=== PATIENT | female | born 1935 | race Caucasian/White ===

== ENCOUNTER 2016-09-03 | Inpatient (IN) | payer MEDICARE, BC ==
[~2016-09-03] VITALS: Ht 162.6 cm; Wt 70.0 kg
[2016-09-03] VITALS (10 sets, daily range): BP systolic 136–176; BP diastolic 66–88; PULSE 77–108; RESP 14–21; TEMP 97.2–99; O2SAT 97–100
[~2016-09-03] MED LIST: ALPR0.25 PO; AMLO10TA2 PO; ESTR0.5T PO; HYDR12.57 PO; LIOT5TAB3 PO; LOVA20TA PO; METO50TA PO; RAMI10CA PO
[2016-09-03 01:12] LABS: AUTOMATED NEUTROPHIL # 20.8 TH/MM3 (1.8-7.7); BASOPHIL % 0.2 % (0.0-2.0); EOSINOPHIL # 0.1 TH/MM3 (0-0.4); EOSINOPHIL % 0.3 % (0.0-4.0); HEMATOCRIT 44.8 % (35.0-46.0); HEMO FLAGS DIFF FINAL; MEAN CELL VOLUME 94.2 FL (80.0-100.0); MEAN CORPUSCULAR HEMOGLOBIN 32.6 PG (27.0-34.0); MEAN CORPUSCULAR HGB CONC 34.6 % (32.0-36.0); MONO % 6.2 % (0.0-8.0); NEUT % 85.3 % (16.0-70.0); PLATELET COUNT 346 TH/MM3 (150-450); RED BLOOD COUNT 4.76 MIL/MM3 (4.00-5.30); RED CELL DISTRIBUTION WIDTH 13.6 % (11.6-17.2); WHITE BLOOD COUNT 24.4 TH/MM3 (4.0-11.0)
[2016-09-03 01:25] LABS: BICARBONATE 21.6 MEQ/L (21.0-32.0); POTASSIUM 3.3 MEQ/L (3.5-5.1)
[2016-09-03] MEDS ORDERED: ONDANSETRON HCL 4 MG/2 ML VIAL IV PUSH ONE (02:00)
[2016-09-03] MEDS ORDERED: SODIUM CHLOR 0.9% 1000 ML INJ 1,000 ML IV ONE (02:00)
[2016-09-03] MEDS ORDERED: VANCOMYCIN INJ 1,000 MG in SODIUM CHLOR 0.9% 250 ML INJ 250 ML IV ONE (02:15)
[2016-09-03] MEDS ORDERED: AZTREONAM INJ 2,000 MG in SODIUM CHLORIDE 0.9% INJ 100 ML IV ONE (02:15)
[2016-09-03] MEDS ORDERED: metroNIDAZOLE 500 MG INJ 100 ML IV ONE (02:15)
--- NOTE | 2016-09-03 02:26 | PD ---
HPI Chief Complaint: GI Complaint Time Seen by Provider: 01:48 Travel History International Travel<30 days: No Contact w/Intl Traveler<30days: No Traveled to known affect area: No History of Present Illness HPI 81yo F with PMH of afib s/p ablation by Dr. Monge, hypothyroidism presents to the ED with c/o generalized weakness and lightheadedness for 3 days. Started having NBNB vomiting at 8pm last night and now started having diarrhea. Denies any abdominal pain at this time. States only discomfort when she vomits. Denies any chest pain, sob, focal weakness or numbness, trauma or spinning of the room. PFSH Past Medical History Hx Anticoagulant Therapy: No Arthritis: Yes (LUMBAR AREA) Asthma: No Atrial Fibrillation: Yes Autoimmune Disease: No Blood Disorders: No Anxiety: Yes Depression: No Heart Rhythm Problems: Yes Cancer: No Cardiac Catheterization: No Cardiovascular Problems: Yes (AFIB ) High Cholesterol: Yes Chemotherapy: No Chest Pain: No Congestive Heart Failure: No COPD: No Cerebrovascular Accident: No Diabetes: No Diminished Hearing: No Endocrine: No Gastrointestinal Disorders: No GERD: No Glaucoma: No Genitourinary: Yes (URINARY TRACT INFECTION IN 2006) Headaches: No Hepatitis: No Hiatal Hernia: No Heparin Induced Thrombocytopen: No Hypertension: Yes Immune Disorder: No Implanted Vascular Access Dvce: Yes Kidney Stones: No Musculoskeletal: Yes (DIFFICULTY WALKING R/T HIP SURGERIES) Neurologic: No Psychiatric: Yes Reproductive: Yes (CYSTS ON OVARY ) Respiratory: No Immunizations Current: Yes Migraines: No Myocardial Infarction: No Radiation Therapy: No Renal Failure: No Seizures: No Sickle Cell Disease: No Sleep Apnea: No Thyroid Disease: No Ulcer: No Influenza Vaccination: Yes PNEUMOCCOCAL Vaccine (Year): 3 Menopausal: Yes Past Surgical History Abdominal Surgery: No AICD: No Appendectomy: No Arteriovenous Shunt: No Cardiac Surgery: Yes (X 3 ABLATIONS FOR A-FIB) Cholecystectomy: No Coronary Artery Bypass Graft: No Ear Surgery: No Endocrine Surgery: No Eye Surgery: No Genitourinary Surgery: No Gynecologic Surgery: Yes (hysterectomy at 52y.o. ) Hysterectomy: Yes Insulin Pump: No Joint Replacement: Yes (bilat hips) Neurologic Surgery: No Oral Surgery: No Pacemaker: No Thoracic Surgery: No Other Surgery: Yes Family History Family Myocardial Infarction: Yes Social History Alcohol Use: No Tobacco Use: No (quit at 27 years of age) Substance Use: No Allergies-Medications (Allergen,Severity, Reaction): Coded Allergies: Ceclor (Verified Allergy, Severe, RASH, 09/03/16) Sulfa (Verified Allergy, Severe, RASH, 09/03/16) Cipro (Verified Allergy, Unknown, GI UPSET, 09/03/16) Clonidine (Verified Allergy, Unknown, SKIN IRRITATION, 09/03/16) Uncoded Allergies: latex bandages (Allergy, Mild, SKIN REDNESS, RASH, 05/10/13) Reported Meds & Prescriptions Reported Meds & Active Scripts Active Reported Liothyronine (Liothyronine Sodium) 5 Mcg Tab 5 Mcg PO DAILY Hydrochlorothiazide 12.5 Mg Cap 12.5 Mg PO DAILY Amlodipine (Amlodipine Besylate) 10 Mg Tab 10 Mg PO DAILY Lovastatin 20 Mg Tab 20 Mg PO DAILY Metoprolol Tartrate 50 Mg Tab 50 Mg PO BID Ramipril 10 Mg Cap 10 Mg PO BID Alprazolam 0.25 Mg Tab 0.25 Mg PO Q6H PRN Estradiol 0.5 Mg Tab 0.5 Mg PO WEEKLY Review of Systems Except as stated in HPI: all other systems reviewed are Neg Physical Exam Narrative GENERAL: 81yo F not in distress. SKIN: Warm and dry. HEAD: Atraumatic. Normocephalic. EYES: Pupils equal and round. No scleral icterus. No injection or drainage. ENT: No nasal bleeding or discharge. Mucous membranes pink and moist. NECK: Trachea midline. No JVD. CARDIOVASCULAR: Regular rate and rhythm. No murmur appreciated. RESPIRATORY: No accessory muscle use. Clear to auscultation. Breath sounds equal bilaterally. GASTROINTESTINAL: Abdomen soft, non-tender, nondistended. No rebound tenderness or guarding. MUSCULOSKELETAL: No obvious deformities. No clubbing. No cyanosis. No edema. NEUROLOGICAL: Awake and alert. No obvious cranial nerve deficits. Motor grossly within normal limits. Normal speech. PSYCHIATRIC: Appropriate mood and affect; insight and judgment normal. Data Data Last Documented VS Vital Signs Date Time Temp Pulse Resp B/P Pulse Ox O2 Delivery O2 Flow Rate FiO2 09/03/16 03:44 95 20 136/88 98 Room Air 09/03/16 00:03 97.2 Orders Complete Blood Count With Diff (09/03/16 00:16) Basic Metabolic Panel (Bmp) (09/03/16 00:16) Influenzae A/B Antigen (09/03/16 00:16) Ondansetron Inj (Zofran Inj) (09/03/16 02:00) Sodium Chlor 0.9% 1000 Ml Inj (Ns 1000 M (09/03/16 02:00) Blood Culture (09/03/16 02:03) Lactic Acid Sepsis Protocol (09/03/16 02:03) Urinalysis - C+S If Indicated (09/03/16 02:03) Chest, Single Ap (09/03/16 ) Electrocardiogram (09/03/16 ) Vancomycin Inj (Vancomycin Inj) (09/03/16 02:15) Aztreonam Inj (Azactam Inj) (09/03/16 02:15) Metronidazole 500 Mg Inj (Flagyl 500 Mg (09/03/16 02:15) Potassium Chloride (Kcl) (09/03/16 03:15) Admit Order (Ed Use Only) (09/03/16 04:03) Vancomycin Consult Pharmacy (Vancomycin (09/03/16 04:00) Metronidazole 500 Mg Inj (Flagyl 500 Mg (09/03/16 10:00) Aztreonam Inj (Azactam Inj) (09/03/16 13:00) Pantoprazole Inj (Protonix Inj) (09/03/16 04:00) Admit To Inpatient (09/03/16 ) Vital Signs (Adult) Q4H (09/03/16 04:00) Activity Oob With Assistance (09/03/16 04:00) Cable Cutter And Swager / Telemetry .CONTINUOUS (09/03/16 04:00) Intake + Output EVA.QSHIFT (09/03/16 04:00) Diet Regular Basic (09/03/16 Breakfast) Sodium Chlor 0.9% 1000 Ml Inj (Ns 1000 M (09/03/16 04:00) Sodium Chloride 0.9% Flush (Ns Flush) (09/03/16 04:00) Sodium Chloride 0.9% Flush (Ns Flush) (09/03/16 09:00) Ondansetron Inj (Zofran Inj) (09/03/16 04:00) Bisacodyl Supp (Dulcolax Supp) (09/03/16 04:00) Comprehensive Metabolic Panel (09/04/16 06:00) Complete Blood Count With Diff (09/04/16 06:00) Scd Bilateral/Knee High EVA.BID (09/03/16 04:00) Rodriguez Bilateral/Knee High EVA.QSHIFT (09/03/16 04:00) Acetaminophen (Tylenol) (09/03/16 04:00) Acetamin-Hydrocod 325-5 Mg ([place] 5-325 (09/03/16 04:00) Morphine Inj (Morphine Inj) (09/03/16 04:00) Inpatient Certification (09/03/16 ) Labs Laboratory Tests Test 09/03/16 09/03/16 00:51 03:00 White Blood Count 24.4 TH/MM3 Red Blood Count 4.76 MIL/MM3 Hemoglobin 15.5 GM/DL Hematocrit 44.8 % Mean Corpuscular Volume 94.2 FL Mean Corpuscular Hemoglobin 32.6 PG Mean Corpuscular Hemoglobin 34.6 % Concent Red Cell Distribution Width 13.6 % Platelet Count 346 TH/MM3 Mean Platelet Volume 7.4 FL Neutrophils (%) (Auto) 85.3 % Lymphocytes (%) (Auto) 8.0 % Monocytes (%) (Auto) 6.2 % Eosinophils (%) (Auto) 0.3 % Basophils (%) (Auto) 0.2 % Neutrophils # (Auto) 20.8 TH/MM3 Lymphocytes # (Auto) 2.0 TH/MM3 Monocytes # (Auto) 1.5 TH/MM3 Eosinophils # (Auto) 0.1 TH/MM3 Basophils # (Auto) 0.0 TH/MM3 CBC Comment DIFF FINAL Differential Comment Sodium Level 131 MEQ/L Potassium Level 3.3 MEQ/L Chloride Level 99 MEQ/L Carbon Dioxide Level 21.6 MEQ/L Anion Gap 10 MEQ/L Blood Urea Nitrogen 36 MG/DL Creatinine 1.18 MG/DL Estimat Glomerular Filtration 44 ML/MIN Rate Random Glucose 194 MG/DL Calcium Level 8.6 MG/DL Lactic Acid Level 1.7 mmol/L [facility] Medical Decision Making Medical Screen Exam Complete: Yes Emergency Medical Condition: Yes Interpretation(s) EKG: NSR 98bpm. LAD. +PACs. Differential Diagnosis Electrolyte abnormality vs. dehydration vs. UTI Narrative Course 81yo F with generalized weakness for 3 days. Labs reviewed, leukocytosis at 24.4. HR over 90 so empirically covered with antibiotics with no known source. Pt given vancomycin, aztreonam, and metronidazole. Pt given given zofran and IVF NS. Pt had some cough so CXR ordered which showed cardiomegaly with atelectasis. Potassium mildly decreased, replaced orally. Pt admitted for sepsis and dehydration. Diagnosis Primary Impression: Sepsis Qualified Code: A41.9 - Sepsis, due to unspecified organism Admitting Information Admitting Physician Requests: Admit Gardenia Lancaster DO Sep 03, 2016 02:26
--- NOTE | 2016-09-03 03:05 | RADRPT ---
EXAM DATE/TIME: 09/03/2016 02:27 [place] COMPARISON: CHEST SINGLE AP, July 07, 2016, 18:16. INDICATIONS : Chest discomfort, vomiting starting today MEDICAL HISTORY : None. SURGICAL HISTORY : None. ENCOUNTER: Initial ACUITY: 1 day PAIN SCORE: 0/10 LOCATION: Bilateral chest FINDINGS: The cardiac silhouette is enlarged in transverse diameter. There is prominence of the aortic knob is with calcification characteristic of atherosclerotic vascular disease. There is subsegmental atelecta sis in the left base. There is no evidence of pneumonia. CONCLUSION: 1. Cardiomegaly 2. Subsegmental atelectasis left base. Robert Garza MD on September 03, 2016 at 3:03 Board Certified Radiologist. This report was verified electronically.
[2016-09-03] MEDS ORDERED: POTASSIUM CHLORIDE 20 MEQ CONTROLLED RELEASE TAB PO ONE (03:15)
[2016-09-03] MEDS ORDERED: ONDANSETRON HCL 4 MG/2 ML VIAL IVP PRN (04:00)
[2016-09-03] MEDS ORDERED: ACETAMINOPHEN/HYDROcodone 325 MG/5 MG TAB PO PRN (04:00)
[2016-09-03] MEDS ORDERED: BISACODYL 10 MG SUPP PR PRN (04:00)
[2016-09-03] MEDS ORDERED: MORPHINE SULFATE 4 MG/ML INJ IV PRN (04:00)
[2016-09-03] MEDS ORDERED: ACETAMINOPHEN 325 MG TAB PO PRN (04:00)
[2016-09-03] MEDS ORDERED: Vancomycin Consult Pharmacy 1 EA OTHER SCH (04:00)
[2016-09-03] MEDS ORDERED: SODIUM CHLORIDE 0.9% FLUSH 5 ML FLUSH FLUSH PRN (04:00)
[2016-09-03] MEDS: SODIUM CHLOR 0.9% 1000 ML INJ 1,000 ML IV SCH ×3 (04:40→15:56)
[2016-09-03] MEDS: PANTOPRAZOLE SODIUM 40 MG VIAL IV PUSH SCH ×2 (04:51→15:58)
--- NOTE | 2016-09-03 05:29 | HHI.HP ---
[facility] Champ Reyes MD Admission Diagnosis Sepsis Diagnoses: (1) Sepsis Diagnosis: Principal (2) Intractable nausea and vomiting Diagnosis: Principal (3) Renal insufficiency Diagnosis: Principal (4) HTN (hypertension) Diagnosis: Principal Travel History International Travel<30 Days: No Contact w/Intl Traveler <30 Da: No Traveled to Known Affected Are: No History of Present Illness This is a 81-year-old female with a PMH of HTN, h/o A-fib s/p Ablation, Hypothyroidism and Hyperlipidemia who presented to the ER with complaints of generalized weakness x3 days in addition to acute onset of nausea/vomiting starting earlier this evening. Denies abdominal pain, fever, chills or diarrhea. No recent sick contacts. On arrival, BP 151/73, HR 108, O2 sat 100% on RA, Afebrile. WBC 24.4. K+ 3.3 s/p replacement in ER. Creatinine 1.18, previously 1.40 on 07/07/16. Lactic Acid 1.7. U/a pending. CXR with cardiomegaly, subsegmental atelectasis left base. S/p Blood Cultures, IV Vanc/ Azactam/Flagyl in ER. Review of Systems Except as stated in HPI: all other systems reviewed are Neg ROS: 14 point review of systems otherwise negative. Past Family Social History Past Medical History PMH: HTN, h/o A-fib s/p Ablation, Hypothyroidism and Hyperlipidemia Past Surgical History PAST SURGICAL HISTORY: Cardiac Ablation, Hysterectomy, Bilateral Hip Replacement Allergies: Coded Allergies: Ceclor (Verified Allergy, Severe, RASH, 09/03/16) Sulfa (Verified Allergy, Severe, RASH, 09/03/16) Cipro (Verified Allergy, Unknown, GI UPSET, 09/03/16) Clonidine (Verified Allergy, Unknown, SKIN IRRITATION, 09/03/16) Uncoded Allergies: latex bandages (Allergy, Mild, SKIN REDNESS, RASH, 05/10/13) Family History PAST FAMILY HISTORY: Reviewed. No h/o DM or CAD Social History PAST SOCIAL HISTORY: Negative for alcohol, tobacco or drugs. Physical Exam Vital Signs Vital Signs Date Time Temp Pulse Resp B/P Pulse Ox O2 Delivery O2 Flow Rate FiO2 09/03/16 03:44 95 20 136/88 98 Room Air 09/03/16 01:49 108 16 151/73 100 Room Air 09/03/16 00:03 97.2 99 20 137/73 99 Physical Exam PE: GENERAL: Elderly female in no acute distress. HEENT: PERRLA, EOMI. No scleral icterus or conjunctival pallor. No lid lag or facial droop. CARDIOVASCULAR: Regular rate and rhythm. No obvious murmurs to auscultation. No chest tenderness to palpation. RESPIRATORY: No obvious rhonchi or wheezing. Clear to auscultation. Breath sounds equal bilaterally. GASTROINTESTINAL: Abdomen soft, non-tender, nondistended. BS normal. MUSCULOSKELETAL: Extremities without clubbing, cyanosis, or edema. No obvious deformities. NEUROLOGICAL: Awake, alert and oriented x4. No focal neurologic deficits. Moving both upper and lower extremities spontaneously. Laboratory Laboratory Tests Test 09/03/16 09/03/16 00:51 03:00 White Blood Count 24.4 Red Blood Count 4.76 Hemoglobin 15.5 Hematocrit 44.8 Mean Corpuscular Volume 94.2 Mean Corpuscular Hemoglobin 32.6 Mean Corpuscular Hemoglobin 34.6 Concent Red Cell Distribution Width 13.6 Platelet Count 346 Mean Platelet Volume 7.4 Neutrophils (%) (Auto) 85.3 Lymphocytes (%) (Auto) 8.0 Monocytes (%) (Auto) 6.2 Eosinophils (%) (Auto) 0.3 Basophils (%) (Auto) 0.2 Neutrophils # (Auto) 20.8 Lymphocytes # (Auto) 2.0 Monocytes # (Auto) 1.5 Eosinophils # (Auto) 0.1 Basophils # (Auto) 0.0 CBC Comment DIFF FINAL Differential Comment Sodium Level 131 Potassium Level 3.3 Chloride Level 99 Carbon Dioxide Level 21.6 Anion Gap 10 Blood Urea Nitrogen 36 Creatinine 1.18 Estimat Glomerular Filtration 44 Rate Random Glucose 194 Calcium Level 8.6 Lactic Acid Level 1.7 Date/Time Procedure Status Source Growth 09/03/16 03:12 Aerobic Blood Culture Received Blood Peripheral Pending 09/03/16 03:12 Anaerobic Blood Culture Received Blood Peripheral Pending 09/03/16 00:51 Influenza Types A,B Antigen (CANDIE) - Final Complete Nasal Washing NEGATIVE FOR FLU A AND B ANTIGEN.... Result Diagram: 09/03/165009/03/1650 Assessment and Plan Problem List: (1) Sepsis ICD Code: A41.9 Status: Acute (2) Intractable nausea and vomiting ICD Code: R11.2 Status: Acute (3) Renal insufficiency ICD Code: N28.9 Status: Acute (4) HTN (hypertension) ICD Code: I10 Status: Acute Assessment and Plan A/P: 1. Sepsis: HR 108, WBC 24, RR 20, Source-unclear. CXR w/ acute findings, images reviewed by me. U/a pending-possibly source. S/p Blood Cultures, IV Vanc/Azactam/Flagyl in ER, follow up cultures, follow up U/a, continue IV Abx, IVF for hydration. 2. Intractable Nausea/Vomiting: starting this evening, no c/o abdominal pain, n/v now improved. Continue antiemetics as needed. 3. Renal Insufficiency: Chronic. Creatinine 1.18, previously 1.40 on . Check U/a, IVF for hydration, repeat labs in am. Hold Ramipril and HCTZ. 4. HTN: BP 150's systolic on arrival, likely compounded by acute nausea/ vomiting, BP currently 130's systolic. Will monitor. 5. DVT Prophylaxis: SCD/Teds. 6. Social work for d/c planning as needed. 7. Case discussed w/ ER physician at length. Physician Certification 2 Midnight Certification Type: Admission for Inpatient Services Order for Inpatient Services The services are ordered in accordance with Medicare regulations or non- Medicare payer requirements, as applicable. In the case of services not specified as inpatient-only, they are appropriately provided as inpatient services in accordance with the 2-midnight benchmark. Estimated LOS (days): 2 days is the estimated time the patient will need to remain in the hospital, assuming treatment plan goals are met and no additional complications. Post-Hospital Plan: Not yet determined Gena Jesus MD Sep 03, 2016 05:29
--- NOTE | 2016-09-03 08:34 | EKG ---
Date Performed: 09/03/2016 Time Performed: 03:36:34 PTAGE: 81 years EKG: Sinus rhythm WITH OCCASIONAL SUPRAVENTRICULAR PREMATURE COMPLEXES NONSPECIFIC ST & T-WAVE ABNORMALITY BORDERLINE ECG PREVIOUS TRACING : 07/07/2016 18.11 DOCTOR: Phil Franco Interpretating Date/Time 09/03/2016 08:33:06
[2016-09-03] MEDS: SODIUM CHLORIDE 0.9% FLUSH 5 ML FLUSH FLUSH SCH ×2 (08:51→21:00)
[2016-09-03] MEDS: metroNIDAZOLE 500 MG INJ 100 ML IV SCH ×2 (10:09→18:56)
[2016-09-03] MEDS ORDERED: ALPRAZolam 0.25 MG TAB PO PRN (10:15)
[2016-09-03] MEDS ORDERED: CALCIUM CARBONATE 500 MG CHEWABLE TAB CHEW PRN (10:15)
[2016-09-03] MEDS ORDERED: DIPHENOXYLATE/ATROPINE 2.5 MG/0.025 MG TAB PO PRN (10:15)
[2016-09-03] MEDS ORDERED: TEMAZEPAM 15 MG CAP PO PRN (10:15)
[2016-09-03] MEDS ORDERED: LOPERAMIDE HCL 2 MG CAP PO PRN (10:15)
[2016-09-03 10:41] LABS: BLOOD, URINE NEG (NEG); COMMENT (UR) CATH-CULT NOT IND; CULTURE IF INDICATED CATH CULTURE NOT IND; GLUCOSE,URINE NEG (NEG); KETONE, URINE NEG (NEG); MUCUS URINE FEW /lpf (OCC); NITRITE,URINE NEG (NEG); SQUAMOUS EPITHELIAL CELL URINE 4 /hpf (0-5); URINE COLOR YELLOW (YELLW/STRAW)
[2016-09-03] MEDS: METOPROLOL TARTRATE 50 MG TAB PO SCH ×2 (11:00→21:43)
[2016-09-03] MEDS: RAMIPRIL 5 MG CAP PO SCH ×2 (11:00→21:39)
[2016-09-03] MEDS: AZTREONAM INJ 1,000 MG in SODIUM CHLORIDE 0.9% INJ 100 ML IV SCH ×2 (13:13→21:37)
--- NOTE | 2016-09-03 14:06 | HHI.PR ---
Subjective Remarks Follow-up sepsis 09/03/16-patient seen and examined, complaint of abdominal squeakiness, diarrhea but now with improved nausea and vomiting. Currently afebrile Objective Vitals Vital Signs Date Time Temp Pulse Resp B/P Pulse Ox O2 Delivery O2 Flow Rate FiO2 09/03/16 10:44 101 16 169/76 97 Room Air 09/03/16 07:27 98.4 96 14 163/75 97 Room Air 09/03/16 06:02 98 163/79 97 Room Air 09/03/16 03:44 95 20 136/88 98 Room Air 09/03/16 01:49 108 16 151/73 100 Room Air 09/03/16 00:03 97.2 99 20 137/73 99 Result Diagram: 09/03/16 0051 09/03/16 0051 Imaging Last Impressions Chest X-Ray 09/03/16 0000 Signed Impressions: Service Date/Time: August 02:27 - CONCLUSION: 1. Cardiomegaly 2. Subsegmental atelectasis left base. Robert Garza MD Objective Remarks GENERAL: mild distress SKIN: Warm and dry. HEAD: Normocephalic. EYES: No scleral icterus. No injection or drainage. NECK: Supple, trachea midline. No JVD or lymphadenopathy. CARDIOVASCULAR: Regular rate and rhythm without murmurs, gallops, or rubs. RESPIRATORY: Breath sounds equal bilaterally. No accessory muscle use. GASTROINTESTINAL: Abdomen soft, mildly tender, nondistended. MUSCULOSKELETAL: No cyanosis, or edema. BACK: Nontender without obvious deformity. No CVA tenderness. A/P Problem List: (1) Sepsis ICD Code: A41.9 Status: Acute (2) Intractable nausea and vomiting ICD Code: R11.2 Status: Acute (3) Renal insufficiency ICD Code: N28.9 Status: Acute (4) HTN (hypertension) ICD Code: I10 Status: Acute Assessment and Plan 81-year-old female with 1. Sepsis: , Source-unclear. CXR w/ acute findings. U/a pending-possibly source. Monitor Blood Cultures, continue IV Vanc/Azactam/Flagyl add Lactinex as well as IV fluid hydration , follow up cultures, UA negative. 2. Intractable Nausea/Vomiting: Continue antiemetics as needed. 3. Renal Insufficiency: Chronic. Continue with IV fluid hydration, avoid all nephrotoxic drugs and monitor BUN and creatinine. Hold Ramipril and HCTZ. 4. HTN: Resume Lopressor, Norvasc 5. History of atrial fibrillation: Currently rate control, resume Lopressor. Patient not on oral anti-coagulation 6. Hypothyroidism: Resume Synthroid in a.m. 7. DVT Prophylaxis: SCD/Teds. PT consult to treat in a.m. Blake Graham MD Sep 03, 2016 14:05
[2016-09-03] MEDS ORDERED: VANCOMYCIN INJ 1,500 MG in SODIUM CHLORID 0.9% 500 ML INJ 500 ML IV SCH (20:00)
[2016-09-03] MEDS: LACTOBACILLUS ACIDOPHILUS TAB PO SCH (21:43)
[2016-09-04] MEDS: metroNIDAZOLE 500 MG INJ 100 ML IV SCH ×2 (02:51→09:08)
[2016-09-04 04:29] LABS: AUTOMATED NEUTROPHIL # 6.1 TH/MM3 (1.8-7.7); BASOPHIL % 0.4 % (0.0-2.0); EOSINOPHIL # 0.1 TH/MM3 (0-0.4); EOSINOPHIL % 0.7 % (0.0-4.0); HEMATOCRIT 36.5 % (35.0-46.0); HEMO FLAGS DIFF FINAL; LYMPH % 11.8 % (9.0-44.0); LYMPHOCYTE # 0.9 TH/MM3 (1.0-4.8); MEAN CELL VOLUME 95.6 FL (80.0-100.0); MEAN CORPUSCULAR HEMOGLOBIN 33.2 PG (27.0-34.0); MEAN CORPUSCULAR HGB CONC 34.8 % (32.0-36.0); MONO % 10.8 % (0.0-8.0); NEUT % 76.3 % (16.0-70.0); PLATELET COUNT 223 TH/MM3 (150-450); RED BLOOD COUNT 3.82 MIL/MM3 (4.00-5.30); RED CELL DISTRIBUTION WIDTH 13.8 % (11.6-17.2)
[2016-09-04 04:44] LABS: BICARBONATE 22.4 MEQ/L (21.0-32.0); CALCIUM-PROTEIN CORRECTED 8.5 MG/DL (8.5-10.1); POTASSIUM 3.6 MEQ/L (3.5-5.1); TOTAL BILIRUBIN ADULT 0.6 MG/DL (0.2-1.0)
[2016-09-04] MEDS: PANTOPRAZOLE SODIUM 40 MG VIAL IV PUSH SCH (05:18)
[2016-09-04] MEDS: AZTREONAM INJ 1,000 MG in SODIUM CHLORIDE 0.9% INJ 100 ML IV SCH (05:18)
[2016-09-04] MEDS ORDERED: LIOTHYRONINE SODIUM 5 MCG TAB PO SCH (06:00)
[2016-09-04] MEDS: SODIUM CHLOR 0.9% 1000 ML INJ 1,000 ML IV SCH (06:09)
[2016-09-04 07:37] VITALS: BP 138/73; PULSE 96; RESP 18; O2SAT 96
[2016-09-04] MEDS: RAMIPRIL 5 MG CAP PO SCH (08:46)
[2016-09-04] MEDS: METOPROLOL TARTRATE 50 MG TAB PO SCH (08:46)
[2016-09-04] MEDS: LACTOBACILLUS ACIDOPHILUS TAB PO SCH (08:47)
[2016-09-04] MEDS ORDERED: HYDROCHLOROTHIAZIDE 12.5 MG CAP PO SCH (09:00)
[2016-09-04] MEDS ORDERED: PRAVASTATIN SOD 20 MG TAB PO SCH (09:00)
[2016-09-04] MEDS: SODIUM CHLORIDE 0.9% FLUSH 5 ML FLUSH FLUSH SCH (09:00)
--- NOTE | 2016-09-04 09:10 | HHI.PR ---
Subjective Remarks Follow-up sepsis 09/03/16-patient seen and examined, complaint of abdominal squeakiness, diarrhea but now with improved nausea and vomiting. Currently afebrile 09/04/16-patient seen and examined, vitals stable, denies any nausea and vomiting. No more diarrhea episodes. Patient would like to be discharged home. Objective Vitals Vital Signs Date Time Temp Pulse Resp B/P Pulse Ox O2 Delivery O2 Flow Rate FiO2 09/04/16 07:37 96 18 138/73 96 Room Air 09/03/16 21:33 90 21 176/79 97 Room Air 09/03/16 18:56 99.0 85 15 171/73 98 Room Air 09/03/16 15:50 77 15 143/66 98 Room Air 09/03/16 12:19 83 16 150/69 97 Room Air 09/03/16 10:44 101 16 169/76 97 Room Air Result Diagram: 09/04/16 0350 09/04/16 0350 Imaging Last Impressions Chest X-Ray 09/03/16 0000 Signed Impressions: Service Date/Time: August 02:27 - CONCLUSION: 1. Cardiomegaly 2. Subsegmental atelectasis left base. Robert Garza MD Objective Remarks GENERAL: mild distress SKIN: Warm and dry. HEAD: Normocephalic. EYES: No scleral icterus. No injection or drainage. NECK: Supple, trachea midline. No JVD or lymphadenopathy. CARDIOVASCULAR: Regular rate and rhythm without murmurs, gallops, or rubs. RESPIRATORY: Breath sounds equal bilaterally. No accessory muscle use. GASTROINTESTINAL: Abdomen soft, mildly tender, nondistended. MUSCULOSKELETAL: No cyanosis, or edema. BACK: Nontender without obvious deformity. No CVA tenderness. A/P Problem List: (1) Sepsis ICD Code: A41.9 Status: Resolved (2) Intractable nausea and vomiting ICD Code: R11.2 Status: Resolved (3) Renal insufficiency ICD Code: N28.9 Status: Resolved (4) HTN (hypertension) ICD Code: I10 Status: Acute Assessment and Plan 81-year-old female with 1. Sepsis: Now resolved. Source-unclear. CXR w/ acute findings. U/a pending- possibly source. Monitor Blood Cultures, continue IV Vanc/Azactam/Flagyl add Lactinex as well as IV fluid hydration , follow up cultures, UA negative. 2. Intractable Nausea/Vomiting: Resolved Continue antiemetics as needed. 3. Renal Insufficiency: Chronic. Improved with IV fluid hydration, avoid all nephrotoxic drugs and monitor BUN and creatinine. Resume Ramipril and HCTZ. 4. HTN: Continue Lopressor, Norvasc 5. History of atrial fibrillation: Currently rate control on Lopressor. Patient not on oral anti-coagulation 6. Hypothyroidism: on Synthroid in a.m. 7. DVT Prophylaxis: SCD/Teds. PT consult to treat in a.m. Patient condition significantly improved, she more likely would be discharged today. Discharge Planning Discharge patient to home Condition on discharge: Improved Regular Diet as tolerated Ad Allie activity Rx written:None Follow-up with primary care physician in 1 week Problem Qualifiers (1) Sepsis: Qualified Code: A41.9 - Sepsis, due to unspecified organism Blake Graham MD Sep 04, 2016 09:10
--- NOTE | 2016-09-04 09:15 | HHI.FF ---
Face to Face Verification Diagnosis: (1) Sepsis (2) HTN (hypertension) (3) Intractable nausea and vomiting Home Health Nursing Order: Signs/symptoms of disease process I have seen patient Rachna Ferreira on 09/04/16. My clinical findings support the need for the requested home health care services because: Patient has SOB I certify that my clinical findings support that this patient is homebound because: Poor cardiac reserve Blake Graham MD Sep 04, 2016 09:15
[2016-09-05] MEDS ORDERED: AUGM875T PO (08:24)
[2016-09-05] MEDS ORDERED: ASPI81CH7 CHEW (08:29)
[2016-09-06] MEDS ORDERED: PHARMACY ORDERED LAB XX ONE (19:45)
== END 2016-09-04 09:47 | disposition home or self-care (01) | DRG 872 ==
LOC: NEPC → NEDA 04:04 → NEDH 07:31
PROVIDERS: ADMIT Hospitalist; ATTEND Hospitalist
DX: A41.9 Sepsis, unspecified organism (principal); I48.91 Unspecified atrial fibrillation; E86.0 Dehydration; I12.9 Hypertensive chronic kidney disease with stage 1 through stage 4 chronic kidney disease, or unspecified chronic kidney disease; E03.9 Hypothyroidism, unspecified; E78.5 Hyperlipidemia, unspecified; E87.6 Hypokalemia; N18.9 Chronic kidney disease, unspecified; R11.2 Nausea with vomiting, unspecified; M47.9 Spondylosis, unspecified; Z87.891 Personal history of nicotine dependence; Z96.643 Presence of artificial hip joint, bilateral
CPT/HCPCS: 71010; 80048; 80053; 81001; 83605; 85025; 87040; 87804; 93005; 96361; 96365; 96375; C9113; J2405; J3370; J7030; J7040; J7050

== ENCOUNTER 2016-09-05 08:09 | Emergency (ER) | payer MEDICARE, BC ==
[~2016-09-05] VITALS: Ht 162.6 cm; Wt 68.5 kg
[2016-09-05 08:13] VITALS: BP 121/64; PULSE 92; RESP 16; TEMP 97.5; O2SAT 96
[2016-09-05] MEDS ORDERED: AUGM875T PO (08:24)
--- NOTE | 2016-09-05 08:24 | PD ---
HPI Chief Complaint: Bite or Sting Time Seen by Provider: 08:17 Travel History International Travel<30 days: No Contact w/Intl Traveler<30days: No Traveled to known affect area: No History of Present Illness HPI 81-year-old female here with complaint of cat bite. Patient was bit on the dorsum of her right hand yesterday by her own house cat. Immunizations on the cat are up to date as an outpatient. Patient states that she washed it out with soap and water, and alcohol. She denies any loss of functions, redness, swelling. Patient concerned that she saw an area of "white" and thought it might be a tendon prompting her ER visit. PFSH Past Medical History Hx Anticoagulant Therapy: No Arthritis: Yes (LUMBAR AREA) Asthma: No Atrial Fibrillation: Yes Autoimmune Disease: No Blood Disorders: No Anxiety: Yes (takes alprazolam) Depression: No Heart Rhythm Problems: Yes Cancer: No Cardiac Catheterization: No Cardiovascular Problems: Yes (HTN, CHOL) High Cholesterol: Yes Chemotherapy: No Chest Pain: No Congestive Heart Failure: No COPD: No Cerebrovascular Accident: No Diabetes: No Diminished Hearing: No Endocrine: Yes Gastrointestinal Disorders: No GERD: No Glaucoma: No Genitourinary: Yes (URINARY TRACT INFECTION IN 2006) Headaches: No Hepatitis: No Hiatal Hernia: No Heparin Induced Thrombocytopen: No Hypertension: Yes Immune Disorder: No Implanted Vascular Access Dvce: Yes Kidney Stones: No Musculoskeletal: Yes (DIFFICULTY WALKING R/T HIP SURGERIES) Neurologic: No Psychiatric: Yes Reproductive: Yes (CYSTS ON OVARY ) Respiratory: No Immunizations Current: Yes Migraines: No Myocardial Infarction: No Radiation Therapy: No Renal Failure: No Seizures: No Sickle Cell Disease: No Sleep Apnea: No Thyroid Disease: Yes Ulcer: No PNEUMOCCOCAL Vaccine (Year): 3 ?: Not Menopausal: Yes Past Surgical History Abdominal Surgery: No AICD: No Appendectomy: No Arteriovenous Shunt: No Cardiac Surgery: Yes (X 3 ABLATIONS FOR A-FIB) Cholecystectomy: No Coronary Artery Bypass Graft: No Ear Surgery: No Endocrine Surgery: No Eye Surgery: No Genitourinary Surgery: No Gynecologic Surgery: Yes (hysterectomy at 52y.o. ) Hysterectomy: Yes Insulin Pump: No Joint Replacement: Yes (bilat hips) Neurologic Surgery: No Oral Surgery: No Pacemaker: No Thoracic Surgery: No Other Surgery: Yes Social History Alcohol Use: No Tobacco Use: No (quit at 27 years of age) Substance Use: No Allergies-Medications (Allergen,Severity, Reaction): Coded Allergies: Ceclor (Verified Allergy, Severe, RASH, 09/05/16) Sulfa (Verified Allergy, Severe, RASH, 09/05/16) Cipro (Verified Allergy, Unknown, GI UPSET, 09/05/16) Clonidine (Verified Allergy, Unknown, SKIN IRRITATION, 09/05/16) Uncoded Allergies: latex bandages (Allergy, Mild, SKIN REDNESS, RASH, 05/10/13) Reported Meds & Prescriptions Reported Meds & Active Scripts Active Augmentin (Amoxicillin-Clavulanate) 875-125 mg Tab 875 Mg PO BID 5 Days not for use in CrCl <30 ml/min. Reported Liothyronine (Liothyronine Sodium) 5 Mcg Tab 5 Mcg PO DAILY Hydrochlorothiazide 12.5 Mg Cap 12.5 Mg PO DAILY Amlodipine (Amlodipine Besylate) 10 Mg Tab 10 Mg PO DAILY Lovastatin 20 Mg Tab 20 Mg PO DAILY Metoprolol Tartrate 50 Mg Tab 50 Mg PO BID Ramipril 10 Mg Cap 10 Mg PO BID Alprazolam 0.25 Mg Tab 0.25 Mg PO Q6H PRN Estradiol 0.5 Mg Tab 0.5 Mg PO WEEKLY Review of Systems Except as stated in HPI: all other systems reviewed are Neg General / Constitutional: No: Fever Musculoskeletal: No: Pain Skin: Positive Other Physical Exam Narrative GENERAL: Well-appearing elderly female in no acute distress SKIN: Warm and dry. HEAD: Normocephalic. EYES: No scleral icterus. No injection or drainage. ENT: Mucous membranes pink and moist. CARDIOVASCULAR: Regular rate and rhythm. RESPIRATORY: No accessory muscle use. MUSCULOSKELETAL: Dorsum of the right hand with superficial skin tear, small amount of subcutaneous fat exposed. There is no evidence of tendon, ligamentous injury. No erythema. Patient has minimal surrounding bruising. NEUROLOGICAL: Awake and alert. Normal gait. Normal speech. PSYCHIATRIC: Appropriate mood and affect; insight and judgment normal. Data Data Last Documented VS Vital Signs Date Time Temp Pulse Resp B/P Pulse Ox O2 Delivery O2 Flow Rate FiO2 09/05/16 08:13 97.5 92 16 121/64 96 MDM Medical Decision Making Medical Screen Exam Complete: Yes Emergency Medical Condition: Yes Medical Record Reviewed: Yes Differential Diagnosis 81-year-old female here with complaint of cat bite to right hand yesterday. Exam is unremarkable with superficial skin tear. No evidence of cellulitis at this time. No evidence of deep soft tissue, tendon, ligamentous injury. We will treat with Augmentin for prophylaxis for infection and discharged home. Narrative Course See above Diagnosis Primary Impression: Cat bite of hand Qualified Code: S61.451A - Cat bite of hand, right, initial encounter Referrals: Primary Care Physician as needed Patient Instructions: Animal Bite (ED), General Instructions Additional Instructions: Finish antibiotics as prescribed. Return to the emergency department for the warning signs discussed. Med/Other Pt SpecificInfo: Prescription(s) given Scripts Amoxicillin-Clavulanate (Augmentin)875-125 mg [id number] Mg PO BID 5 Days Ref 0 not for use in CrCl <30 ml/min. Prov:Lorena Romero MD 09/05/16 Disposition: 01 DISCHARGE HOME Condition: Stable Lorena Romero MD Sep 05, 2016 08:24
[2016-09-05] MEDS ORDERED: ASPI81CH7 CHEW (08:29)
== END 2016-09-05 08:43 | disposition home or self-care (01) ==
LOC: PHED 08:09
DX: S61.451A Open bite of right hand, initial encounter (principal); W55.01XA Bitten by cat, initial encounter; Y93.89 Activity, other specified; Y99.9 Unspecified external cause status
CPT/HCPCS: 99283

== ENCOUNTER 2016-10-17 21:55 | Emergency (ER) | payer MEDICARE, BC ==
[~2016-10-17 21:55] MED LIST changes: +ASPI81CH7 CHEW; +AUGM875T PO
[2016-10-17 21:59] VITALS: BP 182/79; PULSE 115; RESP 16; TEMP 97.8; O2SAT 99
[2016-10-17 22:15] VITALS: BP 143/89; PULSE 92; RESP 24; O2SAT 99
[2016-10-17] MEDS ORDERED: SODIUM CHLORIDE 0.9% FLUSH 10 ML FLUSH IVF PRN (22:15)
--- NOTE | 2016-10-17 22:21 | PD ---
HPI Chief Complaint: Cardiac Complaint Time Seen by Provider: 22:08 Travel History International Travel<30 days: No Contact w/Intl Traveler<30days: No Traveled to known affect area: No History of Present Illness HPI 81-year-old female with history of A. fib, HTN, HLD here with complaint of shortness of breath and palpitations. Over the last 3 weeks patient states that she's had intermittent palpitations with associated shortness of breath. 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 The symptoms have progressed and today since approximate 5 PM patient has had constant palpitations. Shortness of breath, both at rest and with exertion. She notes a slight discomfort in the chest but denies any genuine pain. She has been compliant with all medications. Previous ablations 3 for atrial fibrillation. She notes swelling in the lower extremities, worse today than typical. She has not noticed of her shortness of breath is worse when laying flat, denies history of heart failure. PFSH Past Medical History Hx Anticoagulant Therapy: No Arthritis: Yes (LUMBAR AREA) Asthma: No Atrial Fibrillation: Yes Autoimmune Disease: No Blood Disorders: No Anxiety: Yes (takes alprazolam) Depression: No Heart Rhythm Problems: Yes Cancer: No Cardiac Catheterization: No Cardiovascular Problems: Yes (ABLATION x3/AFIB) High Cholesterol: Yes Chemotherapy: No Chest Pain: No Congestive Heart Failure: No COPD: No Cerebrovascular Accident: No Diabetes: No Diminished Hearing: No Endocrine: Yes Gastrointestinal Disorders: No GERD: No Glaucoma: No Genitourinary: Yes (URINARY TRACT INFECTION IN 2006) Headaches: No Hepatitis: No Hiatal Hernia: No Heparin Induced Thrombocytopen: No Hypertension: Yes Immune Disorder: No Implanted Vascular Access Dvce: Yes Kidney Stones: No Musculoskeletal: Yes (DIFFICULTY WALKING R/T HIP SURGERIES) Neurologic: No Psychiatric: Yes Reproductive: Yes (CYSTS ON OVARY ) Respiratory: No Immunizations Current: Yes Migraines: No Myocardial Infarction: No Radiation Therapy: No Renal Failure: No Seizures: No Sickle Cell Disease: No Sleep Apnea: No Thyroid Disease: Yes Ulcer: No PNEUMOCCOCAL Vaccine (Year): 3 Menopausal: Yes Past Surgical History Abdominal Surgery: No AICD: No Appendectomy: No Arteriovenous Shunt: No Cardiac Surgery: Yes (X 3 ABLATIONS FOR A-FIB) Cholecystectomy: No Coronary Artery Bypass Graft: No Ear Surgery: No Endocrine Surgery: No Eye Surgery: No Genitourinary Surgery: No Gynecologic Surgery: Yes (hysterectomy at 52y.o. ) Hysterectomy: Yes Insulin Pump: No Joint Replacement: Yes (bilat hips) Neurologic Surgery: No Oral Surgery: No Pacemaker: No Thoracic Surgery: No Other Surgery: Yes Family History Family Myocardial Infarction: Yes Social History Alcohol Use: No Tobacco Use: No (quit at 27 years of age) Substance Use: No Allergies-Medications (Allergen,Severity, Reaction): Coded Allergies: Ceclor (Verified Allergy, Severe, RASH, 10/17/16) Sulfa (Verified Allergy, Severe, RASH, 10/17/16) Cipro (Verified Allergy, Unknown, GI UPSET, 10/17/16) Clonidine (Verified Allergy, Unknown, SKIN IRRITATION, 10/17/16) Uncoded Allergies: latex bandages (Allergy, Mild, SKIN REDNESS, RASH, 05/10/13) Reported Meds & Prescriptions Reported Meds & Active Scripts Active Reported Liothyronine (Liothyronine Sodium) 5 Mcg Tab 5 Mcg PO DAILY Hydrochlorothiazide 12.5 Mg Cap 12.5 Mg PO DAILY Amlodipine (Amlodipine Besylate) 10 Mg Tab 10 Mg PO DAILY Lovastatin 20 Mg Tab 20 Mg PO DAILY Metoprolol Tartrate 50 Mg Tab 50 Mg PO BID Ramipril 10 Mg Cap 10 Mg PO BID Alprazolam 0.25 Mg Tab 0.25 Mg PO Q6H PRN Estradiol 0.5 Mg Tab 0.5 Mg PO WEEKLY Review of Systems Except as stated in HPI: all other systems reviewed are Neg Physical Exam Narrative GENERAL: Anxious elderly female in no acute distress SKIN: Focused skin assessment warm/dry. Various ecchymoses of different ages on the extremities HEAD: Atraumatic. Normocephalic. EYES: No scleral icterus. No injection or drainage. ENT: No nasal bleeding or discharge. Mucous membranes pink and moist. NECK: Supple CARDIOVASCULAR: Tachycardic with heart rate in the 90s to 100s, regular rhythm. No murmur appreciated. RESPIRATORY: No accessory muscle use. Clear to auscultation. Breath sounds equal bilaterally. GASTROINTESTINAL: Abdomen soft, non-tender, nondistended. MUSCULOSKELETAL: 1+ BLE edema NEUROLOGICAL: Awake and alert. Motor grossly within normal limits. Normal speech. PSYCHIATRIC: Appropriate mood and affect; insight and judgment normal. Data Data Last Documented VS Vital Signs Date Time Temp Pulse Resp B/P Pulse Ox O2 Delivery O2 Flow Rate FiO2 10/17/16 22:15 92 24 143/89 99 Room Air 10/17/16 21:59 97.8 Orders Complete Blood Count With Diff (10/17/16 22:12) Basic Metabolic Panel (Bmp) (10/17/16 22:12) B-Type Natriuretic Peptide (10/17/16 22:12) Act Partial Throm Time (Ptt) (10/17/16 22:12) Prothrombin Time / Inr (Pt) (10/17/16 22:12) Magnesium (Mg) (10/17/16 22:12) Troponin I (10/17/16 22:12) Iv Access Insert/Monitor (10/17/16 22:12) Electrocardiogram (10/17/16 22:12) Ecg Monitoring (10/17/16 22:12) Oximetry (10/17/16 22:12) Chest, Single Ap (10/17/16 22:12) Sodium Chloride 0.9% Flush (Ns Flush) (10/17/16 22:15) Urinalysis - C+S If Indicated (10/17/16 23:13) Labs Laboratory Tests Test 10/17/16 10/17/16 22:23 23:40 White Blood Count 18.0 TH/MM3 Red Blood Count 4.38 MIL/MM3 Hemoglobin 14.1 GM/DL Hematocrit 40.9 % Mean Corpuscular Volume 93.4 FL Mean Corpuscular Hemoglobin 32.3 PG Mean Corpuscular Hemoglobin 34.6 % Concent Red Cell Distribution Width 13.0 % Platelet Count 362 TH/MM3 Mean Platelet Volume 7.2 FL Neutrophils (%) (Auto) 71.4 % Lymphocytes (%) (Auto) 17.6 % Monocytes (%) (Auto) 9.8 % Eosinophils (%) (Auto) 0.7 % Basophils (%) (Auto) 0.5 % Neutrophils # (Auto) 12.8 TH/MM3 Lymphocytes # (Auto) 3.2 TH/MM3 Monocytes # (Auto) 1.8 TH/MM3 Eosinophils # (Auto) 0.1 TH/MM3 Basophils # (Auto) 0.1 TH/MM3 CBC Comment AUTO DIFF Differential Total Cells 100 Counted Neutrophils % (Manual) 69 % Lymphocytes % 21 % Monocytes % 7 % Eosinophils % 2 % Neutrophils # (Manual) 12.6 TH/MM3 Metamyelocytes 1 % Differential Comment FINAL DIFF MANUAL Platelet Estimate NORMAL Platelet Morphology Comment NORMAL Red Cell Morphology Comment NORMAL Prothrombin Time 9.5 SEC Prothromb Time International 0.9 RATIO Ratio Activated Partial 24.5 SEC Thromboplast Time Sodium Level 127 MEQ/L Potassium Level 3.5 MEQ/L Chloride Level 91 MEQ/L Carbon Dioxide Level 23.9 MEQ/L Anion Gap 12 MEQ/L Blood Urea Nitrogen 30 MG/DL Creatinine 1.19 MG/DL Estimat Glomerular Filtration 44 ML/MIN Rate Random Glucose 170 MG/DL Calcium Level 9.6 MG/DL Magnesium Level 2.1 MG/DL Troponin I LESS THAN 0.02 NG/ML B-Type Natriuretic Peptide 117 PG/ML Urine Color LIGHT-YELLOW Urine Turbidity CLEAR Urine pH 7.0 Urine Specific Monette 1.005 Urine Protein NEG mg/dL Urine Glucose (UA) NEG mg/dL Urine Ketones NEG mg/dL Urine Occult Blood NEG Urine Nitrite NEG Urine Bilirubin NEG Urine Urobilinogen LESS THAN 2.0 MG/DL Urine Leukocyte Esterase NEG Urine RBC LESS THAN 1 /hpf Urine WBC 1 /hpf Urine Squamous Epithelial 1 /hpf Cells Urine Bacteria RARE /hpf Microscopic Urinalysis Comment CULT NOT INDICATED MDM Medical Decision Making Medical Screen Exam Complete: Yes Emergency Medical Condition: Yes Medical Record Reviewed: Yes Differential Diagnosis 81-year-old female with history of A. fib, HTN, HLD here with complaint of 3 weeks of intermittent shortness of breath and palpitations worse this evening. Differential includes arrhythmia, electrolyte abnormality, ACS, heart failure, symptomatic anemia. No infectious symptoms to suggest pneumonia. Narrative Course Patient placed on monitor, IV established and blood obtained. Twelve-lead EKG shows sinus rhythm without notable ST abnormalities, normal intervals. Portable chest x-ray obtained that by my read shows no acute abnormalities.. CBC, BMP, BNP, troponin, magnesium, coags notable for WBC 18.0. Patient does not have any infectious symptoms but urinalysis was checked given her age and this was negative. Remainder of her laboratory workup is unremarkable other than baseline hyponatremia. Patient is not dyspneic on exam. My suspicion is that her symptoms might be arrhythmogenic in nature but she has not had any arrhythmia on telemetry while here. Patient will be discharged home with outpatient cardiology follow-up. She sees Dr. Rincon. Diagnosis Primary Impression: Palpitations Additional Impression: Shortness of breath Referrals: Kin Rincon MD 2 days Infantryman 2 days Additional Instructions: Call cardiology on Wednesday morning for outpatient follow-up. Consider Holter monitor if symptoms persist. Med/Other Pt SpecificInfo: No Change to Meds Disposition: 01 DISCHARGE HOME Condition: Stable Lorena Romero MD Oct 17, 2016 22:21
[2016-10-17 22:40] LABS: AUTOMATED NEUTROPHIL # 12.8 TH/MM3 (1.8-7.7); BASOPHIL # 0.1 TH/MM3 (0-0.2); BASOPHIL % 0.5 % (0.0-2.0); EOSINOPHIL # 0.1 TH/MM3 (0-0.4); EOSINOPHIL % 0.7 % (0.0-4.0); HEMATOCRIT 40.9 % (35.0-46.0); LYMPH % 17.6 % (9.0-44.0); LYMPHOCYTE # 3.2 TH/MM3 (1.0-4.8); MEAN CELL VOLUME 93.4 FL (80.0-100.0); MEAN CORPUSCULAR HEMOGLOBIN 32.3 PG (27.0-34.0); MEAN CORPUSCULAR HGB CONC 34.6 % (32.0-36.0); MONO % 9.8 % (0.0-8.0); NEUT % 71.4 % (16.0-70.0); PLATELET COUNT 362 TH/MM3 (150-450); RED BLOOD COUNT 4.38 MIL/MM3 (4.00-5.30)
[2016-10-17 22:43] LABS: APTT (PATIENT) 24.5 SEC (24.3-30.1); INTERNATIONAL NORMALIZED RATIO 0.9 RATIO; PROTHROMBIN TIME - PATIENT 9.5 SEC (9.8-11.6)
[2016-10-17 22:46] LABS: HEMO FLAGS AUTO DIFF
[2016-10-17 23:00] LABS: ANION GAP 12 MEQ/L (5-15); BICARBONATE 23.9 MEQ/L (21.0-32.0); BLOOD UREA NITROGEN 30 MG/DL (7-18); CHLORIDE 91 MEQ/L (98-107); GLOMERULAR FILTRATION RATE 44 ML/MIN (>89); MAGNESIUM 2.1 MG/DL (1.5-2.5); POTASSIUM 3.5 MEQ/L (3.5-5.1); SODIUM (NA) 127 MEQ/L (136-145)
--- NOTE | 2016-10-17 23:06 | RADRPT ---
EXAM DATE/TIME: 10/17/2016 22:36 [facility] COMPARISON: CHEST SINGLE AP, September 03, 2016, 2:27. INDICATIONS : Short of breath. MEDICAL HISTORY : None. SURGICAL HISTORY : None. ENCOUNTER: Initial ACUITY: 1 day PAIN SCORE: 7/10 LOCATION: Bilateral chest FINDINGS: A single view of the chest demonstrates the lungs to be symmetrically aerated without evidence of mas s, infiltrate or effusion. The cardiomediastinal contours are unremarkable. Osseous structures are intact. CONCLUSION: The lungs are clear. Davian Ma MD on October 17, 2016 at 23:04 Board Certified Radiologist. This report was verified electronically.
[2016-10-17 23:25] LABS: EOSINOPHILS 2 % (0-4); METAMYELOCYTES 1 % (0-1); NEUTROPHIL # MANUAL DIFF 12.6 TH/MM3 (1.8-7.7); PLATELET ESTIMATE SMEAR NORMAL (NORMAL); PLATELET MORPHOLOGY NORMAL (NORMAL); POLYS (SEG NEUTROPHILS) 69 % (16-70); SCAN/DIFF FINAL DIFF MANUAL; WBC DIFF SAMPLE 100
[2016-10-17 23:53] LABS: BACTERIA, URINE RARE /hpf; BLOOD, URINE NEG (NEG); COMMENT (UR) CULT NOT INDICATED; CULTURE IF INDICATED CULT NOT INDICATED; GLUCOSE,URINE NEG (NEG); KETONE, URINE NEG (NEG); NITRITE,URINE NEG (NEG); SQUAMOUS EPITHELIAL CELL URINE 1 /hpf (0-5); URINE COLOR LIGHT-YELLOW (YELLW/STRAW)
--- NOTE | 2016-10-18 21:04 | EKG ---
Date Performed: 10/17/2016 Time Performed: 22:17:04 PTAGE: 81 years EKG: Sinus rhythm WITH OCCASIONAL SUPRAVENTRICULAR PREMATURE COMPLEXES NONSPECIFIC T-WAVE ABNORMALITY BORDERLINE ECG PREVIOUS TRACING : 09/03/2016 03.36 DOCTOR: Kin Rincon Interpretating Date/Time 10/18/2016 21:02:43
== END 2016-10-18 00:50 | disposition home or self-care (01) ==
LOC: NEPE 21:55
DX: R00.2 Palpitations (principal); R06.02 Shortness of breath; R22.43 Localized swelling, mass and lump, lower limb, bilateral; D72.829 Elevated white blood cell count, unspecified; R94.31 Abnormal electrocardiogram [ECG] [EKG]; I10 Essential (primary) hypertension; I48.91 Unspecified atrial fibrillation; E07.9 Disorder of thyroid, unspecified; E78.5 Hyperlipidemia, unspecified; Z86.79 Personal history of other diseases of the circulatory system; Z87.39 Personal history of other diseases of the musculoskeletal system and connective tissue; Z86.59 Personal history of other mental and behavioral disorders; Z87.42 Personal history of other diseases of the female genital tract; Z87.891 Personal history of nicotine dependence
CPT/HCPCS: 71010; 80048; 81001; 83735; 83880; 84484; 85007; 85027; 85610; 85730; 93005

== ENCOUNTER 2017-01-26 18:23 | Inpatient (IN) | payer MEDICARE, BC ==
[~2017-01-26] VITALS: Ht 154.9 cm; Wt 69.0 kg
[~2017-01-26 18:23] MED LIST changes: -ASPI81CH7 CHEW; -AUGM875T PO
[2017-01-26 18:28] VITALS: BP 166/83; PULSE 150; RESP 18; O2SAT 97
[2017-01-26] MEDS ORDERED: DILTIAZEM HCL 25 MG/5 ML VIAL IV PUSH ONE (18:30)
[2017-01-26] MEDS ORDERED: SODIUM CHLORIDE 0.9% FLUSH 10 ML FLUSH IVF PRN (18:30)
[2017-01-26] MEDS ORDERED: CENTCHW4 CHEW (18:35)
[2017-01-26] MEDS ORDERED: HYDR25TA5 PO (18:35)
[2017-01-26] MEDS ORDERED: SENN1TAB PO (18:35)
[2017-01-26] MEDS ORDERED: VITA100036 PO (18:35)
[2017-01-26 18:36] VITALS: BP 184/83; PULSE 139; RESP 28; TEMP 97.9; O2SAT 98
[2017-01-26 18:44] VITALS: PULSE 123
--- NOTE | 2017-01-26 18:52 | PD ---
HPI . palpitations Chief Complaint: Chest Pain Time Seen by Provider: 18:29 Travel History International Travel<30 days: No Contact w/Intl Traveler<30days: No Traveled to known affect area: No History of Present Illness HPI 81 year old female with a history of A-fib and previous cardiac ablation presents complaining of palpitations. Onset was approximately 2 hours prior to arrival. She was tachycardic (~150 bpm) at arrival and tachypneic. Patient reports she had 3 ablations 3 years ago and has been out of A-fib since then. She has been off of blood thinners for a year and a half. She reports some difficulty breathing and speaking but says it is improving. Reports associated fatigue. No noted modifying factors. PFSH Past Medical History Hx Anticoagulant Therapy: No Arthritis: Yes (LUMBAR AREA) Asthma: No Atrial Fibrillation: Yes Autoimmune Disease: No Blood Disorders: No Anxiety: Yes (takes alprazolam) Depression: No Heart Rhythm Problems: Yes Cancer: No Cardiac Catheterization: No Cardiovascular Problems: Yes High Cholesterol: Yes Chemotherapy: No Chest Pain: No Congestive Heart Failure: No COPD: No Cerebrovascular Accident: No Diabetes: No Diminished Hearing: No Endocrine: Yes Gastrointestinal Disorders: No GERD: No Glaucoma: No Genitourinary: Yes (URINARY TRACT INFECTION IN 2007) Headaches: No Hepatitis: No Hiatal Hernia: No Heparin Induced Thrombocytopen: No Hypertension: Yes Immune Disorder: No Implanted Vascular Access Dvce: Yes Kidney Stones: No Musculoskeletal: Yes (DIFFICULTY WALKING R/T HIP SURGERIES) Neurologic: No Psychiatric: Yes Reproductive: Yes (CYSTS ON OVARY ) Respiratory: No Immunizations Current: Yes Migraines: No Myocardial Infarction: No Radiation Therapy: No Renal Failure: No Seizures: No Sickle Cell Disease: No Sleep Apnea: No Thyroid Disease: Yes Ulcer: No PNEUMOCCOCAL Vaccine (Year): 3 Menopausal: Yes Past Surgical History Abdominal Surgery: No AICD: No Appendectomy: No Arteriovenous Shunt: No Cardiac Surgery: Yes (X 3 ABLATIONS FOR A-FIB) Cholecystectomy: No Coronary Artery Bypass Graft: No Ear Surgery: No Endocrine Surgery: No Eye Surgery: No Genitourinary Surgery: No Gynecologic Surgery: Yes (hysterectomy at 52y.o. ) Hysterectomy: Yes Insulin Pump: No Joint Replacement: Yes (bilat hips) Neurologic Surgery: No Oral Surgery: No Pacemaker: No Thoracic Surgery: No Other Surgery: Yes Family History Family Myocardial Infarction: Yes Social History Alcohol Use: No Tobacco Use: No (quit at 27 years of age) Substance Use: No Allergies-Medications (Allergen,Severity, Reaction): Coded Allergies: Ceclor (Verified Allergy, Severe, RASH, 10/17/16) Sulfa (Verified Allergy, Severe, RASH, 10/17/16) Cipro (Verified Allergy, Unknown, GI UPSET, 10/17/16) Clonidine (Verified Allergy, Unknown, SKIN IRRITATION, 10/17/16) Uncoded Allergies: latex bandages (Allergy, Mild, SKIN REDNESS, RASH, 05/10/13) Reported Meds & Prescriptions Reported Meds & Active Scripts Active Reported Senna Plus 8.6-50 mg (Sennosides-Docusate Sodium) 1 Tab Tab 1 Tab PO DAILY Centrum (Multiple Vitamins W/ Minerals) 1 Chew 1 Tab CHEW DAILY Vitamin D3 (Cholecalciferol) 1,000 Unit Cap 1,000 Units PO DAILY Hydrochlorothiazide 25 Mg Tab 25 Mg PO DAILY Liothyronine (Liothyronine Sodium) 5 Mcg Tab 5 Mcg PO DAILY Amlodipine (Amlodipine Besylate) 10 Mg Tab 10 Mg PO DAILY Lovastatin 20 Mg Tab 20 Mg PO DAILY Metoprolol Tartrate 50 Mg Tab 50 Mg PO BID Ramipril 10 Mg Cap 10 Mg PO BID Alprazolam 0.25 Mg Tab 0.25 Mg PO Q6H PRN Estradiol 0.5 Mg Tab 0.5 Mg PO WEEKLY Review of Systems General / Constitutional: Positive: Other (fatigue) Cardiovascular: Positive: Palpitations, Irregular Rhythm, Tachycardia, No: Chest Pain or Discomfort Respiratory: No: Cough, Shortness of Breath Physical Exam Narrative GENERAL: awake, alert, appears to be in distress. SKIN: Warm and dry. Some scratches on her LEs (from her cat) HEAD: Atraumatic. Normocephalic. EYES: Pupils equal and round. Extraocular eye movements intact. ENT: No nasal bleeding or discharge. Mucous membranes pink and moist. NECK: Trachea midline. Neck supple. CARDIOVASCULAR: Tachycardic, irregular rhythm. No murmurs. RESPIRATORY: Tachypneic. No accessory muscle use. Lungs clear. GASTROINTESTINAL: Abdomen soft, non-tender, nondistended. MUSCULOSKELETAL: No obvious deformities. Bilateral lower extremity edema to mid-cool. NEUROLOGICAL: Awake and alert. No obvious cranial nerve deficits. Motor grossly within normal limits. Normal speech. PSYCHIATRIC: Appropriate mood and affect; insight and judgment normal. Data Data Last Documented VS Vital Signs Date Time Temp Pulse Resp B/P Pulse Ox O2 Delivery O2 Flow Rate FiO2 01/26/17 19:10 132 20 148/74 99 01/26/17 18:36 97.9 Room Air Orders Ecg Monitoring (01/26/17 18:29) Blood Pressure (01/26/17 18:29) Iv Access Insert/Monitor (01/26/17 18:29) Oximetry (01/26/17 18:29) Vital Signs (01/26/17 18:29) Diltiazem Inj (Cardizem Inj) (01/26/17 18:30) Sodium Chloride 0.9% Flush (Ns Flush) (01/26/17 18:30) Basic Metabolic Panel (Bmp) (01/26/17 18:33) Ckmb (Isoenzyme) Profile (01/26/17 18:33) Complete Blood Count With Diff (01/26/17 18:33) Magnesium (Mg) (01/26/17 18:33) Prothrombin Time / Inr (Pt) (01/26/17 18:33) Troponin I (01/26/17 18:33) Chest, Single Ap (01/26/17 18:33) Diltiazem Inj (Cardizem Inj) (01/26/17 19:15) Diltiazem Inj (Cardizem Inj) (01/26/17 19:30) Electrocardiogram (01/26/17 18:30) Potassium Chloride (Kcl) (01/26/17 20:15) Labs Laboratory Tests Test 01/26/17 18:40 White Blood Count 13.3 TH/MM3 Red Blood Count 4.23 MIL/MM3 Hemoglobin 13.7 GM/DL Hematocrit 39.7 % Mean Corpuscular Volume 94.0 FL Mean Corpuscular Hemoglobin 32.4 PG Mean Corpuscular Hemoglobin 34.5 % Concent Red Cell Distribution Width 13.0 % Platelet Count 362 TH/MM3 Mean Platelet Volume 7.8 FL Neutrophils (%) (Auto) 52.6 % Lymphocytes (%) (Auto) 36.2 % Monocytes (%) (Auto) 9.5 % Eosinophils (%) (Auto) 1.3 % Basophils (%) (Auto) 0.4 % Neutrophils # (Auto) 7.0 TH/MM3 Lymphocytes # (Auto) 4.8 TH/MM3 Monocytes # (Auto) 1.3 TH/MM3 Eosinophils # (Auto) 0.2 TH/MM3 Basophils # (Auto) 0.1 TH/MM3 CBC Comment DIFF FINAL Differential Comment Prothrombin Time 9.6 SEC Prothromb Time International 0.9 RATIO Ratio Sodium Level 132 MEQ/L Potassium Level 2.6 MEQ/L Chloride Level 97 MEQ/L Carbon Dioxide Level 20.0 MEQ/L Anion Gap 15 MEQ/L Blood Urea Nitrogen 32 MG/DL Creatinine 1.35 MG/DL Estimat Glomerular Filtration 38 ML/MIN Rate Random Glucose 185 MG/DL Calcium Level 9.3 MG/DL Magnesium Level 2.2 MG/DL Total Creatine Kinase 54 U/L Troponin I LESS THAN 0.02 NG/ML MDM Medical Decision Making Medical Screen Exam Complete: Yes Emergency Medical Condition: Yes Differential Diagnosis Differentials for chest pain/palpitations include MO, unstable angina, atrial fibrillation, SVT. Narrative Course Patient presented with atrial fibrillation with RVR. She has a history of a-fib and 3 cardiac ablations. Has been out of A-fib for 3 years. Does not currently take any blood thinners. IV access, 12 lead EKG, and labs were obtained. Patient was given IV diltiazem. She did not slow following the 1st bolus of diltiazem so a 2nd bolus and a drip were ordered. Last Impressions Chest X-Ray 01/26/17 9913 Signed Impressions: Service Date/Time: Thursday, January 26, 2017 18:44 - CONCLUSION: 1. No acute intrathoracic process. 2. Mild chronic interstitial changes at the bases. Davian Montoya Jr., MD The chest x-ray was independently viewed by me. BMP Diagram 01/26/17 18:40 Patient was given oral potassium replacement. Critical Care Narrative Aggregate critical care time was 45 minutes. Time to perform other separately billable procedures was not included in the critical care time. My time did not include minutes spent treating any other patients simultaneously or on activities that did not directly contribute to the patient's treatment. The services I provided to this patient were to treat and/or prevent clinically significant deterioration due to A. fib with RVR I provided critical care services requiring my management, as noted below: Chart data review, documentation time, medication orders and management, vital sign assessments/reviewing monitor data, ordering and reviewing lab tests, ordering and interpreting/reviewing x-rays and diagnostic studies, care of the patient and discussion of the patient with the admitting physicians Physician Communication Physician Communication [facility] paged at 2024 Diagnosis Primary Impression: Atrial fibrillation with RVR Admitting Information Admitting Physician Requests: Admit Condition: Stable Oliva Haynes MD Jan 26, 2017 18:52
--- NOTE | 2017-01-26 19:05 | RADRPT ---
EXAM DATE/TIME: 01/26/2017 18:44 [place] COMPARISON: CHEST SINGLE AP, October 17, 2016, 22:36. INDICATIONS : Chest palpitations that started today. MEDICAL HISTORY : Hypertension. Hypercholesterolemia. A-fib. SURGICAL HISTORY : None. ENCOUNTER: Initial ACUITY: 1 day PAIN SCORE: 0/10 LOCATION: Bilateral chest FINDINGS: A single view of the chest demonstrates the lungs to be symmetrically aerated without evidence of mas s, infiltrate or effusion. Mild chronic interstitial changes at the bases are unchanged. The cardiome diastinal contours are unremarkable. Osseous structures are intact. CONCLUSION: 1. No acute intrathoracic process. 2. Mild chronic interstitial changes at the bases. Davian Montoya Jr., MD on January 26, 2017 at 19:02 Board Certified Radiologist. This report was verified electronically.
[2017-01-26 19:10] VITALS: BP 148/74; PULSE 132; RESP 20; O2SAT 99
[2017-01-26] MEDS ORDERED: DILTIAZEM INJ 125 MG in SODIUM CHLORIDE 0.9% INJ 100 ML IV SCH (19:15)
[2017-01-26] MEDS ORDERED: DILTIAZEM HCL 50 MG/10 ML VIAL IV PUSH ONE (19:30)
[2017-01-26 19:56] LABS: BASOPHIL # 0.1 TH/MM3 (0-0.2); BASOPHIL % 0.4 % (0.0-2.0); EOSINOPHIL # 0.2 TH/MM3 (0-0.4); EOSINOPHIL % 1.3 % (0.0-4.0); HEMATOCRIT 39.7 % (35.0-46.0); HEMO FLAGS DIFF FINAL; LYMPH % 36.2 % (9.0-44.0); LYMPHOCYTE # 4.8 TH/MM3 (1.0-4.8); MEAN CORPUSCULAR HEMOGLOBIN 32.4 PG (27.0-34.0); MEAN CORPUSCULAR HGB CONC 34.5 % (32.0-36.0); MONO % 9.5 % (0.0-8.0); NEUT % 52.6 % (16.0-70.0); PLATELET COUNT 362 TH/MM3 (150-450); RED BLOOD COUNT 4.23 MIL/MM3 (4.00-5.30); WHITE BLOOD COUNT 13.3 TH/MM3 (4.0-11.0)
[2017-01-26 20:04] LABS: INTERNATIONAL NORMALIZED RATIO 0.9 RATIO; PROTHROMBIN TIME - PATIENT 9.6 SEC (9.8-11.6)
[2017-01-26 20:10] LABS: ANION GAP 15 MEQ/L (5-15); BLOOD UREA NITROGEN 32 MG/DL (7-18); CHLORIDE 97 MEQ/L (98-107); GLOMERULAR FILTRATION RATE 38 ML/MIN (>89); MAGNESIUM 2.2 MG/DL (1.5-2.5); SODIUM (NA) 132 MEQ/L (136-145)
[2017-01-26 20:12] LABS: POTASSIUM 2.6 MEQ/L (3.5-5.1)
[2017-01-26] MEDS ORDERED: POTASSIUM CHLORIDE 20 MEQ CONTROLLED RELEASE TAB PO ONE (20:15)
[2017-01-26 20:18] LABS: CREATINE KINASE 54 U/L (26-192)
[2017-01-26] MEDS ORDERED: SODIUM CHLORIDE 0.9% FLUSH 10 ML FLUSH IV FLUSH PRN (21:30)
[2017-01-26] MEDS ORDERED: ACETAMINOPHEN 325 MG TAB PO PRN (21:30)
[2017-01-26] MEDS ORDERED: NALOXONE HCL 0.4 MG/ML AMP IV PRN (21:30)
[2017-01-26] MEDS ORDERED: SENNOSIDES 8.6 MG TAB PO PRN (21:30)
[2017-01-26] MEDS ORDERED: POTASSIUM CHLOR 20 MEQ PREMIX 100 ML IV ONE (21:30)
[2017-01-26] MEDS ORDERED: ONDANSETRON HCL 4 MG/2 ML VIAL IVP PRN (21:30)
--- NOTE | 2017-01-26 21:36 | EKG ---
Date Performed: 01/26/2017 Time Performed: 18:30:01 PTAGE: 81 years EKG: ATRIAL FIBRILLATION WITH RAPID VENTRICULAR RESPONSE NONSPECIFIC ST & T-WAVE ABNORMALITY ABN ORMAL ECG Compared to the PREVIOUS TRACING Sinus rhythm no longer present DOCTOR: Luciana Pollard Interpretating Date/Time 01/26/2017 21:35:45
[2017-01-26 22:15] VITALS: BP 136/68; PULSE 67; RESP 16; O2SAT 97
[2017-01-26] MEDS ORDERED: HEPARIN SODIUM - IV 10,000 UNITS/10 ML VIAL IV ONE (22:30)
[2017-01-26] MEDS ORDERED: HEPARIN-D5W INJ 250 ML IV SCH (22:30)
[2017-01-26] MEDS ORDERED: POTASSIUM CHLORIDE 25 MEQ EFFERVESCENT TAB PO ONE (22:45)
--- NOTE | 2017-01-26 23:52 | HHI.HP ---
HPI Service [facility] Primary Care Physician Champ Reyes MD Admission Diagnosis A-fib with RVR Diagnoses: (1) Atrial fibrillation with RVR (2) HTN (hypertension) (3) Hypokalemia (4) Acute on chronic renal insufficiency Chief Complaint: Palpitations, heart rate of 140 Travel History International Travel<30 Days: No Contact w/Intl Traveler <30 Da: No Traveled to Known Affected Are: No History of Present Illness Written by Judie Asif, acting as scribe for Dr. Mendoza on 01/26/17 at 23:55. Watching TV after an argument with her . She started to feel palpitations: severe heart pounding and racing. She took her blood pressure and noted heart rate at 140. She called the pasteurizer helper and he said to come to the hospital. She then called PCP Dr. Reyes and he also advised her to come to the hospital. She was dizzy while taking bp all at one time and this has resolved since spacing out her bp medications throughout the day. She's had no atrial fibrillation with RVR over the past 3 1/2 years since her last ablation. She's been off blood thinners for the past 1 1/2 years. Denies fevers, nausea, vomiting, diarrhea, black or red stool, hematuria, dysuria, chest pain, or shortness of breath. Review of Systems Except as stated in HPI: all other systems reviewed are Neg Past Family Social History Past Medical History Hypertension Atrial fibrillation with 3 ablations Chronic Kidney Disease Hypothyroidism Basal cell on legs Denies diabetes mellitus, CAD, emphysema, asthma, liver problems, DVT, CVA, seizures, cancers . Past Surgical History Ablations x 3 Hysterectomy at age 52 y/o Biopsy of leg lesions Reported Medications Reported Meds & Active Scripts Active Reported Senna Plus 8.6-50 mg (Sennosides-Docusate Sodium) 1 Tab Tab 1 Tab PO DAILY Centrum (Multiple Vitamins W/ Minerals) 1 Chew 1 Tab CHEW DAILY Vitamin D3 (Cholecalciferol) 1,000 Unit Cap 1,000 Units PO DAILY Hydrochlorothiazide 25 Mg Tab 25 Mg PO DAILY Liothyronine (Liothyronine Sodium) 5 Mcg Tab 5 Mcg PO DAILY Amlodipine (Amlodipine Besylate) 10 Mg Tab 10 Mg PO DAILY Lovastatin 20 Mg Tab 20 Mg PO DAILY Metoprolol Tartrate 50 Mg Tab 50 Mg PO BID Ramipril 10 Mg Cap 10 Mg PO BID Alprazolam 0.25 Mg Tab 0.25 Mg PO Q6H PRN Estradiol 0.5 Mg Tab 0.5 Mg PO WEEKLY . Allergies: Coded Allergies: Ceclor (Verified Allergy, Severe, RASH, 10/17/16) Sulfa (Verified Allergy, Severe, RASH, 10/17/16) Cipro (Verified Allergy, Unknown, GI UPSET, 10/17/16) Clonidine (Verified Allergy, Unknown, SKIN IRRITATION, 10/17/16) Uncoded Allergies: latex bandages (Allergy, Mild, SKIN REDNESS, RASH, 05/10/13) Active Ordered Medications Current Medications Diltiazem HCl (Cardizem Inj) 18 mg BOLUS ONCE IV PUSH Last administered on 18:37; Start 01/26/17 at 18:30; Stop 01/26/17 at 18:32; Status DC Sodium Chloride 2 ml 2 ml UNSCH PRN IVF FLUSH AFTER USING IV ACCESS; Start 06/04 at 18:30 Diltiazem HCl/ Sodium Chloride (Cardizem Inj/NS Inj) 125 ml @ 0 mls/hr TITRATE IV Last administered on 01/26/17 19:43; Start 01/26/17 at 19:15 Diltiazem HCl (Cardizem Inj) 24 mg BOLUS ONCE IV PUSH Last administered on 19:21; Start 01/26/17 at 19:30; Stop 01/26/17 at 19:31; Status DC Potassium Chloride (KCl) 40 meq ONCE ONCE PO Last administered on 01/26/17 20 :37; Start 01/26/17 at 20:15; Stop 01/26/17 at 20:16; Status DC Sodium Chloride (NS Flush) 2 ml UNSCH PRN IV FLUSH FLUSH AFTER USING IV ACCESS ; Start 01/26/17 at 21:30 Sodium Chloride (NS Flush) 2 ml BID IV FLUSH ; Start 01/27/17 at 09:00 Acetaminophen (Tylenol) 650 mg Q4H PRN PO TEMP > 100.4; Start 01/26/17 at 21:30 Ondansetron HCl (Zofran Inj) 4 mg Q6H PRN IVP NAUSEA OR VOMITING; Start at 21:30 Naloxone HCl (Narcan Inj) 0.4 mg UNSCH PRN IV SEE LABEL COMMENTS; Start at 21:30 Sennosides 17.2 mg 17.2 mg Q12H PRN PO MODERATE - SEVERE CONSTIPATION; Start at 21:30 Potassium Chloride (KCl 20 Meq Premix Inj) 100 ml @ 50 mls/hr ONCE ONCE IV ; Start 01/26/17 at 21:30; Stop 01/26/17 at 22:38; Status DC Heparin Sodium (Porcine) (Heparin Inj) 4,000 units ONCE ONCE IV ; Start at 22:30; Stop 01/26/17 at 22:50; Status DC Heparin Sodium (Porcine) (Heparin Inj) 5,000 units UNSCH PRN IV APTT LESS THAN 25; Start 01/27/17 at 04:30; Stop 01/27/17 at 04:30; Status DC Heparin Sodium (Porcine) 2500 units 2,500 units UNSCH PRN IV APTT 25 TO 39; Start 01/27/17 at 04:30; Stop 01/27/17 at 04:30; Status DC Heparin Sodium/ Dextrose (Heparin-D5W Inj) 250 ml @ 0 mls/hr TITRATE IV ; Start 01/26/17 at 22:30; Stop 01/26/17 at 22:50; Status DC Potassium Bicarb/ Potassium Chloride (K-Lyte Cl Eff) 50 meq ONCE ONCE PO Last administered on 01/26/17t 23:12; Start 01/26/17 at 22:45; Stop 01/26/17 at 22:46; Status DC . Family History Diabetes and heart disease in the family . Social History Tobacco: denies Alcohol: denies . Physical Exam Vital Signs Vital Signs Date Time Temp Pulse Resp B/P Pulse Ox O2 Delivery O2 Flow Rate FiO2 01/26/17 22:15 67 16 136/68 97 Room Air 01/26/17 19:10 132 20 148/74 99 01/26/17 18:44 123 01/26/17 18:36 97.9 139 28 184/83 98 Room Air 01/26/17 18:28 150 18 166/83 97 Physical Exam GENERAL: This is a well-nourished, well-developed patient, in no apparent distress. SKIN: No rashes. Cool and dry. Scattered ecchymosis noted on thin skin of extremities. HEAD: Atraumatic. Normocephalic. EYES: No scleral icterus. No injection or drainage. ENT: Nose without bleeding, purulent drainage. NECK: Trachea midline. No JVD or lymphadenopathy. CARDIOVASCULAR: Regular rate and rhythm without murmurs, gallops, or rubs. RESPIRATORY: Clear to auscultation. Breath sounds equal bilaterally. No wheezes , rales, or rhonchi. GASTROINTESTINAL: Abdomen soft, non-tender, nondistended. No guarding. MUSCULOSKELETAL: Extremities without clubbing, cyanosis, or edema. No calf tenderness. NEUROLOGICAL: Awake and alert. Motor and sensory grossly within normal limits. Normal speech. . Laboratory Laboratory Tests Test 01/26/17 18:40 White Blood Count 13.3 Red Blood Count 4.23 Hemoglobin 13.7 Hematocrit 39.7 Mean Corpuscular Volume 94.0 Mean Corpuscular Hemoglobin 32.4 Mean Corpuscular Hemoglobin 34.5 Concent Red Cell Distribution Width 13.0 Platelet Count 362 Mean Platelet Volume 7.8 Neutrophils (%) (Auto) 52.6 Lymphocytes (%) (Auto) 36.2 Monocytes (%) (Auto) 9.5 Eosinophils (%) (Auto) 1.3 Basophils (%) (Auto) 0.4 Neutrophils # (Auto) 7.0 Lymphocytes # (Auto) 4.8 Monocytes # (Auto) 1.3 Eosinophils # (Auto) 0.2 Basophils # (Auto) 0.1 CBC Comment DIFF FINAL Differential Comment Prothrombin Time 9.6 Prothromb Time International 0.9 Ratio Sodium Level 132 Potassium Level 2.6 Chloride Level 97 Carbon Dioxide Level 20.0 Anion Gap 15 Blood Urea Nitrogen 32 Creatinine 1.35 Estimat Glomerular Filtration 38 Rate Random Glucose 185 Calcium Level 9.3 Magnesium Level 2.2 Total Creatine Kinase 54 Troponin I LESS THAN 0.02 Result Diagram: 01/26/17 1840 01/26/17 1840 Imaging Last Impressions Chest X-Ray 01/26/17 1833 Signed Impressions: Service Date/Time: Thursday, January 26, 2017 18:44 - CONCLUSION: 1. No acute intrathoracic process. 2. Mild chronic interstitial changes at the bases. Davian Montoya Jr., MD . Assessment and Plan Problem List: (1) Atrial fibrillation with RVR ICD Code: I48.91 Status: Acute (2) HTN (hypertension) ICD Code: I10 Status: Acute (3) Hypokalemia ICD Code: E87.6 Status: Acute (4) Acute on chronic renal insufficiency ICD Code: N28.9 Status: Acute Assessment and Plan Mrs. Ferreira is a 81 y/o female with a history of atrial fibrillation s/p ablation x 3 who presented to the hospital for evaluation of palpitations. She was found to be in afib with RVR and has been free from afib with RVR for 3 1/2 years since most recent ablation. Atrial fibrillation with RVR - Cardizem drip - consult cardiology to re-evaluate need for anticoagulation - appreciate assistance - discussed rationale for patient regarding anticoagulation - continuous cardiac telemetry to monitor cardiac rate and rhythm - monitor vital signs q4h - closely monitor I and Os for fluid overload Hypertension - Make sure blood pressure medications are scheduled at different times - resume home medications - monitor trends in blood pressure and adjust treatment as indicated Hypokalemia - Potassium 2.6 on admission - replaced potassium - recheck bmp in a.m. and follow results in potassium level Acute on chronic renal insufficiency - BUN 32, creatinine 1.35, eGFR - 38 - recheck bmp in a.m. and follow trends in renal indices - avoid nephrotoxins DVT prophylaxis - Lovenox 30 mg subq q24h Discussed Condition With ER physician, RN, and patient . Physician Certification 2 Midnight Certification Type: Admission for Inpatient Services Order for Inpatient Services The services are ordered in accordance with Medicare regulations or non- Medicare payer requirements, as applicable. In the case of services not specified as inpatient-only, they are appropriately provided as inpatient services in accordance with the 2-midnight benchmark. Estimated LOS (days): 3 days is the estimated time the patient will need to remain in the hospital, assuming treatment plan goals are met and no additional complications. Post-Hospital Plan: Home Judie Asif Jan 26, 2017 23:52
[2017-01-27] VITALS (22 sets, daily range): BP systolic 117–148; BP diastolic 54–86; PULSE 35–88; RESP 16–20; TEMP 97.6–98.5; O2SAT 96–100
[2017-01-27] MEDS: ENOXAPARIN SODIUM 30 MG/0.3 ML SYRINGE SQ SCH ×2 (01:37→23:54)
[2017-01-27] MEDS ORDERED: HEPARIN SODIUM - IV 10,000 UNITS/10 ML VIAL IV PRN ×2 (04:30)
[2017-01-27] MEDS ORDERED: ALPRAZolam 0.25 MG TAB PO PRN (08:45)
[2017-01-27] MEDS ORDERED: METOPROLOL TARTRATE 50 MG TAB PO SCH (09:00)
[2017-01-27] MEDS ORDERED: RAMIPRIL 5 MG CAP PO SCH (09:00)
[2017-01-27] MEDS ORDERED: HYDROCHLOROTHIAZIDE 25 MG TAB PO SCH (09:00)
[2017-01-27] MEDS: LIOTHYRONINE SODIUM 5 MCG TAB PO SCH (10:01)
--- NOTE | 2017-01-27 10:13 | HHI.PR ---
Subjective Remarks Follow up for Afib with RVR, hypertension. Patient is currently doing well on Cardizem drip. She is in sinus rhythm. No fever, chills. No chest pain. Objective Vitals Vital Signs Date Time Temp Pulse Resp B/P Pulse Ox O2 Delivery O2 Flow Rate FiO2 01/27/17 08:03 97.7 68 20 135/54 100 01/27/17 07:00 67 01/27/17 06:00 64 01/27/17 05:35 97.8 74 16 148/64 98 01/27/17 05:35 74 01/27/17 05:14 62 16 132/76 100 Room Air 01/27/17 00:27 78 16 136/86 100 Room Air 01/26/17 22:15 67 16 136/68 97 Room Air 01/26/17 19:10 132 20 148/74 99 01/26/17 18:44 123 01/26/17 18:36 97.9 139 28 184/83 98 Room Air 01/26/17 18:28 150 18 166/83 97 I/O 01/26/17 01/26/17 01/26/17 01/27/17 01/27/17 01/27/17 07:00 15:00 23:00 07:00 15:00 23:00 Intake Total 292 ml Balance 292 ml Intake Oral 240 ml IV Total 52 ml # Voids 1 # Bowel Movements 1 Result Diagram: 01/26/17 18401/[id number]/171839 Imaging Last Impressions Chest X-Ray 01/26/17 1833 Signed Impressions: Service Date/Time: Thursday, January 26, 2017 18:44 - CONCLUSION: 1. No acute intrathoracic process. 2. Mild chronic interstitial changes at the bases. Davian Montoya Jr., MD Objective Remarks GENERAL: Alert, Oriented x 3, NAD. SKIN: Warm and dry. HEAD: Normocephalic. EYES: No scleral icterus. No injection or drainage. NECK: Supple, trachea midline. No JVD or lymphadenopathy. CARDIOVASCULAR: Regular rate and rhythm without murmurs, gallops, or rubs. RESPIRATORY: Breath sounds equal bilaterally. No accessory muscle use. GASTROINTESTINAL: Abdomen soft, non-tender, nondistended. MUSCULOSKELETAL: No cyanosis, or edema. BACK: Nontender without obvious deformity. No CVA tenderness. Procedures None. A/P Problem List: (1) Atrial fibrillation with RVR ICD Code: I48.91 Status: Acute (2) HTN (hypertension) ICD Code: I10 Status: Acute (3) Hypokalemia ICD Code: E87.6 Status: Acute (4) Acute on chronic renal insufficiency ICD Code: N28.9 Status: Acute Assessment and Plan Mrs. Ferreira is a 81 y/o female with a history of atrial fibrillation s/p ablation x 3 who presented to the hospital for evaluation of palpitations. She was found to be in afib with RVR and has been free from afib with RVR for 3 1/2 years since most recent ablation. - Atrial fibrillation with RVR - Dr. Rincon (EP) has already evaluated patient. - Continue Metoprolol 50mg PO BID, Cardizem drip. Also start Cardizem 30mg QID in an effort to wean off Cardizem Drip. - Patient may benefit from switching Metoprolol to Carvedilol 12.5mg BID. This may help to discontinue all anti-hypertensive medications. - [id number] score 4 (female, age > 75, HTN). - Patient will benefit from Anticoagulation - Apixaban 5mg BID would be one choice. Will wait for recommendations from Dr. Rincon. - Hypertension - Patient was on ramipril, hydrochlorothiazide, amlodipine at home. Her blood pressure has been within normal range. Goal blood pressure < 150/90. - We will switch patient from Metoprolol tartrate to Carvedilol and discontinue all blood pressure medications. - If a BP med is needed, we can consider Amlodipine 5mg. Amlodipine causes ankle edema for this patient. - Hypokalemia - Potassium 2.6 on admission - Patient received IV and PO (tablet and liquid) potassium. However, apparently she did not tolerate PO meds well. - Will check BMP and Magnesium level this morning. If Hypokalemia is not improved, we will likely provide IV KCL. Replace Mg depending on Magnesium level. - Acute on chronic renal insufficiency - BUN 32, creatinine 1.35, eGFR 38 - Re-check BMP this morning. - avoid nephrotoxins Full code. Heparin for now. Fortunato Tipton DO Jan 27, 2017 10:12 am
[2017-01-27] MEDS: SODIUM CHLORIDE 0.9% FLUSH 10 ML FLUSH IV FLUSH SCH ×2 (10:25→20:47)
[2017-01-27] MEDS: MULTIVITAMINS/MINERALS THERAPEUTIC TAB PO SCH (10:26)
[2017-01-27] MEDS: DILTIAZEM HCL 30 MG TAB PO SCH ×4 (10:26→23:54)
[2017-01-27] MEDS: CHOLECALCIFEROL (VIT D3) 1000 UNIT TAB PO SCH (10:27)
[2017-01-27] MEDS ORDERED: amLODIPine BESYLATE 5 MG TAB PO SCH (10:30)
[2017-01-27] MEDS ORDERED: ATROPINE SULFATE 1 MG/ML VIAL IV PUSH ONE (11:15)
[2017-01-27] MEDS ORDERED: GLUCAGON 1 MG/ML VIAL IV PUSH ONE (11:15)
[2017-01-27] MEDS ORDERED: ATROPINE SULFATE 1 MG/10 ML SYRINGE ONE (11:15)
[2017-01-27 11:55] LABS: AUTOMATED NEUTROPHIL # 5.9 TH/MM3 (1.8-7.7); BASOPHIL # 0.1 TH/MM3 (0-0.2); BASOPHIL % 0.9 % (0.0-2.0); EOSINOPHIL # 0.1 TH/MM3 (0-0.4); EOSINOPHIL % 0.7 % (0.0-4.0); HEMATOCRIT 36.6 % (35.0-46.0); HEMO FLAGS DIFF FINAL; LYMPH % 23.7 % (9.0-44.0); MEAN CELL VOLUME 95.3 FL (80.0-100.0); MEAN CORPUSCULAR HGB CONC 34.6 % (32.0-36.0); MONO % 5.1 % (0.0-8.0); NEUT % 69.6 % (16.0-70.0); PLATELET COUNT 343 TH/MM3 (150-450); RED BLOOD COUNT 3.84 MIL/MM3 (4.00-5.30); RED CELL DISTRIBUTION WIDTH 13.3 % (11.6-17.2); WHITE BLOOD COUNT 8.5 TH/MM3 (4.0-11.0)
[2017-01-27 12:22] LABS: BICARBONATE 21.4 MEQ/L (21.0-32.0); MAGNESIUM 2.2 MG/DL (1.5-2.5); POTASSIUM 4.3 MEQ/L (3.5-5.1)
[2017-01-27 12:23] LABS: BICARBONATE 19.7 MEQ/L (21.0-32.0); POTASSIUM 4.2 MEQ/L (3.5-5.1)
[2017-01-27] MEDS ORDERED: methylPREDNISolone SOD SUCC 125 MG/2 ML VIAL IV PUSH SCH (15:00)
[2017-01-27] MEDS ORDERED: BENZOCAINE 6 MG/MENTHOL 10 MG LOZENGE BUCCAL PRN (15:00)
[2017-01-27] MEDS: FAMOTIDINE 20 MG/2 ML VIAL IV PUSH SCH (15:15)
[2017-01-27] MEDS: CARVEDILOL 6.25 MG TAB PO SCH (20:47)
[2017-01-27] MEDS ORDERED: CARVEDILOL 12.5 MG TAB PO SCH (21:00)
[2017-01-27] MEDS ORDERED: PRAVASTATIN SOD 20 MG TAB PO SCH (21:00)
--- NOTE | 2017-01-27 22:26 | EKG ---
Date Performed: 01/27/2017 Time Performed: 18:37:00 PTAGE: 81 years EKG: Sinus bradycardia with PAC(s). Prolonged QT interval Anterior T wave changes are nonspecifi c Borderline ECG PREVIOUS TRACING : 01/26/2017 18.30 Compared to previous tracing, sinus bradycardia has replace d atrial fibrillation with a rapid ventricular response, diffuse ST depression has resolved. DOCTOR: Price Hinson Interpretating Date/Time 01/27/2017 22:25:03
[2017-01-28] VITALS (19 sets, daily range): BP systolic 118–144; BP diastolic 59–69; PULSE 70–106; RESP 16–19; TEMP 97.6–98.4; O2SAT 97–99
[2017-01-28] MEDS: FAMOTIDINE 20 MG/2 ML VIAL IV PUSH SCH (02:58)
[2017-01-28] MEDS: DILTIAZEM HCL 30 MG TAB PO SCH ×2 (05:45→12:00)
[2017-01-28] MEDS: LIOTHYRONINE SODIUM 5 MCG TAB PO SCH (05:59)
[2017-01-28] MEDS: SODIUM CHLORIDE 0.9% FLUSH 10 ML FLUSH IV FLUSH SCH (08:53)
[2017-01-28] MEDS: CARVEDILOL 6.25 MG TAB PO SCH (08:53)
[2017-01-28] MEDS: CHOLECALCIFEROL (VIT D3) 1000 UNIT TAB PO SCH (08:53)
[2017-01-28] MEDS: MULTIVITAMINS/MINERALS THERAPEUTIC TAB PO SCH (08:53)
--- NOTE | 2017-01-28 13:35 | HHI.PR ---
Subjective Remarks Tired. I have some family issues Objective Vital Signs Date Time Temp Pulse Resp B/P Pulse Ox O2 Delivery O2 Flow Rate FiO2 01/28/17 10:00 76 01/28/17 09:00 86 01/28/17 08:00 90 01/28/17 07:30 97.6 86 19 126/67 97 01/28/17 07:00 106 01/28/17 06:00 78 01/28/17 05:00 74 01/28/17 04:00 70 01/28/17 04:00 98.3 84 16 118/59 98 01/28/17 03:00 82 01/28/17 02:00 80 01/28/17 01:00 82 01/28/17 00:00 98.4 79 16 129/69 98 01/28/17 00:00 79 01/27/17 23:00 74 01/27/17 22:00 74 01/27/17 21:00 78 01/27/17 20:00 98.5 71 16 131/62 96 01/27/17 20:00 68 01/27/17 18:00 48 01/27/17 17:00 46 01/27/17 16:00 47 01/27/17 15:27 97.6 42 18 117/54 98 01/27/17 15:00 47 01/27/17 14:00 44 I/O 01/27/17 01/27/17 01/27/17 01/28/17 01/28/17 01/28/17 07:00 15:00 23:00 07:00 15:00 23:00 Intake Total 292 ml 550 ml 480 ml Output Total 301 ml 1200 ml Balance 292 ml 249 ml -720 ml Intake Oral 240 ml 550 ml 480 ml IV Total 52 ml Output Urine Total 300 ml 1200 ml Stool Total 1 ml # Voids 1 # Bowel Movements 1 0 Result Diagram: 01/27/17 1147 01/27/17 1147 Imaging Alert, fully oriented Lungs: ventilated Heart: s1, S2 regular, no gallop Abdomen: soft, no mass Ext: no edema Last Impressions Chest X-Ray 01/26/17 1833 Signed Impressions: Service Date/Time: Thursday, January 26, 2017 18:44 - CONCLUSION: 1. No acute intrathoracic process. 2. Mild chronic interstitial changes at the bases. Davian Montoya Jr., MD Current Medications Medications (Trade) Dose Ordered Sig/Keith Route Start Time Stop Time Status Last Admin (NS Flush) 2 ml UNSCH PRN IVF 01/26/17 18:30 (NS Flush) 2 ml UNSCH PRN IV FLUSH 01/26/17 21:30 (NS Flush) 2 ml BID IV FLUSH 01/27/17 09:00 01/28/17 08:53 (Tylenol) 650 mg Q4H PRN PO 01/26/17 21:30 01/27/17 20:50 (Zofran Inj) 4 mg Q6H PRN IVP 01/26/17 21:30 01/27/17 00:41 (Narcan Inj) 0.4 mg UNSCH PRN IV 01/26/17 21:30 (Senokot) 17.2 mg Q12H PRN PO 01/26/17 21:30 (Lovenox Inj) 30 mg Q24H SQ 01/27/17 01:15 01/27/17 23:54 (Xanax) 0.25 mg Q6H PRN PO 01/27/17 08:45 01/27/17 20:47 (Vitamin D3) 1,000 units DAILY PO 01/27/17 09:00 01/28/17 08:53 (Cytomel) 5 mcg DAILY@0600 PO 01/27/17 09:00 01/28/17 05:59 (Pravachol) 20 mg HS PO 01/27/17 21:00 01/27/17 20:47 (Theragran M Tab) 1 tab DAILY PO 01/27/17 09:00 01/28/17 08:53 (Cardizem) 30 mg Q6HR PO 01/27/17 09:00 01/27/17 10:26 (Pepcid Inj) 20 mg Q12H IV PUSH 01/27/17 15:00 01/29/17 14:59 01/28/17 02:58 (Chloraseptic Viry) 1 lozenge UNSCH PRN BUCCAL 01/27/17 15:00 (Coreg) 6.25 mg Q12H PO 01/27/17 20:00 01/28/17 08:53 Assessment and Plan Problem List: (1) Atrial fibrillation with RVR Status: Acute Plan: back into sinus rhythm Doing well Refuses to take cardizem I am ok with it Anxious about going home. Some family issues Nurse inform to consult hospice social worker for further evaluation. (2) HTN (hypertension) Status: Acute Plan: SBP 126 (3) Palpitations Status: Acute Plan: No new episode reported Kin Rincon MD Jan 28, 2017 13:35
--- NOTE | 2017-01-28 14:09 | HHI.FF ---
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 My clinical findings support the need for the requested home health care services because: Patient has SOB Med compliance is questionable I certify that my clinical findings support that this patient is homebound because: Unsafe to leave home unassisted Poor cardiac reserve Hamzah Treadwell MD Jan 28, 2017 14:09
--- NOTE | 2017-01-28 14:28 | MB ---
cc: TOM VORA M.D. DATE OF CONSULTATION 01/27/17 REASON FOR CONSULTATION Atrial fibrillation with rapid ventricular response. HISTORY OF PRESENT ILLNESS Mrs. Ferreira is a 81-year-old female with history of atrial fibrillation, high blood pressure, renal insufficiency, previous ablation, admitted due to atrial fibrillation with rapid ventricular response. During hospitalization she received Cardizem, heart rate controlled. I was consulted for further evaluation and management. The chart was reviewed. The patient was evaluated. ALLERGIES CECLOR, SULFA, CIPRO AND CLONIDINE. SOCIAL HISTORY Negative for smoking and drinking. FAMILY HISTORY Noncontributory to her current medical condition. MEDICATIONS She was on: 1. Hydrochlorothiazide. 2. Amlodapine. 3. Lovastatin. 4. Metoprolol. 5. Altace. 6. Estradiol. 7. Cardizem was added. REVIEW OF SYSTEMS Currently she refers no chest pain or chest discomfort. No fever. PHYSICAL EXAMINATION GENERAL: Alert, fully oriented. VITAL SIGNS: Her blood pressure on evaluation 141/66, pulse around 68, respiratory rate 18. LUNGS: Ventilated. CARDIOVASCULAR: S1-S2 regular. ABDOMEN: Soft. No mass. EXTREMITIES: No edema. CARDIOLOGY STUDIES Electrocardiogram on hospitalization indicated atrial fibrillation with rapid ventricular response. Subsequent telemetry shows sinus rhythm. LABORATORY DATA Hemoglobin is 12.7, white blood cell 8.5, potassium 4.2, creatinine 1.19. ASSESSMENT AND RECOMMENDATIONS Mrs. Ferreira' heart rate controlled. On hospitalization potassium was 2.6, hypokalemia. Heart rate controlled, Cardizem IV DCd. Cardizem p.o. will be initiated. The patient refused at this point anticoagulation. My recommendation, rate control. Switch her Cardizem IV to Cardizem p.o. if the patient accepts to take the medication. If stable in the morning can be discharged home. I will follow her during hospitalization. Tom Vora MD HS/EO /1:42 PM /2:16 PM
--- NOTE | 2017-01-28 16:11 | HHI.PR ---
Subjective Remarks Follow-up for atrial fibrillation Had episodes of hallucinations last night otherwise fine. No further bradycardia or tachycardia. Heart rate is controlled. Discussed with Dr. Rincon , no change in medications. Do not start Cardizem per cardiology. Objective Vitals Vital Signs Date Time Temp Pulse Resp B/P Pulse Ox O2 Delivery O2 Flow Rate FiO2 01/28/17 15:15 97.8 88 16 144/69 99 01/28/17 15:00 92 01/28/17 14:00 98 01/28/17 13:00 74 01/28/17 12:00 76 01/28/17 11:40 98.2 76 16 130/64 99 01/28/17 11:00 83 01/28/17 10:00 76 01/28/17 09:00 86 01/28/17 08:00 90 01/28/17 07:30 97.6 86 19 126/67 97 01/28/17 07:00 106 01/28/17 06:00 78 01/28/17 05:00 74 01/28/17 04:00 70 01/28/17 04:00 98.3 84 16 118/59 98 01/28/17 03:00 82 01/28/17 02:00 80 01/28/17 01:00 82 01/28/17 00:00 98.4 79 16 129/69 98 01/28/17 00:00 79 01/27/17 23:00 74 01/27/17 22:00 74 01/27/17 21:00 78 01/27/17 20:00 98.5 71 16 131/62 96 01/27/17 20:00 68 01/27/17 18:00 48 01/27/17 17:00 46 01/27/17 16:00 47 I/O 01/27/17 01/27/17 01/27/17 01/28/17 01/28/17 01/28/17 07:00 15:00 23:00 07:00 15:00 23:00 Intake Total 292 ml 550 ml 480 ml Output Total 301 ml 1200 ml Balance 292 ml 249 ml -720 ml Intake Oral 240 ml 550 ml 480 ml IV Total 52 ml Output Urine Total 300 ml 1200 ml Stool Total 1 ml # Voids 1 # Bowel Movements 1 0 Result Diagram: 01/27/17 1147 01/27/17 1147 Objective Remarks Not in distress, well-nourished, looks stated age PERRL, pink conjunctiva without injection, anicteric Nose without bleeding, airway patent, oropharynx clear Supple neck, no masses or thyromegaly, trachea midline Normal rate and regular rhythm, no murmurs gallops or rubs appreciated. Clear to auscultation and symmetric bilaterally, normal respiratory effort. Normal bowel sounds, soft, non-tender, nondistended, no guarding. Extremities without clubbing, cyanosis, or edema. No rash of generalized distribution. Skin is warm and dry. AAO x3, no cranial nerve deficits, moves all 4 extremities, no focal neurologic deficits Normal mood, appropriate affect Procedures None. A/P Problem List: (1) Atrial fibrillation with RVR ICD Code: I48.91 Status: Acute (2) HTN (hypertension) ICD Code: I10 Status: Acute (3) Hypokalemia ICD Code: E87.6 Status: Acute (4) Acute on chronic renal insufficiency ICD Code: N28.9 Status: Acute Assessment and Plan Mrs. Ferreira is a 81 y/o female with a history of atrial fibrillation s/p ablation x 3 who presented to the hospital for evaluation of palpitations. She was found to be in afib with RVR and has been free from afib with RVR for 3 1/2 years since most recent ablation. - Atrial fibrillation with RVR - Dr. Rincon (EP) has already evaluated patient. Discussed with cardiology, no change in patient's medications. Did not start Cardizem. Cleared patient for discharge. Continue metoprolol per home dose. Continue apixaban. - Hypertension - Patient was on ramipril, hydrochlorothiazide, amlodipine at home. No change in medications per cardiology, restart antihypertensives. - Hypokalemia - Replaced, resolved - Acute on chronic renal insufficiency - Better, likely at baseline. Patient had a remarkable rapid recovery faster than expected. Full code Discharge patient to home/sister's home Condition on discharge: Improved Regular Diet as tolerated Ad Allie activity Rx written: None Follow-up with cardiology in 2 weeks Hamzah Treadwell MD Jan 28, 2017 16:11
== END 2017-01-28 16:05 | disposition home health service (06) | DRG 309 ==
LOC: NEPD 18:23 → NEDA 21:06 → NEDH 01-27 01:06 → HCIS 01-27 05:38
PROVIDERS: ADMIT Hospitalist; ATTEND Hospitalist
DX: I48.91 Unspecified atrial fibrillation (principal); R44.3 Hallucinations, unspecified; I12.9 Hypertensive chronic kidney disease with stage 1 through stage 4 chronic kidney disease, or unspecified chronic kidney disease; N18.9 Chronic kidney disease, unspecified; N28.9 Disorder of kidney and ureter, unspecified; E87.6 Hypokalemia; E78.00 Pure hypercholesterolemia, unspecified
CPT/HCPCS: 71010; 80048; 82550; 83735; 84443; 84484; 85025; 85610; 93005; 96374; 96375; 96376; J0461; J1610; J1650; J2405

== ENCOUNTER 2017-02-08 21:39 | Emergency (ER) | payer MEDICARE, BC ==
[2017-02-08] VITALS (8 sets, daily range): BP systolic 106–155; BP diastolic 60–88; PULSE 56–138; RESP 14–20; TEMP 97.8; O2SAT 96–98
[~2017-02-08] VITALS: Ht 167.6 cm; Wt 80.0 kg
[~2017-02-08 21:39] MED LIST changes: +CENTCHW4 CHEW; -HYDR12.57 PO; +HYDR25TA5 PO; +SENN1TAB PO; +VITA100036 PO
[2017-02-08] MEDS ORDERED: DILTIAZEM HCL 25 MG/5 ML VIAL IV ONE (22:15)
[2017-02-08] MEDS ORDERED: SODIUM CHLORIDE 0.9% FLUSH 10 ML FLUSH IVF PRN (22:15)
--- NOTE | 2017-02-08 22:21 | PD ---
HPI . palpitations Chief Complaint: Cardiac Complaint Time Seen by Provider: 21:52 Travel History International Travel<30 days: No Contact w/Intl Traveler<30days: No Traveled to known affect area: No History of Present Illness HPI 81 year old female with a history of atrial fibrillation and hypertension presents to the ED complaining of palpitations. Patient reports onset was approximately 3 hours ago. She was watching TV when she started having palpitations and pounding heart. She took her evening medications but that did not provide any relief. She spoke with her PCP who recommended she take an extra dose of her metoprolol, her heart rate was still around 130 an hour later so she decided to come in. No other complaints. Patient denies any headache, chest pain, or shortness of breath. Patient notes a history of A-fib and 3 cardiac ablations 3 years ago for it. Notes that she was out of A-fib since her ablations until recently. She was admitted on 01/26 for A-fib with RVR and seen by her educational adviser Dr. Monge. She refused anticoagulation at the time and therefore is not on any. 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)) Cardiac Catheterization: No Cardiovascular Problems: Yes (afib) High Cholesterol: Yes (controlled) Chemotherapy: No Chest Pain: No Congestive Heart Failure: No COPD: No Cerebrovascular Accident: No Diabetes: No Diminished Hearing: No Endocrine: No Gastrointestinal Disorders: No GERD: No Glaucoma: No Genitourinary: No Headaches: No Hepatitis: No Hiatal Hernia: No Heparin Induced Thrombocytopen: No Hypertension: Yes Immune Disorder: No Implanted Vascular Access Dvce: Yes Kidney Stones: No Musculoskeletal: Yes (DIFFICULTY WALKING R/T HIP SURGERIES) Neurologic: No Psychiatric: Yes Reproductive: No Respiratory: No Immunizations Current: Yes Migraines: No Myocardial Infarction: No Radiation Therapy: No Renal Failure: No Seizures: No Sickle Cell Disease: No Sleep Apnea: No Thyroid Disease: Yes Ulcer: No PNEUMOCCOCAL Vaccine (Year): 3 ?: Not Menopausal: Yes Past Surgical History Abdominal Surgery: No AICD: No Appendectomy: No Arteriovenous Shunt: No Cardiac Surgery: Yes (ablation x3) Cholecystectomy: No Coronary Artery Bypass Graft: No Ear Surgery: No Endocrine Surgery: No Eye Surgery: No Genitourinary Surgery: No Gynecologic Surgery: Yes (hysterectomy) Hysterectomy: Yes Insulin Pump: No Joint Replacement: Yes (bilat hip) Neurologic Surgery: No Oral Surgery: No Pacemaker: No Thoracic Surgery: No Other Surgery: Yes Social History Alcohol Use: No Tobacco Use: No (quit at 27 years of age) Substance Use: No Allergies-Medications (Allergen,Severity, Reaction): Coded Allergies: Ceclor (Verified Allergy, Severe, RASH, 10/17/16) Paroxetine (Verified Allergy, Severe, 02/08/17) Sulfa (Verified Allergy, Severe, RASH, 10/17/16) Cipro (Verified Allergy, Unknown, GI UPSET, 10/17/16) Clonidine (Verified Allergy, Unknown, SKIN IRRITATION, 10/17/16) Uncoded Allergies: latex bandages (Allergy, Mild, SKIN REDNESS, RASH, 05/10/13) Reported Meds & Prescriptions Reported Meds & Active Scripts Active Reported Senna Plus 8.6-50 mg (Sennosides-Docusate Sodium) 1 Tab Tab 1 Tab PO DAILY Centrum (Multiple Vitamins W/ Minerals) 1 Chew 1 Tab CHEW DAILY Vitamin D3 (Cholecalciferol) 1,000 Unit Cap 1,000 Units PO DAILY Hydrochlorothiazide 25 Mg Tab 25 Mg PO DAILY Liothyronine (Liothyronine Sodium) 5 Mcg Tab 5 Mcg PO DAILY Amlodipine (Amlodipine Besylate) 10 Mg Tab 10 Mg PO DAILY Lovastatin 20 Mg Tab 20 Mg PO DAILY Metoprolol Tartrate 50 Mg Tab 50 Mg PO BID Ramipril 10 Mg Cap 10 Mg PO BID Alprazolam 0.25 Mg Tab 0.25 Mg PO Q6H PRN Estradiol 0.5 Mg Tab 0.5 Mg PO WEEKLY Review of Systems General / Constitutional: No: Fever, Chills HENT: No: Headaches Cardiovascular: Positive: Palpitations, Irregular Rhythm, Tachycardia Respiratory: No: Cough, Shortness of Breath Gastrointestinal: No: Nausea, Vomiting, Abdominal Pain Neurologic: No: Dizziness, Syncope Physical Exam Narrative GENERAL: Awake and alert female appearing stated age in no acute distress. is at the bedside. SKIN: Focused skin assessment warm/dry. Numerous bruises throughout arms and legs. No rashes. HEAD: Atraumatic. Normocephalic. EYES: Pupils equal and round. No scleral icterus. No injection or drainage. ENT: No nasal bleeding or discharge. Mucous membranes pink and moist. NECK: Trachea midline. No JVD. CARDIOVASCULAR: Tachycardic, irregular rhythm. No murmur appreciated. RESPIRATORY: No accessory muscle use. Clear to auscultation. Breath sounds equal bilaterally. GASTROINTESTINAL: Abdomen soft, non-tender, nondistended. MUSCULOSKELETAL: No obvious deformities. No clubbing. No cyanosis. No edema. NEUROLOGICAL: Awake and alert. No obvious cranial nerve deficits. Motor grossly within normal limits. Normal speech. PSYCHIATRIC: Appropriate mood and affect; insight and judgment normal. Data Data Last Documented VS Vital Signs Date Time Temp Pulse Resp B/P Pulse Ox O2 Delivery O2 Flow Rate FiO2 02/08/17 22:20 99 Nasal Cannula 2 02/08/17 22:05 20 02/08/17 21:41 97.8 138 155/70 Orders Ckmb (Isoenzyme) Profile (02/08/17 22:13) Complete Blood Count With Diff (02/08/17 22:13) Comprehensive Metabolic Panel (02/08/17 22:13) Magnesium (Mg) (02/08/17 22:13) Troponin I (02/08/17 22:13) Ecg Monitoring (02/08/17 22:13) Iv Access Insert/Monitor (02/08/17 22:13) Oximetry (02/08/17 22:13) Oxygen Administration (02/08/17 22:13) Sodium Chloride 0.9% Flush (Ns Flush) (02/08/17 22:15) Diltiazem Inj (Cardizem Inj) (02/08/17 22:15) Electrocardiogram (02/08/17 ) Potassium Chloride (Kcl) (02/08/17 23:45) Electrocardiogram (02/08/17 ) Labs Laboratory Tests Test 02/08/17 22:30 White Blood Count 10.3 TH/MM3 Red Blood Count 3.90 MIL/MM3 Hemoglobin 13.1 GM/DL Hematocrit 36.8 % Mean Corpuscular Volume 94.3 FL Mean Corpuscular Hemoglobin 33.6 PG Mean Corpuscular Hemoglobin 35.6 % Concent Red Cell Distribution Width 12.9 % Platelet Count 268 TH/MM3 Mean Platelet Volume 7.7 FL Neutrophils (%) (Auto) 72.6 % Lymphocytes (%) (Auto) 17.0 % Monocytes (%) (Auto) 8.5 % Eosinophils (%) (Auto) 1.2 % Basophils (%) (Auto) 0.7 % Neutrophils # (Auto) 7.5 TH/MM3 Lymphocytes # (Auto) 1.7 TH/MM3 Monocytes # (Auto) 0.9 TH/MM3 Eosinophils # (Auto) 0.1 TH/MM3 Basophils # (Auto) 0.1 TH/MM3 CBC Comment DIFF FINAL Differential Comment Sodium Level 132 MEQ/L Potassium Level 3.3 MEQ/L Chloride Level 99 MEQ/L Carbon Dioxide Level 25.8 MEQ/L Anion Gap 7 MEQ/L Blood Urea Nitrogen 23 MG/DL Creatinine 1.07 MG/DL Estimat Glomerular Filtration 49 ML/MIN Rate Random Glucose 183 MG/DL Calcium Level 8.9 MG/DL Magnesium Level 2.0 MG/DL Total Bilirubin 0.4 MG/DL Aspartate Amino Transf 31 U/L (AST/SGOT) Alanine Aminotransferase 27 U/L (ALT/SGPT) Alkaline Phosphatase 70 U/L Total Creatine Kinase 61 U/L Troponin I LESS THAN 0.02 NG/ML Total Protein 6.4 GM/DL Albumin 3.4 GM/DL MDM Medical Decision Making Medical Screen Exam Complete: Yes Emergency Medical Condition: Yes Medical Record Reviewed: Yes (Patient was seen in the ED on 01/26/2017 for A- fib with RVR ) Interpretation(s) EKG reveals atrial fibrillation with RVR, rate 114. Nonspecific ST changes. Laboratory Tests Test 02/08/17 22:30 White Blood Count 10.3 TH/MM3 Red Blood Count 3.90 MIL/MM3 Hemoglobin 13.1 GM/DL Hematocrit 36.8 % Mean Corpuscular Volume 94.3 FL Mean Corpuscular Hemoglobin 33.6 PG Mean Corpuscular Hemoglobin 35.6 % Concent Red Cell Distribution Width 12.9 % Platelet Count 268 TH/MM3 Mean Platelet Volume 7.7 FL Neutrophils (%) (Auto) 72.6 % Lymphocytes (%) (Auto) 17.0 % Monocytes (%) (Auto) 8.5 % Eosinophils (%) (Auto) 1.2 % Basophils (%) (Auto) 0.7 % Neutrophils # (Auto) 7.5 TH/MM3 Lymphocytes # (Auto) 1.7 TH/MM3 Monocytes # (Auto) 0.9 TH/MM3 Eosinophils # (Auto) 0.1 TH/MM3 Basophils # (Auto) 0.1 TH/MM3 CBC Comment DIFF FINAL Differential Comment Sodium Level 132 MEQ/L Potassium Level 3.3 MEQ/L Chloride Level 99 MEQ/L Carbon Dioxide Level 25.8 MEQ/L Anion Gap 7 MEQ/L Blood Urea Nitrogen 23 MG/DL Creatinine 1.07 MG/DL Estimat Glomerular Filtration 49 ML/MIN Rate Random Glucose 183 MG/DL Calcium Level 8.9 MG/DL Magnesium Level 2.0 MG/DL Total Bilirubin 0.4 MG/DL Aspartate Amino Transf 31 U/L (AST/SGOT) Alanine Aminotransferase 27 U/L (ALT/SGPT) Alkaline Phosphatase 70 U/L Total Creatine Kinase 61 U/L Troponin I LESS THAN 0.02 NG/ML Total Protein 6.4 GM/DL Albumin 3.4 GM/DL EKG #2 reveals sinus bradycardia with a rate of 52. Differential Diagnosis Differentials include atrial fibrillation with RVR, SVT, FL, PE, pneumonia, PVCs , anxiety, hypokalemia, electrolyte abnormality, dehydration. Narrative Course IV was established, labs are drawn and sent, and the patient was placed on cardiac telemetry monitoring and continuous pulse ox imaging monitoring. EKG was ordered and interpreted. The patient's heart rate varied between 115 130, she took an extra dose [facility], for total of 150 mg over the course of the day. The patient continued to be in A. 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 The patient was recently admitted to the hospital for A. fib with RVR was seen by her educational adviser, Dr. Rincon. The patient is currently on metoprolol 50 mg twice a day for rate control, states she does not take any blood thinners at the advice of her educational adviser. She states she does not take aspirin or any other normal anticoagulant secondary to easy bruising and does not currently want to be on anticoagulation. After the Cardizem bolus of 15 mg intravenously the patient's heart rate came down into the 70s and fluctuated between the 70s and mid 90s. Potassium is mildly low at 3.3, was replaced orally. Troponin is negative. The patient's heart rate had improved. The patient is advised to follow-up with her educational adviser in the morning, will be provided a copy of her labs at discharge. As I was reviewing the discharge instructions with the patient it was noted that the patient's heart rate was in the 50s and 60s, he appeared to be normal sinus rhythm. Therefore, repeat EKG was performed. EKG #2 revealed sinus bradycardia with a heart rate of 52. The patient will be provided a copy of her labs and EKGs at discharge and advised to follow-up with her educational adviser in the morning. Diagnosis Primary Impression: Atrial fibrillation with RVR Additional Impression: Hypokalemia Patient Instructions: General Instructions Additional Instructions: Please provide the patient a copy of her labs and EKG at discharge. Call your educational adviser in the morning. Return if symptoms worsen or progress. Med/Other Pt SpecificInfo: No Change to Meds Disposition: 01 DISCHARGE HOME Condition: Stable Samy Cruz MD Feb 08, 2017 22:21
[2017-02-08 22:55] LABS: AUTOMATED NEUTROPHIL # 7.5 TH/MM3 (1.8-7.7); BASOPHIL # 0.1 TH/MM3 (0-0.2); BASOPHIL % 0.7 % (0.0-2.0); EOSINOPHIL # 0.1 TH/MM3 (0-0.4); EOSINOPHIL % 1.2 % (0.0-4.0); HEMATOCRIT 36.8 % (35.0-46.0); HEMO FLAGS DIFF FINAL; LYMPHOCYTE # 1.7 TH/MM3 (1.0-4.8); MEAN CELL VOLUME 94.3 FL (80.0-100.0); MEAN CORPUSCULAR HEMOGLOBIN 33.6 PG (27.0-34.0); MEAN CORPUSCULAR HGB CONC 35.6 % (32.0-36.0); MONO % 8.5 % (0.0-8.0); NEUT % 72.6 % (16.0-70.0); PLATELET COUNT 268 TH/MM3 (150-450); RED CELL DISTRIBUTION WIDTH 12.9 % (11.6-17.2); WHITE BLOOD COUNT 10.3 TH/MM3 (4.0-11.0)
[2017-02-08 23:06] LABS: ALT (GPT) 27 U/L (10-53)
[2017-02-08 23:23] LABS: ALKALINE PHOSPHATASE 70 U/L (45-117); ANION GAP 7 MEQ/L (5-15); BICARBONATE 25.8 MEQ/L (21.0-32.0); BLOOD UREA NITROGEN 23 MG/DL (7-18); CHLORIDE 99 MEQ/L (98-107); GLOMERULAR FILTRATION RATE 49 ML/MIN (>89); POTASSIUM 3.3 MEQ/L (3.5-5.1); SODIUM (NA) 132 MEQ/L (136-145); TOTAL BILIRUBIN ADULT 0.4 MG/DL (0.2-1.0)
[2017-02-08 23:24] LABS: AST (GOT) 31 U/L (15-37); CREATINE KINASE 61 U/L (26-192)
[2017-02-08] MEDS ORDERED: POTASSIUM CHLORIDE 20 MEQ CONTROLLED RELEASE TAB PO ONE (23:45)
[2017-02-09 00:01] VITALS: O2SAT 96
[2017-02-09 00:18] VITALS: BP 123/67; PULSE 55; RESP 20; O2SAT 97
[2017-02-09 00:49] VITALS: BP 122/68
--- NOTE | 2017-02-09 13:59 | EKG ---
Date Performed: 02/08/2017 Time Performed: 21:58:07 PTAGE: 81 years EKG: ATRIAL FIBRILLATION WITH RAPID VENTRICULAR RESPONSE NONSPECIFIC ST & T-WAVE ABNORMALITY The patient is no longer in Sinus rhythm ABNORMAL RHYTHM ECG NO PREVIOUS TRACING :01/27/17 DOCTOR: Korey Lockett Interpretating Date/Time 02/09/2017 13:58:19
--- NOTE | 2017-02-09 13:59 | EKG ---
Date Performed: 02/08/2017 Time Performed: 23:58:52 PTAGE: 81 years EKG: SINUS BRADYCARDIA WITH OCCASIONAL SUPRAVENTRICULAR PREMATURE COMPLEXES BORDERLINE ECG Juan M red to PREVIOUS TRACING the patient is no longer in atrial fibrillation PREVIOUS TRACIN02/08 21.58 DOCTOR: Korey Lockett Interpretating Date/Time 02/09/2017 13:58:44
== END 2017-02-09 00:51 | disposition home or self-care (01) ==
LOC: NEPE 21:39
DX: I48.91 Unspecified atrial fibrillation (principal); E87.6 Hypokalemia; R00.1 Bradycardia, unspecified; R00.2 Palpitations; R94.31 Abnormal electrocardiogram [ECG] [EKG]; I10 Essential (primary) hypertension; E78.00 Pure hypercholesterolemia, unspecified; F41.9 Anxiety disorder, unspecified; Z79.899 Other long term (current) drug therapy
CPT/HCPCS: 80053; 82550; 83735; 84484; 85025; 93005; 96374

== ENCOUNTER 2017-02-18 16:39 | Inpatient (IN) | payer MEDICARE, BC ==
[~2017-02-18] VITALS: Ht 162.6 cm; Wt 70.0 kg
[2017-02-18 16:43] VITALS: BP 162/74; PULSE 138; RESP 24; TEMP 97.8; O2SAT 98
--- NOTE | 2017-02-18 16:49 | PD ---
Physical Exam Time Seen by Provider: 16:47 Narrative 81 y/o female with hx of atrial fibrillation presents for evaluation of elevated heart rate. She called Dr. Haddad office and referred here. Vital signs reviewed. seen at triage desk. Awaiting bed placement. Data Data Last Documented VS Vital Signs Date Time Temp Pulse Resp B/P Pulse Ox O2 Delivery O2 Flow Rate FiO2 02/18/17 16:43 97.8 138 24 162/74 98 Room Air [facility] Medical Record Reviewed: Yes Supervised Visit with [facility]: No Karlo Kulkarni Feb 18, 2017 16:49
[2017-02-18] MEDS ORDERED: ESTR0.02 T-DERMAL (17:14)
[2017-02-18] MEDS ORDERED: SODIUM CHLORIDE 0.9% FLUSH 10 ML FLUSH IVF PRN (17:15)
[2017-02-18] MEDS ORDERED: SODIUM CHLORID 0.9% 500 ML INJ 500 ML IV ONE (17:15)
[2017-02-18 17:17] VITALS: O2SAT 99
[2017-02-18] MEDS ORDERED: DILTIAZEM HCL 25 MG/5 ML VIAL IV PUSH ONE (17:45)
--- NOTE | 2017-02-18 18:03 | RADRPT ---
EXAM DATE/TIME: 02/18/2017 17:21 [place] COMPARISON: CHEST SINGLE AP, January 26, 2017, 18:44. INDICATIONS : Chest discomfort; afib. MEDICAL HISTORY : Hypertension. Hypercholesterolemia. A-fib. SURGICAL HISTORY : None. ENCOUNTER: Initial ACUITY: 1 day PAIN SCORE: 2/10 LOCATION: Bilateral chest FINDINGS: Stable left lower lung zone airspace disease. No new focal pleural or parenchymal opacities. Cardiome diastinal contours are stable. Bony thorax is grossly intact. CONCLUSION: 1. Stable left lower lung zone atelectasis versus scarring. 2. No acute abnormality or significant interval change. Nando Bass MD on February 18, 2017 at 18:01 Board Certified Radiologist. This report was verified electronically.
[2017-02-18 18:07] LABS: AUTOMATED NEUTROPHIL # 6.9 TH/MM3 (1.8-7.7); BASOPHIL # 0.1 TH/MM3 (0-0.2); BASOPHIL % 0.6 % (0.0-2.0); EOSINOPHIL # 0.2 TH/MM3 (0-0.4); EOSINOPHIL % 1.7 % (0.0-4.0); HEMATOCRIT 38.9 % (35.0-46.0); HEMO FLAGS DIFF FINAL; LYMPH % 26.8 % (9.0-44.0); MEAN CELL VOLUME 95.2 FL (80.0-100.0); MEAN CORPUSCULAR HEMOGLOBIN 33.7 PG (27.0-34.0); MEAN CORPUSCULAR HGB CONC 35.4 % (32.0-36.0); MONO % 8.3 % (0.0-8.0); NEUT % 62.6 % (16.0-70.0); PLATELET COUNT 287 TH/MM3 (150-450); RED BLOOD COUNT 4.08 MIL/MM3 (4.00-5.30); RED CELL DISTRIBUTION WIDTH 12.7 % (11.6-17.2); WHITE BLOOD COUNT 11.1 TH/MM3 (4.0-11.0)
--- NOTE | 2017-02-18 18:13 | PD ---
HPI Chief Complaint: Cardiac Complaint Time Seen by Provider: 17:09 Travel History International Travel<30 days: No Contact w/Intl Traveler<30days: No Traveled to known affect area: No History of Present Illness HPI Patient is a 81-year-old female with history of atrial fibrillation, hypertension, hyperlipidemia, hypothyroidism, presents to emergency room with complaints of atrial fibrillation. Patient reports that she was seen at Dr. White's office today around 2:30PM and had a holter monitor placed as she has been having bouts of proximal A. fib. Reports that she went home today and noticed that her heart rate went to the 160s. She reports that she feels as if her heart is beating out of her chest. Reports that she has had 3 ablations in the past by Dr. Rincon - reports that the last ablation lasted 3 years and now "it's back." Reports that she was on anticoagulation in the past, reports that she currently is not on any blood thinners. Patient denies any chest pain or shortness breath at this time. PFSH Past Medical History Hx Anticoagulant Therapy: Yes Arthritis: Yes (lower back) Asthma: No Atrial Fibrillation: Yes Autoimmune Disease: No Blood Disorders: No Anxiety: Yes Depression: Yes Heart Rhythm Problems: Yes (afib) Cancer: Yes (skin, left thigh and nose (removed)) Cardiac Catheterization: No Cardiovascular Problems: Yes High Cholesterol: Yes (controlled) Chemotherapy: No Chest Pain: No Congestive Heart Failure: No COPD: No Cerebrovascular Accident: No Diabetes: No Diminished Hearing: No Endocrine: No Gastrointestinal Disorders: No GERD: No Glaucoma: No Genitourinary: No Headaches: No Hepatitis: No Hiatal Hernia: No Heparin Induced Thrombocytopen: No Hypertension: Yes Immune Disorder: No Implanted Vascular Access Dvce: Yes Kidney Stones: No Musculoskeletal: Yes (DIFFICULTY WALKING R/T HIP SURGERIES) Neurologic: No Psychiatric: Yes Reproductive: No Respiratory: No Immunizations Current: Yes Migraines: No Myocardial Infarction: No Radiation Therapy: No Renal Failure: No Seizures: No Sickle Cell Disease: No Sleep Apnea: No Thyroid Disease: Yes Ulcer: No PNEUMOCCOCAL Vaccine (Year): 3 ?: Not Menopausal: Yes : 2 Para: 1 Past Surgical History Abdominal Surgery: No AICD: No Appendectomy: No Arteriovenous Shunt: No Cardiac Surgery: Yes (ablation x3) Cholecystectomy: No Coronary Artery Bypass Graft: No Ear Surgery: No Endocrine Surgery: No Eye Surgery: No Genitourinary Surgery: No Gynecologic Surgery: Yes (hysterectomy) Hysterectomy: Yes Insulin Pump: No Joint Replacement: Yes (bilat hip) Neurologic Surgery: No Oral Surgery: No Pacemaker: No Thoracic Surgery: No Other Surgery: Yes Family History Family Myocardial Infarction: Yes Social History Alcohol Use: No Tobacco Use: No (quit at 27 years of age) Substance Use: No Allergies-Medications (Allergen,Severity, Reaction): Coded Allergies: Ceclor (Verified Allergy, Severe, RASH, 02/18/17) Paroxetine (Verified Allergy, Severe, 02/18/17) Sulfa (Verified Allergy, Severe, RASH, 02/18/17) Cipro (Verified Allergy, Unknown, GI UPSET, 02/18/17) Clonidine (Verified Allergy, Unknown, SKIN IRRITATION, 02/18/17) Uncoded Allergies: latex bandages (Allergy, Mild, SKIN REDNESS, RASH, 05/10/13) Reported Meds & Prescriptions Reported Meds & Active Scripts Active Reported Estradiol Patch 168 HR (Estradiol) 0.025 Mg/24 Hr Patch 1 Patch T-DERMAL Q7D Remove old patch and discard when new patch being placed. Senna Plus 8.6-50 mg (Sennosides-Docusate Sodium) 1 Tab Tab 1 Tab PO DAILY Centrum (Multiple Vitamins W/ Minerals) 1 Chew 1 Tab CHEW DAILY Vitamin D3 (Cholecalciferol) 1,000 Unit Cap 1,000 Units PO DAILY Hydrochlorothiazide 25 Mg Tab 25 Mg PO DAILY Liothyronine (Liothyronine Sodium) 5 Mcg Tab 5 Mcg PO DAILY Amlodipine (Amlodipine Besylate) 10 Mg Tab 10 Mg PO DAILY Lovastatin 20 Mg Tab 20 Mg PO DAILY Metoprolol Tartrate 50 Mg Tab 50 Mg PO BID Ramipril 10 Mg Cap 10 Mg PO BID Alprazolam 0.25 Mg Tab 0.25 Mg PO Q6H PRN Review of Systems General / Constitutional: No: Fever Eyes: No: Visual changes HENT: No: Headaches Cardiovascular: Positive: Palpitations, Irregular Rhythm, Tachycardia, No: Chest Pain or Discomfort Respiratory: No: Shortness of Breath Gastrointestinal: No: Abdominal Pain Genitourinary: No: Dysuria Musculoskeletal: No: Pain Skin: No Rash Neurologic: No: Weakness Psychiatric: No: Depression Endocrine: No: Polydipsia Hematologic/Lymphatic: No: Easy Bruising Physical Exam Narrative GENERAL: mild distress SKIN: Focused skin assessment warm/dry. HEAD: Atraumatic. Normocephalic. EYES: Pupils equal and round. No scleral icterus. No injection or drainage. ENT: No nasal bleeding or discharge. Mucous membranes pink and moist. NECK: Trachea midline. No JVD. CARDIOVASCULAR: Irregular rate and rhythm. No murmur appreciated. RESPIRATORY: No accessory muscle use. Clear to auscultation. Breath sounds equal bilaterally. GASTROINTESTINAL: Abdomen soft, non-tender, nondistended. Hepatic and splenic margins not palpable. MUSCULOSKELETAL: No obvious deformities. No clubbing. No cyanosis. +1 edema b/ l. NEUROLOGICAL: Awake and alert. No obvious cranial nerve deficits. Motor grossly within normal limits. Normal speech. PSYCHIATRIC: Appropriate mood and affect; insight and judgment normal. Data Data Last Documented VS Vital Signs Date Time Temp Pulse Resp B/P Pulse Ox O2 Delivery O2 Flow Rate FiO2 02/18/17 17:17 99 Room Air 02/18/17 16:55 137 20 02/18/17 16:43 97.8 162/74 Orders B-Type Natriuretic Peptide (02/18/17 17:09) Ckmb (Isoenzyme) Profile (02/18/17 17:09) Complete Blood Count With Diff (02/18/17 17:09) Comprehensive Metabolic Panel (02/18/17 17:09) Magnesium (Mg) (02/18/17 17:09) Prothrombin Time / Inr (Pt) (02/18/17 17:09) Act Partial Throm Time (Ptt) (02/18/17 17:09) Chest, Single Ap (02/18/17 17:09) Ecg Monitoring (02/18/17 17:09) Iv Access Insert/Monitor (02/18/17 17:09) Oximetry (02/18/17 17:09) Sodium Chloride 0.9% Flush (Ns Flush) (02/18/17 17:15) Sodium Chlorid 0.9% 500 Ml Inj (Ns 500 M (02/18/17 17:15) Diltiazem Inj (Cardizem Inj) (02/18/17 17:45) Electrocardiogram (02/18/17 17:01) Vital Signs (Adult) Q15MX4,Q4H (02/18/17 19:06) Cardiac Rhythm EVA.Q8H (02/18/17 19:06) Notify Dr: Other (02/18/17 19:06) Diltiazem Inj (Cardizem Inj) (02/18/17 19:15) Potassium Chloride (Kcl) (02/18/17 19:45) Labs Laboratory Tests Test 02/18/17 17:17 White Blood Count 11.1 TH/MM3 Red Blood Count 4.08 MIL/MM3 Hemoglobin 13.8 GM/DL Hematocrit 38.9 % Mean Corpuscular Volume 95.2 FL Mean Corpuscular Hemoglobin 33.7 PG Mean Corpuscular Hemoglobin 35.4 % Concent Red Cell Distribution Width 12.7 % Platelet Count 287 TH/MM3 Mean Platelet Volume 8.3 FL Neutrophils (%) (Auto) 62.6 % Lymphocytes (%) (Auto) 26.8 % Monocytes (%) (Auto) 8.3 % Eosinophils (%) (Auto) 1.7 % Basophils (%) (Auto) 0.6 % Neutrophils # (Auto) 6.9 TH/MM3 Lymphocytes # (Auto) 3.0 TH/MM3 Monocytes # (Auto) 0.9 TH/MM3 Eosinophils # (Auto) 0.2 TH/MM3 Basophils # (Auto) 0.1 TH/MM3 CBC Comment DIFF FINAL Differential Comment Prothrombin Time 10.0 SEC Prothromb Time International 0.9 RATIO Ratio Activated Partial 25.9 SEC Thromboplast Time Sodium Level 133 MEQ/L Potassium Level 3.0 MEQ/L Chloride Level 98 MEQ/L Carbon Dioxide Level 24.3 MEQ/L Anion Gap 11 MEQ/L Blood Urea Nitrogen 20 MG/DL Creatinine 1.17 MG/DL Estimat Glomerular Filtration 45 ML/MIN Rate Random Glucose 144 MG/DL Calcium Level 9.4 MG/DL Magnesium Level 2.0 MG/DL Total Bilirubin 0.7 MG/DL Aspartate Amino Transf 25 U/L (AST/SGOT) Alanine Aminotransferase 25 U/L (ALT/SGPT) Alkaline Phosphatase 77 U/L Total Creatine Kinase 56 U/L B-Type Natriuretic Peptide 149 PG/ML Total Protein 7.0 GM/DL Albumin 3.7 GM/DL MDM Medical Decision Making Medical Screen Exam Complete: Yes Emergency Medical Condition: Yes Interpretation(s) EKG at 1701: afib with rvr at 118bpm Vital Signs Date Time Temp Pulse Resp B/P Pulse Ox O2 Delivery O2 Flow Rate FiO2 02/18/17 17:17 99 Room Air 02/18/17 16:55 137 20 98 Room Air 02/18/17 16:43 97.8 138 24 162/74 98 Room Air Differential Diagnosis Differential includes A. fib with RVR, arrhythmia, electrolyte abnormality Narrative Course Patient is a 81-year-old female who presents to emergency room with complaints of A. fib with RVR. As had history of 3 ablations in the past by Dr. Rincon, she is currently wearing a holter monitor as she has been having episodes of proximal A. fib. Patient was told by 's office to come to the ER as her heart rate was in the 170's today. Patient reports that she is compliant with her medications which includes metoprolol, I declare thiazide and amlodipine. Upon presentation to the emergency room, patient was placed on a monitor tech. An EKG was obtained which showed A. fib with RVR. Lab work including x-ray of the chest ordered. Cardizem IV ordered for patient. Cardizem 18mg was given to patient with no resolution of symptoms, will place patient on a cardizem drip. Plan to obs patient to medicine service case reviewed with dr. boyle who accepts pt to service Diagnosis Primary Impression: Atrial fibrillation with RVR Additional Impression: Hypokalemia Admitting Information Admitting Physician Requests: Jayne Perez DO Feb 18, 2017 18:13
[2017-02-18 18:17] LABS: APTT (PATIENT) 25.9 SEC (24.3-30.1); INTERNATIONAL NORMALIZED RATIO 0.9 RATIO
[2017-02-18 18:24] LABS: ANION GAP 11 MEQ/L (5-15); AST (GOT) 25 U/L (15-37); BICARBONATE 24.3 MEQ/L (21.0-32.0); BLOOD UREA NITROGEN 20 MG/DL (7-18); CHLORIDE 98 MEQ/L (98-107); GLOMERULAR FILTRATION RATE 45 ML/MIN (>89); SODIUM (NA) 133 MEQ/L (136-145)
[2017-02-18 18:25] LABS: ALT (GPT) 25 U/L (10-53)
[2017-02-18 18:27] LABS: ALKALINE PHOSPHATASE 77 U/L (45-117); TOTAL BILIRUBIN ADULT 0.7 MG/DL (0.2-1.0)
[2017-02-18 18:30] LABS: CREATINE KINASE 56 U/L (26-192)
[2017-02-18] MEDS ORDERED: DILTIAZEM INJ 125 MG in SODIUM CHLORIDE 0.9% INJ 100 ML IV SCH (19:15)
[2017-02-18] MEDS ORDERED: POTASSIUM CHLORIDE 10 MEQ CONTROLLED RELEASE TAB PO ONE (19:45)
--- NOTE | 2017-02-18 19:56 | HHI.HP ---
[facility] Service [facility] Primary Care Physician Champ Reyes MD Admission Diagnosis Afib with rvr Diagnoses: Travel History International Travel<30 Days: No Contact w/Intl Traveler <30 Da: No Traveled to Known Affected Are: No Past Family Social History Allergies: Coded Allergies: Ceclor (Verified Allergy, Severe, RASH, 02/18/17) Paroxetine (Verified Allergy, Severe, 02/18/17) Sulfa (Verified Allergy, Severe, RASH, 02/18/17) Cipro (Verified Allergy, Unknown, GI UPSET, 02/18/17) Clonidine (Verified Allergy, Unknown, SKIN IRRITATION, 02/18/17) Uncoded Allergies: latex bandages (Allergy, Mild, SKIN REDNESS, RASH, 05/10/13) Physical Exam Vital Signs Vital Signs Date Time Temp Pulse Resp B/P Pulse Ox O2 Delivery O2 Flow Rate FiO2 02/18/17 17:17 99 Room Air 02/18/17 16:55 137 20 98 Room Air 02/18/17 16:43 97.8 138 24 162/74 98 Room Air Physical Exam GENERAL: This is a well-nourished, well-developed patient, in no apparent distress. SKIN: No rashes, ecchymoses or lesions. Cool and dry. HEAD: Atraumatic. Normocephalic. No temporal or scalp tenderness. EYES: Pupils equal round and reactive. Extraocular motions intact. No scleral icterus. No injection or drainage. ENT: Nose without bleeding, purulent drainage or septal hematoma. Throat without erythema, tonsillar hypertrophy or exudate. Uvula midline. Airway patent. NECK: Trachea midline. No JVD or lymphadenopathy. Supple, nontender, no meningeal signs. CARDIOVASCULAR: Regular rate and rhythm without murmurs, gallops, or rubs. RESPIRATORY: Clear to auscultation. Breath sounds equal bilaterally. No wheezes , rales, or rhonchi. GASTROINTESTINAL: Abdomen soft, non-tender, nondistended. No hepato-splenomegaly , or palpable masses. No guarding. MUSCULOSKELETAL: Extremities without clubbing, cyanosis, or edema. No joint tenderness, effusion, or edema noted. No calf tenderness. Negative Homans sign bilaterally. NEUROLOGICAL: Awake and alert. Cranial nerves II through XII intact. Motor and sensory grossly within normal limits. Five out of 5 muscle strength in all muscle groups. Normal speech. Laboratory Laboratory Tests Test 02/18/17 17:17 White Blood Count 11.1 Red Blood Count 4.08 Hemoglobin 13.8 Hematocrit 38.9 Mean Corpuscular Volume 95.2 Mean Corpuscular Hemoglobin 33.7 Mean Corpuscular Hemoglobin 35.4 Concent Red Cell Distribution Width 12.7 Platelet Count 287 Mean Platelet Volume 8.3 Neutrophils (%) (Auto) 62.6 Lymphocytes (%) (Auto) 26.8 Monocytes (%) (Auto) 8.3 Eosinophils (%) (Auto) 1.7 Basophils (%) (Auto) 0.6 Neutrophils # (Auto) 6.9 Lymphocytes # (Auto) 3.0 Monocytes # (Auto) 0.9 Eosinophils # (Auto) 0.2 Basophils # (Auto) 0.1 CBC Comment DIFF FINAL Differential Comment Prothrombin Time 10.0 Prothromb Time International 0.9 Ratio Activated Partial 25.9 Thromboplast Time Sodium Level 133 Potassium Level 3.0 Chloride Level 98 Carbon Dioxide Level 24.3 Anion Gap 11 Blood Urea Nitrogen 20 Creatinine 1.17 Estimat Glomerular Filtration 45 Rate Random Glucose 144 Calcium Level 9.4 Magnesium Level 2.0 Total Bilirubin 0.7 Aspartate Amino Transf 25 (AST/SGOT) Alanine Aminotransferase 25 (ALT/SGPT) Alkaline Phosphatase 77 Total Creatine Kinase 56 B-Type Natriuretic Peptide 149 Total Protein 7.0 Albumin 3.7 Result Diagram: 02/18/17171602/18/17 171 Gena Jesus MD Feb 18, 2017 19:56
--- NOTE | 2017-02-18 19:57 | HHI.HP ---
[facility] Admission Diagnosis Afib with rvr Diagnoses: (1) Atrial fibrillation with RVR Diagnosis: Principal (2) Hypokalemia Diagnosis: Principal (3) Renal insufficiency Diagnosis: Principal (4) HTN (hypertension) Diagnosis: Principal Travel History International Travel<30 Days: No Contact w/Intl Traveler <30 Da: No Traveled to Known Affected Are: No History of Present Illness This is a 81-year-old female with a PMH of HTN, A. fib, Hyperlipidemia, Anxiety and Depression who was referred to the ER by Dietician, Dr. Rincon, for evaluation of A-fib. Per pt she had c/o palpitations, was seen in Dr. Rincon's office today, had Holter Monitor placed and was sent home. While at home, pt called by office and referred to ER as HR 160's. H/o A-fib s/p ablation x3, controlled for approx 3yrs now. No c/o chest pain or SOB. On arrival, BP 162/ 74, HR 138, O2 sat 98% on RA, Afebrile. WBC 11.1. K+ 3.0. Creatinine 1.17, previously 1.07 on 02/08/17. BNP 149. INR 0.9. CXR with stable left lower lung zones no acute findings. S/p Cardizem IV in ER w/ minimal improvement, started on Cardizem gtt. Review of Systems Except as stated in HPI: all other systems reviewed are Neg ROS: 14 point review of systems otherwise negative. Past Family Social History Past Medical History PMH: HTN, A. fib, Hyperlipidemia, Anxiety and Depression Past Surgical History PAST SURGICAL HISTORY: Cardiac Ablation, Hysterectomy, Bilateral Hip Replacement Allergies: Coded Allergies: Ceclor (Verified Allergy, Severe, RASH, 02/18/17) Paroxetine (Verified Allergy, Severe, 02/18/17) Sulfa (Verified Allergy, Severe, RASH, 02/18/17) Cipro (Verified Allergy, Unknown, GI UPSET, 02/18/17) Clonidine (Verified Allergy, Unknown, SKIN IRRITATION, 02/18/17) Uncoded Allergies: latex bandages (Allergy, Mild, SKIN REDNESS, RASH, 05/10/13) Family History PAST FAMILY HISTORY: Reviewed, positive for CAD. Social History PAST SOCIAL HISTORY: Negative for alcohol, tobacco or drugs. Physical Exam Vital Signs Vital Signs Date Time Temp Pulse Resp B/P Pulse Ox O2 Delivery O2 Flow Rate FiO2 02/18/17 17:17 99 Room Air 02/18/17 16:55 137 20 98 Room Air 02/18/17 16:43 97.8 138 24 162/74 98 Room Air Physical Exam PE: GENERAL: Pleasant elderly female in no acute distress. HEENT: PERRLA, EOMI. No scleral icterus or conjunctival pallor. No lid lag or facial droop. CARDIOVASCULAR: Irregularly irregular, in A. fib. No obvious murmurs to auscultation. No chest tenderness to palpation. RESPIRATORY: No obvious rhonchi or wheezing. Clear to auscultation. Breath sounds equal bilaterally. GASTROINTESTINAL: Abdomen soft, non-tender, nondistended. BS normal. MUSCULOSKELETAL: Extremities without clubbing, cyanosis. Mild edema bilaterally. No obvious deformities. NEUROLOGICAL: Awake, alert and oriented x4. No focal neurologic deficits. Moving both upper and lower extremities spontaneously. Laboratory Laboratory Tests Test 02/18/17 17:17 White Blood Count 11.1 Red Blood Count 4.08 Hemoglobin 13.8 Hematocrit 38.9 Mean Corpuscular Volume 95.2 Mean Corpuscular Hemoglobin 33.7 Mean Corpuscular Hemoglobin 35.4 Concent Red Cell Distribution Width 12.7 Platelet Count 287 Mean Platelet Volume 8.3 Neutrophils (%) (Auto) 62.6 Lymphocytes (%) (Auto) 26.8 Monocytes (%) (Auto) 8.3 Eosinophils (%) (Auto) 1.7 Basophils (%) (Auto) 0.6 Neutrophils # (Auto) 6.9 Lymphocytes # (Auto) 3.0 Monocytes # (Auto) 0.9 Eosinophils # (Auto) 0.2 Basophils # (Auto) 0.1 CBC Comment DIFF FINAL Differential Comment Prothrombin Time 10.0 Prothromb Time International 0.9 Ratio Activated Partial 25.9 Thromboplast Time Sodium Level 133 Potassium Level 3.0 Chloride Level 98 Carbon Dioxide Level 24.3 Anion Gap 11 Blood Urea Nitrogen 20 Creatinine 1.17 Estimat Glomerular Filtration 45 Rate Random Glucose 144 Calcium Level 9.4 Magnesium Level 2.0 Total Bilirubin 0.7 Aspartate Amino Transf 25 (AST/SGOT) Alanine Aminotransferase 25 (ALT/SGPT) Alkaline Phosphatase 77 Total Creatine Kinase 56 B-Type Natriuretic Peptide 149 Total Protein 7.0 Albumin 3.7 Result Diagram: 02/18/17171602/18/171716 Assessment and Plan Problem List: (1) Atrial fibrillation with RVR ICD Code: I48.91 Status: Acute (2) Hypokalemia ICD Code: E87.6 Status: Acute (3) Renal insufficiency ICD Code: N28.9 Status: Resolved (4) HTN (hypertension) ICD Code: I10 Status: Acute Assessment and Plan A/P: 1. A-fib w/ RVR: h/o A-fib s/p ablation x3, controlled for approx 3yrs, now w / recurrence. HR 140's on arrival, s/p Cardizem IV x1 w/ minimal relief, started on Cardizem gtt, now controlled. Follows w/ Dr. Rincon as outpatient, will consult for further evaluation. 2. Hypokalemia: K+ 3.0, s/p replacement, will recheck and replace as needed. 3. Renal Insufficiency: Acute on Chronic. Creatinine 1.17, previously 1.07 on 02/08/17. U/a negative. IVF for hydration, repeat labs in am. 4. HTN: BP 160's on arrival, currently 130's, will monitor. 5. DVT Prophylaxis: Heparin sq 6. Social work for d/c planning as needed. 7. Case discussed w/ ER physician at length. Physician Certification 2 Midnight Certification Type: Admission for Inpatient Services Order for Inpatient Services The services are ordered in accordance with Medicare regulations or non- Medicare payer requirements, as applicable. In the case of services not specified as inpatient-only, they are appropriately provided as inpatient services in accordance with the 2-midnight benchmark. Estimated LOS (days): 2 days is the estimated time the patient will need to remain in the hospital, assuming treatment plan goals are met and no additional complications. Post-Hospital Plan: Not yet determined Gena Jesus MD Feb 18, 2017 19:57
[2017-02-18] MEDS ORDERED: ONDANSETRON HCL 4 MG/2 ML VIAL IVP PRN (20:00)
[2017-02-18] MEDS ORDERED: ACETAMINOPHEN 325 MG TAB PO PRN (20:00)
[2017-02-18] MEDS ORDERED: MORPHINE SULFATE 4 MG/ML INJ IV PRN (20:00)
[2017-02-18] MEDS ORDERED: BISACODYL 10 MG SUPP RECTAL PRN (20:00)
[2017-02-18] MEDS ORDERED: SENNOSIDES 8.6 MG TAB PO PRN (20:00)
[2017-02-18] MEDS ORDERED: SODIUM CHLORIDE 0.9% FLUSH 10 ML FLUSH IV FLUSH PRN (20:00)
[2017-02-18] MEDS ORDERED: ACETAMINOPHEN/HYDROcodone 325 MG/5 MG TAB PO PRN (20:00)
[2017-02-18] MEDS ORDERED: MAGNESIUM HYDROXIDE SUSP 30 ML CUP PO PRN (20:00)
[2017-02-18] MEDS ORDERED: LACTULOSE SYRUP 20 GM/30 ML CUP PO PRN (20:00)
[2017-02-18 20:30] VITALS: BP 136/83; PULSE 124; RESP 24
[2017-02-18 20:32] VITALS: BP_SYST 136
[2017-02-18 21:00] VITALS: BP 132/79; PULSE 133; RESP 24; O2SAT 97
[2017-02-18] MEDS: METOPROLOL TARTRATE 50 MG TAB PO SCH (21:00)
[2017-02-18] MEDS: SODIUM CHLORIDE 0.9% FLUSH 10 ML FLUSH IV FLUSH SCH (21:00)
[2017-02-18] MEDS ORDERED: DOCUSATE SODIUM 50 MG/SENNA 8.6 MG TAB PO SCH (21:00)
[2017-02-18] MEDS: ALPRAZolam 0.25 MG TAB PO PRN (21:16)
[2017-02-18] MEDS: SODIUM CHLOR 0.9% 1000 ML INJ 1,000 ML IV SCH (21:56)
[2017-02-18 22:22] VITALS: BP 132/77
[2017-02-19] VITALS (18 sets, daily range): BP systolic 109–142; BP diastolic 59–79; PULSE 54–114; RESP 18–20; TEMP 97.3–97.9; O2SAT 96–99
[2017-02-19] MEDS: SODIUM CHLOR 0.9% 1000 ML INJ 1,000 ML IV SCH (05:50)
[2017-02-19 06:08] LABS: AUTOMATED NEUTROPHIL # 4.7 TH/MM3 (1.8-7.7); BASOPHIL # 0.1 TH/MM3 (0-0.2); BASOPHIL % 0.7 % (0.0-2.0); EOSINOPHIL # 0.1 TH/MM3 (0-0.4); EOSINOPHIL % 1.4 % (0.0-4.0); HEMATOCRIT 37.3 % (35.0-46.0); HEMO FLAGS DIFF FINAL; LYMPH % 26.4 % (9.0-44.0); MEAN CELL VOLUME 95.3 FL (80.0-100.0); MEAN CORPUSCULAR HEMOGLOBIN 32.9 PG (27.0-34.0); MEAN CORPUSCULAR HGB CONC 34.5 % (32.0-36.0); MONO % 11.1 % (0.0-8.0); NEUT % 60.4 % (16.0-70.0); PLATELET COUNT 271 TH/MM3 (150-450); RED BLOOD COUNT 3.91 MIL/MM3 (4.00-5.30); RED CELL DISTRIBUTION WIDTH 12.9 % (11.6-17.2); WHITE BLOOD COUNT 7.7 TH/MM3 (4.0-11.0)
[2017-02-19 06:46] LABS: ALKALINE PHOSPHATASE 65 U/L (45-117); ALT (GPT) 20 U/L (10-53); ANION GAP 8 MEQ/L (5-15); AST (GOT) 14 U/L (15-37); BICARBONATE 25.5 MEQ/L (21.0-32.0); BLOOD UREA NITROGEN 18 MG/DL (7-18); CHLORIDE 105 MEQ/L (98-107); GLOMERULAR FILTRATION RATE 64 ML/MIN (>89); POTASSIUM 3.3 MEQ/L (3.5-5.1); SODIUM (NA) 138 MEQ/L (136-145); TOTAL BILIRUBIN ADULT 0.6 MG/DL (0.2-1.0)
[2017-02-19] MEDS ORDERED: MULTIVITAMINS/MINERALS THERAPEUTIC TAB PO SCH (09:00)
[2017-02-19] MEDS: HEPARIN SODIUM - SQ 10,000 UNITS/ML VIAL SQ SCH ×2 (09:00→09:51)
[2017-02-19] MEDS ORDERED: PRAVASTATIN SOD 20 MG TAB PO SCH (09:00)
[2017-02-19] MEDS: METOPROLOL TARTRATE 50 MG TAB PO SCH (09:50)
[2017-02-19] MEDS: SODIUM CHLORIDE 0.9% FLUSH 10 ML FLUSH IV FLUSH SCH (09:51)
[2017-02-19] MEDS: ALPRAZolam 0.25 MG TAB PO PRN (09:57)
[2017-02-19] MEDS ORDERED: POTASSIUM CHLORIDE 25 MEQ EFFERVESCENT TAB PO ONE (11:15)
--- NOTE | 2017-02-19 11:51 | EKG ---
Date Performed: 02/18/2017 Time Performed: 17:01:43 PTAGE: 81 years EKG: ATRIAL FIBRILLATION WITH RAPID VENTRICULAR RESPONSE NONSPECIFIC ST & T-WAVE ABNORMALITY ABN ORMAL RHYTHM ECG PREVIOUS TRACING : 02/08/2017 23.58 Compared to the prior study, atrial fibrillation with nonsp ecific T-wave changes are new. DOCTOR: Robert Lopez Interpretating Date/Time 02/19/2017 11:49:12
[2017-02-19] MEDS ORDERED: LIOTHYRONINE SODIUM 5 MCG TAB PO SCH (12:00)
--- NOTE | 2017-02-19 12:59 | HHI.PR ---
Subjective Remarks Follow up atrial fibrillation RVR. Patient seen and examined, lying in bed comfortably. Denies any chest pain or palpitations. Eating well. Wants to go home, explained to patient the need for cardiology to see patient. Cardiac tele reviewed showing NSR HR in the 60's. Afebrile. Denies any recent fever, chills, cough, shortness of breath, abdominal pain, nausea, vomiting or diarrhea. Objective Vitals Vital Signs Date Time Temp Pulse Resp B/P Pulse Ox O2 Delivery O2 Flow Rate FiO2 02/19/17 12:51 69 02/19/17 11:53 97.6 60 20 109/59 97 02/19/17 11:53 60 02/19/17 10:20 65 02/19/17 09:56 64 02/19/17 08:26 64 02/19/17 07:36 63 02/19/17 07:36 97.3 76 20 113/75 96 02/19/17 06:00 80 02/19/17 05:00 114 02/19/17 05:00 97.9 71 18 126/67 96 02/19/17 04:00 65 02/19/17 03:00 60 02/19/17 02:00 54 02/19/17 02:00 97.3 72 18 142/79 96 02/19/17 01:00 58 02/19/17 00:00 68 02/18/17 22:22 69 16 132/77 100 02/18/17 21:00 133 24 132/79 97 Room Air 02/18/17 20:32 136/ 02/18/17 20:30 124 24 136/83 Room Air 02/18/17 17:17 99 Room Air 02/18/17 16:55 137 20 98 Room Air 02/18/17 16:43 97.8 138 24 162/74 98 Room Air I/O 02/18/17 02/18/17 02/18/17 02/19/17 02/19/17 02/19/17 07:00 15:00 23:00 07:00 15:00 23:00 Intake Total 270 ml Output Total 0 ml Balance 270 ml Intake Oral 240 ml IV Total 30 ml Output Urine Total 0 ml Result Diagram: 02/19/17 0544 02/19/17 0544 Imaging Last Impressions Chest X-Ray 02/18/17 6671 Signed Impressions: Service Date/Time: February 17:21 - CONCLUSION: 1. Stable left lower lung zone atelectasis versus scarring. 2. No acute abnormality or significant interval change. Nando Bass MD Objective Remarks GENERAL: Well-nourished, well-developed female patient lying in bed comfortably in nad. SKIN: Warm and dry. No rash. HEENT: Atraumatic. Normocephalic. Pupils equal and round. No scleral icterus. No injection or drainage. No nasal bleeding or discharge. Mucous membranes pink and moist. NECK: Trachea midline. No JVD. CARDIOVASCULAR: Regular rate and rhythm. Converted to NSR from a fib RVR. RESPIRATORY: No accessory muscle use. Clear to auscultation. Breath sounds equal bilaterally. GASTROINTESTINAL: Abdomen soft, non-tender, nondistended. Hepatic and splenic margins not palpable. MUSCULOSKELETAL: Extremities without clubbing, cyanosis, or edema. No obvious deformities. NEUROLOGICAL: Awake and alert. No obvious cranial nerve deficits. Motor grossly within normal limits. Five out of 5 muscle strength in the arms and legs. Normal speech. PSYCHIATRIC: Appropriate mood and affect; insight and judgment normal. A/P Problem List: (1) Atrial fibrillation with RVR ICD Code: I48.91 Status: Acute (2) Hypokalemia ICD Code: E87.6 Status: Acute (3) Renal insufficiency ICD Code: N28.9 Status: Resolved (4) HTN (hypertension) ICD Code: I10 Status: Acute Assessment and Plan 1. A-fib w/ RVR, resvoled: Now NSR on monitor. h/o A-fib s/p ablation x3, controlled for approx 3yrs, now w/ recurrence. HR 140's on arrival, s/p Cardizem IV x1 in ED, Cardizem gtt currently now controlled. Follows w/ Dr. Rincon as outpatient, consulted, awaiting additional input and appreciated recommendations. Will stop Cardizem gtt and start low dose Cardizem PO. Monitor on tele. Continued Metoprolol. 2. Hypokalemia: K+ 3.3 today. Replaced. Recheck BMP in am. 3. Renal Insufficiency: Acute on Chronic. Resolved. Creatinine 1.17 --> 0.86. U/a negative. Will stop IVF, tolerating PO intake. BP stable. 4. HTN: BP 160's on arrival, more controlled currently. 5. Dyslipidemia: Continue home statin. 6. Hypothyroidism: Continue home Liothyronine sodium 5 mg PO daily. 7. DVT Prophylaxis: Heparin sq Attending Statement Attestation Patient seen and examined with CHRIS Martinez. The exam, history, and the medical decision-making described in the above note were completed with the assistance of the dictating practitioner. I attest that I had a [id number] encounter with the patient on the same day, and personally performed all of the history, exam, or medical decision making. Discussed case with her thoroughly after seeing the patient, reviewed and agreed with the plan. Please see addendum in History, Physical examination. See below for any errata/additional input: Agreed above, patient feels good. Heart rate now controlled. No chest pain, palpitations or shortness of breath Not in distress Either rhythm Occasional crackles at bases Trace edema Discussed with riaz Moscoso for discharge, cleared for discharge by him. He suspects that the patient is not compliant with her medications. He agreed with starting Cardizem, switch to long-acting at 120 mg daily, prescription was given. Follow-up with Dr. Nelson in one week Discharge patient to home Condition on discharge: Improved Regular Diet as tolerated Ad Allie activity Rx written: Cardizem 120 mg daily Cardiology in one week Patti Roach Feb 19, 2017 12:58 Hamzah Treadwell MD Feb 19, 2017 16:05
[2017-02-19] MEDS ORDERED: DILTIAZEM HCL 30 MG TAB PO SCH (13:15)
[2017-02-19] MEDS ORDERED: CARD120C4 PO (16:03)
== END 2017-02-19 17:17 | disposition home or self-care (01) | DRG 310 ==
LOC: NEPD 16:39 → NEDA 19:54 → HCIS 22:32
PROVIDERS: ADMIT Hospitalist; ATTEND Hospitalist
DX: I48.91 Unspecified atrial fibrillation (principal); I12.9 Hypertensive chronic kidney disease with stage 1 through stage 4 chronic kidney disease, or unspecified chronic kidney disease; N18.9 Chronic kidney disease, unspecified; E87.6 Hypokalemia; N28.9 Disorder of kidney and ureter, unspecified; E78.5 Hyperlipidemia, unspecified; E03.9 Hypothyroidism, unspecified; F32.9 Major depressive disorder, single episode, unspecified; F41.9 Anxiety disorder, unspecified; Z96.643 Presence of artificial hip joint, bilateral
CPT/HCPCS: 71010; 80053; 82550; 83735; 83880; 85025; 85610; 85730; 93005; 96361; 96374; J1644; J7030; J7040

== ENCOUNTER 2017-03-09 21:00 | Emergency (ER) | payer MEDICARE, BC ==
[~2017-03-09] VITALS: Ht 162.6 cm; Wt 70.0 kg
[~2017-03-09 21:00] MED LIST changes: +CARD120C4 PO; +ESTR0.02 T-DERMAL; -ESTR0.5T PO
[2017-03-09 21:06] VITALS: BP 138/66; PULSE 118; RESP 18; TEMP 97.6; O2SAT 96
--- NOTE | 2017-03-09 21:24 | PD ---
HPI Chief Complaint: Chest Pain Time Seen by Provider: 21:20 Travel History International Travel<30 days: No Contact w/Intl Traveler<30days: No Traveled to known affect area: No History of Present Illness HPI 72-year-old female with history of A. fib, followed by Dr. Rincon, presents to the emergency department for evaluation palpitations. Patient states she has had this in the past with her A. fib and has come to the ER for evaluation. Patient states around 8:30 this evening she was sitting watching television when she noticed her heart rate increase. She is not having shortness of breath or pain associated with this. She was unable to get hold of her bed operator so she contacted her primary care provider's office if I she come to emergency department. Patient states that she has started no new medications. She has had 3 ablations in the past for her A. fib. She has been taking her medication as prescribed. She took her metoprolol this evening as she always does. She states he only thing new is she has, so removed from her right distal lower extremity today. Currently she has no symptoms to report. PFSH Past Medical History Hx Anticoagulant Therapy: Yes Arthritis: Yes (lower back) Asthma: No Atrial Fibrillation: Yes Autoimmune Disease: No Blood Disorders: No Anxiety: Yes Depression: Yes Heart Rhythm Problems: Yes (afib) Cancer: Yes (skin, left thigh and nose (removed)) Cardiac Catheterization: No Cardiovascular Problems: Yes High Cholesterol: Yes (controlled) Chemotherapy: No Chest Pain: No Congestive Heart Failure: No COPD: No Cerebrovascular Accident: No Diabetes: No Diminished Hearing: No Endocrine: No Gastrointestinal Disorders: No GERD: No Glaucoma: No Genitourinary: No Headaches: No Hepatitis: No Hiatal Hernia: No Heparin Induced Thrombocytopen: No Hypertension: Yes Immune Disorder: No Implanted Vascular Access Dvce: Yes Kidney Stones: No Musculoskeletal: Yes (DIFFICULTY WALKING R/T HIP SURGERIES) Neurologic: No Psychiatric: Yes Reproductive: No Respiratory: No Immunizations Current: Yes Migraines: No Myocardial Infarction: No Radiation Therapy: No Renal Failure: No Seizures: No Sickle Cell Disease: No Sleep Apnea: No Thyroid Disease: Yes Ulcer: No PNEUMOCCOCAL Vaccine (Year): 3 ?: Not Menopausal: Yes : 2 Para: 1 Past Surgical History Abdominal Surgery: No AICD: No Appendectomy: No Arteriovenous Shunt: No Cardiac Surgery: Yes (ablation x3) Cholecystectomy: No Coronary Artery Bypass Graft: No Ear Surgery: No Endocrine Surgery: No Eye Surgery: No Genitourinary Surgery: No Gynecologic Surgery: Yes (hysterectomy) Hysterectomy: Yes Insulin Pump: No Joint Replacement: Yes (bilat hip) Neurologic Surgery: No Oral Surgery: No Pacemaker: No Thoracic Surgery: No Other Surgery: Yes Social History Alcohol Use: No Tobacco Use: No (quit at 27 years of age) Substance Use: No Allergies-Medications (Allergen,Severity, Reaction): Coded Allergies: Sulfa (Sulfonamide Antibiotics) (Unverified Allergy, Severe, RASH, 03/02/17 ) cefaclor (Unverified Allergy, Severe, RASH, 03/02/17) paroxetine (Unverified Allergy, Severe, 03/02/17) ciprofloxacin (Unverified Allergy, Unknown, GI UPSET, 03/02/17) clonidine (Unverified Allergy, Unknown, SKIN IRRITATION, 03/02/17) Uncoded Allergies: latex bandages (Allergy, Mild, SKIN REDNESS, RASH, 05/10/13) Reported Meds & Prescriptions Reported Meds & Active Scripts Active Cardizem CD 24 HR (Diltiazem CD 24 HR) 120 Mg Caper 120 Mg PO DAILY Reported Estradiol Patch 168 HR (Estradiol) 0.025 Mg/24 Hr Patch 1 Patch T-DERMAL Q7D Remove old patch and discard when new patch being placed. Senna Plus 8.6-50 mg (Sennosides-Docusate Sodium) 1 Tab Tab 1 Tab PO DAILY Centrum (Multiple Vitamins W/ Minerals) 1 Chew 1 Tab CHEW DAILY Vitamin D3 (Cholecalciferol) 1,000 Unit Cap 1,000 Units PO DAILY Hydrochlorothiazide 25 Mg Tab 25 Mg PO DAILY Liothyronine (Liothyronine Sodium) 5 Mcg Tab 5 Mcg PO DAILY Amlodipine (Amlodipine Besylate) 10 Mg Tab 10 Mg PO DAILY Lovastatin 20 Mg Tab 20 Mg PO DAILY Metoprolol Tartrate 50 Mg Tab 50 Mg PO BID Ramipril 10 Mg Cap 10 Mg PO BID Alprazolam 0.25 Mg Tab 0.25 Mg PO Q6H PRN Review of Systems Except as stated in HPI: all other systems reviewed are Neg Physical Exam Narrative GENERAL: Well-nourished female patient, in no acute distress SKIN: Focused skin assessment warm/dry. Pressure dressing right distal lower extremity. HEAD: Atraumatic. Normocephalic. EYES: Pupils equal and round. No scleral icterus. No injection or drainage. ENT: No nasal bleeding or discharge. Mucous membranes pink and moist. NECK: Trachea midline. No JVD. CARDIOVASCULAR: Elevated rate and irregular rhythm. RESPIRATORY: No accessory muscle use. Clear to auscultation. Breath sounds equal bilaterally. GASTROINTESTINAL: Abdomen soft, non-tender, nondistended. Hepatic and splenic margins not palpable. MUSCULOSKELETAL: No obvious deformities. No clubbing. No cyanosis. Mild edema bilateral distal lower extremities. NEUROLOGICAL: Awake and alert. No obvious cranial nerve deficits. Motor grossly within normal limits. Normal speech. PSYCHIATRIC: Appropriate mood and affect; insight and judgment normal. Data Data Last Documented VS Vital Signs Date Time Temp Pulse Resp B/P (MAP) Pulse Ox O2 Delivery O2 Flow Rate FiO2 03/09/17 21:34 92 12 133/83 (100) 98 Room Air 03/09/17 21:06 97.6 Orders Orders Electrocardiogram (03/09/17 21:23) Basic Metabolic Panel (Bmp) (03/09/17 21:23) Complete Blood Count With Diff (03/09/17 21:23) Magnesium (Mg) (03/09/17 21:23) Prothrombin Time / Inr (Pt) (03/09/17 21:23) Act Partial Throm Time (Ptt) (03/09/17 21:23) Chest, Single Ap (03/09/17 21:23) Ecg Monitoring (03/09/17 21:23) Bilateral Bp Monitoring (03/09/17 21:23) Iv Access Insert/Monitor (03/09/17 21:23) Oximetry (03/09/17 21:23) Oxygen Administration (03/09/17 21:23) Sodium Chloride 0.9% Flush (Ns Flush) (03/09/17 21:30) Labs Laboratory Tests Test 03/09/17 21:30 03/09/17 21:35 White Blood Count 8.6 TH/MM3 Red Blood Count 4.30 MIL/MM3 Hemoglobin 14.1 GM/DL Hematocrit 40.7 % Mean Corpuscular Volume 94.8 FL Mean Corpuscular Hemoglobin 32.7 PG Mean Corpuscular Hemoglobin Concent 34.5 % Red Cell Distribution Width 12.8 % Platelet Count 286 TH/MM3 Mean Platelet Volume 8.1 FL Neutrophils (%) (Auto) 55.0 % Lymphocytes (%) (Auto) 31.5 % Monocytes (%) (Auto) 10.7 % Eosinophils (%) (Auto) 2.0 % Basophils (%) (Auto) 0.8 % Neutrophils # (Auto) 4.7 TH/MM3 Lymphocytes # (Auto) 2.7 TH/MM3 Monocytes # (Auto) 0.9 TH/MM3 Eosinophils # (Auto) 0.2 TH/MM3 Basophils # (Auto) 0.1 TH/MM3 CBC Comment DIFF FINAL Differential Comment Prothrombin Time 9.8 SEC Prothromb Time International Ratio 0.9 RATIO Activated Partial Thromboplast Time 25.7 SEC Blood Urea Nitrogen 21 MG/DL Creatinine 1.10 MG/DL Random Glucose 122 MG/DL Calcium Level 9.4 MG/DL Magnesium Level 2.0 MG/DL Sodium Level 134 MEQ/L Potassium Level 3.4 MEQ/L Chloride Level 100 MEQ/L Carbon Dioxide Level 23.9 MEQ/L Anion Gap 10 MEQ/L Estimat Glomerular Filtration Rate 48 ML/MIN MDM Medical Decision Making Medical Screen Exam Complete: Yes Emergency Medical Condition: Yes Medical Record Reviewed: Yes Differential Diagnosis Palpitations versus electrolyte abnormality versus A. fib versus A. fib with RVR versus UTI versus normal exam Narrative Course 81 year-old female presents to emergency room for evaluation of palpitations. Patient appears without distress. She is currently not having any symptoms. EKG shows A. fib with rate 102. No additional ectopy. Laboratory Tests Test 03/09/17 21:30 03/09/17 21:35 White Blood Count 8.6 TH/MM3 Red Blood Count 4.30 MIL/MM3 Hemoglobin 14.1 GM/DL Hematocrit 40.7 % Mean Corpuscular Volume 94.8 FL Mean Corpuscular Hemoglobin 32.7 PG Mean Corpuscular Hemoglobin Concent 34.5 % Red Cell Distribution Width 12.8 % Platelet Count 286 TH/MM3 Mean Platelet Volume 8.1 FL Neutrophils (%) (Auto) 55.0 % Lymphocytes (%) (Auto) 31.5 % Monocytes (%) (Auto) 10.7 % Eosinophils (%) (Auto) 2.0 % Basophils (%) (Auto) 0.8 % Neutrophils # (Auto) 4.7 TH/MM3 Lymphocytes # (Auto) 2.7 TH/MM3 Monocytes # (Auto) 0.9 TH/MM3 Eosinophils # (Auto) 0.2 TH/MM3 Basophils # (Auto) 0.1 TH/MM3 CBC Comment DIFF FINAL Differential Comment Prothrombin Time 9.8 SEC Prothromb Time International Ratio 0.9 RATIO Activated Partial Thromboplast Time 25.7 SEC Blood Urea Nitrogen 21 MG/DL Creatinine 1.10 MG/DL Random Glucose 122 MG/DL Calcium Level 9.4 MG/DL Magnesium Level 2.0 MG/DL Sodium Level 134 MEQ/L Potassium Level 3.4 MEQ/L Chloride Level 100 MEQ/L Carbon Dioxide Level 23.9 MEQ/L Anion Gap 10 MEQ/L Estimat Glomerular Filtration Rate 48 ML/MIN Lab work is consistent with most recent lab work drawn here in the emergency department. I discussed the patient's my attending physician Dr. Cruz. Patient will be discharged at this time to follow-up with her bed operator and primary care provider. Patient is concerned that she might feel the palpitations again. I explained with A. fib it typically has an irregular rhythm but as long as the rate is controlled and she is not having any symptoms that she is stable to be discharged. Patient has an appointment with Dr. Rincon next week. She agrees to return immediately with any acute worsening symptoms. Diagnosis Primary Impression: Palpitations Additional Impression: Atrial fibrillation Qualified Codes: I48.91 - Unspecified atrial fibrillation Referrals: Kin Rincon MD Primary Care Physician Patient Instructions: A-fib (Atrial Fibrillation) (ED), General Instructions Additional Instructions: Follow-up with her primary care provider Follow-up with bed operator Return immediately with any acute worsening symptoms Med/Other Pt SpecificInfo: No Change to Meds Disposition: 01 DISCHARGE HOME Condition: Stable China Guardado CHRIS Mar 09, 2017 21:24
[2017-03-09] MEDS ORDERED: SODIUM CHLORIDE 0.9% FLUSH 10 ML FLUSH IVF PRN (21:30)
[2017-03-09 21:34] VITALS: BP 133/83; PULSE 92; RESP 12; O2SAT 98
--- NOTE | 2017-03-09 22:10 | RADRPT ---
EXAM DATE/TIME: 03/09/2017 21:37 [facility] COMPARISON: CHEST SINGLE AP, February 18, 2017, 17:21. INDICATIONS : Palpitations. MEDICAL HISTORY : Hypertension. Hypercholesterolemia. A-fib. SURGICAL HISTORY : None. ENCOUNTER: Initial ACUITY: 1 day PAIN SCORE: 0/10 LOCATION: Bilateral chest FINDINGS: Portable AP view of the chest demonstrates a normal-sized cardiac silhouette. No effusion, consolidat ion, or pneumothorax is visualized. The bones and soft tissues demonstrate no acute abnormality. Lung s are underinflated with atelectasis at the bases. CONCLUSION: Underinflation with atelectasis at the bases. Otherwise, no acute finding is identified. Lyndon Jeong MD on March 09, 2017 at 22:08 Board Certified Radiologist. This report was verified electronically.
[2017-03-09 22:34] LABS: AUTOMATED NEUTROPHIL # 4.7 TH/MM3 (1.8-7.7); BASOPHIL # 0.1 TH/MM3 (0-0.2); BASOPHIL % 0.8 % (0.0-2.0); EOSINOPHIL # 0.2 TH/MM3 (0-0.4); HEMATOCRIT 40.7 % (35.0-46.0); HEMO FLAGS DIFF FINAL; LYMPH % 31.5 % (9.0-44.0); LYMPHOCYTE # 2.7 TH/MM3 (1.0-4.8); MEAN CELL VOLUME 94.8 FL (80.0-100.0); MEAN CORPUSCULAR HEMOGLOBIN 32.7 PG (27.0-34.0); MEAN CORPUSCULAR HGB CONC 34.5 % (32.0-36.0); MONO % 10.7 % (0.0-8.0); PLATELET COUNT 286 TH/MM3 (150-450); RED CELL DISTRIBUTION WIDTH 12.8 % (11.6-17.2); WHITE BLOOD COUNT 8.6 TH/MM3 (4.0-11.0)
[2017-03-09 22:43] LABS: APTT (PATIENT) 25.7 SEC (24.3-30.1); INTERNATIONAL NORMALIZED RATIO 0.9 RATIO; PROTHROMBIN TIME - PATIENT 9.8 SEC (9.8-11.6)
[2017-03-09 22:52] LABS: BICARBONATE 23.9 MEQ/L (21.0-32.0); POTASSIUM 3.4 MEQ/L (3.5-5.1)
--- NOTE | 2017-03-10 19:45 | EKG ---
Date Performed: 03/09/2017 Time Performed: 21:15:47 PTAGE: 81 years EKG: ATRIAL FIBRILLATION WITH RAPID VENTRICULAR RESPONSE NONSPECIFIC ST & T-WAVE ABNORMALITY ABN ORMAL RHYTHM ECG PREVIOUS TRACING : 02/18/2017 17.01 Compared to prior tracing no significant change DOCTOR: Luciana Pollard Interpretating Date/Time 03/10/2017 19:44:06
== END 2017-03-09 23:30 | disposition home or self-care (01) ==
LOC: NEPE 21:00
DX: I48.91 Unspecified atrial fibrillation (principal); I10 Essential (primary) hypertension; E78.00 Pure hypercholesterolemia, unspecified; Z79.01 Long term (current) use of anticoagulants
CPT/HCPCS: 71010; 80048; 83735; 85025; 85610; 85730; 93005; 99285

== ENCOUNTER 2017-04-19 05:13 | Inpatient (IN) | payer MEDICARE, BC ==
[2017-04-19] VITALS (15 sets, daily range): BP systolic 147–216; BP diastolic 74–107; PULSE 60–122; RESP 16–18; TEMP 97.4–97.7; O2SAT 94–98
[~2017-04-19] VITALS: Ht 162.6 cm; Wt 68.0 kg
[2017-04-19] MEDS ORDERED: APIX5TAB PO ×2 (05:35→07:38)
[2017-04-19] MEDS ORDERED: DILTIAZEM HCL 25 MG/5 ML VIAL IV ONE ×2 (05:45→06:45)
[2017-04-19] MEDS ORDERED: SODIUM CHLORIDE 0.9% FLUSH 10 ML FLUSH IVF PRN (05:45)
--- NOTE | 2017-04-19 06:07 | PD ---
HPI Chief Complaint: Chest Pain Time Seen by Provider: 05:32 Travel History International Travel<30 days: No Contact w/Intl Traveler<30days: No Traveled to known affect area: No History of Present Illness HPI 81-year-old female presents to the emergency department for complaint of atrial fibrillation with rapid rate. Patient has associated shortness of breath. Patient reports she frequently has to come to the hospital to have medication administered to slow her rate. Patient is on the care of Dr. Rincon. Patient is not taken her morning dose of medication for rate control as she typically takes it at 8 AM. Patient states she attempted Valsalva maneuvers and vagal maneuvers at home without relief of symptoms. Patient has no associated shortness breath sweats nausea vomiting or referred neck jaw back shoulder arm pain. Patient states she becomes very concerned with her heart rate increases because she gets elevated blood pressure. Patient is on Eliquis. No recent fever or respiratory illness. PFSH Past Medical History Narrative Medical atrial fibrillation dyslipidemia hypertension cardiac ablation hip replacement and hysterectomy no tobacco use nursing notes reviewed Hx Anticoagulant Therapy: Yes Arthritis: Yes (lower back) Asthma: No Atrial Fibrillation: Yes Autoimmune Disease: No Blood Disorders: No Anxiety: Yes Depression: Yes Heart Rhythm Problems: Yes (afib) Cancer: Yes (skin, left thigh and nose (removed)) Cardiac Catheterization: No Cardiovascular Problems: Yes High Cholesterol: Yes (controlled) Chemotherapy: No Chest Pain: No Congestive Heart Failure: No COPD: No Cerebrovascular Accident: No Diabetes: No Diminished Hearing: No Endocrine: No Gastrointestinal Disorders: No GERD: No Glaucoma: No Genitourinary: No Headaches: No Hepatitis: No Hiatal Hernia: No Heparin Induced Thrombocytopen: No Hypertension: Yes Immune Disorder: No Implanted Vascular Access Dvce: Yes Kidney Stones: No Musculoskeletal: Yes (DIFFICULTY WALKING R/T HIP SURGERIES) Neurologic: No Psychiatric: Yes Reproductive: No Respiratory: No Immunizations Current: Yes Migraines: No Myocardial Infarction: No Radiation Therapy: No Renal Failure: No Seizures: No Sickle Cell Disease: No Sleep Apnea: No Thyroid Disease: Yes Ulcer: No Tetanus Vaccination: Unknown Influenza Vaccination: Yes PNEUMOCCOCAL Vaccine (Year): 3 Menopausal: Yes : 2 Para: 1 Past Surgical History Abdominal Surgery: No AICD: No Appendectomy: No Arteriovenous Shunt: No Cardiac Surgery: Yes (ablation x3) Cholecystectomy: No Coronary Artery Bypass Graft: No Ear Surgery: No Endocrine Surgery: No Eye Surgery: No Genitourinary Surgery: No Gynecologic Surgery: Yes (hysterectomy) Hysterectomy: Yes Insulin Pump: No Joint Replacement: Yes (bilat hip) Neurologic Surgery: No Oral Surgery: No Pacemaker: No Thoracic Surgery: No Other Surgery: Yes (Skin CA removed fro forehead and leg) Family History Family Myocardial Infarction: Yes Social History Alcohol Use: No Tobacco Use: No (quit at 27 years of age) Substance Use: No Allergies-Medications (Allergen,Severity, Reaction): Coded Allergies: Sulfa (Sulfonamide Antibiotics) (Unverified Allergy, Severe, RASH, 04/19/17 ) cefaclor (Unverified Allergy, Severe, RASH, 04/19/17) paroxetine (Unverified Allergy, Severe, 04/19/17) ciprofloxacin (Unverified Allergy, Unknown, GI UPSET, 04/19/17) clonidine (Unverified Allergy, Unknown, SKIN IRRITATION, 04/19/17) Uncoded Allergies: latex bandages (Allergy, Mild, SKIN REDNESS, RASH, 05/10/13) Reported Meds & Prescriptions Reported Meds & Active Scripts Active Reported Eliquis (Apixaban) 5 Mg Tab 5 Mg PO BID Estradiol Patch 168 HR (Estradiol) 0.025 Mg/24 Hr Patch 1 Patch T-DERMAL Q7D Remove old patch and discard when new patch being placed. Senna Plus 8.6-50 mg (Sennosides-Docusate Sodium) 1 Tab Tab 1 Tab PO DAILY Centrum (Multiple Vitamins W/ Minerals) 1 Chew 1 Tab CHEW DAILY Vitamin D3 (Cholecalciferol) 1,000 Unit Cap 1,000 Units PO DAILY Hydrochlorothiazide 25 Mg Tab 25 Mg PO DAILY Liothyronine (Liothyronine Sodium) 5 Mcg Tab 5 Mcg PO DAILY Lovastatin 20 Mg Tab 20 Mg PO DAILY Metoprolol Tartrate 50 Mg Tab 50 Mg PO BID Ramipril 10 Mg Cap 10 Mg PO BID Alprazolam 0.25 Mg Tab 0.25 Mg PO Q6H PRN Review of Systems Except as stated in HPI: all other systems reviewed are Neg General / Constitutional: No: Fever, Chills Cardiovascular: Positive: Chest Pain or Discomfort, Palpitations, Tachycardia Respiratory: No: Cough, Shortness of Breath Gastrointestinal: No: Nausea, Vomiting Genitourinary: No: Flank Pain Musculoskeletal: No: Myalgias, Arthralgias Skin: No Rash Neurologic: No: Weakness Psychiatric: Positive: Anxiety Hematologic/Lymphatic: No: Lymph Node Enlargement Physical Exam Narrative GENERAL: Well-developed well-nourished female in no acute distress no respiratory distress SKIN: Warm and dry. HEAD: Normocephalic. EYES: No scleral icterus. No injection or drainage. NECK: Supple, trachea midline. No JVD or lymphadenopathy. CARDIOVASCULAR: Increased irregular irregular rate and rhythm without murmurs, gallops, or rubs. RESPIRATORY: Breath sounds equal bilaterally. No accessory muscle use. GASTROINTESTINAL: Abdomen soft, non-tender, nondistended. MUSCULOSKELETAL: No cyanosis, or edema. BACK: Nontender without obvious deformity. No CVA tenderness. Data Data Last Documented VS Vital Signs Date Time Temp Pulse Resp B/P (MAP) Pulse Ox O2 Delivery O2 Flow Rate FiO2 04/19/17 06:07 100 Room Air 04/19/17 05:15 97.7 120 16 216/107 (143) Orders Orders Electrocardiogram (04/19/17 05:32) Basic Metabolic Panel (Bmp) (04/19/17 05:32) Ckmb (Isoenzyme) Profile (04/19/17 05:32) Complete Blood Count With Diff (04/19/17 05:32) Magnesium (Mg) (04/19/17 05:32) Prothrombin Time / Inr (Pt) (04/19/17 05:32) Act Partial Throm Time (Ptt) (04/19/17 05:32) Troponin I (04/19/17 05:32) Chest, Single Ap (04/19/17 05:32) Ecg Monitoring (04/19/17 05:32) Bilateral Bp Monitoring (04/19/17 05:32) Iv Access Insert/Monitor (04/19/17 05:32) Oximetry (04/19/17 05:32) Oxygen Administration (04/19/17 05:32) Sodium Chloride 0.9% Flush (Ns Flush) (04/19/17 05:45) Diltiazem Inj (Cardizem Inj) (04/19/17 05:45) Diltiazem Inj (Cardizem Inj) (04/19/17 06:45) Labs Laboratory Tests Test 04/19/17 06:00 White Blood Count 7.4 TH/MM3 Red Blood Count 4.43 MIL/MM3 Hemoglobin 14.4 GM/DL Hematocrit 41.3 % Mean Corpuscular Volume 93.2 FL Mean Corpuscular Hemoglobin 32.5 PG Mean Corpuscular Hemoglobin Concent 34.9 % Red Cell Distribution Width 12.9 % Platelet Count 240 TH/MM3 Mean Platelet Volume 7.7 FL Neutrophils (%) (Auto) 57.6 % Lymphocytes (%) (Auto) 28.7 % Monocytes (%) (Auto) 10.6 % Eosinophils (%) (Auto) 2.4 % Basophils (%) (Auto) 0.7 % Neutrophils # (Auto) 4.3 TH/MM3 Lymphocytes # (Auto) 2.1 TH/MM3 Monocytes # (Auto) 0.8 TH/MM3 Eosinophils # (Auto) 0.2 TH/MM3 Basophils # (Auto) 0.0 TH/MM3 CBC Comment DIFF FINAL Differential Comment Prothrombin Time 10.5 SEC Prothromb Time International Ratio 1.0 RATIO Activated Partial Thromboplast Time 27.9 SEC Blood Urea Nitrogen 27 MG/DL Creatinine 1.17 MG/DL Random Glucose 111 MG/DL Calcium Level 9.4 MG/DL Magnesium Level 2.1 MG/DL Sodium Level 135 MEQ/L Potassium Level 3.2 MEQ/L Chloride Level 99 MEQ/L Carbon Dioxide Level 27.0 MEQ/L Anion Gap 9 MEQ/L Estimat Glomerular Filtration Rate 45 ML/MIN Total Creatine Kinase 51 U/L Troponin I LESS THAN 0.02 NG/ML MDM Medical Decision Making Medical Screen Exam Complete: Yes Emergency Medical Condition: Yes Medical Record Reviewed: Yes Interpretation(s) EKG: Atrial fibrillation/flutter with rapid ventricular rate of [address]-T changes no acute ST elevation Vital Signs Date Time Temp Pulse Resp B/P (MAP) Pulse Ox O2 Delivery O2 Flow Rate FiO2 04/19/17 06:07 100 Room Air 04/19/17 05:15 97.7 120 16 216/107 (143) 98 CBC & BMP Diagram 04/19/17 06:00 Calcium Level 9.4, Magnesium Level 2.1 Differential Diagnosis Atrial fibrillation with RVR electrolyte disturbance anemia ACS [place] Narrative Course Patient placed on cupola mechanic found to be in atrial fibrillation with RVR IV access obtained patient placed on pulse oximeter; specimens collected and sent for resulting; EKG ordered; Cardizem 15 mg IV ordered for rate control @ 0700 care signed over to Dr Lancaster Diagnosis Primary Impression: Atrial fibrillation with RVR Alice Mcclain MD Apr 19, 2017 06:07
[2017-04-19 06:24] LABS: AUTOMATED NEUTROPHIL # 4.3 TH/MM3 (1.8-7.7); BASOPHIL % 0.7 % (0.0-2.0); EOSINOPHIL # 0.2 TH/MM3 (0-0.4); EOSINOPHIL % 2.4 % (0.0-4.0); HEMATOCRIT 41.3 % (35.0-46.0); HEMO FLAGS DIFF FINAL; LYMPH % 28.7 % (9.0-44.0); LYMPHOCYTE # 2.1 TH/MM3 (1.0-4.8); MEAN CELL VOLUME 93.2 FL (80.0-100.0); MEAN CORPUSCULAR HEMOGLOBIN 32.5 PG (27.0-34.0); MEAN CORPUSCULAR HGB CONC 34.9 % (32.0-36.0); MONO % 10.6 % (0.0-8.0); NEUT % 57.6 % (16.0-70.0); PLATELET COUNT 240 TH/MM3 (150-450); RED BLOOD COUNT 4.43 MIL/MM3 (4.00-5.30); RED CELL DISTRIBUTION WIDTH 12.9 % (11.6-17.2); WHITE BLOOD COUNT 7.4 TH/MM3 (4.0-11.0)
--- NOTE | 2017-04-19 06:35 | RADRPT ---
EXAM DATE/TIME: 04/19/2017 06:00 [facility] COMPARISON: CHEST SINGLE AP, March 09, 2017, 21:37. INDICATIONS : Pt states elevated BP. MEDICAL HISTORY : Hypertension. A-fib SURGICAL HISTORY : None. ENCOUNTER: Initial ACUITY: 1 day PAIN SCORE: 7/10 LOCATION: Bilateral chest FINDINGS: Trace bibasilar atelectasis noted. No pleural effusion. No pneumothorax. Heart size stable, within normal limits. CONCLUSION: Minimal bibasilar atelectasis. Lyndon Lee MD on April 19, 2017 at 6:32 Board Certified Radiologist. This report was verified electronically.
[2017-04-19 06:45] LABS: ANION GAP 9 MEQ/L (5-15); BLOOD UREA NITROGEN 27 MG/DL (7-18); CHLORIDE 99 MEQ/L (98-107); GLOMERULAR FILTRATION RATE 45 ML/MIN (>89); MAGNESIUM 2.1 MG/DL (1.5-2.5); POTASSIUM 3.2 MEQ/L (3.5-5.1); SODIUM (NA) 135 MEQ/L (136-145)
[2017-04-19 06:47] LABS: APTT (PATIENT) 27.9 SEC (24.3-30.1); PROTHROMBIN TIME - PATIENT 10.5 SEC (9.8-11.6)
[2017-04-19 06:53] LABS: CREATINE KINASE 51 U/L (26-192)
[2017-04-19] MEDS ORDERED: ALPRAZolam 0.25 MG TAB PO ONE (07:15)
--- NOTE | 2017-04-19 07:34 | PD ---
Physical Exam Narrative Received sign out from previous team to follow up labs and reevaluate patient. 81yo F with history of afib on eliquis here with c/o palpitations and generalized fatigue. Heart rate was initially in the 120s and was given cardizem 15mg IV and then cardizem 20mg IV by previous team. Labs reviewed, no leukocytosis. Mild hypokalemia at 3.2, replaced orally. Troponin negative. BUN/creatinine mildly elevated at 27/1.17 but this is her baseline. CXR showed minimal bibasilar atelectasis. Pt reevaluated at bedside and her heart rate is still fluctuating between 110s to 120s. Pt does feel better. She is suppose to take metoprolol 25mg BID and amiodarone 200mg PO daily so ordered her home medications since she did not take them today yet. Pt given her home medication but heart rate is still fluctuating in the 110s. Will start pt on cardizem drip and admit to medicine. HR is now 105-115bpm. BP is 151/79. Discussed with Dr. Rivera and accepted to his service in [facility]. Data Data Last Documented VS Vital Signs Date Time Temp Pulse Resp B/P (MAP) Pulse Ox O2 Delivery O2 Flow Rate FiO2 04/19/17 07:58 117 147/86 (106) 04/19/17 06:07 100 Room Air 04/19/17 05:15 97.7 16 Orders Orders Electrocardiogram (04/19/17 05:32) Basic Metabolic Panel (Bmp) (04/19/17 05:32) Ckmb (Isoenzyme) Profile (04/19/17 05:32) Complete Blood Count With Diff (04/19/17 05:32) Magnesium (Mg) (04/19/17 05:32) Prothrombin Time / Inr (Pt) (04/19/17 05:32) Act Partial Throm Time (Ptt) (04/19/17 05:32) Troponin I (04/19/17 05:32) Chest, Single Ap (04/19/17 05:32) Ecg Monitoring (04/19/17 05:32) Bilateral Bp Monitoring (04/19/17 05:32) Iv Access Insert/Monitor (04/19/17 05:32) Oximetry (04/19/17 05:32) Oxygen Administration (04/19/17 05:32) Sodium Chloride 0.9% Flush (Ns Flush) (04/19/17 05:45) Diltiazem Inj (Cardizem Inj) (04/19/17 05:45) Diltiazem Inj (Cardizem Inj) (04/19/17 06:45) Alprazolam (Xanax) (04/19/17 07:15) Metoprolol Tartrate (Lopressor) (04/19/17 07:45) Potassium Chloride (Kcl) (04/19/17 07:45) Amiodarone (Cordarone) (04/19/17 07:45) Vital Signs (Adult) Q4H (04/19/17 08:25) Activity Bed Rest (04/19/17 08:25) Intake + Output EVA.QSHIFT (04/19/17 08:25) Vital Signs (Adult) Q15MX4,Q4H (04/19/17 08:25) Take Out Waitress / Telemetry EVA.Q8H (04/19/17 08:25) Cardiac Rhythm EVA.Q8H (04/19/17 08:25) Notify Dr: Other (04/19/17 08:25) Diltiazem Inj (Cardizem Inj) (04/19/17 08:30) Admit Order (Ed Use Only) (04/19/17 08:41) Admit To Inpatient (04/19/17 ) Vital Signs (Adult) Q4H (04/19/17 08:41) Activity Oob With Assistance (04/19/17 08:41) Take Out Waitress / Telemetry .CONTINUOUS (04/19/17 08:41) Diet Heart Healthy (04/19/17 Breakfast) Acetaminophen (Tylenol) (04/19/17 08:45) Ondansetron Inj (Zofran Inj) (04/19/17 08:45) Basic Metabolic Panel (Bmp) (04/20/17 06:00) Complete Blood Count With Diff (04/20/17 06:00) Creatine Kinase (Cpk) (04/19/17 12:00) Creatine Kinase (Cpk) (04/19/17 18:00) Troponin I (04/19/17 12:00) Troponin I (04/19/17 18:00) Electrocardiogram (04/19/17 12:00) Electrocardiogram (04/19/17 18:00) Heparin Inj (Heparin Inj) (04/19/17 08:45) Naloxone Inj (Narcan Inj) (04/19/17 08:45) Magnesium Hydroxide Liq (Milk Of Magnesi (04/19/17 08:45) Sennosides (Senokot) (04/19/17 08:45) Bisacodyl Supp (Dulcolax Supp) (04/19/17 08:45) Lactulose Liq (Lactulose Liq) (04/19/17 08:45) Inpatient Certification (04/19/17 ) Consult Cardiology (04/19/17 ) Labs Laboratory Tests Test 04/19/17 06:00 White Blood Count 7.4 TH/MM3 Red Blood Count 4.43 MIL/MM3 Hemoglobin 14.4 GM/DL Hematocrit 41.3 % Mean Corpuscular Volume 93.2 FL Mean Corpuscular Hemoglobin 32.5 PG Mean Corpuscular Hemoglobin Concent 34.9 % Red Cell Distribution Width 12.9 % Platelet Count 240 TH/MM3 Mean Platelet Volume 7.7 FL Neutrophils (%) (Auto) 57.6 % Lymphocytes (%) (Auto) 28.7 % Monocytes (%) (Auto) 10.6 % Eosinophils (%) (Auto) 2.4 % Basophils (%) (Auto) 0.7 % Neutrophils # (Auto) 4.3 TH/MM3 Lymphocytes # (Auto) 2.1 TH/MM3 Monocytes # (Auto) 0.8 TH/MM3 Eosinophils # (Auto) 0.2 TH/MM3 Basophils # (Auto) 0.0 TH/MM3 CBC Comment DIFF FINAL Differential Comment Prothrombin Time 10.5 SEC Prothromb Time International Ratio 1.0 RATIO Activated Partial Thromboplast Time 27.9 SEC Blood Urea Nitrogen 27 MG/DL Creatinine 1.17 MG/DL Random Glucose 111 MG/DL Calcium Level 9.4 MG/DL Magnesium Level 2.1 MG/DL Sodium Level 135 MEQ/L Potassium Level 3.2 MEQ/L Chloride Level 99 MEQ/L Carbon Dioxide Level 27.0 MEQ/L Anion Gap 9 MEQ/L Estimat Glomerular Filtration Rate 45 ML/MIN Total Creatine Kinase 51 U/L Troponin I LESS THAN 0.02 NG/ML MDM Supervised Visit with [facility]: No Critical Care Narrative Aggregate critical care time was 40 minutes. Time to perform other separately billable procedures was not included in the critical care time. My time did not include minutes spent treating any other patients simultaneously or on activities that did not directly contribute to the patient's treatment. The services I provided to this patient were to treat and/or prevent clinically significant deterioration that could result in: cardiovascular collapse or . I provided critical care services requiring my management, as noted below: Chart data review, documentation time, medication orders and management, vital sign assessments/reviewing monitor data, ordering and reviewing lab tests, ordering and interpreting/reviewing x-rays and diagnostic studies, care of the patient and discussion of the patient with the admitting physicians. Diagnosis Primary Impression: Atrial fibrillation with RVR Admitting Information Admitting Physician Requests: it Gardenia Lancaster DO Apr 19, 2017 07:34
[2017-04-19] MEDS ORDERED: AMIO200T PO (07:38)
[2017-04-19] MEDS ORDERED: METO25TA3 PO (07:38)
[2017-04-19] MEDS ORDERED: AMIODARONE 200 MG TAB PO ONE (07:45)
[2017-04-19] MEDS ORDERED: POTASSIUM CHLORIDE 20 MEQ CONTROLLED RELEASE TAB PO ONE (07:45)
[2017-04-19] MEDS ORDERED: METOPROLOL TARTRATE 25 MG TAB PO ONE (07:45)
[2017-04-19] MEDS ORDERED: DILTIAZEM INJ 125 MG in SODIUM CHLORIDE 0.9% INJ 100 ML IV PRN (08:30)
[2017-04-19] MEDS ORDERED: ONDANSETRON HCL 4 MG/2 ML VIAL IVP PRN (08:45)
[2017-04-19] MEDS ORDERED: LACTULOSE SYRUP 20 GM/30 ML CUP PO PRN (08:45)
[2017-04-19] MEDS ORDERED: MAGNESIUM HYDROXIDE SUSP 30 ML CUP PO PRN (08:45)
[2017-04-19] MEDS ORDERED: ACETAMINOPHEN 325 MG TAB PO PRN (08:45)
[2017-04-19] MEDS ORDERED: SENNOSIDES 8.6 MG TAB PO PRN (08:45)
[2017-04-19] MEDS ORDERED: BISACODYL 10 MG SUPP RECTAL PRN (08:45)
[2017-04-19] MEDS ORDERED: NALOXONE HCL 0.4 MG/ML AMP IV PUSH PRN (08:45)
[2017-04-19] MEDS ORDERED: HEPARIN SODIUM - SQ 10,000 UNITS/ML VIAL SQ SCH (10:00)
--- NOTE | 2017-04-19 11:07 | HHI.HP ---
[facility] Service [facility] Primary Care Physician Champ Reyes MD Admission Diagnosis Afib RVR Diagnoses: (1) Atrial fibrillation with RVR (2) Palpitations (3) HTN (hypertension) (4) Acute on chronic renal insufficiency Chief Complaint: Atrial fibrillation Travel History International Travel<30 Days: No Contact w/Intl Traveler <30 Da: No Traveled to Known Affected Are: No History of Present Illness The patient is a 81-year-old female with known history of atrial fibrillation who presented to emergency department with complaint of palpitations and rapid heart rate. She states that she has had many such episodes in the past, always related to atrial fibrillation. She denies chest pain or dyspnea. She states that her weather strip installer changed her medications a couple months ago. Since that time she has had intermittent symptoms. Symptoms woke her from sleep this morning. She feels much better now after receiving IV diltiazem in the ER. Review of Systems Constitutional: DENIES: Fever, Chills, Night Sweats Eyes: DENIES: Blurred vision, Vision loss Ears, nose, mouth, throat: DENIES: Hearing loss Respiratory: DENIES: Cough, Wheezing, Sputum production, Shortness of breath Cardiovascular: COMPLAINS OF: Palpitations, DENIES: Chest pain, Dyspnea on Exertion, Lower Extremity Edema Gastrointestinal: DENIES: Abdominal pain, Constipation, Diarrhea, Nausea, Vomiting Genitourinary: DENIES: Urinary frequency, Urinary incontinence, Urgency, Hematuria, Dysuria, Nocturia Musculoskeletal: DENIES: Joint pain, Muscle aches Integumentary: DENIES: Pruritus, Rash Hematologic/lymphatic: DENIES: Bruising Neurologic: DENIES: Headache Past Family Social History Past Medical History Atrial fibrillation Hypertension Hyperlipidemia Anxiety/depression Past Surgical History Cardiac ablation 3 Hysterectomy Bilateral hip replacement Reported Medications Eliquis (Apixaban) 5 Mg Tab 5 Mg PO BID Estradiol Patch 168 HR (Estradiol) 0.025 Mg/24 Hr Patch 1 Patch T-DERMAL Q7D Remove old patch and discard when new patch being placed. Senna Plus 8.6-50 mg (Sennosides-Docusate Sodium) 1 Tab Tab 1 Tab PO DAILY Centrum (Multiple Vitamins W/ Minerals) 1 Chew 1 Tab CHEW DAILY Vitamin D3 (Cholecalciferol) 1,000 Unit Cap 1,000 Units PO DAILY Hydrochlorothiazide 25 Mg Tab 25 Mg PO DAILY Liothyronine (Liothyronine Sodium) 5 Mcg Tab 5 Mcg PO DAILY Lovastatin 20 Mg Tab 20 Mg PO DAILY Metoprolol Tartrate 50 Mg Tab 50 Mg PO BID Ramipril 10 Mg Cap 10 Mg PO BID Alprazolam 0.25 Mg Tab 0.25 Mg PO Q6H PRN Allergies: Coded Allergies: Sulfa (Sulfonamide Antibiotics) (Unverified Allergy, Severe, RASH, 04/19/17 ) cefaclor (Unverified Allergy, Severe, RASH, 04/19/17) paroxetine (Unverified Allergy, Severe, 04/19/17) ciprofloxacin (Unverified Allergy, Unknown, GI UPSET, 04/19/17) clonidine (Unverified Allergy, Unknown, SKIN IRRITATION, 04/19/17) Uncoded Allergies: latex bandages (Allergy, Mild, SKIN REDNESS, RASH, 05/10/13) Family History Heart disease, diabetes Social History Denies alcohol, tobacco, or illicit drug use. Physical Exam Vital Signs Vital Signs Date Time Temp Pulse Resp B/P (MAP) Pulse Ox O2 Delivery O2 Flow Rate FiO2 04/19/17 09:30 109 126/75 04/19/17 07:58 117 147/86 (106) 04/19/17 07:29 117 170/85 (113) 04/19/17 07:29 122 170/77 (108) 04/19/17 06:07 100 Room Air 04/19/17 05:15 97.7 120 16 216/107 (143) 98 Physical Exam GENERAL: Elderly female in no acute distress. HEENT: Normocephalic, atraumatic. Pupils equal, round and reactive. Extraocular movements intact. No scleral icterus. No injection or drainage. Oropharynx is clear. Mucous membranes are moist. CARDIOVASCULAR: Irregular rhythm. RESPIRATORY: Clear to auscultation. No wheezes, rales, or rhonchi. Breathing is non-labored. GASTROINTESTINAL: Abdomen soft, non-tender, nondistended. EXTREMITIES: No lower extremity edema. No calf tenderness. PSYCH: Alert and oriented x 3. Laboratory Laboratory Tests Test 04/19/17 06:00 White Blood Count 7.4 Red Blood Count 4.43 Hemoglobin 14.4 Hematocrit 41.3 Mean Corpuscular Volume 93.2 Mean Corpuscular Hemoglobin 32.5 Mean Corpuscular Hemoglobin Concent 34.9 Red Cell Distribution Width 12.9 Platelet Count 240 Mean Platelet Volume 7.7 Neutrophils (%) (Auto) 57.6 Lymphocytes (%) (Auto) 28.7 Monocytes (%) (Auto) 10.6 Eosinophils (%) (Auto) 2.4 Basophils (%) (Auto) 0.7 Neutrophils # (Auto) 4.3 Lymphocytes # (Auto) 2.1 Monocytes # (Auto) 0.8 Eosinophils # (Auto) 0.2 Basophils # (Auto) 0.0 CBC Comment DIFF FINAL Differential Comment Prothrombin Time 10.5 Prothromb Time International Ratio 1.0 Activated Partial Thromboplast Time 27.9 Blood Urea Nitrogen 27 Creatinine 1.17 Random Glucose 111 Calcium Level 9.4 Magnesium Level 2.1 Sodium Level 135 Potassium Level 3.2 Chloride Level 99 Carbon Dioxide Level 27.0 Anion Gap 9 Estimat Glomerular Filtration Rate 45 Total Creatine Kinase 51 Troponin I LESS THAN 0.02 Result Diagram: 04/19/17 0600 04/19/17 06 Caprini VTE Risk Assessment Caprini VTE Risk Assessment: Mod/High Risk (score >= 2) Caprini Risk Assessment Model Point Value = 1 Point Value = 2 Point Value = 3 Point Value = 5 Age 41-60 Minor surgery BMI > 25 kg/m2 Swollen legs Varicose veins or History of unexplained or recurrent spontaneous Oral contraceptives or hormone replacement Sepsis (< 1 month) Serious lung disease, including pneumonia (< 1 month) Abnormal pulmonary function Acute myocardial infarction Congestive heart failure (< 1 month) History of inflammatory bowel disease Medical patient at bed rest Age 61-74 Arthroscopic surgery Major open surgery (> 45 min) Laparoscopic surgery (> 45 min) Malignancy Confined to bed (> 72 hours) Immobilizing plaster cast Central venous access Age >= 75 History of VTE Family history of VTE Factor V Leiden Prothrombin [id number] Lupus anticoagulant Anticardiolipin antibodies Elevated serum homocysteine Heparin-induced thrombocytopenia Other congenital or acquired thrombophilia Stroke (< 1 month) Elective arthroplasty Hip, pelvis, or leg fracture Acute spinal cord injury (< 1 month) Prophylaxis Regimen Total Risk Factor Score Risk Level Prophylaxis Regimen 0-1 Low Early ambulation 2 Moderate Order ONE of the following: *Sequential Compression Device (SCD) *Heparin 5000 units SQ BID 3-4 Higher Order ONE of the following medications: *Heparin 5000 units SQ TID *Enoxaparin/Lovenox 40 mg SQ daily (WT < 150 kg, CrCl > 30 mL/min) *Enoxaparin/Lovenox 30 mg SQ daily (WT < 150 kg, CrCl > 10-29 mL/min) *Enoxaparin/Lovenox 30 mg SQ BID (WT < 150 kg, CrCl > 30 mL/min) AND/OR *Sequential Compression Device (SCD) 5 or more Highest Order ONE of the following medications: *Heparin 5000 units SQ TID (Preferred with Epidurals) *Enoxaparin/Lovenox 40 mg SQ daily (WT < 150 kg, CrCl > 30 mL/min) *Enoxaparin/Lovenox 30 mg SQ daily (WT < 150 kg, CrCl > 10-29 mL/min) *Enoxaparin/Lovenox 30 mg SQ BID (WT < 150 kg, CrCl > 30 mL/min) AND *Sequential Compression Device (SCD) Assessment and Plan Assessment and Plan 1. Atrial fibrillation with RVR: Given IV bolus of Cardizem 2 in the ER. Started on Cardizem drip. Heart rate improved significantly. Currently off Cardizem drip. Consult patient's weather strip installer. 2. Hypertension: Continue home medications. 3. Anxiety: Xanax as needed. 4. Acute kidney injury: IV fluids. 5. DVT prophylaxis: Apixaban. Omar Butt MD Apr 19, 2017 11:07
[2017-04-19] MEDS ORDERED: ESTRADIOL 0.025 MG/24 HR PATCH T-DERMAL SCH (12:00)
[2017-04-19] MEDS: NS + KCL 20 MEQ INJ 1,000 ML IV SCH (12:33)
[2017-04-19 16:56] LABS: CREATINE KINASE 42 U/L (26-192)
--- NOTE | 2017-04-19 19:23 | EKG ---
Date Performed: 04/19/2017 Time Performed: 05:47:56 PTAGE: 81 years EKG: ATRIAL FIBRILLATION WITH RAPID VENTRICULAR RESPONSE NONSPECIFIC ST & T-WAVE ABNORMALITY ABN ORMAL ECG PREVIOUS TRACING : 03/09/2017 21.15 Compared to prior tracing no significant change DOCTOR: Luke Degroot Interpretating Date/Time 04/19/2017 19:21:19
[2017-04-19 19:35] LABS: CREATINE KINASE 44 U/L (26-192)
[2017-04-19] MEDS ORDERED: APIXABAN 5 MG TABLET PO SCH (21:00)
[2017-04-19] MEDS: METOPROLOL TARTRATE 25 MG TAB PO SCH (21:09)
[2017-04-19] MEDS: RAMIPRIL 5 MG CAP PO SCH (21:09)
--- NOTE | 2017-04-19 23:59 | MB ---
cc: TOM VORA M.D. DATE OF CONSULTATION: 04/19/2017 REASON FOR CONSULTATION: Atrial fibrillation HISTORY OF PRESENT ILLNESS: Ms. Ferreira is a 81-year-old female with history of atrial fibrillation. She has a previous ablation around 4-5 years ago. She had multiple hospitalization in the past 6 months due to atrial fibrillation with biventricular response, despite multiple medication. She was readmitted this morning due to atrial fibrillation, heart rate was 115 beats per minute. The patient received IV Cardizem. She converted into sinus rhythm. I will was consult was sought for further evaluation and management. The chart was reviewed. The patient was evaluated. ALLERGIES SULFA CECLOR CIPRO CLONIDINE LATEX PAROXETINE SOCIAL HISTORY: Negative for smoking and drinking. FAMILY HISTORY: Noncontributory to her current medical condition. MEDICATIONS: Currently Mr. Ferreira is on Cardizem IV, acetaminophen, amiodarone 200 mg a day. She is on Eliquis, she is on estradiol, metoprolol, Cytomel, Altace. REVIEW OF SYSTEMS Currently she refers no chest pain, no chest discomfort. No palpitation. No fever. PHYSICAL EXAMINATION Alert, fully oriented. VITAL SIGNS: Her blood pressure is 168/78, pulse 66, respiratory rate 18. LUNGS: Ventilated. CARDIOVASCULAR: S1-S2. No gallop, no murmur. ABDOMEN: Soft. No masses, no bruits. EXTREMITIES: No edema. Electrocardiogram on hospitalization indicates atrial fibrillation with fast ventricular response. LABORATORY DATA: Hemoglobin is 14.4, white blood cell 7.4, potassium 3.2, creatinine 1.17, troponin less than 0.02. INR 1.0. ASSESSMENT AND RECOMMENDATIONS Ms. Ferreira has recurrent hospitalizations. She had a previous atrial fibrillation ablation around four years ago. She has been here basically on a monthly basis despite being on flecainide that was DC'd. She was put on amiodarone, Cardizem and metoprolol. Despite that, she is still having episodes. She is on Eliquis. Electrophysiology study and ablation discussed with her. The risks, the nature and the benefits of the procedure were clearly stated to her. The risks include pneumothorax, cardiac perforation, stroke and even . The patient understood and agreed to proceed. I will keep her n.p.o. after midnight for procedure tomorrow around noon. MD ANNMARIE Castle /6:37 PM /11:45 PM
[2017-04-20] VITALS (24 sets, daily range): BP systolic 143–173; BP diastolic 51–84; PULSE 56–86; RESP 16–18; TEMP 97.6–98.1; O2SAT 93–98
[2017-04-20] MEDS: NS + KCL 20 MEQ INJ 1,000 ML IV SCH (06:10)
[2017-04-20 07:05] LABS: AUTOMATED NEUTROPHIL # 4.5 TH/MM3 (1.8-7.7); BASOPHIL # 0.1 TH/MM3 (0-0.2); BASOPHIL % 0.6 % (0.0-2.0); EOSINOPHIL # 0.2 TH/MM3 (0-0.4); EOSINOPHIL % 2.7 % (0.0-4.0); HEMATOCRIT 35.1 % (35.0-46.0); HEMO FLAGS DIFF FINAL; LYMPH % 28.4 % (9.0-44.0); LYMPHOCYTE # 2.2 TH/MM3 (1.0-4.8); MEAN CELL VOLUME 94.1 FL (80.0-100.0); MEAN CORPUSCULAR HEMOGLOBIN 32.6 PG (27.0-34.0); MEAN CORPUSCULAR HGB CONC 34.7 % (32.0-36.0); MONO % 10.5 % (0.0-8.0); NEUT % 57.8 % (16.0-70.0); PLATELET COUNT 232 TH/MM3 (150-450); RED BLOOD COUNT 3.73 MIL/MM3 (4.00-5.30); RED CELL DISTRIBUTION WIDTH 12.8 % (11.6-17.2); WHITE BLOOD COUNT 7.9 TH/MM3 (4.0-11.0)
[2017-04-20 07:17] LABS: BICARBONATE 23.6 MEQ/L (21.0-32.0); POTASSIUM 3.8 MEQ/L (3.5-5.1)
[2017-04-20] MEDS: PRAVASTATIN SOD 20 MG TAB PO SCH (08:10)
[2017-04-20] MEDS: MULTIVITAMINS/MINERALS THERAPEUTIC TAB PO SCH (08:10)
[2017-04-20] MEDS: CHOLECALCIFEROL (VIT D3) 1000 UNIT TAB PO SCH (08:11)
[2017-04-20] MEDS: AMIODARONE 200 MG TAB PO SCH (08:11)
[2017-04-20] MEDS: HYDROCHLOROTHIAZIDE 25 MG TAB PO SCH (08:11)
[2017-04-20] MEDS: METOPROLOL TARTRATE 25 MG TAB PO SCH (08:11)
[2017-04-20] MEDS: LIOTHYRONINE SODIUM 5 MCG TAB PO SCH (08:11)
[2017-04-20] MEDS: DOCUSATE SODIUM 50 MG/SENNA 8.6 MG TAB PO SCH (08:11)
[2017-04-20] MEDS: RAMIPRIL 5 MG CAP PO SCH ×2 (08:11→21:12)
--- NOTE | 2017-04-20 11:10 | HHI.PR ---
Subjective Remarks Follow up a-fib. Scheduled for ablation today. Denies chest pain, dyspnea. Objective Vitals Vital Signs Date Time Temp Pulse Resp B/P (MAP) Pulse Ox O2 Delivery O2 Flow Rate FiO2 04/20/17 07:01 62 04/20/17 06:02 66 04/20/17 05:00 66 04/20/17 04:00 64 04/20/17 03:00 64 04/20/17 03:00 97.6 68 16 173/84 (113) 94 04/20/17 02:00 64 04/20/17 01:00 62 04/20/17 00:00 64 04/19/17 23:00 66 04/19/17 23:00 97.6 72 16 156/84 (108) 94 04/19/17 22:00 76 04/19/17 21:00 78 04/19/17 20:00 78 04/19/17 19:00 76 04/19/17 19:00 97.7 78 18 159/89 (112) 98 04/19/17 18:07 64 04/19/17 17:31 97.6 66 18 168/78 (108) 98 04/19/17 17:03 85 04/19/17 16:08 60 04/19/17 15:34 97.4 66 18 171/74 (106) 98 04/19/17 15:34 66 04/19/17 14:20 66 04/19/17 14:05 04/19/17 13:42 97.6 67 18 182/83 (116) 97 04/19/17 13:42 97.6 67 18 182/83 (116) 97 04/19/17 13:42 67 I/O 04/19/17 04/19/17 04/19/17 04/20/17 04/20/17 04/20/17 07:00 15:00 23:00 07:00 15:00 23:00 Intake Total 722 ml 607 ml Balance 722 ml 607 ml Intake Oral 480 ml 240 ml IV Total 242 ml 367 ml # Voids 2 3 # Bowel Movements 1 1 Result Diagram: 04/20/17 0510 04/20/17 0510 Imaging Last Impressions Chest X-Ray 04/19/17 0532 Signed Impressions: Service Date/Time: Wednesday, April 19, 2017 06:00 - CONCLUSION: Minimal bibasilar atelectasis. Lyndon Lee MD Objective Remarks General: No acute distress. Heart: Irregular rhythm. No murmur. Lungs: Clear to auscultation bilaterally. No wheezes, rales, or rhonchi. Breathing is nonlabored. Abdomen: Soft, nontender, nondistended. Extremities: No lower extremity edema. Psych: Alert and oriented. Procedures None Urinary Catheter: No Vascular Central Line Catheter: No A/P Problem List: (1) Atrial fibrillation with RVR ICD Code: I48.91 - Unspecified atrial fibrillation Status: Acute (2) Palpitations ICD Code: R00.2 - Palpitations Status: Acute (3) HTN (hypertension) ICD Code: I10 - Essential (primary) hypertension Status: Acute (4) Acute on chronic renal insufficiency ICD Code: N28.9 - Disorder of kidney and ureter, unspecified; N18.9 - Chronic kidney disease, unspecified Status: Acute Assessment and Plan 1. Atrial fibrillation with RVR: Given IV bolus of Cardizem 2 in the ER. Heart rate has improved. Currently off Cardizem drip. Appreciate cardiology recommendations. Scheduled for EP study, ablation today. 2. Hypertension: Continue home medications. 3. Anxiety: Xanax as needed. 4. Acute kidney injury: IV fluids. 5. DVT prophylaxis: Apixaban. Discharge Planning When cleared by cardiology. Omar Butt MD Apr 20, 2017 11:10
[2017-04-20] MEDS ORDERED: ceFAZolin INJ 1,000 MG VIAL IV ONE (12:00)
[2017-04-20] MEDS ORDERED: ONDANSETRON HCL 4 MG/2 ML VIAL IV PUSH ONE (12:00)
[2017-04-20] MEDS ORDERED: SODIUM CHLORID 0.9% 500 ML INJ 500 ML IV ONE (12:00)
[2017-04-20] MEDS ORDERED: GLYCOPYRROLATE 1 MG/5 ML SYRINGE IV PUSH ONE (12:00)
[2017-04-20] MEDS ORDERED: MIDAZOLAM HCL 2 MG/2 ML VIAL IV ONE (12:00)
[2017-04-20] MEDS ORDERED: PROPOFOL 200 MG/20 ML AMP IV ONE (12:00)
[2017-04-20] MEDS ORDERED: NEOSTIGMINE 3 MG/3 ML SYR IV ONE (12:00)
[2017-04-20] MEDS ORDERED: ROCURONIUM INJ 50 MG/5 ML SYRINGE IV PUSH ONE (12:00)
[2017-04-20] MEDS ORDERED: LIDOCAINE HCL 1% PF 5 ML AMPULE OTHER ONE (12:00)
[2017-04-20] MEDS ORDERED: SODIUM CHLOR 0.9% 250 ML INJ 250 ML IV ONE (12:00)
[2017-04-20] MEDS ORDERED: METOPROLOL TARTRATE 5 MG/5 ML VIAL IV PUSH ONE (12:00)
[2017-04-20] MEDS ORDERED: ESMOLOL HCL 100 MG/10 ML VIAL IV ONE (12:00)
[2017-04-20] MEDS ORDERED: HEPARIN-D5W 25,000 U/250 ML 250 ML ONE (12:58)
[2017-04-20] MEDS ORDERED: ISOPROTERENOL HCL 1 MG/5 ML AMP ONE (12:59)
[2017-04-20] MEDS ORDERED: HEPARIN SODIUM - IV 10,000 UNITS/10 ML VIAL ONE (12:59)
[2017-04-20] MEDS ORDERED: FUROSEMIDE 40 MG/4 ML VIAL ONE (12:59)
[2017-04-20] MEDS ORDERED: PROTAMINE SULFATE 50 MG/5 ML VIAL ONE (13:13)
[2017-04-20] MEDS ORDERED: HEPARIN-NS/PF INJ 2,000 ML ONE (13:56)
[2017-04-20] MEDS ORDERED: LEVOFLOXACIN 500 MG PREMIX INJ 100 ML IV ONE (13:57)
--- NOTE | 2017-04-20 16:48 | EKG ---
Date Performed: 04/20/2017 Time Performed: 05:32:24 PTAGE: 81 years EKG: Sinus rhythm with borderline 1st degree A-V block Prolonged QT interval Anterior T wave changes are nonspecific C ompared to previous tracing, the patient is now in sinus rhythm Borderline ECG PREVIOUS TRACING : 04/19/2017 05.47 DOCTOR: Alissa Quintero Interpretating Date/Time 04/20/2017 16:48:00
--- NOTE | 2017-04-20 17:22 | CATHPROC ---
[facility] HIS Report Study Information Study Number Scheduled Start Study Start [id number] 04/20/2017 Apr 20 2017 12:21PM Referring Institution Admit Source Facility Department 1 Other [facility] - Drone Operator Physician and Clinical Staff Initial Kin Montes Commercial Instructor Supervisor Nick Humphreys,RT(R) Other Anesthesia, COMMISSIONER OF RELOCATION SERVICES Recorder Tran Medina,RN Scrub Jessica Lewis RCIS Procedures Performed Procedure Location (Site) Vessel Name Ablation Procedure ICE CATHETER INSERT RA Atruim RF Ablation LT. ATRIUM LT. ATRIUM Equipment Time Trolley Collector Description Size Mfg Part Number Used/Scraped NEEDLE, TRANSSEPTAL NRG 98 14:09 [facility] [id number] Used C1 [employer]/ EP 14:09 KIT, TRANSDUCER / AFIB [id number] Used PACER [id number] CATHETER, TACTICATH ABLAT BUNDLE 14:09 BUNDLE-ST. VAL Used 65 BUNDLE *[id number] BUNDLE [id number] CATHETER, FR7 OPTIMA SPIRAL 14:09 BUNDLE-ST. VAL FR7 *[id number]- Used BUNDLE BUNDLE [id number] 14:09 BUNDLE-ST. VAL CATHETER, JSN, QUAD BUNDLE FR 5 *[id number]- Used BUNDLE [id number] 14:09 BUNDLE-ST. VAL CATHETER, JSN, QUAD BUNDLE FR 5 *[id number]- Used BUNDLE [id number] SET, COOL POINT TUBING 14:09 BUNDLE-ST. VAL *[id number]- Used BUNDLE BUNDLE SHEATH, FR8.5 STEERABLE SM 14:09 BUNDLE-ST. VAL 71CM [id number] Used 71CM BUNDLE COVER, TRANSDUCER CABLE 14:09 [employer]E [employer] [id number] Used ACUNAV 14:09 CORDIS/PACER SHEATH, FR10 JOSE 11CM FR 10 [id number] Used 14:09 CORDIS/PACER SHEATH, FR9 JOSE 11CM FR 9 [id number] Used [id number] 14:09 [employer] PACK, CCL CUSTOM * Used *[id number] 14:09 [employer] PACER [place], LIMB * 2530 *[id number] Used [id number] 14:09 [employer] MEDICAL SHEATH, FR4.5 PRELUDE 11CM FR 4.5 Used [id number] 14:09 NAMIC TUBING, HIGH PRESSURE 48" 48" Used *[id number] 14:09 NAMIC TUBING, HIGH PRESSURE 48" 48" Used *[id number] 14:09 [place] MEDICAL BLANKET,WARM AIR CCL * Used *[id number] 14:09 ST. [facility] MEDICAL ELECTRODE KIT, MARIKA X SURFACE * [id number] Used [id number] 14:09 [facility]. VAL MEDICAL SHEATH, EPS, FR6 FAST CATH FR 6 Used *[id number] 14:09 [facility]. VAL MEDICAL SHEATH, EPS, FR7 FAST CATH FR 7 [id number] Used [id number] 14:09 [facility]. VAL MEDICAL SHEATH, EPS, FR8 FAST CATH FR 8 Used *[id number] CATHETER, ACUNAV FR10 ICE [id number] 14:33 TRAVIS FR 10 Used (TRAVIS) *[id number] [facility] PAD, ELECTROSURGICAL 14:09 * [id number] *[id number] Used SURGICAL GROUNDING (BLUE) History: Allergies Allergy Reaction Ceclor RASH Cipro GI UPSET clonidine SKIN IRRITATION Sulfa RASH latex bandages SKIN REDNESS, RASH paroxetine Sulfa (Sulfonamide Antibiotics) RASH cefaclor RASH ciprofloxacin GI UPSET History: Risk Factors Hypertension Dyslipidemia Yes Yes Labs Hgb (g/dl) Hct (%) RBC (MIL/MM3) WBC (l/cumm) Platelets (thousands) 11.60-17.00 35.00-51.00 4.00-5.90 4.00-11.00 150.00-450.00 12.0 35 3.7 7.9 232 Glucose (mg/dl) BUN (mg/dl) Creatinine (mg/dl) BUN:Creatinine (1:x) 74.00-106.00 7.00-18.00 0.50-1.30 10.00-20.00 101 26 0.8 32.5 Na (meq/l) K (meq/l) 136.00-145.00 3.50-5.10 138 3.8 INR (PTT:PT) 0.90-1.10 1 Medication Medication Total Dose (Bolus/Oral) Medication Total Dosage/Unit 1% XYLOCAINE 40 mL HEPARIN 84431 units LASIX 40 mg PROTAMINE 40 mg Medications (Bolus/Oral) Medication Time Given Dosage/Unit Administered By Reason 1% XYLOCAINE 04/20/2017 2:24:40 PM 20 mL Kin Rincon 20 mL 1% XYLOCAINE given in lab by Kin Rincon via Subcutaneous. Ordered by Kin Rincon. 1% XYLOCAINE 04/20/2017 2:31:00 PM 20 mL Kin Rincon 20 mL 1% XYLOCAINE given in lab by Kin Rincon in Right Groin via Subcutaneous. Ordered by Derek Rincon. HEPARIN 04/20/2017 2:39:09 PM 66956 units Anesthesia, COMMISSIONER OF RELOCATION SERVICES As per physicians v erbal order 36729 units HEPARIN given in lab by Anesthesia, COMMISSIONER OF RELOCATION SERVICES via Peripheral IV. Ordered by Kin Rincon. [place] son: As per physicians verbal order. for transeptal PROTAMINE 04/20/2017 4:19:11 PM 40 mg Anesthesia, COMMISSIONER OF RELOCATION SERVICES As per physicians joshua bal order 40 mg PROTAMINE given in lab by Anesthesia, COMMISSIONER OF RELOCATION SERVICES via Peripheral IV. Ordered by Kin Rincon. Reason: As per physicians verbal order. LASIX 04/20/2017 4:19:29 PM 40 mg Anesthesia, COMMISSIONER OF RELOCATION SERVICES As per physicians verba l order 40 mg LASIX given in lab by Anesthesia, COMMISSIONER OF RELOCATION SERVICES via Peripheral IV. Ordered by Kin Rincon. Reason: As per physicians verbal order. Medication (Drip) Medication Time Given Dosage/Unit Concentration/Unit Diluent (ml) Solution HEPARIN DRIP 04/20/2017 2:52:44 PM 1000 units/hr 76754 units 250 D5W 1000 units/hr HEPARIN DRIP given in lab by Anesthesia, COMMISSIONER OF RELOCATION SERVICES via Peripheral IV. Pump/Drip Flow = 10 ml /hr [place] [address] units in 250 ml. Ordered by Kin Rincon. Reason: As per physicians verbal order. ISUPREL 04/20/2017 3:53:11 PM 20 mcg/min 1 mg 250 NaCl .9 20 mcg/min ISUPREL given in lab by Anesthesia, COMMISSIONER OF RELOCATION SERVICES via Peripheral IV. Pump/Drip Flow = 300 ml/hr usi ng NaCl .9 with a concentration of 1 mg in 250 ml. Ordered by Kin Rincon. LEVAQUIN 04/20/2017 2:02:47 PM 100 mL/hr 500 100 NaCl .9 100 mL/hr LEVAQUIN given in lab by Anesthesia, COMMISSIONER OF RELOCATION SERVICES in Right Forearm via Peripheral IV. Pump/Drip Ismael w = 0 ml/hr using NaCl .9 with a concentration of 500 in 100 ml. Ordered by Kin Rincon. Reason: As per physicians verbal order. fol ey insertion Initial Case Assessment Cardiovascular HR Rhythm NIBP Chest Pain 90 af 157/70 0 Edema Present Skin color Skin None Normal Warm Dry Circulatory - Right Pulses Dorsalis Pedis 1 Scale (0,1,2,3,4,d) Circulatory - Left Pulses Dorsalis Pedis 1 Scale (0,1,2,3,4,d) Circulatory - Lower Extremities Color Lower Right Color Lower Left Normal Normal Neurological State Oriented to time-place- Alert Moves all extremities person Respiration - General Respiration Rate SpO2 (%) (B/min) 20 99 Chronological Log Time Study Chronological Log 13:36:20 Patient arrived via Bed. 13:36:21 Patient Name, D.O.B, / Armband Verified By R.N. 13:36:22 Consent signed by the physician and the patient and verified by the Drone Operator staff. 13:36:22 Pre-op and post- op instructions given; patient acknowledges understanding of instructions. 13:36:23 Verbal Stimulation=2 Physical Stimulation=2 Airway=2 Respiration=2 TOTAL=8. (0=absent, 1=li mited, 2=present) 13:36:31 Anesthesia at bedside. Assumes care of patient. Maria Eugenia 13:36:38 Patient has been NPO for More than 6Hrs. 13:36:38 Skin Breakdown- generalized ecchymosis/5cm bruising on superior sternum of pt chest 13:36:52 Patient Warmer Placed on the Table. 13:36:53 Disposable Defibrillator Pads Placed On Patient. 13:36:54 Nissa Prominences Protected 13:36:54 A # 20 IV was noted in the Antecubital (right). Grade = 0 0.9ns kvo 13:36:55 A # 20 IV was noted in the Forearm (left). Grade = 0 0.9ns kvo 13:36:56 History and physical on the chart or being dictated. 13:44:37 Anesthesia present for intubation 13:56:39 Table restraints applied according to hospital policy 13:57:54 Bilateral groins prepped with 2% chlorhexidine, and draped after a 3 minute waiting time. 100 mL/hr LEVAQUIN given in lab by Anesthesia, COMMISSIONER OF RELOCATION SERVICES in Right Forearm via Peripheral IV. Pump/Dr ip Flow = 0 ml/hr 14:02:47 using NaCl .9 with a concentration of 500 in 100 ml. Ordered by Kin Rincon. Reason: As p er physicians verbal order. lyman insertion Assessment: Initial Case, HR=90 BPM, Rhythm=af, SWVJ=633/70 mmhg, Chest Pain=0, Edema=None, Col or=Normal, Skin = Warm, Dry Right Pulses: Yo Ped=1 Left Pulses: Yo Ped=1 14:02:54 Lower Right Extremities: Color=Normal Lower Left Extremities: Color=Normal Neurological: State=Alert, Ox3, RUSS Respiration: Resp=20 B/min, SpO2=99 % 14:03:16 Reference ECG taken 14:05:07 MD arrived. Time Out. Correct patient, procedure, procedure equipment, site and side verified with physicia n present. Time 14:19:28 concurred by MD, individual staff and COMMISSIONER OF RELOCATION SERVICES. Time Out #2 - Consents verified, patient in correct position, all results are labled and displa yed, safety precautions 14:19:42 taken, antibiotics administered. Time out concurred by MD, individual staff and COMMISSIONER OF RELOCATION SERVICES in procedu re 14:19:58 Case Start 14:20:11 RACH in progress. 14:23:20 RACH complete 14:24:40 20 mL 1% XYLOCAINE given in lab by Kin Rincon via Subcutaneous. Ordered by Kin Rincon . 14:25:54 Vascular access was obtained in the Fem Vein (left). 14:26:01 Vascular access was obtained in the Fem Vein (left). 14:26:24 Vascular access was obtained in the Fem Vein (left). 14:26:41 Vascular access was obtained in the Fem Art (left). A SHEATH, FR4.5 PRELUDE 11CM FR 4.5 was advanced into the Fem Art (left) using the Modified Naz gloria technique. 14:26:52 0.9ns pressure bag connected 14:27:23 A SHEATH, EPS, FR6 FAST CATH FR 6 was advanced into the Fem Vein (left) using the Modified Seldinger technique. 14:28:09 A SHEATH, EPS, FR7 FAST CATH FR 7 was advanced into the Fem Vein (left) using the Modified Seldinger technique. 14:29:48 A SHEATH, FR10 JOSE 11CM FR 10 was advanced into the Fem Vein (left) using the Modified S eldinger technique. 14:31:00 20 mL 1% XYLOCAINE given in lab by Kin Rincon in Right Groin via Subcutaneous. Ordered b y Kin Rincon. 14:31:55 A SHEATH, FR9 JOSE 11CM FR 9 was advanced into the Fem Vein (right) using the Modified Se macdonald technique. A CATHETER, JSN, QUAD BUNDLE FR 5 was advanced vis Fem Vein (left) and placed in the CS. Placem ent was visually 14:33:31 confirmed under fluoroscopy. A CATHETER, JSN, QUAD BUNDLE FR 5 was advanced vis Fem Vein (left) and placed in the HIS. Place ment was 14:34:14 visually confirmed under fluoroscopy. 14:35:10 CATHETER, ACUNAV FR10 ICE ([facility]) FR 10 Was Postioned. A SHEATH, FR8.5 STEERABLE SM 71CM BUNDLE 71CM was exchanged in the Fem Vein (right). This was n ecessary in 14:36:42 order for catheter support. 14:38:00 [place] [address] units HEPARIN given in lab by Anesthesia, COMMISSIONER OF RELOCATION SERVICES via Peripheral IV. Ordered by Primitivo Rincon. Reason: As per 14:39:09 physicians verbal order. for transeptal 14:40:00 A eps was advanced to the right atrium and passed through the septal wall to the left atriu m. 14:40:07 [place] out A CATHETER, FR7 OPTIMA SPIRAL BUNDLE FR7 was advanced vis Fem Vein (right) and placed in the LA . Placement 14:41:21 was visually confirmed under fluoroscopy. Mapping in progress. 14:44:01 Activated Clotting Time Drawn 14:52:33 ACT (Normal Range 90-180) = 351 1000 units/hr HEPARIN DRIP given in lab by Anesthesia, COMMISSIONER OF RELOCATION SERVICES via Peripheral IV. Pump/Drip Flow = 10 ml/hr using 14:52:44 D5[place] [address] units in 250 ml. Ordered by Kin Rincon. Reason: As per phariane goncalvesians verbal order. 14:53:24 Mapping complete. Mapping Catheter was removed. A CATHETER, TACTICATH ABLAT 65 BUNDLE was advanced vis Fem Vein (right) and placed in the LA. P lacement was 14:54:49 visually confirmed under fluoroscopy. 14:55:35 RF Ablation of the LT. ATRIUM with a CATHETER, TACTICATH ABLAT 65 BUNDLE. 15:21:53 EPS in progress 15:22:37 Activated Clotting Time Drawn 15:23:50 Ablation continues 15:30:37 ACT (Normal Range 90-180) = 349 20 mcg/min ISUPREL given in lab by Anesthesia, COMMISSIONER OF RELOCATION SERVICES via Peripheral IV. Pump/Drip Flow = 300 ml/ hr using NaCl .9 15:53:11 with a concentration of 1 mg in 250 ml. Ordered by Kin Rincon. 15:55:10 Activated Clotting Time Drawn 16:00:20 ACT (Normal Range 90-180) = 336 16:06:41 Isuprel off 16:10:00 Case End 16:16:58 Catheters removed without difficulty. 40 mg PROTAMINE given in lab by Anesthesia, COMMISSIONER OF RELOCATION SERVICES via Peripheral IV. Ordered by Kin Rincon. R tracey: As per 16:19:11 physicians verbal order. 40 mg LASIX given in lab by Anesthesia, COMMISSIONER OF RELOCATION SERVICES via Peripheral IV. Ordered by Kin Rincon. Reaso n: As per physicians 16:19:29 verbal order. 16:28:35 Activated Clotting Time Drawn 16:30:04 ACT (Normal Range 90-180) = 129 16:30:40 Ablation procedure performed: AFIB. 16:30:46 EP Procedure was performed. 16:31:27 Sheaths removed; pressure applied to access sites. Pt has mid sternal skin tear [id number] noted on echymotic area. aware he ordered it open to akira lee. Will pass on to 16:32:47 mold sprayer 16:34:19 Left Fem Sheath Art removed; pressure applied to access site x15 min. Site WNL. 16:48:57 Left Fem venous Sheaths removed; pressure applied to access sites x 22 min. 17:15:34 PACU called. Spoke to Rick. 17:15:41 Bedside Report will be given. 17:19:45 Sterile dressing applied to left fem access sites. Sites WNL. no hematoma, no oozing to any access site noted. 17:21:21 Defibrillator and ground pads removed. Skin intact. 17:21:24 Patient moved to stretcher. Bilateral groins wnl End Study - Contrast Media Used In Study Contrast Total Opened (mL) Total Used (mL) Total Wasted (mL) Unspecified 0 0 0 End Study - Maximum Contrast Load Max Contrast Load (mL) 434.9 End Study - Radiation Exposure Fluoro Time (minutes) 1.4 End Study - Sheaths Sheaths Pulled By Sheath Hold Time (min) Nick Humphreys 25 End Study - Patient Disposition Complications Transferred To Interventional Outcome No Telemetry Bed successful
[2017-04-20] MEDS ORDERED: SODIUM CHLOR 0.9% 250 ML INJ 250 ML IV PRN (18:00)
[2017-04-20] MEDS ORDERED: METOCLOPRAMIDE HCL 10 MG/2 ML VIAL IV PUSH PRN (18:00)
[2017-04-20] MEDS ORDERED: ONDANSETRON HCL 4 MG/2 ML VIAL IV PUSH PRN (18:00)
[2017-04-20] MEDS ORDERED: LIDOCAINE HCL 1% 50 ML VIAL INFIL PRN (18:00)
[2017-04-20] MEDS ORDERED: BACITRACIN OINT 0.9 GM PKT TOP ONE (18:00)
[2017-04-20] MEDS ORDERED: LORazepam 2 MG/ML VIAL IV PUSH PRN (18:00)
[2017-04-20] MEDS ORDERED: oxyCODONE/ACETAMINOPHEN 5 MG/325 MG TAB PO PRN ×2 (18:00)
[2017-04-20] MEDS ORDERED: ATROPINE SULFATE 1 MG/ML VIAL IV PUSH PRN (18:00)
--- NOTE | 2017-04-20 18:18 | PD.CARD ---
Atrial Fibrillation Ablation PROCEDURE DATE: Apr 20, 2017 PROCEDURES PERFORMED: 1. Electrophysiology study on Isuprel infusion 2. CS cannulation 3. 3-D mapping 4. Transseptal approach 5. Right and left heart catheterization 6. Intracardiac echo 7. Radiofrequency ablation of atrial fibrillation 8. Pulmonary vein isolation 9. Posterior wall ablation 10. Mitral valve isolation 11. Mitral line creation 12. Left atrial tachycardia ablation 13. Roof line creation 14. Floor line creation 15. Anterior wall ablation 16. Cardioversion INDICATIONS FOR THE PROCEDURE Ms. Ferreira is a 81-year-old female with atrial fibrillation, previous ablation over four years ago, multiple ER visits, on anticoagulation who undergo electrophysiology study and ablation. The patient is symptomatic and on anticoagulation. The risks, the nature and the benefits of the procedure were clearly stated to her. The risks include pneumothorax, cardiac perforation, stroke, need for open heart surgery and even . The patient understood and agreed to proceed. DESCRIPTION OF THE PROCEDURE IN DETAIL After written informed consent was obtained prior to esophageal echocardiogram, the patient was kept on the table where she was prepped and draped in the usual sterile fashion. Conscious sedation was initiated and maintained throughout the procedure by the anesthesiologist. Once sedation was verified, the right and left inguinal areas were anesthetized with 2% Xylocaine. Using modified Seldinger technique, the left femoral vein was cannulated on three occasions, three guidewires were advanced. Over the wire a 6, 7 and a 10-Andorran Hemaquet were advanced. Then the left femoral artery was cannulated on one occasion, one guidewire was advanced. Over the wire a 4-Andorran Hemaquet was advanced. Then the right femoral vein was cannulated on one occasion, one guidewire was advanced. Over the wire a 8-Andorran Hemaquet was advanced. Then under fluoroscopic guidance through the 6 and 7-Andorran Hemaquet, two 5-Andorran Chasidy curved quadripolar electrophysiology catheters were advanced and placed around the His as well as coronary sinus. Basic interval was measured. The patient was in sinus rhythm. Through the 10-Andorran Hemaquet, a Cordis Diaz AcuNav intracardiac echo catheter was advanced and placed at the right atrium. Multiple view was obtained. There was no pericardial effusion, pulmonary vein was seen, atrial septal was visualized. Then the 8-Andorran Hemaquet in the right femoral vein was exchanged for Agilis transseptal sheath that was placed all the way to the superior vena cava. Through the sheath a Lois needle was advanced, then the sheath, the dilator and the needle were progressed until foci engaged. Once engaged, the needle was advanced. RF was delivered for 2 seconds. I was able to cross into the left atrium. Once the needle crossed, the dilator was advanced. Once the dilator crossed, the sheath was advanced. Once the sheath crossed, the dilator and the needle were removed. At this point I did flood the system and fluid movement was seen in the left atrium the indicates the sheath is in good position. The patient already received 10,000 units of heparin. The goal is to keep an ACT around 350 during ablation. Then through the sheath a St. Obed 20 pulse circumferential catheter was advanced. Using Featurespace endocardial solution mapping system, a two-dimensional configuration of the left atrium was obtained. Points were taken at the left superior and inferior veins, right superior and inferior veins, mitral valve, and appendages. Then through the sheath a St. Obed TactiCath 65cm 3.5mm irrigated tipped mapping and radiofrequency ablation catheter was advanced. Esophageal probe was placed temperature monitoring during ablation. When it increased to 0.5 degrees Celsius above baseline, I moved to a different area of the atrium. First I did make a [place] around the veins. Posterior was ablated. Then a roof line was created, a floor line was created, a mitral line was isolated, then the mitral valve was isolated. I did create a line from the floor to the roof area, passing by the left atrial appendage. Then the right superior and inferior veins were isolated. I did remap the atrium. There is no significant signal in the atrium. I decided to proceed with atrial pacing protocol by pacing from the distal pole of the coronary sinus catheter. Left atrial tachycardia was induced. I did remapped the atrium.Early activation was at the low anterior wall. Ablation was performed , tachycardia was terminated. Then atrial pacing protocol was repeated. Tachycardia was induced. Early activation at the septal area. Ablation was performed. Tachy was terminated. Atrial pacing protocol was repeated again, no tachy was induced.. At this point I decided to proceed with cardioversion. At that point I did advance the circumferential catheter again into the vein. There was no signal into the vein, pacing from the vein showed no conduction to the atrium. Isuprel infusion was initiated at 20 mcg for over 10 minutes. No tachyarrhythmia was induced, post Isuprel no tachyarrhythmia was induced. At that point the procedure was complete. All catheters were removed, atrial septal sheath was exchanged for 9-Andorran Hemaquet, intracardiac echo showed no pericardial effusion. There is still good flow in the pulmonary vein. The patient is going to be transferred to the recovery room. No incident report. The patient tolerated the procedure. Blood loss was minimal. FINDINGS 1. Electrocardiogram: At baseline the patient was in sinus rhythm, post procedure electrocardiogram was unchanged. 2. Basic interval: Base cycle length was around 1150. AH at 120 and HV at 50 milliseconds. 3. Tachyarrhythmia: Atrial fibrillation was mapped and ablated. Atrial tachycardia was ablated. The ablation was successful. CONCLUSION Successful electrophysiology study, mapping, radiofrequency ablation of atrial fibrillation, left atrial tachycardia, pulmonary vein isolation, posterior ablation, mitral valve isolation, mitral line creation, roof line creation, floor line creation, left atrial tachycardia, and cardioversion. COMMENTS AND RECOMMENDATIONS The patient is going to be transferred to the telemetry unit. Will be observed and when stable can be discharged home. Kin Rincon MD Apr 20, 2017 18:18
[2017-04-20] MEDS: APIXABAN 5 MG TABLET PO SCH (21:13)
[2017-04-20] MEDS: ALPRAZolam 0.25 MG TAB PO PRN (21:13)
[2017-04-21] VITALS (11 sets, daily range): BP systolic 147–161; BP diastolic 70–88; PULSE 66–100; RESP 18; TEMP 98.3–98.5; O2SAT 97–98
[2017-04-21] MEDS: ALPRAZolam 0.25 MG TAB PO PRN (03:09)
--- NOTE | 2017-04-21 08:25 | PD.CARD.PN ---
Subjective Subjective Remarks Feels okay Objective Medications Current Medications Medications (Trade) Dose Ordered Sig/Keith Route Start Time Stop Time Status Last Admin (NS Flush) 2 ml UNSCH PRN IVF 04/19/17 05:45 (Tylenol) 650 mg Q4H PRN PO 04/19/17 08:45 (Zofran Inj) 4 mg Q6H PRN IVP 04/19/17 08:45 (Narcan Inj) 0.4 mg UNSCH PRN IV PUSH 04/19/17 08:45 (Milk Of Magnesia Liq) 30 ml Q12H PRN PO 04/19/17 08:45 (Senokot) 17.2 mg Q12H PRN PO 04/19/17 08:45 (Dulcolax Supp) 10 mg DAILY PRN RECTAL 04/19/17 08:45 (Lactulose Liq) 30 ml DAILY PRN PO 04/19/17 08:45 Potassium Chloride/Sodium Chloride 1,000 ml @ 50 mls/hr Q20H IV 04/19/17 10:00 04/20/17 06:10 (Xanax) 0.25 mg Q6H PRN PO 04/19/17 11:15 04/21/17 03:09 (Cordarone) 200 mg DAILY PO 04/20/17 09:00 04/20/17 08:11 (Vitamin D3) 1,000 units DAILY PO 04/20/17 09:00 04/20/17 08:11 (Climara 0.025 Mg Patch.7d) 1 patch Q7D T-DERMAL 04/19/17 12:00 (Hydrodiuril) 25 mg DAILY PO 04/20/17 09:00 04/20/17 08:11 (Cytomel) 5 mcg DAILY PO 04/20/17 09:00 04/20/17 08:11 (Pravachol) 20 mg DAILY PO 04/20/17 09:00 04/20/17 08:10 (Theragran M Tab) 1 tab DAILY PO 04/20/17 09:00 04/20/17 08:10 (Magdalena-Colace) 1 tab DAILY PO 04/20/17 09:00 04/20/17 08:11 (Altace) 10 mg BID PO 04/19/17 21:00 04/20/17 21:12 (Percocet 5-325 Mg) 1 tab Q4H PRN PO 04/20/17 18:00 (Percocet 5-325 Mg) 2 tab Q4H PRN PO 04/20/17 18:00 (Ativan Inj) 0.5 mg UNSCH PRN IV PUSH 04/20/17 18:00 04/21/17 17:59 (Atropine Inj) 0.5 mg UNSCH PRN IV PUSH 04/20/17 18:00 Sodium Chloride 250 ml @ 500 mls/hr ONCE PRN IV 04/20/17 18:00 04/21/17 17:59 (Reglan Inj) 10 mg Q4H PRN IV PUSH 04/20/17 18:00 (Zofran Inj) 4 mg Q4H PRN IV PUSH 04/20/17 18:00 (Xylocaine 1% Inj (50 ml)) 10 ml UNSCH PRN INFIL 04/20/17 18:00 04/21/17 17:59 (Eliquis) 5 mg BID PO 04/20/17 21:00 04/20/17 21:13 Vital Signs / I&O Vital Signs Date Time Temp Pulse Resp B/P (MAP) Pulse Ox O2 Delivery O2 Flow Rate FiO2 04/21/17 07:00 98.3 83 18 161/88 (112) 97 04/21/17 06:05 82 04/21/17 05:06 100 04/21/17 04:23 68 04/21/17 03:50 98.5 74 18 147/70 (95) 98 04/21/17 03:00 87 04/21/17 02:00 70 04/21/17 01:00 66 04/21/17 00:00 68 04/20/17 23:40 98.0 79 16 168/56 (93) 97 04/20/17 23:00 70 04/20/17 22:00 74 04/20/17 21:00 86 04/20/17 20:00 58 04/20/17 19:40 97.6 61 18 158/76 (103) 98 04/20/17 19:30 65 04/20/17 18:15 97.6 62 17 149/70 (96) 97 Room Air 04/20/17 18:01 98.1 59 16 143/51 (81) 93 04/20/17 18:00 57 17 149/70 (96) 97 Room Air 04/20/17 17:45 58 17 135/68 (90) 99 Nasal Cannula 2 04/20/17 17:33 97.6 62 15 135/70 (91) 99 Nasal Cannula 2 04/20/17 13:00 60 04/20/17 12:00 60 04/20/17 11:30 97.9 59 18 155/78 (103) 97 04/20/17 11:00 56 04/20/17 10:00 56 04/20/17 09:00 74 I/O 04/20/17 04/20/17 04/20/17 04/21/17 04/21/17 04/21/17 07:00 15:00 23:00 07:00 15:00 23:00 Intake Total 607 ml 825 ml 1018 ml Output Total 2450 ml 1700 ml Balance 607 ml -1625 ml -682 ml Intake Oral 240 ml 0 ml 720 ml IV Total 367 ml 25 ml 298 ml Other 800 ml Output Urine Total 2450 ml 1700 ml # Voids 3 2 # Bowel Movements 1 1 Physical Exam GENERAL: Well-nourished, well-developed patient. SKIN: Warm and dry. Groin site soft without bruising or bleeding. Midsternal skin tear with surrounding erythema. Multiple areas of ecchymosis on all extremities HEAD: Normocephalic. EYES: No scleral icterus. No injection or drainage. NECK: Supple, trachea midline. No JVD or lymphadenopathy. CARDIOVASCULAR: Regular rate and rhythm without murmurs, gallops, or rubs. RESPIRATORY: Breath sounds equal bilaterally. No accessory muscle use. GASTROINTESTINAL: Abdomen soft, non-tender, nondistended. EXTREMITIES: No cyanosis, or edema. NEUROLOGICAL: Awake, alert, and oriented x 3. Non-focal. Assessment and Plan Problem List: (1) Atrial fibrillation with RVR ICD Codes: I48.91 - Unspecified atrial fibrillation Status: Acute Plan: Groin sites soft, NSR on telemetry. Can be discharged home at the discretion of the managing team.. F/U with Dr. Rincon in 3 weeks per my d/w him. Katrina Morataya Apr 21, 2017 08:25
[2017-04-21] MEDS: LIOTHYRONINE SODIUM 5 MCG TAB PO SCH (09:00)
[2017-04-21] MEDS: RAMIPRIL 5 MG CAP PO SCH (09:00)
[2017-04-21] MEDS: PRAVASTATIN SOD 20 MG TAB PO SCH (09:00)
[2017-04-21] MEDS: DOCUSATE SODIUM 50 MG/SENNA 8.6 MG TAB PO SCH (09:00)
--- NOTE | 2017-04-21 09:05 | HHI.DCPOC ---
Discharge Care Plan Diagnosis: (1) Acute on chronic renal insufficiency (2) Atrial fibrillation with RVR (3) HTN (hypertension) Goals to Promote Your Health * To prevent worsening of your condition and complications * To maintain your health at the optimal level Directions to Meet Your Goals Take your medications as prescribed Follow your dietary instruction Follow activity as directed Keep your appointments as scheduled Take your immunizations and boosters as scheduled If your symptoms worsen call your PCP, if no PCP go to Urgent Care Center or Emergency Room Smoking is Dangerous to Your Health. Avoid second hand smoke Call the 24-hour hour crisis hotline for domestic abuse at Omar Butt MD Apr 21, 2017 09:05
--- NOTE | 2017-04-21 09:08 | HHI.PR ---
Subjective Remarks Follow-up A. fib. Status post ablation. Patient denies chest pain or dyspnea. No palpitations. She states that her heart rate was elevated overnight, but she was told by nursing staff that it was not atrial fibrillation. It was likely related to anxiety. She states that she was quite anxious overnight. She states that she wants to go home today. Objective Vitals Vital Signs Date Time Temp Pulse Resp B/P (MAP) Pulse Ox O2 Delivery O2 Flow Rate FiO2 04/21/17 08:00 75 04/21/17 07:00 98.3 83 18 161/88 (112) 97 04/21/17 07:00 73 04/21/17 06:05 82 04/21/17 05:06 100 04/21/17 04:23 68 04/21/17 03:50 98.5 74 18 147/70 (95) 98 04/21/17 03:00 87 04/21/17 02:00 70 04/21/17 01:00 66 04/21/17 00:00 68 04/20/17 23:40 98.0 79 16 168/56 (93) 97 04/20/17 23:00 70 04/20/17 22:00 74 04/20/17 21:00 86 04/20/17 20:00 58 04/20/17 19:40 97.6 61 18 158/76 (103) 98 04/20/17 19:30 65 04/20/17 18:15 97.6 62 17 149/70 (96) 97 Room Air 04/20/17 18:01 98.1 59 16 143/51 (81) 93 04/20/17 18:00 57 17 149/70 (96) 97 Room Air 04/20/17 17:45 58 17 135/68 (90) 99 Nasal Cannula 2 04/20/17 17:33 97.6 62 15 135/70 (91) 99 Nasal Cannula 2 04/20/17 13:00 60 04/20/17 12:00 60 04/20/17 11:30 97.9 59 18 155/78 (103) 97 04/20/17 11:00 56 04/20/17 10:00 56 I/O 10/3/17 10/3/17 10/3/17 10/4/17 10/4/17 10/4/17 07:00 15:00 23:00 07:00 15:00 23:00 Intake Total 607 ml 825 ml 1018 ml Output Total 2450 ml 1700 ml Balance 607 ml -1625 ml -682 ml Intake Oral 240 ml 0 ml 720 ml IV Total 367 ml 25 ml 298 ml Other 800 ml Output Urine Total 2450 ml 1700 ml # Voids 3 2 # Bowel Movements 1 1 Result Diagram: 04/20/17 0510 04/20/17509 Imaging Last Impressions Chest X-Ray 04/19/1732 Signed Impressions: Service Date/Time: Wednesday, April 19, 2017 06:00 - CONCLUSION: Minimal bibasilar atelectasis. Lyndon Lee MD Objective Remarks General: No acute distress. Heart: Regular rhythm. No murmur. Lungs: Clear to auscultation bilaterally. No wheezes, rales, or rhonchi. Breathing is nonlabored. Abdomen: Soft, nontender, nondistended. Extremities: No lower extremity edema. Psych: Alert and oriented. Skin: Multiple areas of ecchymosis on extremities and chest Procedures 04/20/17 EP study, ablation Urinary Catheter: No Vascular Central Line Catheter: No A/P Problem List: (1) Atrial fibrillation with RVR ICD Code: I48.91 - Unspecified atrial fibrillation Status: Acute (2) Palpitations ICD Code: R00.2 - Palpitations Status: Acute (3) HTN (hypertension) ICD Code: I10 - Essential (primary) hypertension Status: Acute (4) Acute on chronic renal insufficiency ICD Code: N28.9 - Disorder of kidney and ureter, unspecified; N18.9 - Chronic kidney disease, unspecified Status: Acute Assessment and Plan 1. Atrial fibrillation with RVR: Given IV bolus of Cardizem 2 in the ER. Heart rate has improved. Currently off Cardizem drip. Appreciate cardiology recommendations. Status post EP study, ablation. Cleared for discharge by cardiology. 2. Hypertension: Continue home medications. 3. Anxiety: Xanax as needed. 4. Acute kidney injury: IV fluids. 5. DVT prophylaxis: Apixaban. Discharge Planning Cleared for discharge by cardiology. Discharge home in stable condition. Follow- up with PCP and cardiology. Heart healthy diet. Activity as tolerated. Patient advised to gradually work up to normal activities. She states that her will be able to help her get around the house. Omar Butt MD Apr 21, 2017 09:08
--- NOTE | 2017-04-21 09:54 | EKG ---
Date Performed: 04/21/2017 Time Performed: 05:54:52 PTAGE: 81 years EKG: Sinus rhythm with borderline 1st degree A-V block. Extensive T wave changes are nonspecific Borderline ECG NO PREVIOUS TRACING DOCTOR: Phil Franco Interpretating Date/Time 04/21/2017 09:53:22
[2017-04-21] MEDS: MULTIVITAMINS/MINERALS THERAPEUTIC TAB PO SCH (09:55)
[2017-04-21] MEDS: CHOLECALCIFEROL (VIT D3) 1000 UNIT TAB PO SCH (09:56)
[2017-04-21] MEDS: AMIODARONE 200 MG TAB PO SCH (09:56)
[2017-04-21] MEDS: APIXABAN 5 MG TABLET PO SCH (09:57)
[2017-04-21] MEDS: HYDROCHLOROTHIAZIDE 25 MG TAB PO SCH (09:57)
--- NOTE | 2017-04-21 10:24 | EKG ---
Date Performed: 04/20/2017 Time Performed: 17:48:52 PTAGE: 81 years EKG: SINUS BRADYCARDIA NONSPECIFIC T-WAVE ABNORMALITY BORDERLINE ECG PREVIOUS TRACING : 04/20/2017 05.32 DOCTOR: Phil Franco Interpretating Date/Time 04/21/2017 10:23:42
== END 2017-04-21 10:45 | disposition home or self-care (01) | DRG 274 ==
LOC: NEPC 05:13 → NEDA 08:43 → HCIS 13:26
PROVIDERS: ADMIT Family Medicine; ATTEND Family Medicine
PROC: 4A023FZ Measurement of Cardiac Rhythm, Percutaneous Approach (ICD-10-PCS; 2017-04-20)
PROC: 4A0234Z Measurement of Cardiac Electrical Activity, Percutaneous Approach (ICD-10-PCS; 2017-04-20)
PROC: B246ZZZ Ultrasonography of Right and Left Heart (ICD-10-PCS; 2017-04-20)
PROC: 5A2204Z Restoration of Cardiac Rhythm, Single (ICD-10-PCS; 2017-04-20)
PROC: 02K83ZZ Map Conduction Mechanism, Percutaneous Approach (ICD-10-PCS; 2017-04-20)
PROC: 02583ZZ Destruction of Conduction Mechanism, Percutaneous Approach (ICD-10-PCS; principal; 2017-04-20 16:00)
DX: I48.91 Unspecified atrial fibrillation (principal); N17.9 Acute kidney failure, unspecified; I12.9 Hypertensive chronic kidney disease with stage 1 through stage 4 chronic kidney disease, or unspecified chronic kidney disease; N18.9 Chronic kidney disease, unspecified; E78.00 Pure hypercholesterolemia, unspecified; Z79.01 Long term (current) use of anticoagulants; M19.90 Unspecified osteoarthritis, unspecified site; F41.9 Anxiety disorder, unspecified; F32.9 Major depressive disorder, single episode, unspecified; Z85.828 Personal history of other malignant neoplasm of skin; Z82.49 Family history of ischemic heart disease and other diseases of the circulatory system; Z96.643 Presence of artificial hip joint, bilateral; E87.6 Hypokalemia
CPT/HCPCS: 71010; 80048; 82550; 83735; 84484; 85002; 85025; 85610; 85730; 93005; 93312; 93320; 93325; 93613; 93623; 93656; 93662; 96374; 96376; C1730; C1731; C1732; C1759; C1766; C2630; J0690; J1644; J1940; J1956; J2250; J2405; J2710; J2720; J3010; J3480; J7040; J7050

== ENCOUNTER 2017-05-03 00:02 | Emergency (ER) | payer MEDICARE, BC ==
[2017-05-03] VITALS (11 sets, daily range): BP systolic 139–191; BP diastolic 85–101; PULSE 82–128; RESP 18–20; TEMP 98; O2SAT 96–99
[~2017-05-03 00:02] MED LIST changes: +AMIO200T PO; -AMLO10TA2 PO; +APIX5TAB PO; -CARD120C4 PO; +METO25TA3 PO; -METO50TA PO
--- NOTE | 2017-05-03 00:38 | PD ---
HPI Chief Complaint: Cardiac Complaint Time Seen by Provider: 00:24 Travel History International Travel<30 days: No Contact w/Intl Traveler<30days: No Traveled to known affect area: No History of Present Illness HPI PATIENT STATES THAT HAD ABLATIONI ABOUT 2 WEEKS AGO, HAS HAD EPISODES OF IRREGULAR HEART RATE BUT WERE NEVER ABOVE 90, PT IS ON ELIQUIS WELL, PATIENT TODAY DEVELOPED PALPITATIONS THAT STAYED ABOVE 120 AND WERE NOT LOWERING DESPITE MEDICATIONS. PATIENT DENIES CP/AYERS/ABD PAIN/N/V/D/SOB. SO EMS WAS CALLED TO COME IN AND BE EVALUATED NURSES NOTES AND CHART REVIEWED PCP: DR FIELDS CARDIO: DR WEBSTER PMHX: AFIB S/P 4 ABLATIONS, HIGH CHOL, HTN, PFSH Past Medical History Hx Anticoagulant Therapy: Yes Arthritis: Yes (lower back) Asthma: No Atrial Fibrillation: Yes Autoimmune Disease: No Blood Disorders: No Anxiety: Yes Depression: Yes Heart Rhythm Problems: Yes (afib) Cancer: Yes (skin, left thigh and nose (removed)) Cardiac Catheterization: No Cardiovascular Problems: Yes High Cholesterol: Yes (controlled) Chemotherapy: No Chest Pain: No Congestive Heart Failure: No COPD: No Cerebrovascular Accident: No Diabetes: No Diminished Hearing: No Endocrine: No Gastrointestinal Disorders: No GERD: No Glaucoma: No Genitourinary: No Headaches: No Hepatitis: No Hiatal Hernia: No Heparin Induced Thrombocytopen: No Hypertension: Yes Immune Disorder: No Implanted Vascular Access Dvce: Yes Kidney Stones: No Musculoskeletal: Yes (DIFFICULTY WALKING R/T HIP SURGERIES) Neurologic: No Psychiatric: Yes Reproductive: No Respiratory: No Immunizations Current: Yes Migraines: No Myocardial Infarction: No Radiation Therapy: No Renal Failure: No Seizures: No Sickle Cell Disease: No Sleep Apnea: No Thyroid Disease: Yes Ulcer: No PNEUMOCCOCAL Vaccine (Year): 3 Menopausal: Yes : 2 Para: 1 Past Surgical History Abdominal Surgery: No AICD: No Appendectomy: No Arteriovenous Shunt: No Cardiac Surgery: Yes (ablation x3) Cholecystectomy: No Coronary Artery Bypass Graft: No Ear Surgery: No Endocrine Surgery: No Eye Surgery: No Genitourinary Surgery: No Gynecologic Surgery: Yes (hysterectomy) Hysterectomy: Yes Insulin Pump: No Joint Replacement: Yes (bilat hip) Neurologic Surgery: No Oral Surgery: No Pacemaker: No Thoracic Surgery: No Other Surgery: Yes (Skin CA removed fro forehead and leg) Family History Family Myocardial Infarction: Yes Social History Alcohol Use: No Tobacco Use: No (quit at 27 years of age) Substance Use: No Allergies-Medications (Allergen,Severity, Reaction): Coded Allergies: Sulfa (Sulfonamide Antibiotics) (Unverified Allergy, Severe, RASH, 04/19/17 ) cefaclor (Unverified Allergy, Severe, RASH, 04/19/17) paroxetine (Unverified Allergy, Severe, 04/19/17) ciprofloxacin (Unverified Allergy, Unknown, GI UPSET, 04/19/17) clonidine (Unverified Allergy, Unknown, SKIN IRRITATION, 04/19/17) Uncoded Allergies: latex bandages (Allergy, Mild, SKIN REDNESS, RASH, 05/10/13) Reported Meds & Prescriptions Reported Meds & Active Scripts Active Reported Amiodarone (Amiodarone HCl) 200 Mg Tab 200 Mg PO DAILY Metoprolol Tartrate 25 Mg Tab 25 Mg PO BID Eliquis (Apixaban) 5 Mg Tab 5 Mg PO BID Estradiol Patch 168 HR (Estradiol) 0.025 Mg/24 Hr Patch 1 Patch T-DERMAL Q7D Remove old patch and discard when new patch being placed. Senna Plus 8.6-50 mg (Sennosides-Docusate Sodium) 1 Tab Tab 2 Tab PO DAILY Centrum (Multiple Vitamins W/ Minerals) 1 Chew 1 Tab CHEW DAILY Vitamin D3 (Cholecalciferol) 1,000 Unit Cap 1,000 Units PO DAILY Hydrochlorothiazide 25 Mg Tab 25 Mg PO DAILY Liothyronine (Liothyronine Sodium) 5 Mcg Tab 5 Mcg PO DAILY Lovastatin 20 Mg Tab 20 Mg PO DAILY Ramipril 10 Mg Cap 10 Mg PO BID Alprazolam 0.25 Mg Tab 0.25 Mg PO Q6H PRN Physical Exam Narrative GENERAL: SKIN: Warm and dry. HEAD: Atraumatic. Normocephalic. EYES: Pupils equal and round. No scleral icterus. No injection or drainage. ENT: No nasal bleeding or discharge. Mucous membranes pink and moist. NECK: Trachea midline. No JVD. CARDIOVASCULAR: TACHYCARDIC rate and IRREGULAR IRREGULAR rhythm. RESPIRATORY: No accessory muscle use. Clear to auscultation. Breath sounds equal bilaterally. GASTROINTESTINAL: Abdomen soft, non-tender, nondistended. Hepatic and splenic margins not palpable. MUSCULOSKELETAL: Extremities without clubbing, cyanosis, or edema. No obvious deformities. NEUROLOGICAL: Awake and alert. No obvious cranial nerve deficits. Motor grossly within normal limits. Five out of 5 muscle strength in the arms and legs. Normal speech. PSYCHIATRIC: Appropriate mood and affect; insight and judgment normal. Data Data Last Documented VS Vital Signs Date Time Temp Pulse Resp B/P (MAP) Pulse Ox O2 Delivery O2 Flow Rate FiO2 05/03/17 02:36 98 18 156/87 (110) 96 Room Air 05/03/17 00:06 98.0 Orders Orders Electrocardiogram (05/03/17 00:31) Basic Metabolic Panel (Bmp) (05/03/17 00:31) B-Type Natriuretic Peptide (05/03/17 00:31) Ckmb (Isoenzyme) Profile (05/03/17:31) Complete Blood Count With Diff (05/03/17 00:31) Comprehensive Metabolic Panel (05/03/17 00:31) Prothrombin Time / Inr (Pt) (05/03/17:31) Act Partial Throm Time (Ptt) (05/03/17 00:31) Troponin I (05/03/17 00:31) Chest, Single Ap (05/03/17 00:31) Ecg Monitoring (05/03/17 00:31) Bilateral Bp Monitoring (05/03/17:31) Iv Access Insert/Monitor (05/03/17 00:31) Oximetry (05/03/17 00:31) Oxygen Administration (05/03/17 00:31) Sodium Chloride 0.9% Flush (Ns Flush) (05/03/17 00:45) Diltiazem Inj (Cardizem Inj) (05/03/17 00:45) Labs Laboratory Tests Test 05/03/17 00:40 White Blood Count 8.4 TH/MM3 Red Blood Count 4.08 MIL/MM3 Hemoglobin 13.3 GM/DL Hematocrit 37.8 % Mean Corpuscular Volume 92.6 FL Mean Corpuscular Hemoglobin 32.5 PG Mean Corpuscular Hemoglobin Concent 35.1 % Red Cell Distribution Width 12.8 % Platelet Count 296 TH/MM3 Mean Platelet Volume 8.4 FL Neutrophils (%) (Auto) 61.5 % Lymphocytes (%) (Auto) 25.5 % Monocytes (%) (Auto) 10.6 % Eosinophils (%) (Auto) 1.4 % Basophils (%) (Auto) 1.0 % Neutrophils # (Auto) 5.2 TH/MM3 Lymphocytes # (Auto) 2.1 TH/MM3 Monocytes # (Auto) 0.9 TH/MM3 Eosinophils # (Auto) 0.1 TH/MM3 Basophils # (Auto) 0.1 TH/MM3 CBC Comment DIFF FINAL Differential Comment Prothrombin Time 10.6 SEC Prothromb Time International Ratio 1.0 RATIO Activated Partial Thromboplast Time 21.5 SEC Blood Urea Nitrogen 18 MG/DL Creatinine 1.05 MG/DL Random Glucose 129 MG/DL Total Protein 6.9 GM/DL Albumin 3.5 GM/DL Calcium Level 9.1 MG/DL Alkaline Phosphatase 74 U/L Aspartate Amino Transf (AST/SGOT) 24 U/L Alanine Aminotransferase (ALT/SGPT) 22 U/L Total Bilirubin 0.6 MG/DL Sodium Level 132 MEQ/L Potassium Level 3.5 MEQ/L Chloride Level 97 MEQ/L Carbon Dioxide Level 27.4 MEQ/L Anion Gap 8 MEQ/L Estimat Glomerular Filtration Rate 51 ML/MIN Total Creatine Kinase 63 U/L Troponin I 0.04 NG/ML B-Type Natriuretic Peptide 182 PG/ML MDM Medical Decision Making Medical Screen Exam Complete: Yes Emergency Medical Condition: Yes Medical Record Reviewed: Yes Interpretation(s) AFIB WITH RVR 120'S NO STEMI PATTERN Differential Diagnosis STEMI V NONSTEMI V ANEMIA V DEHYDRATION V RATE CONTROL Narrative Course SINGLE DOSE OF CARDIZEM 10MG CONTROLLED RATE FROM 120'S DOWN TO 70-80'S, STABLE BP, NL TROPONIN, NEGATIVE ANEMIA/DEHYDRATION NOTED. NO E/O STEMI ON EKG. PATIENT TOLERATED AMBULATION AND PO WITHOUT ANY RESUMING OF RVR Diagnosis Primary Impression: Atrial fibrillation with RVR Patient Instructions: A-fib (Atrial Fibrillation) (ED), General Instructions Additional Instructions: PLEASE CALL DR TAFOYA AND MAKE A FOLLOW UP APPOINTMENT FOR FURTHER Disposition: 01 DISCHARGE HOME Condition: Stable Isaiah Muller MD May 03, 2017 00:38
[2017-05-03] MEDS ORDERED: SODIUM CHLORIDE 0.9% FLUSH 10 ML FLUSH IVF PRN (00:45)
[2017-05-03] MEDS ORDERED: DILTIAZEM HCL 25 MG/5 ML VIAL IV ONE ×2 (00:45→03:15)
[2017-05-03 01:23] LABS: AUTOMATED NEUTROPHIL # 5.2 TH/MM3 (1.8-7.7); BASOPHIL # 0.1 TH/MM3 (0-0.2); EOSINOPHIL # 0.1 TH/MM3 (0-0.4); EOSINOPHIL % 1.4 % (0.0-4.0); HEMATOCRIT 37.8 % (35.0-46.0); HEMO FLAGS DIFF FINAL; LYMPH % 25.5 % (9.0-44.0); LYMPHOCYTE # 2.1 TH/MM3 (1.0-4.8); MEAN CELL VOLUME 92.6 FL (80.0-100.0); MEAN CORPUSCULAR HEMOGLOBIN 32.5 PG (27.0-34.0); MEAN CORPUSCULAR HGB CONC 35.1 % (32.0-36.0); MONO % 10.6 % (0.0-8.0); NEUT % 61.5 % (16.0-70.0); PLATELET COUNT 296 TH/MM3 (150-450); RED BLOOD COUNT 4.08 MIL/MM3 (4.00-5.30); RED CELL DISTRIBUTION WIDTH 12.8 % (11.6-17.2); WHITE BLOOD COUNT 8.4 TH/MM3 (4.0-11.0)
--- NOTE | 2017-05-03 01:33 | RADRPT ---
EXAM DATE/TIME: 05/03/2017 01:07 [facility] COMPARISON: CHEST SINGLE AP, April 19, 2017, 6:00. INDICATIONS : Palpitations. MEDICAL HISTORY : Hypertension. A-Fib SURGICAL HISTORY : None. ENCOUNTER: Initial ACUITY: 1 day PAIN SCORE: 0/10 LOCATION: Bilateral chest FINDINGS: The cardiac silhouette is enlarged in transverse diameter. The lungs are free of acute parenchymal op acity. No effusions are identified. There is prominence of the aortic knob is with calcification karri acteristic of atherosclerotic vascular disease. There is subsegmental atelectasis in the left base. CONCLUSION: 1. Cardiomegaly. Subsegmental atelectasis left base. Robert Garza MD on May 03, 2017 at 1:31 Board Certified Radiologist. This report was verified electronically.
[2017-05-03 01:38] LABS: APTT (PATIENT) 21.5 SEC (24.3-30.1); PROTHROMBIN TIME - PATIENT 10.6 SEC (9.8-11.6)
[2017-05-03 01:46] LABS: ALKALINE PHOSPHATASE 74 U/L (45-117); ALT (GPT) 22 U/L (10-53); ANION GAP 8 MEQ/L (5-15); AST (GOT) 24 U/L (15-37); BICARBONATE 27.4 MEQ/L (21.0-32.0); BLOOD UREA NITROGEN 18 MG/DL (7-18); CHLORIDE 97 MEQ/L (98-107); GLOMERULAR FILTRATION RATE 51 ML/MIN (>89); POTASSIUM 3.5 MEQ/L (3.5-5.1); SODIUM (NA) 132 MEQ/L (136-145); TOTAL BILIRUBIN ADULT 0.6 MG/DL (0.2-1.0)
[2017-05-03 01:47] LABS: CREATINE KINASE 63 U/L (26-192)
--- NOTE | 2017-05-03 22:06 | EKG ---
Date Performed: 05/03/2017 Time Performed: 00:33:06 PTAGE: 81 years EKG: ATRIAL FIBRILLATION WITH RAPID VENTRICULAR RESPONSE NONSPECIFIC ST & T-WAVE ABNORMALITY ABN ORMAL RHYTHM ECG Compared to the PREVIOUS TRACING Sinus rhythm no longer present DOCTOR: Luciana Pollard Interpretating Date/Time 05/03/2017 22:06:01
== END 2017-05-03 04:43 | disposition home or self-care (01) ==
LOC: NEPC 00:02
DX: I48.91 Unspecified atrial fibrillation (principal); E78.00 Pure hypercholesterolemia, unspecified; I10 Essential (primary) hypertension; Z79.01 Long term (current) use of anticoagulants; R94.31 Abnormal electrocardiogram [ECG] [EKG]
CPT/HCPCS: 71010; 80053; 82550; 83880; 84484; 85025; 85610; 85730; 93005; 96374; 96376

== ENCOUNTER 2017-05-11 16:03 | Emergency (ER) | payer MEDICARE, BC ==
[~2017-05-11] VITALS: Ht 162.6 cm; Wt 68.0 kg
[2017-05-11 16:06] VITALS: BP 185/138; PULSE 115; RESP 14; TEMP 98.4; O2SAT 96
--- NOTE | 2017-05-11 16:13 | PD ---
Physical Exam Date Seen by Provider: May 11, 2017 Time Seen by Provider: 16:09 Narrative 81-year-old female patient of Dr. Nelson, presents with ongoing tachycardia with history of A. fib and weakness. Patient states she's had for at ablations in the past the last 12 weeks ago. Patient denies significant chest pain or shortness of breath just feels weak. Patient denies fever, chills , or other symptoms. Patient is allergic to sulfa, cephalosporins, Cipro, clonidine, fluoxetine, and latex. Data Data Last Documented VS Vital Signs Date Time Temp Pulse Resp B/P (MAP) Pulse Ox O2 Delivery O2 Flow Rate FiO2 05/11/17 16:06 98.4 115 14 185/138 (154) 96 MDM Medical Record Reviewed: Yes Supervised Visit with ADAMS: Yes Narrative Course Vital signs are reviewed. Cardiac protocols were ordered. Patient is awaiting a bed placement. Condition: Stable Madhu Singh May 11, 2017 16:13
[2017-05-11 17:02] LABS: AUTOMATED NEUTROPHIL # 4.6 TH/MM3 (1.8-7.7); BASOPHIL % 0.5 % (0.0-2.0); EOSINOPHIL # 0.1 TH/MM3 (0-0.4); EOSINOPHIL % 1.6 % (0.0-4.0); HEMATOCRIT 40.5 % (35.0-46.0); HEMO FLAGS DIFF FINAL; LYMPH % 25.6 % (9.0-44.0); LYMPHOCYTE # 1.9 TH/MM3 (1.0-4.8); MEAN CELL VOLUME 91.8 FL (80.0-100.0); MEAN CORPUSCULAR HEMOGLOBIN 32.6 PG (27.0-34.0); MEAN CORPUSCULAR HGB CONC 35.5 % (32.0-36.0); MONO % 10.9 % (0.0-8.0); NEUT % 61.4 % (16.0-70.0); PLATELET COUNT 293 TH/MM3 (150-450); RED BLOOD COUNT 4.41 MIL/MM3 (4.00-5.30); RED CELL DISTRIBUTION WIDTH 13.3 % (11.6-17.2); WHITE BLOOD COUNT 7.5 TH/MM3 (4.0-11.0)
[2017-05-11 17:04] LABS: APTT (PATIENT) 30.5 SEC (24.3-30.1); PROTHROMBIN TIME - PATIENT 11.1 SEC (9.8-11.6)
[2017-05-11 17:17] VITALS: BP 190/86; PULSE 74; RESP 18; O2SAT 99
--- NOTE | 2017-05-11 17:32 | RADRPT ---
EXAM DATE/TIME: 05/11/2017 17:03 [facility] COMPARISON: CHEST SINGLE AP, May 03, 2017, 1:07. INDICATIONS : Chest pain, short of breath, dizziness. MEDICAL HISTORY : Hypertension. afib SURGICAL HISTORY : 4 heart ablations ENCOUNTER: Initial ACUITY: 1 day PAIN SCORE: 3/10 LOCATION: Bilateral chest FINDINGS: The lungs are symmetrically aerated. There is a persistent area of opacity in the lower lateral left lung, atelectasis versus infiltrate. The right lung is clear. The heart is normal in size. Both h emidiaphragms are well delineated. CONCLUSION: Persistent atelectasis or infiltrate in the left lower lateral lung, unchanged from 05/03/17. Davian Ma MD on May 11, 2017 at 17:30 Board Certified Radiologist. This report was verified electronically.
[2017-05-11] MEDS ORDERED: RAMIPRIL 5 MG CAP PO ONE (17:45)
[2017-05-11 17:48] LABS: ALKALINE PHOSPHATASE 92 U/L (45-117); ALT (GPT) 24 U/L (10-53); ANION GAP 8 MEQ/L (5-15); AST (GOT) 21 U/L (15-37); BICARBONATE 27.2 MEQ/L (21.0-32.0); BLOOD UREA NITROGEN 11 MG/DL (7-18); CHLORIDE 94 MEQ/L (98-107); GLOMERULAR FILTRATION RATE 52 ML/MIN (>89); MAGNESIUM 2.1 MG/DL (1.5-2.5); SODIUM (NA) 129 MEQ/L (136-145); TOTAL BILIRUBIN ADULT 0.9 MG/DL (0.2-1.0)
[2017-05-11 17:57] LABS: CREATINE KINASE 63 U/L (26-192)
[2017-05-11 17:58] LABS: POTASSIUM 2.9 MEQ/L (3.5-5.1)
[2017-05-11] MEDS ORDERED: POTASSIUM CHLORIDE 10 MEQ CONTROLLED RELEASE TAB PO ONE (18:45)
[2017-05-11] MEDS ORDERED: POTA-163 PO (18:52)
--- NOTE | 2017-05-11 18:52 | PD ---
HPI Chief Complaint: General Weakness Time Seen by Provider: 17:21 Travel History International Travel<30 days: No Contact w/Intl Traveler<30days: No Traveled to known affect area: No History of Present Illness HPI C/O PALPITATIONS, irregular, sustained longer than usual, was sitting at the time of onset about 3hrs ago. she currently no longer feels the sensation. patient is well known to have afib hx s/p multiple ablations and currently anticoagulated on eliquis. denies any aggravating/alleviating factors. patient states she just saw her shed hand about 1 day ago and everything was fine, no changes were made to her medications. chart reviewed and rn notes reviewed cardio::dr boudreaux pcp:kassy tabor pmhx: afib s/p ablation, htn, high chol, hypothyroid on synthroid PFSH Past Medical History Hx Anticoagulant Therapy: Yes Arthritis: Yes (lower back) Asthma: No Atrial Fibrillation: Yes Autoimmune Disease: No Blood Disorders: No Anxiety: Yes Depression: Yes Heart Rhythm Problems: Yes (afib) Cancer: Yes (skin, left thigh and nose (removed)) Cardiac Catheterization: No Cardiovascular Problems: Yes High Cholesterol: Yes (controlled) Chemotherapy: No Chest Pain: No Congestive Heart Failure: No COPD: No Cerebrovascular Accident: No Diabetes: No Diminished Hearing: No Endocrine: No Gastrointestinal Disorders: No GERD: No Glaucoma: No Genitourinary: No Headaches: No Hepatitis: No Hiatal Hernia: No Heparin Induced Thrombocytopen: No Hypertension: Yes Immune Disorder: No Implanted Vascular Access Dvce: Yes Kidney Stones: No Musculoskeletal: Yes (DIFFICULTY WALKING R/T HIP SURGERIES) Neurologic: No Psychiatric: Yes Reproductive: No Respiratory: No Immunizations Current: Yes Migraines: No Myocardial Infarction: No Radiation Therapy: No Renal Failure: No Seizures: No Sickle Cell Disease: No Sleep Apnea: No Thyroid Disease: Yes Ulcer: No Tetanus Vaccination: > 5 Years Influenza Vaccination: Yes PNEUMOCCOCAL Vaccine (Year): 3 Menopausal: Yes : 2 Para: 1 Past Surgical History Abdominal Surgery: No AICD: No Appendectomy: No Arteriovenous Shunt: No Cardiac Surgery: Yes (ablation x4) Cholecystectomy: No Coronary Artery Bypass Graft: No Ear Surgery: No Endocrine Surgery: No Eye Surgery: No Genitourinary Surgery: No Gynecologic Surgery: Yes (hysterectomy) Hysterectomy: Yes Insulin Pump: No Joint Replacement: Yes (bilat hip) Neurologic Surgery: No Oral Surgery: No Pacemaker: No Thoracic Surgery: No Other Surgery: Yes (Skin CA removed fro forehead and leg) Family History Family Myocardial Infarction: Yes Social History Alcohol Use: No Tobacco Use: No (quit at 27 years of age) Substance Use: No Allergies-Medications (Allergen,Severity, Reaction): Coded Allergies: Sulfa (Sulfonamide Antibiotics) (Unverified Allergy, Severe, RASH, ) cefaclor (Unverified Allergy, Severe, RASH, 05/11/17) paroxetine (Unverified Allergy, Severe, 05/11/17) ciprofloxacin (Unverified Allergy, Unknown, GI UPSET, 05/11/17) clonidine (Unverified Allergy, Unknown, SKIN IRRITATION, 05/11/17) Uncoded Allergies: latex bandages (Adverse Reaction, Mild, SKIN REDNESS, RASH, 05/11/17) Reported Meds & Prescriptions Reported Meds & Active Scripts Active Potassium Chloride ER (Potassium Chloride) 20 Meq Tab 20 Meq PO BID 7 Days Reported Amiodarone (Amiodarone HCl) 200 Mg Tab 200 Mg PO DAILY Metoprolol Tartrate 25 Mg Tab 25 Mg PO BID Eliquis (Apixaban) 5 Mg Tab 5 Mg PO BID Estradiol Patch 168 HR (Estradiol) 0.025 Mg/24 Hr Patch 1 Patch T-DERMAL Q7D Remove old patch and discard when new patch being placed. Senna Plus 8.6-50 mg (Sennosides-Docusate Sodium) 1 Tab Tab 2 Tab PO DAILY Centrum (Multiple Vitamins W/ Minerals) 1 Chew 1 Tab CHEW DAILY Vitamin D3 (Cholecalciferol) 1,000 Unit Cap 1,000 Units PO DAILY Hydrochlorothiazide 25 Mg Tab 25 Mg PO DAILY Liothyronine (Liothyronine Sodium) 5 Mcg Tab 5 Mcg PO DAILY Lovastatin 20 Mg Tab 20 Mg PO DAILY Ramipril 10 Mg Cap 10 Mg PO BID Alprazolam 0.25 Mg Tab 0.25 Mg PO Q6H PRN Review of Systems Except as stated in HPI: all other systems reviewed are Neg General / Constitutional: No: Fever Eyes: No: Visual changes HENT: No: Headaches Cardiovascular: Positive: Palpitations Respiratory: No: Shortness of Breath Gastrointestinal: No: Abdominal Pain Genitourinary: No: Dysuria Musculoskeletal: No: Pain Skin: No Rash Neurologic: No: Weakness Psychiatric: No: Depression Endocrine: No: Polydipsia Hematologic/Lymphatic: No: Easy Bruising Physical Exam Narrative GENERAL: SKIN: Warm and dry. HEAD: Atraumatic. Normocephalic. EYES: Pupils equal and round. No scleral icterus. No injection or drainage. ENT: No nasal bleeding or discharge. Mucous membranes pink and moist. NECK: Trachea midline. No JVD. CARDIOVASCULAR: Regular rate and rhythm. RESPIRATORY: No accessory muscle use. Clear to auscultation. Breath sounds equal bilaterally. GASTROINTESTINAL: Abdomen soft, non-tender, nondistended. MUSCULOSKELETAL: Extremities without clubbing, cyanosis, or edema. No obvious deformities. NEUROLOGICAL: Awake and alert. No obvious cranial nerve deficits. Motor grossly within normal limits. Five out of 5 muscle strength in the arms and legs. Normal speech. PSYCHIATRIC: Appropriate mood and affect; insight and judgment normal. Data Data Last Documented VS Vital Signs Date Time Temp Pulse Resp B/P (MAP) Pulse Ox O2 Delivery O2 Flow Rate FiO2 05/11/17 19:07 64 20 153/76 (101) 96 05/11/17 17:17 Room Air 05/11/17 16:06 98.4 Orders Orders Electrocardiogram (05/11/17 16:13) B-Type Natriuretic Peptide (05/11/17 16:13) Ckmb (Isoenzyme) Profile (05/11/17 16:13) Complete Blood Count With Diff (05/11/17 16:13) Comprehensive Metabolic Panel (05/11/17 16:13) Magnesium (Mg) (05/11/17 16:13) Prothrombin Time / Inr (Pt) (05/11/17 16:13) Act Partial Throm Time (Ptt) (05/11/17 16:13) Troponin I (05/11/17 16:13) Chest, Single Ap (05/11/17 16:13) Ramipril (Altace) (05/11/17 17:45) Potassium Chloride (Kcl) (05/11/17 18:45) Ed Discharge Order (05/11/17 18:54) Labs Laboratory Tests Test 05/11/17 16:30 White Blood Count 7.5 TH/MM3 Red Blood Count 4.41 MIL/MM3 Hemoglobin 14.4 GM/DL Hematocrit 40.5 % Mean Corpuscular Volume 91.8 FL Mean Corpuscular Hemoglobin 32.6 PG Mean Corpuscular Hemoglobin Concent 35.5 % Red Cell Distribution Width 13.3 % Platelet Count 293 TH/MM3 Mean Platelet Volume 7.4 FL Neutrophils (%) (Auto) 61.4 % Lymphocytes (%) (Auto) 25.6 % Monocytes (%) (Auto) 10.9 % Eosinophils (%) (Auto) 1.6 % Basophils (%) (Auto) 0.5 % Neutrophils # (Auto) 4.6 TH/MM3 Lymphocytes # (Auto) 1.9 TH/MM3 Monocytes # (Auto) 0.8 TH/MM3 Eosinophils # (Auto) 0.1 TH/MM3 Basophils # (Auto) 0.0 TH/MM3 CBC Comment DIFF FINAL Differential Comment Prothrombin Time 11.1 SEC Prothromb Time International Ratio 1.0 RATIO Activated Partial Thromboplast Time 30.5 SEC Blood Urea Nitrogen 11 MG/DL Creatinine 1.02 MG/DL Random Glucose 133 MG/DL Total Protein 7.7 GM/DL Albumin 4.0 GM/DL Calcium Level 9.1 MG/DL Magnesium Level 2.1 MG/DL Alkaline Phosphatase 92 U/L Aspartate Amino Transf (AST/SGOT) 21 U/L Alanine Aminotransferase (ALT/SGPT) 24 U/L Total Bilirubin 0.9 MG/DL Sodium Level 129 MEQ/L Potassium Level 2.9 MEQ/L Chloride Level 94 MEQ/L Carbon Dioxide Level 27.2 MEQ/L Anion Gap 8 MEQ/L Estimat Glomerular Filtration Rate 52 ML/MIN Total Creatine Kinase 63 U/L Troponin I LESS THAN 0.02 NG/ML B-Type Natriuretic Peptide 244 PG/ML [facility] Medical Decision Making Medical Screen Exam Complete: Yes Emergency Medical Condition: Yes Medical Record Reviewed: Yes Interpretation(s) AFIB WITH MILD RVR IN 120'S, NO STEMI PATTERN Differential Diagnosis AFIB V ANEMIA V DEHYDRATION V ELECTROLYTE ABNL Narrative Course patient had spont converted to nsr, without any new runs of tachycardia...initiated po hypokalemia replacement. patient already appropriately anticoagulated,, advised to f/u with cardio to reconsider antiarrythmic readjustment...patient agrees and understands Diagnosis Primary Impression: RESOLVED A FIB WITH RVR Additional Impression: HYPOKALEMIA Patient Instructions: General Instructions, Heart Palpitations (ED), Hypokalemia (ED) Scripts Potassium Chloride ER (Potassium Chloride ER) 20 Meq Tab 20 MEQ PO BID for Electrolyte Replacement for 7 Days, #14 TAB 0 Refills Prov: Isaiah Muller MD 05/11/17 Disposition: 01 DISCHARGE HOME Condition: Stable Isaiah Muller MD May 11, 2017 18:52
[2017-05-11 19:07] VITALS: BP 153/76
--- NOTE | 2017-05-11 21:50 | EKG ---
Date Performed: 05/11/2017 Time Performed: 16:16:54 PTAGE: 81 years EKG: ECTOPIC ATRIAL TACHYCARDIA NONSPECIFIC ST & T-WAVE ABNORMALITY ABNORMAL ECG PREVIOUS TRACING : 05/03/2017 00.33 Compared to prior tracing no significant change DOCTOR: Luciana Pollard Interpretating Date/Time 05/11/2017 21:49:27
== END 2017-05-11 19:21 | disposition home or self-care (01) ==
LOC: NEPE 16:03
DX: I48.91 Unspecified atrial fibrillation (principal); E87.6 Hypokalemia; I47.1 Supraventricular tachycardia; R00.2 Palpitations; R94.31 Abnormal electrocardiogram [ECG] [EKG]; I10 Essential (primary) hypertension; E78.00 Pure hypercholesterolemia, unspecified; E03.9 Hypothyroidism, unspecified; F41.9 Anxiety disorder, unspecified
CPT/HCPCS: 71010; 80053; 82550; 83735; 83880; 84484; 85025; 85610; 85730; 93005; 99285

== ENCOUNTER 2017-06-01 11:09 | Inpatient (IN) | payer MEDICARE, BC ==
[~2017-06-01] VITALS: Ht 162.6 cm; Wt 66.4 kg
[2017-06-01] VITALS (12 sets, daily range): BP systolic 142–171; BP diastolic 92–101; PULSE 78–131; RESP 14–18; TEMP 97.8–98.1; O2SAT 95–99
[~2017-06-01 11:09] MED LIST changes: +CHOL10008 PO; +POTA-163 PO; -VITA100036 PO
[2017-06-01] MEDS ORDERED: SODIUM CHLORIDE 0.9% FLUSH 10 ML FLUSH IVF PRN (12:30)
--- NOTE | 2017-06-01 12:30 | PD ---
HPI Chief Complaint: Cardiac Complaint Time Seen by Provider: 12:11 Travel History International Travel<30 days: No Contact w/Intl Traveler<30days: No Traveled to known affect area: No History of Present Illness HPI 81-year-old female with PMH of A. fib status post ablation [address] Rincon on focused presents to the ED for evaluation of one week history of tachycardia. Patient states that this is different from her previous symptoms of A. fib. She states that that she could feel irregular heartbeats and had pain in her neck with A. fib in the past. On presentation she denies palpitations, shortness of breath, chest pain, nausea, vomiting, diaphoresis. She states she' s been in normal state of health and denies abdominal pain, changes in bowel habits, dysuria, lower extremity edema or weakness. She states that she contacted Dr. Rincon's office who instructed her to come to the emergency room today. PCP Dr. Reyes. [facility] Past Medical History Hx Anticoagulant Therapy: Yes Arthritis: Yes (lower back) Asthma: No Atrial Fibrillation: Yes Autoimmune Disease: No Blood Disorders: No Anxiety: Yes Depression: Yes Heart Rhythm Problems: Yes (afib) Cancer: Yes (skin, left thigh and nose (removed)) Cardiac Catheterization: No Cardiovascular Problems: Yes High Cholesterol: Yes (controlled) Chemotherapy: No Chest Pain: No Congestive Heart Failure: No COPD: No Cerebrovascular Accident: No Diabetes: No Diminished Hearing: No Endocrine: No Gastrointestinal Disorders: No GERD: No Glaucoma: No Genitourinary: No Headaches: No Hepatitis: No Hiatal Hernia: No Heparin Induced Thrombocytopen: No Hypertension: Yes Immune Disorder: No Implanted Vascular Access Dvce: Yes Kidney Stones: No Musculoskeletal: Yes Neurologic: No Psychiatric: Yes Reproductive: No Respiratory: No Immunizations Current: Yes Migraines: No Myocardial Infarction: No Radiation Therapy: No Renal Failure: No Seizures: No Sickle Cell Disease: No Sleep Apnea: No Thyroid Disease: Yes Ulcer: No Tetanus Vaccination: Unknown PNEUMOCCOCAL Vaccine (Year): 3 Menopausal: Yes : 2 Para: 1 Past Surgical History Abdominal Surgery: No AICD: No Appendectomy: No Arteriovenous Shunt: No Cardiac Surgery: Yes (ablation x4) Cholecystectomy: No Coronary Artery Bypass Graft: No Ear Surgery: No Endocrine Surgery: No Eye Surgery: No Genitourinary Surgery: No Gynecologic Surgery: Yes (hysterectomy) Hysterectomy: Yes Insulin Pump: No Joint Replacement: Yes (bilat hip) Neurologic Surgery: No Oral Surgery: No Pacemaker: No Thoracic Surgery: No Other Surgery: Yes (Skin CA removed fro forehead and leg) Family History Family Myocardial Infarction: Yes Social History Alcohol Use: No Tobacco Use: No (quit at 27 years of age) Substance Use: No Allergies-Medications (Allergen,Severity, Reaction): Coded Allergies: Sulfa (Sulfonamide Antibiotics) (Unverified Allergy, Severe, RASH, ) cefaclor (Unverified Allergy, Severe, RASH, 06/01/17) paroxetine (Unverified Allergy, Severe, 06/01/17) ciprofloxacin (Unverified Allergy, Unknown, GI UPSET, 06/01/17) clonidine (Unverified Allergy, Unknown, SKIN IRRITATION, 06/01/17) Uncoded Allergies: latex bandages (Adverse Reaction, Mild, SKIN REDNESS, RASH, 05/11/17) Reported Meds & Prescriptions Reported Meds & Active Scripts Active Reported Centrum Silver Adult 50+ (Multiple Vitamins W/ Minerals) 0.4 Mg-300 Mcg-250 Mcg Tab 1 Tab PO DAILY Amiodarone (Amiodarone HCl) 200 Mg Tab 200 Mg PO DAILY Metoprolol Tartrate 25 Mg Tab 25 Mg PO BID Eliquis (Apixaban) 5 Mg Tab 5 Mg PO BID Estradiol Patch 168 HR (Estradiol) 0.025 Mg/24 Hr Patch 1 Patch T-DERMAL Q7D Remove old patch and discard when new patch being placed. Senna Plus 8.6-50 mg (Sennosides-Docusate Sodium) 1 Tab Tab 2 Tab PO DAILY Vitamin D3 (Cholecalciferol) 1,000 Unit Cap 1,000 Units PO DAILY Hydrochlorothiazide 25 Mg Tab 25 Mg PO DAILY Liothyronine (Liothyronine Sodium) 5 Mcg Tab 5 Mcg PO DAILY Lovastatin 20 Mg Tab 20 Mg PO DAILY Ramipril 10 Mg Cap 10 Mg PO BID Alprazolam 0.25 Mg Tab 0.25 Mg PO Q6H PRN Review of Systems Except as stated in HPI: all other systems reviewed are Neg Physical Exam Narrative GENERAL: Well-nourished, well-developed pleasant white female in no acute distress. SKIN: Focused skin assessment warm/dry. Multiple ecchymosis over the skin surface in various stages of healing. HEAD: Normocephalic. EYES: No scleral icterus. No injection or drainage. NECK: Supple, trachea midline. + JVD. No lymphadenopathy. CARDIOVASCULAR: Tachycardic rate and regular rhythm without murmurs, gallops, or rubs. RESPIRATORY: Breath sounds clear and equal bilaterally. No accessory muscle use. GASTROINTESTINAL: Abdomen soft, non-tender, nondistended. MUSCULOSKELETAL: No cyanosis, or edema. BACK: Nontender without obvious deformity. No CVA tenderness. Data Data Last Documented VS Vital Signs Date Time Temp Pulse Resp B/P (MAP) Pulse Ox O2 Delivery O2 Flow Rate FiO2 06/01/17 13:51 88 06/01/17 13:49 16 97 06/01/17 12:31 Room Air 06/01/17 11:12 97.8 Orders Orders Electrocardiogram (06/01/17 11:53) Ckmb (Isoenzyme) Profile (06/01/17 12:24) Complete Blood Count With Diff (06/01/17 12:24) Comprehensive Metabolic Panel (06/01/17 12:24) Magnesium (Mg) (06/01/17 12:24) Prothrombin Time / Inr (Pt) (06/01/17 12:24) Act Partial Throm Time (Ptt) (06/01/17 12:24) Troponin I (06/01/17 12:24) Chest, Single Ap (06/01/17 12:24) Ecg Monitoring (06/01/17 12:24) Bilateral Bp Monitoring (06/01/17 12:24) Iv Access Insert/Monitor (06/01/17 12:24) Oximetry (06/01/17 12:24) Sodium Chloride 0.9% Flush (Ns Flush) (06/01/17 12:30) Diltiazem Inj (Cardizem Inj) (06/01/17 13:30) Sodium Chlorid 0.9% 500 Ml Inj (Ns 500 M (06/01/17 14:00) Thyroid Stimulating Hormone (06/01/17 13:57) Consult Cardiology (06/01/17 ) (Hub Use Only)Inp Phy Cons/Ref (06/01/17 ) Admit Order (Ed Use Only) (06/01/17 14:24) Labs Laboratory Tests Test 06/01/17 12:20 White Blood Count 7.0 TH/MM3 Red Blood Count 4.24 MIL/MM3 Hemoglobin 13.7 GM/DL Hematocrit 38.9 % Mean Corpuscular Volume 91.8 FL Mean Corpuscular Hemoglobin 32.3 PG Mean Corpuscular Hemoglobin Concent 35.2 % Red Cell Distribution Width 13.1 % Platelet Count 277 TH/MM3 Mean Platelet Volume 7.3 FL Neutrophils (%) (Auto) 66.9 % Lymphocytes (%) (Auto) 21.1 % Monocytes (%) (Auto) 10.2 % Eosinophils (%) (Auto) 1.3 % Basophils (%) (Auto) 0.5 % Neutrophils # (Auto) 4.7 TH/MM3 Lymphocytes # (Auto) 1.5 TH/MM3 Monocytes # (Auto) 0.7 TH/MM3 Eosinophils # (Auto) 0.1 TH/MM3 Basophils # (Auto) 0.0 TH/MM3 CBC Comment DIFF FINAL Differential Comment Prothrombin Time 10.9 SEC Prothromb Time International Ratio 1.0 RATIO Activated Partial Thromboplast Time 29.6 SEC Blood Urea Nitrogen 19 MG/DL Creatinine 0.99 MG/DL Random Glucose 126 MG/DL Total Protein 6.7 GM/DL Albumin 3.5 GM/DL Calcium Level 8.8 MG/DL Magnesium Level 2.0 MG/DL Alkaline Phosphatase 71 U/L Aspartate Amino Transf (AST/SGOT) 22 U/L Alanine Aminotransferase (ALT/SGPT) 26 U/L Total Bilirubin 0.6 MG/DL Sodium Level 125 MEQ/L Potassium Level 3.2 MEQ/L Chloride Level 93 MEQ/L Carbon Dioxide Level 23.0 MEQ/L Anion Gap 9 MEQ/L Estimat Glomerular Filtration Rate 54 ML/MIN Total Creatine Kinase 59 U/L Troponin I LESS THAN 0.02 NG/ML Thyroid Stimulating Hormone 3rd Gen 4.300 uIU/ML MDM Medical Decision Making Medical Screen Exam Complete: Yes Emergency Medical Condition: Yes Differential Diagnosis Arrhythmia versus ACS versus metabolic derangement versus other Narrative Course 81-year-old female with PMH of A. fib status post ablation [address] Rincon on focused presents to the ED for evaluation of one week history of tachycardia. Denies palpitations, shortness of breath, chest pain, nausea, vomiting, diaphoresis. States she is otherwise been feeling well. Contacted Dr. Rincon's office and was instructed to come to the emergency room. PCP Dr. Reyes. Heart rate 131 on presentation. Physical exam is unremarkable. Patient was administered 15 mg diltiazem IV. EKG rate 123, sinus tachycardia with first-degree AV block. ID interval 220 ms. QRS 92, QTC 266. Normal axis. No acute ST changes. Reviewed by . Troponin negative 1. CXR: No acute disease per radiology read. CBC: Unremarkable. CMP: Dehydration with mild hyponatremia and mild hypokalemia. TSH: 4.[address] Rincon by phone who recommends observation in the medicine service and will see the patient overnight. Cardiology consult placed. I spoke with Dr. Mendoza who agrees to accept the patient to the medicine service. Please see medicine and cardiology notes for disposition Svitlana Mccurdy Jun 01, 2017 12:30
[2017-06-01] MEDS ORDERED: MULT1TAB PO (12:40)
[2017-06-01 12:46] LABS: AUTOMATED NEUTROPHIL # 4.7 TH/MM3 (1.8-7.7); BASOPHIL % 0.5 % (0.0-2.0); EOSINOPHIL # 0.1 TH/MM3 (0-0.4); EOSINOPHIL % 1.3 % (0.0-4.0); HEMATOCRIT 38.9 % (35.0-46.0); HEMO FLAGS DIFF FINAL; LYMPH % 21.1 % (9.0-44.0); LYMPHOCYTE # 1.5 TH/MM3 (1.0-4.8); MEAN CELL VOLUME 91.8 FL (80.0-100.0); MEAN CORPUSCULAR HEMOGLOBIN 32.3 PG (27.0-34.0); MEAN CORPUSCULAR HGB CONC 35.2 % (32.0-36.0); MONO % 10.2 % (0.0-8.0); NEUT % 66.9 % (16.0-70.0); PLATELET COUNT 277 TH/MM3 (150-450); RED BLOOD COUNT 4.24 MIL/MM3 (4.00-5.30); RED CELL DISTRIBUTION WIDTH 13.1 % (11.6-17.2)
[2017-06-01 12:57] LABS: APTT (PATIENT) 29.6 SEC (24.3-30.1); PROTHROMBIN TIME - PATIENT 10.9 SEC (9.8-11.6)
[2017-06-01 12:59] LABS: ANION GAP 9 MEQ/L (5-15); AST (GOT) 22 U/L (15-37); BLOOD UREA NITROGEN 19 MG/DL (7-18); CHLORIDE 93 MEQ/L (98-107); GLOMERULAR FILTRATION RATE 54 ML/MIN (>89); POTASSIUM 3.2 MEQ/L (3.5-5.1); SODIUM (NA) 125 MEQ/L (136-145)
[2017-06-01 13:06] LABS: ALKALINE PHOSPHATASE 71 U/L (45-117); ALT (GPT) 26 U/L (10-53); TOTAL BILIRUBIN ADULT 0.6 MG/DL (0.2-1.0)
[2017-06-01 13:08] LABS: CREATINE KINASE 59 U/L (26-192)
--- NOTE | 2017-06-01 13:17 | RADRPT ---
EXAM DATE/TIME: 06/01/2017 12:51 [facility] COMPARISON: CHEST SINGLE AP, May 11, 2017, 17:03. INDICATIONS : Rapid heart beat today MEDICAL HISTORY : Hypertension. A-fib SURGICAL HISTORY : ablation x 4 ENCOUNTER: Initial ACUITY: 1 day PAIN SCORE: 0/10 LOCATION: Bilateral chest FINDINGS: A single view of the chest demonstrates the lungs to be symmetrically aerated without evidence of mas s, infiltrate or effusion. The cardiomediastinal contours are unremarkable. Osseous structures are intact. CONCLUSION: No acute disease. Davian Montoya Jr., MD on June 01, 2017 at 13:15 Board Certified Radiologist. This report was verified electronically.
[2017-06-01] MEDS ORDERED: DILTIAZEM HCL 25 MG/5 ML VIAL IV ONE ×2 (13:30→15:30)
[2017-06-01] MEDS ORDERED: SODIUM CHLORID 0.9% 500 ML INJ 500 ML IV ONE (14:00)
[2017-06-01] MEDS ORDERED: NALOXONE HCL 0.4 MG/ML AMP IV PUSH PRN (14:30)
[2017-06-01] MEDS ORDERED: SODIUM CHLORIDE 0.9% FLUSH 10 ML FLUSH IV FLUSH PRN (14:30)
[2017-06-01] MEDS ORDERED: POTASSIUM CHLORIDE 20 MEQ CONTROLLED RELEASE TAB PO ONE (14:30)
--- NOTE | 2017-06-01 14:54 | HHI.HP ---
[facility] Champ Reyes MD Admission Diagnosis tachycardia, hx a fib Diagnoses: Travel History International Travel<30 Days: No Contact w/Intl Traveler <30 Da: No Traveled to Known Affected Are: No History of Present Illness hx from patient, ER PRESCHOOL DIRECTOR communication and review of med records palpitations for about a week now, about 130-127 at home she thought she was told to wait till 140 or over , so she waited for her doctors' appointment for a whole week while symptomatic called her doc today am, who told to come to hospital and clarified her to come to hospital if HR>120 no chest pain no dyspnea felt like there was cotton in my chest no dizziness, no sweating, little nausea towards the end , no syncope drove her here ablation early apr 2017- ablation no fever no nasuea/. no vomiting no bleeding in stool or urine- on eliquis at home no recent major apart from ablation, no long distance travels Review of Systems Except as stated in HPI: all other systems reviewed are Neg Past Family Social History Past Medical History Hypertension Atrial fibrillation with 3 ablations Chronic Kidney Disease Hypothyroidism Basal cell on legs Denies diabetes mellitus, CAD, emphysema, asthma, liver problems, DVT, CVA, seizures, cancers . Past Surgical History Ablations x 4 Hysterectomy at age 52 y/o Biopsy of leg lesions Allergies: Coded Allergies: Sulfa (Sulfonamide Antibiotics) (Unverified Allergy, Severe, RASH, ) cefaclor (Unverified Allergy, Severe, RASH, 06/01/17) paroxetine (Unverified Allergy, Severe, 06/01/17) ciprofloxacin (Unverified Allergy, Unknown, GI UPSET, 06/01/17) clonidine (Unverified Allergy, Unknown, SKIN IRRITATION, 06/01/17) Uncoded Allergies: latex bandages (Adverse Reaction, Mild, SKIN REDNESS, RASH, 05/11/17) Family History reports diabetes and heart disease in family Social History denies smoking/ denies etoh abuse or drug abuse Physical Exam Vital Signs Vital Signs Date Time Temp Pulse Resp B/P (MAP) Pulse Ox O2 Delivery O2 Flow Rate FiO2 06/01/17 13:51 88 06/01/17 13:49 100 16 146/93 (110) 97 06/01/17 13:40 130 06/01/17 12:31 06/01/17 12:31 99 Room Air 06/01/17 11:12 97.8 131 18 171/94 (119) 95 Physical Exam GENERAL: This is a well-nourished, well-developed patient, in no apparent distress. SKIN: No rashes, ecchymoses or lesions. Cool and dry. HEAD: Atraumatic. Normocephalic. No temporal or scalp tenderness. EYES: No scleral icterus. No injection or drainage. ENT: Nose without bleeding, purulent drainage or septal hematoma.Airway patent. NECK: Trachea midline. No JVD CARDIOVASCULAR: Regular rate and rhythm without murmurs, gallops, or rubs. RESPIRATORY: Clear to auscultation. Breath sounds equal bilaterally. No wheezes , rales, or rhonchi. GASTROINTESTINAL: Abdomen soft, non-tender, nondistended. . No guarding. MUSCULOSKELETAL: Extremities without clubbing, cyanosis, or edema. No calf tenderness. NEUROLOGICAL: Awake and alert. Motor and sensory grossly within normal limits. Normal speech. Laboratory Laboratory Tests Test 06/01/17 12:20 06/01/17 13:57 White Blood Count 7.0 Red Blood Count 4.24 Hemoglobin 13.7 Hematocrit 38.9 Mean Corpuscular Volume 91.8 Mean Corpuscular Hemoglobin 32.3 Mean Corpuscular Hemoglobin Concent 35.2 Red Cell Distribution Width 13.1 Platelet Count 277 Mean Platelet Volume 7.3 Neutrophils (%) (Auto) 66.9 Lymphocytes (%) (Auto) 21.1 Monocytes (%) (Auto) 10.2 Eosinophils (%) (Auto) 1.3 Basophils (%) (Auto) 0.5 Neutrophils # (Auto) 4.7 Lymphocytes # (Auto) 1.5 Monocytes # (Auto) 0.7 Eosinophils # (Auto) 0.1 Basophils # (Auto) 0.0 CBC Comment DIFF FINAL Differential Comment Prothrombin Time 10.9 Prothromb Time International Ratio 1.0 Activated Partial Thromboplast Time 29.6 Blood Urea Nitrogen 19 Creatinine 0.99 Random Glucose 126 Total Protein 6.7 Albumin 3.5 Calcium Level 8.8 Magnesium Level 2.0 Alkaline Phosphatase 71 Aspartate Amino Transf (AST/SGOT) 22 Alanine Aminotransferase (ALT/SGPT) 26 Total Bilirubin 0.6 Sodium Level 125 Potassium Level 3.2 Chloride Level 93 Carbon Dioxide Level 23.0 Anion Gap 9 Estimat Glomerular Filtration Rate 54 Total Creatine Kinase 59 Troponin I LESS THAN 0.02 Result Diagram: 06/01/17 1220 06/01/17 1220 Imaging Last 48 hours Impressions Chest X-Ray 06/01/17 1224 Signed Impressions: Service Date/Time: Thursday, June 01, 2017 12:51 - CONCLUSION: No acute disease. MD Marla Machado Jr. VTE Risk Assessment Caprinmadonna VTE Risk Assessment: Mod/High Risk (score >= 2) Caprini Risk Assessment Model Point Value = 1 Point Value = 2 Point Value = 3 Point Value = 5 Age 41-60 Minor surgery BMI > 25 kg/m2 Swollen legs Varicose veins or History of unexplained or recurrent spontaneous Oral contraceptives or hormone replacement Sepsis (< 1 month) Serious lung disease, including pneumonia (< 1 month) Abnormal pulmonary function Acute myocardial infarction Congestive heart failure (< 1 month) History of inflammatory bowel disease Medical patient at bed rest Age 61-74 Arthroscopic surgery Major open surgery (> 45 min) Laparoscopic surgery (> 45 min) Malignancy Confined to bed (> 72 hours) Immobilizing plaster cast Central venous access Age >= 75 History of VTE Family history of VTE Factor V Leiden Prothrombin [id number] Lupus anticoagulant Anticardiolipin antibodies Elevated serum homocysteine Heparin-induced thrombocytopenia Other congenital or acquired thrombophilia Stroke (< 1 month) Elective arthroplasty Hip, pelvis, or leg fracture Acute spinal cord injury (< 1 month) Prophylaxis Regimen Total Risk Factor Score Risk Level Prophylaxis Regimen 0-1 Low Early ambulation 2 Moderate Order ONE of the following: *Sequential Compression Device (SCD) *Heparin 5000 units SQ BID 3-4 Higher Order ONE of the following medications: *Heparin 5000 units SQ TID *Enoxaparin/Lovenox 40 mg SQ daily (WT < 150 kg, CrCl > 30 mL/min) *Enoxaparin/Lovenox 30 mg SQ daily (WT < 150 kg, CrCl > 10-29 mL/min) *Enoxaparin/Lovenox 30 mg SQ BID (WT < 150 kg, CrCl > 30 mL/min) AND/OR *Sequential Compression Device (SCD) 5 or more Highest Order ONE of the following medications: *Heparin 5000 units SQ TID (Preferred with Epidurals) *Enoxaparin/Lovenox 40 mg SQ daily (WT < 150 kg, CrCl > 30 mL/min) *Enoxaparin/Lovenox 30 mg SQ daily (WT < 150 kg, CrCl > 10-29 mL/min) *Enoxaparin/Lovenox 30 mg SQ BID (WT < 150 kg, CrCl > 30 mL/min) AND *Sequential Compression Device (SCD) Assessment and Plan Assessment and Plan Impression: afib with rvr hypokalemia possible mild dehydration due to hctz use Hypertension Atrial fibrillation with 3 ablations Chronic Kidney Disease Hypothyroidism Basal cell on legs Plan: pt was given cardizem 15mg iv bolus in ER after which she initially converted. this was around 340p.m. HR now back to 130 again try second dose of cardizem 15mg iv iv fluid bolus 500cc replace kcl 40meq if no improvement, will start on drip cardio consult with her tower control operator resume home meds heart rate came down to 80 after second bolus but became elevated again and sustained at 128-130 thus started on cardizem drip Discussed Condition With patient, ER PRESCHOOL DIRECTOR, nursing staff Estefany Mendoza MD Jun 01, 2017 14:54
[2017-06-01] MEDS: ALPRAZolam 0.25 MG TAB PO PRN ×2 (16:15→21:48)
[2017-06-01] MEDS ORDERED: DILTIAZEM HCL 25 MG/5 ML VIAL IV PUSH ONE (19:30)
[2017-06-01] MEDS ORDERED: DILTIAZEM INJ 125 MG in SODIUM CHLORIDE 0.9% INJ 100 ML IV PRN (20:00)
--- NOTE | 2017-06-01 21:19 | EKG ---
Date Performed: 06/01/2017 Time Performed: 11:57:39 PTAGE: 81 years EKG: SINUS TACHYCARDIA NONSPECIFIC ST & T-WAVE ABNORMALITY ABNORMAL ECG PREVIOUS TRACING : 05/11/2017 16.16 Compared to prior tracing no significant change DOCTOR: Luciana Pollard Interpretating Date/Time 06/01/2017 21:18:27
[2017-06-01] MEDS: METOPROLOL TARTRATE 25 MG TAB PO SCH (21:35)
[2017-06-01] MEDS: RAMIPRIL 5 MG CAP PO SCH (21:35)
[2017-06-01] MEDS: APIXABAN 5 MG TABLET PO SCH (21:35)
[2017-06-01] MEDS: SODIUM CHLORIDE 0.9% FLUSH 10 ML FLUSH IV FLUSH SCH (21:36)
[2017-06-02] VITALS (17 sets, daily range): BP systolic 118–146; BP diastolic 72–109; PULSE 81–124; RESP 18–20; TEMP 96.8–97.8; O2SAT 97–98
[2017-06-02] MEDS: LIOTHYRONINE SODIUM 5 MCG TAB PO SCH (04:43)
[2017-06-02 06:22] LABS: AUTOMATED NEUTROPHIL # 4.4 TH/MM3 (1.8-7.7); BASOPHIL % 0.6 % (0.0-2.0); EOSINOPHIL # 0.1 TH/MM3 (0-0.4); EOSINOPHIL % 1.5 % (0.0-4.0); HEMATOCRIT 38.3 % (35.0-46.0); HEMO FLAGS DIFF FINAL; LYMPH % 27.2 % (9.0-44.0); MEAN CELL VOLUME 92.9 FL (80.0-100.0); MEAN CORPUSCULAR HEMOGLOBIN 31.7 PG (27.0-34.0); MEAN CORPUSCULAR HGB CONC 34.1 % (32.0-36.0); MONO % 11.2 % (0.0-8.0); NEUT % 59.5 % (16.0-70.0); PLATELET COUNT 264 TH/MM3 (150-450); RED BLOOD COUNT 4.12 MIL/MM3 (4.00-5.30); RED CELL DISTRIBUTION WIDTH 13.4 % (11.6-17.2); WHITE BLOOD COUNT 7.5 TH/MM3 (4.0-11.0)
[2017-06-02 07:08] LABS: BICARBONATE 25.2 MEQ/L (21.0-32.0); POTASSIUM 3.4 MEQ/L (3.5-5.1)
[2017-06-02] MEDS: AMIODARONE 200 MG TAB PO SCH (08:33)
[2017-06-02] MEDS: PRAVASTATIN SOD 20 MG TAB PO SCH (08:34)
[2017-06-02] MEDS: METOPROLOL TARTRATE 25 MG TAB PO SCH ×2 (08:34→21:57)
[2017-06-02] MEDS: APIXABAN 5 MG TABLET PO SCH ×2 (08:34→21:57)
[2017-06-02] MEDS: SODIUM CHLORIDE 0.9% FLUSH 10 ML FLUSH IV FLUSH SCH ×2 (08:35→21:55)
[2017-06-02] MEDS ORDERED: POTASSIUM CHLORIDE 20 MEQ PWD PACKET PO ONE (09:00)
[2017-06-02] MEDS: RAMIPRIL 5 MG CAP PO SCH ×2 (09:00→21:57)
[2017-06-02] MEDS ORDERED: DILTIAZEM-CD 180 MG CAP ER PO ONE (10:00)
--- NOTE | 2017-06-02 10:08 | HHI.PR ---
Subjective Remarks Rate control improved. Most readings are falling below 100 and this point. Patient does have some transient tachycardia when she ambulates but this is not sustained. No complaints of chest pain. No palpitations. She feels back to baseline. Objective Vital Signs Date Time Temp Pulse Resp B/P (MAP) Pulse Ox O2 Delivery O2 Flow Rate FiO2 06/02/17 06:01 90 06/02/17 05:01 96 06/02/17 04:01 91 06/02/17 03:01 97.8 89 18 119/81 (94) 98 06/02/17 03:01 89 06/02/17 02:01 86 06/02/17 01:01 86 06/02/17 00:01 83 06/02/17 00:01 97.6 81 18 118/78 (91) 98 06/01/17 23:01 92 06/01/17 23:01 92 06/01/17 23:01 92 06/01/17 22:40 98.1 103 18 154/98 (116) 98 06/01/17 22:01 83 06/01/17 21:01 78 06/01/17 19:45 06/01/17 19:18 129 14 153/101 (118) 97 Room Air 06/01/17 18:25 128 16 154/96 (115) 97 Room Air 06/01/17 16:45 102 18 142/92 (109) 99 06/01/17 13:51 88 06/01/17 13:49 100 16 146/93 (110) 97 06/01/17 13:40 130 06/01/17 12:31 06/01/17 12:31 99 Room Air 06/01/17 11:12 97.8 131 18 171/94 (119) 95 I/O 06/01/17 06/01/17 06/01/17 06/02/17 06/02/17 06/02/17 07:00 15:00 23:00 07:00 15:00 23:00 Intake Total 500 ml 282 ml Balance 500 ml 282 ml Intake Oral 240 ml IV Total 500 ml 42 ml # Voids 2 # Bowel Movements 0 Result Diagram: 06/02/17 0500 06/02/17 0500 Objective Remarks GENERAL: NAD, A&Ox3 HEAD: Normocephalic. NECK: Supple, trachea midline. No lymphadenopathy. EYES: No scleral icterus. No injection or drainage. CARDIOVASCULAR: Irregularly irregular rate and rhythm without murmurs, gallops, or rubs. RESPIRATORY: Breath sounds equal bilaterally. No accessory muscle use. GASTROINTESTINAL: Abdomen soft, non-tender, nondistended. MUSCULOSKELETAL: No cyanosis, or edema. SKIN: Warm and dry. NEURO: No focal neurological deficitis. A/P Problem List: (1) Atrial fibrillation with RVR ICD Code: I48.91 - Unspecified atrial fibrillation Status: Acute (2) Palpitations ICD Code: R00.2 - Palpitations Status: Acute Assessment and Plan Assessment and Plan 81-year-old female with history of A. fib with RVR and a history of previous ablations, admitted secondary to A. fib RVR. A. fib RVR Improved on Cardizem drip Transitioned to by mouth Cardizem Monitor for stability Cardiology following Continue Eliquis Continue Amiodarone Continue Metoprolol Hypokalemia May have been contributory Improved with replacement Continue to replace as needed Hypertension Continue baseline treatments Cardizem has been started Follow blood pressures Chronic Kidney Disease Improved with hydration Now at baseline Dehydration component was likely present Discontinue IV hydration Hypothyroidism Continue supplementation Follows in outpatient DVT prophylaxis Froy Meehan MD Jun 02, 2017 10:08
[2017-06-02] MEDS ORDERED: DOCUSATE SODIUM 50 MG/SENNA 8.6 MG TAB PO ONE (13:15)
[2017-06-02] MEDS: ALPRAZolam 0.25 MG TAB PO PRN ×2 (13:27→21:57)
[2017-06-02] MEDS: DOCUSATE SODIUM 50 MG/SENNA 8.6 MG TAB PO PRN (22:06)
[2017-06-03] VITALS (25 sets, daily range): BP systolic 107–139; BP diastolic 66–98; PULSE 66–132; RESP 18–20; TEMP 97–97.9; O2SAT 95–98
[2017-06-03] MEDS: LIOTHYRONINE SODIUM 5 MCG TAB PO SCH (05:58)
[2017-06-03 07:04] LABS: AUTOMATED NEUTROPHIL # 4.6 TH/MM3 (1.8-7.7); BASOPHIL % 0.6 % (0.0-2.0); EOSINOPHIL # 0.2 TH/MM3 (0-0.4); EOSINOPHIL % 2.6 % (0.0-4.0); HEMATOCRIT 36.3 % (35.0-46.0); HEMO FLAGS DIFF FINAL; LYMPH % 20.6 % (9.0-44.0); LYMPHOCYTE # 1.4 TH/MM3 (1.0-4.8); MEAN CELL VOLUME 92.4 FL (80.0-100.0); MEAN CORPUSCULAR HEMOGLOBIN 32.9 PG (27.0-34.0); MEAN CORPUSCULAR HGB CONC 35.6 % (32.0-36.0); MONO % 10.5 % (0.0-8.0); NEUT % 65.7 % (16.0-70.0); PLATELET COUNT 252 TH/MM3 (150-450); RED BLOOD COUNT 3.93 MIL/MM3 (4.00-5.30); RED CELL DISTRIBUTION WIDTH 13.2 % (11.6-17.2)
[2017-06-03 07:38] LABS: ALT (GPT) 23 U/L (10-53); ANION GAP 9 MEQ/L (5-15); AST (GOT) 22 U/L (15-37); BICARBONATE 24.8 MEQ/L (21.0-32.0); BLOOD UREA NITROGEN 15 MG/DL (7-18); CHLORIDE 101 MEQ/L (98-107); GLOMERULAR FILTRATION RATE 63 ML/MIN (>89); POTASSIUM 3.6 MEQ/L (3.5-5.1); SODIUM (NA) 135 MEQ/L (136-145)
[2017-06-03 07:47] LABS: ALKALINE PHOSPHATASE 66 U/L (45-117); FREE T3 2.15 PG/ML (2.18-3.98); THYROXINE (T4) 12.7 MCG/DL (4.8-13.9); TOTAL BILIRUBIN ADULT 0.7 MG/DL (0.2-1.0)
[2017-06-03] MEDS ORDERED: DILTIAZEM-CD 180 MG CAP ER PO SCH (09:00)
[2017-06-03] MEDS: PRAVASTATIN SOD 20 MG TAB PO SCH (09:11)
[2017-06-03] MEDS: METOPROLOL TARTRATE 25 MG TAB PO SCH ×3 (09:11→19:28)
[2017-06-03] MEDS: APIXABAN 5 MG TABLET PO SCH ×2 (09:12→20:36)
[2017-06-03] MEDS: RAMIPRIL 5 MG CAP PO SCH ×2 (09:12→20:36)
[2017-06-03] MEDS: AMIODARONE 200 MG TAB PO SCH (09:12)
[2017-06-03] MEDS: SODIUM CHLORIDE 0.9% FLUSH 10 ML FLUSH IV FLUSH SCH ×2 (09:13→20:37)
[2017-06-03] MEDS ORDERED: DIGOXIN 0.5 MG/2 ML VIAL IV PUSH ONE (11:30)
--- NOTE | 2017-06-03 11:40 | HHI.PR ---
Subjective Remarks I had a good night Objective Vital Signs Date Time Temp Pulse Resp B/P (MAP) Pulse Ox O2 Delivery O2 Flow Rate FiO2 06/03/17 10:00 114 06/03/17 09:00 116 06/03/17 08:00 132 06/03/17 07:15 107 06/03/17 07:15 97.8 118 20 115/83 (94) 96 06/03/17 07:15 107 06/03/17 07:00 97.8 118 20 115/83 (94) 96 06/03/17 06:30 92 06/03/17 04:00 97.1 107 20 136/98 (111) 97 06/03/17 04:00 100 06/03/17 03:00 102 06/03/17 02:00 100 06/03/17 01:00 100 06/03/17 00:00 99 06/03/17 00:00 97.0 105 18 139/94 (109) 95 06/02/17 23:00 110 06/02/17 22:00 124 06/02/17 21:00 114 06/02/17 20:00 121 06/02/17 20:00 96.8 121 20 146/109 (121) 97 06/02/17 19:00 115 06/02/17 19:00 116 06/02/17 15:00 97.8 90 18 131/79 (96) 98 06/02/17 15:00 102 06/02/17 15:00 92 06/02/17 14:00 82 06/02/17 13:00 82 06/02/17 12:00 82 I/O 06/02/17 06/02/17 06/02/17 06/03/17 06/03/17 06/03/17 07:00 15:00 23:00 07:00 15:00 23:00 Intake Total 282 ml 510 ml 240 ml Output Total 800 ml Balance 282 ml -290 ml 240 ml Intake Oral 240 ml 480 ml 240 ml IV Total 42 ml 30 ml Output Urine Total 800 ml # Voids 2 5 # Bowel Movements 0 0 Result Diagram: 06/03/17 0543 06/03/17 0543 Imaging Alert, fully oriented, in bed Lungs: ventilated Heart: S1, S2 irregular, tachycardia Abdomen: soft, no mass Ext: no edema Last Impressions Chest X-Ray 06/01/17 1224 Signed Impressions: Service Date/Time: Thursday, June 01, 2017 12:51 - CONCLUSION: No acute disease. Davian Montoya Jr., MD Current Medications Medications (Trade) Dose Ordered Sig/Keith Route Start Time Stop Time Status Last Admin (NS Flush) 2 ml UNSCH PRN IV FLUSH 06/01/17 14:30 (NS Flush) 2 ml BID IV FLUSH 06/01/17 21:00 06/03/17 09:13 (Narcan Inj) 0.4 mg UNSCH PRN IV PUSH 06/01/17 14:30 (Xanax) 0.25 mg Q6H PRN PO 06/01/17 15:00 06/02/17 21:57 (Cordarone) 200 mg DAILY PO 06/02/17 09:00 06/03/17 09:12 (Eliquis) 5 mg BID PO 06/01/17 21:00 06/03/17 09:12 (Cytomel) 5 mcg DAILY@0600 PO 06/02/17 06:00 06/03/17 05:58 (Pravachol) 20 mg DAILY PO 06/02/17 09:00 06/03/17 09:11 (Altace) 10 mg BID PO 06/01/17 21:00 06/03/17 09:12 (Cardizem Cd) 180 mg DAILY PO 06/03/17 09:00 06/03/17 09:12 (Magdalena-Colace) 2 tab DAILY PRN PO 06/02/17 18:00 06/02/17 22:06 (Lopressor) 25 mg Q6HR PO 06/03/17 12:00 UNV (Lanoxin Inj) 0.5 mg ONCE ONCE IV PUSH 06/03/17 11:30 06/03/17 11:31 UNV (Lanoxin) 0.125 mg DAILY PO 06/04/17 09:00 UNV Assessment and Plan Problem List: (1) Atrial fibrillation with RVR ICD Codes: I48.91 - Unspecified atrial fibrillation Status: Acute Plan: In atrial fibrillation / atrial tach. meds modified Metoprolol increased,, digoxin added. If HR not controlled, I will consider cardioversion Case again discussed with patient (2) Palpitations ICD Codes: R00.2 - Palpitations Status: Acute Plan: Feeling better (3) Shortness of breath ICD Codes: R06.02 - Shortness of breath Status: Acute Plan: Improving (4) HTN (hypertension) ICD Codes: I10 - Essential (primary) hypertension Status: Acute Plan: SBP 115 Kin Rincon MD Jun 03, 2017 11:40
--- NOTE | 2017-06-03 12:31 | MB ---
cc: TOM VORA M.D. DATE OF CONSULTATION: 06/02/2017 REASON FOR CONSULTATION Atrial fibrillation, atrial tachycardia with biventricular response. HISTORY OF PRESENT ILLNESS Mrs. Ferreira is a 81-year-old female with history of atrial fibrillation. She had previous ablation four years ago. She had a recent ablation a couple of months ago. She was admitted to the emergency room due to atrial tachycardia, atrial fibrillation with biventricular response. During hospitalization Cardizem was initiated. Heart rate continued to be high. I was consulted for further evaluation and management. The chart was reviewed. The patient was evaluated. ALLERGIES Multiple. She is allergic to SULFA, CEFACLOR, CIPROFLOXACIN, CLONIDINE, LATEX, PAROXETINE. SOCIAL HISTORY Negative for smoking and drinking. FAMILY HISTORY Noncontributory to her current medical condition. MEDICATIONS She is on: 1. Cardizem. 2. Eliquis. 3. Metoprolol. REVIEW OF SYSTEMS She refers feeling better but still has tachycardia but no chest pain or chest discomfort. PHYSICAL EXAMINATION GENERAL: Alert, fully oriented. VITAL SIGNS: Blood pressure on evaluation was 131/79, pulse 115 irregular, respiratory rate 18. LUNGS: Ventilated. CARDIOVASCULAR: S1-S2, irregular, tachycardic. ABDOMEN: Soft. No mass. No bruit. EXTREMITIES: No edema. ELECTROCARDIOGRAM Electrocardiogram shows atrial fibrillation with biventricular response. LABORATORY DATA Hemoglobin 13, white blood cells 7.5, potassium 3.4, creatinine 0.86. ASSESSMENT AND RECOMMENDATION I had a long conversation with Mrs. Ferreira and her . She had ablation a couple of months ago, apparently this is atrial tachycardia. I am going to use Cardizem p.o. and add digoxin and metoprolol if necessary in the morning. She may need a cardioversion or the other option if that does not resolve is ablation or AV node modification and pacemaker. We had a long and lengthy conversation. At this point I am going to leave her on the current medication. I will reevaluate her in the morning for further management. Will closely monitor her during hospitalization. Tom Vora MD HS/TLL /11:40 AM /12:23 PM
--- NOTE | 2017-06-03 12:44 | HHI.PR ---
Subjective Remarks Patient seen and evaluated today in follow-up for atrial fibrillation with rapid ventricular response and symptoms seen with sister. Patient has no complaints today. Medication adjustments noted Objective Vitals Vital Signs Date Time Temp Pulse Resp B/P (MAP) Pulse Ox O2 Delivery O2 Flow Rate FiO2 06/03/17 11:37 116 06/03/17 11:29 117 06/03/17 11:29 97.5 107 20 107/66 (80) 98 06/03/17 10:00 114 06/03/17 09:00 116 06/03/17 08:00 132 06/03/17 07:15 107 06/03/17 07:15 97.8 118 20 115/83 (94) 96 06/03/17 07:15 107 06/03/17 07:00 97.8 118 20 115/83 (94) 96 06/03/17 06:30 92 06/03/17 04:00 97.1 107 20 136/98 (111) 97 06/03/17 04:00 100 06/03/17 03:00 102 06/03/17 02:00 100 06/03/17 01:00 100 06/03/17 00:00 99 06/03/17 00:00 97.0 105 18 139/94 (109) 95 06/02/17 23:00 110 06/02/17 22:00 124 06/02/17 21:00 114 06/02/17 20:00 121 06/02/17 20:00 96.8 121 20 146/109 (121) 97 06/02/17 19:00 115 06/02/17 19:00 116 06/02/17 15:00 97.8 90 18 131/79 (96) 98 06/02/17 15:00 102 06/02/17 15:00 92 06/02/17 14:00 82 06/02/17 13:00 82 I/O 06/02/17 06/02/17 06/02/17 06/03/17 06/03/17 06/03/17 07:00 15:00 23:00 07:00 15:00 23:00 Intake Total 282 ml 510 ml 240 ml Output Total 800 ml Balance 282 ml -290 ml 240 ml Intake Oral 240 ml 480 ml 240 ml IV Total 42 ml 30 ml Output Urine Total 800 ml # Voids 2 5 # Bowel Movements 0 0 Result Diagram: 11/16/17 0543 06/03/17 0543 Imaging Last Impressions Chest X-Ray 06/01/17 1224 Signed Impressions: Service Date/Time: Thursday, June 01, 2017 12:51 - CONCLUSION: No acute disease. Davian Montoya Jr., MD Objective Remarks GENERAL: This is a well-nourished, well-developed patient, in no apparent distress. CARDIOVASCULAR: Atrial fibrillation without murmurs, gallops, or rubs. RESPIRATORY: Clear to auscultation. Breath sounds equal bilaterally. No wheezes , rales, or rhonchi. GASTROINTESTINAL: Abdomen soft, non-tender, nondistended. Normal active bowel sounds MUSCULOSKELETAL: Extremities without clubbing, cyanosis, or edema. NEURO: Alert & Oriented x4 to person, place, time, situation. Moves all ext x4 A/P Problem List: (1) HTN (hypertension) ICD Code: I10 - Essential (primary) hypertension Status: Acute Plan: controlled on current metoprolol (2) Atrial fibrillation with RVR ICD Code: I48.91 - Unspecified atrial fibrillation Status: Acute Plan: Continue metoprolol and digoxin per cardiology Continue telemetry Follow electrolytes (3) Hypokalemia ICD Code: E87.6 - Hypokalemia Status: Acute Plan: Replace, would like to keep greater than 4 (4) Hypothyroid ICD Code: E03.9 - Hypothyroidism, unspecified Plan: Patient on Cytomel 5 mcg daily for the last 5 months per her assessment coordinator Dr. Hanks We'll replace with levothyroxine for increased half-life and probable better control given her recurrent atrial fibrillation Discussed at length with who is agreeable to this plan Debbie Booker MD Jun 03, 2017 12:44
[2017-06-03] MEDS: POTASSIUM CHLORIDE 10 MEQ CAP PO SCH (14:27)
[2017-06-03] MEDS: DOCUSATE SODIUM 50 MG/SENNA 8.6 MG TAB PO PRN (20:42)
[2017-06-03] MEDS: ALPRAZolam 0.25 MG TAB PO PRN (20:42)
[2017-06-04] VITALS (15 sets, daily range): BP systolic 111–160; BP diastolic 56–95; PULSE 67–83; RESP 18–20; TEMP 97.8–98; O2SAT 97–98
[2017-06-04] MEDS: METOPROLOL TARTRATE 25 MG TAB PO SCH ×2 (00:58→05:46)
[2017-06-04] MEDS ORDERED: LEVOTHYROXINE SODIUM 25 MCG TAB PO SCH (06:00)
--- NOTE | 2017-06-04 08:15 | HHI.PR ---
Subjective Remarks Feeling better Objective Vital Signs Date Time Temp Pulse Resp B/P (MAP) Pulse Ox O2 Delivery O2 Flow Rate FiO2 06/04/17 06:00 69 06/04/17 05:49 71 18 153/91 (111) 97 06/04/17 05:00 69 06/04/17 04:00 97.8 68 18 111/56 (74) 97 06/04/17 04:00 68 06/04/17 03:00 68 06/04/17 02:00 67 06/04/17 01:00 68 06/04/17 00:00 98.0 69 18 135/80 (98) 97 06/04/17 00:00 68 06/03/17 23:00 68 06/03/17 22:00 68 06/03/17 21:00 74 06/03/17 20:00 75 06/03/17 20:00 97.9 67 18 134/76 (95) 97 06/03/17 19:00 67 06/03/17 18:00 90 06/03/17 17:00 84 06/03/17 16:00 88 06/03/17 16:00 97.9 92 20 136/88 (104) 97 06/03/17 15:00 66 06/03/17 14:00 94 06/03/17 13:00 96 06/03/17 12:00 98 06/03/17 11:37 116 06/03/17 11:29 117 06/03/17 11:29 97.5 107 20 107/66 (80) 98 06/03/17 10:00 114 06/03/17 09:00 116 I/O 06/03/17 06/03/17 06/03/17 06/04/17 06/04/17 06/04/17 07:00 15:00 23:00 07:00 15:00 23:00 Intake Total 240 ml 240 ml Balance 240 ml 240 ml Intake Oral 240 ml 240 ml # Voids 5 5 2 # Bowel Movements 0 Result Diagram: 06/03/17 0543 06/03/17 0543 Imaging Alert, fully oriented Lungs: ventilated Heart: s1, S2 regular, irregular Abdomen: soft, no mass Ext: no edema Last Impressions Chest X-Ray 06/01/17 1224 Signed Impressions: Service Date/Time: Thursday, June 01, 2017 12:51 - CONCLUSION: No acute disease. Davian Montoya Jr., MD Current Medications Medications (Trade) Dose Ordered Sig/Keith Route Start Time Stop Time Status Last Admin (NS Flush) 2 ml UNSCH PRN IV FLUSH 06/01/17 14:30 (NS Flush) 2 ml BID IV FLUSH 06/01/17 21:00 06/03/17 09:13 (Narcan Inj) 0.4 mg UNSCH PRN IV PUSH 06/01/17 14:30 (Xanax) 0.25 mg Q6H PRN PO 06/01/17 15:00 06/03/17 20:42 (Cordarone) 200 mg DAILY PO 06/02/17 09:00 06/03/17 09:12 (Eliquis) 5 mg BID PO 06/01/17 21:00 06/03/17 20:36 (Pravachol) 20 mg DAILY PO 06/02/17 09:00 06/03/17 09:11 (Altace) 10 mg BID PO 06/01/17 21:00 06/03/17 20:36 (Cardizem Cd) 180 mg DAILY PO 06/03/17 09:00 06/03/17 09:12 (Magdalena-Colace) 2 tab DAILY PRN PO 06/02/17 18:00 06/03/17 20:42 (Lopressor) 25 mg Q6HR PO 06/03/17 12:00 06/04/17 05:46 (Lanoxin) 0.125 mg DAILY PO 06/04/17 09:00 (KCl) 10 meq DAILY PO 06/03/17 12:30 06/03/17 14:27 (Synthroid) 25 mcg DAILY@0600 PO 06/04/17 06:00 06/04/17 05:34 Assessment and Plan Problem List: (1) Atrial fibrillation with RVR ICD Codes: I48.91 - Unspecified atrial fibrillation Status: Acute Plan: HR control. Doing better can be DH Follow up with me in 3 weeks (2) Palpitations ICD Codes: R00.2 - Palpitations Status: Acute Plan: Feeling better (3) Shortness of breath ICD Codes: R06.02 - Shortness of breath Status: Acute Plan: Significantly improve. (4) HTN (hypertension) ICD Codes: I10 - Essential (primary) hypertension Status: Acute Plan: SBP 153. Meds modified Kin Rincon MD Jun 04, 2017 08:15
[2017-06-04] MEDS: POTASSIUM CHLORIDE 10 MEQ CAP PO SCH (08:18)
[2017-06-04] MEDS: PRAVASTATIN SOD 20 MG TAB PO SCH (08:18)
[2017-06-04] MEDS: AMIODARONE 200 MG TAB PO SCH (08:18)
[2017-06-04] MEDS: APIXABAN 5 MG TABLET PO SCH (08:19)
[2017-06-04] MEDS: SODIUM CHLORIDE 0.9% FLUSH 10 ML FLUSH IV FLUSH SCH (08:19)
[2017-06-04] MEDS: RAMIPRIL 5 MG CAP PO SCH (08:19)
[2017-06-04] MEDS ORDERED: DILTIAZEM-CD 240 MG CAP ER PO SCH (09:00)
[2017-06-04] MEDS ORDERED: METOPROLOL TARTRATE 50 MG TAB PO SCH (09:00)
[2017-06-04] MEDS ORDERED: DIGOXIN 0.125 MG TAB PO SCH (09:00)
[2017-06-04] MEDS ORDERED: LEVO25TA4 PO (11:56)
[2017-06-04] MEDS ORDERED: METO-309 PO (11:56)
[2017-06-04] MEDS ORDERED: DILT240C44 PO (11:56)
[2017-06-04] MEDS ORDERED: DIGO0.12 PO (11:56)
--- NOTE | 2017-06-04 11:57 | HHI.DCPOC ---
Discharge Care Plan Diagnosis: (1) Hypothyroid (2) Hypokalemia (3) HTN (hypertension) (4) Atrial fibrillation with RVR Goals to Promote Your Health * To prevent worsening of your condition and complications * To maintain your health at the optimal level Directions to Meet Your Goals Take your medications as prescribed Follow your dietary instruction Follow activity as directed Keep your appointments as scheduled Take your immunizations and boosters as scheduled If your symptoms worsen call your PCP, if no PCP go to Urgent Care Center or Emergency Room Smoking is Dangerous to Your Health. Avoid second hand smoke Call the 24-hour hour crisis hotline for domestic abuse at Debbie Booker MD Jun 04, 2017 11:57
--- NOTE | 2017-06-04 11:58 | HHI.DS ---
[facility] Discharge Summary Admission Date Jun 01, 2017 at 18:44 Discharge Date: Jun 04, 2017 Admitting Diagnosis tachycardia, hx a fib (1) HTN (hypertension) ICD Code: I10 - Essential (primary) hypertension Status: Acute (2) Atrial fibrillation with RVR ICD Code: I48.91 - Unspecified atrial fibrillation Status: Acute (3) Hypokalemia ICD Code: E87.6 - Hypokalemia Status: Acute (4) Hypothyroid ICD Code: E03.9 - Hypothyroidism, unspecified Procedures none Brief History - From Admission hx from patient, ER [employer] communication and review of med records palpitations for about a week now, about 130-127 at home she thought she was told to wait till 140 or over , so she waited for her doctors' appointment for a whole week while symptomatic called her doc today am, who told to come to hospital and clarified her to come to hospital if HR>120 no chest pain no dyspnea felt like there was cotton in my chest no dizziness, no sweating, little nausea towards the end , no syncope drove her here ablation early apr 2017- ablation no fever no nasuea/. no vomiting no bleeding in stool or urine- on eliquis at home no recent major apart from ablation, no long distance travels CBC/BMP: 06/03/17 0543 06/03/17 0543 Significant Findings Laboratory Tests Test 06/01/17 12:20 06/02/17 05:00 06/03/17 05:43 Monocytes (%) (Auto) 10.2 % (0.0-8.0) 11.2 % (0.0-8.0) 10.5 % (0.0-8.0) Blood Urea Nitrogen 19 MG/DL (7-18) Random Glucose 126 MG/DL (74-106) Sodium Level 125 MEQ/L (136-145) 135 MEQ/L (136-145) 135 MEQ/L (136-145) Potassium Level 3.2 MEQ/L (3.5-5.1) 3.4 MEQ/L (3.5-5.1) Chloride Level 93 MEQ/L (98-107) Estimat Glomerular Filtration Rate 54 ML/MIN (>89) 64 ML/MIN (>89) 63 ML/MIN (>89) Troponin I LESS THAN 0.02 NG/ML Thyroid Stimulating Hormone 3rd Gen 4.300 uIU/ML (0.358-3.740) 5.780 uIU/ML (0.358-3.740) Red Blood Count 3.93 MIL/MM3 (4.00-5.30) Total Protein 5.9 GM/DL (6.4-8.2) Albumin 3.1 GM/DL (3.4-5.0) Free Triiodothyronine (T3) pg/dL 2.15 PG/ML (2.18-3.98) Imaging Last Impressions Chest X-Ray 06/01/17 1224 Signed Impressions: Service Date/Time: Thursday, June 01, 2017 12:51 - CONCLUSION: No acute disease. Davian Montoya Jr., MD PE at Discharge GENERAL: This is a well-nourished, well-developed patient, in no apparent distress. CARDIOVASCULAR: Atrial fibrillation without murmurs, gallops, or rubs. RESPIRATORY: Clear to auscultation. Breath sounds equal bilaterally. No wheezes , rales, or rhonchi. GASTROINTESTINAL: Abdomen soft, non-tender, nondistended. Normal active bowel sounds MUSCULOSKELETAL: Extremities without clubbing, cyanosis, or edema. NEURO: Alert & Oriented x4 to person, place, time, situation. Moves all ext x4 Pt update on day of discharge Patient seen today. No further events Discharge plans discussed with patient and nursing team Hospital Course This patient was seen and treated for atrial fibrillation which was symptomatic and uncontrolled. She had increase in her cardiac medications as well as her Cytomel was changed to levothyroxine. Patient did well. She also was hypokalemic and this was corrected Pt Condition on Discharge: Good Discharge Disposition: Discharge Home Discharge Time: <= 30 minutes Discharge Instructions DIET: Follow Instructions for: As Tolerated, No Restrictions Activities you can perform: Regular-No Restrictions Follow up Referrals: Cardiology - 3 Weeks with Kin Rincon MD Endocrinology - 2 Weeks with [facility] New Medications: Digoxin (Digoxin) 0.125 Mg Tab 0.125 MG PO DAILY for afib, #31 TAB Diltiazem CD 24 HR (Diltiazem CD 24 HR) 240 Mg Caper 240 MG PO DAILY for afib for 30 Days, #30 CAP Levothyroxine (Levothyroxine) 25 Mcg Tab 25 MCG PO DAILY@0600 for Thyroid, #31 TAB Metoprolol Tartrate (Lopressor) 50 Mg Tab 50 MG PO BID for afib, #30 TAB Continued Medications: Alprazolam (Alprazolam) 0.25 Mg Tab 0.25 MG PO Q6H PRN for ANXIETY, TAB 0 Refills Amiodarone (Amiodarone) 200 Mg Tab 200 MG PO DAILY for Regulate Heart Beat, #30 TAB 0 Refills Apixaban (Eliquis) 5 Mg Tab 5 MG PO BID for Blood Clot Prevention, #60 TAB 0 Refills Cholecalciferol (Vitamin D3) 1,000 Unit Cap 1000 UNITS PO DAILY for Nutritional Supplement, #1 BOTTLE 0 Refills Estradiol Patch 168 HR (Estradiol Patch 168 HR) 0.025 Mg/24 Hr Patch 1 PATCH T-DERMAL Q7D for Estrogen Supplements, #4 PATCH 0 Refills Remove old patch and discard when new patch being placed. Hydrochlorothiazide (Hydrochlorothiazide) 25 Mg Tab 25 MG PO DAILY, #30 TAB 0 Refills Lovastatin (Lovastatin) 20 Mg Tab 20 MG PO DAILY for Cholesterol Management, #30 TAB 0 Refills Multiple Vitamins W/ Minerals (Centrum Silver Adult 50+) 0.4 Mg-300 Mcg-250 Mcg Tab 1 TAB PO DAILY for Nutritional Supplement Ramipril (Ramipril) 10 Mg Cap 10 MG PO BID, #60 CAP 0 Refills Sennosides-Docusate Sodium (Senna Plus 8.6-50 mg) 1 Tab Tab 2 TAB PO DAILY Discontinued Medications: Liothyronine (Liothyronine) 5 Mcg Tab 5 MCG PO DAILY for Thyroid Supplement, #30 TAB 0 Refills Metoprolol Tartrate (Metoprolol Tartrate) 25 Mg Tab 25 MG PO BID, #60 TAB 0 Refills Debbie Booker MD Jun 04, 2017 11:58
== END 2017-06-04 13:28 | disposition home or self-care (01) | DRG 309 ==
LOC: NEPC 11:09 → NEDA 14:25 → OBSVTOIN 18:44 → NEDH 18:46 → HCIS 19:55
PROVIDERS: ADMIT Hospitalist; ATTEND Hospitalist
DX: I48.91 Unspecified atrial fibrillation (principal); E87.1 Hypo-osmolality and hyponatremia; E86.0 Dehydration; I12.9 Hypertensive chronic kidney disease with stage 1 through stage 4 chronic kidney disease, or unspecified chronic kidney disease; E03.9 Hypothyroidism, unspecified; C44.91 Basal cell carcinoma of skin, unspecified; F32.9 Major depressive disorder, single episode, unspecified; E87.6 Hypokalemia; N18.9 Chronic kidney disease, unspecified; E78.00 Pure hypercholesterolemia, unspecified; I47.1 Supraventricular tachycardia; I44.0 Atrioventricular block, first degree; F41.9 Anxiety disorder, unspecified; M19.90 Unspecified osteoarthritis, unspecified site
CPT/HCPCS: 71010; 80048; 80053; 82550; 83735; 84436; 84443; 84481; 84484; 85025; 85610; 85730; 93005; 96374; J1160; J7040

== ENCOUNTER 2017-06-06 10:17 | Inpatient (IN) | payer MEDICARE, BC ==
[2017-06-05 20:27] VITALS: O2SAT 98
[2017-06-06] VITALS (19 sets, daily range): BP systolic 85–145; BP diastolic 42–77; PULSE 31–53; RESP 16–20; TEMP 93.4–98.6; O2SAT 92–98
[~2017-06-06] VITALS: Ht 165.1 cm; Wt 67.3 kg
[~2017-06-06 10:17] MED LIST changes: -CENTCHW4 CHEW; +DIGO0.12 PO; +DILT240C44 PO; +LEVO25TA4 PO; -LIOT5TAB3 PO; +METO-309 PO; -METO25TA3 PO; +MULT1TAB PO; -POTA-163 PO
[2017-06-06] MEDS ORDERED: GLUCAGON 1 MG/ML VIAL IV PUSH ONE (10:30)
[2017-06-06] MEDS ORDERED: SODIUM CHLOR 0.9% 1000 ML INJ 1,000 ML IV SCH ×2 (10:30→12:00)
--- NOTE | 2017-06-06 10:35 | PD ---
HPI Chief Complaint: Cardiac Complaint Time Seen by Provider: 10:23 Travel History International Travel<30 days: No Contact w/Intl Traveler<30days: No Traveled to known affect area: No History of Present Illness HPI 81-year-old female complains of generalized malaise and weakness and bradycardia. Patient has history of atrial fibrillation and was admitted to [facility] June 01 and discharged June 04 for A. fib with RVR. Patient was seen by Dr. Rincon, promotion producer. Patient was discharged home with prescription for digoxin 0.125 mg daily, diltiazem CD 240 mg daily, metoprolol 50 mg twice a day, and continue with amiodarone 200 mg daily. Patient also on Eliquis 5 mg twice a day. Patient has history of hypothyroidism and on levothyroxine. Patient started feeling generalized malaise and weakness and bradycardia this morning. Patient took her medications this morning. Patient denies any headache. Patient denies any chest pain. Patient states that she has shortness of breath. Patient denies abdominal pain. Patient denies any nausea vomiting diarrhea. Patient denies any fever chills. Patient denies any focal weakness or numbness of extremity. EMS was called. Patient's pulse was in the 30s and 40s. External pacer was applied. Patient was transferred to ED for evaluation. Patient was given atropine 1 mg IV with by EMS without improvement of the bradycardia. PFSH Past Medical History Hx Anticoagulant Therapy: Yes Arthritis: Yes (lower back) Asthma: No Atrial Fibrillation: Yes Autoimmune Disease: No Blood Disorders: No Anxiety: Yes Depression: Yes Heart Rhythm Problems: Yes (afib) Cancer: Yes (skin, left thigh and nose (removed)) Cardiac Catheterization: No Cardiovascular Problems: Yes High Cholesterol: Yes (controlled) Chemotherapy: No Chest Pain: No Congestive Heart Failure: No COPD: No Cerebrovascular Accident: No Diabetes: No Diminished Hearing: No Endocrine: No Gastrointestinal Disorders: No GERD: No Glaucoma: No Genitourinary: No Headaches: No Hepatitis: No Hiatal Hernia: No Heparin Induced Thrombocytopen: No Hypertension: Yes Immune Disorder: No Implanted Vascular Access Dvce: Yes Kidney Stones: No Musculoskeletal: Yes Neurologic: No Psychiatric: Yes Reproductive: No Respiratory: No Immunizations Current: Yes Migraines: No Myocardial Infarction: No Radiation Therapy: No Renal Failure: No Seizures: No Sickle Cell Disease: No Sleep Apnea: No Thyroid Disease: Yes Ulcer: No PNEUMOCCOCAL Vaccine (Year): 3 ?: Not Menopausal: Yes : 2 Para: 1 Past Surgical History Abdominal Surgery: No AICD: No Appendectomy: No Arteriovenous Shunt: No Cardiac Surgery: Yes (ablation x4) Cholecystectomy: No Coronary Artery Bypass Graft: No Ear Surgery: No Endocrine Surgery: No Eye Surgery: No Genitourinary Surgery: No Gynecologic Surgery: Yes (hysterectomy) Hysterectomy: Yes Insulin Pump: No Joint Replacement: Yes (bilat hip) Neurologic Surgery: No Oral Surgery: No Pacemaker: No Thoracic Surgery: No Other Surgery: Yes (Skin CA removed fro forehead and leg) Family History Family Myocardial Infarction: Yes Social History Alcohol Use: No Tobacco Use: No (quit at 27 years of age) Substance Use: No Allergies-Medications (Allergen,Severity, Reaction): Coded Allergies: Sulfa (Sulfonamide Antibiotics) (Unverified Allergy, Severe, RASH, ) cefaclor (Unverified Allergy, Severe, RASH, 06/01/17) paroxetine (Unverified Allergy, Severe, 06/01/17) ciprofloxacin (Unverified Allergy, Unknown, GI UPSET, 06/01/17) clonidine (Unverified Allergy, Unknown, SKIN IRRITATION, 06/01/17) Uncoded Allergies: latex bandages (Adverse Reaction, Mild, SKIN REDNESS, RASH, 05/11/17) Reported Meds & Prescriptions Reported Meds & Active Scripts Active Levothyroxine (Levothyroxine Sodium) 25 Mcg Tab 25 Mcg PO DAILY@0600 Diltiazem CD 24 HR 240 Mg Caper 240 Mg PO DAILY 30 Days Lopressor (Metoprolol Tartrate) 50 Mg Tab 50 Mg PO BID Digoxin 0.125 Mg Tab 0.125 Mg PO DAILY Reported Centrum Silver Adult 50+ (Multiple Vitamins W/ Minerals) 0.4 Mg-300 Mcg-250 Mcg Tab 1 Tab PO DAILY Amiodarone (Amiodarone HCl) 200 Mg Tab 200 Mg PO DAILY Eliquis (Apixaban) 5 Mg Tab 5 Mg PO BID Estradiol Patch 168 HR (Estradiol) 0.025 Mg/24 Hr Patch 1 Patch T-DERMAL Q7D Remove old patch and discard when new patch being placed. Senna Plus 8.6-50 mg (Sennosides-Docusate Sodium) 1 Tab Tab 2 Tab PO DAILY Vitamin D3 (Cholecalciferol) 1,000 Unit Cap 1,000 Units PO DAILY Hydrochlorothiazide 25 Mg Tab 25 Mg PO DAILY Lovastatin 20 Mg Tab 20 Mg PO DAILY Ramipril 10 Mg Cap 10 Mg PO BID Alprazolam 0.25 Mg Tab 0.25 Mg PO Q6H PRN Review of Systems General / Constitutional: No: Fever Eyes: No: Visual changes HENT: No: Headaches Cardiovascular: No: Chest Pain or Discomfort Respiratory: Positive: Shortness of Breath Gastrointestinal: No: Abdominal Pain Genitourinary: No: Dysuria Musculoskeletal: No: Pain Skin: No Rash Neurologic: No: Weakness Psychiatric: No: Depression Endocrine: No: Polydipsia Hematologic/Lymphatic: No: Easy Bruising Physical Exam Narrative GENERAL: Well-nourished, well-developed patient. SKIN: Focused skin assessment warm/dry. HEAD: Normocephalic. EYES: No scleral icterus. No injection or drainage. NECK: Supple, trachea midline. No JVD or lymphadenopathy. CARDIOVASCULAR: Bradycardia rate and rhythm without murmurs, gallops, or rubs. RESPIRATORY: Breath sounds equal bilaterally. No accessory muscle use. GASTROINTESTINAL: Abdomen soft, non-tender, nondistended. MUSCULOSKELETAL: No cyanosis, or edema. BACK: Nontender without obvious deformity. No CVA tenderness. Neurologic exam normal. Data Data Last Documented VS Vital Signs Date Time Temp Pulse Resp B/P (MAP) Pulse Ox O2 Delivery O2 Flow Rate FiO2 06/06/17 11:47 31 18 112/49 (70) 97 Nasal Cannula 2.00 06/06/17 10:21 98.6 Orders Orders Sodium Chlor 0.9% 1000 Ml Inj (Ns 1000 M (06/06/17 10:30) Glucagon Inj (Glucagon Inj) (06/06/17 10:30) Electrocardiogram (06/06/17 10:26) Complete Blood Count With Diff (06/06/17 10:26) Comprehensive Metabolic Panel (06/06/17 10:26) Creatine Kinase (Cpk) (06/06/17 10:26) Troponin I (06/06/17 10:26) Prothrombin Time / Inr (Pt) (06/06/17 10:26) Act Partial Throm Time (Ptt) (06/06/17 10:26) Digoxin (06/06/17 10:26) Thyroid Stimulating Hormone (06/06/17 10:26) Chest, Single Ap (06/06/17 10:26) Iv Access Insert/Monitor (06/06/17 10:26) Ecg Monitoring (06/06/17 10:26) Oxygen Administration (06/06/17 10:26) Oximetry (06/06/17 10:26) Dopamine Inj Premix (Dopamine Inj Premix (06/06/17 12:00) Terbutaline Inj (Brethine Inj) (06/06/17 12:00) Sodium Chlor 0.9% 1000 Ml Inj (Ns 1000 M (06/06/17 12:00) Sodium Chlor 0.9% 1000 Ml Inj (Ns 1000 M (06/06/17 12:00) Labs Laboratory Tests Test 06/06/17 10:30 White Blood Count 6.0 TH/MM3 Red Blood Count 3.92 MIL/MM3 Hemoglobin 12.4 GM/DL Hematocrit 37.0 % Mean Corpuscular Volume 94.4 FL Mean Corpuscular Hemoglobin 31.7 PG Mean Corpuscular Hemoglobin Concent 33.6 % Red Cell Distribution Width 13.6 % Platelet Count 282 TH/MM3 Mean Platelet Volume 7.2 FL Neutrophils (%) (Auto) 61.1 % Lymphocytes (%) (Auto) 24.8 % Monocytes (%) (Auto) 9.7 % Eosinophils (%) (Auto) 3.3 % Basophils (%) (Auto) 1.1 % Neutrophils # (Auto) 3.7 TH/MM3 Lymphocytes # (Auto) 1.5 TH/MM3 Monocytes # (Auto) 0.6 TH/MM3 Eosinophils # (Auto) 0.2 TH/MM3 Basophils # (Auto) 0.1 TH/MM3 CBC Comment DIFF FINAL Differential Comment Prothrombin Time 11.4 SEC Prothromb Time International Ratio 1.0 RATIO Activated Partial Thromboplast Time 28.2 SEC Blood Urea Nitrogen 25 MG/DL Creatinine 1.20 MG/DL Random Glucose 134 MG/DL Total Protein 5.9 GM/DL Albumin 3.1 GM/DL Calcium Level 7.9 MG/DL Alkaline Phosphatase 76 U/L Aspartate Amino Transf (AST/SGOT) 77 U/L Alanine Aminotransferase (ALT/SGPT) 74 U/L Total Bilirubin 0.6 MG/DL Sodium Level 133 MEQ/L Potassium Level 4.1 MEQ/L Chloride Level 104 MEQ/L Carbon Dioxide Level 19.8 MEQ/L Anion Gap 9 MEQ/L Estimat Glomerular Filtration Rate 43 ML/MIN Total Creatine Kinase 45 U/L Troponin I LESS THAN 0.02 NG/ML Thyroid Stimulating Hormone 3rd Gen 5.640 uIU/ML Digoxin Level 1.3 NG/ML [facility] Medical Decision Making Medical Screen Exam Complete: Yes Emergency Medical Condition: Yes Medical Record Reviewed: Yes Interpretation(s) EKG shows sinus bradycardia rate 35. Nonspecific ST-T wave change. 11:42 AM. Last Impressions Chest X-Ray 06/06/17 1026 Signed Impressions: Service Date/Time: Tuesday, June 06, 2017 10:34 - CONCLUSION: No evidence of acute cardiopulmonary disease. Lyndon Lee MD CBC within normal limit. Sodium 133. Bicarbonate 19.8. BUN 25. Creatinine 1.20. GFR 43. Calcium 7.9. AST 77. ALT 74. Cardiac enzymes are normal. TSH 5.64. Digoxin 1.3. Differential Diagnosis Differential diagnosis including side effect to medications, sinus disease. Narrative Course 81-year-old female with generalized malaise and weakness and shortness of breath and bradycardia. History of atrial fibrillation and on digoxin, diltiazem, metoprolol and amiodarone. Glucagon 2 mg IV given. Normal saline solution 100 cc an hour. External pacer in place. Normal saline solution 2 L IV bolus. Normal saline solution 125 cc an hour. Dopamine drip started to keep MAP above 65. Diagnosis Primary Impression: Bradycardia Additional Impression: Renal insufficiency Admitting Information Admitting Physician Requests: Admit Mumtaz Trent MD Jun 06, 2017 10:35
[2017-06-06 10:41] LABS: AUTOMATED NEUTROPHIL # 3.7 TH/MM3 (1.8-7.7); BASOPHIL # 0.1 TH/MM3 (0-0.2); BASOPHIL % 1.1 % (0.0-2.0); EOSINOPHIL # 0.2 TH/MM3 (0-0.4); EOSINOPHIL % 3.3 % (0.0-4.0); HEMO FLAGS DIFF FINAL; LYMPH % 24.8 % (9.0-44.0); LYMPHOCYTE # 1.5 TH/MM3 (1.0-4.8); MEAN CELL VOLUME 94.4 FL (80.0-100.0); MEAN CORPUSCULAR HEMOGLOBIN 31.7 PG (27.0-34.0); MEAN CORPUSCULAR HGB CONC 33.6 % (32.0-36.0); MONO % 9.7 % (0.0-8.0); NEUT % 61.1 % (16.0-70.0); PLATELET COUNT 282 TH/MM3 (150-450); RED BLOOD COUNT 3.92 MIL/MM3 (4.00-5.30); RED CELL DISTRIBUTION WIDTH 13.6 % (11.6-17.2)
--- NOTE | 2017-06-06 10:47 | RADRPT ---
EXAM DATE/TIME: 06/06/2017 10:34 [facility] COMPARISON: CHEST SINGLE AP, June 01, 2017, 12:51. INDICATIONS : Shortness of breath and lightheaded. MEDICAL HISTORY : Hypertension. Atrial fibrillation. SURGICAL HISTORY : Cardiac ablation x4. ENCOUNTER: Initial ACUITY: 1 day PAIN SCORE: Non-responsive. LOCATION: Bilateral chest FINDINGS: A single view of the chest demonstrates the lungs to be symmetrically aerated without evidence of mas s, infiltrate or effusion. The cardiomediastinal contours are unremarkable. Osseous structures are intact. CONCLUSION: No evidence of acute cardiopulmonary disease. Lyndon Lee MD on June 06, 2017 at 10:45 Board Certified Radiologist. This report was verified electronically.
[2017-06-06 10:50] LABS: APTT (PATIENT) 28.2 SEC (24.3-30.1); PROTHROMBIN TIME - PATIENT 11.4 SEC (9.8-11.6)
[2017-06-06 11:17] LABS: ALKALINE PHOSPHATASE 76 U/L (45-117); ALT (GPT) 74 U/L (10-53); ANION GAP 9 MEQ/L (5-15); AST (GOT) 77 U/L (15-37); BICARBONATE 19.8 MEQ/L (21.0-32.0); BLOOD UREA NITROGEN 25 MG/DL (7-18); CHLORIDE 104 MEQ/L (98-107); DIGOXIN 1.3 NG/ML (0.8-2.0); GLOMERULAR FILTRATION RATE 43 ML/MIN (>89); POTASSIUM 4.1 MEQ/L (3.5-5.1); SODIUM (NA) 133 MEQ/L (136-145); TOTAL BILIRUBIN ADULT 0.6 MG/DL (0.2-1.0)
[2017-06-06 11:37] LABS: CREATINE KINASE 45 U/L (26-192)
[2017-06-06] MEDS ORDERED: SODIUM CHLOR 0.9% 1000 ML INJ 1,000 ML IV ONE (12:00)
[2017-06-06] MEDS ORDERED: DOPamine INJ PREMIX 500 ML IV PRN (12:00)
[2017-06-06] MEDS ORDERED: TERBUTALINE INJ 1 MG/ML AMP SQ PRN (12:00)
--- NOTE | 2017-06-06 12:01 | EKG ---
Date Performed: 06/06/2017 Time Performed: 10:23:04 PTAGE: 81 years EKG: Atrial fibrillation with slow ventricular response ABNORMAL ECG PREVIOUS TRACING : 06/01/2017 11.57 Compared to the prior study, the rate is significantly slow er. DOCTOR: Robert Lopez Interpretating Date/Time 06/06/2017 11:59:42
[2017-06-06] MEDS ORDERED: ONDANSETRON HCL 4 MG/2 ML VIAL ONE (12:59)
[2017-06-06] MEDS ORDERED: MAGNESIUM SULFATE INJ 2 GM in SODIUM CHLORIDE 0.9% INJ 96 ML IV PRN (13:00)
[2017-06-06] MEDS ORDERED: MAGNESIUM HYDROXIDE SUSP 30 ML CUP PO PRN (13:00)
[2017-06-06] MEDS ORDERED: POTASSIUM PHOSPHATE INJ 30 MMOL in SODIUM CHLOR 0.9% 250 ML INJ 250 ML IV PRN (13:00)
[2017-06-06] MEDS ORDERED: POTASSIUM PHOSPHATE MONOBASIC 500 MG TAB PO PRN (13:00)
[2017-06-06] MEDS ORDERED: RESP: ALBUTEROL 2.5 MG/IPRATROPIUM 0.5 MG NEB (PRN) INH (13:00)
[2017-06-06] MEDS ORDERED: POTASSIUM CHLOR 20 MEQ PREMIX 100 ML IV PRN ×2 (13:00)
[2017-06-06] MEDS ORDERED: GLUCAGON 1 MG/ML VIAL OTHER PRN (13:00)
[2017-06-06] MEDS ORDERED: BISACODYL 10 MG SUPP RECTAL PRN (13:00)
[2017-06-06] MEDS ORDERED: ONDANSETRON HCL 4 MG/2 ML VIAL IV PUSH ONE (13:00)
[2017-06-06] MEDS ORDERED: MAGNESIUM OXIDE 400 MG TAB PO PRN (13:00)
[2017-06-06] MEDS ORDERED: MAGNESIUM SULFATE INJ 4 GM in SODIUM CHLORIDE 0.9% INJ 92 ML IV PRN (13:00)
[2017-06-06] MEDS ORDERED: SODIUM CHLORIDE 0.9% FLUSH 10 ML FLUSH IV FLUSH PRN (13:00)
[2017-06-06] MEDS ORDERED: CHLORHEXIDINE GLUCONATE 2 % 1 PACK (2 CLOTHS) TOP PRN (13:00)
[2017-06-06] MEDS ORDERED: HEPARIN SODIUM - SQ 10,000 UNITS/ML VIAL SQ SCH (13:00)
[2017-06-06] MEDS ORDERED: SENNOSIDES 8.6 MG TAB PO PRN (13:00)
[2017-06-06] MEDS ORDERED: SODIUM PHOSPHATE INJ 30 MMOL in SODIUM CHLOR 0.9% 250 ML INJ 240 ML IV PRN (13:00)
[2017-06-06] MEDS ORDERED: POTASSIUM CHLOR 40 MEQ PREMIX 100 ML IV PRN ×2 (13:00)
[2017-06-06] MEDS ORDERED: POTASSIUM PHOSPHATE MONOBASIC 500 MG TAB PO/TUBE PRN (13:00)
[2017-06-06] MEDS ORDERED: DEXTROSE 50% IN WATER 50 ML VIAL(D50) IV PUSH PRN (13:00)
[2017-06-06] MEDS ORDERED: MISCELLANEOUS NURSING INFORMATION XX SCH (13:00)
[2017-06-06] MEDS ORDERED: LACTULOSE SYRUP 20 GM/30 ML CUP PO PRN (13:00)
[2017-06-06] MEDS ORDERED: POTASSIUM CHLORIDE 25 MEQ EFFERVESCENT TAB PO PRN (13:00)
[2017-06-06] MEDS: SODIUM CHLOR 0.9% 1000 ML INJ 1,000 ML IV SCH ×3 (13:07→23:07)
[2017-06-06] MEDS ORDERED: ONDANSETRON HCL 4 MG/2 ML VIAL IV PUSH PRN (15:00)
--- NOTE | 2017-06-06 15:50 | HHI.CCPN ---
Subjective Remarks/Hospital Course HISTORY AND PHYSICAL HPI This is a 81-year-old female that presented to [facility] ED, with complaints of generalized malaise and weakness and bradycardia. The patient's past medical history is significant for cardiac disease recently repeated bouts of A. fib RVR uncontrolled, with a history of cardiac ablations, last procedure performed 04/20/[address] Rincon.The patient was recently admitted for atrial fibrillation RVR , 06/01 and discharged 06/04/17 for A. fib with RVR with medication management. Patient was seen by Dr. Rincon, yard person. Patient was discharged home with prescription for digoxin 0.125 mg daily, diltiazem CD 240 mg daily, metoprolol 50 mg twice a day, and continue with amiodarone 200 mg daily. Patient also on Eliquis 5 mg twice a day. Metoprolol was increased to 50 mg 3 times a day, yesterday per report from patient's ..Patient has history of hypothyroidism and on levothyroxine. Patient started feeling generalized malaise and weakness and bradycardia this morning, after taking her medications. Upon arrival of EMS, the patient's pulse was in the 30s and 40s. External pacer was applied. The patient received Narcan 0.8 mg, and Ativan 2 mg IV Patient was transferred to ED for evaluation. Patient was given atropine 1 mg IV with by EMS without improvement of the bradycardia. In transporting patient and in the ED the patient was noted to be normotensive. The patient received glucagon 2 mg and was bolused with 2 L IV fluid. Patient was placed on low-dose dopamine 3 mcgs, with heart rate in the 50's. Per discussion with Dr. Twan John yard person mill tender second operator was notified, official consult placed. Critical care medicine was consulted for management. Upon my arrival to the ED the patient was noted to be somnolent, but easily arousable, answering questions appropriately most likely secondary to 2 mg of Ativan IV heart rate 45-53, normotensive with MAP's in the mid 70s. History PFSH Past Medical History Hx Anticoagulant Therapy: Yes Arthritis: Yes (lower back) Asthma: No Atrial Fibrillation: Yes Autoimmune Disease: No Blood Disorders: No Anxiety: Yes Depression: Yes Heart Rhythm Problems: Yes (afib) Cancer: Yes (skin, left thigh and nose (removed)) Cardiac Catheterization: No Cardiovascular Problems: Yes High Cholesterol: Yes (controlled) Chemotherapy: No Chest Pain: No Congestive Heart Failure: No COPD: No Cerebrovascular Accident: No Diabetes: No Diminished Hearing: No Endocrine: No Gastrointestinal Disorders: No GERD: No Glaucoma: No Genitourinary: No Headaches: No Hepatitis: No Hiatal Hernia: No Heparin Induced Thrombocytopen: No Hypertension: Yes Immune Disorder: No Implanted Vascular Access Dvce: Yes Kidney Stones: No Musculoskeletal: Yes Neurologic: No Psychiatric: Yes Reproductive: No Respiratory: No Immunizations Current: Yes Migraines: No Myocardial Infarction: No Radiation Therapy: No Renal Failure: No Seizures: No Sickle Cell Disease: No Sleep Apnea: No Thyroid Disease: Yes Ulcer: No PNEUMOCCOCAL Vaccine (Year): 3 ?: Not Menopausal: Yes : 2 Para: 1 Past Surgical History Abdominal Surgery: No AICD: No Appendectomy: No Arteriovenous Shunt: No Cardiac Surgery: Yes (ablation x4) Cholecystectomy: No Coronary Artery Bypass Graft: No Ear Surgery: No Endocrine Surgery: No Eye Surgery: No Genitourinary Surgery: No Gynecologic Surgery: Yes (hysterectomy) Hysterectomy: Yes Insulin Pump: No Joint Replacement: Yes (bilat hip) Neurologic Surgery: No Oral Surgery: No Pacemaker: No Thoracic Surgery: No Other Surgery: Yes (Skin CA removed fro forehead and leg) Family History Family Myocardial Infarction: Yes Social History Alcohol Use: No Tobacco Use: No (quit at 27 years of age) Substance Use: No Allergies-Medications Allergies-Medications (Allergen,Severity, Reaction): Coded Allergies: Sulfa (Sulfonamide Antibiotics) (Unverified Allergy, Severe, RASH, ) cefaclor (Unverified Allergy, Severe, RASH, 06/01/17) paroxetine (Unverified Allergy, Severe, 06/01/17) ciprofloxacin (Unverified Allergy, Unknown, GI UPSET, 06/01/17) clonidine (Unverified Allergy, Unknown, SKIN IRRITATION, 06/01/17) Uncoded Allergies: latex bandages (Adverse Reaction, Mild, SKIN REDNESS, RASH, 05/11/17) Reported Meds & Prescriptions Reported Meds & Active Scripts Active Levothyroxine (Levothyroxine Sodium) 25 Mcg Tab 25 Mcg PO DAILY@0600 Diltiazem CD 24 HR 240 Mg Caper 240 Mg PO DAILY 30 Days Lopressor (Metoprolol Tartrate) 50 Mg Tab 50 Mg PO BID Digoxin 0.125 Mg Tab 0.125 Mg PO DAILY Reported Centrum Silver Adult 50+ (Multiple Vitamins W/ Minerals) 0.4 Mg-300 Mcg-250 Mcg Tab 1 Tab PO DAILY Amiodarone (Amiodarone HCl) 200 Mg Tab 200 Mg PO DAILY Eliquis (Apixaban) 5 Mg Tab 5 Mg PO BID Estradiol Patch 168 HR (Estradiol) 0.025 Mg/24 Hr Patch 1 Patch T-DERMAL Q7D Remove old patch and discard when new patch being placed. Senna Plus 8.6-50 mg (Sennosides-Docusate Sodium) 1 Tab Tab 2 Tab PO DAILY Vitamin D3 (Cholecalciferol) 1,000 Unit Cap 1,000 Units PO DAILY Hydrochlorothiazide 25 Mg Tab 25 Mg PO DAILY Lovastatin 20 Mg Tab 20 Mg PO DAILY Ramipril 10 Mg Cap 10 Mg PO BID Alprazolam 0.25 Mg Tab 0.25 Mg PO Q6H PRN ROS Review of Systems General / Constitutional: No: Fever Eyes: No: Visual changes HENT: No: Headaches Cardiovascular: No: Chest Pain or Discomfort Respiratory: Positive: Shortness of Breath Gastrointestinal: No: Abdominal Pain Genitourinary: No: Dysuria Musculoskeletal: No: Pain Skin: No Rash Neurologic: No: Weakness Psychiatric: No: Depression Endocrine: No: Polydipsia Hematologic/Lymphatic: No: Easy Bruising Objective Vital Signs Date Time Temp Pulse Resp B/P (MAP) Pulse Ox O2 Delivery O2 Flow Rate FiO2 06/06/17 14:06 93 Nasal Cannula 4.00 06/06/17 14:00 49 06/06/17 14:00 94.5 18 127/62 (83) Result Diagram: 06/06/17 1030 06/06/17 1030 Imaging Last Impressions Chest X-Ray 06/06/17 1026 Signed Impressions: Service Date/Time: Tuesday, June 06, 2017 10:34 - CONCLUSION: No evidence of acute cardiopulmonary disease. Lyndon Lee MD Objective Remarks GENERAL: Well-developed well-nourished elderly female, somnolent SKIN: Warm and dry. HEAD: Atraumatic. Normocephalic. EYES: Pupils equal, round reactive to light and accommodation. No scleral icterus. No injection or drainage. ENT: No nasal bleeding or discharge. Mucous membranes pink and moist. NECK: Trachea midline. No JVD. CARDIOVASCULAR: Irregular rate and rhythm. RESPIRATORY: No accessory muscle use. Clear to auscultation. Breath sounds equal bilaterally. GASTROINTESTINAL: Abdomen soft, non-tender, nondistended. No guarding. MUSCULOSKELETAL: Extremities without clubbing, cyanosis, or edema. No obvious deformities. NEUROLOGICAL: Lethargic. RASS -1. No gross focal/sensory deficits. Follows commands in all 4 extremities. Urinary Catheter: No A/P Assessment and Plan Assessment This is a 81-year-old female with history of chronic atrial fib with recent diagnosis of RVR, status post multiple cardiac ablations in the past, now presenting with A. fib with a slow ventricular response. This is most likely secondary to multiple rate control medications. Admit to ICU. Assessment A. fib with slow ventricular response Essential hypertension Status post cardiac ablation-last procedure 04/20/17 Plan Plan by systems: Neurologic: Hold all sedative type medications. Patient extremely lethargic status post 2 mg of Ativan IV push Neurochecks per ICU protocol Tylenol 650 mg by mouth every 6 hours when necessary for temp greater than 101 or pain 1-6 Respiratory: Maintain O2 sat greater than 92% Provide O2 via nasal cannula 1-4 L/m Bronchodilators every 4 hours when necessary for wheezing Cardiovascular: Cardiology consulted- follow-up recommendations Maintain application of external pacemaker pads Continue low-dose dopamine Maintain MAP>65mmHg Hold cardiac medications -Cardizem CD 240, metoprolol 50 mg 3 times a day, amiodarone 200 mg, digoxin 0.125 mg Patient received glucagon 2 mg IV in ED-no response Digoxin level I.3 Continue Eliquis 5 mg twice a day Renal: No Shukla -- Strict I/Os FEN/GI: 0.9 normal saline at 84 cc/hour Maintain NPO status while patient is lethargic, advance heart healthy diet as tolerated Zofran for nausea Bowel regimen Heme/ID: Monitor CBC Obtain cultures if clinically indicated Endocrine: Glucose monitoring per ICU protocol, low dose regimen Continue levothyroxine 25 mcgs/daily TSH level 5.64 -- SSI Prophylaxis: GI Prophylaxis Pepcid DVT Prophylaxis -- SCDs Patient currently on Eliquis twice a day Lines: Peripheral IVs 2 Dispo: my billing statement This patient remains critically ill with one or more organ systems which are or may become a threat to life. I have spent in excess of 45 minutes discontinuously in the care and management of this patient. This time is exclusive of procedures, and includes, but is not limited to, evaluation of the patient, review of the medical record, discussions with family, consultants, nursing staff, or respiratory therapy, and documentation in the medical record. Physician Loulou Wick MD Jun 06, 2017 15:50
--- NOTE | 2017-06-06 16:20 | MB ---
cc: FABY GONZÁLES MD DATE OF CONSULTATION: 06/06/2017. REASON FOR CONSULTATION: Bradycardia. HISTORY OF PRESENT ILLNESS: The patient is a very pleasant 81-year-old woman who sees my partner, Dr. Rincon, for a history of multiple atrial fibrillation ablations with recent admission due to rapid ventricular response. She awoke feeling very bad and her found her heart rates to be in the 30s. EMS was called, which confirmed this. They gave her some Ativan at the time and the patient has been somewhat somnolent / disoriented since. Her initial heart rates in the emergency department were in the 30s. She was started on a dopamine drip, which has brought her heart rates up to the 50s. Of note, per the emergency room report, atropine and glucagon did not have any appreciable effect. Currently she feels somnolent but denies chest pain, shortness of breath, lightheadedness or dizziness while she is lying in bed. PAST MEDICAL HISTORY: 1. Atrial fibrillation status post multiple ablations. CURRENT MEDICATIONS: 1. Dopamine. 2. Pepcid. 3. Eliquis 5 milligrams twice a day. ALLERGIES: MULTIPLE, PLEASE SEE THE ELECTRONIC MEDICAL RECORD. PHYSICAL EXAMINATION: VITAL SIGNS: Afebrile, pulse 55, respiratory rate 18, blood pressure 127/60, satting 93 on 4 liters. GENERAL: A pleasant, though somnolent woman, mildly confused ( says this is since the Ativan). No distress. NECK: No jugular venous distention. LUNGS: Clear to auscultation bilaterally. CARDIOVASCULAR: Bradycardic. Irregular. No murmurs appreciated. ABDOMEN: Benign. EXTREMITIES: No edema. LABORATORY DATA: Digoxin is 1.3. INR is 1.0. Sodium 133, potassium 4.1, chloride 104, bicarbonate 19.8, BUN 25, creatinine 1.2. White count 6.0, hematocrit 37.0, platelets 282,000. EKGS: EKG showed what appears to be a junctional rhythm at about 35. No appreciable atrial activity is present. Current telemetry shows sinus bradycardia in the 50s. IMPRESSION: Sick sinus syndrome: The patient seems to have sick sinus syndrome with previous atrial fibrillation with rapid ventricular response and then presenting with junctional rhythm. Her Digoxin was on the higher end of the therapeutic range but given the resolution of her severe bradycardia with dopamine, I do not feel it is required to give her Digibind at this time. Rather, I think the most prudent course of action is to give fluids when her medications wear off naturally and Dr. Rincon can see her in the morning and determine where we go from here. She may require a pacemaker given the difficulty with both tachycardic and bradycardic rates. Further recommendations will be based on her clinical course. Thank you again for the opportunity to participate in this patient's care. MD SILVIO Maloney/SHIRA /4:11 PM /4:16 PM
[2017-06-06] MEDS: INSULIN ASPART SUPPLEMENTAL SCALE SQ SCH ×2 (17:00→20:29)
[2017-06-06 19:08] LABS: BLOOD, URINE NEG (NEG); GLUCOSE,URINE NEG (NEG); KETONE, URINE NEG (NEG); NITRITE,URINE NEG (NEG); URINE COLOR YELLOW (YELLW/STRAW)
[2017-06-06 19:34] LABS: RBC, URINE 0-3 /hpf (0-3); WBC, URINE 0-2 /hpf (0-5)
[2017-06-06 19:35] LABS: COMMENT (UR) CATH-CULT NOT IND; CULTURE IF INDICATED CATH CULTURE NOT IND; HYALINE CAST, URINE 0-2 /lpf (RARE)
[2017-06-06] MEDS: ALPRAZolam 0.25 MG TAB PO PRN (20:21)
[2017-06-06] MEDS: APIXABAN 5 MG TABLET PO SCH (20:21)
[2017-06-06] MEDS: DOCUSATE SODIUM 50 MG/SENNA 8.6 MG TAB PO SCH (20:21)
[2017-06-06] MEDS: FAMOTIDINE 20 MG/2 ML VIAL IV PUSH SCH (20:22)
[2017-06-06] MEDS: SODIUM CHLORIDE 0.9% FLUSH 10 ML FLUSH IV FLUSH SCH (20:22)
[2017-06-07] VITALS (19 sets, daily range): BP systolic 147–177; BP diastolic 68–81; PULSE 56–79; RESP 17–37; TEMP 97.8–98.2; O2SAT 90–98
[2017-06-07] MEDS: CHLORHEXIDINE GLUCONATE 2 % 1 PACK (2 CLOTHS) TOP SCH (04:00)
--- NOTE | 2017-06-07 07:00 | HHI.CCPN ---
Subjective Remarks/Hospital Course HPI This is a 81-year-old female that presented to [facility] ED, with complaints of generalized malaise and weakness and bradycardia. The patient's past medical history is significant for cardiac disease recently repeated bouts of A. fib RVR uncontrolled, with a history of cardiac ablations, last procedure performed 04/20/[address] Rincon.The patient was recently admitted for atrial fibrillation RVR , 06/01 and discharged 06/04/17 for A. fib with RVR with medication management. Patient was seen by Dr. Rincon, crab meat processor. Patient was discharged home with prescription for digoxin 0.125 mg daily, diltiazem CD 240 mg daily, metoprolol 50 mg twice a day, and continue with amiodarone 200 mg daily. Patient also on Eliquis 5 mg twice a day. Metoprolol was increased to 50 mg 3 times a day, yesterday per report from patient's ..Patient has history of hypothyroidism and on levothyroxine. Patient started feeling generalized malaise and weakness and bradycardia this morning, after taking her medications. Upon arrival of EMS, the patient's pulse was in the 30s and 40s. External pacer was applied. The patient received Narcan 0.8 mg, and Ativan 2 mg IV Patient was transferred to ED for evaluation. Patient was given atropine 1 mg IV with by EMS without improvement of the bradycardia. In transporting patient and in the ED the patient was noted to be normotensive. The patient received glucagon 2 mg and was bolused with 2 L IV fluid. Patient was placed on low-dose dopamine 3 mcgs, with heart rate in the 50's. Per discussion with Dr. Twan John crab meat processor manager application was notified, official consult placed. Critical care medicine was consulted for management. Upon my arrival to the ED the patient was noted to be somnolent, but easily arousable, answering questions appropriately most likely secondary to 2 mg of Ativan IV heart rate 45-53, normotensive with MAP's in the mid 70s. Subjective: 06/07: Afebrile. Dopamine infusion discontinued @03:30AM. Patient's heart rate remains in the 70s, normotensive with systolic blood pressure in the 160' S. Patient is now alert and oriented. No chest pain. Objective Vital Signs Date Time Temp Pulse Resp B/P (MAP) Pulse Ox O2 Delivery O2 Flow Rate FiO2 06/07/17 06:00 68 06/07/17 04:00 98.1 18 151/73 (99) 97 06/06/17 19:05 Nasal Cannula 4.00 Intake and Output 06/07/17 06/07/17 06/08/17 08:00 16:00 00:00 Intake Total 336 ml Output Total 3450 ml Balance -3114 ml Result Diagram: 06/06/17 1030 06/06/17 1030 Imaging Last Impressions Chest X-Ray 06/06/17 1026 Signed Impressions: Service Date/Time: Tuesday, June 06, 2017 10:34 - CONCLUSION: No evidence of acute cardiopulmonary disease. Lyndon Lee MD Objective Remarks GENERAL: Well-developed well-nourished elderly female, alert and oriented pleasantly conversant SKIN: Warm and dry. HEAD: Atraumatic. Normocephalic. EYES: Pupils equal, round reactive to light and accommodation. No scleral icterus. No injection or drainage. ENT: No nasal bleeding or discharge. Mucous membranes pink and moist. NECK: Trachea midline. No JVD. CARDIOVASCULAR: Normal rate and intermittent irregular rhythm. Telemetry showing intermittent bouts sinus rhythm and atrial fibrillation HR 70's RESPIRATORY: No accessory muscle use. Clear to auscultation. Breath sounds equal bilaterally. GASTROINTESTINAL: Abdomen soft, non-tender, nondistended. No guarding. MUSCULOSKELETAL: Extremities without clubbing, cyanosis, or edema. No obvious deformities. NEUROLOGICAL: GCS 15. RASS 0. No gross focal/sensory deficits. Follows commands in all 4 extremities. Urinary Catheter: Yes Assessment to: Remove Date of Insertion: Jun 06, 2017 Date of Removal: Jun 07, 2017 A/P Assessment and Plan Assessment A. fib with slow ventricular response Essential hypertension Status post cardiac ablation-last procedure 04/20/17 Anxiety disorder Plan Neurologic: Hold all sedative type medications. Neurochecks per ICU protocol Tylenol 650 mg by mouth every 6 hours when necessary for temp greater than 101 or pain 1-6 Xanax 0.25mg every 6 hours when necessary for agitation/anxiety Respiratory: Maintain O2 sat greater than 92%, currently on room air to saturation greater than 95% Provide O2 via nasal cannula 1-4 L/m, if required Bronchodilators every 4 hours when necessary for wheezing Cardiovascular: Cardiology consulted- seen by Dr. Langford yesterday. Plan for resumption of certain cardiac meds and possible pacemaker placement secondary to tachycardic/ bradycardic rhythms. Patient to see Dr. Rincon, will await recommendations. Maintain application of external pacemaker pads Dopamine discontinued 06/07 Maintain MAP>65mmHg Cardiac medications on hold -Cardizem CD 240, metoprolol 50 mg 3 times a day, amiodarone 200 mg, digoxin 0.125 mg 06/06 Patient received glucagon 2 mg IV in ED-no response 06/06 Digoxin level I.3 Continue Eliquis 5 mg twice a day Renal: No Shukla -- Strict I/Os FEN/GI: Decrease 0.9 normal saline at 42 cc/hour, discontinued patient tolerates diet Begin clear liquid diet, advance heart healthy diet as tolerated Zofran for nausea Bowel regimen Heme/ID: Monitor CBC Obtain cultures if clinically indicated Endocrine: Glucose monitoring per ICU protocol, low dose regimen Continue levothyroxine 25 mcgs/daily TSH level 5.64 -- SSI Musculoskeletal: PT evaluate and treat, out of bed Prophylaxis: GI Prophylaxis Pepcid DVT Prophylaxis -- SCDs Patient currently on Eliquis twice a day Lines: Peripheral IVs 2 Dispo: Level 2. Discussed with CREOSOTING ENGINEER at bedside, discussed with Mr. Yogesh Ferreira and updated him on patient's medical status. Plan transfer to [facility], plan transfer to medical floor, preferably [facility]. Physician Loulou Wick MD Jun 07, 2017 07:00
[2017-06-07] MEDS: INSULIN ASPART SUPPLEMENTAL SCALE SQ SCH ×4 (07:35→20:04)
[2017-06-07] MEDS: FAMOTIDINE 20 MG/2 ML VIAL IV PUSH SCH ×2 (08:21→20:27)
[2017-06-07] MEDS: SODIUM CHLORIDE 0.9% FLUSH 10 ML FLUSH IV FLUSH SCH ×2 (08:21→20:27)
[2017-06-07] MEDS: DOCUSATE SODIUM 50 MG/SENNA 8.6 MG TAB PO SCH ×2 (08:21→20:27)
[2017-06-07] MEDS: APIXABAN 5 MG TABLET PO SCH ×2 (08:21→20:28)
[2017-06-07] MEDS: LEVOTHYROXINE SODIUM 25 MCG TAB PO SCH (08:26)
[2017-06-07] MEDS ORDERED: AMIODARONE 200 MG TAB PO ONE (11:45)
--- NOTE | 2017-06-07 12:05 | HHI.PR ---
Subjective Remarks Feeling better Objective Vital Signs Date Time Temp Pulse Resp B/P (MAP) Pulse Ox O2 Delivery O2 Flow Rate FiO2 06/07/17 10:00 72 06/07/17 09:00 71 17 173/77 (109) 96 06/07/17 08:32 96 Nasal Cannula 4.00 06/07/17 08:00 98.1 73 31 177/79 (111) 06/07/17 08:00 73 06/07/17 06:00 68 06/07/17 04:00 98.1 67 18 151/73 (99) 97 06/07/17 04:00 67 06/07/17 02:00 65 06/07/17 00:00 97.9 66 17 171/75 (107) 94 06/07/17 00:00 66 06/06/17 22:00 52 06/06/17 20:00 48 06/06/17 20:00 97.7 48 18 145/67 (93) 94 06/06/17 19:05 98 Nasal Cannula 4.00 06/06/17 18:00 47 06/06/17 16:00 94.6 53 18 127/62 (83) 93 06/06/17 16:00 49 06/06/17 14:06 93 Nasal Cannula 4.00 06/06/17 14:00 49 06/06/17 14:00 94.5 49 18 127/62 (83) 93 06/06/17 13:26 06/06/17 13:25 51 06/06/17 13:25 93.4 51 16 123/64 (83) 92 06/06/17 13:10 94 Nasal Cannula 2.00 06/06/17 13:04 51 18 121/57 (78) 93 Nasal Cannula 2.00 06/06/17 12:45 49 18 110/53 (72) 94 Nasal Cannula 2.00 06/06/17 12:40 47 18 107/77 (87) 93 Nasal Cannula 2.00 06/06/17 12:32 46 18 105/51 (69) 97 Nasal Cannula 2.00 06/06/17 12:15 41 18 105/51 (69) 93 Nasal Cannula 2.00 06/06/17 12:11 35 87/49 06/06/17 12:05 34 18 85/42 (56) 97 Nasal Cannula 2.00 I/O 06/06/17 06/06/17 06/06/17 06/07/17 06/07/17 06/07/17 07:00 15:00 23:00 07:00 15:00 23:00 Intake Total 480 ml 1336 ml 679 ml Output Total 650 ml 3450 ml Balance -170 ml -2114 ml 679 ml Intake Oral 480 ml 240 ml IV Total 1096 ml 679 ml Output Urine Total 650 ml 3450 ml Bladder Scan Volume Amount 550 ml Result Diagram: 06/06/17 1030 06/06/17 1030 Imaging Alert, full;y oriented lungs: ventilated Heart: S1, S2 regular, no gallop Abdomen: soft, no mass Ext: no edema Last Impressions Chest X-Ray 06/06/17 1026 Signed Impressions: Service Date/Time: Tuesday, June 06, 2017 10:34 - CONCLUSION: No evidence of acute cardiopulmonary disease. Lyndon Lee MD Current Medications Medications (Trade) Dose Ordered Sig/Keith Route Start Time Stop Time Status Last Admin (Brethine Inj) 1 mg UNSCH PRN SQ 06/06/17 12:00 Sodium Chloride 1,000 ml @ 42 mls/hr [id number] IV 06/06/17 13:00 06/06/17 23:07 (NS Flush) 2 ml UNSCH PRN IV FLUSH 06/06/17 13:00 (NS Flush) 2 ml BID IV FLUSH 06/06/17 21:00 06/07/17 08:21 (Tylenol) 650 mg Q6H PRN PO 06/06/17 13:00 (Pepcid Inj) 10 mg Q12HR IV PUSH 06/06/17 21:00 06/07/17 08:21 (Duoneb Neb) 1 ampule Q4HR NEB PRN INH 06/06/17 13:00 Miscellaneous Information 1 [id number] XX 06/06/17 13:00 (Chlorhexidine 2% Cloth) 3 pack Taper DAILY@04 TOP 06/07/17 04:00 06/03/18 03:59 06/07/17 04:00 (Chlorhexidine 2% Cloth) 3 pack UNSCH PRN TOP 06/06/17 13:00 (Magdalena-Colace) 1 tab BID PO 06/06/17 21:00 06/07/17 08:21 (Milk Of Magnesia Liq) 30 ml Q12H PRN PO 06/06/17 13:00 (Senokot) 17.2 mg Q12H PRN PO 06/06/17 13:00 (Dulcolax Supp) 10 mg DAILY PRN RECTAL 06/06/17 13:00 (Lactulose Liq) 30 ml DAILY PRN PO 06/06/17 13:00 Potassium Chloride 100 ml @ 50 mls/hr Q2H PRN IV 06/06/17 13:00 Potassium Chloride 100 ml @ 50 mls/hr Q2H PRN IV 06/06/17 13:00 (K-Lyte Cl Eff) 50 meq UNSCH PRN PO 06/06/17 13:00 Potassium Chloride 100 ml @ 25 mls/hr UNSCH PRN IV 06/06/17 13:00 Potassium Chloride 100 ml @ 50 mls/hr Q2H PRN IV 06/06/17 13:00 Magnesium Sulfate 4 gm/Sodium Chloride 100 ml @ 50 mls/hr UNSCH PRN IV 06/06/17 13:00 (Mag-Ox) 800 mg UNSCH PRN PO 06/06/17 13:00 Magnesium Sulfate 2 gm/Sodium Chloride 100 ml @ 50 mls/hr UNSCH PRN IV 06/06/17 13:00 (K-Phos) 2,000 mg Q4H PRN PO 06/06/17 13:00 Sodium Phosphate 30 mmol/Sodium Chloride 250 ml @ 42 mls/hr UNSCH PRN IV 06/06/17 13:00 (K-Phos) 2,000 mg UNSCH PRN PO/TUBE 06/06/17 13:00 Potassium Phosphate 30 mmol/ Sodium Chloride 260 ml @ 42 mls/hr UNSCH PRN IV 06/06/17 13:00 (D50w (Vial) Inj) 50 ml UNSCH PRN IV PUSH 06/06/17 13:00 (Glucagon Inj) 1 mg UNSCH PRN OTHER 06/06/17 13:00 (NovoLOG SUPPLEMENTAL SCALE) 1 ACHS SLIDING SCALE SQ 06/06/17 17:00 (Zofran Inj) 4 mg Q6HR PRN IV PUSH 06/06/17 15:00 (Eliquis) 5 mg BID PO 06/06/17 21:00 06/07/17 08:21 (Xanax) 0.25 mg Q6H PRN PO 06/06/17 20:15 06/06/17 20:21 (Synthroid) 25 mcg DAILY@0600 PO 06/07/17 08:15 06/07/17 08:26 (Cordarone) 200 mg DAILY PO 06/08/17 09:00 (Cardizem Cd) 240 mg DAILY PO 06/08/17 09:00 (Pravachol) 20 mg DAILY PO 06/08/17 09:00 (Altace) 10 mg BID PO 06/07/17 21:00 (Cardizem Cd) 240 mg ONCE ONCE PO 06/07/17 17:00 06/07/17 17:01 Assessment and Plan Problem List: (1) Bradycardia ICD Codes: R00.1 - Bradycardia, unspecified Status: Acute Plan: In sinus rhythm. Dopamine DC Doing better Amio and cardizem will be reinitiated (2) Atrial fibrillation with RVR ICD Codes: I48.91 - Unspecified atrial fibrillation Status: Acute Plan: In sinus rhythm. Apparently went emerson when converted into sinus rhythm. Meds reevaluated Digoxin and metoprolol DC Cardizem and amio reinitiated for now Will be observed case discussed with patient If stable can be DH tomorrow afternoon. Kin Rincon MD Jun 07, 2017 12:05
[2017-06-07] MEDS: ACETAMINOPHEN 325 MG TAB PO PRN (15:33)
[2017-06-07] MEDS ORDERED: DILTIAZEM-CD 240 MG CAP ER PO ONE (17:00)
[2017-06-07] MEDS: ALPRAZolam 0.25 MG TAB PO PRN (17:29)
[2017-06-07] MEDS: SODIUM CHLOR 0.9% 1000 ML INJ 1,000 ML IV SCH (18:55)
[2017-06-07] MEDS: RAMIPRIL 5 MG CAP PO SCH (20:28)
[2017-06-08] VITALS (15 sets, daily range): BP systolic 139–175; BP diastolic 69–77; PULSE 55–83; RESP 16–22; TEMP 97.7–98.6; O2SAT 92–97
[2017-06-08] MEDS: CHLORHEXIDINE GLUCONATE 2 % 1 PACK (2 CLOTHS) TOP SCH (04:00)
[2017-06-08] MEDS: LEVOTHYROXINE SODIUM 25 MCG TAB PO SCH (05:09)
[2017-06-08] MEDS: INSULIN ASPART SUPPLEMENTAL SCALE SQ SCH (06:55)
[2017-06-08] MEDS: FAMOTIDINE 20 MG/2 ML VIAL IV PUSH SCH ×2 (07:49→20:34)
[2017-06-08] MEDS: AMIODARONE 200 MG TAB PO SCH (07:49)
[2017-06-08] MEDS: RAMIPRIL 5 MG CAP PO SCH ×2 (07:50→20:33)
[2017-06-08] MEDS: PRAVASTATIN SOD 20 MG TAB PO SCH (07:50)
[2017-06-08] MEDS: DILTIAZEM-CD 240 MG CAP ER PO SCH (07:50)
[2017-06-08] MEDS: DOCUSATE SODIUM 50 MG/SENNA 8.6 MG TAB PO SCH ×2 (07:50→20:33)
[2017-06-08] MEDS: APIXABAN 5 MG TABLET PO SCH ×2 (07:50→20:33)
[2017-06-08] MEDS: SODIUM CHLORIDE 0.9% FLUSH 10 ML FLUSH IV FLUSH SCH ×2 (07:51→20:37)
[2017-06-08] MEDS: ALPRAZolam 0.25 MG TAB PO PRN ×2 (08:54→17:13)
--- NOTE | 2017-06-08 13:04 | HHI.CCPN ---
Subjective Remarks/Hospital Course HPI This is a 81-year-old female that presented to [facility] ED, with complaints of generalized malaise and weakness and bradycardia. The patient's past medical history is significant for cardiac disease recently repeated bouts of A. fib RVR uncontrolled, with a history of cardiac ablations, last procedure performed 04/20/[address] Rincon.The patient was recently admitted for atrial fibrillation RVR , 06/01 and discharged 06/04/17 for A. fib with RVR with medication management. Patient was seen by Dr. Rincon, physical ther. Patient was discharged home with prescription for digoxin 0.125 mg daily, diltiazem CD 240 mg daily, metoprolol 50 mg twice a day, and continue with amiodarone 200 mg daily. Patient also on Eliquis 5 mg twice a day. Metoprolol was increased to 50 mg 3 times a day, yesterday per report from patient's ..Patient has history of hypothyroidism and on levothyroxine. Patient started feeling generalized malaise and weakness and bradycardia this morning, after taking her medications. Upon arrival of EMS, the patient's pulse was in the 30s and 40s. External pacer was applied. The patient received Narcan 0.8 mg, and Ativan 2 mg IV Patient was transferred to ED for evaluation. Patient was given atropine 1 mg IV with by EMS without improvement of the bradycardia. In transporting patient and in the ED the patient was noted to be normotensive. The patient received glucagon 2 mg and was bolused with 2 L IV fluid. Patient was placed on low-dose dopamine 3 mcgs, with heart rate in the 50's. Per discussion with Dr. Twan John physical ther verification lead was notified, official consult placed. Critical care medicine was consulted for management. Upon my arrival to the ED the patient was noted to be somnolent, but easily arousable, answering questions appropriately most likely secondary to 2 mg of Ativan IV heart rate 45-53, normotensive with MAP's in the mid 70s. Subjective: 06/07: Afebrile. Dopamine infusion discontinued @03:30AM. Patient's heart rate remains in the 70s, normotensive with systolic blood pressure in the 160' S. Patient is now alert and oriented. No chest pain. 06/08: No acute events overnight. Patient was restarted on amiodarone 200 mg Cardizem CD 240 yesterday morning. The patient's heart rate has remained 70s to 80s, the patient's activity level has been advanced out of bed to bedside commode and to chair without any difficulty. The patient denies any chest pain , now tolerating a diet. Patient remains normotensive with systolic blood pressure in the 150s. Objective Vital Signs Date Time Temp Pulse Resp B/P (MAP) Pulse Ox O2 Delivery O2 Flow Rate FiO2 06/08/17 12:17 98.1 75 17 175/75 (108) 94 06/08/17 09:56 Nasal Cannula 3.00 Intake and Output 06/08/17 06/08/17 06/09/17 08:00 16:00 00:00 Intake Total 240 ml Balance 240 ml Result Diagram: 06/06/17 1030 06/06/17 1030 Imaging Last Impressions Chest X-Ray 06/06/17 1026 Signed Impressions: Service Date/Time: Tuesday, June 06, 2017 10:34 - CONCLUSION: No evidence of acute cardiopulmonary disease. Lyndon Lee MD Objective Remarks GENERAL: Well-developed well-nourished elderly female, alert and oriented pleasantly conversant SKIN: Warm and dry. HEAD: Atraumatic. Normocephalic. EYES: Pupils equal, round reactive to light and accommodation. No scleral icterus. No injection or drainage. ENT: No nasal bleeding or discharge. Mucous membranes pink and moist. NECK: Trachea midline. No JVD. CARDIOVASCULAR: Normal rate and intermittent irregular rhythm. Telemetry showing intermittent bouts sinus rhythm and atrial fibrillation HR 70's RESPIRATORY: No accessory muscle use. Clear to auscultation. Breath sounds equal bilaterally. GASTROINTESTINAL: Abdomen soft, non-tender, nondistended. No guarding. MUSCULOSKELETAL: Extremities without clubbing, cyanosis, or edema. No obvious deformities. NEUROLOGICAL: GCS 15. RASS 0. No gross focal/sensory deficits. Follows commands in all 4 extremities. Date of Insertion: Jun 06, 2017 Date of Removal: Jun 07, 2017 A/P Assessment and Plan Assessment A. fib with slow ventricular response Essential hypertension Status post cardiac ablation-last procedure 04/20/17 Anxiety disorder Plan Neurologic: Hold all sedative type medications. Neurochecks per ICU protocol Tylenol 650 mg by mouth every 6 hours when necessary for temp greater than 101 or pain 1-6 Xanax 0.25mg every 6 hours when necessary for agitation/anxiety Respiratory: Maintain O2 sat greater than 92%, currently on room air to saturation greater than 95% Provide O2 via nasal cannula 1-4 L/m, if required Bronchodilators every 4 hours when necessary for wheezing Cardiovascular: Cardiology consulted- seen by Dr. Langford yesterday. Plan for resumption of certain cardiac meds and possible pacemaker placement secondary to tachycardic/ bradycardic rhythms. Patient to see Dr. Rincon, will await recommendations. Maintain application of external pacemaker pads Dopamine discontinued 06/07 Maintain MAP>65mmHg Cardiac medications on hold -Cardizem CD 240, metoprolol 50 mg 3 times a day, amiodarone 200 mg, digoxin 0.125 mg 06/06 Patient received glucagon 2 mg IV in ED-no response 06/06 Digoxin level I.3 Continue Eliquis 5 mg twice a day 06/07 -Per cardiology, Dr. Rincon restarted on Cardizem CD 240, and amiodarone 200 mg/day Renal: No Shukla -- Strict I/Os FEN/GI: Saline lock IV Heart healthy diet Zofran for nausea Bowel regimen Heme/ID: Monitor CBC Obtain cultures if clinically indicated Endocrine: Glucose monitoring per ICU protocol, low dose regimen Continue levothyroxine 25 mcgs/daily TSH level 5.64 -- SSI Musculoskeletal: PT evaluate and treat, out of bed, utilizing bedside commode Prophylaxis: GI Prophylaxis Pepcid discontinued DVT Prophylaxis -- SCDs Patient currently on Eliquis twice a day Lines: Peripheral IVs 2 Dispo: Level 2. Patient will be transferred to the floor under the care of [place] hospitalists. Physician Loulou Wick MD Jun 08, 2017 13:04
[2017-06-08] MEDS: ACETAMINOPHEN 325 MG TAB PO PRN (14:54)
--- NOTE | 2017-06-08 19:21 | HHI.PR ---
Subjective Remarks Feeling better Objective Vital Signs Date Time Temp Pulse Resp B/P (MAP) Pulse Ox O2 Delivery O2 Flow Rate FiO2 06/08/17 16:05 98.6 73 18 153/72 (99) 96 06/08/17 12:51 62 06/08/17 12:17 98.1 75 17 175/75 (108) 94 06/08/17 11:00 83 22 95 06/08/17 10:00 82 20 154/74 (100) 95 06/08/17 10:00 82 06/08/17 09:56 92 Nasal Cannula 3.00 06/08/17 09:19 97 Nasal Cannula 2.00 06/08/17 09:00 70 16 160/76 (104) 94 06/08/17 08:08 92 21 06/08/17 08:00 81 06/08/17 08:00 97.7 81 17 165/72 (103) 92 06/08/17 06:00 61 06/08/17 04:00 65 06/08/17 04:00 98.0 65 16 154/71 (98) 93 06/08/17 02:00 64 06/08/17 00:00 98.1 55 16 143/69 (93) 95 06/08/17 00:00 55 06/07/17 22:00 56 06/07/17 20:00 60 06/07/17 20:00 97.8 60 17 147/68 (94) 94 06/07/17 19:53 94 Nasal Cannula 2.00 I/O 06/07/17 06/07/17 06/07/17 06/08/17 06/08/17 06/08/17 07:00 15:00 23:00 07:00 15:00 23:00 Intake Total 1336 ml 679 ml 620 ml 240 ml Output Total 3450 ml Balance -2114 ml 679 ml 620 ml 240 ml Intake Oral 240 ml 620 ml 240 ml IV Total 1096 ml 679 ml Output Urine Total 3450 ml # Voids 3 3 # Bowel Movements 5 0 Result Diagram: 06/06/17 1030 06/06/17 1030 Imaging Alert, fully oriented Lungs: ventilated Heart: S1, S2 regular, no gallop abdomen: soft, no mass Ext: no edema Last Impressions Chest X-Ray 06/06/17 1026 Signed Impressions: Service Date/Time: Tuesday, June 06, 2017 10:34 - CONCLUSION: No evidence of acute cardiopulmonary disease. Lyndon Lee MD Current Medications Medications (Trade) Dose Ordered Sig/Keith Route Start Time Stop Time Status Last Admin (Brethine Inj) 1 mg UNSCH PRN SQ 06/06/17 12:00 (NS Flush) 2 ml UNSCH PRN IV FLUSH 06/06/17 13:00 (NS Flush) 2 ml BID IV FLUSH 06/06/17 21:00 06/08/17 07:51 (Tylenol) 650 mg Q6H PRN PO 06/06/17 13:00 06/08/17 14:54 (Pepcid Inj) 10 mg Q12HR IV PUSH 06/06/17 21:00 06/08/17 07:49 (Duoneb Neb) 1 ampule Q4HR NEB PRN INH 06/06/17 13:00 Miscellaneous Information 1 Q361D XX 06/06/17 13:00 (Chlorhexidine 2% Cloth) 3 pack Taper DAILY@04 TOP 06/07/17 04:00 06/03/18 03:59 06/08/17 04:00 (Chlorhexidine 2% Cloth) 3 pack UNSCH PRN TOP 06/06/17 13:00 (Magdalena-Colace) 1 tab BID PO 06/06/17 21:00 06/08/17 07:50 (Milk Of Magnesia Liq) 30 ml Q12H PRN PO 06/06/17 13:00 06/08/17 07:51 (Senokot) 17.2 mg Q12H PRN PO 06/06/17 13:00 06/08/17 07:51 (Dulcolax Supp) 10 mg DAILY PRN RECTAL 06/06/17 13:00 (Lactulose Liq) 30 ml DAILY PRN PO 06/06/17 13:00 (Zofran Inj) 4 mg Q6HR PRN IV PUSH 06/06/17 15:00 (Eliquis) 5 mg BID PO 06/06/17 21:00 06/08/17 07:50 (Xanax) 0.25 mg Q6H PRN PO 06/06/17 20:15 06/08/17 17:13 (Synthroid) 25 mcg DAILY@0600 PO 06/07/17 08:15 06/08/17 05:09 (Cordarone) 200 mg DAILY PO 06/08/17 09:00 06/08/17 07:49 (Cardizem Cd) 240 mg DAILY PO 06/08/17 09:00 06/08/17 07:50 (Pravachol) 20 mg DAILY PO 06/08/17 09:00 06/08/17 07:50 (Altace) 10 mg BID PO 06/07/17 21:00 06/08/17 07:50 Assessment and Plan Problem List: (1) Bradycardia ICD Codes: R00.1 - Bradycardia, unspecified Status: Acute Plan: In sinus rhythm HR control Meds modified On amio can be DH if stable in AM Case discussed with her and her . (2) Atrial fibrillation with RVR ICD Codes: I48.91 - Unspecified atrial fibrillation Status: Acute Plan: Doing better In sinus ambulating can be DH in AM Kin Rincon MD Jun 08, 2017 19:21
[2017-06-09] VITALS: BP 153/84; PULSE 80; RESP 18; TEMP 98.3; O2SAT 92
[2017-06-09 04:00] VITALS: BP 161/75; PULSE 87; RESP 18; TEMP 98.1; O2SAT 94
[2017-06-09] MEDS: LEVOTHYROXINE SODIUM 25 MCG TAB PO SCH (05:00)
[2017-06-09] MEDS: CHLORHEXIDINE GLUCONATE 2 % 1 PACK (2 CLOTHS) TOP SCH (05:01)
--- NOTE | 2017-06-09 07:54 | PD.CARD.PN ---
Subjective Subjective Remarks Feeling better. In NSR on tele. Objective Medications Current Medications Medications (Trade) Dose Ordered Sig/Keith Route Start Time Stop Time Status Last Admin (Brethine Inj) 1 mg UNSCH PRN SQ 06/06/17 12:00 (NS Flush) 2 ml UNSCH PRN IV FLUSH 06/06/17 13:00 (NS Flush) 2 ml BID IV FLUSH 06/06/17 21:00 06/08/17 20:37 (Tylenol) 650 mg Q6H PRN PO 06/06/17 13:00 06/08/17 14:54 (Pepcid Inj) 10 mg Q12HR IV PUSH 06/06/17 21:00 06/08/17 20:34 (Duoneb Neb) 1 ampule Q4HR NEB PRN INH 06/06/17 13:00 Miscellaneous Information 1 Q361D XX 06/06/17 13:00 (Chlorhexidine 2% Cloth) 3 pack Taper DAILY@04 TOP 06/07/17 04:00 06/03/18 03:59 06/09/17 05:01 (Chlorhexidine 2% Cloth) 3 pack UNSCH PRN TOP 06/06/17 13:00 (Magdalena-Colace) 1 tab BID PO 06/06/17 21:00 06/08/17 20:33 (Milk Of Magnesia Liq) 30 ml Q12H PRN PO 06/06/17 13:00 06/08/17 07:51 (Senokot) 17.2 mg Q12H PRN PO 06/06/17 13:00 06/08/17 07:51 (Dulcolax Supp) 10 mg DAILY PRN RECTAL 06/06/17 13:00 (Lactulose Liq) 30 ml DAILY PRN PO 06/06/17 13:00 (Zofran Inj) 4 mg Q6HR PRN IV PUSH 06/06/17 15:00 (Eliquis) 5 mg BID PO 06/06/17 21:00 06/08/17 20:33 (Xanax) 0.25 mg Q6H PRN PO 06/06/17 20:15 06/08/17 17:13 (Synthroid) 25 mcg DAILY@0600 PO 06/07/17 08:15 06/09/17 05:00 (Cordarone) 200 mg DAILY PO 06/08/17 09:00 06/08/17 07:49 (Cardizem Cd) 240 mg DAILY PO 06/08/17 09:00 06/08/17 07:50 (Pravachol) 20 mg DAILY PO 06/08/17 09:00 06/08/17 07:50 (Altace) 10 mg BID PO 06/07/17 21:00 06/08/17 20:33 Vital Signs / I&O Vital Signs Date Time Temp Pulse Resp B/P (MAP) Pulse Ox O2 Delivery O2 Flow Rate FiO2 06/09/17 04:00 98.1 87 18 161/75 (103) 94 06/09/17 00:00 98.3 80 18 153/84 (107) 92 06/08/17 21:37 97 Nasal Cannula 3.00 06/08/17 20:00 63 06/08/17 20:00 Room Air 06/08/17 19:45 98.2 67 18 139/77 (97) 06/08/17 16:05 98.6 73 18 153/72 (99) 96 06/08/17 12:51 62 06/08/17 12:17 98.1 75 17 175/75 (108) 94 06/08/17 11:00 83 22 95 06/08/17 10:00 82 20 154/74 (100) 95 06/08/17 10:00 82 06/08/17 09:56 92 Nasal Cannula 3.00 06/08/17 09:19 97 Nasal Cannula 2.00 06/08/17 09:00 70 16 160/76 (104) 94 06/08/17 08:08 92 21 06/08/17 08:00 81 06/08/17 08:00 97.7 81 17 165/72 (103) 92 I/O 06/08/17 06/08/17 06/08/17 06/09/17 06/09/17 06/09/17 06:59 14:59 22:59 06:59 14:59 22:59 Intake Total 240 ml 480 ml Output Total 1000 ml Balance 240 ml -520 ml Intake Oral 240 ml 480 ml Output Urine Total 1000 ml # Voids 3 # Bowel Movements 0 0 Physical Exam GENERAL: Well-nourished, well-developed patient. SKIN: Warm and dry. HEAD: Normocephalic. EYES: No scleral icterus. No injection or drainage. NECK: Supple, trachea midline. No JVD or lymphadenopathy. CARDIOVASCULAR: Regular rate and rhythm without murmurs, gallops, or rubs. RESPIRATORY: Breath sounds equal bilaterally. No accessory muscle use. GASTROINTESTINAL: Abdomen soft, non-tender, nondistended. EXTREMITIES: No cyanosis, or edema. NEUROLOGICAL: Awake, alert, and oriented x 3. Non-focal. Imaging Last Impressions Chest X-Ray 06/06/17 1026 Signed Impressions: Service Date/Time: Tuesday, June 06, 2017 10:34 - CONCLUSION: No evidence of acute cardiopulmonary disease. Lyndon Lee MD Assessment and Plan Problem List: (1) Bradycardia ICD Codes: R00.1 - Bradycardia, unspecified Status: Acute Plan: Sinus rhythm on telemetry, stable off digoxin and metoprolol. Feeling better. (2) Atrial fibrillation with RVR ICD Codes: I48.91 - Unspecified atrial fibrillation Status: Acute Plan: Amiodarone and Cardizem initiated with no recurrent bradycardia. Per my discussion with Dr. Rincon she can be discharged home at the discretion of the primary assistant produce manager with outpatient follow-up in 1-2 weeks Katrina Morataya Jun 09, 2017 07:54
[2017-06-09 08:00] VITALS: BP 150/72; PULSE 87; RESP 18; TEMP 98.8; O2SAT 92
[2017-06-09] MEDS: DILTIAZEM-CD 240 MG CAP ER PO SCH (08:30)
[2017-06-09] MEDS: PRAVASTATIN SOD 20 MG TAB PO SCH (08:30)
[2017-06-09] MEDS: APIXABAN 5 MG TABLET PO SCH (08:30)
[2017-06-09] MEDS: RAMIPRIL 5 MG CAP PO SCH (08:30)
[2017-06-09] MEDS: AMIODARONE 200 MG TAB PO SCH (08:31)
[2017-06-09] MEDS: FAMOTIDINE 20 MG/2 ML VIAL IV PUSH SCH (08:31)
[2017-06-09] MEDS: DOCUSATE SODIUM 50 MG/SENNA 8.6 MG TAB PO SCH (08:33)
[2017-06-09] MEDS: SODIUM CHLORIDE 0.9% FLUSH 10 ML FLUSH IV FLUSH SCH (08:34)
--- NOTE | 2017-06-09 11:46 | HHI.DCPOC ---
Discharge Care Plan Diagnosis: (1) Bradycardia Your Health Problems Are: Difficulty with ADL Exercise Tolerance Goals to Promote Your Health * To prevent worsening of your condition and complications * To maintain your health at the optimal level Directions to Meet Your Goals Take your medications as prescribed Follow your dietary instruction Follow activity as directed Keep your appointments as scheduled Take your immunizations and boosters as scheduled If your symptoms worsen call your PCP, if no PCP go to Urgent Care Center or Emergency Room Smoking is Dangerous to Your Health. Avoid second hand smoke Call the 24-hour hour crisis hotline for domestic abuse at Steve Guillaume MD Jun 09, 2017 11:46
--- NOTE | 2017-06-09 11:47 | HHI.FF ---
Face to Face Verification Diagnosis: (1) Bradycardia Physical Therapy Order: Evaluate and Treat, Improve ambulation, Strength and gait training Home Health Nursing Order: Medical education Medication education-adverse effect Nursing assessment with vital signs I have seen patient Rachna Ferreira on 06/09/17. My clinical findings support the need for the requested home health care services because: Ltd mobility - disease progression I certify that my clinical findings support that this patient is homebound because: Unsafe to leave home unassisted Steve Guillaume MD Jun 09, 2017 11:47
--- NOTE | 2017-06-09 11:49 | HHI.DS ---
Discharge Summary Admission Date Jun 06, 2017 at 12:15 Discharge Date: Jun 09, 2017 Admitting Diagnosis bradycardia. Renal insufficiency. (1) Atrial fibrillation with RVR ICD Code: I48.91 - Unspecified atrial fibrillation Diagnosis: Principal Status: Acute (2) Bradycardia ICD Code: R00.1 - Bradycardia, unspecified Diagnosis: Principal Status: Acute Procedures none Brief History - From Admission 81-year-old female complains of generalized malaise and weakness and bradycardia. Patient has history of atrial fibrillation and was admitted to [place] June 01 and discharged June 04 for A. fib with RVR. Patient was seen by Dr. Rincon, zinc plating machine operator. Patient was discharged home with prescription for digoxin 0.125 mg daily, diltiazem CD 240 mg daily, metoprolol 50 mg twice a day, and continue with amiodarone 200 mg daily. Patient also on Eliquis 5 mg twice a day. CBC/BMP: 06/06/17 1030 06/06/17 1030 Significant Findings Laboratory Tests Test 06/06/17 14:00 06/06/17 17:00 Urine Squamous Epithelial Cells 6-8 /hpf (0-5) Imaging Last Impressions Chest X-Ray 06/06/17 1026 Signed Impressions: Service Date/Time: Tuesday, June 06, 2017 10:34 - CONCLUSION: No evidence of acute cardiopulmonary disease. Lyndon Lee MD Hospital Course A. fib with slow ventricular response. Now NSR on Cardizem, amiodarone and Eliquis. Status post cardiac ablation-last procedure 04/20/17 Acute kidney injury likely secondary to hypoperfusion. Mild. Nonoliguric. Hold hydrochlorothiazide and repeat BMP June 14. Avoid nephrotoxins Acute transaminitis likely secondary to hypoperfusion. Mild. Asymptomatic. Hold statin for now. Repeat LFTs June 14 Hyperglycemia. Obtain fasting glucose outpatient Essential hypertension. Stable Anxiety disorder. Stable Pt Condition on Discharge: Stable Discharge Disposition: Disch w/ Home Health Serv Discharge Time: > 30 minutes Discharge Instructions DIET: Follow Instructions for: Heart Healthy Diet Activities you can perform: Regular-No Restrictions Activities to Avoid: Driving Follow up Referrals: Cardiology - 1 Week PCP Follow-up - 1 Week New Orders: COMP MET PROF (CMP) - 06/14/17 Continued Medications: Alprazolam (Alprazolam) 0.25 Mg Tab 0.25 MG PO Q6H PRN for ANXIETY, TAB 0 Refills Amiodarone (Amiodarone) 200 Mg Tab 200 MG PO DAILY for Regulate Heart Beat, #30 TAB 0 Refills Apixaban (Eliquis) 5 Mg Tab 5 MG PO BID for Blood Clot Prevention, #60 TAB 0 Refills Cholecalciferol (Vitamin D3) 1,000 Unit Cap 1000 UNITS PO DAILY for Nutritional Supplement, #1 BOTTLE 0 Refills Diltiazem CD 24 HR (Diltiazem CD 24 HR) 240 Mg Caper 240 MG PO DAILY for afib for 30 Days, #30 CAP Estradiol Patch 168 HR (Estradiol Patch 168 HR) 0.025 Mg/24 Hr Patch 1 PATCH T-DERMAL Q7D for Estrogen Supplements, #4 PATCH 0 Refills Remove old patch and discard when new patch being placed. Levothyroxine (Levothyroxine) 25 Mcg Tab 25 MCG PO DAILY@0600 for Thyroid, #31 TAB Multiple Vitamins W/ Minerals (Centrum Silver Adult 50+) 0.4 Mg-300 Mcg-250 Mcg Tab 1 TAB PO DAILY for Nutritional Supplement Ramipril (Ramipril) 10 Mg Cap 10 MG PO BID, #60 CAP 0 Refills Sennosides-Docusate Sodium (Senna Plus 8.6-50 mg) 1 Tab Tab 2 TAB PO DAILY Discontinued Medications: Hydrochlorothiazide (Hydrochlorothiazide) 25 Mg Tab 25 MG PO DAILY, #30 TAB 0 Refills Lovastatin (Lovastatin) 20 Mg Tab 20 MG PO DAILY for Cholesterol Management, #30 TAB 0 Refills Steve Guillaume MD Jun 09, 2017 11:49
== END 2017-06-09 13:41 | disposition home health service (06) | DRG 309 ==
LOC: NEPC 10:17 → NEDA 12:15 → HIMN 13:17 → N04A 06-08 12:13
PROVIDERS: ADMIT Internal Medicine; ATTEND Internal Medicine
DX: I49.5 Sick sinus syndrome (principal); N17.9 Acute kidney failure, unspecified; I48.2 Chronic atrial fibrillation; I10 Essential (primary) hypertension; F41.9 Anxiety disorder, unspecified; E03.9 Hypothyroidism, unspecified; R73.9 Hyperglycemia, unspecified; F32.9 Major depressive disorder, single episode, unspecified; Z79.01 Long term (current) use of anticoagulants; Z85.828 Personal history of other malignant neoplasm of skin; Z82.49 Family history of ischemic heart disease and other diseases of the circulatory system; Z87.891 Personal history of nicotine dependence; Z88.2 Allergy status to sulfonamides; Z88.1 Allergy status to other antibiotic agents; Z91.040 Latex allergy status; Z96.643 Presence of artificial hip joint, bilateral
CPT/HCPCS: 71010; 80053; 80162; 81001; 82550; 82948; 84100; 84443; 84484; 85025; 85610; 85730; 87641; 93005; 96361; 96374; 96375; J1265; J1610; J2405; J7030

== ENCOUNTER 2017-07-03 07:34 | Observation (INO) | payer MEDICARE, BC ==
[~2017-07-03] VITALS: Ht 162.6 cm; Wt 67.0 kg
[2017-07-03] VITALS (15 sets, daily range): BP systolic 151–236; BP diastolic 72–112; PULSE 60–86; RESP 11–22; TEMP 97.1–97.5; O2SAT 88–97
[~2017-07-03 07:34] MED LIST changes: -DIGO0.12 PO; -HYDR25TA5 PO; -LOVA20TA PO; -METO-309 PO
[2017-07-03] MEDS ORDERED: hydrALAZINE HCL 20 MG/ML VIAL IV PUSH ONE (08:00)
[2017-07-03 08:20] LABS: AUTOMATED NEUTROPHIL # 2.5 TH/MM3 (1.8-7.7); BASOPHIL % 0.8 % (0.0-2.0); EOSINOPHIL # 0.3 TH/MM3 (0-0.4); EOSINOPHIL % 4.8 % (0.0-4.0); HEMO FLAGS DIFF FINAL; LYMPH % 34.8 % (9.0-44.0); LYMPHOCYTE # 1.8 TH/MM3 (1.0-4.8); MEAN CORPUSCULAR HEMOGLOBIN 32.2 PG (27.0-34.0); MEAN CORPUSCULAR HGB CONC 34.6 % (32.0-36.0); MONO % 11.1 % (0.0-8.0); NEUT % 48.5 % (16.0-70.0); PLATELET COUNT 238 TH/MM3 (150-450); RED BLOOD COUNT 3.98 MIL/MM3 (4.00-5.30); RED CELL DISTRIBUTION WIDTH 14.2 % (11.6-17.2); WHITE BLOOD COUNT 5.2 TH/MM3 (4.0-11.0)
--- NOTE | 2017-07-03 08:20 | PD ---
HPI Chief Complaint: Dizziness Time Seen by Provider: 07:46 Travel History International Travel<30 days: No Contact w/Intl Traveler<30days: No Traveled to known affect area: No History of Present Illness HPI 82yo F with PMH of afib on eliquis and cardizem presents to the ED with c/o generalized weakness and dizziness today. Said she sat up and felt lightheaded so called her and did not fall. She drank some water and then had an episode of vomiting. Denies any nausea now after a dose of zofran by EVAC. Denies any fever, fall, chest pain, sob, abdominal pain, focal weakness or numbness. Pt was admitted 06/06/17-06/09/17 for generalized weakness and bradycardia and was taken off her digoxin and metoprolol and continued her cardizem and amiodarone. Pt's blood pressure was 236/105 when she arrived. Said she last took her HTN medication yesterday. PFSH Past Medical History Hx Anticoagulant Therapy: Yes Arthritis: Yes (lower back) Asthma: No Atrial Fibrillation: Yes Autoimmune Disease: No Blood Disorders: No Anxiety: Yes Depression: Yes Heart Rhythm Problems: Yes (afib) Cancer: Yes (skin, left thigh and nose (removed)) Cardiac Catheterization: No Cardiovascular Problems: Yes High Cholesterol: Yes (controlled) Chemotherapy: No Chest Pain: No Congestive Heart Failure: No COPD: No Cerebrovascular Accident: No Diabetes: No Diminished Hearing: No Endocrine: No Gastrointestinal Disorders: No GERD: No Glaucoma: No Genitourinary: No Headaches: No Hepatitis: No Hiatal Hernia: No Heparin Induced Thrombocytopen: No Hypertension: Yes Immune Disorder: No Implanted Vascular Access Dvce: Yes Kidney Stones: No Musculoskeletal: Yes Neurologic: No Psychiatric: Yes Reproductive: No Respiratory: No Immunizations Current: Yes Migraines: No Myocardial Infarction: No Radiation Therapy: No Renal Failure: No Seizures: No Sickle Cell Disease: No Sleep Apnea: No Thyroid Disease: Yes Ulcer: No PNEUMOCCOCAL Vaccine (Year): 3 ?: Not Menopausal: Yes : 2 Para: 2 Past Surgical History Abdominal Surgery: No AICD: No Appendectomy: No Arteriovenous Shunt: No Cardiac Surgery: Yes (ablation x4) Cholecystectomy: No Coronary Artery Bypass Graft: No Ear Surgery: No Endocrine Surgery: No Eye Surgery: No Genitourinary Surgery: No Gynecologic Surgery: Yes (hysterectomy) Hysterectomy: Yes Insulin Pump: No Joint Replacement: Yes (bilat hip) Neurologic Surgery: No Oral Surgery: No Pacemaker: No Thoracic Surgery: No Other Surgery: Yes (Skin CA removed fro forehead and leg) Family History Family Myocardial Infarction: Yes Social History Alcohol Use: No Tobacco Use: No (quit at 27 years of age) Substance Use: No Allergies-Medications (Allergen,Severity, Reaction): Coded Allergies: Sulfa (Sulfonamide Antibiotics) (Unverified Allergy, Severe, RASH, ) cefaclor (Unverified Allergy, Severe, RASH, 07/03/17) paroxetine (Unverified Allergy, Severe, 07/03/17) ciprofloxacin (Unverified Allergy, Unknown, GI UPSET, 07/03/17) clonidine (Unverified Allergy, Unknown, SKIN IRRITATION, 07/03/17) Uncoded Allergies: latex bandages (Adverse Reaction, Mild, SKIN REDNESS, RASH, 05/11/17) Reported Meds & Prescriptions Reported Meds & Active Scripts Active Levothyroxine (Levothyroxine Sodium) 25 Mcg Tab 25 Mcg PO DAILY@0600 Reported Centrum Silver Adult 50+ (Multiple Vitamins W/ Minerals) 0.4 Mg-300 Mcg-250 Mcg Tab 1 Tab PO DAILY Amiodarone (Amiodarone HCl) 200 Mg Tab 200 Mg PO DAILY Eliquis (Apixaban) 5 Mg Tab 5 Mg PO BID Estradiol Patch 168 HR (Estradiol) 0.025 Mg/24 Hr Patch 1 Patch T-DERMAL Q7D Remove old patch and discard when new patch being placed. Senna Plus 8.6-50 mg (Sennosides-Docusate Sodium) 1 Tab Tab 2 Tab PO DAILY Vitamin D3 (Cholecalciferol) 1,000 Unit Cap 1,000 Units PO DAILY Ramipril 10 Mg Cap 10 Mg PO BID Alprazolam 0.25 Mg Tab 0.25 Mg PO Q6H PRN Review of Systems Except as stated in HPI: all other systems reviewed are Neg Physical Exam Narrative GENERAL: 82yo F in mild distress. SKIN: Focused skin assessment warm/dry. HEAD: Atraumatic. Normocephalic. EYES: Pupils equal and round at 3mm bilaterally. EOMI. ENT: No nasal bleeding or discharge. Mucous membranes pink and moist. NECK: Trachea midline. No JVD. CARDIOVASCULAR: Regular rate and rhythm. No murmur appreciated. RESPIRATORY: No accessory muscle use. Clear to auscultation. Breath sounds equal bilaterally. GASTROINTESTINAL: Abdomen soft, non-tender, nondistended. MUSCULOSKELETAL: No obvious deformities. No clubbing. No cyanosis. No edema. NEUROLOGICAL: Awake and alert. No obvious cranial nerve deficits. Motor grossly within normal limits. Normal speech. PSYCHIATRIC: Appropriate mood and affect; insight and judgment normal. Data Data Last Documented VS Vital Signs Date Time Temp Pulse Resp B/P (MAP) Pulse Ox O2 Delivery O2 Flow Rate FiO2 07/03/17 09:30 60 12 151/72 (98) 94 Room Air 07/03/17 07:44 97.5 Orders Orders Electrocardiogram (07/03/17 07:46) Basic Metabolic Panel (Bmp) (07/03/17 07:46) Complete Blood Count With Diff (07/03/17 07:46) Magnesium (Mg) (07/03/17 07:46) Troponin I (07/03/17 07:46) Act Partial Throm Time (Ptt) (07/03/17 07:46) Prothrombin Time / Inr (Pt) (07/03/17 07:46) Urinalysis - C+S If Indicated (07/03/17 07:46) Ct Brain W/O Iv Contrast(Rout) (07/03/17 07:46) Blood Glucose (07/03/17 07:46) Orthostatic Vital Signs (07/03/17 07:46) Hydralazine Inj (Apresoline Inj) (07/03/17 08:00) Ondansetron Inj (Zofran Inj) (07/03/17 09:00) Potassium Chloride (Kcl) (07/03/17 09:00) Metoclopramide Inj (Reglan Inj) (07/03/17 09:45) Potassium Chlor 20 Meq Premix (Kcl 20 Me (07/03/17 10:00) Labs Laboratory Tests Test 07/03/17 08:00 White Blood Count 5.2 TH/MM3 Red Blood Count 3.98 MIL/MM3 Hemoglobin 12.8 GM/DL Hematocrit 37.0 % Mean Corpuscular Volume 93.0 FL Mean Corpuscular Hemoglobin 32.2 PG Mean Corpuscular Hemoglobin Concent 34.6 % Red Cell Distribution Width 14.2 % Platelet Count 238 TH/MM3 Mean Platelet Volume 7.8 FL Neutrophils (%) (Auto) 48.5 % Lymphocytes (%) (Auto) 34.8 % Monocytes (%) (Auto) 11.1 % Eosinophils (%) (Auto) 4.8 % Basophils (%) (Auto) 0.8 % Neutrophils # (Auto) 2.5 TH/MM3 Lymphocytes # (Auto) 1.8 TH/MM3 Monocytes # (Auto) 0.6 TH/MM3 Eosinophils # (Auto) 0.3 TH/MM3 Basophils # (Auto) 0.0 TH/MM3 CBC Comment DIFF FINAL Differential Comment Prothrombin Time 10.7 SEC Prothromb Time International Ratio 1.1 RATIO Activated Partial Thromboplast Time 29.2 SEC Blood Urea Nitrogen 12 MG/DL Creatinine 1.07 MG/DL Random Glucose 122 MG/DL Calcium Level 8.9 MG/DL Magnesium Level 2.2 MG/DL Sodium Level 137 MEQ/L Potassium Level 3.2 MEQ/L Chloride Level 104 MEQ/L Carbon Dioxide Level 24.4 MEQ/L Anion Gap 9 MEQ/L Estimat Glomerular Filtration Rate 49 ML/MIN Troponin I LESS THAN 0.02 NG/ML MDM Medical Decision Making Medical Screen Exam Complete: Yes Emergency Medical Condition: Yes Interpretation(s) EKG: NSR 74bpm. Normal axis. TW flattening diffusely. QTc 450ms. Differential Diagnosis Hypertensive emergency vs. electrolyte abnormality vs. dehydration Narrative Course 82yo F with c/o generalized weakness today. Pt was nauseous and had an episode of vomiting. She was given zofran by [facility]. Pt had markedly elevated blood pressure on arrival at 236/105. Pt given hydralazine 10mg IV and BP is now 177/ 86. Pt is now nauseous so zofran ordered. Labs reviewed, no leukocytosis. H/ H normal. Mild hypokalemia at 3.2, ordered PO KCl. Troponin negative. CT brain showed bifrontal cerebral atrophy. Mild periventricular and subcortical white matter small vessel ischemic changes bilaterally. Scattered old lacunar infarcts. No acute infarct, acute hemorrhage, mass effect or extra-axial fluid collections. Pt reevaluated at bedside and vomited after zofran. This is her second dose of zofran. Pt reevaluated at bedside and still nauseous, reglan ordered. Pt still feels very weak and nauseous and not able to tolerate PO. Pt unable to take PO potassium so will change to IV KCl. Will admit for intractable nausea. Diagnosis Primary Impression: Intractable nausea and vomiting Qualified Codes: R11.2 - Nausea with vomiting, unspecified Admitting Information Admitting Physician Requests: Gardenia March DO Jul 03, 2017 08:20
[2017-07-03 08:27] LABS: APTT (PATIENT) 29.2 SEC (24.3-30.1); INTERNATIONAL NORMALIZED RATIO 1.1 RATIO; PROTHROMBIN TIME - PATIENT 10.7 SEC (9.8-11.6)
--- NOTE | 2017-07-03 08:33 | RADRPT ---
EXAM DATE/TIME: 07/03/2017 08:11 [facility] COMPARISON: No previous studies available for comparison. INDICATIONS : Dizziness. RADIATION DOSE: 30.86 CTDIvol (mGy) MEDICAL HISTORY : Cardiovascular disease. Hypertension. SURGICAL HISTORY : Hysterectomy. ENCOUNTER: Initial ACUITY: 1 day PAIN SCALE: 0/10 LOCATION: cranial TECHNIQUE: Multiple contiguous axial images were obtained of the head. Using automated exposure control and adj ustment of the mA and/or kV according to patient size, radiation dose was kept as low as reasonably a chievable to obtain optimal diagnostic quality images. DICOM format image data is available electro nically for review and comparison. FINDINGS: CEREBRUM: Bifrontal cerebral atrophy is noted. Mild periventricular and subcortical white matter small vessel i schemic changes are noted bilaterally. Scattered old tiny lacunar infarcts are noted within the bilat eral basal ganglia. No evidence of midline shift, mass lesion, hemorrhage or acute infarction. No ex tra-axial fluid collections are seen. POSTERIOR FOSSA: The cerebellum and brainstem are intact. The 4th ventricle is midline. The cerebellopontine angle i s unremarkable. EXTRACRANIAL: The visualized portion of the orbits is intact. SKULL: The calvaria is intact. No evidence of skull fracture. CONCLUSION: 1. Bifrontal cerebral atrophy. 2. Mild periventricular and subcortical white matter small vessel ischemic changes bilaterally. 3. Scattered old tiny lacunar infarcts within the bilateral basal ganglia. 4. No acute infarct, acute hemorrhage, mass effect or extra-axial fluid collections. Oracio Addison MD on July 03, 2017 at 8:29 Board Certified Radiologist. This report was verified electronically.
[2017-07-03 08:35] LABS: ANION GAP 9 MEQ/L (5-15); BICARBONATE 24.4 MEQ/L (21.0-32.0); BLOOD UREA NITROGEN 12 MG/DL (7-18); CHLORIDE 104 MEQ/L (98-107); GLOMERULAR FILTRATION RATE 49 ML/MIN (>89); MAGNESIUM 2.2 MG/DL (1.5-2.5); POTASSIUM 3.2 MEQ/L (3.5-5.1); SODIUM (NA) 137 MEQ/L (136-145)
[2017-07-03] MEDS ORDERED: ONDANSETRON HCL 4 MG/2 ML VIAL IV PUSH ONE (09:00)
[2017-07-03] MEDS ORDERED: POTASSIUM CHLORIDE 20 MEQ CONTROLLED RELEASE TAB PO ONE (09:00)
[2017-07-03] MEDS ORDERED: METOCLOPRAMIDE INJ 10 MG in SODIUM CHLORIDE 0.9% INJ 50 ML IV ONE (09:45)
[2017-07-03] MEDS ORDERED: POTASSIUM CHLOR 20 MEQ PREMIX 100 ML IV ONE (10:00)
[2017-07-03] MEDS ORDERED: SODIUM CHLORIDE 0.9% FLUSH 10 ML FLUSH IV FLUSH PRN (10:15)
[2017-07-03] MEDS ORDERED: MAGNESIUM HYDROXIDE SUSP 30 ML CUP PO PRN (10:15)
[2017-07-03] MEDS ORDERED: NALOXONE HCL 0.4 MG/ML AMP IV PUSH PRN (10:15)
[2017-07-03] MEDS ORDERED: ONDANSETRON HCL 4 MG/2 ML VIAL IVP PRN (10:15)
[2017-07-03] MEDS ORDERED: ALPRAZolam 0.25 MG TAB PO ONE (11:00)
[2017-07-03] MEDS: SODIUM CHLOR 0.9% 1000 ML INJ 1,000 ML IV SCH ×2 (11:56→21:48)
[2017-07-03] MEDS ORDERED: METO25TA3 PO (11:56)
--- NOTE | 2017-07-03 12:27 | HHI.HP ---
[facility] Champ Reyes MD Admission Diagnosis Intractable vomiting, hypokalemia Diagnoses: (1) Intractable nausea and vomiting (2) Hypokalemia Chief Complaint: Nausea and emesis Travel History International Travel<30 Days: No Contact w/Intl Traveler <30 Da: No Traveled to Known Affected Are: No History of Present Illness 82-year-old female with a history of atrial fibrillation on chronic oral anticoagulation, hypertension, presented to the ED for evaluation of an acute onset of emesis described by nonbilious started early this morning after patient took Synthroid more associated with nausea times several weeks duration along with headaches. Patient states, she has been feeling nauseated over the past several weeks since her last cardiac ablation however has had no emesis until this morning. She also complained of non-throbbing headaches without any photophobia 2 days duration, which improved some bowel yesterday with tramadol. She denies any sick contact. She also denies any diarrhea. She has no chest pain. She is currently afebrile. When patient presented to the ED she had elevated BP, and reported that over the past few weeks her blood pressure has been consistently elevated. Review of Systems Except as stated in HPI: all other systems reviewed are Neg Past Family Social History Past Medical History Hypertension Atrial fibrillation Chronic Kidney Disease Hypothyroidism Basal cell on legs Past Surgical History Ablations x 4 Hysterectomy at age 52 y/o Biopsy of leg lesions Hip surgeries Allergies: Coded Allergies: Sulfa (Sulfonamide Antibiotics) (Unverified Allergy, Severe, RASH, ) cefaclor (Unverified Allergy, Severe, RASH, 07/03/17) paroxetine (Unverified Allergy, Severe, 07/03/17) ciprofloxacin (Unverified Allergy, Unknown, GI UPSET, 07/03/17) clonidine (Unverified Allergy, Unknown, SKIN IRRITATION, 07/03/17) Uncoded Allergies: latex bandages (Adverse Reaction, Mild, SKIN REDNESS, RASH, 05/11/17) Family History Reports diabetes and heart disease in family Social History Smokes until in her twenties however no longer smoking.She denies any alcohol or illicit drug use Physical Exam Vital Signs Vital Signs Date Time Temp Pulse Resp B/P (MAP) Pulse Ox O2 Delivery O2 Flow Rate FiO2 07/03/17 11:33 60 187/86 (119) 95 07/03/17 11:30 07/03/17 11:27 97.1 70 20 190/84 (119) 97 07/03/17 10:00 65 12 170/79 (109) 97 Room Air 07/03/17 09:30 60 12 151/72 (98) 94 Room Air 07/03/17 09:01 76 22 166/81 (109) 92 Room Air 07/03/17 08:40 64 17 177/86 (116) 94 Room Air 07/03/17 08:23 73 11 184/96 (125) 95 Room Air 07/03/17 08:06 75 14 196/96 (129) 93 07/03/17 07:54 73 13 197/106 (136) 73 12 196/102 (133) 75 12 195/112 (139) 07/03/17 07:44 97.5 74 14 236/105 (148) 93 Physical Exam GENERAL: This is a well-nourished, well-developed patient, in no apparent distress. SKIN: No rashes, ecchymoses or lesions. Cool and dry. HEAD: Atraumatic. Normocephalic. No temporal or scalp tenderness. EYES: Pupils equal round and reactive. Extraocular motions intact. No scleral icterus. No injection or drainage. ENT: Nose without bleeding, purulent drainage or septal hematoma. Throat without erythema, tonsillar hypertrophy or exudate. Uvula midline. Airway patent. NECK: Trachea midline. No JVD or lymphadenopathy. Supple, nontender, no meningeal signs. CARDIOVASCULAR: Irregular Regular rate and rhythm without murmurs, gallops, or rubs. RESPIRATORY: Clear to auscultation. Breath sounds equal bilaterally. No wheezes , rales, or rhonchi. GASTROINTESTINAL: Abdomen soft, non-tender, nondistended. No hepato-splenomegaly , or palpable masses. No guarding. MUSCULOSKELETAL: Extremities without clubbing, cyanosis, or edema. No joint tenderness, effusion, or edema noted. No calf tenderness. Negative Homans sign bilaterally. NEUROLOGICAL: Awake and alert. Cranial nerves II through XII intact. Motor and sensory grossly within normal limits. Five out of 5 muscle strength in all muscle groups. Normal speech. Laboratory Laboratory Tests Test 07/03/17 08:00 White Blood Count 5.2 Red Blood Count 3.98 Hemoglobin 12.8 Hematocrit 37.0 Mean Corpuscular Volume 93.0 Mean Corpuscular Hemoglobin 32.2 Mean Corpuscular Hemoglobin Concent 34.6 Red Cell Distribution Width 14.2 Platelet Count 238 Mean Platelet Volume 7.8 Neutrophils (%) (Auto) 48.5 Lymphocytes (%) (Auto) 34.8 Monocytes (%) (Auto) 11.1 Eosinophils (%) (Auto) 4.8 Basophils (%) (Auto) 0.8 Neutrophils # (Auto) 2.5 Lymphocytes # (Auto) 1.8 Monocytes # (Auto) 0.6 Eosinophils # (Auto) 0.3 Basophils # (Auto) 0.0 CBC Comment DIFF FINAL Differential Comment Prothrombin Time 10.7 Prothromb Time International Ratio 1.1 Activated Partial Thromboplast Time 29.2 Blood Urea Nitrogen 12 Creatinine 1.07 Random Glucose 122 Calcium Level 8.9 Magnesium Level 2.2 Sodium Level 137 Potassium Level 3.2 Chloride Level 104 Carbon Dioxide Level 24.4 Anion Gap 9 Estimat Glomerular Filtration Rate 49 Troponin I LESS THAN 0.02 Result Diagram: 07/03/17 0800 07/03/17 0800 Imaging Last Impressions Head CT 07/03/17 0746 Signed Impressions: Service Date/Time: Monday, July 03, 2017 08:11 - CONCLUSION: 1. Bifrontal cerebral atrophy. 2. Mild periventricular and subcortical white matter small vessel ischemic changes bilaterally. 3. Scattered old tiny lacunar infarcts within the bilateral basal ganglia. 4. No acute infarct, acute hemorrhage, mass effect or extra-axial fluid collections. Oracio Addison MD Caprini VTE Risk Assessment Caprini VTE Risk Assessment: Mod/High Risk (score >= 2) Caprini Risk Assessment Model Point Value = 1 Point Value = 2 Point Value = 3 Point Value = 5 Age 41-60 Minor surgery BMI > 25 kg/m2 Swollen legs Varicose veins or History of unexplained or recurrent spontaneous Oral contraceptives or hormone replacement Sepsis (< 1 month) Serious lung disease, including pneumonia (< 1 month) Abnormal pulmonary function Acute myocardial infarction Congestive heart failure (< 1 month) History of inflammatory bowel disease Medical patient at bed rest Age 61-74 Arthroscopic surgery Major open surgery (> 45 min) Laparoscopic surgery (> 45 min) Malignancy Confined to bed (> 72 hours) Immobilizing plaster cast Central venous access Age >= 75 History of VTE Family history of VTE Factor V Leiden Prothrombin [id number] Lupus anticoagulant Anticardiolipin antibodies Elevated serum homocysteine Heparin-induced thrombocytopenia Other congenital or acquired thrombophilia Stroke (< 1 month) Elective arthroplasty Hip, pelvis, or leg fracture Acute spinal cord injury (< 1 month) Prophylaxis Regimen Total Risk Factor Score Risk Level Prophylaxis Regimen 0-1 Low Early ambulation 2 Moderate Order ONE of the following: *Sequential Compression Device (SCD) *Heparin 5000 units SQ BID 3-4 Higher Order ONE of the following medications: *Heparin 5000 units SQ TID *Enoxaparin/Lovenox 40 mg SQ daily (WT < 150 kg, CrCl > 30 mL/min) *Enoxaparin/Lovenox 30 mg SQ daily (WT < 150 kg, CrCl > 10-29 mL/min) *Enoxaparin/Lovenox 30 mg SQ BID (WT < 150 kg, CrCl > 30 mL/min) AND/OR *Sequential Compression Device (SCD) 5 or more Highest Order ONE of the following medications: *Heparin 5000 units SQ TID (Preferred with Epidurals) *Enoxaparin/Lovenox 40 mg SQ daily (WT < 150 kg, CrCl > 30 mL/min) *Enoxaparin/Lovenox 30 mg SQ daily (WT < 150 kg, CrCl > 10-29 mL/min) *Enoxaparin/Lovenox 30 mg SQ BID (WT < 150 kg, CrCl > 30 mL/min) AND *Sequential Compression Device (SCD) Assessment and Plan Problem List: (1) Intractable nausea and vomiting ICD Code: R11.2 - Nausea with vomiting, unspecified Status: Resolved (2) Hypokalemia ICD Code: E87.6 - Hypokalemia Status: Acute (3) HTN (hypertension) ICD Code: I10 - Essential (primary) hypertension Status: Acute (4) Hypothyroid ICD Code: E03.9 - Hypothyroidism, unspecified Assessment and Plan 82-year-old female with Intractable nausea and vomiting Head CT noted and review without any intracranial abnormalities Patient denies any diarrhea Conservative treatment with IV fluid resuscitation, antiemetic Start Clear liquid and advance diet as tolerated Headache Secondary to labile BP versus intractable nausea and vomiting Head CT noted in review by me without any intracranial abnormalities Continue with aggressive IV fluid resuscitation Tylenol when necessary Achieve blood pressure control Labile benign hypertension Resume outpatient medications including lisinopril and Lopressor Hydralazine when necessary Hypokalemia From GI loss, replace accordingly and monitor electrolyte History of atrial fibrillation Resume Eliquis, amiodarone, and beta ramesh Telemetry monitoring Other chronic medical conditions Resume outpatient medications DVT prophylaxis: Eliquis Code Status Full code Discussed Condition With Patient, ED physician Problem Qualifiers (1) Intractable nausea and vomiting: Qualified Codes: R11.2 - Nausea with vomiting, unspecified Blake Graham MD Jul 03, 2017 12:26
[2017-07-03 14:03] LABS: BLOOD, URINE NEG (NEG); GLUCOSE,URINE NEG (NEG); KETONE, URINE TRACE mg/dL (NEG); NITRITE,URINE NEG (NEG); SQUAMOUS EPITHELIAL CELL URINE 1 /hpf (0-5); URINE COLOR LIGHT-YELLOW (YELLW/STRAW)
[2017-07-03 14:05] LABS: COMMENT (UR) CULT NOT INDICATED; CULTURE IF INDICATED CULT NOT INDICATED
[2017-07-03] MEDS: RAMIPRIL 5 MG CAP PO SCH ×2 (14:07→21:53)
[2017-07-03] MEDS: AMIODARONE 200 MG TAB PO SCH (14:08)
[2017-07-03] MEDS: METOPROLOL TARTRATE 25 MG TAB PO SCH ×2 (14:08→21:51)
--- NOTE | 2017-07-03 15:49 | EKG ---
Date Performed: 07/03/2017 Time Performed: 07:51:11 PTAGE: 82 years EKG: Sinus rhythm , NONSPECIFIC ST & T-WAVE ABNORMALITY, BORDERLINE ECG PREVIOUS TRACING : 06/06/2017 10.23 Compared to previous tracing, sinus rhythm has replaced pos sible junctional rhythm, heart rate has increased. DOCTOR: Price Hinson Interpretating Date/Time 07/03/2017 15:48:24
[2017-07-03] MEDS: hydrALAZINE HCL 25 MG TAB PO PRN (20:08)
[2017-07-03] MEDS: SODIUM CHLORIDE 0.9% FLUSH 10 ML FLUSH IV FLUSH SCH (21:00)
[2017-07-03] MEDS: APIXABAN 5 MG TABLET PO SCH (21:51)
[2017-07-03] MEDS: ALPRAZolam 0.25 MG TAB PO PRN (21:54)
[2017-07-03] MEDS: ACETAMINOPHEN 325 MG TAB PO PRN (21:54)
[2017-07-04] VITALS (13 sets, daily range): BP systolic 140–198; BP diastolic 80–86; PULSE 60–74; RESP 17–20; TEMP 96.7–98.1; O2SAT 93–97
[2017-07-04] MEDS: hydrALAZINE HCL 25 MG TAB PO PRN ×2 (04:26→14:24)
[2017-07-04] MEDS: LEVOTHYROXINE SODIUM 25 MCG TAB PO SCH (05:18)
[2017-07-04] MEDS: SODIUM CHLOR 0.9% 1000 ML INJ 1,000 ML IV SCH ×2 (06:32→16:32)
[2017-07-04] MEDS: RAMIPRIL 5 MG CAP PO SCH ×2 (08:52→20:48)
[2017-07-04] MEDS: SODIUM CHLORIDE 0.9% FLUSH 10 ML FLUSH IV FLUSH SCH ×2 (08:52→20:49)
[2017-07-04] MEDS: APIXABAN 5 MG TABLET PO SCH ×2 (08:52→20:47)
[2017-07-04] MEDS: METOPROLOL TARTRATE 25 MG TAB PO SCH ×2 (08:52→20:48)
[2017-07-04] MEDS: AMIODARONE 200 MG TAB PO SCH (08:52)
[2017-07-04] MEDS: ACETAMINOPHEN 325 MG TAB PO PRN (08:55)
[2017-07-04] MEDS: ALPRAZolam 0.25 MG TAB PO PRN ×3 (08:55→21:37)
[2017-07-04] MEDS ORDERED: RAMI10CA PO (11:25)
[2017-07-04] MEDS: ACETAMIN 325 MG/BUTALBITAL 50 MG/CAFFEINE 40 MG TAB PO PRN ×2 (11:37→20:48)
--- NOTE | 2017-07-04 11:37 | HHI.PR ---
Subjective Remarks Follow-up for headache and intractable emesis Patient denied any nausea or vomiting, her is at the bedside and stated that she did have nausea this morning and that she is a very poor historian so he usually gives history. She stated the headache is new and has been intermittent. She noticed symptoms association with her blood pressure. Her blood pressure medication has been changed multiple times by Dr. Rincon and that has been controlled per blood pressure has not been controlled. She denies any abdominal pain or diarrhea or constipation. Objective Vitals Vital Signs Date Time Temp Pulse Resp B/P (MAP) Pulse Ox O2 Delivery O2 Flow Rate FiO2 07/04/17 08:14 74 07/04/17 08:12 96.7 74 20 182/86 (118) 95 07/04/17 04:18 97.9 66 17 173/82 (112) 96 07/04/17 04:11 63 07/04/17 00:27 98.1 63 17 165/80 (108) 93 07/04/17 00:00 60 07/03/17 22:00 86 07/03/17 20:00 73 07/03/17 19:13 68 20 186/86 (119) 88 186/86 (119) 07/03/17 14:58 186/73 (110) 07/03/17 12:44 174/82 (112) I/O 07/03/17 07/03/17 07/03/17 07/04/17 07/04/17 07/04/17 07:00 15:00 23:00 07:00 15:00 23:00 Output Total 300 ml Balance -300 ml Output Urine Total 300 ml Result Diagram: 07/03/17 0800 07/03/17 0800 Objective Remarks GENERAL: in NAD CARDIOVASCULAR: Regular rate and rhythm without murmurs, gallops, or rubs. RESPIRATORY: Breath sounds equal bilaterally. No accessory muscle use. GASTROINTESTINAL: Abdomen soft, non-tender, nondistended. MUSCULOSKELETAL: No cyanosis, or edema. BACK: Nontender without obvious deformity. No CVA tenderness. NEURO: AAO X 4. Cranial nerves II-12 intact. Coordination is intact. Sensation and motor grossly intact. Medications and IVs Current Medications Hydralazine HCl (Apresoline Inj) 10 mg ONCE ONCE IV PUSH Last administered on 07/03/17t 08:01; Start 07/03/17 at 08:00; Stop 07/03/17 at 08:01; Status DC Ondansetron HCl (Zofran Inj) 4 mg ONCE ONCE IV PUSH Last administered on 07/03 08:56; Start 07/03/17 at 09:00; Stop 07/03/17 at 09:01; Status DC Potassium Chloride (KCl) 40 meq ONCE ONCE PO ; Start 07/03/17 at 09:00; Stop 07/03/17 at 09:47; Status DC Metoclopramide HCl 10 mg/Sodium Chloride 52 ml @ 104 mls/hr ONCE ONCE IV Last administered on 07/03/17 10:08; Start 07/03/17 at 09:45; Stop 07/03/17 at 10:14; Status DC Potassium Chloride 100 ml @ 50 mls/hr ONCE ONCE IV Last administered on 07/03 10:55; Start 07/03/17 at 10:00; Stop 07/03/17 at 11:59; Status DC Sodium Chloride 1,000 ml @ 100 mls/hr Q10H IV Last administered on 07/04/17 06:32; Start 07/03/17 at 11:00 Sodium Chloride (NS Flush) 2 ml UNSCH PRN IV FLUSH FLUSH AFTER USING IV ACCESS ; Start 07/03/17 at 10:15 Sodium Chloride (NS Flush) 2 ml BID IV FLUSH ; Start 07/03/17 at 21:00 Ondansetron HCl (Zofran Inj) 4 mg Q6H PRN IVP NAUSEA OR VOMITING; Start at 10:15 Acetaminophen (Tylenol) 650 mg Q6H PRN PO PAIN SCALE 1 TO 2 Last administered on 07/04/17 08:55; Start 07/03/17 at 10:15 Naloxone HCl (Narcan Inj) 0.4 mg UNSCH PRN IV PUSH SEE LABEL COMMENTS; Start 07/03/17 at 10:15 Magnesium Hydroxide (Milk Of Magnesia Liq) 30 ml Q12H PRN PO Mild constipation ; Start 07/03/17 at 10:15 Alprazolam (Xanax) 0.25 mg ONCE ONCE PO Last administered on 07/03/17 11:55 ; Start 07/03/17 at 11:00; Stop 07/03/17 at 11:01; Status DC Alprazolam (Xanax) 0.25 mg Q6H PRN PO ANXIETY Last administered on 07/04/17 08:55; Start 07/03/17 at 12:30 Amiodarone HCl (Cordarone) 200 mg DAILY PO Last administered on 07/04/17 08: 52; Start 07/03/17 at 12:30 Apixaban (Eliquis) 5 mg BID PO Last administered on 07/04/17 08:52; Start at 21:00 Levothyroxine Sodium (Synthroid) 25 mcg DAILY@0600 PO Last administered on 05:18; Start 07/04/17 at 06:00 Metoprolol Tartrate (Lopressor) 25 mg BID PO Last administered on 07/04/17 08 :52; Start 07/03/17 at 12:30 Ramipril (Altace) 10 mg BID PO Last administered on 07/04/17 08:52; Start at 12:30 Hydralazine HCl (Apresoline) 25 mg Q8HR PRN PO SBP>160, DBP>90 Last administered on 07/04/17 04:26; Start 07/03/17 at 12:45 Acetaminophen/ Butalbital/ Caffeine (Fioricet 325-50-40) 1 tab Q8H PRN PO headache; Start 07/04/17 at 11:15 A/P Problem List: (1) Intractable nausea and vomiting ICD Code: R11.2 - Nausea with vomiting, unspecified Status: Resolved (2) Hypokalemia ICD Code: E87.6 - Hypokalemia Status: Acute (3) HTN (hypertension) ICD Code: I10 - Essential (primary) hypertension Status: Acute (4) Hypothyroid ICD Code: E03.9 - Hypothyroidism, unspecified Assessment and Plan 82-year-old female with Intractable nausea and vomiting Seemed to occur after the ablation. Unsure if this is related to her labile blood pressure versus effect of medication. She is a historian so hard to determine. Head CT noted and review without any intracranial abnormalities. Labs reviewed which are relatively stable. with supportive care with antiemetics and IV fluids. Headache, intermittent Secondary to labile BP versus intractable nausea and vomiting Head CT noted in review by me without any intracranial abnormalities This is a new type of headache will get an MRI of the brain, no urgent signs noted since this has been intermittent and pain resolves on its own. Continue with aggressive IV fluid resuscitation Pain not controlled with Tylenol. Will try Fioricet. Labile benign hypertension Home medication resumed but patient continues to have labile blood pressure and uncontrolled blood pressure. Will add amlodipine. Will consult her senior radiation protection technician to assist. Hydralazine when necessary Hypokalemia From GI loss, replace accordingly and monitor electrolyte History of atrial fibrillation on Eliquis, amiodarone, and beta ramesh Telemetry monitoring Other chronic medical conditions Resume outpatient medications DVT prophylaxis: Eliquis Problem Qualifiers (1) Intractable nausea and vomiting: Qualified Codes: R11.2 - Nausea with vomiting, unspecified Catherine Fagan MD Jul 04, 2017 11:37
[2017-07-04] MEDS ORDERED: amLODIPine BESYLATE 5 MG TAB PO SCH (12:00)
--- NOTE | 2017-07-04 13:00 | MB ---
cc: CHELLY LOGAN,TOM Titus MD DATE OF CONSULTATION: 07/04/2017 REASON FOR CONSULTATION: History of multiple atrial fibrillation ablations, headache, nausea, vomiting. HISTORY OF PRESENT ILLNESS: The patient is an 82-year-old white female, followed in our office by Dr. Tom Rincon with a history of paroxysmal atrial fibrillation, status post four ablations, the last one April 2017, history of hypertension, who presented to the hospital with complaints of nausea and vomiting. She states she has had a headache ever since her last ablation. The headache originates posterior to her right ear and radiates to the top of her head. The patient reports that headaches are unusual for her. Over the patient two weeks she had felt mild to moderately nauseated. She had not had any vomiting until the day of admission. On the day of admission she also felt lightheaded although without syncope or near-syncope. The patient denies chest pain, shortness of breath, paroxysmal nocturnal dyspnea, pedal edema, fevers. Since her last ablation, she has had three very brief episodes of fluttering palpitations. None of her medications are new according to the patient. She has been on amiodarone chronically. PAST MEDICAL HISTORY: 1. Paroxysmal atrial fibrillation status post four ablations, the last one 04/20/2017. 2. Hypertension. 3. Hypothyroidism. PAST SURGICAL HISTORY 1. Hysterectomy. 2. Hip surgeries. CARDIAC MEDICATIONS AT HOME: 1. Ramipril 10 mg b.i.d. 2. Eliquis 5 mg b.i.d. 3. Amiodarone 200 mg daily. ALLERGIES SULFA, CEFACHLOR, PEROXITIME, CIPRO, CLONIDINE FAMILY HISTORY: Noncontributory. SOCIAL HISTORY: The patient quit smoking at age 27. She denies alcohol abuse. REVIEW OF SYSTEMS: As in the history of present illness, otherwise negative or noncontributory. She also denies visual changes, unilateral weakness or numbness, diarrhea, bright red blood per rectum, melena, dyspepsia. PHYSICAL EXAMINATION: On physical examination her blood pressure 182/86 with a pulse of 74, respirations 20. GENERAL: Well-developed, well-nourished white female in no acute distress. HEENT: Jugular venous pressure is normal. Carotid pulses are 2+ bilaterally and without bruits. Chest: Examination of the chest reveals clear lung burton. Cardiac: She has a regular rhythm and rate with a grade 1/6 systolic murmur heard at the lower left sternal border. No gallop is audible. ABDOMEN: She has a soft, nontender abdomen. Bowel sounds are present. There is no definite hepatosplenomegaly. EXTREMITIES: Examination of the extremities reveals no clubbing, cyanosis or edema. LABORATORY DATA Includes normal CBC, potassium 3.2, BUN 12, creatinine 1.07, magnesium 2.2, troponin less than 0.02, INR 1.1. EKG shows sinus rhythm, nonspecific ST and T-wave abnormality. IMPRESSION Probably overall stable cardiac status in this 82-year-old white female with a history of paroxysmal atrial fibrillation status post a number of ablations, the last one April 2017, history of hypertension, now admitted with nausea, vomiting, headache. Overall I doubt her symptoms are cardiac in origin. She states she has been on amiodarone chronically. There is no definite evidence for acute coronary syndrome. She remains in sinus rhythm. Reportedly no acute hemorrhage is seen on head CT. RECOMMENDATIONS 1. No specific recommendations at this point from a cardiac standpoint except continuing her usual home cardiac medications. Agree with adding amlodipine for better blood pressure control. 2. Dr. Rincon will follow up as needed. MD NICK Mcleod/DENIZ /12:05 PM /12:45 PM MI
[2017-07-04 13:47] LABS: AUTOMATED NEUTROPHIL # 5.7 TH/MM3 (1.8-7.7); BASOPHIL # 0.1 TH/MM3 (0-0.2); BASOPHIL % 0.7 % (0.0-2.0); EOSINOPHIL # 0.2 TH/MM3 (0-0.4); EOSINOPHIL % 1.9 % (0.0-4.0); HEMATOCRIT 34.9 % (35.0-46.0); HEMO FLAGS DIFF FINAL; LYMPH % 15.4 % (9.0-44.0); LYMPHOCYTE # 1.2 TH/MM3 (1.0-4.8); MEAN CELL VOLUME 92.9 FL (80.0-100.0); MEAN CORPUSCULAR HEMOGLOBIN 32.5 PG (27.0-34.0); MEAN CORPUSCULAR HGB CONC 35.1 % (32.0-36.0); PLATELET COUNT 217 TH/MM3 (150-450); RED BLOOD COUNT 3.76 MIL/MM3 (4.00-5.30); WHITE BLOOD COUNT 7.9 TH/MM3 (4.0-11.0)
--- NOTE | 2017-07-04 19:00 | RADRPT ---
EXAM DATE/TIME: 07/04/2017 18:14 [facility] COMPARISON: No previous studies available for comparison. INDICATIONS : Dizziness. MEDICAL HISTORY : Hypertension. SURGICAL HISTORY : Hysterectomy. Bilateral femur ENCOUNTER: Initial ACUITY: 1 day PAIN SCORE: 0/10 LOCATION: cranial TECHNIQUE: Multiplanar, multisequence MRI of the brain was performed without contrast. FINDINGS: CEREBRUM: The ventricles and cortical sulci are widened. There is expansion of the extra-axial spaces. There a re focal and confluent areas of increased signal seen throughout the cerebral white matter. There are dilated perivascular seen in the basal ganglia. No evidence of midline shift, mass lesion, hemorrhag e or acute infarction. No focal extraaxial fluid collections are seen. The pituitary gland and supr asellar cistern are normal in configuration. WHITE MATTER: No significant signal abnormalities are seen in the white matter. POSTERIOR FOSSA: The cerebellum and brainstem are intact. The 4th ventricle is midline. The cerebellopontine angle is unremarkable. The cerebellar tonsils are normal in position. DIFFUSION IMAGING: No focal areas of restricted diffusion are seen. No evidence of acute infarction. EXTRACRANIAL: The visualized portions of the orbits and paranasal sinuses are unremarkable. CONCLUSION: 1. No acute abnormality is seen. 2. Atrophy. 3. Suspected small vessel ischemic change in the white matter. Lyndon Monroy MD on July 04, 2017 at 18:56 Board Certified Radiologist. This report was verified electronically.
[2017-07-04 19:16] LABS: ALT (GPT) 27 U/L (10-53); ANION GAP 10 MEQ/L (5-15); AST (GOT) 20 U/L (15-37); BICARBONATE 20.6 MEQ/L (21.0-32.0); BLOOD UREA NITROGEN 5 MG/DL (7-18); CHLORIDE 108 MEQ/L (98-107); GLOMERULAR FILTRATION RATE 68 ML/MIN (>89); MAGNESIUM 1.9 MG/DL (1.5-2.5); SODIUM (NA) 139 MEQ/L (136-145)
[2017-07-04 19:26] LABS: ALKALINE PHOSPHATASE 86 U/L (45-117); TOTAL BILIRUBIN ADULT 0.9 MG/DL (0.2-1.0)
[2017-07-04] MEDS ORDERED: amLODIPine BESYLATE 5 MG TAB PO ONE (20:30)
[2017-07-05 00:15] VITALS: PULSE 64
[2017-07-05 03:05] VITALS: BP_SYST 135; BP_SYST 169; BP_DIAS 75; BP_DIAS 77; PULSE 71; RESP 18; TEMP 97.9; O2SAT 98
[2017-07-05] MEDS: hydrALAZINE HCL 25 MG TAB PO PRN (03:24)
[2017-07-05] MEDS: SODIUM CHLOR 0.9% 1000 ML INJ 1,000 ML IV SCH (03:26)
[2017-07-05 03:30] VITALS: BP 169/77; PULSE 71; RESP 18; TEMP 97.9; O2SAT 98
[2017-07-05 03:45] VITALS: PULSE 68
[2017-07-05 05:31] LABS: MEAN CELL VOLUME 92.8 FL (80.0-100.0); MEAN CORPUSCULAR HEMOGLOBIN 32.4 PG (27.0-34.0); MEAN CORPUSCULAR HGB CONC 34.9 % (32.0-36.0); PLATELET COUNT 229 TH/MM3 (150-450); RED BLOOD COUNT 3.77 MIL/MM3 (4.00-5.30); RED CELL DISTRIBUTION WIDTH 13.9 % (11.6-17.2); REVIEW FLAG FINAL; WHITE BLOOD COUNT 6.1 TH/MM3 (4.0-11.0)
[2017-07-05] MEDS: LEVOTHYROXINE SODIUM 25 MCG TAB PO SCH (05:32)
[2017-07-05 05:52] LABS: BICARBONATE 21.3 MEQ/L (21.0-32.0)
[2017-07-05 08:05] VITALS: BP 155/74; PULSE 74; RESP 16; TEMP 97.8; O2SAT 95
[2017-07-05] MEDS: SODIUM CHLORIDE 0.9% FLUSH 10 ML FLUSH IV FLUSH SCH (09:00)
[2017-07-05] MEDS ORDERED: POTASSIUM CHLORIDE 25 MEQ EFFERVESCENT TAB PO ONE (09:00)
[2017-07-05] MEDS ORDERED: Acet-Butal-Caff 325-50-40 Mg PO (09:08)
[2017-07-05] MEDS ORDERED: AMLO10 PO (09:08)
[2017-07-05] MEDS ORDERED: POTA-163 PO (09:09)
--- NOTE | 2017-07-05 09:11 | HHI.DS ---
Discharge Summary Admission Date Jul 03, 2017 at 10:15 Discharge Date: Jul 05, 2017 Admitting Diagnosis Intractable vomiting, hypokalemia (1) Hypertensive urgency ICD Code: I16.0 - Hypertensive urgency Diagnosis: Principal (2) Intractable nausea and vomiting ICD Code: R11.2 - Nausea with vomiting, unspecified Diagnosis: Principal Status: Resolved (3) Hypokalemia ICD Code: E87.6 - Hypokalemia Diagnosis: Principal Status: Acute (4) Hypothyroid ICD Code: E03.9 - Hypothyroidism, unspecified Diagnosis: Secondary (5) Headache ICD Code: R51 - Headache Diagnosis: Principal Procedures see hospital course Brief History - From Admission 82-year-old female with a history of atrial fibrillation on chronic oral anticoagulation, hypertension, presented to the ED for evaluation of an acute onset of emesis described by nonbilious started early this morning after patient took Synthroid more associated with nausea times several weeks duration along with headaches. Patient states, she has been feeling nauseated over the past several weeks since her last cardiac ablation however has had no emesis until this morning. She also complained of non-throbbing headaches without any photophobia 2 days duration, which improved some bowel yesterday with tramadol. She denies any sick contact. She also denies any diarrhea. She has no chest pain. She is currently afebrile. When patient presented to the ED she had elevated BP, and reported that over the past few weeks her blood pressure has been consistently elevated. CBC/BMP: 07/05/17 0453 07/05/17 0453 Significant Findings Laboratory Tests Test 07/03/17 08:00 07/03/17 13:00 07/04/17 13:20 07/04/17 17:58 Red Blood Count 3.98 MIL/MM3 (4.00-5.30) 3.76 MIL/MM3 (4.00-5.30) Monocytes (%) (Auto) 11.1 % (0.0-8.0) 10.0 % (0.0-8.0) Eosinophils (%) (Auto) 4.8 % (0.0-4.0) Creatinine 1.07 MG/DL (0.50-1.00) Random Glucose 122 MG/DL (74-106) Potassium Level 3.2 MEQ/L (3.5-5.1) 3.0 MEQ/L (3.5-5.1) Estimat Glomerular Filtration Rate 49 ML/MIN (>89) 68 ML/MIN (>89) Troponin I LESS THAN 0.02 NG/ML Urine Ketones TRACE mg/dL (NEG) Hematocrit 34.9 % (35.0-46.0) Neutrophils (%) (Auto) 72.0 % (16.0-70.0) Blood Urea Nitrogen 5 MG/DL (7-18) Albumin 3.2 GM/DL (3.4-5.0) Calcium Level 8.4 MG/DL (8.5-10.1) Chloride Level 108 MEQ/L (98-107) Carbon Dioxide Level 20.6 MEQ/L (21.0-32.0) Thyroid Stimulating Hormone 3rd Gen 7.750 uIU/ML (0.358-3.740) Test 07/05/17 04:53 Red Blood Count 3.77 MIL/MM3 (4.00-5.30) Blood Urea Nitrogen 5 MG/DL (7-18) Potassium Level 3.0 MEQ/L (3.5-5.1) Chloride Level 109 MEQ/L (98-107) Estimat Glomerular Filtration Rate 71 ML/MIN (>89) Imaging Last Impressions Brain MRI 07/04/17 0000 Signed Impressions: Service Date/Time: Tuesday, July 04, 2017 18:14 - CONCLUSION: 1. No acute abnormality is seen. 2. Atrophy. 3. Suspected small vessel ischemic change in the white matter. Lyndon Monroy MD Head CT 07/03/17 0746 Signed Impressions: Service Date/Time: Monday, July 03, 2017 08:11 - CONCLUSION: 1. Bifrontal cerebral atrophy. 2. Mild periventricular and subcortical white matter small vessel ischemic changes bilaterally. 3. Scattered old tiny lacunar infarcts within the bilateral basal ganglia. 4. No acute infarct, acute hemorrhage, mass effect or extra-axial fluid collections. Oracio Addison MD PE at Discharge GENERAL: in NAD CARDIOVASCULAR: Regular rate and rhythm without murmurs, gallops, or rubs. RESPIRATORY: Breath sounds equal bilaterally. No accessory muscle use. GASTROINTESTINAL: Abdomen soft, non-tender, nondistended. MUSCULOSKELETAL: No cyanosis, or edema. BACK: Nontender without obvious deformity. No CVA tenderness. NEURO: AAO X 4. Cranial nerves II-12 intact. Coordination is intact. Sensation and motor grossly intact. Pt update on day of discharge f/u HTN, AYERS, and N/V patient stated she feels a lot of better. Denied any N/V or abdominal pain. She stated that AYERS resolved after given Fioricet patient stated she feels a lot better and ready to go home. Tolerating oral intake. also let her know about potassium and she stated that her potassium is always low. Hospital Course 82-year-old female with Intractable nausea and vomiting Seemed to occur after the ablation. Unsure if this is related to her labile blood pressure versus effect of medication. She is a poor historian so hard to determine. Head CT noted and review without any intracranial abnormalities. Labs reviewed which are relatively stable. resolved after AYERS resolved and better controlled of HTN. Headache, intermittent Secondary to labile BP versus intractable nausea and vomiting Head CT noted in review by me without any intracranial abnormalities MRI of brain showed no acute abnormality. AYERS resolved with Fioricet. Labile benign hypertension Home medication resumed but patient continues to have labile blood pressure and uncontrolled blood pressure. added amlodipine and ultra sound technician consulted and agree with plan. BP better controlled with added medication. Hypokalemia seemed to be chronic. replenished and scheduled home K. History of atrial fibrillation on Eliquis, amiodarone, and beta ramesh Telemetry monitoring Pt Condition on Discharge: Stable Discharge Disposition: Discharge Home Discharge Time: > 30 minutes Discharge Instructions DIET: Follow Instructions for: Heart Healthy Diet Activities you can perform: Regular-No Restrictions Follow up Referrals: Cardiology PCP Follow-up - 1 Week New Medications: Ondansetron Odt (Zofran Odt) 4 Mg Tab 4 MG SL Q6HR PRN for Nausea/Vomiting, #15 TAB 0 Refills Potassium Chloride ER (Potassium Chloride ER) 20 Meq Tab 20 MEQ PO DAILY for Electrolyte Replacement, #30 TAB 0 Refills Amlodipine (Norvasc) 10 Mg Tab 10 MG PO DAILY for hypertension, #30 TAB 0 Refills [Mgyc-Ftqtg-Thue 325-50-40 Mg] () 1 TAB TAB 1 TAB PO Q8H PRN for headache, #20 TAB 0 Refills Continued Medications: Alprazolam (Alprazolam) 0.25 Mg Tab 0.25 MG PO Q6H PRN for ANXIETY, TAB 0 Refills Amiodarone (Amiodarone) 200 Mg Tab 200 MG PO DAILY for Regulate Heart Beat, #30 TAB 0 Refills Apixaban (Eliquis) 5 Mg Tab 5 MG PO BID for Blood Clot Prevention, #60 TAB 0 Refills Cholecalciferol (Vitamin D3) 1,000 Unit Cap 1000 UNITS PO DAILY for Nutritional Supplement, #1 BOTTLE 0 Refills Estradiol Patch 168 HR (Estradiol Patch 168 HR) 0.025 Mg/24 Hr Patch 1 PATCH T-DERMAL Q7D for Estrogen Supplements, #4 PATCH 0 Refills Remove old patch and discard when new patch being placed. Levothyroxine (Levothyroxine) 25 Mcg Tab 25 MCG PO DAILY@0600 for Thyroid, #31 TAB Metoprolol Tartrate (Metoprolol Tartrate) 25 Mg Tab 25 MG PO BID, #60 TAB 0 Refills Multiple Vitamins W/ Minerals (Centrum Silver Adult 50+) 0.4 Mg-300 Mcg-250 Mcg Tab 1 TAB PO DAILY for Nutritional Supplement Ramipril (Ramipril) 10 Mg Cap 20 MG PO BID, CAP 0 Refills Sennosides-Docusate Sodium (Senna Plus 8.6-50 mg) 1 Tab Tab 2 TAB PO DAILY Catherine Fagan MD Jul 05, 2017 09:11
--- NOTE | 2017-07-05 09:11 | HHI.FF ---
Face to Face Verification Diagnosis: (1) Intractable nausea and vomiting (2) Hypertensive urgency (3) Renal insufficiency (4) Headache (5) Atrial fibrillation with RVR Physical Therapy Order: Evaluate and Treat, Improve ambulation, Strength and gait training Home Health Nursing Order: Medical education Signs/symptoms of disease process Medication education-adverse effect I have seen patient Rachna Ferreira on 07/05/17. My clinical findings support the need for the requested home health care services because: Ltd mobility - disease progression Deconditioned w/ increased weakness I certify that my clinical findings support that this patient is homebound because: Poor cardiac reserve Catherine Fagan MD Jul 05, 2017 09:11
[2017-07-05] MEDS ORDERED: ZOFR4TAB3 SL (09:13)
[2017-07-05] MEDS: ACETAMIN 325 MG/BUTALBITAL 50 MG/CAFFEINE 40 MG TAB PO PRN (09:18)
[2017-07-05] MEDS: APIXABAN 5 MG TABLET PO SCH (09:19)
[2017-07-05] MEDS: METOPROLOL TARTRATE 25 MG TAB PO SCH (09:19)
[2017-07-05] MEDS: AMIODARONE 200 MG TAB PO SCH (09:19)
[2017-07-05] MEDS: RAMIPRIL 5 MG CAP PO SCH (09:19)
== END 2017-07-05 10:45 | disposition home or self-care (01) ==
LOC: NEPE 07:34 → NEDA 10:15 → NEPHCDU 11:17
PROVIDERS: ADMIT Family Medicine; ATTEND Family Medicine
DX: R11.2 Nausea with vomiting, unspecified (principal); I16.0 Hypertensive urgency; I12.9 Hypertensive chronic kidney disease with stage 1 through stage 4 chronic kidney disease, or unspecified chronic kidney disease; N18.9 Chronic kidney disease, unspecified; E87.6 Hypokalemia; I48.0 Paroxysmal atrial fibrillation; E03.9 Hypothyroidism, unspecified; Z79.01 Long term (current) use of anticoagulants; Z87.891 Personal history of nicotine dependence; Z90.710 Acquired absence of both cervix and uterus
CPT/HCPCS: 70450; 70551; 80048; 80053; 81001; 83735; 84443; 84484; 85025; 85027; 85610; 85730; 93005; 96361; 96374; 96375; 97162; 99285; G0378; G8987; G8988; J0360; J2405; J2765; J3480; J7030

== ENCOUNTER 2018-05-18 11:03 | Observation (INO) ==
--- NOTE | 2018-05-18 11:42 | ED ---
HPI General Chief complaint: Neuro Symptoms/Deficit Stated complaint: Poss Stroke Time Seen by Provider: 05/18/18 11:28 Source: patient and family Mode of arrival: ambulatory Limitations: no limitations History of Present Illness HPI narrative: Is an 82-year-old woman who presents to the emergency department complaining of speech difficulties. Her reports that this morning she began asking for any questions. She reports that she felt funny, kind of foggy. notes a little bit of slurred speech. There is no facial asymmetry. There is no weakness. There is no numbness tingling or gait disturbances. She has a history of A. fib. Is on Eliquis. No history of CVA or TIA in the past. States she still feels little bit unwell. She takes Xanax denies any recent illness or injury. No other complaints. Related Data Home Medications Medication Instructions Recorded Confirmed alprazolam 0.25 mg PO BID PRN 05/18/18 05/18/18 amiodarone 200 mg PO DAILY 05/18/18 05/18/18 apixaban [Eliquis] 5 mg PO BID 05/18/18 05/18/18 estradiol 0.5 mg PO WEEKLY 05/18/18 05/18/18 hydrochlorothiazide 12.5 mg PO DAILY 05/18/18 05/18/18 levothyroxine 50 mcg PO DAILY 05/18/18 05/18/18 metoprolol tartrate 25 mg PO BID 05/18/18 05/18/18 potassium chloride 20 meq PO DAILY 05/18/18 05/18/18 ramipril 10 mg PO QID 05/18/18 05/18/18 Allergies Allergy/AdvReac Type Severity Reaction Status Date / Time cefaclor Allergy Severe RASH Verified 05/18/18 11:55 paroxetine Allergy Severe Rash Verified 05/18/18 11:55 Sulfa (Sulfonamide Allergy Severe RASH Verified 05/18/18 11:55 Antibiotics) ciprofloxacin Allergy Unknown GI UPSET Verified 05/18/18 11:55 clonidine Allergy Unknown SKIN Verified 05/18/18 11:55 IRRITATION latex bandages AdvReac Mild SKIN Uncoded 05/11/17 17:20 REDNESS, RASH Review of Systems ROS: all other systems reviewed are negative [facility] Medical History Medical History Afib (Acute) HTN (hypertension) (Acute) History of hysterectomy (Acute) Hypothyroid (Acute) Surgical History Surgical History History of hip replacement (Acute) History of radiofrequency ablation procedure for cardiac arrhythmia (Acute) Social History Social History Substance History: No History of Abuse Smoking Status: Former smoker How Often Do You Have a Drink Containing Alcohol: Never Recent Travel in [facility] within the Last 8 Weeks: No Recent Out of Country Travel within the Last 8 Weeks: No Immunization History Tetanus Immunization: >5 Years Exam Narrative Exam Narrative: GENERAL: Well-appearing 82-year-old woman, no acute distress. SKIN: Focused skin assessment warm/dry. HEAD: Atraumatic. Normocephalic. EYES: Pupils equal and round. No scleral icterus. No injection or drainage. ENT: No nasal bleeding or discharge. Mucous membranes pink and moist. NECK: Trachea midline. No JVD. CARDIOVASCULAR: Regular rate and rhythm. No appreciable irregularity on exam. No murmur appreciated. RESPIRATORY: No accessory muscle use. Clear to auscultation. Breath sounds equal bilaterally. GASTROINTESTINAL: Abdomen soft, non-tender, nondistended. Hepatic and splenic margins not palpable. MUSCULOSKELETAL: No obvious deformities. No clubbing. No cyanosis. No edema. NEUROLOGICAL: Awake and alert. Cranial nerves II through XII are intact. I will see any facial asymmetry. Strength is full and equal in the upper and lower 70s. No pronator drift. No lower extremity drift. She has a little bit of tremor in both upper extremities but do not see any karthik dysmetria. Sensation grossly intact throughout. PSYCHIATRIC: Anxious. Course Initial Documented Vital Signs Temperature 97.5 F L 05/18/18 11:26 Pulse Rate 69 05/18/18 11:26 Respiratory Rate 19 05/18/18 11:26 Blood Pressure 171/86 H 05/18/18 11:26 Pulse Oximetry 98 05/18/18 11:26 Last Documented Vital Signs Temperature 97.5 F L 05/18/18 11:26 Pulse Rate 69 05/18/18 11:26 Respiratory Rate 19 05/18/18 11:26 Blood Pressure 171/86 H 05/18/18 11:26 Pulse Oximetry 98 05/18/18 12:03 Medical Decision Making MDM Narrative Medical decision making narrative: 82-year-old woman presents emerged from complaining of speech difficulty slurred speech and a little bit of foggy confusion. Possibly consistent with TIA. She is a fairly normal exam now. She is anxious. She does have a history of A. fib. Will check labs, CT, medicine for anxiety, likely admission for TIA workup. Medical Screen Exam Complete: Yes Emergency Medical Condition: Yes Lab Data Lab results reviewed: Yes I reviewed the patient's lab results. Result diagrams: 05/18/18 11:40 05/18/18 11:40 Lab Results 05/18/18 05/18/18 Range/Units 11:40 11:40 WBC 9.1 (4.0-11.0) th/mm3 RBC 4.31 (4.00-5.30) mil/mm3 Hgb 14.0 (11.6-15.3) gm/dL Hct 40.4 (35.0-46.0) % MCV 93.8 (80.0-100.0) fL MCH 32.6 (27.0-34.0) pg MCHC 34.7 (32.0-36.0) % RDW 13.8 (11.6-17.2) % Plt Count 246 (150-450) th/mm3 MPV 8.1 (7.0-11.0) fL Neut % (Auto) 57.5 (16.0-70.0) % Lymph % (Auto) 26.8 (9.0-44.0) % Mineral % (Auto) 11.1 H (0.0-8.0) % Eos % (Auto) 3.7 (0.0-4.0) % Baso % (Auto) 0.9 (0.0-2.0) % Neut # (Auto) 5.2 (1.8-7.7) th/mm3 Lymph # (Auto) 2.4 (1.0-4.8) th/mm3 Mineral # (Auto) 1.0 H (0.0-0.9) th/mm3 Eos # (Auto) 0.3 (0.0-0.4) th/mm3 Baso # (Auto) 0.1 (0.0-0.2) th/mm3 WBC Differential . Differential Comment Auto diff final Sodium 134 L (136-145) meq/L Potassium 3.2 L (3.5-5.1) meq/L Chloride 100 (98-107) meq/L Carbon Dioxide 25.6 (21.0-32.0) meq/L Anion Gap 8 (5-15) meq/L BUN 25 H (7-18) mg/dL Creatinine 1.06 H (0.50-1.00) mg/dL Estimated GFR 50 L (>89) mL/min Random Glucose 131 H (74-106) mg/dL Calcium 9.1 (8.5-10.1) mg/dL Magnesium 1.9 (1.5-2.5) mg/dL Total Bilirubin 0.6 (0.2-1.0) mg/dL AST 29 (15-37) U/L ALT 35 (10-53) U/L Alkaline Phosphatase 82 (45-117) U/L Troponin I Less than 0.02 L (0.02-0.05) ng/mL Total Protein 7.3 (6.4-8.2) g/dL Albumin 3.7 (3.4-5.0) g/dL Imaging Data Radiologist's impression: Head CT 05/18/18 11:30 CONCLUSION: 1. No acute hemorrhage, mass or acute infarction. 2. 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 . ECG Data Attestation: I personally reviewed and interpreted this ECG as follows: Interpretation: Sinus rhythm at a rate of 67, normal intervals, some nonspecific lateral T wave flattening, no definite evidence of acute ischemia. Discharge Plan Discharge Disposition Patient Disposition: 30 Still Patient Physicians Team ED Provider: Phil Ferrari Primary Care Provider: Junior Quinonez Attending Provider: Blake Graham Discharge Interventions Interventions: Vital Signs Last Done: 05/18/18 11:26 Status ED Status: Admitted Observation Patient
[2018-05-18 11:59] LABS: Baso # (Auto) 0.1 th/mm3 (0.0-0.2); Baso % (Auto) 0.9 % (0.0-2.0); Eos # (Auto) 0.3 th/mm3 (0.0-0.4); Eos % (Auto) 3.7 % (0.0-4.0); Hematocrit 40.4 % (35.0-46.0); Lymph # (Auto) 2.4 th/mm3 (1.0-4.8); Lymph % (Auto) 26.8 % (9.0-44.0); Mean Corpuscular HGB Conc 34.7 % (32.0-36.0); Mean Corpuscular Hemoglobin 32.6 pg (27.0-34.0); Mean Corpuscular Volume 93.8 fL (80.0-100.0); Mean Platelet Volume 8.1 fL (7.0-11.0); Mono % (Auto) 11.1 % (0.0-8.0); Neut # (Auto) 5.2 th/mm3 (1.8-7.7); Neut % (Auto) 57.5 % (16.0-70.0); Platelet Count 246 th/mm3 (150-450); Red Blood Count 4.31 mil/mm3 (4.00-5.30); Red Cell Distribution Width 13.8 % (11.6-17.2); White Blood Count 9.1 th/mm3 (4.0-11.0)
[2018-05-18 12:21] LABS: Alkaline Phosphatase 82 U/L (45-117); Total Protein 7.3 g/dL (6.4-8.2)
[2018-05-18 12:25] LABS: Alanine Aminotransferase 35 U/L (10-53); Albumin 3.7 g/dL (3.4-5.0); Anion Gap 8 meq/L (5-15); Aspartate Aminotransferase 29 U/L (15-37); Blood Urea Nitrogen 25 mg/dL (7-18); Calcium 9.1 mg/dL (8.5-10.1); Carbon Dioxide 25.6 meq/L (21.0-32.0); Chloride 100 meq/L (98-107); Glomerular Filtration Rate 50 mL/min (>89); Glucose,Random 131 mg/dL (74-106); Magnesium 1.9 mg/dL (1.5-2.5); Potassium 3.2 meq/L (3.5-5.1); Sodium 134 meq/L (136-145)
--- NOTE | 2018-05-18 13:21 | CT ---
EXAM DATE: 05/18/2018 1:18 PM EDT AGE/SEX: 82 years / Female INDICATIONS: Forgetful and fatigued CLINICAL DATA: This is the patient's initial encounter. Patient reports that signs and symptoms have been present for 1 day and indicates a pain score of 0/10. MEDICAL/SURGICAL HISTORY: Hypertension. A-fib Hysterectomy. RADIATION DOSE: 35.45 CTDI (mGy) COMPARISON: [facility] – [place], [place] BRAIN W/O CONTRAST, 07/03/2017. . TECHNIQUE: CT of the head without contrast. Using automated exposure control and adjustment of the mA and/or kV according to patient size, radiation dose was kept as low as reasonably achievable to ob tain optimal diagnostic quality images. DICOM format image data is available electronically for revi ew and comparison. FINDINGS: Cerebrum: The ventricles are normal for age. No evidence of midline shift, mass lesion, hemorrhage or acute infarction. There is a small old lacunar infarct again noted in the right basal ganglia. Mil d chronic small vessel ischemic changes are again noted. No extraaxial fluid collections are seen. Posterior Fossa: The cerebellum and brainstem are intact. The 4th ventricle is midline. The cerebe llopontine angle is unremarkable. Extracranial: The visualized portion of the orbits is intact. Skull: The calvaria is intact. No evidence of skull fracture. CONCLUSION: 1. No acute hemorrhage, mass or acute infarction. 2. 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 . Electronically signed by: Juan José Gardner MD 05/18/2018 1:20 PM EDT
[2018-05-18] MEDS ORDERED: Labetalol HCl Inj 100 MG/20 ML Vial IV.PUSH PRN (15:00)
--- NOTE | 2018-05-18 15:10 | P.HP ---
History of Present Illness Primary Care Physician: Junior Quinonez MD Chief Complaint: Neuro deficits History of Present Illness: 82-year-old female with a history of hypertension, A. fib on chronic oral anticoagulation was brought to the ED for evaluation of acute onset of speech difficulties and slurred speech. Patient states she became "spacy" and felt funny this AM around 10AM. She couldn't articulate herself. She denies any weakness, numbness or gait disturbances. Head CT ordered in the ED was negative. During exam, patient reported improvement of symptoms of speech disturbances. Review of Systems All other systems reviewed negative except as stated [facility] - History History Provided By: Patient, Family Member - Medical History Medical History: Medical History (Last Reviewed 05/18/18 @ 11:40 by Phil Ferrari MD) Afib HTN (hypertension) History of hysterectomy Hypothyroid - Surgical History Surgical History: Surgical History (Last Reviewed 05/18/18 @ 11:40 by Phil Ferrari MD) History of hip replacement History of radiofrequency ablation procedure for cardiac arrhythmia - Family History Family History: Family History (Last Updated 05/18/18 @ 15:07 by Blake Graham MD) Other CAD (coronary artery disease) Diabetes - Tobacco History Smoking Status: Former smoker - Alcohol History How Often Do You Have a Drink Containing Alcohol: Never - Substance Use History Substance History: No History of Abuse - Travel History Recent Travel in the [place] Within the Last 8 Weeks: No Recent Travel Out of the Country Within the Last 8 Weeks: No - Immunization History Tetanus Immunization: >5 Years Medications and Allergies Active Medications: Active Medications Acetaminophen (Tylenol) 650 mg PO Q4H PRN PRN Reason: PAIN SCALE 1 TO 10 Amiodarone HCl (Cordarone) 200 mg PO DAILY ERIK Clonidine HCl (Catapres) 0.1 mg PO Q6H PRN PRN Reason: to keep SBP between 140-160 Hydrochlorothiazide (Microzide) 12.5 mg PO DAILY [facility] Sodium Chloride (Ns Inj) 1,000 mls @ 70 mls/hr IV.CONT .[id number] ERIK Labetalol HCl (Trandate Inj) 20 mg IV.PUSH Q4H PRN PRN Reason: SBP > 160 mmHg Levothyroxine Sodium (Synthroid) 50 mcg PO DAILY@0600 ERIK Metoprolol Tartrate (Lopressor) 25 mg PO BID ERIK Potassium Chloride (K-Dur) 20 meq PO DAILY ERIK Ramipril (Altace) 10 mg PO QID ERIK Sodium Chloride (Ns Flush) 2 ml IV.FLUSH PRN PRN PRN Reason: FLUSH AFTER USING IV ACCESS Last Admin: 05/18/18 11:42 Dose: 2 ml Sodium Chloride (Ns Flush) 2 ml IV.FLUSH BID ERIK Allergies Allergy/AdvReac Type Severity Reaction Status Date / Time cefaclor Allergy Severe RASH Verified 05/18/18 11:55 paroxetine Allergy Severe Rash Verified 05/18/18 11:55 Sulfa (Sulfonamide Allergy Severe RASH Verified 05/18/18 11:55 Antibiotics) ciprofloxacin Allergy Unknown GI UPSET Verified 05/18/18 11:55 clonidine Allergy Unknown SKIN Verified 05/18/18 11:55 IRRITATION latex bandages AdvReac Mild SKIN Uncoded 05/11/17 17:20 REDNESS, RASH Home Medications Medication Instructions Recorded Confirmed Type alprazolam 0.25 mg PO BID PRN 05/18/18 05/18/18 History amiodarone 200 mg PO DAILY 05/18/18 05/18/18 History apixaban [Eliquis] 5 mg PO BID 05/18/18 05/18/18 History estradiol 0.5 mg PO WEEKLY 05/18/18 05/18/18 History hydrochlorothiazide 12.5 mg PO DAILY 05/18/18 05/18/18 History levothyroxine 50 mcg PO DAILY 05/18/18 05/18/18 History metoprolol tartrate 25 mg PO BID 05/18/18 05/18/18 History potassium chloride 20 meq PO DAILY 05/18/18 05/18/18 History ramipril 10 mg PO QID 05/18/18 05/18/18 History Exam Vital signs: Vital Signs 05/18/18 11:26 05/18/18 12:03 Temperature 97.5 F L Pulse Rate 69 Respiratory Rate 19 Blood Pressure 171/86 H Pulse Oximetry 98 98 Intake & Output 05/17/18 05/18/18 05/18/18 18:59 06:59 18:59 Weight 68.039 kg Narrative: GENERAL: NAD SKIN: Warm and dry. HEAD: Atraumatic. Normocephalic. EYES: Pupils equal and round. No scleral icterus. No injection or drainage. ENT: No nasal bleeding or discharge. Mucous membranes pink and moist. NECK: Trachea midline. No JVD. CARDIOVASCULAR: Regular rate and rhythm. RESPIRATORY: No accessory muscle use. Clear to auscultation. Breath sounds equal bilaterally. GASTROINTESTINAL: Abdomen soft, non-tender, nondistended. Hepatic and splenic margins not palpable. MUSCULOSKELETAL: Extremities without clubbing, cyanosis, or edema. No obvious deformities. NEUROLOGICAL: Awake and alert. No obvious cranial nerve deficits. Motor grossly within normal limits. Five out of 5 muscle strength in the arms and legs. Normal speech. PSYCHIATRIC: Appropriate mood and affect; insight and judgment normal. Results - Labs CBC & Chem 7: 05/18/18 11:40 05/18/18 11:40 Labs: Laboratory Results - last 24 hr 05/18/18 05/18/18 11:40 11:40 WBC 9.1 RBC 4.31 Hgb 14.0 Hct 40.4 MCV 93.8 MCH 32.6 MCHC 34.7 RDW 13.8 Plt Count 246 MPV 8.1 Neut % (Auto) 57.5 Lymph % (Auto) 26.8 [place] % (Auto) 11.1 H Eos % (Auto) 3.7 Baso % (Auto) 0.9 Neut # (Auto) 5.2 Lymph # (Auto) 2.4 [place] # (Auto) 1.0 H Eos # (Auto) 0.3 Baso # (Auto) 0.1 WBC Differential . Differential Comment Auto diff final Sodium 134 L Potassium 3.2 L Chloride 100 Carbon Dioxide 25.6 Anion Gap 8 BUN 25 H Creatinine 1.06 H Estimated GFR 50 L Random Glucose 131 H Calcium 9.1 Magnesium 1.9 Total Bilirubin 0.6 AST 29 ALT 35 Alkaline Phosphatase 82 Troponin I Less than 0.02 L Total Protein 7.3 Albumin 3.7 - Imaging Impressions Head CT 05/18/18 11:30 CONCLUSION: 1. No acute hemorrhage, mass or acute infarction. 2. 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 . Caprini VTE Risk Assessment Caprini VTE Risk Assessment: Moderate/High Risk (score >= 2) Caprini Risk Assessment Model: Point Value = 1 Point Value = 2 Point Value = 3 Point Value = 5 Age 41-60 Minor surgery BMI > 25 kg/m2 Swollen legs Varicose veins or History of unexplained or recurrent spontaneous Oral contraceptives or hormone replacement Sepsis (< 1 month) Serious lung disease, including pneumonia (< 1 month) Abnormal pulmonary function Acute myocardial infarction Congestive heart failure (< 1 month) History of inflammatory bowel disease Medical patient at bed rest Age 61-74 Arthroscopic surgery Major open surgery (> 45 min) Laparoscopic surgery (> 45 min) Malignancy Confined to bed (> 72 hours) Immobilizing plaster cast Central venous access Age >= 75 History of VTE Family history of VTE Factor V Leiden Prothrombin [id number] Lupus anticoagulant Anticardiolipin antibodies Elevated serum homocysteine Heparin-induced thrombocytopenia Other congenital or acquired thrombophilia Stroke (< 1 month) Elective arthroplasty Hip, pelvis, or leg fracture Acute spinal cord injury (< 1 month) Prophylaxis Regimen: Total Risk Factor Score Risk Level Prophylaxis Regimen 0-1 Low Early ambulation 2 Moderate Order ONE of the following: *Sequential Compression Device (SCD) *Heparin 5000 units SQ BID 3-4 Higher Order ONE of the following medications: *Heparin 5000 units SQ TID *Enoxaparin/Lovenox 40 mg SQ daily (WT < 150 kg, CrCl > 30 mL/min) *Enoxaparin/Lovenox 30 mg SQ daily (WT < 150 kg, CrCl > 10-29 mL/min) *Enoxaparin/Lovenox 30 mg SQ BID (WT < 150 kg, CrCl > 30 mL/min) AND/OR *Sequential Compression Device (SCD) 5 or more Highest Order ONE of the following medications: *Heparin 5000 units SQ TID (Preferred with Epidurals) *Enoxaparin/Lovenox 40 mg SQ daily (WT < 150 kg, CrCl > 30 mL/min) *Enoxaparin/Lovenox 30 mg SQ daily (WT < 150 kg, CrCl > 10-29 mL/min) *Enoxaparin/Lovenox 30 mg SQ BID (WT < 150 kg, CrCl > 30 mL/min) AND *Sequential Compression Device (SCD) Assessment and Plan - Plan 82-year-old female with TIA rule out Head CT noted and reviewed by me without any acute hemorrhage, mass or acute infarction. Check brain MRI/MRA and consult neurology if abnormal Check carotid ultrasound, Place Holter Consider EEG History atrial fibrillation, hypertension and other chronic medical conditions Continue with outpatient medications DVT prophylaxis: Resume Eliquis pending brain MRI
[2018-05-18] MEDS ORDERED: Gadobutrol PF 7.5 MMOL/7.5 ML Vial (for RAD) IV.SIG ONE (15:30)
[2018-05-18 15:39] LABS: Bilirubin,Urine Negative (Negative); Clarity,Urine Clear (Clear); Color,Urine Straw (Yellw/Straw); Glucose,Urine (UA) Negative (Negative); Leukocyte Esterase,Urine Negative (Negative); Mucus,Urine Few /lpf (Occasional); Nitrite,Urine Negative (Negative); Specific Gravity,Urine 1.005 (1.002-1.035); Squamous Epithelial Cell,Urine 2 /hpf (0-5)
--- NOTE | 2018-05-18 15:54 | MR ---
EXAM DATE: 05/18/2018 3:46 PM EDT AGE/SEX: 82 years / Female INDICATIONS: CVA. Slurred speech for one day. CLINICAL DATA: This is the patient's initial encounter. Patient reports that signs and symptoms have been present for 1 day and indicates a pain score of 4/10. MEDICAL/SURGICAL HISTORY: Hypertension. Skin cancer. Hysterectomy. Cardiac ablation, Hip repla cement. COMPARISON: [facility] – [place], MRI BRAIN W/O CONTRAST, 07/04/2017. . TECHNIQUE: Multiplanar, multisequence examination of the brain was performed without and with 7 ml Ga davist (gadobutrol) contrast as a single exam dose. FINDINGS: Cerebrum: The ventricles are normal for age. No evidence of midline shift, mass lesion, hemorrhage or acute infarction. Is a small Virchow robins space along the right inferior basal ganglia change. No extraaxial fluid collections are seen. The pituitary gland and suprasellar cistern are normal in configuration. White Matter: On the FLAIR weighted images there is increased signal in centrum semiovale and perive ntricular white matter characteristic of chronic small vessel ischemic change. Posterior Fossa: The cerebellum and brainstem are intact. The 4th ventricle is midline. The cerebel lopontine angle is unremarkable. The cerebellar tonsils are normal in position. Diffusion Imaging: No focal areas of restricted diffusion are seen. No evidence of acute infarction . Extracranial: The visualized portions of the orbits and paranasal sinuses are unremarkable. Post Contrast: No abnormal areas of parenchymal or dural enhancement. No evidence of blood-brain ba rrier breakdown. CONCLUSION: 1. No acute hemorrhage, mass or infarction. 2. Extensive chronic small vessel ischemic changes. 3. Small Virchow robins space along the right inferior basal ganglia change. Electronically signed by: Juan José Gardner MD 05/18/2018 3:53 PM EDT
[2018-05-18] MEDS ORDERED: Acetaminophen 325 MG Tablet PO PRN (16:00)
--- NOTE | 2018-05-18 16:10 | MR ---
EXAM DATE: 05/18/2018 4:02 PM EDT AGE/SEX: 82 years / Female INDICATIONS: CVA. Slurred speech for one day. CLINICAL DATA: This is the patient's initial encounter. Patient reports that signs and symptoms have been present for 1 day and indicates a pain score of 3/10. MEDICAL/SURGICAL HISTORY: Hypertension. Skin cancer. Hysterectomy. Cardiac ablation, Hip repla cement. COMPARISON: No prior exams available for comparison. TECHNIQUE: 3D [id number] MRA was performed. Source images, multiplanar STS MIP, and 3D volum e MIP reconstructions were reviewed. FINDINGS: There is excellent visualization of the major intracranial arteries out to the second-order branch ve ssels. There is a patent left posterior communicating artery. There is no evidence for aneurysm, vess el truncation or stenosis, and no evidence for vascular malformation. CONCLUSION: No intracranial vascular abnormality is identified. Electronically signed by: Lyndon Jeong MD 05/18/2018 4:08 PM EDT
--- NOTE | 2018-05-18 16:49 | US ---
EXAM DATE: 05/18/2018 4:41 PM EDT AGE/SEX: 82 years / Female INDICATIONS: Trans ischemic attack. CLINICAL DATA: This is the patient's initial encounter. Patient reports that signs and symptoms have been present for 4 - 6 days and indicates a pain score of 0/10. MEDICAL/SURGICAL HISTORY: Hypertension. Hypothyroidism. Afib. Hysterectomy. Hip replacement. Radiofrequency ablation procedure for cardiac arrhythmia. COMPARISON: No prior exams available for comparison. VELOCITY PARAMETERS: ICA/CCA Ratio: Right 1.1 , Left 0.9 ICA: Right 77 cm/sec, Left 68 cm/sec CCA: Right 68 cm/sec, Left 74 cm/sec ECA: Right 60 cm/sec, Left 71 cm/sec Vertebral: Right 48 cm/sec antegrade, Left 31 cm/sec antegrade FINDINGS: Right Carotid: There is mild calcified and noncalcified plaque in the carotid bulb and proximal inte rnal carotid artery.The waveforms are within normal limits. Left Carotid: No significant plaque is visualized. The waveforms are within normal limits. Other: None. CONCLUSION: 1. Right Internal Carotid Artery: Findings indicate <50% stenosis. 2. Left Internal Carotid Artery: No significant stenosis or atherosclerotic plaque is visualized. Electronically signed by: Lyndon Jeong MD 05/18/2018 4:48 PM EDT
[2018-05-18] MEDS ORDERED: Ramipril 5 MG Capsule PO SCH (18:00)
[2018-05-18] MEDS: Sod Chloride 0.9% Inj 1,000 ML IV.CONT SCH (18:18)
[2018-05-18] MEDS: Metoprolol Tartrate 25 MG Tablet PO SCH (20:43)
[2018-05-18] MEDS: Sodium Chloride 0.9% 2 ML Flush BID IV.FLUSH SCH (21:58)
[2018-05-19 04:22] LABS: Baso # (Auto) 0.1 th/mm3 (0.0-0.2); Baso % (Auto) 0.6 % (0.0-2.0); Eos # (Auto) 0.3 th/mm3 (0.0-0.4); Eos % (Auto) 3.6 % (0.0-4.0); Hematocrit 37.1 % (35.0-46.0); Hemoglobin 13.3 gm/dL (11.6-15.3); Lymph % (Auto) 23.6 % (9.0-44.0); Mean Corpuscular HGB Conc 35.9 % (32.0-36.0); Mean Corpuscular Hemoglobin 32.5 pg (27.0-34.0); Mean Corpuscular Volume 90.6 fL (80.0-100.0); Mean Platelet Volume 7.6 fL (7.0-11.0); Mono # (Auto) 0.9 th/mm3 (0.0-0.9); Mono % (Auto) 11.2 % (0.0-8.0); Neut # (Auto) 5.1 th/mm3 (1.8-7.7); Platelet Count 220 th/mm3 (150-450); Red Blood Count 4.09 mil/mm3 (4.00-5.30); Red Cell Distribution Width 13.6 % (11.6-17.2); White Blood Count 8.3 th/mm3 (4.0-11.0)
[2018-05-19] MEDS: Sod Chloride 0.9% Inj 1,000 ML IV.CONT SCH (04:33)
[2018-05-19 04:52] LABS: Albumin 3.3 g/dL (3.4-5.0); Anion Gap 11 meq/L (5-15); Aspartate Aminotransferase 25 U/L (15-37); Blood Urea Nitrogen 17 mg/dL (7-18); Calcium 8.4 mg/dL (8.5-10.1); Carbon Dioxide 24.6 meq/L (21.0-32.0); Chloride 102 meq/L (98-107); Glomerular Filtration Rate 58 mL/min (>89); Glucose,Random 94 mg/dL (74-106); Potassium 3.1 meq/L (3.5-5.1); Sodium 138 meq/L (136-145)
[2018-05-19 04:53] LABS: Alanine Aminotransferase 29 U/L (10-53); Cholesterol 167 mg/dL (120-200); Triglycerides 110 mg/dL (42-150)
[2018-05-19 04:55] LABS: Alkaline Phosphatase 76 U/L (45-117); Chol/HDL Ratio 2.81 Ratio; HDL Cholesterol 59.4 mg/dL (40.0-60.0); LDL Cholesterol,Calculated 86 mg/dL (0-99); Total Protein 6.3 g/dL (6.4-8.2)
[2018-05-19] MEDS ORDERED: Levothyroxine 50 MCG Tablet PO SCH (06:00)
[2018-05-19] MEDS: Sodium Chloride 0.9% 2 ML Flush BID IV.FLUSH SCH (08:49)
[2018-05-19] MEDS: Metoprolol Tartrate 25 MG Tablet PO SCH (08:49)
[2018-05-19] MEDS ORDERED: Amiodarone 200 MG Tablet PO SCH (09:00)
[2018-05-19] MEDS ORDERED: amLODIPine 10 MG Tablet PO ONE (10:52)
[2018-05-19] MEDS ORDERED: Ramipril 5 MG Capsule PO ONE (10:53)
--- NOTE | 2018-05-19 11:18 | P.PNIM ---
Subjective Interval history: Admit for dysphoria last night. Symptoms have resolved. Negative stroke workup. Etiology of dysphoria may have been related to CBD oil which is new for her. Physical Exam Vital signs: Vital Signs 05/18/18 11:26 05/18/18 12:03 05/18/18 16:00 Temperature 97.5 F L 97.9 F Pulse Rate 69 69 Respiratory Rate 19 16 Blood Pressure 171/86 H 159/72 H Pulse Oximetry 98 98 97 05/18/18 18:15 05/18/18 18:28 05/18/18 19:00 Temperature 98.2 F Pulse Rate 59 L 53 L Respiratory Rate 16 18 Blood Pressure 151/69 H 139/65 Pulse Oximetry 98 96 95 05/18/18 20:00 05/18/18 21:00 05/18/18 22:00 Temperature 98.1 F 97.6 F Pulse Rate 56 L 56 L 56 L Respiratory Rate 18 18 18 Blood Pressure 137/63 141/67 H 148/67 H Pulse Oximetry 98 98 96 05/18/18 23:10 05/19/18 04:00 05/19/18 08:38 Temperature 98.1 F 97.7 F 97.8 F Pulse Rate 59 L 58 L 61 Respiratory Rate 18 18 16 Blood Pressure 153/72 H 132/63 148/68 H Pulse Oximetry 95 94 L 94 L Intake & Output 05/18/18 05/19/18 05/19/18 18:59 06:59 18:59 Intake Total 220 / 220 1000 / 1000 Balance 220 / 220 1000 / 1000 Weight 68.039 kg 68.039 kg Intake: IV 1000 / 1000 NS Inj 1,000 ML @ 70 mls/hr IV. 1000 / 1000 CONT .[id number] [facility] Rx#:[id number] Oral 220 / 220 Other: # Voids 2 Date of Last Bowel Movement 05/18/18 05/18/18 Weight On Admission 68.039 kg Narrative: GENERAL: NAD, A&Ox3 HEAD: Normocephalic. NECK: Supple, trachea midline. No lymphadenopathy. EYES: No scleral icterus. No injection or drainage. CARDIOVASCULAR: Regular rate and rhythm without murmurs, gallops, or rubs. RESPIRATORY: Breath sounds equal bilaterally. No accessory muscle use. GASTROINTESTINAL: Abdomen soft, non-tender, nondistended. MUSCULOSKELETAL: No cyanosis, or edema. SKIN: Warm and dry. NEURO: No focal neurological deficits. Results - Labs CBC & Chem 7: 05/19/18 03:56 05/19/18 03:56 Laboratory Results - last 24 hr 05/18/18 05/18/18 05/18/18 11:40 11:40 14:58 WBC 9.1 RBC 4.31 Hgb 14.0 Hct 40.4 MCV 93.8 MCH 32.6 MCHC 34.7 RDW 13.8 Plt Count 246 MPV 8.1 Neut % (Auto) 57.5 Lymph % (Auto) 26.8 [place] % (Auto) 11.1 H Eos % (Auto) 3.7 Baso % (Auto) 0.9 Neut # (Auto) 5.2 Lymph # (Auto) 2.4 [place] # (Auto) 1.0 H Eos # (Auto) 0.3 Baso # (Auto) 0.1 WBC Differential . Differential Comment Auto diff final Sodium 134 L Potassium 3.2 L Chloride 100 Carbon Dioxide 25.6 Anion Gap 8 BUN 25 H Creatinine 1.06 H Estimated GFR 50 L POC Glucose Random Glucose 131 H Calcium 9.1 Magnesium 1.9 Total Bilirubin 0.6 AST 29 ALT 35 Alkaline Phosphatase 82 Troponin I Less than 0.02 L Total Protein 7.3 Albumin 3.7 Triglycerides Cholesterol LDL Cholesterol, Calc HDL Cholesterol Cholesterol/HDL Ratio Urine Color Straw Urine Clarity Clear Urine pH 6.0 Ur Specific [place] 1.005 Urine Protein Negative Urine Glucose (UA) Negative Urine Ketones Negative Urine Occult Blood Negative Urine Nitrate Negative Urine Bilirubin Negative Urine Urobilinogen Less than 2 Ur Leukocyte Esterase Negative Urine RBC 3 Urine WBC Less than 1 Ur Squamous Epith Cells 2 Urine Mucus Few H Micro UA Comment Culture not ind Ur Microscopic Review Not Reportable Urine Culture Comments Culture not ind 05/18/18 05/19/18 05/19/18 17:34 03:56 03:56 WBC 8.3 RBC 4.09 Hgb 13.3 Hct 37.1 MCV 90.6 MCH 32.5 MCHC 35.9 RDW 13.6 Plt Count 220 MPV 7.6 Neut % (Auto) 61.0 Lymph % (Auto) 23.6 [place] % (Auto) 11.2 H Eos % (Auto) 3.6 Baso % (Auto) 0.6 Neut # (Auto) 5.1 Lymph # (Auto) 2.0 [place] # (Auto) 0.9 Eos # (Auto) 0.3 Baso # (Auto) 0.1 WBC Differential . Differential Comment Auto diff final Sodium 138 Potassium 3.1 L Chloride 102 Carbon Dioxide 24.6 Anion Gap 11 BUN 17 Creatinine 0.93 Estimated GFR 58 L POC Glucose 103 Random Glucose 94 Calcium 8.4 L Magnesium Total Bilirubin 0.7 AST 25 ALT 29 Alkaline Phosphatase 76 Troponin I Total Protein 6.3 L D Albumin 3.3 L Triglycerides 110 Cholesterol 167 LDL Cholesterol, Calc 86 HDL Cholesterol 59.4 Cholesterol/HDL Ratio 2.81 Urine Color Urine Clarity Urine pH Ur Specific [place] Urine Protein Urine Glucose (UA) Urine Ketones Urine Occult Blood Urine Nitrate Urine Bilirubin Urine Urobilinogen Ur Leukocyte Esterase Urine RBC Urine WBC Ur Squamous Epith Cells Urine Mucus Micro UA Comment Ur Microscopic Review Urine Culture Comments - Imaging Impressions Carotid Doppler Study 05/18/18 00:00 CONCLUSION: 1. Right Internal Carotid Artery: Findings indicate <50% stenosis. 2. Left Internal Carotid Artery: No significant stenosis or atherosclerotic plaque is visualized. Head MRI 05/18/18 00:00 CONCLUSION: 1. No acute hemorrhage, mass or infarction. 2. Extensive chronic small vessel ischemic changes. 3. Small Virchow robins space along the right inferior basal ganglia change. Head MRA 05/18/18 00:00 CONCLUSION: No intracranial vascular abnormality is identified. Head CT 05/18/18 11:30 CONCLUSION: 1. No acute hemorrhage, mass or acute infarction. 2. 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 . Assessment and Plan - Plan 82-year-old female admitted overnight with dysphoria Dysphoria TIA rule out Negative brain MRI Negative brain MRA Carotid ultrasound is negative except for moderate disease at the right carotid Etiology for dysphoria is likely new treatment of CBD oil at home Patient counseled to discontinue CBD oil Medically clear for discharge home today Hypertension Continue baseline treatment Follow blood pressures Adjust treatments as needed Atrial fibrillation Continue Eliquis
--- NOTE | 2018-05-19 16:24 | ECG ---
Date Performed: 05/18/2018 Time Performed: 11:25:04 PTAGE: 82 years EKG: Sinus rhythm INCOMPLETE RIGHT BUNDLE BRANCH BLOCK NONSPECIFIC ST & T-WAVE ABNORMALITY BORDERLINE ECG PREVIOUS TRACING : 07/03/2017 07.51 Since the previous tracing, no significant change noted DOCTOR: Delmer Langford Interpretating Date/Time 05/19/2018 16:23:28
== END 2018-05-19 12:14 | disposition home or self-care (01) ==
LOC: NEPE 11:03 → NEDA 11:03 → NEPFCDU 16:19
PROVIDERS: ADMIT Hospitalist; ATTEND Hospitalist

== ENCOUNTER 2018-07-02 10:42 | Observation (INO) ==
[2018-07-02 10:47] VITALS: RESP 18; TEMP 97.8; O2SAT 98
[2018-07-02 11:00] VITALS: BP 158/72; PULSE 47
--- NOTE | 2018-07-02 11:20 | ED ---
HPI General Chief complaint: Arrhythmia / Palpitations Stated complaint: cardiac Time Seen by Provider: 07/02/18 11:04 Source: patient and RN notes reviewed Mode of arrival: ambulatory Limitations: no limitations History of Present Illness HPI narrative: 83 year old female presents to the emergency department for evaluation of intermittent weakness, dizziness that started 2 weeks ago. Patient states That when she feels dizzy and weak, she will look at her fit bit watch and her heart rate will be in the 40s. She states her normal heart rate is in the 60s. Patient reports history of A. fib, currently on metoprolol and amiodarone. Patient states her audit tech is Dr. Rincon. Patient denies any syncope. She denies any chest pain or shortness of breath. No headache. No abdominal pain. No nausea, vomiting, diarrhea. Movement, exertion does not affect dizziness. No other symptoms or complaints. Moderate severity. Onset (ago): week(s) (2) Severity: moderate Relieving factors: none Exacerbating factors: other (bradycardia) Associated symptoms: Reports weakness; Denies confusion, chest pain, cough, diaphoresis, fever/chills, headaches, loss of appetite, malaise, nausea/vomiting , rash, seizure, shortness of breath and syncope Related Data Home Medications Medication Instructions Recorded Confirmed alprazolam 0.25 mg PO BID PRN 05/18/18 07/02/18 amiodarone 200 mg PO DAILY 05/18/18 07/02/18 amlodipine 10 mg PO DAILY 05/18/18 07/02/18 apixaban [Eliquis] 5 mg PO BID 05/18/18 07/02/18 estradiol 0.5 mg PO WEEKLY 05/18/18 07/02/18 hydrochlorothiazide 12.5 mg PO DAILY 05/18/18 07/02/18 levothyroxine 50 mcg PO DAILY 05/18/18 07/02/18 metoprolol tartrate 25 mg PO BID 05/18/18 07/02/18 potassium chloride 20 meq PO DAILY 05/18/18 07/02/18 ramipril 10 mg PO QID 05/18/18 07/02/18 Allergies Allergy/AdvReac Type Severity Reaction Status Date / Time cefaclor Allergy Severe RASH Verified 07/02/18 10:47 paroxetine Allergy Severe Rash Verified 12/15/18 10:47 Sulfa (Sulfonamide Allergy Severe RASH Verified 07/02/18 10:47 Antibiotics) ciprofloxacin Allergy Unknown GI UPSET Verified 07/02/18 10:47 clonidine Allergy Unknown SKIN Verified 07/02/18 10:47 IRRITATION latex bandages AdvReac Mild SKIN Uncoded 07/02/18 10:47 REDNESS, RASH Review of Systems ROS: all other systems reviewed are negative PMFSH Family History Family History Other CAD (coronary artery disease) Diabetes Social History Social History Substance History: No History of Abuse Second Hand Smoke Exposure: No Smoking Status: Never smoker Tobacco Type: Cigarettes How Often Do You Have a Drink Containing Alcohol: Monthly or less Recent Travel in [facility] within the Last 8 Weeks: No Recent Out of Country Travel within the Last 8 Weeks: No Immunization History Tetanus Immunization: Unsure Exam Narrative Exam Narrative: GENERAL: Well-nourished, well-developed female patient, afebrile SKIN: Focused skin assessment warm/dry. HEAD: Normocephalic. Atraumatic ENT: Mucosa pink and moist. No erythema or exudates. No uvular edema. No uvular , palatal, or tonsillar deviation. Airway patent. Nasal turbinates appear normal without nasal blood, purulent drainage or septal hematoma. Bilateral tympanic membranes clear without erythema or perforation. EYES: No scleral icterus. No injection or drainage. PERRLA. EOMI intact. NECK: Supple, trachea midline. No JVD or lymphadenopathy. CARDIOVASCULAR: Regular rate and rhythm without murmurs, gallops, or rubs. Bilateral radial and pedal pulses are 2+ RESPIRATORY: Breath sounds equal bilaterally. No accessory muscle use. Lung sounds are clear to auscultation GASTROINTESTINAL: Abdomen soft, non-tender, nondistended. MUSCULOSKELETAL: No cyanosis, or edema. Bilateral upper and lower extremity strength 5/5. All extremities are neurovascularly intact BACK: No obvious deformity. No CVA tenderness. NEUROLOGICAL: Awake and alert. Cranial nerves II through XII intact. Motor and sensory grossly within normal limits. Five out of 5 muscle strength in all muscle groups. Normal speech. Finger to nose is normal bilaterally. [id number] is normal bilaterally. Course Initial Documented Vital Signs Temperature 97.8 F 07/02/18 10:44 Pulse Rate 56 L 07/02/18 10:44 Respiratory Rate 18 07/02/18 10:44 Blood Pressure 154/67 H 07/02/18 10:44 Pulse Oximetry 98 07/02/18 10:44 Last Documented Vital Signs Temperature 97.8 F 07/02/18 10:44 Pulse Rate 47 L 07/02/18 10:54 Respiratory Rate 18 07/02/18 10:54 Blood Pressure 158/72 H 07/02/18 10:54 Pulse Oximetry 98 07/02/18 10:54 Medical Decision Making ADAMS Attestation ADAMS supervised visit: Yes Attestation: The history, exam, and medical decision-making in the associated midlevel provider note were completed with my assistance. I reviewed and agree with the findings presented. I attest that I had a [id number] encounter with the patient on the same day, and personally performed and documented my assessment and findings in the medical record. *My assessment and Findings: This is an 83-year-old female who has a history of atrial fibrillation who presents to the emergency department with symptomatic bradycardia. She has been feeling lightheaded and dizzy and her Fitbit has been signaling to her that she has a low heart rate. Here in the emergency department her heart rate dropped into the high 30s and did feel symptomatic along with her heart rate. I think it is reasonable to observe the patient on telemetry for titration of her medication. I expect holding her metoprolol will improve her heart rate. MDM Narrative Medical decision making narrative: 83-year-old female presents to the emergency department for evaluation of intermittent dizziness and weakness associated with bradycardia on her Fitbit watch. She is currently on amiodarone and metoprolol for A. fib. She denies any other symptoms or complaints. She does appear well on exam. EKG, CBC, CMP are ordered and pending. EKG shows supraventricular bradycardia, HR 47, no acute ST changes. CBC shows no acute abnormality. CMP shows BUN 23, creatinine of 1.29. Patient is given NS 500 ml bolus. Patient will be admitted for symptomatic bradycardia. Medical Screen Exam Complete: Yes Emergency Medical Condition: Yes Differential Diagnosis Differential Diagnosis: Symptomatic bradycardia versus medication side effect versus metabolic abnormality Medical Records Medical records reviewed: Yes I reviewed the patient's medical records. Lab Data Result diagrams: 07/02/18 11:20 07/02/18 11:20 Lab Results 12/15/18 12/15/18 Range/Units 11:20 11:20 WBC 9.1 (4.0-11.0) th/mm3 RBC 4.76 (4.00-5.30) mil/mm3 Hgb 16.1 H (11.6-15.3) gm/dL Hct 44.7 (35.0-46.0) % MCV 93.9 (80.0-100.0) fL MCH 33.8 (27.0-34.0) pg MCHC 36.0 (32.0-36.0) % RDW 14.1 (11.6-17.2) % Plt Count 327 (150-450) th/mm3 MPV 8.4 (7.0-11.0) fL Prelim Diff (Auto) Manual diff required WBC Differential Manual diff final Seg Neuts % (Manual) 58 (16-70) % Band Neuts % (Manual) 3 (0-6) % Lymphocytes % (Manual) 19 (9-44) % Monocytes % (Manual) 14 H (0-8) % Eosinophils % (Manual) 3 (0-4) % Basophils % (Manual) 2 (0-2) % Myelocytes % (Man) 1 H (0-0) % Abs Neuts (Manual) 5.6 (1.8-7.7) th/mm3 Differential Comment . Platelet Estimate Normal (Normal) Platelet Morphology Normal (Normal) Sodium 132 L (136-145) meq/L Potassium 4.0 (3.5-5.1) meq/L Chloride 99 (98-107) meq/L Carbon Dioxide 23.9 (21.0-32.0) meq/L Anion Gap 9 (5-15) meq/L BUN 23 H (7-18) mg/dL Creatinine 1.29 H (0.50-1.00) mg/dL Estimated GFR 40 L (>89) mL/min Random Glucose 146 H (74-106) mg/dL Calcium 8.1 L (8.5-10.1) mg/dL Total Bilirubin 0.6 (0.2-1.0) mg/dL AST 45 H (15-37) U/L ALT 43 (10-53) U/L Alkaline Phosphatase 83 (45-117) U/L Total Protein 6.5 (6.4-8.2) g/dL Albumin 3.3 L (3.4-5.0) g/dL Discharge Plan Discharge Disposition Patient Disposition: ED Admit(ED Internal Use Only) Discharge Order Discharge Orders: ED Use Only Admit Order (Routine); Ordered 07/02/18 Ordered By: Padma Nguyen Discharge Details Diagnosis: Symptomatic bradycardia Physicians Team ED Provider: Sheryl Valencia ED Midlevel Provider: Padma Nguyen Primary Care Provider: Junior Quinonez Attending Provider: Oliver Wilson ED Status: Admitted Observation Patient
[2018-07-02 11:39] LABS: Hematocrit 44.7 % (35.0-46.0); Hemoglobin 16.1 gm/dL (11.6-15.3); Mean Corpuscular Hemoglobin 33.8 pg (27.0-34.0); Mean Corpuscular Volume 93.9 fL (80.0-100.0); Mean Platelet Volume 8.4 fL (7.0-11.0); Platelet Count 327 th/mm3 (150-450); Red Blood Count 4.76 mil/mm3 (4.00-5.30); Red Cell Distribution Width 14.1 % (11.6-17.2); White Blood Count 9.1 th/mm3 (4.0-11.0)
[2018-07-02 12:06] LABS: Eosinophils 3 % (0-4); Lymphocytes 19 % (9-44); Monocytes 14 % (0-8); Myelocytes 1 % (0-0); Platelet Estimate Normal (Normal); Platelet Morphology Normal (Normal)
[2018-07-02 12:39] LABS: Alanine Aminotransferase 43 U/L (10-53); Albumin 3.3 g/dL (3.4-5.0); Anion Gap 9 meq/L (5-15); Aspartate Aminotransferase 45 U/L (15-37); Blood Urea Nitrogen 23 mg/dL (7-18); Calcium 8.1 mg/dL (8.5-10.1); Carbon Dioxide 23.9 meq/L (21.0-32.0); Chloride 99 meq/L (98-107); Glomerular Filtration Rate 40 mL/min (>89); Glucose,Random 146 mg/dL (74-106); Sodium 132 meq/L (136-145)
[2018-07-02 12:41] LABS: Alkaline Phosphatase 83 U/L (45-117); Total Protein 6.5 g/dL (6.4-8.2)
[2018-07-02] MEDS ORDERED: Sodium Chlor 0.9% Inj 500 ML IV.SIG ONE (12:52)
--- NOTE | 2018-07-02 12:58 | P.HPFP ---
History of Present Illness Primary Care Physician: Junior Quinonez MD <Oliver Wilson - 07/02/18 15:14> Junior Quinonez MD <Erwin Webster - 07/02/18 12:58> History of Present Illness: 83-year-old female presenting to the emergency room with dizziness associated with bradycardia. She states that she has had several episodes of dizziness/ lightheadedness over the last 2 weeks and her Fitbit is registering heart rates in the 40s with these episodes. She has not lost consciousness. She does have a history of atrial fibrillation and she is treated with metoprolol and amiodarone. <Oliver Wilson - 07/02/18 15:14> 83 yo F with a PMH of Afib, hypothyroidism, anxiety and HTN presented to the ER with dizziness. She states that for the last 2 weeks has had dizziness/ lightheadedness/"fainting like feeling", her normal HR is in the 60's but it was registering in the 40's on her fitbit when these episodes occurred. They have been occurring every 5-10 minutes and last roughly 60 seconds. No chest pain, SOB but does state it is hard to take a deep breath when these episodes occur. No changes in vision or headache, no sensation of the room spinning or her spinning in the room. Episodes occur regardless of sitting or standing. Has no LOC, no falls/head injuries. She is feeling anxious and takes alprazolam twice daily. Chronic dry cough/sneezing due to allergies but no fevers, no sore throat, no abdominal pain/blood in stool, no localized weakness or change in sensation, no change in urinary frequency, dysuria, hematuria. Has not had any medication changes but she was started on potassium PO 3 months ago. Has never had MS or stroke PMH: Afib (4 ablations), Hypothyroidism, anxiety, HTN Surgical history: both hips replaced 7 years ago, hysterectomy Family Hx: DM, heart disease Allergies: Latex, sulfa drugs, paroxetine, cefaclor Social: Lives in a house with her , from [place] originally but now lives in [place]. Has 2 children (one ). No alcohol, no tobacco, no drugs Would want her as a health care surrogate <Erwin Webster - 07/02/18 14:38> - Diagnosis (1) Symptomatic bradycardia (2) Afib (3) Hypertension (4) Hypothyroid (5) Anxiety <Oliver Wilson 07/02/18 15:14> (1) Symptomatic bradycardia (2) Afib (3) Hypertension (4) Hypothyroid (5) Anxiety <Erwin Webster [facility] 07/02/18 14:31> Review of Systems All other systems reviewed negative except as stated in HPI <Erwin Webster [facility] 07/02/18 13:17> PMF - History History Provided By: Patient <Erwin Webster [facility] 07/02/18 12:58> - Medical History Medical History: Medical History (Last Reviewed 07/02/18 @ 10:45 by Angela Smith) Afib HTN (hypertension) History of hysterectomy Hypothyroid <Oliver Wilson 07/02/18 15:14> Medical History (Last Reviewed 07/02/18 @ 10:45 by Anegla Smith) Afib HTN (hypertension) History of hysterectomy Hypothyroid <Erwin Webster [facility] 07/02/18 12:58> - Surgical History Surgical History: Surgical History (Last Reviewed 07/02/18 @ 10:45 by Angela Smith) History of hip replacement History of radiofrequency ablation procedure for cardiac arrhythmia <Oliver Wilson 07/02/18 15:14> Surgical History (Last Reviewed 07/02/18 @ 10:45 by Angela Smith) History of hip replacement History of radiofrequency ablation procedure for cardiac arrhythmia <Erwin Webster [facility] 07/02/18 12:58> - Family History Family History: Family History (Last Updated 05/18/18 @ 15:07 by Blake Graham MD) Other CAD (coronary artery disease) Diabetes <Oliver Wilson 07/02/18 15:14> Family History (Last Updated 05/18/18 @ 15:07 by Blake Graham MD) Other CAD (coronary artery disease) Diabetes <Erwin Webster [facility] 07/02/18 12:58> - Tobacco History Second Hand Smoke Exposure: No <Erwin Webster [facility] 07/02/18 12:58> Tobacco Use In Past 30 Days: No <Erwin Webster [facility] 07/02/18 12:58> Smoking Status: Never smoker <Erwin Webster [facility] 07/02/18 12:58> Tobacco Type: Cigarettes <Erwin Webster [facility] 07/02/18 12:58> - Alcohol History How Often Do You Have a Drink Containing Alcohol: Monthly or less <Erwin Webster [facility] 07/02/18 12:58> - Substance Use History Substance History: No History of Abuse <Erwin Webster [facility] 07/02/18 12:58> - Travel History Recent Travel in the [facility] Within the Last 8 Weeks: No <Erwin Webster [facility] 07/02 12:58> Recent Travel Out of the Country Within the Last 8 Weeks: No <Erwin Webster [facility] 07/02/18 12:58> - Immunization History Tetanus Immunization: Unsure <Erwin Webster [facility] 07/02/18 12:58> Medications and Allergies Allergies Allergy/AdvReac Type Severity Reaction Status Date / Time cefaclor Allergy Severe RASH Verified 07/02/18 10:47 paroxetine Allergy Severe Rash Verified 07/02/18 10:47 Sulfa (Sulfonamide Allergy Severe RASH Verified 07/02/18 10:47 Antibiotics) ciprofloxacin Allergy Unknown GI UPSET Verified 07/02/18 10:47 clonidine Allergy Unknown SKIN Verified 07/02/18 10:47 IRRITATION latex bandages AdvReac Mild SKIN Uncoded 07/02/18 10:47 REDNESS, RASH <Oliver Wilson - 07/02/18 15:14> Home Medications Medication Instructions Recorded Confirmed Type alprazolam 0.25 mg PO BID PRN 05/18/18 07/02/18 History amiodarone 200 mg PO DAILY 05/18/18 07/02/18 History amlodipine 10 mg PO DAILY 05/18/18 07/02/18 History apixaban [Eliquis] 5 mg PO BID 05/18/18 07/02/18 History estradiol 0.5 mg PO WEEKLY 05/18/18 07/02/18 History hydrochlorothiazide 12.5 mg PO DAILY 05/18/18 07/02/18 History levothyroxine 50 mcg PO DAILY 05/18/18 07/02/18 History potassium chloride 20 meq PO DAILY 05/18/18 07/02/18 History ramipril 10 mg PO QID 05/18/18 07/02/18 History <Oliver Wilson - 07/02/18 15:14> Active Medications: Active Medications Acetaminophen (Tylenol) 650 mg PO Q4H PRN PRN Reason: Temp > 100.4 Al Hydroxide/Mg Hydroxide (Milk Of Magnesia Liq) 30 ml PO Q12H PRN PRN Reason: Mild Constipation Alprazolam (Xanax) 0.25 mg PO BID PRN PRN Reason: Anxiety Amiodarone HCl (Cordarone) 200 mg PO DAILY [facility] Amlodipine Besylate (Norvasc) 10 mg PO DAILY ERIK Apixaban (Eliquis) 5 mg PO BID ERIK Bisacodyl (Dulcolax Supp) 10 mg RECTAL DAILY PRN PRN Reason: SEVERE CONSITIPATION Hydrochlorothiazide (Microzide) 12.5 mg PO DAILY ERIK Lactulose (Lactulose Liq) 30 ml PO DAILY PRN PRN Reason: SEVERE CONSITIPATION Levothyroxine Sodium (Synthroid) 50 mcg PO DAILY@0600 ERIK Non-Formulary Medication (Ramipril [Ramipril]) 20 mg PO BID [facility] Ondansetron HCl (Zofran Inj) 4 mg IV.PUSH Q6H PRN PRN Reason: NAUSEA OR VOMITING Potassium Chloride (K-Dur) 20 meq PO DAILY [facility] Senna/Docusate Sodium (Magdalena-Colace) 1 tab PO BID [facility] Sennosides (Senokot) 17.2 mg PO Q12H PRN PRN Reason: Moderate Constipation Sodium Chloride (Ns Flush) 2 ml IV.FLUSH PRN PRN PRN Reason: FLUSH AFTER USING IV ACCESS Sodium Chloride (Ns Flush) 2 ml IV.FLUSH BID ERIK Sodium Chloride (Ns Flush) 2 ml IV.FLUSH PRN PRN PRN Reason: FLUSH AFTER USING IV ACCESS <Oliver Wilson - 07/02/18 15:14> Active Medications Sodium Chloride (Ns Flush) 2 ml IV.FLUSH PRN PRN PRN Reason: FLUSH AFTER USING IV ACCESS <Erwin Webster - 07/02/18 12:58> Exam Vital signs: Vital Signs 07/02/18 10:44 07/02/18 10:54 07/02/18 13:38 Temperature 97.8 F Pulse Rate 56 L 47 L Respiratory Rate 18 18 Blood Pressure 154/67 H 158/72 H Pulse Oximetry 98 98 98 Intake & Output 07/01/18 07/02/18 07/02/18 18:59 06:59 18:59 Weight 68.039 kg <KatieOliver - 07/02/18 15:14> Vital Signs 07/02/18 10:44 07/02/18 10:54 Temperature 97.8 F Pulse Rate 56 L 47 L Respiratory Rate 18 18 Blood Pressure 154/67 H 158/72 H Pulse Oximetry 98 98 Intake & Output 07/01/18 07/02/18 07/02/18 18:59 06:59 18:59 Weight 68.039 kg <Erwin Webster - 07/02/18 12:58> Narrative: GENERAL: Elderly female laying in bed, appears comfortable but is anxious CARDIOVASCULAR: Regular rate and rhythm in the 70s on the monitor RESPIRATORY: No accessory muscle use. Clear to auscultation. Breath sounds equal bilaterally. MUSCULOSKELETAL: Extremities without clubbing, cyanosis, or edema. No obvious deformities. NEUROLOGICAL: Awake and alert. PSYCHIATRIC: Appropriate mood and affect; insight and judgment normal. <Oliver Wilson - 07/02/18 15:14> GENERAL: Elderly female laying flat in bed in NAD. Answering questions appropriately, speaking in full sentences SKIN: Warm and dry. HEAD: Atraumatic. Normocephalic. EYES: Pupils equal and round. No scleral icterus. No injection or drainage. ENT: No nasal bleeding or discharge. Mucous membranes pink and moist. NECK: Trachea midline. No JVD. CARDIOVASCULAR: Bradycardic to the 40's, regular rhythm. no murmurs appreciated RESPIRATORY: No accessory muscle use. Clear to auscultation. Breath sounds equal bilaterally. GASTROINTESTINAL: Abdomen soft, non-tender, nondistended. Hepatic and splenic margins not palpable. MUSCULOSKELETAL: Extremities without clubbing, cyanosis, or edema. No obvious deformities. NEUROLOGICAL: Awake and alert. No obvious cranial nerve deficits. Motor grossly within normal limits. Normal speech. PSYCHIATRIC: Appropriate mood and affect; insight and judgment normal. <Erwin Webster - 07/02/18 14:38> Results - Labs Result diagrams: 07/02/18 11:20 07/02/18 11:20 <Katie,Oliver - 07/02/18 15:14> Abnormal lab results 07/02/18 07/02/18 Range/Units 11:20 11:20 Hgb 16.1 H (11.6-15.3) gm/dL Monocytes % (Manual) 14 H (0-8) % Myelocytes % (Man) 1 H (0-0) % Sodium 132 L (136-145) meq/L BUN 23 H (7-18) mg/dL Creatinine 1.29 H (0.50-1.00) mg/dL Estimated GFR 40 L (>89) mL/min Random Glucose 146 H (74-106) mg/dL Calcium 8.1 L (8.5-10.1) mg/dL AST 45 H (15-37) U/L Albumin 3.3 L (3.4-5.0) g/dL Short CBC 07/02/18 Range/Units 11:20 WBC 9.1 (4.0-11.0) th/mm3 Hgb 16.1 H (11.6-15.3) gm/dL Hct 44.7 (35.0-46.0) % Plt Count 327 (150-450) th/mm3 BMP 07/02/18 11:20 Sodium 132 L Potassium 4.0 Chloride 99 Carbon Dioxide 23.9 BUN 23 H Creatinine 1.29 H Calcium 8.1 L Liver Function 07/02/18 Range/Units 11:20 Total Bilirubin 0.6 (0.2-1.0) mg/dL AST 45 H (15-37) U/L ALT 43 (10-53) U/L Alkaline Phosphatase 83 (45-117) U/L Albumin 3.3 L (3.4-5.0) g/dL <Oliver Wilson - 07/02/18 15:14> Abnormal lab results 07/02/18 07/02/18 Range/Units 11:20 11:20 Hgb 16.1 H (11.6-15.3) gm/dL Monocytes % (Manual) 14 H (0-8) % Myelocytes % (Man) 1 H (0-0) % Sodium 132 L (136-145) meq/L BUN 23 H (7-18) mg/dL Creatinine 1.29 H (0.50-1.00) mg/dL Estimated GFR 40 L (>89) mL/min Random Glucose 146 H (74-106) mg/dL Calcium 8.1 L (8.5-10.1) mg/dL AST 45 H (15-37) U/L Albumin 3.3 L (3.4-5.0) g/dL Short CBC 07/02/18 Range/Units 11:20 WBC 9.1 (4.0-11.0) th/mm3 Hgb 16.1 H (11.6-15.3) gm/dL Hct 44.7 (35.0-46.0) % Plt Count 327 (150-450) th/mm3 [facility] 07/02/18 11:20 Sodium 132 L Potassium 4.0 Chloride 99 Carbon Dioxide 23.9 BUN 23 H Creatinine 1.29 H Calcium 8.1 L Liver Function 07/02/18 Range/Units 11:20 Total Bilirubin 0.6 (0.2-1.0) mg/dL AST 45 H (15-37) U/L ALT 43 (10-53) U/L Alkaline Phosphatase 83 (45-117) U/L Albumin 3.3 L (3.4-5.0) g/dL <Erwin Webster - 07/02/18 12:58> Caprini VTE Risk Assessment Zenrini VTE Risk Assessment: Moderate/High Risk (score >= 2) <Erwin Webster - 07/02/18 14:13> Marla Risk Assessment Model: Point Value = 1 Point Value = 2 Point Value = 3 Point Value = 5 Age 41-60 Minor surgery BMI > 25 kg/m2 Swollen legs Varicose veins or History of unexplained or recurrent spontaneous Oral contraceptives or hormone replacement Sepsis (< 1 month) Serious lung disease, including pneumonia (< 1 month) Abnormal pulmonary function Acute myocardial infarction Congestive heart failure (< 1 month) History of inflammatory bowel disease Medical patient at bed rest Age 61-74 Arthroscopic surgery Major open surgery (> 45 min) Laparoscopic surgery (> 45 min) Malignancy Confined to bed (> 72 hours) Immobilizing plaster cast Central venous access Age >= 75 History of VTE Family history of VTE Factor V Leiden Prothrombin [id number] Lupus anticoagulant Anticardiolipin antibodies Elevated serum homocysteine Heparin-induced thrombocytopenia Other congenital or acquired thrombophilia Stroke (< 1 month) Elective arthroplasty Hip, pelvis, or leg fracture Acute spinal cord injury (< 1 month) <Oliver Wilson 07/02/18 15:14> Point Value = 1 Point Value = 2 Point Value = 3 Point Value = 5 Age 41-60 Minor surgery BMI > 25 kg/m2 Swollen legs Varicose veins or History of unexplained or recurrent spontaneous Oral contraceptives or hormone replacement Sepsis (< 1 month) Serious lung disease, including pneumonia (< 1 month) Abnormal pulmonary function Acute myocardial infarction Congestive heart failure (< 1 month) History of inflammatory bowel disease Medical patient at bed rest Age 61-74 Arthroscopic surgery Major open surgery (> 45 min) Laparoscopic surgery (> 45 min) Malignancy Confined to bed (> 72 hours) Immobilizing plaster cast Central venous access Age >= 75 History of VTE Family history of VTE Factor V Leiden Prothrombin [id number] Lupus anticoagulant Anticardiolipin antibodies Elevated serum homocysteine Heparin-induced thrombocytopenia Other congenital or acquired thrombophilia Stroke (< 1 month) Elective arthroplasty Hip, pelvis, or leg fracture Acute spinal cord injury (< 1 month) <Erwin Webster - 07/02/18 12:58> Prophylaxis Regimen: Total Risk Factor Score Risk Level Prophylaxis Regimen 0-1 Low Early ambulation 2 Moderate Order ONE of the following: *Sequential Compression Device (SCD) *Heparin 5000 units SQ BID 3-4 Higher Order ONE of the following medications: *Heparin 5000 units SQ TID *Enoxaparin/Lovenox 40 mg SQ daily (WT < 150 kg, CrCl > 30 mL/min) *Enoxaparin/Lovenox 30 mg SQ daily (WT < 150 kg, CrCl > 10-29 mL/min) *Enoxaparin/Lovenox 30 mg SQ BID (WT < 150 kg, CrCl > 30 mL/min) AND/OR *Sequential Compression Device (SCD) 5 or more Highest Order ONE of the following medications: *Heparin 5000 units SQ TID (Preferred with Epidurals) *Enoxaparin/Lovenox 40 mg SQ daily (WT < 150 kg, CrCl > 30 mL/min) *Enoxaparin/Lovenox 30 mg SQ daily (WT < 150 kg, CrCl > 10-29 mL/min) *Enoxaparin/Lovenox 30 mg SQ BID (WT < 150 kg, CrCl > 30 mL/min) AND *Sequential Compression Device (SCD) <Oliver Wilson - 07/02/18 15:14> Total Risk Factor Score Risk Level Prophylaxis Regimen 0-1 Low Early ambulation 2 Moderate Order ONE of the following: *Sequential Compression Device (SCD) *Heparin 5000 units SQ BID 3-4 Higher Order ONE of the following medications: *Heparin 5000 units SQ TID *Enoxaparin/Lovenox 40 mg SQ daily (WT < 150 kg, CrCl > 30 mL/min) *Enoxaparin/Lovenox 30 mg SQ daily (WT < 150 kg, CrCl > 10-29 mL/min) *Enoxaparin/Lovenox 30 mg SQ BID (WT < 150 kg, CrCl > 30 mL/min) AND/OR *Sequential Compression Device (SCD) 5 or more Highest Order ONE of the following medications: *Heparin 5000 units SQ TID (Preferred with Epidurals) *Enoxaparin/Lovenox 40 mg SQ daily (WT < 150 kg, CrCl > 30 mL/min) *Enoxaparin/Lovenox 30 mg SQ daily (WT < 150 kg, CrCl > 10-29 mL/min) *Enoxaparin/Lovenox 30 mg SQ BID (WT < 150 kg, CrCl > 30 mL/min) AND *Sequential Compression Device (SCD) <Erwin Webster - 07/02/18 12:58> Assessment and Plan - Assessment (1) Symptomatic bradycardia Code(s): R00.1 - Bradycardia, unspecified Status: Acute (2) Afib Code(s): I48.91 - Unspecified atrial fibrillation Status: Acute (3) Hypertension Code(s): I10 - Essential (primary) hypertension Status: Acute (4) Hypothyroid Code(s): E03.9 - Hypothyroidism, unspecified Status: Acute (5) Anxiety Code(s): F41.9 - Anxiety disorder, unspecified Status: Acute <Oliver Wilson - 07/02/18 15:14> (1) Symptomatic bradycardia Code(s): R00.1 - Bradycardia, unspecified Status: Acute Plan: Presented with 2 week history of episodes of dizziness, lightheadedness No syncopal episodes, changes in vision, chest pain Heart rate noted to be in the 40s during these episodes, as low as the 30s today on admission Spoke with the study abroad advisor who recommends that patient hold home metoprolol and follow-up with cardiology as an outpatient (2) Afib Code(s): I48.91 - Unspecified atrial fibrillation Status: Acute Plan: Currently in sinus rhythm and bradycardic Continue amiodarone, hydrochlorthiazide but hold metoprolol until seen by study abroad advisor Continue Eliquis (3) Hypertension Code(s): I10 - Essential (primary) hypertension Status: Acute Plan: Normotensive on admission Continue home amlodipine, hydrochlorothiazide, ramipril and hold metoprolol (4) Hypothyroid Code(s): E03.9 - Hypothyroidism, unspecified Status: Acute Plan: Continue levothyroxine May want to consider TSH as an outpatient as her thyroid function may be a component (5) Anxiety Code(s): F41.9 - Anxiety disorder, unspecified Status: Acute Plan: Continue home alprazolam <Erwin Webster - 07/02/18 14:31> - Assessment and Plan 83-year-old lady with history of A. fib, hypertension, hypothyroidism presented with episodes of lightheaded/dizziness. Found to be bradycardic to 30s and 40s. Suspect symptomatic bradycardia. Cardiology recommending she hold her metoprolol and follow-up as an outpatient. Otherwise continue all of her home medications. <Erwin Webster - 07/02/18 14:38> - Attending Attestation Patient examined independently of resident physicians, case discussed with resident physicians I have read the above note and agree with the assessment/plan as discussed with me I was involved in all medical decision making for this patient Symptomatic bradycardia: Likely due to medication with metoprolol Patient seen by study abroad advisor Dr. John who recommends discontinuation of metoprolol Patient to follow-up with cardiology as outpatient Patient recently had TIA workup in 05/18/18 including imaging of the head and carotid Doppler studies that were all within normal limits Oliver Wilson MD <Oliver Wilson - 07/02/18 15:14>
[2018-07-02] MEDS ORDERED: Acetaminophen 325 MG Tablet PO PRN (13:29)
[2018-07-02] MEDS ORDERED: Bisacodyl 10 MG Supp RECTAL PRN (13:29)
[2018-07-02] MEDS ORDERED: ALPRAZolam 0.25 MG Tablet PO ONE (14:00)
--- NOTE | 2018-07-02 15:17 | MB ---
cc: Delmer Langford MD DATE: 07/02/2018 REASON FOR CONSULTATION: Bradycardia. HISTORY OF PRESENT ILLNESS: The patient is a very pleasant, though very anxious 83-year-old woman who has a history of atrial fibrillation, status post multiple ablations by Dr. Rincon who is currently on metoprolol and amiodarone. The patient does have self-described high anxiety and anxiety attacks and was looking at her Fitbit and found her heart rate to be in the 40s. This is low for her, and she describes some weakness, though no syncope or even presyncopal symptoms. After speaking with her, it does seem she was mostly concerned by the actual vitals she was seeing as opposed to any specific symptom. She presented to [facility] where she has had some resting heart rates in the upper 30s to low 40s, but now is in the 60s, and she is asymptomatic with no chest pain, lightheadedness, dizziness or syncope. PAST MEDICAL HISTORY: 1. Atrial fibrillation, status post multiple ablation. 2. Anxiety. CURRENT MEDICATIONS: 1. Xanax. 2. Amiodarone. 3. Norvasc. 4. Eliquis 5 mg b.i.d. 5. Lactulose. (Metoprolol was being taken b.i.d. at home). ALLERGIES: MULTIPLE. PLEASE SEE THE CHART. PHYSICAL EXAMINATION: VITAL SIGNS: Afebrile, pulse 60, respiratory rate 18, BP 115/70, saturating 98. GENERAL: Pleasant, though clearly anxious woman in no distress. NECK: No JVD. LUNGS: Clear to auscultation bilaterally. CARDIOVASCULAR: Regular rate and rhythm. No murmur appreciated. ABDOMEN: Benign. EXTREMITIES: No edema. LABORATORY DATA: White count 9.1, hematocrit 44.7, platelets 327. Sodium 132, potassium 4.0, chloride 99, bicarbonate 23.9, BUN 23, creatinine 1.29, glucose 146. EKG shows a sinus bradycardia at 47, with diffuse T-wave changes. Stress test from 10/06/2012 showed no significant ischemia. ASSESSMENT AND PLAN: 1. Bradycardia. The patient had bradycardia likely due to her beta ramesh and amiodarone. She has no ischemic symptoms and really after speaking with her, not much in the way of any symptoms except for anxiety after seeing her heart rate. She is feeling completely asymptomatic now, her heart rate is in the 60s and she does wish to be discharged home. I think this is reasonable. She will stop her metoprolol and talk with Dr. Rincon next week. 2. Abnormal EKG, the patient's EKG is somewhat more abnormal than her EKG, I see in the chart a year ago. However, her medications have changed and she has had a nonischemic nuclear stress test in the past. She has no chest pain or other ischemic symptoms. I think this can be worked up as an outpatient, given lack of any significant symptoms. Since the patient wants to go and there are no acute findings, I think she can be discharged home to follow up with Dr. Rincon next week. Thank you again for the opportunity to participate in this patient's care. MD SILVIO Maloney/rubin , 02:18 PM , 02:26 PM
--- NOTE | 2018-07-02 19:20 | ECG ---
Date Performed: 07/02/2018 Time Performed: 10:57:09 PTAGE: 83 years EKG: RHYTHM IS REGULAR, NO P WAVES ARE SEEN, THIS IS LIKELY A JUNCTIONAL RHYTHM POSSIBLE RIGHT V ENTRICULAR CONDUCTION DELAY NONSPECIFIC T-WAVE ABNORMALITY Compared to previous tracing, junctional r hythm is new ABNORMAL RHYTHM ECG NO PREVIOUS TRACING DOCTOR: Robert Lopez Interpretating Date/Time 07/02/2018 19:19:29
[2018-07-02] MEDS ORDERED: Senna/Docusate Sodium 8.6/50 MG Tablet PO SCH (21:00)
[2018-07-02] MEDS ORDERED: RAMIPRIL 20 MG PO SCH (21:00)
[2018-07-02] MEDS ORDERED: ALPRAZolam 0.25 MG Tablet PO PRN (21:00)
[2018-07-03] MEDS ORDERED: Levothyroxine 50 MCG Tablet PO SCH (06:00)
[2018-07-03] MEDS ORDERED: Amiodarone 200 MG Tablet PO SCH (09:00)
[2018-07-03] MEDS ORDERED: amLODIPine 10 MG Tablet PO SCH (09:00)
== END 2018-07-02 20:50 | disposition home or self-care (01) ==
LOC: NEDA 10:42 → NEPE 10:42 → NEDA 20:49
PROVIDERS: ADMIT Family Medicine; ATTEND Family Medicine
DX: I48.91 Unspecified atrial fibrillation; R53.1 Weakness; R42 Dizziness and giddiness; E03.9 Hypothyroidism, unspecified; Z79.890 Hormone replacement therapy; R00.1 Bradycardia, unspecified; R00.2 Palpitations; Z79.899 Other long term (current) drug therapy; F41.1 Generalized anxiety disorder; Z82.49 Family history of ischemic heart disease and other diseases of the circulatory system; Z79.01 Long term (current) use of anticoagulants; I10 Essential (primary) hypertension

== ENCOUNTER 2018-07-04 08:59 | Observation (INO) ==
[2018-07-04] MEDS ORDERED: Sodium Chlor 0.9% Inj 500 ML IV.SIG SCH (10:00)
--- NOTE | 2018-07-04 10:12 | ED ---
HPI General Chief complaint: Weakness Stated complaint: Heart Complaint Time Seen by Provider: 07/04/18 09:24 Source: patient Mode of arrival: ambulatory Limitations: no limitations History of Present Illness HPI Narrative: 83 yo F was discharged from [facility] two days prior following admission for symptomatic bradycardia. Pt advised to discontinue metoprolol by Dr Langford. Pt reports that upon leaving hospital and walking to car at time of discharge she developed palpitations and had to take a break. Upon returning home, pt was ok until yesterday with dyspnea and palpitations became increasingly noticeable. Overnight palpitations were uncomfortable and associated with diaphoresis and patient took a dose of metoprolol at about 2: 00AM. No CP. Normally exercise tolerance is limited by musculoskeletal pain according to patient. PT also wonders if she may be very anxious. Diaphoresis overnight last night reported, which is unusual for patient. Related Data Home Medications Medication Instructions Recorded Confirmed alprazolam 0.25 mg PO BID PRN 05/18/18 07/04/18 amiodarone 200 mg PO DAILY 05/18/18 07/04/18 amlodipine 10 mg PO DAILY 05/18/18 07/04/18 apixaban [Eliquis] 5 mg PO BID 05/18/18 07/04/18 estradiol 0.5 mg PO WEEKLY 05/18/18 07/04/18 hydrochlorothiazide 12.5 mg PO DAILY 05/18/18 07/04/18 levothyroxine 50 mcg PO DAILY 05/18/18 07/04/18 potassium chloride 20 meq PO DAILY 05/18/18 07/04/18 ramipril 10 mg PO QID 05/18/18 07/04/18 metoprolol tartrate 25 mg PO BID 07/04/18 07/04/18 Allergies Allergy/AdvReac Type Severity Reaction Status Date / Time cefaclor Allergy Severe RASH Verified 07/04/18 09:33 paroxetine Allergy Severe Rash Verified 07/04/18 09:33 Sulfa (Sulfonamide Allergy Severe RASH Verified 07/04/18 09:33 Antibiotics) ciprofloxacin Allergy Unknown GI UPSET Verified 07/04/18 09:33 clonidine Allergy Unknown SKIN Verified 07/04/18 09:33 IRRITATION latex bandages AdvReac Mild SKIN Uncoded 07/02/18 10:47 REDNESS, RASH Review of Systems ROS: all other systems reviewed are negative [facility] Family History Family History Other CAD (coronary artery disease) Diabetes Social History Social History Substance History: No History of Abuse Second Hand Smoke Exposure: No Smoking Status: Never smoker Tobacco Type: Cigarettes How Often Do You Have a Drink Containing Alcohol: Never Recent Travel in [facility] within the Last 8 Weeks: No Recent Out of Country Travel within the Last 8 Weeks: No Immunization History Tetanus Immunization: >5 Years Exam Narrative Exam Narrative: GENERAL: 83 yo F, WNWD, mildly anxious, mild distress 2/2 dyspnea and/or tachycardia SKIN: Focused skin assessment warm/dry. HEAD: Atraumatic. Normocephalic. EYES: Pupils equal and round. No scleral icterus. No injection or drainage. ENT: No nasal bleeding or discharge. Mucous membranes pink and moist. NECK: Trachea midline. No JVD. CARDIOVASCULAR: Rate approx 100-110. Irregular. RESPIRATORY: Tachypnea. Lungs clear. Rate approx 24 bpm. GASTROINTESTINAL: Abdomen soft, non-tender, nondistended. Hepatic and splenic margins not palpable. MUSCULOSKELETAL: No obvious deformities. No clubbing. No cyanosis. No edema. NEUROLOGICAL: Awake and alert. No obvious cranial nerve deficits. Motor grossly within normal limits. Normal speech. PSYCHIATRIC: Appropriate mood and affect; insight and judgment normal. Course Initial Documented Vital Signs Temperature 97.3 F L 07/04/18 09:10 Pulse Rate 113 H 07/04/18 09:10 Respiratory Rate 20 07/04/18 09:10 Blood Pressure 135/84 07/04/18 09:10 Pulse Oximetry 97 07/04/18 09:10 Last Documented Vital Signs Temperature 97.3 F L 07/04/18 09:10 Pulse Rate 92 H 07/04/18 12:06 Respiratory Rate 16 07/04/18 12:06 Blood Pressure 109/77 07/04/18 12:06 Pulse Oximetry 99 07/04/18 12:06 Medical Decision Making MDM Narrative Medical decision making narrative: EKG rate approximately 105, irregular, incomplete RBBB, TWI presnet multiple leads. TWI are stable from 07/02/18 however new compared to 05/18/18. CBC essentially unremarkable CMP essentially unremarkable Tn < 0.02 UA no UTI TSH 4.480 Pt received 10mg IV diltiazem here and HR decreased to 80s from 100-110. Significant subjective improvement reported however pt ambulated to bathroom and began to feel palpitations and a generalized sensation of uneasiness. Still patient reports feeling better. Prior to arrival here patient took Xanax at home 0.25mg. Symptoms may be related to Xanax with an element of rebound anxiety present. Call to [facility] at 1130AM. Case d/w Dr Marie at 1220PM. Medical Screen Exam Complete: Yes Emergency Medical Condition: Yes Lab Data Result diagrams: 07/04/18 10:05 07/04/18 10:05 Lab Results 07/04/18 07/04/18 07/04/18 Range/Units 10:05 10:05 10:19 WBC 7.5 (4.0-11.0) th/mm3 RBC 5.17 (4.00-5.30) mil/mm3 Hgb 17.3 H (11.6-15.3) gm/dL Hct 47.2 H (35.0-46.0) % MCV 91.2 (80.0-100.0) fL MCH 33.4 (27.0-34.0) pg MCHC 36.6 H (32.0-36.0) % RDW 14.1 (11.6-17.2) % Plt Count 286 (150-450) th/mm3 MPV 7.5 (7.0-11.0) fL Prelim Diff (Auto) Slide review pending Neut % (Auto) 68.1 (16.0-70.0) % Lymph % (Auto) 18.0 (9.0-44.0) % [place] % (Auto) 10.4 H (0.0-8.0) % Eos % (Auto) 2.4 (0.0-4.0) % Baso % (Auto) 1.1 (0.0-2.0) % Neut # (Auto) 5.1 (1.8-7.7) th/mm3 Lymph # (Auto) 1.4 (1.0-4.8) th/mm3 [place] # (Auto) 0.8 (0.0-0.9) th/mm3 Eos # (Auto) 0.2 (0.0-0.4) th/mm3 Baso # (Auto) 0.1 (0.0-0.2) th/mm3 WBC Differential . Diff Scan Auto diff confirmed Differential Comment . Sodium 130 L (136-145) meq/L Potassium 3.6 (3.5-5.1) meq/L Chloride 97 L (98-107) meq/L Carbon Dioxide 21.5 (21.0-32.0) meq/L Anion Gap 12 (5-15) meq/L BUN 23 H (7-18) mg/dL Creatinine 1.41 H (0.50-1.00) mg/dL Estimated GFR 36 L (>89) mL/min Random Glucose 115 H (74-106) mg/dL Calcium 9.5 D (8.5-10.1) mg/dL Magnesium 2.1 (1.5-2.5) mg/dL Total Bilirubin 0.8 (0.2-1.0) mg/dL AST 48 H (15-37) U/L ALT 50 (10-53) U/L Alkaline Phosphatase 103 (45-117) U/L Troponin I Less than 0.02 L (0.02-0.05) ng/mL Total Protein 8.0 D (6.4-8.2) g/dL Albumin 4.0 D (3.4-5.0) g/dL TSH 4.480 H (0.358-3.740) uIU/mL Urine Color Yellow (Yellw/Straw) Urine Clarity Hazy H (Clear) Urine pH 7.0 (5.0-8.5) Ur Specific [place] 1.005 (1.002-1.035) Urine Protein Negative (Neg-Trace) mg/dL Urine Glucose (UA) Negative (Negative) mg/dL Urine Ketones Negative (Negative) mg/dL Urine Occult Blood Negative (Negative) Urine Nitrate Negative (Negative) Urine Bilirubin Negative (Negative) Urine Urobilinogen Less than 2 (Less than 2) mg/dL Ur Leukocyte Esterase Negative (Negative) Urine RBC Less than 1 (0-3) /hpf Urine WBC Less than 1 (0-5) /hpf Ur Squamous Epith Cells 14 (0-5) /hpf Urine Bacteria Rare H (None) /hpf Hyaline Casts 3 (0-3) /lpf Urine Mucus Few H (Occasional) /lpf Micro UA Comment Culture not ind Ur Microscopic Review Not Reportable Urine Culture Comments Culture not ind Imaging Data Radiologist's impression: Chest X-Ray 07/04/18 09:41 CONCLUSION: Minimal parenchymal changes left base . Cardiac silhouette is appropriate Discharge Plan Discharge Disposition Patient Disposition: ED Admit(ED Internal Use Only) Discharge Order Discharge Orders: ED Use Only Admit Order (Routine); Ordered 07/04/18 Ordered By: Froy Frank Physicians Team ED Provider: Froy Frank Primary Care Provider: Junior Quinonez Attending Provider: Naga Navas Discharge Interventions Interventions: Vital Signs Last Done: 07/04/18 12:06 Status ED Status: Admitted Patient
[2018-07-04 10:27] LABS: Baso # (Auto) 0.1 th/mm3 (0.0-0.2); Baso % (Auto) 1.1 % (0.0-2.0); Eos # (Auto) 0.2 th/mm3 (0.0-0.4); Eos % (Auto) 2.4 % (0.0-4.0); Hematocrit 47.2 % (35.0-46.0); Hemoglobin 17.3 gm/dL (11.6-15.3); Lymph # (Auto) 1.4 th/mm3 (1.0-4.8); Mean Corpuscular Hemoglobin 33.4 pg (27.0-34.0); Mean Corpuscular Volume 91.2 fL (80.0-100.0); Mean Platelet Volume 7.5 fL (7.0-11.0); Mono # (Auto) 0.8 th/mm3 (0.0-0.9); Mono % (Auto) 10.4 % (0.0-8.0); Neut # (Auto) 5.1 th/mm3 (1.8-7.7); Neut % (Auto) 68.1 % (16.0-70.0); Platelet Count 286 th/mm3 (150-450); Red Blood Count 5.17 mil/mm3 (4.00-5.30); Red Cell Distribution Width 14.1 % (11.6-17.2); White Blood Count 7.5 th/mm3 (4.0-11.0)
[2018-07-04 10:30] LABS: Mean Corpuscular HGB Conc 36.6 % (32.0-36.0)
[2018-07-04 10:32] LABS: Alanine Aminotransferase 50 U/L (10-53); Anion Gap 12 meq/L (5-15); Aspartate Aminotransferase 48 U/L (15-37); Blood Urea Nitrogen 23 mg/dL (7-18); Calcium 9.5 mg/dL (8.5-10.1); Carbon Dioxide 21.5 meq/L (21.0-32.0); Chloride 97 meq/L (98-107); Glomerular Filtration Rate 36 mL/min (>89); Glucose,Random 115 mg/dL (74-106); Magnesium 2.1 mg/dL (1.5-2.5); Sodium 130 meq/L (136-145)
[2018-07-04 10:44] LABS: Bacteria,Urine Rare /hpf; Bilirubin,Urine Negative (Negative); Clarity,Urine Hazy (Clear); Color,Urine Yellow (Yellw/Straw); Glucose,Urine (UA) Negative (Negative); Hyaline Casts,Urine 3 /lpf (0-3); Leukocyte Esterase,Urine Negative (Negative); Mucus,Urine Few /lpf (Occasional); Nitrite,Urine Negative (Negative); Specific Gravity,Urine 1.005 (1.002-1.035); Squamous Epithelial Cell,Urine 14 /hpf (0-5)
[2018-07-04 10:45] LABS: Alkaline Phosphatase 103 U/L (45-117)
[2018-07-04 10:46] LABS: Potassium 3.6 meq/L (3.5-5.1)
--- NOTE | 2018-07-04 10:58 | XR ---
EXAM DATE: 07/04/2018 10:13 AM EST AGE/SEX: 83 years / Female INDICATIONS: Short of breath, irregular heart beat CLINICAL DATA: This is the patient's initial encounter. Patient reports that signs and symptoms have been present for 1 day and indicates a pain score of 0/10. MEDICAL/SURGICAL HISTORY: . A-fib . cardiac ablation x 4 [place] [facility] [place]. . FINDINGS: Minimal bibasilar parenchymal changes worse on the left the heart is minimally enlarged. Periportal v ascularity is normal. The portion of the bony skeleton visualized is unremarkable. CONCLUSION: Minimal parenchymal changes left base . Cardiac silhouette is appropriate Electronically signed by: Gopi Ashley MD Board Certified Radiologist 07/04/2018 10:57 AM EST
--- NOTE | 2018-07-04 12:43 | P.HPFP ---
History of Present Illness Primary Care Physician: Junior Quinonez MD <Oliver Wilson - 07/04/18 17:02> Junior Quinonez MD <Steve Morales - 07/04/18 12:43> History of Present Illness: 83-year-old female presenting to the emergency department with symptomatic palpitations and tachycardia. She has a history of atrial fibrillation status post 4 ablations who is seen in the emergency department 2 days ago for symptomatic bradycardia with a heart rate in the 30s-40s. Her metoprolol was held and she was given a fluid bolus, with a subsequent increase in her heart rate up to the 70s and resolution of her symptoms. She was discharged home, where she states that she began feeling her heart "racing" with palpitations and skipping beats over the course of the last 2 days. She also endorsed lightheadedness and episodes of diaphoresis. This went on until she took a metoprolol at approximately 02: 30 this morning before presenting to the emergency department due to continued palpitations. Upon arrival to the emergency department, she was found to be in A. fib with a heart rate around 113 -120. She was treated with a dose of Cardizem with subsequent decrease of her heart rate into the 90s and is currently asymptomatic. <Oliver Wilson - 07/04/18 17:02> This patient is an 83-year-old female with history of atrial fibrillation status post 4 ablations who presented to the ED after 3 weeks of feeling like her heart "skipping". Patient previously seen in the ED on Wednesday where she was found to be bradycardic and had her metoprolol discontinued. Upon leaving the hospital patient began to feel like her heart was racing and skipping a beat. Patient reports that the sensation of skipping a beat and heart racing was off and on through Wednesday and into Wednesday. During this time patient also reported having lightheadedness as well as diaphoresis and feeling hot all over. At home she measured her blood pressure to be 185/100 as well as a heart rate of 118 that she reported was irregular. At approximately 0230 this morning patient woke up and decided to take her metoprolol as she spoke with her spray operator before coming to the ED on Wednesday, who told her to resume her metoprolol if she was not feeling well. At approximately 8 AM the patient took a second dose of metoprolol but continued to have palpitations as well as felt very weak throughout all of her body and decided to seek medical attention. She denies any nausea, vomiting, fevers, chills, urinary pain, or dizziness but does endorse rapid breathing. She also endorses 5 years of urinary frequency and constipation. She denies any recent illnesses. PMHx: Hypothyroidism, afib since age 14, anxiety, HTN, Hyperlipidemia Meds: Metoprolol, Xanax, HCTZ 25, amiodarone, amlodipine, Eliquis, estradiol, levothyroxine, potassium chloride, ramipril Family Hx: 4 brothers 3 sister, 1 diabetic brother and sister as well as mother. Father and brother had heart problems. Father at 62 due to [place]. Mother passed at 65 from diabetic complication. Surgeries: Bilateral hip surgeries in 2007, total hysterectomy due to fibroids in 1986. Allergies: Cefaclor, paroxetine, sulfa. cirpo, clonidine, latex. As per EMR as patient cannot remember name of medication. No allergies to foods or environment. Social: Non drinker, last drink at age 57. for 18 years, previously . 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 Lives with in house 1 story. Had 2 children, 1 . Daughter is 59 in good health. Smoked for 10 years at a pack a day. No drugs. Code: Full PCP Dr. Zaid Rincon Cardiology <Steve Morales - 07/04/18 15:27> - Diagnosis (1) Afib (2) Hypertension (3) Hyponatremia (4) SKY (acute kidney injury) (5) Anxiety (6) Hypothyroid <Oliver Wilson - 07/04/18 17:02> (1) Afib (2) Hypertension (3) Hyponatremia (4) SKY (acute kidney injury) (5) Anxiety (6) Hypothyroid <Steve Morales - 07/04/18 15:34> Review of Systems Constitutional: Endorses lightheadedness, denies chills, Denies fever(s), Denies headache(s), Denies dizziness, Eyes: Denies change in vision, Denies double vision, Denies blurry vision Cardiovascular: Endorses rapid heart rate, elevated blood pressure, and chest palpitations. Denies chest pain. Respiratory: Denies shortness of breath or wheezing Gastrointestinal: Endorses constipation, denies abdominal pain, Denies loose stools, Denies nausea, Denies vomiting Genitourinary: Endorses urinary frequency, denies difficulty urinating, Denies painful urination, Denies blood in urine <Steve Morales 07/04/18 15:27> PMFSH - History History Provided By: Patient <MoralesSteve younger 07/04/18 12:43> - Medical History Medical History: Medical History (Last Reviewed 07/04/18 @ 09:31 by Debbie Damico, RN) Afib HTN (hypertension) History of hysterectomy Hypothyroid <Oliver Wilson 07/04/18 17:02> Medical History (Last Reviewed 07/04/18 @ 09:31 by Debbie Damico, RN) Afib HTN (hypertension) History of hysterectomy Hypothyroid <Steve Morales 07/04/18 12:43> - Surgical History Surgical History: Surgical History (Last Reviewed 07/04/18 @ 09:31 by Debbie Damico, RN) History of hip replacement History of radiofrequency ablation procedure for cardiac arrhythmia <Oliver Wilson 07/04/18 17:02> Surgical History (Last Reviewed 07/04/18 @ 09:31 by Debbie Damico, RN) History of hip replacement History of radiofrequency ablation procedure for cardiac arrhythmia <Steve Morales 07/04/18 12:43> - Family History Family History: Family History (Last Updated 05/18/18 @ 15:07 by Blake Graham MD) Other CAD (coronary artery disease) Diabetes <Oliver Wilson 07/04/18 17:02> Family History (Last Updated 05/18/18 @ 15:07 by Blake Graham MD) Other CAD (coronary artery disease) Diabetes <Steve Morales 07/04/18 12:43> - Tobacco History Second Hand Smoke Exposure: No <Steve Morales 07/04/18 12:43> Smoking Status: Never smoker <Steve Morales 07/04/18 12:43> Tobacco Type: Cigarettes <Steve Morales 07/04/18 12:43> - Alcohol History How Often Do You Have a Drink Containing Alcohol: Never <Steve Morales - 07/04 12:43> - Substance Use History Substance History: No History of Abuse <Steve Morales - 07/04/18 12:43> - Travel History Recent Travel in the [facility] Within the Last 8 Weeks: No <Steve Morales - 12:43> Recent Travel Out of the Country Within the Last 8 Weeks: No <Steve Morales - 07/04/18 12:43> - Immunization History Tetanus Immunization: >5 Years <Steve Morales - 07/04/18 12:43> Medications and Allergies Allergies Allergy/AdvReac Type Severity Reaction Status Date / Time cefaclor Allergy Severe RASH Verified 07/04/18 09:33 paroxetine Allergy Severe Rash Verified 07/04/18 09:33 Sulfa (Sulfonamide Allergy Severe RASH Verified 07/04/18 09:33 Antibiotics) ciprofloxacin Allergy Unknown GI UPSET Verified 07/04/18 09:33 clonidine Allergy Unknown SKIN Verified 07/04/18 09:33 IRRITATION latex bandages AdvReac Mild SKIN Uncoded 07/02/18 10:47 REDNESS, RASH <Oliver Wilson - 07/04/18 17:02> Home Medications Medication Instructions Recorded Confirmed Type alprazolam 0.25 mg PO BID PRN 05/18/18 07/04/18 History amiodarone 200 mg PO DAILY 05/18/18 07/04/18 History amlodipine 10 mg PO DAILY 05/18/18 07/04/18 History apixaban [Eliquis] 5 mg PO BID 05/18/18 07/04/18 History estradiol 0.5 mg PO WEEKLY 05/18/18 07/04/18 History hydrochlorothiazide 25 mg PO DAILY 05/18/18 07/04/18 History levothyroxine 50 mcg PO DAILY 05/18/18 07/04/18 History potassium chloride 20 meq PO DAILY 05/18/18 07/04/18 History ramipril 20 mg PO BID 05/18/18 07/04/18 History metoprolol tartrate 25 mg PO BID 07/04/18 07/04/18 History <Oliver Wilson - 07/04/18 17:02> Active Medications: Active Medications Acetaminophen (Tylenol) 650 mg PO Q4H PRN PRN Reason: Temp > 100.4 Al Hydroxide/Mg Hydroxide (Milk Of Magnesia Liq) 30 ml PO Q12H PRN PRN Reason: Mild Constipation Alprazolam (Xanax) 0.25 mg PO BID PRN PRN Reason: Anxiety Amiodarone HCl (Cordarone) 200 mg PO DAILY ERIK Amlodipine Besylate (Norvasc) 10 mg PO DAILY ERIK Apixaban (Eliquis) 5 mg PO BID ERIK Bisacodyl (Dulcolax Supp) 10 mg RECTAL DAILY PRN PRN Reason: SEVERE CONSITIPATION Hydrochlorothiazide (Hydrodiuril) 25 mg PO DAILY ERIK Lactulose (Lactulose Liq) 30 ml PO DAILY PRN PRN Reason: SEVERE CONSITIPATION Levothyroxine Sodium (Synthroid) 50 mcg PO DAILY@0600 ERIK Metoprolol Tartrate (Lopressor) 25 mg PO BID ERIK Ondansetron HCl (Zofran Inj) 4 mg IV.PUSH Q6H PRN PRN Reason: NAUSEA OR VOMITING Potassium Chloride (K-Dur) 20 meq PO DAILY ERIK Sennosides (Senokot) 17.2 mg PO Q12H PRN PRN Reason: Moderate Constipation Sodium Chloride (Ns Flush) 2 ml IV.FLUSH BID ERIK Sodium Chloride (Ns Flush) 2 ml IV.FLUSH UNSCH PRN PRN Reason: FLUSH AFTER USING IV ACCESS <Oliver Wilson - 07/04/18 17:02> Active Medications Sodium Chloride (Ns Flush) 2 ml IV.FLUSH PRN PRN PRN Reason: FLUSH AFTER USING IV ACCESS <Steve Morales - 07/04/18 12:43> Exam Vital signs: Vital Signs 07/04/18 09:10 07/04/18 09:31 07/04/18 10:04 Temperature 97.3 F L Pulse Rate 113 H 98 H 91 H Respiratory Rate 20 23 Blood Pressure 135/84 135/91 H Pulse Oximetry 97 97 100 07/04/18 10:05 07/04/18 11:10 07/04/18 12:06 Temperature Pulse Rate 76 82 92 H Respiratory Rate 13 18 16 Blood Pressure 140/88 109/77 Pulse Oximetry 100 99 07/04/18 12:10 07/04/18 13:05 07/04/18 15:13 Temperature Pulse Rate 103 H 94 H Respiratory Rate 16 15 Blood Pressure 137/95 H 121/78 Pulse Oximetry 99 96 98 Intake & Output 07/03/18 07/04/18 07/04/18 18:59 06:59 18:59 Intake Total 500 / 500 Balance 500 / 500 Weight 64.8 kg Intake: IV 500 / 500 NS Inj 500 ML @ 1000 mls/hr IV. 500 / 500 SIG BOLUS ERIK Rx#:[id number] Other: Weight On Admission 64.8 kg <Oliver Wilson - 07/04/18 17:02> Vital Signs 07/04/18 09:10 07/04/18 09:31 07/04/18 10:04 Temperature 97.3 F L Pulse Rate 113 H 98 H 91 H Respiratory Rate 20 23 Blood Pressure 135/84 135/91 H Pulse Oximetry 97 97 100 07/04/18 10:05 07/04/18 11:10 07/04/18 12:06 Temperature Pulse Rate 76 82 92 H Respiratory Rate 13 18 16 Blood Pressure 140/88 109/77 Pulse Oximetry 100 99 Intake & Output 07/03/18 07/04/18 07/04/18 18:59 06:59 18:59 Intake Total 500 / 500 Balance 500 / 500 Weight 68.039 kg Intake: IV 500 / 500 NS Inj 500 ML @ 1000 mls/hr IV. 500 / 500 SIG BOLUS ERIK Rx#:[id number] <Steve Morales - 07/04/18 12:43> Narrative: General: Elderly female lying in bed, moderately anxious but does not appear to be short of breath or in any distress Skin: Warm and dry, no obvious lesions CV: Irregularly irregular and tachycardic without appreciated murmur Respiratory: Clear to auscultation bilaterally with no respiratory distress GI: Abdomen soft, nontender, nondistended Extremities: No obvious clubbing, cyanosis, or edema <Oliver Wilson - 07/04/18 17:02> GENERAL: Elderly female laying flat in bed in NAD. Answering questions appropriately, speaking in full sentences SKIN: Warm and dry. HEAD: Atraumatic. Normocephalic. EYES: Pupils equal and round. No scleral icterus. No injection or drainage. ENT: Mucous membranes pink and moist. NECK: Trachea midline. No JVD. CARDIOVASCULAR: Heart rate irregularly irregular. No murmurs appreciated on auscultation. RESPIRATORY: No accessory muscle use. Clear to auscultation. Breath sounds equal bilaterally. GASTROINTESTINAL: Abdomen soft, non-tender, nondistended. Hepatic and splenic margins not palpable. MUSCULOSKELETAL: Extremities without clubbing, cyanosis, or edema. Venous stasis on both anterior shins. NEUROLOGICAL: Awake and alert. No obvious cranial nerve deficits. Motor grossly within normal limits. Normal speech. PSYCHIATRIC: Appropriate mood and affect; insight and judgment normal. <Steve Morales - 07/04/18 15:27> Results - Labs Result diagrams: 07/04/18 10:05 07/04/18 10:05 <Oliver Wilson - 07/04/18 17:02> Abnormal lab results 07/04/18 07/04/18 07/04/18 Range/Units 10:05 10:05 10:05 Hgb 17.3 H (11.6-15.3) gm/dL Hct 47.2 H (35.0-46.0) % MCHC 36.6 H (32.0-36.0) % [place] % (Auto) 10.4 H (0.0-8.0) % Sodium 130 L (136-145) meq/L Chloride 97 L (98-107) meq/L BUN 23 H (7-18) mg/dL Creatinine 1.41 H (0.50-1.00) mg/dL Estimated GFR 36 L (>89) mL/min Random Glucose 115 H (74-106) mg/dL AST 48 H (15-37) U/L Troponin I Less than 0.02 L (0.02-0.05) ng/mL B-Natriuretic Peptide 125 H (0-100) pg/mL TSH 4.480 H (0.358-3.740) uIU/mL Urine Clarity (Clear) Urine Bacteria (None) /hpf Urine Mucus (Occasional) /lpf 07/04/18 Range/Units 10:19 Hgb (11.6-15.3) gm/dL Hct (35.0-46.0) % MCHC (32.0-36.0) % [place] % (Auto) (0.0-8.0) % Sodium (136-145) meq/L Chloride (98-107) meq/L BUN (7-18) mg/dL Creatinine (0.50-1.00) mg/dL Estimated GFR (>89) mL/min Random Glucose (74-106) mg/dL AST (15-37) U/L Troponin I (0.02-0.05) ng/mL B-Natriuretic Peptide (0-100) pg/mL TSH (0.358-3.740) uIU/mL Urine Clarity Hazy H (Clear) Urine Bacteria Rare H (None) /hpf Urine Mucus Few H (Occasional) /lpf Short CBC 07/04/18 Range/Units 10:05 WBC 7.5 (4.0-11.0) th/mm3 Hgb 17.3 H (11.6-15.3) gm/dL Hct 47.2 H (35.0-46.0) % Plt Count 286 (150-450) th/mm3 BMP 07/04/18 10:05 Sodium 130 L Potassium 3.6 Chloride 97 L Carbon Dioxide 21.5 BUN 23 H Creatinine 1.41 H Calcium 9.5 D Cardiac Enzymes 07/04/18 Range/Units 10:05 Troponin I Less than 0.02 L (0.02-0.05) ng/mL Liver Function 07/04/18 Range/Units 10:05 Total Bilirubin 0.8 (0.2-1.0) mg/dL AST 48 H (15-37) U/L ALT 50 (10-53) U/L Alkaline Phosphatase 103 (45-117) U/L Albumin 4.0 D (3.4-5.0) g/dL Urine 07/04/18 Range/Units 10:19 Urine Color Yellow (Yellw/Straw) Urine Clarity Hazy H (Clear) Urine pH 7.0 (5.0-8.5) Ur Specific [place] 1.005 (1.002-1.035) Urine Protein Negative (Neg-Trace) mg/dL Urine Glucose (UA) Negative (Negative) mg/dL <Oliver Wilson - 07/04/18 17:02> Abnormal lab results 07/04/18 07/04/18 07/04/18 Range/Units 10:05 10:05 10:19 Hgb 17.3 H (11.6-15.3) gm/dL Hct 47.2 H (35.0-46.0) % MCHC 36.6 H (32.0-36.0) % [place] % (Auto) 10.4 H (0.0-8.0) % Sodium 130 L (136-145) meq/L Chloride 97 L (98-107) meq/L BUN 23 H (7-18) mg/dL Creatinine 1.41 H (0.50-1.00) mg/dL Estimated GFR 36 L (>89) mL/min Random Glucose 115 H (74-106) mg/dL AST 48 H (15-37) U/L Troponin I Less than 0.02 L (0.02-0.05) ng/mL TSH 4.480 H (0.358-3.740) uIU/mL Urine Clarity Hazy H (Clear) Urine Bacteria Rare H (None) /hpf Urine Mucus Few H (Occasional) /lpf Short CBC 07/04/18 Range/Units 10:05 WBC 7.5 (4.0-11.0) th/mm3 Hgb 17.3 H (11.6-15.3) gm/dL Hct 47.2 H (35.0-46.0) % Plt Count 286 (150-450) th/mm3 BMP 07/04/18 10:05 Sodium 130 L Potassium 3.6 Chloride 97 L Carbon Dioxide 21.5 BUN 23 H Creatinine 1.41 H Calcium 9.5 D Cardiac Enzymes 07/04/18 Range/Units 10:05 Troponin I Less than 0.02 L (0.02-0.05) ng/mL Liver Function 07/04/18 Range/Units 10:05 Total Bilirubin 0.8 (0.2-1.0) mg/dL AST 48 H (15-37) U/L ALT 50 (10-53) U/L Alkaline Phosphatase 103 (45-117) U/L Albumin 4.0 D (3.4-5.0) g/dL Urine 07/04/18 Range/Units 10:19 Urine Color Yellow (Yellw/Straw) Urine Clarity Hazy H (Clear) Urine pH 7.0 (5.0-8.5) Ur Specific [place] 1.005 (1.002-1.035) Urine Protein Negative (Neg-Trace) mg/dL Urine Glucose (UA) Negative (Negative) mg/dL <Steve Morales O - 07/04/18 12:43> - Imaging Impressions Chest X-Ray 07/04/18 09:41 CONCLUSION: Minimal parenchymal changes left base . Cardiac silhouette is appropriate <Oliver Wilson - 07/04/18 17:02> Impressions Chest X-Ray 07/04/18 09:41 CONCLUSION: Minimal parenchymal changes left base . Cardiac silhouette is appropriate <Steve Morales - 07/04/18 12:43> Caprini VTE Risk Assessment Caprini VTE Risk Assessment: Moderate/High Risk (score >= 2) <Steve Morales - 07/04/18 15:39> Caprini Risk Assessment Model: Point Value = 1 Point Value = 2 Point Value = 3 Point Value = 5 Age 41-60 Minor surgery BMI > 25 kg/m2 Swollen legs Varicose veins or History of unexplained or recurrent spontaneous Oral contraceptives or hormone replacement Sepsis (< 1 month) Serious lung disease, including pneumonia (< 1 month) Abnormal pulmonary function Acute myocardial infarction Congestive heart failure (< 1 month) History of inflammatory bowel disease Medical patient at bed rest Age 61-74 Arthroscopic surgery Major open surgery (> 45 min) Laparoscopic surgery (> 45 min) Malignancy Confined to bed (> 72 hours) Immobilizing plaster cast Central venous access Age >= 75 History of VTE Family history of VTE Factor V Leiden Prothrombin [id number] Lupus anticoagulant Anticardiolipin antibodies Elevated serum homocysteine Heparin-induced thrombocytopenia Other congenital or acquired thrombophilia Stroke (< 1 month) Elective arthroplasty Hip, pelvis, or leg fracture Acute spinal cord injury (< 1 month) <Oliver Wilson 07/04/18 17:02> Point Value = 1 Point Value = 2 Point Value = 3 Point Value = 5 Age 41-60 Minor surgery BMI > 25 kg/m2 Swollen legs Varicose veins or History of unexplained or recurrent spontaneous Oral contraceptives or hormone replacement Sepsis (< 1 month) Serious lung disease, including pneumonia (< 1 month) Abnormal pulmonary function Acute myocardial infarction Congestive heart failure (< 1 month) History of inflammatory bowel disease Medical patient at bed rest Age 61-74 Arthroscopic surgery Major open surgery (> 45 min) Laparoscopic surgery (> 45 min) Malignancy Confined to bed (> 72 hours) Immobilizing plaster cast Central venous access Age >= 75 History of VTE Family history of VTE Factor V Leiden Prothrombin [id number] Lupus anticoagulant Anticardiolipin antibodies Elevated serum homocysteine Heparin-induced thrombocytopenia Other congenital or acquired thrombophilia Stroke (< 1 month) Elective arthroplasty Hip, pelvis, or leg fracture Acute spinal cord injury (< 1 month) <Steve Morales - 07/04/18 12:43> Prophylaxis Regimen: Total Risk Factor Score Risk Level Prophylaxis Regimen 0-1 Low Early ambulation 2 Moderate Order ONE of the following: *Sequential Compression Device (SCD) *Heparin 5000 units SQ BID 3-4 Higher Order ONE of the following medications: *Heparin 5000 units SQ TID *Enoxaparin/Lovenox 40 mg SQ daily (WT < 150 kg, CrCl > 30 mL/min) *Enoxaparin/Lovenox 30 mg SQ daily (WT < 150 kg, CrCl > 10-29 mL/min) *Enoxaparin/Lovenox 30 mg SQ BID (WT < 150 kg, CrCl > 30 mL/min) AND/OR *Sequential Compression Device (SCD) 5 or more Highest Order ONE of the following medications: *Heparin 5000 units SQ TID (Preferred with Epidurals) *Enoxaparin/Lovenox 40 mg SQ daily (WT < 150 kg, CrCl > 30 mL/min) *Enoxaparin/Lovenox 30 mg SQ daily (WT < 150 kg, CrCl > 10-29 mL/min) *Enoxaparin/Lovenox 30 mg SQ BID (WT < 150 kg, CrCl > 30 mL/min) AND *Sequential Compression Device (SCD) <Oliver Wilson - 07/04/18 17:02> Total Risk Factor Score Risk Level Prophylaxis Regimen 0-1 Low Early ambulation 2 Moderate Order ONE of the following: *Sequential Compression Device (SCD) *Heparin 5000 units SQ BID 3-4 Higher Order ONE of the following medications: *Heparin 5000 units SQ TID *Enoxaparin/Lovenox 40 mg SQ daily (WT < 150 kg, CrCl > 30 mL/min) *Enoxaparin/Lovenox 30 mg SQ daily (WT < 150 kg, CrCl > 10-29 mL/min) *Enoxaparin/Lovenox 30 mg SQ BID (WT < 150 kg, CrCl > 30 mL/min) AND/OR *Sequential Compression Device (SCD) 5 or more Highest Order ONE of the following medications: *Heparin 5000 units SQ TID (Preferred with Epidurals) *Enoxaparin/Lovenox 40 mg SQ daily (WT < 150 kg, CrCl > 30 mL/min) *Enoxaparin/Lovenox 30 mg SQ daily (WT < 150 kg, CrCl > 10-29 mL/min) *Enoxaparin/Lovenox 30 mg SQ BID (WT < 150 kg, CrCl > 30 mL/min) AND *Sequential Compression Device (SCD) <Steve Morales - 07/04/18 12:43> Assessment and Plan - Assessment (1) Afib Code(s): I48.91 - Unspecified atrial fibrillation Status: Acute (2) Hypertension Code(s): I10 - Essential (primary) hypertension Status: Acute (3) Hyponatremia Code(s): E87.1 - Hypo-osmolality and hyponatremia Status: Acute (4) SKY (acute kidney injury) Code(s): N17.9 - Acute kidney failure, unspecified Status: Acute (5) Anxiety Code(s): F41.9 - Anxiety disorder, unspecified Status: Acute (6) Hypothyroid Code(s): E03.9 - Hypothyroidism, unspecified Status: Acute <Oliver Wilson - 07/04/18 17:02> (1) Afib Code(s): I48.91 - Unspecified atrial fibrillation Status: Acute Plan: History of paroxysmal afib since 14 years old status post 4 ablations. Patient took last dose of metoprolol on at 0230 this AM after it being held on last admission due to bradycardia. Multiple admissions in past for afib with RVR. Possibly experiencing episodic afib with RVR causing lightheadedness. - Heart rate 113 on presentation to ED. Now 92 BPM. - Continue Amiodarone 200mg daily - Continue Metoprolol 25 BID - Continue Apixaban 5 mg twice daily - Monitor on telemetry - Follow-up with cardiology recommendations (2) Hypertension Code(s): I10 - Essential (primary) hypertension Status: Acute Plan: BP currently 109/77 - Continue home Amlodipine 10 mg daily - Continue home home HCTZ 25 mg p.o. daily - Continue home metoprolol 25 mg p.o. twice daily - Continue home ramipril 10 mg twice daily (3) Hyponatremia Code(s): E87.1 - Hypo-osmolality and hyponatremia Status: Acute Plan: Sodium 130 on admission with SKY. Most likely dehydration induced. Patient received 500ml bolus in the ED. - Continue to monitor and trend sodium (4) SKY (acute kidney injury) Code(s): N17.9 - Acute kidney failure, unspecified Status: Acute Plan: Creatinine on admission 1.41 from 1.29 on previous admission. Most likely due to dehydration. Status post 1x 500ml bolus in ED. - Trend renal function (5) Anxiety Code(s): F41.9 - Anxiety disorder, unspecified Status: Acute Plan: Continue home xanax 0.25 mg p.o. twice daily (6) Hypothyroid Code(s): E03.9 - Hypothyroidism, unspecified Status: Acute Plan: Continue home levothyroxine 50 mcg daily Fluids: Not indicated at this time Electrolytes: Replete as needed Nutrition: Cardiac diet DVT prophylaxis: Currently on Eliquis, not indicated at this time <Steve Morales - 07/04/18 15:34> - Attending Attestation Patient case discussed with resident physicians I have independently examined the patient I have read the above note and agree with the assessment and plan as discussed with me I was involved in all medical decision making for this patient Patient to be monitored on telemetry and cardiology consulted for atrial fibrillation and rapid ventricular response. Restarted on her beta-ramesh. Obtain troponin x3 to rule out underlying ACS. Oliver Wilson MD <Oliver Wilson - 07/04/18 17:02>
[2018-07-04] MEDS ORDERED: Bisacodyl 10 MG Supp RECTAL PRN (13:04)
[2018-07-04] MEDS ORDERED: Acetaminophen 325 MG Tablet PO PRN (13:04)
[2018-07-04] MEDS ORDERED: Heparin - SQ 10,000 UNITS/ML Vial SQ SCH (13:15)
[2018-07-04] MEDS ORDERED: ESTRADIOL 0.5 MG PO SCH (13:30)
[2018-07-04 18:13] LABS: Creatine Kinase 53 U/L (26-192)
[2018-07-04] MEDS: Metoprolol Tartrate 25 MG Tablet PO SCH (21:54)
[2018-07-04] MEDS: ALPRAZolam 0.25 MG Tablet PO PRN (22:01)
[2018-07-05 00:25] LABS: Creatine Kinase 57 U/L (26-192)
[2018-07-05 05:12] LABS: INR 1.1 Ratio
[2018-07-05] MEDS: Levothyroxine 50 MCG Tablet PO SCH (05:25)
[2018-07-05 05:35] LABS: Albumin 3.5 g/dL (3.4-5.0); Anion Gap 11 meq/L (5-15); Aspartate Aminotransferase 37 U/L (15-37); Blood Urea Nitrogen 23 mg/dL (7-18); Calcium 8.6 mg/dL (8.5-10.1); Carbon Dioxide 24.9 meq/L (21.0-32.0); Chloride 100 meq/L (98-107); Glomerular Filtration Rate 44 mL/min (>89); Glucose,Random 111 mg/dL (74-106); Potassium 3.2 meq/L (3.5-5.1); Sodium 136 meq/L (136-145)
[2018-07-05 05:38] LABS: Alanine Aminotransferase 44 U/L (10-53); Alkaline Phosphatase 86 U/L (45-117)
[2018-07-05] MEDS ORDERED: Amiodarone 200 MG Tablet PO SCH (09:00)
[2018-07-05] MEDS ORDERED: Non-Formulary Drug (Hydrochlorothiazide [Hydrochlorothiazide] 12.5 MG) PO SCH (09:00)
[2018-07-05] MEDS: Ramipril 5 MG Capsule PO SCH ×2 (09:12→21:31)
[2018-07-05] MEDS: hydroCHLOROthiazide 25 MG Tablet PO SCH (09:13)
[2018-07-05] MEDS: Metoprolol Tartrate 25 MG Tablet PO SCH ×3 (09:13→21:32)
[2018-07-05] MEDS: amLODIPine 10 MG Tablet PO SCH (09:13)
--- NOTE | 2018-07-05 09:13 | P.PNFP ---
Subjective Interval history: Patient was seen at bedside this morning. Patient continues to feel "lousy". She reports nausea without vomiting as well as continues to experience palpitations and feelings of racing heart. She denies any diaphoresis or chest pain. It was discussed with the patient that her head bander and liner operator will be seeing her this afternoon around 14-1500 which calmed her down significantly. Patient continues to experience anxiety that is adding to her current clinical picture. Patient had no further questions and thanked me for her care. <Steve Morales - 07/05/18 10:27> Results - Labs Result diagrams: 07/04/18 10:05 07/05/18 04:22 <Oliver Wilson - 07/05/18 14:56> Abnormal lab results 07/04/18 07/04/18 07/04/18 Range/Units 10:05 17:39 23:34 Potassium (3.5-5.1) meq/L BUN (7-18) mg/dL Creatinine (0.50-1.00) mg/dL Estimated GFR (>89) mL/min Random Glucose (74-106) mg/dL Troponin I Less than 0.02 L Less than 0.02 L (0.02-0.05) ng/mL B-Natriuretic Peptide 125 H (0-100) pg/mL 07/05/18 Range/Units 04:22 Potassium 3.2 L (3.5-5.1) meq/L BUN 23 H (7-18) mg/dL Creatinine 1.17 H (0.50-1.00) mg/dL Estimated GFR 44 L (>89) mL/min Random Glucose 111 H (74-106) mg/dL Troponin I (0.02-0.05) ng/mL B-Natriuretic Peptide (0-100) pg/mL BMP 07/05/18 04:22 Sodium 136 Potassium 3.2 L Chloride 100 Carbon Dioxide 24.9 BUN 23 H Creatinine 1.17 H Calcium 8.6 D Cardiac Enzymes 07/04/18 07/04/18 Range/Units 17:39 23:34 Total Creatine Kinase 53 57 (26-192) U/L Troponin I Less than 0.02 L Less than 0.02 L (0.02-0.05) ng/mL Liver Function 07/05/18 Range/Units 04:22 Total Bilirubin 0.6 (0.2-1.0) mg/dL AST 37 (15-37) U/L ALT 44 (10-53) U/L Alkaline Phosphatase 86 (45-117) U/L Albumin 3.5 (3.4-5.0) g/dL <Oliver Wilson - 07/05/18 14:56> Abnormal lab results 07/04/18 07/04/18 07/04/18 Range/Units 10:05 10:05 10:05 Hgb 17.3 H (11.6-15.3) gm/dL Hct 47.2 H (35.0-46.0) % MCHC 36.6 H (32.0-36.0) % [place] % (Auto) 10.4 H (0.0-8.0) % Sodium 130 L (136-145) meq/L Potassium (3.5-5.1) meq/L Chloride 97 L (98-107) meq/L BUN 23 H (7-18) mg/dL Creatinine 1.41 H (0.50-1.00) mg/dL Estimated GFR 36 L (>89) mL/min Random Glucose 115 H (74-106) mg/dL AST 48 H (15-37) U/L Troponin I Less than 0.02 L (0.02-0.05) ng/mL B-Natriuretic Peptide 125 H (0-100) pg/mL TSH 4.480 H (0.358-3.740) uIU/mL Urine Clarity (Clear) Urine Bacteria (None) /hpf Urine Mucus (Occasional) /lpf 07/04/1818 07/04/18 Range/Units 10:19 17:39 23:34 Hgb (11.6-15.3) gm/dL Hct (35.0-46.0) % MCHC (32.0-36.0) % [place] % (Auto) (0.0-8.0) % Sodium (136-145) meq/L Potassium (3.5-5.1) meq/L Chloride (98-107) meq/L BUN (7-18) mg/dL Creatinine (0.50-1.00) mg/dL Estimated GFR (>89) mL/min Random Glucose (74-106) mg/dL AST (15-37) U/L Troponin I Less than 0.02 L Less than 0.02 L (0.02-0.05) ng/mL B-Natriuretic Peptide (0-100) pg/mL TSH (0.358-3.740) uIU/mL Urine Clarity Hazy H (Clear) Urine Bacteria Rare H (None) /hpf Urine Mucus Few H (Occasional) /lpf 07/05/18 Range/Units 04:22 Hgb (11.6-15.3) gm/dL Hct (35.0-46.0) % MCHC (32.0-36.0) % [place] % (Auto) (0.0-8.0) % Sodium (136-145) meq/L Potassium 3.2 L (3.5-5.1) meq/L Chloride (98-107) meq/L BUN 23 H (7-18) mg/dL Creatinine 1.17 H (0.50-1.00) mg/dL Estimated GFR 44 L (>89) mL/min Random Glucose 111 H (74-106) mg/dL AST (15-37) U/L Troponin I (0.02-0.05) ng/mL B-Natriuretic Peptide (0-100) pg/mL TSH (0.358-3.740) uIU/mL Urine Clarity (Clear) Urine Bacteria (None) /hpf Urine Mucus (Occasional) /lpf Short CBC 07/04/18 Range/Units 10:05 WBC 7.5 (4.0-11.0) th/mm3 Hgb 17.3 H (11.6-15.3) gm/dL Hct 47.2 H (35.0-46.0) % Plt Count 286 (150-450) th/mm3 [facility] 07/04/18 07/05/18 10:05 04:22 Sodium 130 L 136 Potassium 3.6 3.2 L Chloride 97 L 100 Carbon Dioxide 21.5 24.9 BUN 23 H 23 H Creatinine 1.41 H 1.17 H Calcium 9.5 D 8.6 D Cardiac Enzymes 07/04/18 07/04/18 07/04/18 Range/Units 10:05 17:39 23:34 Total Creatine Kinase 53 57 (26-192) U/L Troponin I Less than 0.02 L Less than 0.02 L Less than 0.02 L (0.02-0.05) ng/mL Liver Function 07/04/18 07/05/18 Range/Units 10:05 04:22 Total Bilirubin 0.8 0.6 (0.2-1.0) mg/dL AST 48 H 37 (15-37) U/L ALT 50 44 (10-53) U/L Alkaline Phosphatase 103 86 (45-117) U/L Albumin 4.0 D 3.5 (3.4-5.0) g/dL Urine 07/04/18 Range/Units 10:19 Urine Color Yellow (Yellw/Straw) Urine Clarity Hazy H (Clear) Urine pH 7.0 (5.0-8.5) Ur Specific [place] 1.005 (1.002-1.035) Urine Protein Negative (Neg-Trace) mg/dL Urine Glucose (UA) Negative (Negative) mg/dL <Steve Morales - 07/05/18 09:13> - Imaging Impressions Chest X-Ray 07/04/18 09:41 CONCLUSION: Minimal parenchymal changes left base . Cardiac silhouette is appropriate <Steve Morales - 07/05/18 09:13> Physical Exam Vital signs: Vital Signs 07/04/18 15:13 07/04/18 16:00 07/04/18 20:00 Temperature 97.8 F 98.8 F Pulse Rate 94 H 122 H 91 H Respiratory Rate 15 18 15 Blood Pressure 121/78 135/68 121/63 Pulse Oximetry 98 98 95 07/05/18 00:00 07/05/18 04:00 07/05/18 08:00 Temperature 98.1 F 98 F 98.0 F Pulse Rate 92 H 106 H 104 H Respiratory Rate 18 17 18 Blood Pressure 118/72 131/71 120/73 Pulse Oximetry 95 98 95 07/05/18 12:00 Temperature 98 F Pulse Rate 95 H Respiratory Rate 18 Blood Pressure 116/73 Pulse Oximetry 95 Intake & Output 07/04/18 07/05/18 07/05/18 18:59 06:59 18:59 Intake Total 500 / 500 240 / 240 Balance 500 / 500 240 / 240 Weight 64.8 kg 64.6 kg Intake: IV 500 / 500 NS Inj 500 ML @ 1000 mls/hr IV. 500 / 500 SIG BOLUS ERIK Rx#:[id number] Oral 240 / 240 Other: # Voids 2 3 Weight On Admission 64.8 kg <Kat Wilsony - 07/05/18 14:56> Vital Signs 07/04/18 09:31 07/04/18 10:04 07/04/18 10:05 Temperature Pulse Rate 98 H 91 H 76 Respiratory Rate 23 13 Blood Pressure 135/91 H Pulse Oximetry 97 100 07/04/18 11:10 07/04/18 12:06 07/04/18 12:10 Temperature Pulse Rate 82 92 H Respiratory Rate 18 16 Blood Pressure 140/88 109/77 Pulse Oximetry 100 99 99 07/04/18 13:05 07/04/18 15:13 07/04/18 16:00 Temperature 97.8 F Pulse Rate 103 H 94 H 122 H Respiratory Rate 16 15 18 Blood Pressure 137/95 H 121/78 135/68 Pulse Oximetry 96 98 98 07/04/18 20:00 07/05/18 00:00 07/05/18 04:00 Temperature 98.8 F 98.1 F 98 F Pulse Rate 91 H 92 H 106 H Respiratory Rate 15 18 17 Blood Pressure 121/63 118/72 131/71 Pulse Oximetry 95 95 98 Intake & Output 07/04/18 07/05/18 07/05/18 18:59 06:59 18:59 Intake Total 500 / 500 240 / 240 Balance 500 / 500 240 / 240 Weight 64.8 kg 64.6 kg Intake: IV 500 / 500 NS Inj 500 ML @ 1000 mls/hr IV. 500 / 500 SIG BOLUS ERIK Rx#:[id number] Oral 240 / 240 Other: # Voids 2 3 Weight On Admission 64.8 kg <Steve Morales - 07/05/18 09:13> Narrative: General: Elderly female lying in bed, moderately anxious but does not appear to be short of breath or in any distress Skin: Warm and dry, no obvious lesions CV: Irregularly irregular without tachycardia, and without appreciated murmur Respiratory: Clear to auscultation bilaterally with no respiratory distress GI: Abdomen soft, nontender, nondistended Extremities: No obvious clubbing, cyanosis, or edema <Steve Morales 07/05/18 11:27> Assessment and Plan - Assessment (1) Afib Code(s): I48.91 - Unspecified atrial fibrillation Status: Acute (2) Hypertension Code(s): I10 - Essential (primary) hypertension Status: Acute (3) Hyponatremia Code(s): E87.1 - Hypo-osmolality and hyponatremia Status: Acute (4) SKY (acute kidney injury) Code(s): N17.9 - Acute kidney failure, unspecified Status: Acute (5) Anxiety Code(s): F41.9 - Anxiety disorder, unspecified Status: Acute (6) Hypothyroid Code(s): E03.9 - Hypothyroidism, unspecified Status: Acute <Oliver Wilson - 07/05/18 14:56> (1) Afib Code(s): I48.91 - Unspecified atrial fibrillation Status: Acute Plan: History of paroxysmal afib since 14 years old status post 4 ablations. Patient took last dose of metoprolol on at 0230 this AM after it being held on last admission due to bradycardia. Multiple admissions in past for afib with RVR. Possibly experiencing episodic afib with RVR causing lightheadedness. Overnight patient had several episodes of A. fib with RVR recorded on telemetry. Patient continues to feel weak and nauseous. Patient's head bander and liner operator will see her this afternoon and make recommendations. - Heart rate 113 on presentation to ED. Now 104 BPM. - Continue Amiodarone 200mg daily - Increase metoprolol to 50 BID - Continue Apixaban 5 mg twice daily - Monitor on telemetry - Discharge pending cardiology recommendations (2) Hypertension Code(s): I10 - Essential (primary) hypertension Status: Acute Plan: Normotensive - Continue home Amlodipine 10 mg daily - Continue home home HCTZ 25 mg p.o. daily -Increase home metoprolol to 50 mg p.o. twice daily - Continue home ramipril 10 mg twice daily (3) Hyponatremia Code(s): E87.1 - Hypo-osmolality and hyponatremia Status: Acute Plan: Resolved, sodium this morning 136 from 130 on admission. - Continue to monitor and trend sodium (4) SKY (acute kidney injury) Code(s): N17.9 - Acute kidney failure, unspecified Status: Acute Plan: Improving. Creatinine on admission 1.41 from 1.29 on previous admission. Creatinine 1.17 today. - Trend renal function (5) Anxiety Code(s): F41.9 - Anxiety disorder, unspecified Status: Acute Plan: Continue home xanax 0.25 mg p.o. twice daily (6) Hypothyroid Code(s): E03.9 - Hypothyroidism, unspecified Status: Acute Plan: Continue home levothyroxine 50 mcg daily Fluids: Not indicated at this time Electrolytes: Replete as needed Nutrition: Cardiac diet DVT prophylaxis: Currently on Eliquis, not indicated at this time <Steve Morales - 07/05/18 11:23> - Attending Attestation Patient case discussed with resident physicians I have independently examined the patient I have read the above note and agree with the assessment and plan as discussed with me I was involved in all medical decision making for this patient Oliver Wilson MD <Oliver Wilson - 07/05/18 14:56>
--- NOTE | 2018-07-05 16:27 | ECG ---
Date Performed: 07/04/2018 Time Performed: 09:28:07 PTAGE: 83 years EKG: Probably SINUS TACHYCARDIA WITH FIRST DEGREE AV BLOCK and frequent premature atrial contrac tions. INCOMPLETE RIGHT BUNDLE BRANCH BLOCK ST DEVIATION AND MODERATE T-WAVE ABNORMALITY, CONSIDER AN TEROLATERAL ISCHEMIA ABNORMAL ECG PREVIOUS TRACING : 07/02/2018 10.57.09 DOCTOR: Torrey Robles Interpretating Date/Time 07/05/2018 16:26:13
[2018-07-05] MEDS: ALPRAZolam 0.25 MG Tablet PO PRN (18:14)
[2018-07-05] MEDS: Flecainide 100 MG Tablet PO SCH (21:44)
[2018-07-06] MEDS: Levothyroxine 50 MCG Tablet PO SCH (06:56)
[2018-07-06] MEDS: hydroCHLOROthiazide 25 MG Tablet PO SCH (08:34)
[2018-07-06] MEDS: Flecainide 100 MG Tablet PO SCH ×2 (08:34→20:48)
[2018-07-06] MEDS: Metoprolol Tartrate 25 MG Tablet PO SCH ×2 (08:34→20:48)
[2018-07-06] MEDS: amLODIPine 10 MG Tablet PO SCH (08:34)
[2018-07-06] MEDS: Ramipril 5 MG Capsule PO SCH ×2 (08:34→20:48)
--- NOTE | 2018-07-06 08:40 | P.PNFP ---
Subjective Interval history: Patient states she is feeling better. Anxiety is being controlled by Xanax. No further episodes of palpitations, nausea, or lightheadedness. Episodes of HR >110 this morning, patient is still in afib. Seen by Dr. Rincon yesterday evening. Was told she needs to stay for ablation/ cardioversion (?). Requests to go home soon. <Cynthia WaddellKikeLouann N - 07/06/18 08:40> Results - Labs Result diagrams: 07/04/18 10:05 07/05/18 04:22 <Oliver Wilson - 07/06/18 14:47> Physical Exam Vital signs: Vital Signs 07/05/18 15:59 07/05/18 16:00 07/05/18 17:41 Temperature 97.1 F L Pulse Rate 101 H 94 H Respiratory Rate 16 Blood Pressure 105/78 Pulse Oximetry 98 98 07/05/18 20:00 07/06/18 00:00 07/06/18 04:00 Temperature 97.8 F 97.2 F L 97.6 F Pulse Rate 92 H 74 86 Respiratory Rate 17 17 16 Blood Pressure 98/59 L 96/53 L 113/67 Pulse Oximetry 95 97 95 07/06/18 06:10 07/06/18 08:00 07/06/18 10:13 Temperature 98.3 F 97.2 F L Pulse Rate 83 88 Respiratory Rate 18 18 Blood Pressure 148/66 H 123/74 Pulse Oximetry 95 95 95 07/06/18 12:00 Temperature 97.5 F L Pulse Rate 60 Respiratory Rate 17 Blood Pressure 129/69 Pulse Oximetry 96 Intake & Output 07/05/18 07/06/18 07/06/18 18:59 06:59 18:59 Intake Total 480 / 480 60 / 60 Output Total 500 / 500 100 / 100 Balance -20 / -20 -40 / -40 Weight 66.3 kg Intake: Oral 480 / 480 60 / 60 Output: Urine 500 / 500 100 / 100 Other: # Bowel Movements 0 <Oliver Wilson - 07/06/18 14:47> Vital Signs 07/05/18 12:00 07/05/18 15:59 07/05/18 16:00 Temperature 98 F 97.1 F L Pulse Rate 90 101 H 94 H Respiratory Rate 18 16 Blood Pressure 116/73 105/78 Pulse Oximetry 95 98 07/05/18 17:41 07/05/18 20:00 07/06/18 00:00 Temperature 97.8 F 97.2 F L Pulse Rate 92 H 74 Respiratory Rate 17 17 Blood Pressure 98/59 L 96/53 L Pulse Oximetry 98 95 97 07/06/18 04:00 07/06/18 06:10 Temperature 97.6 F 98.3 F Pulse Rate 86 83 Respiratory Rate 16 18 Blood Pressure 113/67 148/66 H Pulse Oximetry 95 95 Intake & Output 07/05/18 07/06/18 07/06/18 18:59 06:59 18:59 Intake Total 480 / 480 60 / 60 Output Total 500 / 500 100 / 100 Balance -20 / -20 -40 / -40 Weight 66.3 kg Intake: Oral 480 / 480 60 / 60 Output: Urine 500 / 500 100 / 100 Other: # Bowel Movements 0 <AbiLuoann Delgadillo - 07/06/18 08:40> Narrative: General: Elderly female lying in bed, resting comfortably and calmly Skin: Warm and dry, no obvious lesions CV: Irregularly irregular without tachycardia, and without appreciated murmur Respiratory: Clear to auscultation bilaterally with no respiratory distress GI: Abdomen soft, nontender, nondistended Extremities: normal ROM <Abidianne WaddellLouann - 07/06/18 08:40> Assessment and Plan - Assessment (1) Afib Code(s): I48.91 - Unspecified atrial fibrillation Status: Acute (2) Hypertension Code(s): I10 - Essential (primary) hypertension Status: Acute (3) SKY (acute kidney injury) Code(s): N17.9 - Acute kidney failure, unspecified Status: Acute (4) Anxiety Code(s): F41.9 - Anxiety disorder, unspecified Status: Acute (5) Hypothyroid Code(s): E03.9 - Hypothyroidism, unspecified Status: Acute <Oliver Wilson - 07/06/18 14:47> (1) Afib Code(s): I48.91 - Unspecified atrial fibrillation Status: Acute Plan: History of paroxysmal afib since 14 years old status post 4 ablations. Con't to be in afib and have episodes of tachycardia overnight. Cardiology following, Dr. Rincon is her OP provider - Monitoring on tele - Discharge pending cardiology recommendations, procedure today Meds: - Amiodarone 200mg daily - Metoprolol to 50 BID - Apixaban 5 mg twice daily - Flecainide 100 mg BID added yesterday (2) Hypertension Code(s): I10 - Essential (primary) hypertension Status: Acute Plan: Normotensive - Continue home Amlodipine 10 mg daily - Continue home home HCTZ 25 mg p.o. daily - metoprolol - Continue home ramipril 10 mg twice daily (3) SKY (acute kidney injury) Code(s): N17.9 - Acute kidney failure, unspecified Status: Acute Plan: Improving. Likely from poor perfusion - Trend renal function (4) Anxiety Code(s): F41.9 - Anxiety disorder, unspecified Status: Acute Plan: on home xanax 0.25 mg p.o. twice daily (5) Hypothyroid Code(s): E03.9 - Hypothyroidism, unspecified Status: Acute Plan: Continue home levothyroxine 50 mcg daily Fluids: Not indicated at this time Electrolytes: Replete as needed Nutrition: Cardiac diet DVT prophylaxis: Currently on Eliquis, not indicated at this time <Louann Gonzalez N - 07/06/18 08:32> - Attending Attestation Pt. examined independent of resident physicians this morning during medical rounds I have read the above note and agree with the assessment/plan as discussed with me I was involved in all medical decision making for this patient Oliver Wilson MD <Oliver Wilson - 07/06/18 14:47>
--- NOTE | 2018-07-06 08:57 | MB ---
cc: Kin Rincon MD DATE: 07/05/2018 REASON FOR CONSULTATION: Tachyarrhythmia. HISTORY OF PRESENT ILLNESS: Mrs. Ferreira is an 83-year-old female with history of atrial fibrillation, previous ablation around a year and a half ago, was doing well for the past year. Began a couple of weeks ago with frequent tachyarrhythmia. Went to the emergency room, was discharged home and back again into the emergency room. Heart rate difficult to control. I was consulted for evaluation and management. The chart was reviewed. The patient was evaluated. ALLERGIES: MULTIPLE. THE PATIENT IS ALLERGIC TO CECLOR, PAROXETINE, SULFA, CIPROFLOXACIN, CLONIDINE, AND LATEX. SOCIAL HISTORY: Negative for smoking and drinking. FAMILY HISTORY: Noncontributory to current medical condition. MEDICATIONS: She is on Eliquis 5 mg twice a day, amlodipine 10 mg a day, hydroxyzine, hydrochlorothiazide, Levoxyl, metoprolol, Zofran, potassium, and ramipril. REVIEW OF SYSTEMS: Currently, the patient has no chest pain, no chest discomfort, palpitation, or shortness of breath. No fever. PHYSICAL EXAMINATION: GENERAL: Alert, fully oriented. VITAL SIGNS: Blood pressure on evaluation 98/59, pulse 98, respiratory rate 18. LUNGS: Ventilated. CARDIOVASCULAR: S1, S2, tachycardic, regular. ABDOMEN: Soft. No mass. EXTREMITIES: No edema. DIAGNOSTIC DATA: Electrocardiogram indicated atrial tachyarrhythmia, diffuse ST changes. Labs: Hemoglobin is 17.3, white blood cell 7.5. INR 1.1. Potassium is 3.2, creatinine is 1.17. ASSESSMENT AND RECOMMENDATIONS: Mrs. Ferreira' heart rate very difficult to control. Back in atrial tachyarrhythmia. She has normal ejection fraction, no coronary artery disease. I am going to add flecainide 100 mg twice a day. Echocardiogram will be taken in the morning. If heart rate not controlled, then I will consider cardioversion. Case extensively discussed with the patient and her . Will be monitored during hospitalization. Kin Rincon MD HS/rs , 08:29 AM , 08:37 AM
[2018-07-06] MEDS: ALPRAZolam 0.25 MG Tablet PO PRN (16:14)
--- NOTE | 2018-07-06 16:23 | ECG ---
Date Performed: 07/06/2018 Time Performed: 09:52:18 PTAGE: 83 years EKG: Sinus rhythm WITH FIRST DEGREE AV BLOCK WITH FREQUENT SUPRAVENTRICULAR PREMATURE COMPLEXES IN A BIGEMINAL PATTERN ST DEVIATION AND MODERATE T-WAVE ABNORMALITY, CONSIDER ANTEROLATERAL ISCHEMIA Compared to previous t racing, HR has slowed significantly ABNORMAL ECG PREVIOUS TRACING : 07/04/2018 09.28 DOCTOR: Jacob Palacio Interpretating Date/Time 07/06/2018 16:22:24
--- NOTE | 2018-07-06 19:50 | P.PN ---
Subjective Interval history: palpitation When am i going home Physical Exam Vital signs: Vital Signs 07/05/18 20:00 07/06/18 00:00 07/06/18 04:00 Temperature 97.8 F 97.2 F L 97.6 F Pulse Rate 92 H 74 86 Respiratory Rate 17 17 16 Blood Pressure 98/59 L 96/53 L 113/67 Pulse Oximetry 95 97 95 07/06/18 06:10 07/06/18 08:00 07/06/18 10:13 Temperature 98.3 F 97.2 F L Pulse Rate 83 84 Respiratory Rate 18 18 Blood Pressure 148/66 H 123/74 Pulse Oximetry 95 95 95 07/06/18 12:00 07/06/18 16:00 07/06/18 17:25 Temperature 97.5 F L 97.5 F L Pulse Rate 49 L 106 H Respiratory Rate 17 20 Blood Pressure 129/69 131/80 Pulse Oximetry 96 98 96 Intake & Output 07/06/18 07/06/18 07/07/18 06:59 18:59 06:59 Intake Total 60 / 60 700 / 700 Output Total 100 / 100 Balance -40 / -40 700 / 700 Weight 66.3 kg Intake: Oral 60 / 60 700 / 700 Output: Urine 100 / 100 Other: # Bowel Movements 0 0 - Constitutional no acute distress - Routine HEENT Exam Head: Present: normocephalic Eye: Present: PERRL ENT: Present: mucous membranes moist - Routine Neck Exam Present: supple - Routine Respiratory Exam Present: CTA bilaterally - Routine Cardiovascular Exam Present: S1, S2, irregularly irregular - Routine Abdominal Exam Present: soft - Routine Neurological Exam Present: alert, oriented X3 - Detailed Neurological Exam: Coma Scale Eye Opening: Spontaneous Verbal Response: Oriented Motor Response: Obey commands [place] Coma Scale Total: 15 Results - Labs CBC & Chem 7: 07/04/18 10:05 07/05/18 04:22 Assessment and Plan - Assessment (1) Afib Code(s): I48.91 - Unspecified atrial fibrillation Status: Acute Plan: In atrial fibrillation HR today was in the 50s but back into afib with FVR On her second dose of flecainide. will wait for tonight dose. If Still into afib in the morning and HR control, then cardioversion. Case discussed extensively with patient and NPO after midnight Possible cardioversion in AM EKG 0700
[2018-07-07] MEDS: Levothyroxine 50 MCG Tablet PO SCH (05:39)
[2018-07-07] MEDS: ALPRAZolam 0.25 MG Tablet PO PRN (05:39)
[2018-07-07] MEDS: amLODIPine 10 MG Tablet PO SCH (08:11)
[2018-07-07] MEDS: Flecainide 100 MG Tablet PO SCH (08:11)
[2018-07-07] MEDS: Metoprolol Tartrate 25 MG Tablet PO SCH (08:12)
[2018-07-07] MEDS: Ramipril 5 MG Capsule PO SCH (08:19)
[2018-07-07] MEDS: hydroCHLOROthiazide 25 MG Tablet PO SCH (08:19)
[2018-07-07] MEDS ORDERED: Lidocaine PF 1% Inj 5 ML Syringe OTHER ONE (10:10)
--- NOTE | 2018-07-07 10:39 | P.PNFP ---
Subjective Interval history: Patient went for cardioversion procedure this AM but converted after lidocaine IV administration for sedation. Cardioversion was not performed, noted to be in [place] type 1. HR is in sinus. Cleared for DC by cardio later today. Doing well today, having no symptoms (like those she came in with). Vitals stable, feeling well to go home. <Cynthia WaddellLouann N - 07/07/18 14:56> Results - Labs Result diagrams: 07/04/18 10:05 07/05/18 04:22 <Oliver Wilson - 07/07/18 15:37> Physical Exam Vital signs: Vital Signs 07/06/18 16:00 07/06/18 17:25 07/06/18 20:00 Temperature 97.5 F L 97.1 F L Pulse Rate 106 H 98 H Respiratory Rate 20 18 Blood Pressure 131/80 152/57 H Pulse Oximetry 98 96 95 07/06/18 23:47 07/07/18 00:00 07/07/18 04:00 Temperature 97.6 F 97.6 F Pulse Rate 85 83 87 Respiratory Rate 17 16 Blood Pressure 117/63 126/67 Pulse Oximetry 95 95 07/07/18 08:00 07/07/18 12:00 07/07/18 12:28 Temperature 97.6 F 97.1 F L Pulse Rate 88 75 Respiratory Rate 18 18 Blood Pressure 121/57 L 105/55 L Pulse Oximetry 98 99 98 Intake & Output 07/06/18 07/07/18 07/07/18 18:59 06:59 18:59 Intake Total 700 / 700 120 / 120 Output Total 200 / 200 Balance 700 / 700 -80 / -80 Weight 65.9 kg Intake: Oral 700 / 700 120 / 120 Output: Urine 200 / 200 Other: Date of Last Bowel Movement 07/06/18 # Bowel Movements 0 0 <Oliver Wilson - 07/07/18 15:37> Vital Signs 07/06/18 12:00 07/06/18 16:00 07/06/18 17:25 Temperature 97.5 F L 97.5 F L Pulse Rate 49 L 106 H Respiratory Rate 17 20 Blood Pressure 129/69 131/80 Pulse Oximetry 96 98 96 07/06/18 20:00 07/06/18 23:47 07/07/18 00:00 Temperature 97.1 F L 97.6 F Pulse Rate 98 H 85 83 Respiratory Rate 18 17 Blood Pressure 152/57 H 117/63 Pulse Oximetry 95 95 07/07/18 04:00 07/07/18 08:00 Temperature 97.6 F 97.6 F Pulse Rate 87 99 H Respiratory Rate 16 18 Blood Pressure 126/67 121/57 L Pulse Oximetry 95 98 Intake & Output 07/06/18 07/07/18 07/07/18 18:59 06:59 18:59 Intake Total 700 / 700 120 / 120 Output Total 200 / 200 Balance 700 / 700 -80 / -80 Weight 65.9 kg Intake: Oral 700 / 700 120 / 120 Output: Urine 200 / 200 Other: Date of Last Bowel Movement 07/06/18 # Bowel Movements 0 0 <Cynthia R2KikeLouann N - 07/07/18 10:39> Assessment and Plan - Assessment (1) Afib Code(s): I48.91 - Unspecified atrial fibrillation Status: Acute (2) Hypertension Code(s): I10 - Essential (primary) hypertension Status: Acute (3) SKY (acute kidney injury) Code(s): N17.9 - Acute kidney failure, unspecified Status: Acute (4) Anxiety Code(s): F41.9 - Anxiety disorder, unspecified Status: Acute (5) Hypothyroid Code(s): E03.9 - Hypothyroidism, unspecified Status: Acute <Oliver Wilson - 07/07/18 15:37> (1) Afib Code(s): I48.91 - Unspecified atrial fibrillation Status: Acute Plan: History of paroxysmal afib since 14 years old status post 4 ablations. Con't to be in afib and have episodes of tachycardia overnight. Cardiology following, Dr. Rincon is her OP provider - plans to f/u in 3 weeks Dc today Con't meds: - Amiodarone 200mg daily - Metoprolol to 50 BID - Apixaban 5 mg twice daily - Flecainide 100 mg BID (2) Hypertension Code(s): I10 - Essential (primary) hypertension Status: Acute Plan: Normotensive - Amlodipine - HCTZ - metoprolol - ramipril (3) SKY (acute kidney injury) Code(s): N17.9 - Acute kidney failure, unspecified Status: Acute Plan: Improving. Likely from poor perfusion 2/2 afib - Con't to monitor outpatient - Order BMP outpatient (4) Anxiety Code(s): F41.9 - Anxiety disorder, unspecified Status: Acute Plan: on home xanax 0.25 mg p.o. twice daily (5) Hypothyroid Code(s): E03.9 - Hypothyroidism, unspecified Status: Acute Plan: Continue home levothyroxine 50 mcg daily Fluids: Not indicated at this time Electrolytes: Replete as needed Nutrition: Cardiac diet DVT prophylaxis: Currently on Eliquis <AbiLouann Delgadillo N - 07/07/18 14:55> - Assessment and Plan Discharge Planning: Dc today w/cardiology f/u <AbiLouann Delgadillo - 07/07/18 14:56> - Attending Attestation Patient case discussed with resident physicians I have independently examined the patient I have read the above note and agree with the assessment and plan as discussed with me I was involved in all medical decision making for this patient Oliver Wilson MD <Oliver Wilson - 07/07/18 15:37>
--- NOTE | 2018-07-07 11:04 | P.PN ---
Subjective Interval history: Feeling better Physical Exam Vital signs: Vital Signs 07/06/18 12:00 07/06/18 16:00 07/06/18 17:25 Temperature 97.5 F L 97.5 F L Pulse Rate 49 L 106 H Respiratory Rate 17 20 Blood Pressure 129/69 131/80 Pulse Oximetry 96 98 96 07/06/18 20:00 07/06/18 23:47 07/07/18 00:00 Temperature 97.1 F L 97.6 F Pulse Rate 98 H 85 83 Respiratory Rate 18 17 Blood Pressure 152/57 H 117/63 Pulse Oximetry 95 95 07/07/18 04:00 07/07/18 08:00 Temperature 97.6 F 97.6 F Pulse Rate 87 88 Respiratory Rate 16 18 Blood Pressure 126/67 121/57 L Pulse Oximetry 95 98 Intake & Output 07/06/18 07/07/18 07/07/18 18:59 06:59 18:59 Intake Total 700 / 700 120 / 120 Output Total 200 / 200 Balance 700 / 700 -80 / -80 Weight 65.9 kg Intake: Oral 700 / 700 120 / 120 Output: Urine 200 / 200 Other: Date of Last Bowel Movement 07/06/18 # Bowel Movements 0 0 - Constitutional no acute distress - Routine HEENT Exam Head: Present: normocephalic Eye: Present: PERRL - Routine Respiratory Exam Present: CTA bilaterally - Routine Cardiovascular Exam Present: RRR - Routine Abdominal Exam Present: soft - Routine Neurological Exam Present: alert, oriented X3 - Detailed Neurological Exam: Coma Scale Eye Opening: Spontaneous Verbal Response: Oriented Motor Response: Obey commands [place] Coma Scale Total: 15 Results - Labs CBC & Chem 7: 07/04/18 10:05 07/05/18 04:22 Assessment and Plan - Assessment (1) Afib Code(s): I48.91 - Unspecified atrial fibrillation Status: Acute Plan: In sinus rhythm No need for cardioversion Converted after lidocaine IV administered before sedation Currently in Mobitz type I Doing well can be DH later today Follow up in 3 weeks
--- NOTE | 2018-07-07 15:41 | P.DS ---
Date of admission: 07/04/18 12:18 Primary care physician: Junior Quinonez MD Brief History from admission: 83-year-old female presenting to the emergency department with symptomatic palpitations and tachycardia. She has a history of atrial fibrillation status post 4 ablations who is seen in the emergency department 2 days ago for symptomatic bradycardia with a heart rate in the 30s-40s. Her metoprolol was held and she was given a fluid bolus, with a subsequent increase in her heart rate up to the 70s and resolution of her symptoms. She was discharged home, where she states that she began feeling her heart "racing" with palpitations and skipping beats over the course of the last 2 days. She also endorsed lightheadedness and episodes of diaphoresis. This went on until she took a metoprolol at approximately 02: 30 this morning before presenting to the emergency department due to continued palpitations. Upon arrival to the emergency department, she was found to be in A. fib with a heart rate around 113 -120. She was treated with a dose of Cardizem with subsequent decrease of her heart rate into the 90s and is currently asymptomatic. DS: Diagnosis - Discharge Diagnosis (1) Afib Status: Acute (2) Hypertension Status: Acute (3) SKY (acute kidney injury) Status: Acute (4) Anxiety Status: Acute (5) Hypothyroid Status: Acute DS: Medications - Discharge Medications Prescriptions: amlodipine 10 mg PO DAILY 60 Days #60 tab flecainide 100 mg PO BID #60 tab hydrochlorothiazide 25 mg PO DAILY #60 tab metoprolol tartrate 50 mg PO BID #60 tab ramipril 20 mg PO BID #60 tab DS: Summary Hospital Course: Home medications were continued on admission. Patient was placed on tele and her superintendent storage area Dr. Rincon was consulted. Patient received 1/2 L bolus of NS in the ED. Spoke w/Dr. Rincon the next day who requested metoprolol dose to be increased to 50 BID from 25 BID, which was done. Patient was seen by cardiology on 07/06 and flecainide 100 BID was added to her medication regimen. An ekg was performed, and her heart rate and rhythm were monitored for another day to observe for conversion back to normal rhythm. She continued to be in atrial fibrillation, with episodes of RVR, so it was planned for patient to undergo cardioversion if not symptoms were controlled by second dose of flecainide. Symptoms continued so cardioversion was scheduled the next morning. At that time , while receiving lidocaine prior to procedure, she converted, so cardioversion procedure was cancelled. Although thereafter the heart rhythm was observed to be Mobitz type I, patient stated she felt better and was noted to be doing well and was stable. Cardiology cleared patient for discharge and requested f/u in 3 weeks. Patient was discharged to continue medication regimen from the hospital. - Time Spent with Patient Total time spent providing and/or coordinating discharge services: Greater than 30 minutes - Quality: VTE Deep Vein Thrombosis/Pulmonary Embolism Present on Admission: No Exam Vital signs: Vital Signs 07/06/18 16:00 07/06/18 17:25 07/06/18 20:00 Temperature 97.5 F L 97.1 F L Pulse Rate 106 H 98 H Respiratory Rate 20 18 Blood Pressure 131/80 152/57 H Pulse Oximetry 98 96 95 07/06/18 23:47 07/07/18 00:00 07/07/18 04:00 Temperature 97.6 F 97.6 F Pulse Rate 85 83 87 Respiratory Rate 17 16 Blood Pressure 117/63 126/67 Pulse Oximetry 95 95 07/07/18 08:00 07/07/18 12:00 07/07/18 12:28 Temperature 97.6 F 97.1 F L Pulse Rate 88 75 Respiratory Rate 18 18 Blood Pressure 121/57 L 105/55 L Pulse Oximetry 98 99 98 Intake & Output 07/06/18 07/07/18 07/07/18 18:59 06:59 18:59 Intake Total 700 / 700 120 / 120 Output Total 200 / 200 Balance 700 / 700 -80 / -80 Weight 65.9 kg Intake: Oral 700 / 700 120 / 120 Output: Urine 200 / 200 Other: Date of Last Bowel Movement 07/06/18 # Bowel Movements 0 0 Narrative: General: Elderly female lying in bed, resting comfortably and calmly Skin: Warm and dry, no obvious lesions CV: Regular rate and rhythm Respiratory: Clear to auscultation bilaterally with no respiratory distress GI: Abdomen soft, nontender, nondistended Extremities: normal ROM Results Procedures completed during hospitalization: None - Impressions ITS Impressions Chest X-Ray 07/04/18 09:41 CONCLUSION: Minimal parenchymal changes left base . Cardiac silhouette is appropriate Discharge Plan - Discharge Disposition Patient Disposition: 01 Discharge Home - Discharge Condition Condition: Stable - Discharge Order Discharge Orders: Discharge Order (Routine); Ordered 07/07/18 Ordered By: Louann Marie R2 - Discharge Details Anticipated Discharge Date: 07/07/18 - Physicians Team Primary Care Provider: Junior Quinonez Attending Provider: Oliver Wilson Other Providers: Kin Rincon MD
--- NOTE | 2018-07-07 16:33 | ECG ---
Date Performed: 07/07/2018 Time Performed: 07:17:01 PTAGE: 83 years EKG: Rhythm appears to be sinus with runs of PACs and blocked PACs Diffuse nonspecific ST-T wave change ABNORMAL RHYTHM ECG Since PREVIOUS TRACING , there continues to be evidence of premature atrial activity and period s where there are blocked PACs. Previous tracing may have shown some evidence of Winkebach. PREVIOUS TRACIN07/06/2018 09.52 DOCTOR: Richi Rosa Interpretating Date/Time 07/07/2018 16:32:37
--- NOTE | 2018-07-07 16:35 | ECG ---
Date Performed: 07/07/2018 Time Performed: 10:43:58 PTAGE: 83 years EKG: Sinus rhythm with 4:1 AV Winkebach Right ventricular conduction disturbance Poor initial anterior forces, cannot rule out anteroseptal [place] of undetermined age Minor nonspecific T-wave change Compared to previous tra cing, this tracing clearly has AV Winkebach. Previous tracing also showed signs of this. Clinical cor relation recommended. Abnormal ECG PREVIOUS TRACING : 07/07/2018 07.17.01 DOCTOR: Richi Rosa Interpretating Date/Time 07/07/2018 16:34:19
== END 2018-07-07 16:21 | disposition home or self-care (01) ==
LOC: NEPE 08:59 → INTOOBSV 12:18 → NEDA 12:18 → N04 15:43
PROVIDERS: ADMIT Family Medicine; ATTEND Family Medicine
DX: R00.1 Bradycardia, unspecified; N17.9 Acute kidney failure, unspecified; E03.9 Hypothyroidism, unspecified; Z79.890 Hormone replacement therapy; K59.00 Constipation, unspecified; E87.1 Hypo-osmolality and hyponatremia; I10 Essential (primary) hypertension; Z79.01 Long term (current) use of anticoagulants; Z79.899 Other long term (current) drug therapy; Z82.49 Family history of ischemic heart disease and other diseases of the circulatory system; R53.1 Weakness; F41.9 Anxiety disorder, unspecified; Z83.3 Family history of diabetes mellitus; I48.0 Paroxysmal atrial fibrillation; R00.2 Palpitations; I45.10 Unspecified right bundle-branch block; R35.0 Frequency of micturition; E78.5 Hyperlipidemia, unspecified; R06.82 Tachypnea, not elsewhere classified; R61 Generalized hyperhidrosis
CPT/HCPCS: 71010; 71045; 80053; 81001; 82550; 83520; 83735; 83880; 84443; 84484; 85025; 85610; 90774; 90784; 93005; 96374; 96375; 99285; C8952; G0378; J2405; J2704; J7040

== ENCOUNTER 2018-07-08 19:51 | Inpatient (IN) ==
[2018-07-08] MEDS ORDERED: Sod Chloride 0.9% Inj 1,000 ML IV.SIG ONE (20:02)
--- NOTE | 2018-07-08 20:18 | ED ---
HPI General Chief Complaint: Abdominal Pain Stated Complaint: Medical Time Seen by Provider: 07/08/18 19:52 Source: patient and EMS Mode of arrival: EMS Limitations: no limitations and altered mental status History of Present Illness HPI narrative: Patient is an 83-year-old female who presents the emergency room with EMS after she had a syncopal episode. Patient reports that she was recently discharged from the hospital a few days ago after she is being treated for A. fib with RVR. Patient has been taking her amiodarone as well as her other antihypertensives as prescribed. Patient reports that she has been having difficulties of having a bowel movement today, reports that she gave herself 2 rectal suppositories and took a lot of medications to help with having bowel movements. EMS reports that patient had a syncopal episode shortly thereafter witnessed by her . Patient did have trauma to her head, she does take Eliquis 5 mg twice daily. Patient at this time is complaining of severe abdominal pain. Patient denies any chest pain or shortness of breath. As per EMS, patient remained hypotensive despite 1 L of IV fluids. Related Data Home Medications Medication Instructions Recorded Confirmed alprazolam 0.25 mg PO BID PRN 05/18/18 07/08/18 amiodarone 200 mg PO DAILY 05/18/18 07/08/18 apixaban [Eliquis] 5 mg PO BID 05/18/18 07/08/18 estradiol 0.5 mg PO WEEKLY 05/18/18 07/08/18 levothyroxine 50 mcg PO DAILY 05/18/18 07/08/18 potassium chloride 20 meq PO DAILY 05/18/18 07/08/18 Previous Rx's Medication Instructions Recorded amlodipine 10 mg PO DAILY 60 Days #60 tab 07/07/18 flecainide 100 mg PO BID #60 tab 07/07/18 hydrochlorothiazide 25 mg PO DAILY #60 tab 07/07/18 metoprolol tartrate 50 mg PO BID #60 tab 07/07/18 ramipril 20 mg PO BID #60 tab 07/07/18 Allergies Allergy/AdvReac Type Severity Reaction Status Date / Time cefaclor Allergy Severe RASH Verified 07/04/18 09:33 paroxetine Allergy Severe Rash Verified 07/04/18 09:33 Sulfa (Sulfonamide Allergy Severe RASH Verified 07/04/18 09:33 Antibiotics) ciprofloxacin Allergy Unknown GI UPSET Verified 07/04/18 09:33 clonidine Allergy Unknown SKIN Verified 07/04/18 09:33 IRRITATION latex bandages AdvReac Mild SKIN Uncoded 07/02/18 10:47 REDNESS, RASH Review of Systems ROS: all other systems reviewed are negative [facility] Medical History Medical History Afib (Acute) HTN (hypertension) (Acute) History of hysterectomy (Acute) Hypothyroid (Acute) Surgical History Surgical History History of hip replacement (Acute) History of radiofrequency ablation procedure for cardiac arrhythmia (Acute) Family History Family History Other CAD (coronary artery disease) Diabetes Social History Social History Substance History: No History of Abuse Second Hand Smoke Exposure: No Smoking Status: Never smoker Tobacco Type: Cigarettes How Often Do You Have a Drink Containing Alcohol: Never Recent Travel in [facility] within the Last 8 Weeks: No Recent Out of Country Travel within the Last 8 Weeks: No Immunization History Tetanus Immunization: Unable to Assess Exam Narrative Exam Narrative: GENERAL: moderate distress SKIN: Focused skin assessment warm/dry. HEAD: Atraumatic. Normocephalic. EYES: Pupils equal and round. No scleral icterus. No injection or drainage. ENT: No nasal bleeding or discharge. Mucous membranes pink and moist. NECK: Trachea midline. No JVD. CARDIOVASCULAR: Regular rate and rhythm. No murmur appreciated. RESPIRATORY: No accessory muscle use. Clear to auscultation. Breath sounds equal bilaterally. GASTROINTESTINAL: Abdomen soft, diffusely tender, nondistended. Hepatic and splenic margins not palpable. MUSCULOSKELETAL: No obvious deformities. No clubbing. No cyanosis. No edema. NEUROLOGICAL: Awake and alert. PSYCHIATRIC: Flat mood and affect Course Reevaluation(s) Reevaluation #1: Patient has been now at bedside, reports that patient was discharged from the hospital yesterday after she was admitted for A. fib with RVR. Reports that she was discharged home with a prescription for flecainide which is a new medication along with amiodarone and metoprolol. Patient took all of these medications today. reports that patient has been complaining of generalized weakness all day in addition to abdominal pain. Reports that she appeared weak. reports that he went to bed early but he saw his staggering in the hallway - he went to go and help her but reports that all of a sudden she fell and hit her head on the side of the bathroom wall and had a syncopal episode. was concerned as he was told that she was supposed to take all the medications including amiodarone and flecainide he did call Dr. Rincon's office today and was told that she was supposed to stop the amiodarone and start the flecainide. Time: 20:35 Initial Documented Vital Signs Temperature 97.5 F L 07/08/18 19:55 Pulse Rate 86 07/08/18 19:55 Respiratory Rate 16 07/08/18 19:55 Blood Pressure 70/45 L 07/08/18 19:55 Pulse Oximetry 98 07/08/18 19:55 Last Documented Vital Signs Temperature 97.5 F L 07/08/18 19:55 Pulse Rate 55 L 07/08/18 21:17 Respiratory Rate 16 07/08/18 20:33 Blood Pressure 128/58 L 07/08/18 21:17 Pulse Oximetry 97 07/08/18 20:33 Critical Care Time Critical Care Time: Yes Total Critical Care Time: 30 Attestation: Aggregate critical care time was 30 minutes. Time to perform other separately billable procedures was not included in the critical care time. My time did not include minutes spent treating any other patients simultaneously or on activities that did not directly contribute to the patient's treatment. The services I provided to this patient were to treat and/or prevent clinically significant deterioration that could result in: , decompensation, deterioration I provided critical care services requiring my management, as noted below: Chart data review, documentation time, medication orders and management, vital sign assessments/reviewing monitor data, ordering and reviewing lab tests, ordering and interpreting/reviewing x-rays and diagnostic studies, care of the patient and discussion of the patient with the admitting physicians. Medical Decision Making MDM Narrative Medical decision making narrative: During the course of the patients emergency department visit, the patients history, examination, and differential diagnosis were reviewed with the patient. The patient was placed on a telemetry monitor with oximetry and frequent blood pressure monitoring. The patient had an IV access obtained and blood work sent for analysis. The patient was initially provided IVF CTA was ordered to rule out aortic dissection as she is hypotensive complaining of severe abdominal pain The patients laboratory studies were reviewed and remarkable for WBC 9.4, hemoglobin 15.6, hematocrit 44.1, platelets 316 Sodium 129, potassium 3.4, BUN 34, creatinine 1.50, glucose 125 Radiology studies were reviewed and remarkable for : CT of the head with no acute intracranial abnormalities CTA shows no evidence of aortic aneurysm or dissection, she has diffuse colonic wall thickening most notably in the transverse colon, concerns for colitis. I did review all labs and all studies with patient and her in detail. Plan to admit her to the hospital for antibiotics for treatment of her colitis. In addition, she is bradycardic with a heart rate in the 40s most likely from taking flecainide as well as amiodarone and metoprolol combined. Patient will be admitted to the [facility] service as she was recently discharged from their service yesterday. Medical Screen Exam Complete: Yes Emergency Medical Condition: Yes Differential Diagnosis Differential Diagnosis: aortic dissection, ACS, arrythmia, electrolyte abnormality Medical Records Medical records reviewed: Yes I reviewed the patient's medical records. Lab Data Result diagrams: 07/08/18 20:05 07/08/18 20:05 Lab Results 07/08/18 07/08/18 07/08/18 Range/Units 20:03 20:05 20:05 WBC (4.0-11.0) th/mm3 RBC (4.00-5.30) mil/mm3 Hgb (11.6-15.3) gm/dL Hct (35.0-46.0) % MCV (80.0-100.0) fL MCH (27.0-34.0) pg MCHC (32.0-36.0) % RDW (11.6-17.2) % Plt Count (150-450) th/mm3 MPV (7.0-11.0) fL Neut % (Auto) (16.0-70.0) % Lymph % (Auto) (9.0-44.0) % Cameron % (Auto) (0.0-8.0) % Eos % (Auto) (0.0-4.0) % Baso % (Auto) (0.0-2.0) % Neut # (Auto) (1.8-7.7) th/mm3 Lymph # (Auto) (1.0-4.8) th/mm3 Cameron # (Auto) (0.0-0.9) th/mm3 Eos # (Auto) (0.0-0.4) th/mm3 Baso # (Auto) (0.0-0.2) th/mm3 WBC Differential Differential Comment PT 11.6 (9.8-11.6) sec INR 1.1 Ratio APTT 27.7 (23.4-31.7) sec Sodium (136-145) meq/L Potassium (3.5-5.1) meq/L Chloride (98-107) meq/L Carbon Dioxide (21.0-32.0) meq/L Anion Gap (5-15) meq/L BUN (7-18) mg/dL Creatinine (0.50-1.00) mg/dL Estimated GFR (>89) mL/min POC Glucose 125 H (68-110) mg/dl Random Glucose (74-106) mg/dL Lactic Acid 1.4 (0.4-2.0) mmol/L Calcium (8.5-10.1) mg/dL Magnesium (1.5-2.5) mg/dL Total Bilirubin (0.2-1.0) mg/dL AST (15-37) U/L ALT (10-53) U/L Alkaline Phosphatase (45-117) U/L Total Creatine Kinase (26-192) U/L Troponin I (0.02-0.05) ng/mL Total Protein (6.4-8.2) g/dL Albumin (3.4-5.0) g/dL Lipase (73-393) U/L Blood Type Antibody Screen 07/08/18 07/08/18 07/08/18 Range/Units 20:05 20:05 20:05 WBC 9.4 (4.0-11.0) th/mm3 RBC 4.83 (4.00-5.30) mil/mm3 Hgb 15.6 H (11.6-15.3) gm/dL Hct 44.1 (35.0-46.0) % MCV 91.4 (80.0-100.0) fL MCH 32.3 (27.0-34.0) pg MCHC 35.3 (32.0-36.0) % RDW 13.6 (11.6-17.2) % Plt Count 316 (150-450) th/mm3 MPV 7.7 (7.0-11.0) fL Neut % (Auto) 64.7 (16.0-70.0) % Lymph % (Auto) 27.7 (9.0-44.0) % Cameron % (Auto) 6.1 (0.0-8.0) % Eos % (Auto) 1.2 (0.0-4.0) % Baso % (Auto) 0.3 (0.0-2.0) % Neut # (Auto) 6.1 (1.8-7.7) th/mm3 Lymph # (Auto) 2.6 (1.0-4.8) th/mm3 Cameron # (Auto) 0.6 (0.0-0.9) th/mm3 Eos # (Auto) 0.1 (0.0-0.4) th/mm3 Baso # (Auto) 0.0 (0.0-0.2) th/mm3 WBC Differential . Differential Comment Auto diff final PT (9.8-11.6) sec INR Ratio APTT (23.4-31.7) sec Sodium (136-145) meq/L Potassium (3.5-5.1) meq/L Chloride (98-107) meq/L Carbon Dioxide (21.0-32.0) meq/L Anion Gap (5-15) meq/L BUN (7-18) mg/dL Creatinine (0.50-1.00) mg/dL Estimated GFR (>89) mL/min POC Glucose (68-110) mg/dl Random Glucose (74-106) mg/dL Lactic Acid (0.4-2.0) mmol/L Calcium (8.5-10.1) mg/dL Magnesium (1.5-2.5) mg/dL Total Bilirubin (0.2-1.0) mg/dL AST (15-37) U/L ALT (10-53) U/L Alkaline Phosphatase (45-117) U/L Total Creatine Kinase 50 (26-192) U/L Troponin I Less than 0.02 L (0.02-0.05) ng/mL Total Protein (6.4-8.2) g/dL Albumin (3.4-5.0) g/dL Lipase (73-393) U/L Blood Type A Positive Antibody Screen Negative 07/08/18 Range/Units 20:05 WBC (4.0-11.0) th/mm3 RBC (4.00-5.30) mil/mm3 Hgb (11.6-15.3) gm/dL Hct (35.0-46.0) % MCV (80.0-100.0) fL MCH (27.0-34.0) pg MCHC (32.0-36.0) % RDW (11.6-17.2) % Plt Count (150-450) th/mm3 MPV (7.0-11.0) fL Neut % (Auto) (16.0-70.0) % Lymph % (Auto) (9.0-44.0) % Cameron % (Auto) (0.0-8.0) % Eos % (Auto) (0.0-4.0) % Baso % (Auto) (0.0-2.0) % Neut # (Auto) (1.8-7.7) th/mm3 Lymph # (Auto) (1.0-4.8) th/mm3 Cameron # (Auto) (0.0-0.9) th/mm3 Eos # (Auto) (0.0-0.4) th/mm3 Baso # (Auto) (0.0-0.2) th/mm3 WBC Differential Differential Comment PT (9.8-11.6) sec INR Ratio APTT (23.4-31.7) sec Sodium 129 L (136-145) meq/L Potassium 3.4 L (3.5-5.1) meq/L Chloride 99 (98-107) meq/L Carbon Dioxide 19.3 L (21.0-32.0) meq/L Anion Gap 11 (5-15) meq/L BUN 34 H (7-18) mg/dL Creatinine 1.51 H (0.50-1.00) mg/dL Estimated GFR 33 L (>89) mL/min POC Glucose (68-110) mg/dl Random Glucose 125 H (74-106) mg/dL Lactic Acid (0.4-2.0) mmol/L Calcium 8.0 L (8.5-10.1) mg/dL Magnesium 1.9 (1.5-2.5) mg/dL Total Bilirubin 1.1 H (0.2-1.0) mg/dL AST 31 (15-37) U/L ALT 36 (10-53) U/L Alkaline Phosphatase 82 (45-117) U/L Total Creatine Kinase (26-192) U/L Troponin I (0.02-0.05) ng/mL Total Protein 5.6 L D (6.4-8.2) g/dL Albumin 2.9 L (3.4-5.0) g/dL Lipase 125 (73-393) U/L Blood Type Antibody Screen Imaging Data Radiologist's impression: Thoracic Aorta CT 07/08/18 20:02 CONCLUSION: 1. No evidence for aortic aneurysm or dissection as questioned. 2. Diffuse colonic wall thickening most notably in the transverse colon. Findings are most concerning for colitis, likely infectious or inflammatory in etiology. The mesenteric arteries are patent which make ischemic etiology unlikely. 3. Moderate severe sigmoid diverticulosis. 4. Coronary artery calcifications. 5. Additional ancillary findings, as above. Head CT 07/08/18 20:05 CONCLUSION: 1. No acute intracranial abnormality. 2. Atrophy and chronic white matter changes. . ECG Data EKG Prior to Arrival: Yes Attestation: I personally reviewed and interpreted this ECG as follows: Interpretation: EKG at 1954: NSR at 1954, no acute st or t wave changes Discharge Plan Discharge Disposition Patient Disposition: ED Admit(ED Internal Use Only) Discharge Condition Condition: Fair Physicians Team ED Provider: Jayne Mullins Primary Care Provider: Junior Quinonez Rxs /Orders / Referrals /Forms Prescriptions: No Action amiodarone 200 mg Tablet 200 mg PO DAILY RF: 0 alprazolam 0.25 mg Tablet 0.25 mg PO BID PRN (Reason: Anxiety) RF: 0 levothyroxine 50 mcg Tablet 50 mcg PO DAILY RF: 0 estradiol 0.5 mg Tablet 0.5 mg PO WEEKLY RF: 0 apixaban [Eliquis] 5 mg Tablet 5 mg PO BID RF: 0 potassium chloride 20 mEq Tablet Extended Release 20 meq PO DAILY RF: 0 flecainide 100 mg Tablet 100 mg PO BID Qty: 60 RF: 2 amlodipine 10 mg Tablet 10 mg PO DAILY 60 Days Qty: 60 RF: 2 ramipril 10 mg Capsule 20 mg PO BID Qty: 60 RF: 2 hydrochlorothiazide 12.5 mg Tablet 25 mg PO DAILY Qty: 60 RF: 2 metoprolol tartrate 25 mg Tablet 50 mg PO BID Qty: 60 RF: 2 Status ED Status: With Doctor
[2018-07-08 20:34] LABS: Baso % (Auto) 0.3 % (0.0-2.0); Eos # (Auto) 0.1 th/mm3 (0.0-0.4); Eos % (Auto) 1.2 % (0.0-4.0); Hematocrit 44.1 % (35.0-46.0); Hemoglobin 15.6 gm/dL (11.6-15.3); Lymph # (Auto) 2.6 th/mm3 (1.0-4.8); Lymph % (Auto) 27.7 % (9.0-44.0); Mean Corpuscular HGB Conc 35.3 % (32.0-36.0); Mean Corpuscular Hemoglobin 32.3 pg (27.0-34.0); Mean Corpuscular Volume 91.4 fL (80.0-100.0); Mean Platelet Volume 7.7 fL (7.0-11.0); Mono # (Auto) 0.6 th/mm3 (0.0-0.9); Mono % (Auto) 6.1 % (0.0-8.0); Neut # (Auto) 6.1 th/mm3 (1.8-7.7); Neut % (Auto) 64.7 % (16.0-70.0); Platelet Count 316 th/mm3 (150-450); Red Blood Count 4.83 mil/mm3 (4.00-5.30); Red Cell Distribution Width 13.6 % (11.6-17.2); White Blood Count 9.4 th/mm3 (4.0-11.0)
--- NOTE | 2018-07-08 20:34 | CT ---
EXAM DATE: 07/08/2018 8:29 PM EST AGE/SEX: 83 years / Female INDICATIONS: Dizziness. CLINICAL DATA: This is the patient's initial encounter. Patient reports that signs and symptoms have been present for 1 day and indicates a pain score of 0/10. MEDICAL/SURGICAL HISTORY: Hypertension. Hypothyroidism. Hysterectomy. Bilateral hip replacements RADIATION DOSE: 56.35 CTDI (mGy) COMPARISON: [facility] [place], CT HEAD W/O CONTRAST, 05/18/2018. . TECHNIQUE: CT of the head without contrast. Using automated exposure control and adjustment of the mA and/or kV according to patient size, radiation dose was kept as low as reasonably achievable to ob tain optimal diagnostic quality images. DICOM format image data is available electronically for revi ew and comparison. FINDINGS: Cerebrum: The ventricles are normal for age. No evidence of midline shift, mass lesion, hemorrhage or acute infarction. No extraaxial fluid collections are seen. Atrophy is again noted. There is cabinet installer lucila low-attenuation in periventricular white matter. 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 Posterior Fossa: The cerebellum and brainstem are intact. The 4th ventricle is midline. The cerebe llopontine angle is unremarkable. Extracranial: The visualized portion of the orbits is intact. Skull: The calvaria is intact. No evidence of skull fracture. CONCLUSION: 1. No acute intracranial abnormality. 2. Atrophy and chronic white matter changes. . Electronically signed by: Lyndon Lee MD Board Certified Radiologist 07/08/2018 8:33 PM EST
[2018-07-08 20:44] LABS: Activated Partial Thrombo Time 27.7 sec (23.4-31.7); INR 1.1 Ratio; Prothrombin Time 11.6 sec (9.8-11.6)
[2018-07-08 20:57] LABS: Alanine Aminotransferase 36 U/L (10-53); Albumin 2.9 g/dL (3.4-5.0); Alkaline Phosphatase 82 U/L (45-117); Anion Gap 11 meq/L (5-15); Aspartate Aminotransferase 31 U/L (15-37); Blood Urea Nitrogen 34 mg/dL (7-18); Carbon Dioxide 19.3 meq/L (21.0-32.0); Chloride 99 meq/L (98-107); Glomerular Filtration Rate 33 mL/min (>89); Glucose,Random 125 mg/dL (74-106); Lipase 125 U/L (73-393); Magnesium 1.9 mg/dL (1.5-2.5); Potassium 3.4 meq/L (3.5-5.1); Sodium 129 meq/L (136-145); Total Protein 5.6 g/dL (6.4-8.2)
--- NOTE | 2018-07-08 20:57 | CT ---
EXAM DATE: 07/08/2018 8:42 PM EST AGE/SEX: 83 years / Female INDICATIONS: Dizziness and vomiting with hypotension; rule out aneurysm. CLINICAL DATA: This is the patient's initial encounter. Patient reports that signs and symptoms have been present for 1 day and indicates a pain score of 3/10. MEDICAL/SURGICAL HISTORY: Cardiovascular disease. Hypertension. Hypothyroidism. Hysterectomy. Sanya ateral hip replacements RADIATION DOSE: 6.76 CTDI (mGy) COMPARISON: [facility], CT ABDOMEN & PELVIS W CONTRAST, 05/10/2013. . TECHNIQUE: Volumetric scanning was performed using a multi-row detector CT scanner during bolus infu lio of 98 ml Omnipaque 350 (iohexol) nonionic water-soluble contrast as a single exam dose. The da ta was post processed with a variety of visualization algorithms including full volume maximum intens ity projection, multi-planar sliding thin slab reformation, curved planar reformation, and surface re ndering techniques. Using automated exposure control and adjustment of the mA and/or kV according to patient size, radiation dose was kept as low as reasonably achievable to obtain optimal diagnostic q uality images. DICOM format image data is available electronically for review and comparison. FINDINGS: Angiographic Findings: Ascending: Normal in Cal[place] without evidence for dissection or aneurysm. Arch: Normal 3 vessel arch anatomy. Proximal arch vessels are patent. Arch is normal in caliber witho ut dissection. Descending: Normal in Caliber without evidence for dissection. Abdominal Aorta: Mild diffuse infrarenal atherosclerotic calcifications. Normal in caliber without d issection or aneurysm. Iliacs: The iliac arteries are patent and non-aneurysmal Renal Arteries: Mild bilateral renal artery stenoses secondary to bulky calcified plaque at the origi n. Mesenteric Arteries: Celiac, SMA, and DILIA are patent.: General Findings: LUNGS: Mild patchy groundglass and interstitial opacities throughout the lower lobes bilaterally. Mi ld associated volume loss and bronchiectasis. PLEURA: No effusion, significant pleural thickening or pneumothorax. MEDIASTINUM: Mild coronary calcifications. Heart is borderline in size. No significant pericardial e ffusion. Main pulmonary arteries are patent. LIVER: Redemonstration 1.4 cm low-density lesion in the right lobe of the liver which demonstrates s ubtle peripheral nodular enhancement likely reflecting a small hemangioma. Liver is otherwise unremar kable. Gallbladder is moderately distended but otherwise unremarkable. SPLEEN: Homogeneous density without enlargement. PANCREAS: Unremarkable without mass or calcification. KIDNEYS: Kidneys demonstrate symmetrical enhancement and are symmetrical in size without evidence fo r radiopaque renal calculi or hydronephrosis. Redemonstration of bilateral renal cysts. ADRENAL GLANDS: Unremarkable. BOWEL/MESENTERY: Moderate to severe sigmoid diverticulosis. Colon is diffusely decompressed which ca n accentuate the colonic wall. However, there is diffuse colonic wall thickening most notably in the transverse colon with mild pericolonic stranding. No significant free fluid or drainable fluid collec tions. No pneumatosis or free air. Small bowel loops are normal in caliber. ABDOMINAL WALL: Intact. RETROPERITONEUM: No evidence of adenopathy in the retrocrural, para-aortic, or deep pelvic regions. BLADDER: Largely obscured by beam hardening artifact. REPRODUCTIVE: Obscured. BONY STRUCTURES: Bilateral hip arthroplasties in place. Degenerative spondylosis of the thoracolumba r spine. CONCLUSION: 1. No evidence for aortic aneurysm or dissection as questioned. 2. Diffuse colonic wall thickening most notably in the transverse colon. Findings are most concernin g for colitis, likely infectious or inflammatory in etiology. The mesenteric arteries are patent whic h make ischemic etiology unlikely. 3. Moderate severe sigmoid diverticulosis. 4. Coronary artery calcifications. 5. Additional ancillary findings, as above. Electronically signed by: Nando Bass MD Board Certified Radiologist 07/08/2018 8:55 PM MAYKEL T
[2018-07-08 21:01] LABS: Creatine Kinase 50 U/L (26-192)
[2018-07-08] MEDS ORDERED: Morphine Sulfate Inj 2 MG/ML Vial IV.PUSH ONE (21:17)
[2018-07-08] MEDS ORDERED: Sod Chloride 0.9% Inj 1,000 ML IV.SIG SCH (21:30)
[2018-07-08] MEDS: Sod Chloride 0.9% Inj 1,000 ML IV.SIG SCH ×2 (21:32→22:12)
[2018-07-08] MEDS ORDERED: fentaNYL Citrate Inj 100 MCG/2 ML Ampul IV.PUSH ONE (21:34)
[2018-07-08] MEDS ORDERED: ALPRAZolam 0.25 MG Tablet PO PRN (22:26)
[2018-07-08] MEDS ORDERED: Acetaminophen 325 MG Tablet PO PRN (22:30)
[2018-07-08] MEDS ORDERED: ESTRADIOL 0.5 MG PO SCH (22:30)
--- NOTE | 2018-07-08 22:33 | P.HPFP ---
History of Present Illness Primary Care Physician: Junior Quinonez MD Chief Complaint: abdominal pain and fall History of Present Illness: Ms Ferreira is an 83 YO female with PMHx Afib s/p ablation, HTN and hypothyroidism who follows with Dr Rincon, cardiology, who presents after discharging from [facility] on 07/07 due to weakness and a fall today at home. Her provides the reporting as the pt is somnolent. Pt was discharged from the hospital yesterday with paperwork indicating her medication regimen. Patient was started on flecainide 100 mg BID on Wednesday and discharged on that medication. Her amiodarone 200 mg was to be discontinued; however, the reports that the paperwork he has indicates she was to take both flecainide as well as amiodarone and she was administered those drugs this morning. further reports that his was "out of it" all day long sleeping on the couch and when was getting ready for bed this evening he saw her leaning against the wall trying to get to the bathroom and she fell and hit her head on the shower stall. There was no blood, but she was moaning about abdominal pain on the floor. states the last time the pt had a BM was Wednesday, and did not have a BM in the hospital. She was eating little in the hospital due to the ablation procedure and being held NPO. Today the pt took at least 2 suppositories today and began pooping briskly; during her first BM in the bathroom, she put her head between her knees and said she did not feel right. She was trying to get to the bathroom for a second time when the she fell and hit her head on the shower stall. She was conscious after falling and 911 was called by her . He notes that once she was placed on a gurney she began to throw up before getting into the ambulance. While in the [facility], she was noted to have really low BP. PMHx Afib HTN Hypothyroid PSurgHx History of hysterectomy Hx of radiofrequency ablation History of hip replacement FamHx Hx of CAD and diabetes SocHx Lives with Never smoker/tobacco, EtOH or other drugs - Diagnosis (1) Hypotension (2) Head injury (3) Abdominal pain (4) Symptomatic bradycardia (5) Afib (6) Hypothyroid (7) Anxiety Review of Systems Constitutional: Reports excessive sweating (usually complains of being cold all the time), Denies chills, Denies fever(s) Eyes: Denies change in vision Ears, Nose, Mouth, and Throat: Reports nasal discharge, Denies headache(s) Cardiovascular: Denies chest pain, Denies shortness of breath Respiratory: Denies cough, Denies shortness of breath Gastrointestinal: Reports abdominal pain, Reports cramping, Denies loose stools , Denies nausea, Denies vomiting Genitourinary: Denies painful urination Skin/Breast: Reports lesions (from fall on right side of head), Denies rash Neurologic: Reports dizziness PMFSH - History History Provided By: Significant Other, Leather Splitter / EMT - Medical History Medical History: Medical History (Last Reviewed 07/08/18 @ 20:21 by Jayne Mullins) Afib HTN (hypertension) History of hysterectomy Hypothyroid - Surgical History Surgical History: Surgical History (Last Reviewed 07/08/18 @ 20:21 by Jayne Mullins) History of hip replacement History of radiofrequency ablation procedure for cardiac arrhythmia - Family History Family History: Family History (Last Reviewed 07/08/18 @ 20:21 by Jayne Mullins) Other CAD (coronary artery disease) Diabetes - Tobacco History Second Hand Smoke Exposure: No Smoking Status: Never smoker Tobacco Type: Cigarettes - Alcohol History How Often Do You Have a Drink Containing Alcohol: Never - Substance Use History Substance History: No History of Abuse - Travel History Recent Travel in the [place] Within the Last 8 Weeks: No Recent Travel Out of the Country Within the Last 8 Weeks: No - Immunization History Tetanus Immunization: Unable to Assess Medications and Allergies Active Medications: Active Medications Metronidazole/Sodium Chloride (Flagyl 500 Mg Inj) 100 mls @ 100 mls/hr IV.SIG ONCE ONE Stop: 07/08/18 22:13 Last Admin: 07/08/18 21:54 Dose: 100 mls/hr Sodium Chloride (Ns Inj) 1,000 mls @ 1,000 mls/hr IV.SIG BOLUS ERIK Stop: 07/08/18 22:29 Sodium Chloride (Ns Flush) 2 ml IV.FLUSH PRN PRN PRN Reason: FLUSH AFTER USING IV ACCESS Allergies Allergy/AdvReac Type Severity Reaction Status Date / Time cefaclor Allergy Severe RASH Verified 07/04/18 09:33 paroxetine Allergy Severe Rash Verified 07/04/18 09:33 Sulfa (Sulfonamide Allergy Severe RASH Verified 07/04/18 09:33 Antibiotics) ciprofloxacin Allergy Unknown GI UPSET Verified 07/04/18 09:33 clonidine Allergy Unknown SKIN Verified 07/04/18 09:33 IRRITATION latex bandages AdvReac Mild SKIN Uncoded 07/02/18 10:47 REDNESS, RASH Home Medications Medication Instructions Recorded Confirmed Type alprazolam 0.25 mg PO BID PRN 05/18/18 07/08/18 History amiodarone 200 mg PO DAILY 05/18/18 07/08/18 History apixaban [Eliquis] 5 mg PO BID 05/18/18 07/08/18 History estradiol 0.5 mg PO WEEKLY 05/18/18 07/08/18 History levothyroxine 50 mcg PO DAILY 05/18/18 07/08/18 History potassium chloride 20 meq PO DAILY 05/18/18 07/08/18 History Exam Vital signs: Vital Signs 07/08/18 19:55 07/08/18 20:16 07/08/18 20:33 Temperature 97.5 F L Pulse Rate 86 86 Respiratory Rate 16 16 Blood Pressure 70/45 L 83/48 L Pulse Oximetry 98 98 97 07/08/18 21:17 07/08/18 21:56 Temperature Pulse Rate 55 L 45 L Respiratory Rate 16 Blood Pressure 128/58 L 129/68 Pulse Oximetry 98 Intake & Output 07/08/18 07/08/18 07/09/18 06:59 18:59 06:59 Intake Total 100 / 100 Balance 100 / 100 Weight 65.771 kg Intake: IV 100 / 100 Rocephin Inj 1,000 MG In NS Inj 100 / 100 100 ML @ 200 mls/hr IV.SIG ONCE ONE Rx#:[id number] Narrative: GENERAL: 83 YO female lying in bed and somnolent; able to follow simple commands ; moaning in bed about abdominal pain. SKIN: Warm and dry. Multiple ecchymoses over bilateral shins and arms. HEAD: Normocephalic. There is a small contusion over the right parietal skull without evidence of bleeding EYES: No scleral icterus. No injection or drainage. NECK: Supple, trachea midline. No JVD or lymphadenopathy. CARDIOVASCULAR: Bradycardic, regular rhythm without murmurs, gallops, or rubs. RESPIRATORY: Breath sounds equal bilaterally. No accessory muscle use. GASTROINTESTINAL: Abdomen soft, exquisitely tender to palpation, mildly distended; no guarding, +BS.. MUSCULOSKELETAL: No cyanosis, or edema. Moves all extremities spontaneously. BACK: Nontender without obvious deformity. No CVA tenderness. Results - Labs Result diagrams: 07/08/18 20:05 07/08/18 20:05 Abnormal lab results 07/08/18 07/08/18 07/08/18 Range/Units 20:03 20:05 20:05 Hgb 15.6 H (11.6-15.3) gm/dL Sodium (136-145) meq/L Potassium (3.5-5.1) meq/L Carbon Dioxide (21.0-32.0) meq/L BUN (7-18) mg/dL Creatinine (0.50-1.00) mg/dL Estimated GFR (>89) mL/min POC Glucose 125 H (68-110) mg/dl Random Glucose (74-106) mg/dL Calcium (8.5-10.1) mg/dL Total Bilirubin (0.2-1.0) mg/dL Troponin I Less than 0.02 L (0.02-0.05) ng/mL Total Protein (6.4-8.2) g/dL Albumin (3.4-5.0) g/dL 07/08/18 Range/Units 20:05 Hgb (11.6-15.3) gm/dL Sodium 129 L (136-145) meq/L Potassium 3.4 L (3.5-5.1) meq/L Carbon Dioxide 19.3 L (21.0-32.0) meq/L BUN 34 H (7-18) mg/dL Creatinine 1.51 H (0.50-1.00) mg/dL Estimated GFR 33 L (>89) mL/min POC Glucose (68-110) mg/dl Random Glucose 125 H (74-106) mg/dL Calcium 8.0 L (8.5-10.1) mg/dL Total Bilirubin 1.1 H (0.2-1.0) mg/dL Troponin I (0.02-0.05) ng/mL Total Protein 5.6 L D (6.4-8.2) g/dL Albumin 2.9 L (3.4-5.0) g/dL Short CBC 07/08/18 Range/Units 20:05 WBC 9.4 (4.0-11.0) th/mm3 Hgb 15.6 H (11.6-15.3) gm/dL Hct 44.1 (35.0-46.0) % Plt Count 316 (150-450) th/mm3 BMP 07/08/18 20:05 Sodium 129 L Potassium 3.4 L Chloride 99 Carbon Dioxide 19.3 L BUN 34 H Creatinine 1.51 H Calcium 8.0 L Cardiac Enzymes 07/08/18 Range/Units 20:05 Total Creatine Kinase 50 (26-192) U/L Troponin I Less than 0.02 L (0.02-0.05) ng/mL Liver Function 07/08/18 Range/Units 20:05 Total Bilirubin 1.1 H (0.2-1.0) mg/dL AST 31 (15-37) U/L ALT 36 (10-53) U/L Alkaline Phosphatase 82 (45-117) U/L Albumin 2.9 L (3.4-5.0) g/dL - Imaging Impressions Thoracic Aorta CT 07/08/18 20:02 CONCLUSION: 1. No evidence for aortic aneurysm or dissection as questioned. 2. Diffuse colonic wall thickening most notably in the transverse colon. Findings are most concerning for colitis, likely infectious or inflammatory in etiology. The mesenteric arteries are patent which make ischemic etiology unlikely. 3. Moderate severe sigmoid diverticulosis. 4. Coronary artery calcifications. 5. Additional ancillary findings, as above. Head CT 07/08/18 20:05 CONCLUSION: 1. No acute intracranial abnormality. 2. Atrophy and chronic white matter changes. . Caprini VTE Risk Assessment Caprini VTE Risk Assessment: Moderate/High Risk (score >= 2) Caprini Risk Assessment Model: Point Value = 1 Point Value = 2 Point Value = 3 Point Value = 5 Age 41-60 Minor surgery BMI > 25 kg/m2 Swollen legs Varicose veins or History of unexplained or recurrent spontaneous Oral contraceptives or hormone replacement Sepsis (< 1 month) Serious lung disease, including pneumonia (< 1 month) Abnormal pulmonary function Acute myocardial infarction Congestive heart failure (< 1 month) History of inflammatory bowel disease Medical patient at bed rest Age 61-74 Arthroscopic surgery Major open surgery (> 45 min) Laparoscopic surgery (> 45 min) Malignancy Confined to bed (> 72 hours) Immobilizing plaster cast Central venous access Age >= 75 History of VTE Family history of VTE Factor V Leiden Prothrombin [id number] Lupus anticoagulant Anticardiolipin antibodies Elevated serum homocysteine Heparin-induced thrombocytopenia Other congenital or acquired thrombophilia Stroke (< 1 month) Elective arthroplasty Hip, pelvis, or leg fracture Acute spinal cord injury (< 1 month) Prophylaxis Regimen: Total Risk Factor Score Risk Level Prophylaxis Regimen 0-1 Low Early ambulation 2 Moderate Order ONE of the following: *Sequential Compression Device (SCD) *Heparin 5000 units SQ BID 3-4 Higher Order ONE of the following medications: *Heparin 5000 units SQ TID *Enoxaparin/Lovenox 40 mg SQ daily (WT < 150 kg, CrCl > 30 mL/min) *Enoxaparin/Lovenox 30 mg SQ daily (WT < 150 kg, CrCl > 10-29 mL/min) *Enoxaparin/Lovenox 30 mg SQ BID (WT < 150 kg, CrCl > 30 mL/min) AND/OR *Sequential Compression Device (SCD) 5 or more Highest Order ONE of the following medications: *Heparin 5000 units SQ TID (Preferred with Epidurals) *Enoxaparin/Lovenox 40 mg SQ daily (WT < 150 kg, CrCl > 30 mL/min) *Enoxaparin/Lovenox 30 mg SQ daily (WT < 150 kg, CrCl > 10-29 mL/min) *Enoxaparin/Lovenox 30 mg SQ BID (WT < 150 kg, CrCl > 30 mL/min) AND *Sequential Compression Device (SCD) Assessment and Plan - Assessment (1) Hypotension Code(s): I95.9 - Hypotension, unspecified Status: Acute (2) Head injury Code(s): S09.90XA - Unspecified injury of head, initial encounter Status: Acute (3) Abdominal pain Code(s): R10.9 - Unspecified abdominal pain Status: Acute (4) Symptomatic bradycardia Code(s): R00.1 - Bradycardia, unspecified Status: Acute (5) Afib Code(s): I48.91 - Unspecified atrial fibrillation Status: Acute (6) Hypothyroid Code(s): E03.9 - Hypothyroidism, unspecified Status: Acute (7) Anxiety Code(s): F41.9 - Anxiety disorder, unspecified Status: Acute - Assessment and Plan 83 YO female with Afib s/p ablation, hypothyroid, HTN, anxiety presents with fall and head injury w/o loss of consciousness, hypotension, symptomatic bradycardia, hypothermia and acute abdominal pain. DDx: concussion, skull fracture, colitis, diverticulitis, mesenteric ischemia, appendicitis, AAA rupture, bowel perforation, adrenal insufficiency, polypharmacy, amiodarone- induced thyroiditis. Fall with head injury -CT head negative for bleed or acute pathology; chronic age-related changes Hypotension to 74/40 -3L IVF in ED -1L bolus prior to transfer to [facility] [place] -Hold antihypertensives -Bed placed in Tredelenberg position Abdominal pain w/ WBC 9.4, lactate 1.4 -CT abdomen/pelvis and CT thoracic aorta w/evidence of colitis most notably in transverse colon and moderate-severe diverticulosis in sigmoid colon w/o perforation; no AAA -Flagyl 500 mg IV once in ED -Flagyl 500 mg IV q8h -Rocephin 1 g IV q12h -Fentanyl 25 mcg IV once in ED -Dilaudid 0.5 mg once -Zofran 4 mg IV once in ED -Repeat CT abdomen/pelvis at 01:42 w/o contrast -[facility]ospice Community Liaison consult--discussed case with Dr Montoya -Procalcitonin pending -C Diff negative Bradycardia in the 40s -Discontinue Amiodarone -Hold Antihypertensives/Metoprolol -bedrest -Fall precautions Afib -Home flecainide 100 mg BID -Eliquis 5 mg BID -Holding antihypertensives and metoprolol due to hypotension and bradycardia Hypothermia to 93.8 at 01:00 -Warm blankets Hyponatremia to 129 on admission -Correct when hypotension is resolved Hypokalemia to 3.4 -Home KCl Hypothyroidism -Home levothyroxine -Check TSH, Free T4 and free T3 -R/o acute amiodarone-induced thyroiditis HTN -Holding home antihypertensives as above Anxiety -Home xanax PRN FEN/GI/PPx: Fluids as above Electrolytes as above Nutrition - NPO GI: no ppx indicated PPx: Eliquis as above Holding Zofran due to QTc 426 ms Tylenol 650 mg PRN Pt DW Austin Mullins and Jan
[2018-07-09] MEDS ORDERED: HYDROmorphone PF Inj 2 MG/ML Vial IV.PUSH PRN (00:46)
[2018-07-09] MEDS ORDERED: Sod Chloride 0.9% Inj 1,000 ML IV.SIG SCH (00:46)
[2018-07-09 01:53] LABS: Hematocrit 40.7 % (35.0-46.0); Hemoglobin 14.1 gm/dL (11.6-15.3); Mean Corpuscular HGB Conc 34.7 % (32.0-36.0); Mean Corpuscular Hemoglobin 32.2 pg (27.0-34.0); Mean Corpuscular Volume 92.8 fL (80.0-100.0); Mean Platelet Volume 7.7 fL (7.0-11.0); Platelet Count 265 th/mm3 (150-450); Red Blood Count 4.39 mil/mm3 (4.00-5.30); Red Cell Distribution Width 13.6 % (11.6-17.2); White Blood Count 19.3 th/mm3 (4.0-11.0)
--- NOTE | 2018-07-09 01:55 | CT ---
EXAM DATE: 07/09/2018 1:41 AM EST AGE/SEX: 83 years / Female INDICATIONS: Acute abdominal pain. CLINICAL DATA: This is the patient's initial encounter. Patient reports that signs and symptoms have been present for 1 day and indicates a pain score of 10/10. MEDICAL/SURGICAL HISTORY: Hypertension. Hypothyroidism. AFIB Hysterectomy. Bilateral hip repl acement. RADIATION DOSE: 7.50 CTDI (mGy) COMPARISON: [facility], CTA THOR ABD AORTA W CONTRAST W 3D, 07/08/2018. . TECHNIQUE: Multiple contiguous axial images were obtained through the abdomen. Images were obtained using multiple row detector helical technique. Using automated exposure control and adjustment of the mA and/or kV according to patient size, radiation dose was kept as low as reasonably achievable to o btain optimal diagnostic quality images. DICOM format image data is available electronically for rev iew and comparison. FINDINGS: Lower Lungs: Mild bibasilar atelectasis Liver: The liver has a homogeneous density without space-occupying lesion except benign cyst. There i s no dilation of the biliary tree. Gallbladder is well distended Spleen: Homogeneous density without enlargement. Pancreas: Unremarkable without mass or calcification. Kidneys: Normal in size and shape. No evidence of mass or hydronephrosis. Adrenal Glands: Unremarkable. Aorta: The aorta and proximal iliac vessels are grossly unremarkable without aneurysmal dilation. Bowel/Mesentery: The bowel loops are grossly unremarkable. The cecum and sigmoid colon have a normal configuration. No definite wall thickening is identified. There is no free fluid or free air Abdominal Wall: Intact. Retroperitoneum: No evidence of adenopathy in the retrocrural, para-aortic, or deep pelvic regions. No hemorrhage is identified Bladder: Contours are smooth. Reproductive Organs: No abnormal masses or calcifications seen. Inguinal: The inguinal region is unremarkable without evidence of adenopathy. Bony Structures: Unremarkable. CONCLUSION: 1. Unremarkable study without evidence of bowel obstruction or free fluid or free air of any signifi cance. Gallbladder is well distended. Kidneys are functioning. Degenerative arthritis lower lumbar sp ine. Bibasilar consolidation likely atelectasis 2. Sigmoid diverticulosis Electronically signed by: Phil Lynn MD Board Certified Radiologist 07/09/2018 1:53 AM EST
--- NOTE | 2018-07-09 01:58 | P.CONCC ---
History of Present Illness Service: Critical care medicine Consult date: 07/09/18 Requesting Physician: Cezar Lockett III R2 Reason for Consult: hypotension Primary Care Provider: Junior Quinonez MD History of Present Illness: 83yF with history of afib with RVR s/p prior ablation by Dr. Rincon. recently admitted for recurrent afib RVR. discharged home on fleccanide, but also discharged on amiodarone. re-admitted 48h later with hypotension, bradycardia and abdominal pain. initial CT aortogram without dissection, with probable colitis. started on flagyl empirically. abdominal pain continued to worsen and hypotension was not responsive to 3L crystalloid. FM resident evaluated patient and repeated CT abd/pelvis without contrast which did not demonstrate any acute changes. patient endorses abdominal pain and rigors. denies fevers, nausea, vomiting, constipation. endorses diarrhea. denies chest pain, sob. remainder ROS negative. also noted to be hypothermic, core temp < 36. wbc increased to 19k. PMFSH - History History Provided By: Patient, Medical Record - Medical History Medical History: Medical History (Last Reviewed 07/09/18 @ 01:53 by Marlo Benjamin MD) Afib HTN (hypertension) History of hysterectomy Hypothyroid - Surgical History Surgical History: Surgical History (Last Reviewed 07/09/18 @ 01:53 by Marlo Benjamin MD) History of hip replacement History of radiofrequency ablation procedure for cardiac arrhythmia - Family History Family History: Family History (Last Reviewed 07/09/18 @ 01:53 by Marlo Benjamin MD) Other CAD (coronary artery disease) Diabetes - Social History I have reviewed the patient's Social History: Yes - Tobacco History Second Hand Smoke Exposure: No Smoking Status: Never smoker Tobacco Type: Cigarettes - Alcohol History How Often Do You Have a Drink Containing Alcohol: Never - Substance Use History Substance History: No History of Abuse - Travel History Recent Travel in the [place] Within the Last 8 Weeks: No Recent Travel Out of the Country Within the Last 8 Weeks: No - Immunization History Tetanus Immunization: Unable to Assess Medications and Allergies Active Medications: Active Medications Acetaminophen (Tylenol) 650 mg PO Q4H PRN PRN Reason: Temp > 100.4 Alprazolam (Xanax) 0.25 mg PO BID PRN PRN Reason: Anxiety Amlodipine Besylate (Norvasc) 10 mg PO DAILY ERIK Apixaban (Eliquis) 5 mg PO BID [facility] Flecainide Acetate (Tambocor) 100 mg PO BID [facility] Hydromorphone HCl (Dilaudid Pf Inj) 0.5 mg IV.PUSH ONCE PRN PRN Reason: ABDOMINAL PAIN Last Admin: 07/09/18 00:54 Dose: 0.5 mg Metronidazole/Sodium Chloride (Flagyl 500 Mg Inj) 100 mls @ 100 mls/hr IV.SIG Q8H ERIK Ceftriaxone Sodium 1,000 mg/ (Sodium Chloride) 100 mls @ 200 mls/hr IV.SIG Q12H ERIK Levothyroxine Sodium (Synthroid) 50 mcg PO DAILY@0600 [facility] Metoprolol Tartrate (Lopressor) 50 mg PO BID [facility] Non-Formulary Medication (Estradiol [Estradiol]) 0.5 mg PO WEEKLY [facility] Ondansetron HCl (Zofran Inj) 4 mg IV.PUSH Q6H PRN PRN Reason: NAUSEA OR VOMITING Potassium Chloride (K-Dur) 20 meq PO DAILY [facility] Sodium Chloride (Ns Flush) 2 ml IV.FLUSH PRN PRN PRN Reason: FLUSH AFTER USING IV ACCESS Sodium Chloride (Ns Flush) 2 ml IV.FLUSH BID ERIK Sodium Chloride (Ns Flush) 2 ml IV.FLUSH PRN PRN PRN Reason: FLUSH AFTER USING IV ACCESS Allergies Allergy/AdvReac Type Severity Reaction Status Date / Time cefaclor Allergy Severe RASH Verified 07/04/18 09:33 paroxetine Allergy Severe Rash Verified 07/04/18 09:33 Sulfa (Sulfonamide Allergy Severe RASH Verified 07/04/18 09:33 Antibiotics) ciprofloxacin Allergy Unknown GI UPSET Verified 07/04/18 09:33 clonidine Allergy Unknown SKIN Verified 07/04/18 09:33 IRRITATION latex bandages AdvReac Mild SKIN Uncoded 07/02/18 10:47 REDNESS, RASH Home Medications Medication Instructions Recorded Confirmed Type alprazolam 0.25 mg PO BID PRN 05/18/18 07/08/18 History amiodarone 200 mg PO DAILY 05/18/18 07/08/18 History apixaban [Eliquis] 5 mg PO BID 05/18/18 07/08/18 History estradiol 0.5 mg PO WEEKLY 05/18/18 07/08/18 History levothyroxine 50 mcg PO DAILY 05/18/18 07/08/18 History potassium chloride 20 meq PO DAILY 05/18/18 07/08/18 History Physical Exam Vital signs: Vital Signs 07/08/18 19:55 07/08/18 20:16 07/08/18 20:33 Temperature 36.4 C L Pulse Rate 86 86 Respiratory Rate 16 16 Blood Pressure 70/45 L 83/48 L Pulse Oximetry 98 98 97 07/08/18 21:17 07/08/18 21:56 07/08/18 22:35 Temperature Pulse Rate 55 L 45 L 46 L Respiratory Rate 16 16 Blood Pressure 128/58 L 129/68 92/54 L Pulse Oximetry 98 98 07/08/18 23:41 07/09/18 00:32 07/09/18 01:49 Temperature Pulse Rate 50 L Respiratory Rate 15 16 Blood Pressure 74/40 L 97/65 L Pulse Oximetry Intake & Output 07/08/18 07/08/18 07/09/18 06:59 18:59 06:59 Intake Total 2200 / 2200 Balance 2200 / 2200 Weight 65.771 kg Intake: IV 2200 / 2200 NS Inj 1,000 ML @ Wide Open IV. 1999 SIG BOLUS ONE Rx#:[id number] Rocephin Inj 1,000 MG In NS Inj 100 / 100 100 ML @ 200 mls/hr IV.SIG ONCE ONE Rx#:[id number] Flagyl 500 MG Inj 100 ML @ 100 100 / 100 mls/hr IV.SIG ONCE ONE Rx#: [id number] Narrative: GENERAL: elderly female, lying in bed, in distress due to abdominal pain HEENT: Normocephalic. Atraumatic. Pupils equal, round, reactive, conjugate. Mucous membranes are moist NECK: Trachea is midline. There is no JVD. CHEST: equal chest rise. nc o2. CARDIOVASCULAR: bradycardic rate of 40, afib by tele. map 71 mmHg on my eval. ABDOMEN: Soft, tender to palpation diffusely but greater in the LLQ. nondistended. no rebound or guarding. nonperitonitic. MUSCULOSKELETAL: Pulses 2+. No peripheral edema. NEUROLOGICAL: RASS 0. follows commands. no focal deficits. Septic Shock Reassessment Septic shock perfusion: reassessment completed Assessment and Plan - Assessment and Plan Plan: Assessment: 83yF with afib, now with evidence of colitis, hypotension, bradycardia. Would complete the full work-up for shock, including repeat lactate. hypotension, bradycardia, and hypothermia is concerning for thyroid changes, which can happen with amiodarone use, and will check TSH, Free t4, and cortisol levels. given clinical scenario, ischemic colitis is favored over infectious colitis, and will check procalcitonin to provide objective supporting laboratory evidence for this. Dr. Rincon's note from recent admission suggests the patient needs repeat echocardiogram, but I do not see any repeat echo, so will order this. agree with admission to the ICU. Meets criteria for severe sepsis with end-organ dysfunction and wbc, temp which meet SIRS criteria. critically ill with ongoing hypotension. Active problems: Severe sepsis hypotension acute bradycardia possible amiodarone toxicity hypothermia colitis, unclear etiology acute kidney injury recommendations: 2L crystalloid bolus continue flagyl change rocephin to cefepime iv check blood cultures c. diff PCR negative hold amiodarone, flecainide until additional data obtained trend lactates check cortisol, free t4, tsh send procalcitonin, crp, esr re-consult Dr. Rincon admit to ICU may require vasopressors to maintain end-organ perfusion 2d echo sepsis source likely colitis, unless infectious etiology ruled out. strict i/o's daily bmp, cbc. critically ill with suspected severe sepsis and end-organ dysfunction. critical care time: 41 minutes, exclusive of separately billable procedures.
[2018-07-09 02:53] LABS: Baso % (Auto) 0.2 % (0.0-2.0); Hemoglobin 15.7 gm/dL (11.6-15.3); Lymph # (Auto) 0.6 th/mm3 (1.0-4.8); Lymph % (Auto) 2.3 % (9.0-44.0); Mean Corpuscular HGB Conc 34.8 % (32.0-36.0); Mean Corpuscular Hemoglobin 32.4 pg (27.0-34.0); Mean Corpuscular Volume 93.2 fL (80.0-100.0); Mean Platelet Volume 7.4 fL (7.0-11.0); Mono % (Auto) 3.9 % (0.0-8.0); Neut # (Auto) 23.3 th/mm3 (1.8-7.7); Neut % (Auto) 93.6 % (16.0-70.0); Platelet Count 286 th/mm3 (150-450); Red Blood Count 4.83 mil/mm3 (4.00-5.30); Red Cell Distribution Width 13.9 % (11.6-17.2); White Blood Count 24.9 th/mm3 (4.0-11.0)
[2018-07-09] MEDS: Chlorhexidine Gluconate 2% 1 Pack (2 Cloths) TOPICAL SCH (03:00)
[2018-07-09 03:46] LABS: Calcium 7.2 mg/dL (8.5-10.1); Carbon Dioxide 18.9 meq/L (21.0-32.0); Potassium 3.5 meq/L (3.5-5.1)
[2018-07-09 03:57] LABS: Albumin 2.8 g/dL (3.4-5.0); Calcium-Albumin Corrected 8.2 mg/dL (8.5-10.1)
[2018-07-09] MEDS ORDERED: Chlorhexidine Gluconate 2% 1 Pack (2 Cloths) TOPICAL PRN (04:00)
[2018-07-09 04:46] LABS: C-Reactive Protein 2.44 mg/dL (0.00-0.30); Calcium 6.4 mg/dL (8.5-10.1); Carbon Dioxide 13.8 meq/L (21.0-32.0); Potassium 3.5 meq/L (3.5-5.1)
[2018-07-09 04:53] LABS: Albumin 2.2 g/dL (3.4-5.0); Calcium-Albumin Corrected 7.8 mg/dL (8.5-10.1); Free T4 (Free Thyroxine) 1.76 ng/dL (0.76-1.46); Thyroid Stimulating Hormone 1.65 uIU/mL (0.358-3.740); Triiodothyronine (T3) Free 0.86 pg/mL (2.18-3.98)
[2018-07-09] MEDS: Levothyroxine 50 MCG Tablet PO SCH (06:29)
--- NOTE | 2018-07-09 07:55 | P.PNADD ---
Addendum to Inpatient Note Reason for Addendum: Additional Documentation Additional information: At 01:30 Dr Lockett was called by nursing in [facility] that pt was becoming more progressively hypotensive to 60s/40s, bradycardia continues in mid-40s and pt was complaining more of acute abdominal pain. Dr Lockett spoke to Dr Montoya, plasterer spot, and went to see the pt. Repeat abdominal CT w/o contrast, thyroid labs, cortisol, procalcitonin, CBC were ordered. Pt was complaining more of pain than during initial interview and was very TTP, but abdomen was not tympanitic but was mildly distended. Based on exam, decision to move pt to [facility] was made as well as placing pt in Trendelenberg position which improved BP to 110/50s. Spoke to pt's at length and he was comfortable with her moving to [facility] for increased level of care. Dr Rincon will be consulted again to ensure correct medication regimen. CT was negative for acute abdomen. Labs reveal WBC 19.3 w/left shift, lactate 2.3, procalcitonin 0.1, CRP 2.44, normal TSH, elevated T4 1.76 and Free T3 0.86.
[2018-07-09] MEDS ORDERED: Metoprolol Tartrate 50 MG Tablet PO SCH (09:00)
[2018-07-09] MEDS ORDERED: Flecainide 100 MG Tablet PO SCH (09:00)
[2018-07-09] MEDS ORDERED: amLODIPine 10 MG Tablet PO SCH (09:00)
--- NOTE | 2018-07-09 10:21 | P.HPFP ---
History of Present Illness Primary Care Physician: Junior Quinonez MD Chief Complaint: abdominal pain and fall History of Present Illness: Patient seen on medical rounds with the resident physician this morning. She continues to feel poorly, stating that her abdomen is diffusely tender. She states that her abdomen is mostly tender in the left upper quadrant in the right lower quadrant. She endorses continued uncontrolled diarrhea associated with this abdominal tenderness. Physical therapy did come by to try to sit patient up, however she was unable to do so due to dizziness and abdominal discomfort with diarrhea. She denies any fevers or chills, she denies any shortness of breath, she denies any palpitations, she denies any cough. In summary, this is an 83-year-old female with a past medical history of atrial fibrillation and hypothyroidism who presents to the emergency department following dizziness with a fall today at home. She was recently discharged from the hospital on 07/07 where she was hospitalized for atrial fibrillation with RVR. During that hospitalization, her metoprolol was increased to 50 mg p.o. twice daily and she was started on flecainide. She was set to have a cardioversion performed, however she converted to normal sinus rhythm after receiving lidocaine in preparation for the cardioversion. She was discharged home on metoprolol 50 mg p.o. twice daily and flecainide. She had chronically been on amiodarone and she continued this at home in conjunction with her flecainide. She took both the amiodarone and flecainide at home yesterday afternoon prior to the dizziness and her fall. When he back arrived, she was hypotensive and bradycardic, treated with IV fluid boluses and cardiac monitoring. In the emergency department, she had received IV fluid bolus with normal saline times 3 L and was placed in Trendelenburg position due to her hypotension which responded well. She was having abdominal pain, so a CT of the abdomen was performed which showed possible colitis and she was started on IV antibiotics with cefepime and Flagyl. She had worsening abdominal pain with progressive leukocytosis, so repeat CT scan was performed due to concern for ischemic colitis versus perforation, however this repeat CT was stable with no evidence of perforationshe was then transported to the [facility] for closer monitoring and treatment for severe sepsis. She has had several visits to the hospital recently, this is her third visit within the week. Her initial emergency room visit was on 07/02/18 where she was brought in for symptomatic bradycardia. She was evaluated by cardiology and her beta-ramesh was discontinued but she was continued on her Eliquis, amlodipine and amiodarone, and she was discharged home from the emergency room. She returned to the hospital in atrial fibrillation with RVR on 07/04/18 where her medications were changed, adding metoprolol back in but increasing it to 50 mg twice daily as well as beginning her on flecainide. She converted to normal sinus rhythm with lidocaine prior to attempted cardioversion, and she was discharged home on Eliquis, metoprolol, amlodipine, amiodarone, with flecainide added per cardiology. PMHx Afib HTN Hypothyroid PSurgHx History of hysterectomy Hx of radiofrequency ablation History of hip replacement FamHx Hx of CAD and diabetes SocHx Lives with Never smoker/tobacco, EtOH or other drugs - Diagnosis (1) Sepsis associated hypotension (2) Hypotension (3) Head injury (4) Symptomatic bradycardia (5) Afib (6) Hypothyroid (7) Anxiety Inpatient Certification: I certify that the inpatient services were ordered in accordance with Medicare regulations governing the order. This includes certification that hospital inpatient services are reasonable and necessary and in the case of services not specified as inpatient-only under 42 CFR 419.22(n), that they are appropriately provided as inpatient services in accordance to with the 2-midnight benchmark under 43 CFR 412.3(e) Estimated Total Length of Stay (Days): 2 Plans for Post Hospital Care: Home [facility] - History History Provided By: Patient, Medical Record - Medical History Medical History: Medical History (Last Reviewed 07/09/18 @ 01:53 by Marlo Benjamin MD) Afib HTN (hypertension) History of hysterectomy Hypothyroid - Surgical History Surgical History: Surgical History (Last Reviewed 07/09/18 @ 01:53 by Marlo Benjamin MD) History of hip replacement History of radiofrequency ablation procedure for cardiac arrhythmia - Family History Family History: Family History (Last Reviewed 07/09/18 @ 01:53 by Marlo Benjamin MD) Other CAD (coronary artery disease) Diabetes - Tobacco History Second Hand Smoke Exposure: No Smoking Status: Never smoker Tobacco Type: Cigarettes - Alcohol History How Often Do You Have a Drink Containing Alcohol: Never - Substance Use History Substance History: No History of Abuse - Travel History Recent Travel in the [place] Within the Last 8 Weeks: No Recent Travel Out of the Country Within the Last 8 Weeks: No - Immunization History Tetanus Immunization: Unable to Assess Medications and Allergies Active Medications: Active Medications Acetaminophen (Tylenol) 650 mg PO Q4H PRN PRN Reason: Temp > 100.4 Alprazolam (Xanax) 0.25 mg PO BID PRN PRN Reason: Anxiety Apixaban (Eliquis) 5 mg PO BID [facility] Last Admin: 07/09/18 08:07 Dose: 5 mg Chlorhexidine Gluconate (Chlorhexidine 2% Cloth) 3 pack TOPICAL DAILY@0400 [facility] Stop: 07/14/18 03:59 Last Admin: 07/09/18 03:00 Dose: 3 pack Chlorhexidine Gluconate (Chlorhexidine 2% Cloth) 3 pack TOPICAL DAILY@0400 PRN PRN Reason: Extra cloth needed Stop: 07/14/18 03:59 Hydromorphone HCl (Dilaudid Pf Inj) 0.5 mg IV.PUSH ONCE PRN PRN Reason: ABDOMINAL PAIN Last Admin: 07/09/18 00:54 Dose: 0.5 mg Metronidazole/Sodium Chloride (Flagyl 500 Mg Inj) 100 mls @ 100 mls/hr IV.SIG Q8H [facility] Last Infusion: 07/09/18 09:10 Dose: Infused Cefepime HCl 2,000 mg/ Sodium (Chloride) 100 mls @ 200 mls/hr IV.SIG Q8H [facility] Last Infusion: 07/09/18 03:30 Dose: Infused Levothyroxine Sodium (Synthroid) 50 mcg PO DAILY@0600 [facility] Last Admin: 07/09/18 06:29 Dose: 50 mcg Non-Formulary Medication (Estradiol [Estradiol]) 0.5 mg PO WEEKLY [facility] Ondansetron HCl (Zofran Inj) 4 mg IV.PUSH Q6H PRN PRN Reason: NAUSEA OR VOMITING Potassium Chloride (K-Dur) 20 meq PO DAILY [facility] Last Admin: 07/09/18 08:07 Dose: 20 meq Sodium Chloride (Ns Flush) 2 ml IV.FLUSH PRN PRN PRN Reason: FLUSH AFTER USING IV ACCESS Sodium Chloride (Ns Flush) 2 ml IV.FLUSH BID [facility] Last Admin: 07/09/18 08:07 Dose: 2 ml Sodium Chloride (Ns Flush) 2 ml IV.FLUSH PRN PRN PRN Reason: FLUSH AFTER USING IV ACCESS Allergies Allergy/AdvReac Type Severity Reaction Status Date / Time cefaclor Allergy Severe RASH Verified 07/04/18 09:33 paroxetine Allergy Severe Rash Verified 07/04/18 09:33 Sulfa (Sulfonamide Allergy Severe RASH Verified 07/04/18 09:33 Antibiotics) ciprofloxacin Allergy Unknown GI UPSET Verified 07/04/18 09:33 clonidine Allergy Unknown SKIN Verified 07/04/18 09:33 IRRITATION latex bandages AdvReac Mild SKIN Uncoded 07/02/18 10:47 REDNESS, RASH Home Medications Medication Instructions Recorded Confirmed Type alprazolam 0.25 mg PO BID PRN 05/18/18 07/08/18 History amiodarone 200 mg PO DAILY 05/18/18 07/08/18 History apixaban [Eliquis] 5 mg PO BID 05/18/18 07/08/18 History estradiol 0.5 mg PO WEEKLY 05/18/18 07/08/18 History levothyroxine 50 mcg PO DAILY 05/18/18 07/08/18 History potassium chloride 20 meq PO DAILY 05/18/18 07/08/18 History Exam Vital signs: Vital Signs 07/08/18 19:55 07/08/18 20:16 07/08/18 20:33 Temperature 97.5 F L Pulse Rate 86 86 Respiratory Rate 16 16 Blood Pressure 70/45 L 83/48 L Pulse Oximetry 98 98 97 07/08/18 21:17 07/08/18 21:56 07/08/18 22:35 Temperature Pulse Rate 55 L 45 L 46 L Respiratory Rate 16 16 Blood Pressure 128/58 L 129/68 92/54 L Pulse Oximetry 98 98 07/08/18 23:41 07/09/18 00:32 07/09/18 01:49 Temperature Pulse Rate 50 L 49 L Respiratory Rate 15 77 H Blood Pressure 74/40 L 97/65 L Pulse Oximetry 07/09/18 01:57 07/09/18 02:00 07/09/18 02:02 Temperature 96.1 F L Pulse Rate 51 L 48 L 48 L Respiratory Rate 18 20 22 Blood Pressure 118/57 L 92/53 L 92/53 L Pulse Oximetry 98 98 07/09/18 02:14 07/09/18 02:16 07/09/18 02:31 Temperature Pulse Rate 53 L 53 L 50 L Respiratory Rate 24 35 H Blood Pressure 91/69 L 102/51 L Pulse Oximetry 98 100 98 07/09/18 02:46 07/09/18 03:00 07/09/18 03:15 Temperature 96.9 F L Pulse Rate 46 L 46 L 44 L Respiratory Rate 16 8 L 13 Blood Pressure 95/50 L 98/55 L 96/52 L Pulse Oximetry 100 100 100 07/09/18 03:30 07/09/18 04:00 07/09/18 04:30 Temperature Pulse Rate 56 L 44 L 45 L Respiratory Rate 26 H 15 15 Blood Pressure 93/52 L 101/55 L 97/50 L Pulse Oximetry 97 100 100 07/09/18 05:00 07/09/18 05:30 07/09/18 06:00 Temperature 96.6 F L Pulse Rate 46 L 47 L 47 L Respiratory Rate 17 5 L 11 L Blood Pressure 104/53 L 108/53 L 102/55 L Pulse Oximetry 100 99 99 07/09/18 06:30 07/09/18 06:39 07/09/18 07:00 Temperature Pulse Rate 53 L 49 L 47 L Respiratory Rate 19 16 Blood Pressure 111/56 L 111/56 L 97/50 L Pulse Oximetry 96 99 99 07/09/18 07:30 07/09/18 07:55 07/09/18 08:00 Temperature 98.2 F Pulse Rate 49 L 113 H Respiratory Rate 17 25 H Blood Pressure 102/55 L 111/55 L Pulse Oximetry 100 99 81 L 07/09/18 08:03 07/09/18 08:30 07/09/18 08:50 Temperature Pulse Rate 57 L 50 L 57 L Respiratory Rate 25 H 16 26 H Blood Pressure 111/55 L 98/54 L 104/54 L Pulse Oximetry 97 100 100 07/09/18 08:55 07/09/18 08:58 07/09/18 09:00 Temperature Pulse Rate 61 60 57 L Respiratory Rate 21 18 15 Blood Pressure 115/84 156/80 H Pulse Oximetry 90 L 92 L 99 07/09/18 09:01 Temperature Pulse Rate 55 L Respiratory Rate 33 H Blood Pressure 110/51 L Pulse Oximetry 98 Intake & Output 07/08/18 07/09/18 07/09/18 18:59 06:59 18:59 Intake Total 4480 / 4480 100 / 100 Output Total 50 / 50 Balance 4430 / 4430 100 / 100 Weight 73.5 kg Intake: IV 4300 / 4300 100 / 100 Maxipime Inj 2,000 MG In NS Inj 100 / 100 100 ML @ 200 mls/hr IV.SIG Q8H ERIK Rx#:[id number] NS Inj 1,000 ML @ 1000 mls/hr 4000 / 4000 0 / 0 IV.SIG BOLUS ERIK Rx#:[id number] Rocephin Inj 1,000 MG In NS Inj 100 / 100 100 ML @ 200 mls/hr IV.SIG ONCE ONE Rx#:[id number] Flagyl 500 MG Inj 100 ML @ 100 100 / 100 100 / 100 mls/hr IV.SIG Q8H ERIK Rx#: [id number] Oral 180 / 180 Output: Urine 50 / 50 Other: Date of Last Bowel Movement 07/09/18 07/09/18 # Bowel Movements 1 Narrative: GENERAL: Elderly appearing female, lying in bed in no obvious distress. She is significantly anxious SKIN: Warm and dry. Multiple ecchymoses over bilateral shins and arms. HEAD: Normocephalic. Small contusion on right parietal scalp without laceration , bleeding, or swelling CARDIOVASCULAR: Bradycardic, regular rhythm without murmurs, gallops, or rubs. RESPIRATORY: Breath sounds equal bilaterally. No accessory muscle use. GASTROINTESTINAL: Abdomen soft, moderately tender in left upper quadrant, epigastric region, and right lower quadrant without rebound or guarding MUSCULOSKELETAL: No cyanosis, or edema. Moves all extremities spontaneously. Results - Labs Result diagrams: 07/09/18 02:44 07/09/18 02:44 Abnormal lab results 07/08/18 07/08/18 07/08/18 Range/Units 20:03 20:05 20:05 WBC (4.0-11.0) th/mm3 Hgb 15.6 H (11.6-15.3) gm/dL Neut % (Auto) (16.0-70.0) % Lymph % (Auto) (9.0-44.0) % Neut # (Auto) (1.8-7.7) th/mm3 Lymph # (Auto) (1.0-4.8) th/mm3 [place] # (Auto) (0.0-0.9) th/mm3 Sodium (136-145) meq/L Potassium (3.5-5.1) meq/L Chloride (98-107) meq/L Carbon Dioxide (21.0-32.0) meq/L BUN (7-18) mg/dL Creatinine (0.50-1.00) mg/dL Estimated GFR (>89) mL/min POC Glucose 125 H (68-110) mg/dl Random Glucose (74-106) mg/dL Lactic Acid (0.4-2.0) mmol/L Calcium (8.5-10.1) mg/dL Calcium Adj for Albumin (8.5-10.1) mg/dL Total Bilirubin (0.2-1.0) mg/dL Troponin I Less than 0.02 L (0.02-0.05) ng/mL C-Reactive Protein (0.00-0.30) mg/dL Total Protein (6.4-8.2) g/dL Albumin (3.4-5.0) g/dL Procalcitonin (0.00-0.08) ng/mL Free T4 (0.76-1.46) ng/dL Free T3 (2.18-3.98) pg/mL 07/08/18 07/09/18 07/09/18 Range/Units 20:05 00:12 01:25 WBC 19.3 H D (4.0-11.0) th/mm3 Hgb (11.6-15.3) gm/dL Neut % (Auto) (16.0-70.0) % Lymph % (Auto) (9.0-44.0) % Neut # (Auto) (1.8-7.7) th/mm3 Lymph # (Auto) (1.0-4.8) th/mm3 [place] # (Auto) (0.0-0.9) th/mm3 Sodium 129 L (136-145) meq/L Potassium 3.4 L (3.5-5.1) meq/L Chloride (98-107) meq/L Carbon Dioxide 19.3 L (21.0-32.0) meq/L BUN 34 H (7-18) mg/dL Creatinine 1.51 H (0.50-1.00) mg/dL Estimated GFR 33 L (>89) mL/min POC Glucose 124 H (68-110) mg/dl Random Glucose 125 H (74-106) mg/dL Lactic Acid (0.4-2.0) mmol/L Calcium 8.0 L (8.5-10.1) mg/dL Calcium Adj for Albumin (8.5-10.1) mg/dL Total Bilirubin 1.1 H (0.2-1.0) mg/dL Troponin I (0.02-0.05) ng/mL C-Reactive Protein (0.00-0.30) mg/dL Total Protein 5.6 L D (6.4-8.2) g/dL Albumin 2.9 L (3.4-5.0) g/dL Procalcitonin (0.00-0.08) ng/mL Free T4 (0.76-1.46) ng/dL Free T3 (2.18-3.98) pg/mL 07/09/18 07/09/18 07/09/18 Range/Units 01:26 02:44 02:44 WBC 24.9 H (4.0-11.0) th/mm3 Hgb 15.7 H (11.6-15.3) gm/dL Neut % (Auto) 93.6 H (16.0-70.0) % Lymph % (Auto) 2.3 L (9.0-44.0) % Neut # (Auto) 23.3 H (1.8-7.7) th/mm3 Lymph # (Auto) 0.6 L (1.0-4.8) th/mm3 [place] # (Auto) 1.0 H (0.0-0.9) th/mm3 Sodium 133 L (136-145) meq/L Potassium (3.5-5.1) meq/L Chloride (98-107) meq/L Carbon Dioxide 18.9 L (21.0-32.0) meq/L BUN 32 H (7-18) mg/dL Creatinine 1.34 H (0.50-1.00) mg/dL Estimated GFR 38 L (>89) mL/min POC Glucose (68-110) mg/dl Random Glucose 135 H (74-106) mg/dL Lactic Acid (0.4-2.0) mmol/L Calcium 7.2 L* D (8.5-10.1) mg/dL Calcium Adj for Albumin 8.2 L (8.5-10.1) mg/dL Total Bilirubin (0.2-1.0) mg/dL Troponin I (0.02-0.05) ng/mL C-Reactive Protein (0.00-0.30) mg/dL Total Protein (6.4-8.2) g/dL Albumin 2.8 L (3.4-5.0) g/dL Procalcitonin 0.10 H (0.00-0.08) ng/mL Free T4 (0.76-1.46) ng/dL Free T3 (2.18-3.98) pg/mL 07/09/18 07/09/18 07/09/18 Range/Units 02:44 02:44 09:27 WBC (4.0-11.0) th/mm3 Hgb (11.6-15.3) gm/dL Neut % (Auto) (16.0-70.0) % Lymph % (Auto) (9.0-44.0) % Neut # (Auto) (1.8-7.7) th/mm3 Lymph # (Auto) (1.0-4.8) th/mm3 [place] # (Auto) (0.0-0.9) th/mm3 Sodium 135 L (136-145) meq/L Potassium (3.5-5.1) meq/L Chloride 108 H (98-107) meq/L Carbon Dioxide 13.8 L (21.0-32.0) meq/L BUN 31 H (7-18) mg/dL Creatinine 1.18 H (0.50-1.00) mg/dL Estimated GFR 44 L (>89) mL/min POC Glucose 130 H (68-110) mg/dl Random Glucose 140 H (74-106) mg/dL Lactic Acid 2.3 H (0.4-2.0) mmol/L Calcium 6.4 L* D (8.5-10.1) mg/dL Calcium Adj for Albumin 7.8 L (8.5-10.1) mg/dL Total Bilirubin (0.2-1.0) mg/dL Troponin I (0.02-0.05) ng/mL C-Reactive Protein 2.44 H (0.00-0.30) mg/dL Total Protein (6.4-8.2) g/dL Albumin 2.2 L D (3.4-5.0) g/dL Procalcitonin (0.00-0.08) ng/mL Free T4 1.76 H (0.76-1.46) ng/dL Free T3 0.86 L (2.18-3.98) pg/mL Short CBC 07/08/18 07/09/18 07/09/18 Range/Units 20:05 01:25 02:44 WBC 9.4 19.3 H D 24.9 H (4.0-11.0) th/mm3 Hgb 15.6 H 14.1 15.7 H (11.6-15.3) gm/dL Hct 44.1 40.7 45.0 (35.0-46.0) % Plt Count 316 265 286 (150-450) th/mm3 BMP 07/08/18 07/09/18 07/09/18 20:05 02:44 02:44 Sodium 129 L 133 L 135 L Potassium 3.4 L 3.5 3.5 Chloride 99 104 108 H Carbon Dioxide 19.3 L 18.9 L 13.8 L BUN 34 H 32 H 31 H Creatinine 1.51 H 1.34 H 1.18 H Calcium 8.0 L 7.2 L* D 6.4 L* D Cardiac Enzymes 07/08/18 Range/Units 20:05 Total Creatine Kinase 50 (26-192) U/L Troponin I Less than 0.02 L (0.02-0.05) ng/mL Liver Function 07/08/18 07/09/18 07/09/18 Range/Units 20:05 02:44 02:44 Total Bilirubin 1.1 H (0.2-1.0) mg/dL AST 31 (15-37) U/L ALT 36 (10-53) U/L Alkaline Phosphatase 82 (45-117) U/L Albumin 2.9 L 2.8 L 2.2 L D (3.4-5.0) g/dL - Imaging Impressions Thoracic Aorta CT 07/08/18 20:02 CONCLUSION: 1. No evidence for aortic aneurysm or dissection as questioned. 2. Diffuse colonic wall thickening most notably in the transverse colon. Findings are most concerning for colitis, likely infectious or inflammatory in etiology. The mesenteric arteries are patent which make ischemic etiology unlikely. 3. Moderate severe sigmoid diverticulosis. 4. Coronary artery calcifications. 5. Additional ancillary findings, as above. Head CT 07/08/18 20:05 CONCLUSION: 1. No acute intracranial abnormality. 2. Atrophy and chronic white matter changes. . Abdomen/Pelvis CT 07/09/18 00:44 CONCLUSION: 1. Unremarkable study without evidence of bowel obstruction or free fluid or free air of any significance. Gallbladder is well distended. Kidneys are functioning. Degenerative arthritis lower lumbar spine. Bibasilar consolidation likely atelectasis 2. Sigmoid diverticulosis Caprini VTE Risk Assessment Caprini VTE Risk Assessment: Moderate/High Risk (score >= 2) Caprini Risk Assessment Model: Point Value = 1 Point Value = 2 Point Value = 3 Point Value = 5 Age 41-60 Minor surgery BMI > 25 kg/m2 Swollen legs Varicose veins or History of unexplained or recurrent spontaneous Oral contraceptives or hormone replacement Sepsis (< 1 month) Serious lung disease, including pneumonia (< 1 month) Abnormal pulmonary function Acute myocardial infarction Congestive heart failure (< 1 month) History of inflammatory bowel disease Medical patient at bed rest Age 61-74 Arthroscopic surgery Major open surgery (> 45 min) Laparoscopic surgery (> 45 min) Malignancy Confined to bed (> 72 hours) Immobilizing plaster cast Central venous access Age >= 75 History of VTE Family history of VTE Factor V Leiden Prothrombin [id number] Lupus anticoagulant Anticardiolipin antibodies Elevated serum homocysteine Heparin-induced thrombocytopenia Other congenital or acquired thrombophilia Stroke (< 1 month) Elective arthroplasty Hip, pelvis, or leg fracture Acute spinal cord injury (< 1 month) Prophylaxis Regimen: Total Risk Factor Score Risk Level Prophylaxis Regimen 0-1 Low Early ambulation 2 Moderate Order ONE of the following: *Sequential Compression Device (SCD) *Heparin 5000 units SQ BID 3-4 Higher Order ONE of the following medications: *Heparin 5000 units SQ TID *Enoxaparin/Lovenox 40 mg SQ daily (WT < 150 kg, CrCl > 30 mL/min) *Enoxaparin/Lovenox 30 mg SQ daily (WT < 150 kg, CrCl > 10-29 mL/min) *Enoxaparin/Lovenox 30 mg SQ BID (WT < 150 kg, CrCl > 30 mL/min) AND/OR *Sequential Compression Device (SCD) 5 or more Highest Order ONE of the following medications: *Heparin 5000 units SQ TID (Preferred with Epidurals) *Enoxaparin/Lovenox 40 mg SQ daily (WT < 150 kg, CrCl > 30 mL/min) *Enoxaparin/Lovenox 30 mg SQ daily (WT < 150 kg, CrCl > 10-29 mL/min) *Enoxaparin/Lovenox 30 mg SQ BID (WT < 150 kg, CrCl > 30 mL/min) AND *Sequential Compression Device (SCD) Assessment and Plan - Assessment (1) Sepsis associated hypotension Code(s): A41.9 - Sepsis, unspecified organism; I95.9 - Hypotension, unspecified Status: Acute Plan: Sepsis associated with colitis, hypertension, and bradycardia Critical care consulted in management of patient IV antibiotics: Cefepime 2 g IV every 8 hours Flagyl 500 mg IV every 8 hours Status post normal saline bolus 1 L x4 Blood cultures ordered and pending Stool C. difficile screen negative Leukocytosis worsening, 9.4 on admission and currently 24.9 with a 93.6% neutrophil Lactic acid trend 1.4 -> 2.3 -> 1.9 CRP elevated at 2.44 TSH within normal limits but free T4 elevated at 1.76, free T3 decreased at 0.86 2D echo ordered and pending Thoracic aorta CT: No evidence for aortic aneurysm or dissection, diffuse colonic wall thickening most notably in the transverse colon. Findings are most concerning for colitis, likely infectious or inflammatory in etiology. The mesenteric arteries are patent which makes ischemic etiology unlikely. Moderate severe sigmoid diverticulosis. Head CT: No acute intracranial abnormality. Atrophy and chronic white matter changes Abdominal CT without contrast: Unremarkable study without evidence of bowel obstruction or free fluid or free air of any significance. Gallbladder is well distended. Kidneys are functioning. Degenerative arthritis lower lumbar spine. Bibasilar consolidation, likely atelectasis. Sigmoid diverticulosis. (2) Hypotension Code(s): I95.9 - Hypotension, unspecified Status: Acute Plan: Multifactorial, likely from sepsis and side effect of medication interaction -Patient did take flecainide and amiodarone together at home Patient's sales support engineer is Dr. Rincon -he has been consulted to evaluate patient -We are attempting to contact Dr. Rincon to discuss medication management of her atrial fibrillation Currently holding all cardiac meds and antihypertensives including amlodipine, metoprolol, and flecainide -Likely to continue flecainide after discussion with Dr. Rincon Monitor on continuous telemetry (3) Head injury Code(s): S09.90XA - Unspecified injury of head, initial encounter Status: Acute Plan: CT head negative for intracranial bleed or fracture -Monitor neurologic status (4) Symptomatic bradycardia Code(s): R00.1 - Bradycardia, unspecified Status: Acute Plan: Continued bradycardia in the 40s and 50s Blood pressure has responded to fluid boluses without requiring pressor support Cardiology consulted for medication management of her atrial fibrillation with bradycardia -bedrest -Fall precautions (5) Afib Code(s): I48.91 - Unspecified atrial fibrillation Status: Acute Plan: Currently holding flecainide, amiodarone, amlodipine, and metoprolol Continue to monitor on telemetry Cardiology consulted (Dr. Rincon) for medication management Continue Eliquis (6) Hypothyroid Code(s): E03.9 - Hypothyroidism, unspecified Status: Acute Plan: Continue levothyroxine 50 mcg daily (7) Anxiety Code(s): F41.9 - Anxiety disorder, unspecified Status: Acute Plan: Continue home Xanax 0.25 mg p.o. twice daily H&P: Quality - VTE Deep Vein Thrombosis/Pulmonary Embolism Present on Admission: No
[2018-07-09] MEDS ORDERED: Albumin Human 5% Inj 250 ML IV.SIG ONE ×2 (14:09→14:15)
--- NOTE | 2018-07-09 16:11 | MB ---
cc: Cameron Frank DO DATE: 07/09/2018 REASON FOR CONSULTATION: Atrial fibrillation. HISTORY OF PRESENT ILLNESS: Rachna Ferreira is a pleasant 83-year-old female who is known to my partner Dr. Rincon and presented to [facility] due to abdominal tenderness. She was recently here with tachyarrhythmias due to atrial fibrillation with rapid ventricular response. She was supposed to have her medications changed from amiodarone to flecainide, but she was discharged home on both. She was also being considered for a cardioversion but ended up converting to normal sinus rhythm on lidocaine, and so she was discharged home. Upon arriving home, she took both amiodarone and flecainide. She started feeling dizzy and had a fall. Upon arrival to the emergency room, she was found to be hypotensive and mildly bradycardic. This was treated with IV fluids. During the night, critical care was consulted, and she was transferred to the ICU due to hypotension as well as abdominal pain. She was evaluated by Dr. Benjamin. Since that time, she has been given around 4.5 L of fluid, and her blood pressure has stabilized although borderline low. In seeing her, she feels somewhat better but still has abdominal pain. PAST MEDICAL HISTORY: 1. Atrial fibrillation. 2. Hypertension. 3. Hypothyroidism. PAST SURGICAL HISTORY: 1. Atrial fibrillation ablation (04/20/2017). 2. Hysterectomy. 3. Hip replacement. 4. Atrial flutter ablation (08/15/2012). 5. Previous atrial fibrillation ablation (07/15/2010). ALLERGIES: 1. SULFACHLOR. 2. PAROXETINE. 3. SULFA. 4. CIPRO. 5. CLONIDINE. MEDICATIONS: 1. Potassium 20 mEq daily. 2. Synthroid 50 mcg daily. 3. Eliquis 5 mg b.i.d. 4. Amiodarone 200 mg daily. 5. Estradiol 0.5 mg weekly. 6. Xanax 0.25 mg as needed. 7. Metoprolol tartrate 50 mg b.i.d. 8. Flecainide 100 mg b.i.d. 9. Norvasc 10 mg daily. 10. Hydrochlorothiazide 25 mg daily. 11. Ramipril 20 mg b.i.d. FAMILY HISTORY: Denies premature coronary artery disease or sudden cardiac within the family. SOCIAL HISTORY: The patient currently lives with her . Denies tobacco, alcohol, or drug abuse. REVIEW OF SYSTEMS: Fourteen systems were reviewed including osteopathic. Pertinent positives and negatives above. Otherwise negative. PHYSICAL EXAMINATION: VITAL SIGNS: Temperature 98.2, heart rate 57, blood pressure 110/51, respirations 15, pulse oximetry 99% on 2 L. GENERAL: The patient is in no acute distress. Alert, awake and oriented x3. HEENT: Extraocular muscles intact. Mucous membranes moist. NECK: Supple. No JVD at 45 degrees. No carotid bruits heard bilaterally. Carotid upstroke is brisk in nature. HEART: Regular rhythm, but bradycardic with no murmurs, gallops, or rubs. LUNGS: Clear to auscultation bilaterally. No wheezes, rales, or rhonchi. ABDOMEN: Soft. Mildly tender in the left upper quadrant with no guarding or rebound noted. EXTREMITIES: No clubbing, cyanosis, or edema. Femoral and distal pulses are intact bilaterally. NEUROLOGIC: No focal deficits. SKIN: Warm, dry, and intact. OSTEOPATHIC: No kyphoscoliosis, lordosis, or paraspinal tender points. LABORATORY DATA: Hemoglobin 15.7, hematocrit 45.0, platelets 286, white blood cell count 24.9. Potassium 3.5, BUN 31, creatinine 1.18. Troponin less than 0.02. Electrocardiogram (07/08/2018 at 1955): Sinus rhythm. Incomplete right bundle branch block. Nonspecific ST-T wave changes. IMPRESSION: 1. Abdominal pain, which appears to be due to colitis. 2. Sepsis. 3. Hypotension responsive to IV fluids. 4. Acute bradycardia secondary to medications. 5. Difficult to control atrial fibrillation with history of atrial fibrillation ablation x2 and atrial flutter ablation x1. 6. Previous hypothermia. 7. Acute kidney injury. RECOMMENDATIONS: 1. Ms. Ferreira presented with a septic-like picture, possibly due to colitis. Per the report, mesenteric arteries are patent which makes an ischemic etiology unlikely. 2. She was also found to be hypotensive as well as bradycardic. This is most likely a combination of sepsis as well as being on multiple medications to control her heart rate. 3. We will continue her on flecainide as if she goes into atrial fibrillation with rapid ventricular response, this would most likely make her hypotension even worse. 4. Hypotension has responded to IV fluids. 5. We will stop her amiodarone. 6. We will recheck a 2-D echo. 7. As her GFR is greater than 35, we will continue her on the flecainide at 100 mg b.i.d. If her kidney function gets worse, this will have to be changed. Thank you for allowing me to see Rachna Ferreira. If there are any questions, please do not hesitate to call. Cameron Frank DO VGP/rm , 03:45 PM , 03:57 PM
[2018-07-09] MEDS: Flecainide 100 MG Tablet PO SCH (20:58)
[2018-07-10 04:46] LABS: Baso % (Auto) 0.2 % (0.0-2.0); Eos % (Auto) 0.2 % (0.0-4.0); Hematocrit 33.7 % (35.0-46.0); Hemoglobin 11.8 gm/dL (11.6-15.3); Lymph # (Auto) 1.1 th/mm3 (1.0-4.8); Lymph % (Auto) 6.2 % (9.0-44.0); Mean Corpuscular HGB Conc 35.1 % (32.0-36.0); Mean Corpuscular Hemoglobin 32.4 pg (27.0-34.0); Mean Corpuscular Volume 92.5 fL (80.0-100.0); Mono % (Auto) 5.7 % (0.0-8.0); Neut # (Auto) 15.3 th/mm3 (1.8-7.7); Neut % (Auto) 87.7 % (16.0-70.0); Platelet Count 214 th/mm3 (150-450); Red Blood Count 3.64 mil/mm3 (4.00-5.30); Red Cell Distribution Width 14.2 % (11.6-17.2); White Blood Count 17.4 th/mm3 (4.0-11.0)
[2018-07-10 05:05] LABS: Calcium 7.8 mg/dL (8.5-10.1); Carbon Dioxide 16.6 meq/L (21.0-32.0); Magnesium 1.8 mg/dL (1.5-2.5); Phosphorus 3.2 mg/dL (2.5-4.9); Potassium 3.4 meq/L (3.5-5.1)
[2018-07-10] MEDS: Chlorhexidine Gluconate 2% 1 Pack (2 Cloths) TOPICAL SCH (05:05)
[2018-07-10] MEDS: Levothyroxine 50 MCG Tablet PO SCH (05:05)
[2018-07-10] MEDS: Flecainide 100 MG Tablet PO SCH ×2 (10:16→20:02)
--- NOTE | 2018-07-10 10:30 | P.PNCC ---
Subjective Subjective Remarks/Hospital Course: 07/10: Afebrile. Patient awake and alert. Overnight heart rate range 48-60's. Flecainide dose was held last p.m. and review of the MAR. Today the patient was noted to be sustaining a MAP 60-61, patient received 250 cc 5% albumin and remained normotensive. Patient tolerating clear liquid diet. Objective Vital Signs / I&O: Vital Signs 07/09/18 10:30 07/09/18 11:00 07/09/18 11:30 Temperature Pulse Rate 53 L 55 L 54 L Respiratory Rate 19 11 L 10 L Blood Pressure 106/54 L 110/52 L 110/53 L Pulse Oximetry 99 96 99 07/09/18 12:00 07/09/18 12:30 07/09/18 13:00 Temperature 97.3 F L Pulse Rate 56 L 55 L 58 L Respiratory Rate 24 23 17 Blood Pressure 110/55 L 105/51 L 107/54 L Pulse Oximetry 98 99 98 07/09/18 13:30 07/09/18 13:38 07/09/18 13:43 Temperature Pulse Rate 56 L 40 L 39 L Respiratory Rate 20 16 21 Blood Pressure 108/55 L 94/46 L 92/44 L Pulse Oximetry 99 99 98 07/09/18 14:00 07/09/18 14:14 07/09/18 14:15 Temperature Pulse Rate 38 L 39 L 42 L Respiratory Rate 19 29 H 21 Blood Pressure 85/44 L 92/49 L 88/52 L Pulse Oximetry 98 97 96 07/09/18 14:21 07/09/18 14:26 07/09/18 14:30 Temperature Pulse Rate 39 L 40 L 40 L Respiratory Rate 19 20 15 Blood Pressure 114/56 L 113/56 L 108/53 L Pulse Oximetry 99 97 99 07/09/18 14:35 07/09/18 14:41 07/09/18 14:42 Temperature Pulse Rate 39 L 40 L 42 L Respiratory Rate 14 20 22 Blood Pressure 102/51 L 88/51 L 95/49 L Pulse Oximetry 96 96 97 07/09/18 14:45 07/09/18 14:50 07/09/18 14:55 Temperature Pulse Rate 40 L 39 L 39 L Respiratory Rate 25 H 20 19 Blood Pressure 98/55 L 107/52 L 99/51 L Pulse Oximetry 96 98 97 07/09/18 15:00 07/09/18 15:10 07/09/18 15:15 Temperature Pulse Rate 40 L 41 L 40 L Respiratory Rate 21 22 19 Blood Pressure 95/49 L 106/53 L 113/53 L Pulse Oximetry 97 99 99 07/09/18 15:20 07/09/18 15:25 07/09/18 15:30 Temperature Pulse Rate 42 L 40 L 40 L Respiratory Rate 21 17 18 Blood Pressure 106/52 L 101/54 L 102/55 L Pulse Oximetry 98 98 99 07/09/18 15:35 07/09/18 15:40 07/09/18 15:45 Temperature Pulse Rate 41 L 41 L 40 L Respiratory Rate 21 21 21 Blood Pressure 105/53 L 101/55 L 98/52 L Pulse Oximetry 98 97 96 07/09/18 15:50 07/09/18 15:55 07/09/18 15:56 Temperature Pulse Rate 40 L 39 L 42 L Respiratory Rate 19 25 H 17 Blood Pressure 94/47 L 96/46 L 95/50 L Pulse Oximetry 97 96 98 07/09/18 16:00 07/09/18 16:01 07/09/18 16:05 Temperature 96.3 F L Pulse Rate 46 L 47 L 43 L Respiratory Rate 26 H 16 22 Blood Pressure 104/51 L 104/51 L 102/54 L Pulse Oximetry 94 L 95 96 07/09/18 16:11 07/09/18 16:15 07/09/18 16:20 Temperature Pulse Rate 64 41 L 42 L Respiratory Rate 26 H 19 27 H Blood Pressure 110/66 107/53 L 104/53 L Pulse Oximetry 97 98 94 L 07/09/18 16:31 07/09/18 16:35 07/09/18 16:41 Temperature Pulse Rate 39 L 39 L 42 L Respiratory Rate 20 21 23 Blood Pressure 89/45 L 89/47 L 101/51 L Pulse Oximetry 98 99 98 07/09/18 16:45 07/09/18 16:50 07/09/18 16:55 Temperature Pulse Rate 42 L 42 L 40 L Respiratory Rate 25 H 29 H 19 Blood Pressure 104/54 L 115/52 L 106/53 L Pulse Oximetry 98 97 98 07/09/18 17:00 07/09/18 17:05 07/09/18 17:10 Temperature Pulse Rate 41 L 42 L 43 L Respiratory Rate 20 21 24 Blood Pressure 105/55 L 103/52 L 93/47 L Pulse Oximetry 98 98 96 07/09/18 17:15 07/09/18 17:20 07/09/18 17:25 Temperature Pulse Rate 43 L 42 L 40 L Respiratory Rate 17 19 20 Blood Pressure 111/53 L 113/56 L 103/51 L Pulse Oximetry 96 99 97 07/09/18 17:30 07/09/18 17:35 07/09/18 17:40 Temperature Pulse Rate 40 L 39 L 40 L Respiratory Rate 20 20 20 Blood Pressure 104/52 L 98/52 L 99/54 L Pulse Oximetry 98 98 99 07/09/18 17:45 07/09/18 17:50 07/09/18 17:55 Temperature Pulse Rate 41 L 40 L 41 L Respiratory Rate 19 19 17 Blood Pressure 107/55 L 101/52 L 104/53 L Pulse Oximetry 99 99 99 07/09/18 18:00 07/09/18 18:05 07/09/18 18:10 Temperature Pulse Rate 42 L 42 L 41 L Respiratory Rate 20 21 20 Blood Pressure 105/53 L 105/54 L 101/51 L Pulse Oximetry 99 99 99 07/09/18 18:15 07/09/18 18:20 07/09/18 18:25 Temperature Pulse Rate 44 L 42 L 41 L Respiratory Rate 25 H 21 20 Blood Pressure 94/52 L 96/51 L 96/51 L Pulse Oximetry 98 97 97 07/09/18 18:30 07/09/18 18:35 07/09/18 18:40 Temperature Pulse Rate 40 L 40 L 40 L Respiratory Rate 16 18 15 Blood Pressure 98/51 L 103/52 L 104/54 L Pulse Oximetry 97 96 99 07/09/18 18:45 07/09/18 18:51 07/09/18 18:56 Temperature Pulse Rate 41 L 45 L 43 L Respiratory Rate 21 21 28 H Blood Pressure 103/54 L 99/56 L 96/53 L Pulse Oximetry 99 98 98 07/09/18 19:00 07/09/18 19:05 07/09/18 19:44 Temperature Pulse Rate 42 L 42 L Respiratory Rate 19 15 Blood Pressure 115/56 L 114/55 L Pulse Oximetry 98 99 96 07/09/18 20:00 07/09/18 21:36 07/09/18 21:40 Temperature 97.5 F L Pulse Rate 43 L 41 L 40 L Respiratory Rate 19 18 Blood Pressure 112/56 L 107/53 L Pulse Oximetry 97 99 99 07/09/18 21:45 07/09/18 21:50 07/09/18 21:55 Temperature Pulse Rate 40 L 42 L 46 L Respiratory Rate 19 19 24 Blood Pressure 103/53 L 108/56 L 115/54 L Pulse Oximetry 99 99 98 07/09/18 22:00 07/09/18 22:05 07/09/18 22:10 Temperature Pulse Rate 50 L 117 H 44 L Respiratory Rate 21 29 H 21 Blood Pressure 118/57 L 122/68 114/55 L Pulse Oximetry 97 97 98 07/09/18 22:15 07/09/18 22:20 07/09/18 22:25 Temperature Pulse Rate 46 L 42 L 41 L Respiratory Rate 25 H 19 19 Blood Pressure 104/53 L 103/50 L 103/53 L Pulse Oximetry 97 97 98 07/09/18 22:30 07/09/18 22:35 07/09/18 22:40 Temperature Pulse Rate 41 L 41 L 42 L Respiratory Rate 18 21 17 Blood Pressure 110/53 L 108/53 L 110/54 L Pulse Oximetry 97 97 97 07/09/18 22:45 07/09/18 22:51 07/09/18 22:55 Temperature Pulse Rate 42 L 41 L 41 L Respiratory Rate 19 18 17 Blood Pressure 102/51 L 113/56 L 121/54 L Pulse Oximetry 98 98 98 07/09/18 23:00 07/09/18 23:05 07/09/18 23:10 Temperature Pulse Rate 44 L 48 L 42 L Respiratory Rate 20 23 19 Blood Pressure 116/58 L 101/54 L 115/53 L Pulse Oximetry 98 98 97 07/09/18 23:15 07/09/18 23:20 07/09/18 23:25 Temperature Pulse Rate 42 L 42 L 42 L Respiratory Rate 21 22 19 Blood Pressure 108/54 L 113/56 L 120/56 L Pulse Oximetry 97 97 99 07/09/18 23:30 07/09/18 23:35 07/09/18 23:40 Temperature Pulse Rate 43 L 43 L 43 L Respiratory Rate 21 19 18 Blood Pressure 119/57 L 120/58 L 114/56 L Pulse Oximetry 98 98 98 07/09/18 23:45 07/09/18 23:50 07/09/18 23:58 Temperature Pulse Rate 43 L 43 L 50 L Respiratory Rate 18 22 22 Blood Pressure 113/55 L 115/56 L 128/61 Pulse Oximetry 98 98 97 07/10/18 00:00 07/10/18 00:01 07/10/18 00:06 Temperature 97.7 F Pulse Rate 100 H 111 H 44 L Respiratory Rate 30 H 40 H 20 Blood Pressure 91/57 L 119/56 L Pulse Oximetry 88 L 96 97 07/10/18 00:10 07/10/18 01:00 07/10/18 02:00 Temperature Pulse Rate 43 L 39 L 43 L Respiratory Rate 28 H 18 23 Blood Pressure 107/55 L 87/49 L Pulse Oximetry 97 99 94 L 07/10/18 02:01 07/10/18 03:00 07/10/18 04:00 Temperature 97.0 F L Pulse Rate 41 L 45 L 52 L Respiratory Rate 20 20 22 Blood Pressure 122/54 L 111/59 L Pulse Oximetry 93 L 94 L 96 07/10/18 04:04 07/10/18 05:00 07/10/18 06:00 Temperature Pulse Rate 51 L 45 L 49 L Respiratory Rate 23 19 18 Blood Pressure 125/60 Pulse Oximetry 96 96 98 07/10/18 07:00 07/10/18 07:21 07/10/18 07:32 Temperature Pulse Rate 47 L 54 L Respiratory Rate 17 25 H Blood Pressure 113/55 L Pulse Oximetry 95 91 L 94 L 07/10/18 08:00 Temperature 97.6 F Pulse Rate 42 L Respiratory Rate 19 Blood Pressure 117/58 L Pulse Oximetry 95 Intake & Output 07/09/18 07/10/18 07/10/18 18:59 06:59 18:59 Intake Total 1030 / 1030 660 / 660 Output Total 700 / 700 Balance 330 / 330 660 / 660 Weight 72.4 kg Intake: IV 550 / 550 300 / 300 Buminate 5% Inj 250 ML @ 250 250 / 250 mls/hr IV.SIG ONCE ONE Rx#: [id number] Maxipime Inj 2,000 MG In NS Inj 100 / 100 200 / 200 100 ML @ 200 mls/hr IV.SIG Q8H ERIK Rx#:[id number] NS Inj 1,000 ML @ 1000 mls/hr 0 / 0 IV.SIG BOLUS ERIK Rx#:[id number] Flagyl 500 MG Inj 100 ML @ 100 200 / 200 100 / 100 mls/hr IV.SIG Q8H ERIK Rx#: [id number] Oral 480 / 480 360 / 360 Output: Urine 700 / 700 Other: # Voids 2 # Incontinent Voids 1 Date of Last Bowel Movement 07/09/18 07/09/18 07/10/18 # Bowel Movements 3 2 Result Diagrams: 07/10/18 04:05 07/10/18 04:05 Other Results: Most recent lab results Calcium 7.8 mg/dL (8.5-10.1) L D 07/10/18 04:05 Phosphorus 3.2 mg/dL (2.5-4.9) 07/10/18 04:05 Magnesium 1.8 mg/dL (1.5-2.5) 07/10/18 04:05 Objective Remarks: GENERAL: Chronically ill-appearing elderly female in no apparent distress SKIN: Warm and dry. HEAD: Atraumatic. Normocephalic. EYES: Pupils equal and round. No scleral icterus. No injection or drainage. ENT: No nasal bleeding or discharge. Mucous membranes pink and moist. NECK: Trachea midline. No JVD. CARDIOVASCULAR: Normal rate, regular rhythm. RESPIRATORY: No accessory muscle use. Clear to auscultation. Breath sounds equal bilaterally. GASTROINTESTINAL: Abdomen soft, non-tender, nondistended. No guarding. MUSCULOSKELETAL: Extremities without clubbing, cyanosis, or edema. Small multiple areas of ecchymotic bruising on forearms, no obvious deformities. NEUROLOGICAL: Awake and alert. RASS 0. No gross focal/sensory deficits. Follows commands in all 4 extremities. Assessment and Plan - Assessment and Plan Plan: Active problems: Severe sepsis Hypotension-resolved acute bradycardia possible amiodarone toxicity hypothermia colitis, unclear etiology acute kidney injury Plan Received 2L crystalloid bolus on 07/09. Received 250 cc 5% albumin last evening continue flagyl change rocephin to cefepime iv F/U blood cultures c. diff PCR negative hold amiodarone Begin flecainide per recommendations of Cardiology trend lactates cortisol, free t4, tsh-[id number] procalcitonin, crp, esr-elevated re-consult Dr. Rincon- currently Dr. Frank was informed per [facility] may require vasopressors to maintain end-organ perfusion 2d echo sepsis source likely colitis, unless infectious etiology ruled out. strict i/o's daily bmp, cbc. Level 3 followup Code Status: Full Discussed Condition With: [employer], Dr Morales, [facility]
--- NOTE | 2018-07-10 10:35 | P.PNFP ---
Subjective Interval history: Patient seen at bedside this morning in the presence of her sister. Patient reports overall doing well and feeling much better. She reports little to no abdominal pain as well as cessation of her nausea. She reports breathing well without any chest pain or palpitations. Patient also expressed excitement as her daughter will be visiting here from [place], next week. Plan to continue antibiotics as well as keep her in the ICU due to her bradycardia were discussed in depth. Patient also understands that her flecainide treatment will be continued had no further questions. Patient thanked us for our care. <Steve Ruiz - 07/10/18 10:40> Results - Labs Result diagrams: 07/10/18 04:05 07/10/18 04:05 <Oliver Wilson - 07/10/18 22:22> Abnormal lab results 07/10/18 07/10/18 07/10/18 Range/Units 04:05 04:05 11:38 WBC 17.4 H (4.0-11.0) th/mm3 RBC 3.64 L (4.00-5.30) mil/mm3 Hct 33.7 L (35.0-46.0) % Neut % (Auto) 87.7 H (16.0-70.0) % Lymph % (Auto) 6.2 L (9.0-44.0) % Neut # (Auto) 15.3 H (1.8-7.7) th/mm3 Gove # (Auto) 1.0 H (0.0-0.9) th/mm3 Potassium 3.4 L (3.5-5.1) meq/L Carbon Dioxide 16.6 L (21.0-32.0) meq/L BUN 35 H (7-18) mg/dL Creatinine 1.52 H (0.50-1.00) mg/dL Estimated GFR 33 L (>89) mL/min POC Glucose 135 H (68-110) mg/dl Random Glucose 123 H (74-106) mg/dL Calcium 7.8 L D (8.5-10.1) mg/dL Short CBC 07/10/18 Range/Units 04:05 WBC 17.4 H (4.0-11.0) th/mm3 Hgb 11.8 D (11.6-15.3) gm/dL Hct 33.7 L (35.0-46.0) % Plt Count 214 (150-450) th/mm3 BMP 07/10/18 04:05 Sodium 137 Potassium 3.4 L Chloride 106 Carbon Dioxide 16.6 L BUN 35 H Creatinine 1.52 H Calcium 7.8 L D <Oliver Wilson - 07/10/18 22:22> Abnormal lab results 07/10/18 07/10/18 Range/Units 04:05 04:05 WBC 17.4 H (4.0-11.0) th/mm3 RBC 3.64 L (4.00-5.30) mil/mm3 Hct 33.7 L (35.0-46.0) % Neut % (Auto) 87.7 H (16.0-70.0) % Lymph % (Auto) 6.2 L (9.0-44.0) % Neut # (Auto) 15.3 H (1.8-7.7) th/mm3 Gove # (Auto) 1.0 H (0.0-0.9) th/mm3 Potassium 3.4 L (3.5-5.1) meq/L Carbon Dioxide 16.6 L (21.0-32.0) meq/L BUN 35 H (7-18) mg/dL Creatinine 1.52 H (0.50-1.00) mg/dL Estimated GFR 33 L (>89) mL/min Random Glucose 123 H (74-106) mg/dL Calcium 7.8 L D (8.5-10.1) mg/dL Short CBC 07/10/18 Range/Units 04:05 WBC 17.4 H (4.0-11.0) th/mm3 Hgb 11.8 D (11.6-15.3) gm/dL Hct 33.7 L (35.0-46.0) % Plt Count 214 (150-450) th/mm3 BMP 07/10/18 04:05 Sodium 137 Potassium 3.4 L Chloride 106 Carbon Dioxide 16.6 L BUN 35 H Creatinine 1.52 H Calcium 7.8 L D <Steve Ruiz Feliciano - 07/10/18 10:35> Physical Exam Vital signs: Vital Signs 07/09/18 22:25 07/09/18 22:30 07/09/18 22:35 Temperature Pulse Rate 41 L 41 L 41 L Respiratory Rate 19 18 21 Blood Pressure 103/53 L 110/53 L 108/53 L Pulse Oximetry 98 97 97 07/09/18 22:40 07/09/18 22:45 07/09/18 22:51 Temperature Pulse Rate 42 L 42 L 41 L Respiratory Rate 17 19 18 Blood Pressure 110/54 L 102/51 L 113/56 L Pulse Oximetry 97 98 98 07/09/18 22:55 07/09/18 23:00 07/09/18 23:05 Temperature Pulse Rate 41 L 44 L 48 L Respiratory Rate 17 20 23 Blood Pressure 121/54 L 116/58 L 101/54 L Pulse Oximetry 98 98 98 07/09/18 23:10 07/09/18 23:15 07/09/18 23:20 Temperature Pulse Rate 42 L 42 L 42 L Respiratory Rate 19 21 22 Blood Pressure 115/53 L 108/54 L 113/56 L Pulse Oximetry 97 97 97 07/09/18 23:25 07/09/18 23:30 07/09/18 23:35 Temperature Pulse Rate 42 L 43 L 43 L Respiratory Rate 19 21 19 Blood Pressure 120/56 L 119/57 L 120/58 L Pulse Oximetry 99 98 98 07/09/18 23:40 07/09/18 23:45 07/09/18 23:50 Temperature Pulse Rate 43 L 43 L 43 L Respiratory Rate 18 18 22 Blood Pressure 114/56 L 113/55 L 115/56 L Pulse Oximetry 98 98 98 07/09/18 23:58 07/10/18 00:00 07/10/18 00:01 Temperature 97.7 F Pulse Rate 50 L 100 H 111 H Respiratory Rate 22 30 H 40 H Blood Pressure 128/61 91/57 L Pulse Oximetry 97 88 L 96 07/10/18 00:06 07/10/18 00:10 07/10/18 01:00 Temperature Pulse Rate 44 L 43 L 39 L Respiratory Rate 20 28 H 18 Blood Pressure 119/56 L 107/55 L 87/49 L Pulse Oximetry 97 97 99 07/10/18 02:00 07/10/18 02:01 07/10/18 03:00 Temperature Pulse Rate 43 L 41 L 45 L Respiratory Rate 23 20 20 Blood Pressure 122/54 L 111/59 L Pulse Oximetry 94 L 93 L 94 L 07/10/18 04:00 07/10/18 04:04 07/10/18 05:00 Temperature 97.0 F L Pulse Rate 52 L 51 L 45 L Respiratory Rate 22 23 19 Blood Pressure 125/60 Pulse Oximetry 96 96 96 07/10/18 06:00 07/10/18 07:00 07/10/18 07:21 Temperature Pulse Rate 49 L 47 L 54 L Respiratory Rate 18 17 25 H Blood Pressure 113/55 L Pulse Oximetry 98 95 91 L 07/10/18 07:32 07/10/18 08:00 07/10/18 09:00 Temperature 97.6 F Pulse Rate 42 L 55 L Respiratory Rate 19 27 H Blood Pressure 117/58 L 130/63 Pulse Oximetry 94 L 95 94 L 07/10/18 10:00 07/10/18 11:00 07/10/18 12:00 Temperature 96.4 F L Pulse Rate 48 L 51 L 47 L Respiratory Rate 27 H 35 H 19 Blood Pressure 127/59 L 139/63 118/56 L Pulse Oximetry 94 L 92 L 94 L 07/10/18 13:00 07/10/18 14:00 07/10/18 14:01 Temperature Pulse Rate 47 L 50 L 57 L Respiratory Rate 29 H 25 H 49 H Blood Pressure 132/61 131/57 L Pulse Oximetry 92 L 92 L 93 L 07/10/18 15:00 07/10/18 15:01 07/10/18 16:00 Temperature 97.6 F Pulse Rate 48 L 49 L 51 L Respiratory Rate 12 14 19 Blood Pressure 103/52 L 113/51 L Pulse Oximetry 93 L 93 L 94 L 07/10/18 16:01 07/10/18 17:00 07/10/18 17:01 Temperature Pulse Rate 53 L 88 66 Respiratory Rate 19 29 H 26 H Blood Pressure 113/51 L 141/66 H Pulse Oximetry 93 L 94 L 92 L 07/10/18 18:00 07/10/18 19:00 07/10/18 19:30 Temperature Pulse Rate 48 L 56 L Respiratory Rate 21 24 Blood Pressure 135/63 148/66 H Pulse Oximetry 96 97 94 L 07/10/18 20:00 Temperature 97.6 F Pulse Rate 56 L Respiratory Rate 19 Blood Pressure 142/64 H Pulse Oximetry 95 Intake & Output 07/10/18 07/10/18 07/11/18 06:59 18:59 06:59 Intake Total 660 / 660 1020 / 1020 Output Total 700 / 700 Balance 660 / 660 320 / 320 Weight 72.4 kg Intake: IV 300 / 300 300 / 300 Maxipime Inj 2,000 MG In NS Inj 200 / 200 100 / 100 100 ML @ 200 mls/hr IV.SIG Q8H ERIK Rx#:[id number] Flagyl 500 MG Inj 100 ML @ 100 100 / 100 200 / 200 mls/hr IV.SIG Q8H ERIK Rx#: [id number] Oral 360 / 360 720 / 720 Output: Urine 700 / 700 Other: # Voids 2 # Incontinent Voids 1 Date of Last Bowel Movement 07/09/18 07/10/18 07/10/18 # Bowel Movements 2 4 <Oliver Wilson - 07/10/18 22:22> Vital Signs 07/09/18 11:00 07/09/18 11:30 07/09/18 12:00 Temperature 97.3 F L Pulse Rate 55 L 54 L 56 L Respiratory Rate 11 L 10 L 24 Blood Pressure 110/52 L 110/53 L 110/55 L Pulse Oximetry 96 99 98 07/09/18 12:30 07/09/18 13:00 07/09/18 13:30 Temperature Pulse Rate 55 L 58 L 56 L Respiratory Rate 23 17 20 Blood Pressure 105/51 L 107/54 L 108/55 L Pulse Oximetry 99 98 99 07/09/18 13:38 07/09/18 13:43 07/09/18 14:00 Temperature Pulse Rate 40 L 39 L 38 L Respiratory Rate 16 21 19 Blood Pressure 94/46 L 92/44 L 85/44 L Pulse Oximetry 99 98 98 07/09/18 14:14 07/09/18 14:15 07/09/18 14:21 Temperature Pulse Rate 39 L 42 L 39 L Respiratory Rate 29 H 21 19 Blood Pressure 92/49 L 88/52 L 114/56 L Pulse Oximetry 97 96 99 07/09/18 14:26 07/09/18 14:30 07/09/18 14:35 Temperature Pulse Rate 40 L 40 L 39 L Respiratory Rate 20 15 14 Blood Pressure 113/56 L 108/53 L 102/51 L Pulse Oximetry 97 99 96 07/09/18 14:41 07/09/18 14:42 07/09/18 14:45 Temperature Pulse Rate 40 L 42 L 40 L Respiratory Rate 20 22 25 H Blood Pressure 88/51 L 95/49 L 98/55 L Pulse Oximetry 96 97 96 07/09/18 14:50 07/09/18 14:55 07/09/18 15:00 Temperature Pulse Rate 39 L 39 L 40 L Respiratory Rate 20 19 21 Blood Pressure 107/52 L 99/51 L 95/49 L Pulse Oximetry 98 97 97 07/09/18 15:10 07/09/18 15:15 07/09/18 15:20 Temperature Pulse Rate 41 L 40 L 42 L Respiratory Rate 22 19 21 Blood Pressure 106/53 L 113/53 L 106/52 L Pulse Oximetry 99 99 98 07/09/18 15:25 07/09/18 15:30 07/09/18 15:35 Temperature Pulse Rate 40 L 40 L 41 L Respiratory Rate 17 18 21 Blood Pressure 101/54 L 102/55 L 105/53 L Pulse Oximetry 98 99 98 07/09/18 15:40 07/09/18 15:45 07/09/18 15:50 Temperature Pulse Rate 41 L 40 L 40 L Respiratory Rate 21 21 19 Blood Pressure 101/55 L 98/52 L 94/47 L Pulse Oximetry 97 96 97 07/09/18 15:55 07/09/18 15:56 07/09/18 16:00 Temperature 96.3 F L Pulse Rate 39 L 42 L 46 L Respiratory Rate 25 H 17 26 H Blood Pressure 96/46 L 95/50 L 104/51 L Pulse Oximetry 96 98 94 L 07/09/18 16:01 07/09/18 16:05 07/09/18 16:11 Temperature Pulse Rate 47 L 43 L 64 Respiratory Rate 16 22 26 H Blood Pressure 104/51 L 102/54 L 110/66 Pulse Oximetry 95 96 97 07/09/18 16:15 07/09/18 16:20 07/09/18 16:31 Temperature Pulse Rate 41 L 42 L 39 L Respiratory Rate 19 27 H 20 Blood Pressure 107/53 L 104/53 L 89/45 L Pulse Oximetry 98 94 L 98 07/09/18 16:35 07/09/18 16:41 07/09/18 16:45 Temperature Pulse Rate 39 L 42 L 42 L Respiratory Rate 21 23 25 H Blood Pressure 89/47 L 101/51 L 104/54 L Pulse Oximetry 99 98 98 07/09/18 16:50 07/09/18 16:55 07/09/18 17:00 Temperature Pulse Rate 42 L 40 L 41 L Respiratory Rate 29 H 19 20 Blood Pressure 115/52 L 106/53 L 105/55 L Pulse Oximetry 97 98 98 07/09/18 17:05 07/09/18 17:10 07/09/18 17:15 Temperature Pulse Rate 42 L 43 L 43 L Respiratory Rate 21 24 17 Blood Pressure 103/52 L 93/47 L 111/53 L Pulse Oximetry 98 96 96 07/09/18 17:20 07/09/18 17:25 07/09/18 17:30 Temperature Pulse Rate 42 L 40 L 40 L Respiratory Rate 19 20 20 Blood Pressure 113/56 L 103/51 L 104/52 L Pulse Oximetry 99 97 98 07/09/18 17:35 07/09/18 17:40 07/09/18 17:45 Temperature Pulse Rate 39 L 40 L 41 L Respiratory Rate 20 20 19 Blood Pressure 98/52 L 99/54 L 107/55 L Pulse Oximetry 98 99 99 07/09/18 17:50 07/09/18 17:55 07/09/18 18:00 Temperature Pulse Rate 40 L 41 L 42 L Respiratory Rate 19 17 20 Blood Pressure 101/52 L 104/53 L 105/53 L Pulse Oximetry 99 99 99 07/09/18 18:05 07/09/18 18:10 07/09/18 18:15 Temperature Pulse Rate 42 L 41 L 44 L Respiratory Rate 21 20 25 H Blood Pressure 105/54 L 101/51 L 94/52 L Pulse Oximetry 99 99 98 07/09/18 18:20 07/09/18 18:25 07/09/18 18:30 Temperature Pulse Rate 42 L 41 L 40 L Respiratory Rate 21 20 16 Blood Pressure 96/51 L 96/51 L 98/51 L Pulse Oximetry 97 97 97 07/09/18 18:35 07/09/18 18:40 07/09/18 18:45 Temperature Pulse Rate 40 L 40 L 41 L Respiratory Rate 18 15 21 Blood Pressure 103/52 L 104/54 L 103/54 L Pulse Oximetry 96 99 99 07/09/18 18:51 07/09/18 18:56 07/09/18 19:00 Temperature Pulse Rate 45 L 43 L 42 L Respiratory Rate 21 28 H 19 Blood Pressure 99/56 L 96/53 L 115/56 L Pulse Oximetry 98 98 98 07/09/18 19:05 07/09/18 19:44 07/09/18 20:00 Temperature 97.5 F L Pulse Rate 42 L 43 L Respiratory Rate 15 Blood Pressure 114/55 L Pulse Oximetry 99 96 97 07/09/18 21:36 07/09/18 21:40 07/09/18 21:45 Temperature Pulse Rate 41 L 40 L 40 L Respiratory Rate 19 18 19 Blood Pressure 112/56 L 107/53 L 103/53 L Pulse Oximetry 99 99 99 07/09/18 21:50 07/09/18 21:55 07/09/18 22:00 Temperature Pulse Rate 42 L 46 L 50 L Respiratory Rate 19 24 21 Blood Pressure 108/56 L 115/54 L 118/57 L Pulse Oximetry 99 98 97 07/09/18 22:05 07/09/18 22:10 07/09/18 22:15 Temperature Pulse Rate 117 H 44 L 46 L Respiratory Rate 29 H 21 25 H Blood Pressure 122/68 114/55 L 104/53 L Pulse Oximetry 97 98 97 07/09/18 22:20 07/09/18 22:25 07/09/18 22:30 Temperature Pulse Rate 42 L 41 L 41 L Respiratory Rate 19 19 18 Blood Pressure 103/50 L 103/53 L 110/53 L Pulse Oximetry 97 98 97 07/09/18 22:35 07/09/18 22:40 07/09/18 22:45 Temperature Pulse Rate 41 L 42 L 42 L Respiratory Rate 21 17 19 Blood Pressure 108/53 L 110/54 L 102/51 L Pulse Oximetry 97 97 98 07/09/18 22:51 07/09/18 22:55 07/09/18 23:00 Temperature Pulse Rate 41 L 41 L 44 L Respiratory Rate 18 17 20 Blood Pressure 113/56 L 121/54 L 116/58 L Pulse Oximetry 98 98 98 07/09/18 23:05 07/09/18 23:10 07/09/18 23:15 Temperature Pulse Rate 48 L 42 L 42 L Respiratory Rate 23 19 21 Blood Pressure 101/54 L 115/53 L 108/54 L Pulse Oximetry 98 97 97 07/09/18 23:20 12/22/18 23:25 07/09/18 23:30 Temperature Pulse Rate 42 L 42 L 43 L Respiratory Rate 22 19 21 Blood Pressure 113/56 L 120/56 L 119/57 L Pulse Oximetry 97 99 98 07/09/18 23:35 07/09/18 23:40 07/09/18 23:45 Temperature Pulse Rate 43 L 43 L 43 L Respiratory Rate 19 18 18 Blood Pressure 120/58 L 114/56 L 113/55 L Pulse Oximetry 98 98 98 07/09/18 23:50 07/09/18 23:58 07/10/18 00:00 Temperature 97.7 F Pulse Rate 43 L 50 L 100 H Respiratory Rate 22 22 30 H Blood Pressure 115/56 L 128/61 Pulse Oximetry 98 97 88 L 07/10/18 00:01 07/10/18 00:06 07/10/18 00:10 Temperature Pulse Rate 111 H 44 L 43 L Respiratory Rate 40 H 20 28 H Blood Pressure 91/57 L 119/56 L 107/55 L Pulse Oximetry 96 97 97 07/10/18 01:00 07/10/18 02:00 07/10/18 02:01 Temperature Pulse Rate 39 L 43 L 41 L Respiratory Rate 18 23 20 Blood Pressure 87/49 L 122/54 L Pulse Oximetry 99 94 L 93 L 07/10/18 03:00 07/10/18 04:00 07/10/18 04:04 Temperature 97.0 F L Pulse Rate 45 L 52 L 51 L Respiratory Rate 20 22 23 Blood Pressure 111/59 L 125/60 Pulse Oximetry 94 L 96 96 07/10/18 05:00 07/10/18 06:00 07/10/18 07:00 Temperature Pulse Rate 45 L 49 L 47 L Respiratory Rate 19 18 17 Blood Pressure Pulse Oximetry 96 98 95 07/10/18 07:21 07/10/18 07:32 07/10/18 08:00 Temperature 97.6 F Pulse Rate 54 L 42 L Respiratory Rate 25 H 19 Blood Pressure 113/55 L 117/58 L Pulse Oximetry 91 L 94 L 95 07/10/18 09:00 07/10/18 10:00 Temperature Pulse Rate 55 L 48 L Respiratory Rate 27 H 27 H Blood Pressure 130/63 127/59 L Pulse Oximetry 94 L 94 L Intake & Output 07/09/18 07/10/18 07/10/18 18:59 06:59 18:59 Intake Total 1030 / 1030 660 / 660 Output Total 700 / 700 Balance 330 / 330 660 / 660 Weight 72.4 kg Intake: IV 550 / 550 300 / 300 Buminate 5% Inj 250 ML @ 250 250 / 250 mls/hr IV.SIG ONCE ONE Rx#: [id number] Maxipime Inj 2,000 MG In NS Inj 100 / 100 200 / 200 100 ML @ 200 mls/hr IV.SIG Q8H ERIK Rx#:[id number] NS Inj 1,000 ML @ 1000 mls/hr 0 / 0 IV.SIG BOLUS ERIK Rx#:[id number] Flagyl 500 MG Inj 100 ML @ 100 200 / 200 100 / 100 mls/hr IV.SIG Q8H ERIK Rx#: [id number] Oral 480 / 480 360 / 360 Output: Urine 700 / 700 Other: # Voids 2 # Incontinent Voids 1 Date of Last Bowel Movement 07/09/18 07/09/18 07/10/18 # Bowel Movements 3 2 <Steve Ruiz - 07/10/18 10:35> Narrative: GENERAL: Elderly appearing female, lying in bed in no obvious distress. Appears emotionally related and labile. SKIN: Warm and dry. Multiple ecchymoses over bilateral shins and arms. HEAD: Normocephalic. Small contusion on right parietal scalp without laceration , bleeding, or swelling CARDIOVASCULAR: Bradycardic at 50 bpm, regular rhythm without murmurs, gallops, or rubs. RESPIRATORY: Breath sounds equal bilaterally. No accessory muscle use. GASTROINTESTINAL: Abdomen soft and nontender in any quadrant. Normal bowel sounds appreciated. Nondistended. MUSCULOSKELETAL: No cyanosis, or edema. Moves all extremities spontaneously. <Steve Ruiz - 07/10/18 10:40> Assessment and Plan - Assessment (1) Sepsis associated hypotension Code(s): A41.9 - Sepsis, unspecified organism; I95.9 - Hypotension, unspecified Status: Acute (2) Hypotension Code(s): I95.9 - Hypotension, unspecified Status: Acute (3) Head injury Code(s): S09.90XA - Unspecified injury of head, initial encounter Status: Acute (4) Symptomatic bradycardia Code(s): R00.1 - Bradycardia, unspecified Status: Acute (5) Afib Code(s): I48.91 - Unspecified atrial fibrillation Status: Acute (6) Hypothyroid Code(s): E03.9 - Hypothyroidism, unspecified Status: Acute (7) Anxiety Code(s): F41.9 - Anxiety disorder, unspecified Status: Acute <Oliver Wilson - 07/10/18 22:22> (1) Sepsis associated hypotension Code(s): A41.9 - Sepsis, unspecified organism; I95.9 - Hypotension, unspecified Status: Acute Plan: Sepsis associated with colitis, hypertension, and bradycardia. -Critical care consulted in management of patient -Blood cultures on 07/08- to date -Leukocytosis downtrending -Currently normotensive Plan: -Continue IV antibiotics: Cefepime 2 g IV every 8 hours (07/09) Flagyl 500 mg IV every 8 hours (07/09) -2D echo ordered and pending -Continue to hold Xanax (2) Hypotension Code(s): I95.9 - Hypotension, unspecified Status: Acute Plan: Currently normotensive because most likely due to combination of flexion and amiodarone as well as dehydration due to profuse diarrhea -Continue to follow with cardiac recommendations -Per cardiology restart flecainide -Detailed amiodarone -Monitor on telemetry -Patient did take flecainide and amiodarone together at home -Continue to hold antihypertensives (3) Head injury Code(s): S09.90XA - Unspecified injury of head, initial encounter Status: Acute Plan: CT head negative for intracranial bleed or fracture -Monitor neurologic status (4) Symptomatic bradycardia Code(s): R00.1 - Bradycardia, unspecified Status: Acute Plan: Continued bradycardia in 50s Blood pressure has responded to fluid boluses without requiring pressor support -Continue to hold Xanax -Continue to hold antihypertensives -Continue plan per cardiology -Up out of bed with assistance -Fall precautions -Continue to monitor on telemetry (5) Afib Code(s): I48.91 - Unspecified atrial fibrillation Status: Acute Plan: Currently holding amiodarone, amlodipine, and metoprolol -Continue to monitor on telemetry -Continue to follow cardiology recommendations -Continue Eliquis -Restart flecainide 100mg BID (6) Hypothyroid Code(s): E03.9 - Hypothyroidism, unspecified Status: Acute Plan: Continue levothyroxine 50 mcg daily (7) Anxiety Code(s): F41.9 - Anxiety disorder, unspecified Status: Acute Plan: Hold home Xanax 0.25 mg p.o. due to hypotension and bradycardia <Carmen Steve Marquez Feliciano - 07/10/18 17:58> - Assessment and Plan Hospital course: -Status post normal saline bolus 1 L x4 -Stool C. difficile screen negative -Leukocytosis worsening, 9.4 on admission and currently 24.9 with a 93.6% neutrophil -Lactic acid trend 1.4 -> 2.3 -> 1.9 -CRP elevated at 2.44 -TSH within normal limits but free T4 elevated at 1.76, free T3 decreased at 0.86 -Thoracic aorta CT: No evidence for aortic aneurysm or dissection, diffuse colonic wall thickening most notably in the transverse colon. Findings are most concerning for colitis, likely infectious or inflammatory in etiology. The mesenteric arteries are patent which makes ischemic etiology unlikely. Moderate severe sigmoid diverticulosis. -Head CT: No acute intracranial abnormality. Atrophy and chronic white matter changes -Abdominal CT without contrast: Unremarkable study without evidence of bowel obstruction or free fluid or free air of any significance. Gallbladder is well distended. Kidneys are functioning. Degenerative arthritis lower lumbar spine. Bibasilar consolidation, likely atelectasis. Sigmoid diverticulosis. <Steve Ruiz - 07/10/18 17:58>
--- NOTE | 2018-07-10 14:47 | P.PNCA ---
Subjective Interval history: No events overnight Feels much better, no longer having abdominal pain Heart rates bradycardic overnight Medications and Allergies Active Medications: Active Medications Acetaminophen (Tylenol) 650 mg PO Q4H PRN PRN Reason: Temp > 100.4 Apixaban (Eliquis) 5 mg PO BID [facility] Last Admin: 07/10/18 08:52 Dose: 5 mg Chlorhexidine Gluconate (Chlorhexidine 2% Cloth) 3 pack TOPICAL DAILY@0400 [facility] Stop: 07/14/18 03:59 Last Admin: 07/10/18 05:05 Dose: Not Given Chlorhexidine Gluconate (Chlorhexidine 2% Cloth) 3 pack TOPICAL DAILY@0400 PRN PRN Reason: Extra cloth needed Stop: 07/14/18 03:59 Flecainide Acetate (Tambocor) 100 mg PO BID [facility] Last Admin: 07/10/18 10:16 Dose: 100 mg Hydromorphone HCl (Dilaudid Pf Inj) 0.5 mg IV.PUSH ONCE PRN PRN Reason: ABDOMINAL PAIN Last Admin: 07/09/18 00:54 Dose: 0.5 mg Metronidazole/Sodium Chloride (Flagyl 500 Mg Inj) 100 mls @ 100 mls/hr IV.SIG Q8H [facility] Last Infusion: 07/10/18 10:00 Dose: Infused Levothyroxine Sodium (Synthroid) 50 mcg PO DAILY@0600 [facility] Last Admin: 07/10/18 05:05 Dose: 50 mcg Non-Formulary Medication (Estradiol [Estradiol]) 0.5 mg PO WEEKLY [facility] Ondansetron HCl (Zofran Inj) 4 mg IV.PUSH Q6H PRN PRN Reason: NAUSEA OR VOMITING Last Admin: 07/10/18 14:06 Dose: 4 mg Potassium Chloride (K-Dur) 20 meq PO DAILY [facility] Last Admin: 07/10/18 08:52 Dose: 20 meq Sodium Chloride (Ns Flush) 2 ml IV.FLUSH BID [facility] Last Admin: 07/10/18 08:52 Dose: 2 ml Sodium Chloride (Ns Flush) 2 ml IV.FLUSH PRN PRN PRN Reason: FLUSH AFTER USING IV ACCESS Allergies Allergy/AdvReac Type Severity Reaction Status Date / Time cefaclor Allergy Severe RASH Verified 07/04/18 09:33 paroxetine Allergy Severe Rash Verified 07/04/18 09:33 Sulfa (Sulfonamide Allergy Severe RASH Verified 07/04/18 09:33 Antibiotics) ciprofloxacin Allergy Unknown GI UPSET Verified 07/04/18 09:33 clonidine Allergy Unknown SKIN Verified 07/04/18 09:33 IRRITATION latex bandages AdvReac Mild SKIN Uncoded 07/02/18 10:47 REDNESS, RASH Home Medications Medication Instructions Recorded Confirmed Type alprazolam 0.25 mg PO BID PRN 05/18/18 07/08/18 History amiodarone 200 mg PO DAILY 05/18/18 07/08/18 History apixaban [Eliquis] 5 mg PO BID 05/18/18 07/08/18 History estradiol 0.5 mg PO WEEKLY 05/18/18 07/08/18 History levothyroxine 50 mcg PO DAILY 05/18/18 07/08/18 History potassium chloride 20 meq PO DAILY 05/18/18 07/08/18 History Physical Exam Vital signs: Vital Signs 07/09/18 14:42 07/09/18 14:45 07/09/18 14:50 Temperature Pulse Rate 42 L 40 L 39 L Respiratory Rate 22 25 H 20 Blood Pressure 95/49 L 98/55 L 107/52 L Pulse Oximetry 97 96 98 07/09/18 14:55 07/09/18 15:00 07/09/18 15:10 Temperature Pulse Rate 39 L 40 L 41 L Respiratory Rate 19 21 22 Blood Pressure 99/51 L 95/49 L 106/53 L Pulse Oximetry 97 97 99 07/09/18 15:15 07/09/18 15:20 07/09/18 15:25 Temperature Pulse Rate 40 L 42 L 40 L Respiratory Rate 19 21 17 Blood Pressure 113/53 L 106/52 L 101/54 L Pulse Oximetry 99 98 98 07/09/18 15:30 07/09/18 15:35 07/09/18 15:40 Temperature Pulse Rate 40 L 41 L 41 L Respiratory Rate 18 21 21 Blood Pressure 102/55 L 105/53 L 101/55 L Pulse Oximetry 99 98 97 07/09/18 15:45 07/09/18 15:50 07/09/18 15:55 Temperature Pulse Rate 40 L 40 L 39 L Respiratory Rate 21 19 25 H Blood Pressure 98/52 L 94/47 L 96/46 L Pulse Oximetry 96 97 96 07/09/18 15:56 07/09/18 16:00 07/09/18 16:01 Temperature 96.3 F L Pulse Rate 42 L 46 L 47 L Respiratory Rate 17 26 H 16 Blood Pressure 95/50 L 104/51 L 104/51 L Pulse Oximetry 98 94 L 95 07/09/18 16:05 07/09/18 16:11 07/09/18 16:15 Temperature Pulse Rate 43 L 64 41 L Respiratory Rate 22 26 H 19 Blood Pressure 102/54 L 110/66 107/53 L Pulse Oximetry 96 97 98 07/09/18 16:20 07/09/18 16:31 07/09/18 16:35 Temperature Pulse Rate 42 L 39 L 39 L Respiratory Rate 27 H 20 21 Blood Pressure 104/53 L 89/45 L 89/47 L Pulse Oximetry 94 L 98 99 07/09/18 16:41 07/09/18 16:45 07/09/18 16:50 Temperature Pulse Rate 42 L 42 L 42 L Respiratory Rate 23 25 H 29 H Blood Pressure 101/51 L 104/54 L 115/52 L Pulse Oximetry 98 98 97 07/09/18 16:55 07/09/18 17:00 07/09/18 17:05 Temperature Pulse Rate 40 L 41 L 42 L Respiratory Rate 19 20 21 Blood Pressure 106/53 L 105/55 L 103/52 L Pulse Oximetry 98 98 98 07/09/18 17:10 07/09/18 17:15 07/09/18 17:20 Temperature Pulse Rate 43 L 43 L 42 L Respiratory Rate 24 17 19 Blood Pressure 93/47 L 111/53 L 113/56 L Pulse Oximetry 96 96 99 07/09/18 17:25 07/09/18 17:30 07/09/18 17:35 Temperature Pulse Rate 40 L 40 L 39 L Respiratory Rate 20 20 20 Blood Pressure 103/51 L 104/52 L 98/52 L Pulse Oximetry 97 98 98 07/09/18 17:40 07/09/18 17:45 07/09/18 17:50 Temperature Pulse Rate 40 L 41 L 40 L Respiratory Rate 20 19 19 Blood Pressure 99/54 L 107/55 L 101/52 L Pulse Oximetry 99 99 99 07/09/18 17:55 07/09/18 18:00 07/09/18 18:05 Temperature Pulse Rate 41 L 42 L 42 L Respiratory Rate 17 20 21 Blood Pressure 104/53 L 105/53 L 105/54 L Pulse Oximetry 99 99 99 07/09/18 18:10 07/09/18 18:15 07/09/18 18:20 Temperature Pulse Rate 41 L 44 L 42 L Respiratory Rate 20 25 H 21 Blood Pressure 101/51 L 94/52 L 96/51 L Pulse Oximetry 99 98 97 07/09/18 18:25 07/09/18 18:30 07/09/18 18:35 Temperature Pulse Rate 41 L 40 L 40 L Respiratory Rate 20 16 18 Blood Pressure 96/51 L 98/51 L 103/52 L Pulse Oximetry 97 97 96 07/09/18 18:40 07/09/18 18:45 07/09/18 18:51 Temperature Pulse Rate 40 L 41 L 45 L Respiratory Rate 15 21 21 Blood Pressure 104/54 L 103/54 L 99/56 L Pulse Oximetry 99 99 98 07/09/18 18:56 07/09/18 19:00 07/09/18 19:05 Temperature Pulse Rate 43 L 42 L 42 L Respiratory Rate 28 H 19 15 Blood Pressure 96/53 L 115/56 L 114/55 L Pulse Oximetry 98 98 99 07/09/18 19:44 07/09/18 20:00 07/09/18 21:36 Temperature 97.5 F L Pulse Rate 43 L 41 L Respiratory Rate 19 Blood Pressure 112/56 L Pulse Oximetry 96 97 99 07/09/18 21:40 07/09/18 21:45 07/09/18 21:50 Temperature Pulse Rate 40 L 40 L 42 L Respiratory Rate 18 19 19 Blood Pressure 107/53 L 103/53 L 108/56 L Pulse Oximetry 99 99 99 07/09/18 21:55 07/09/18 22:00 07/09/18 22:05 Temperature Pulse Rate 46 L 50 L 117 H Respiratory Rate 24 21 29 H Blood Pressure 115/54 L 118/57 L 122/68 Pulse Oximetry 98 97 97 07/09/18 22:10 07/09/18 22:15 07/09/18 22:20 Temperature Pulse Rate 44 L 46 L 42 L Respiratory Rate 21 25 H 19 Blood Pressure 114/55 L 104/53 L 103/50 L Pulse Oximetry 98 97 97 07/09/18 22:25 07/09/18 22:30 07/09/18 22:35 Temperature Pulse Rate 41 L 41 L 41 L Respiratory Rate 19 18 21 Blood Pressure 103/53 L 110/53 L 108/53 L Pulse Oximetry 98 97 97 07/09/18 22:40 07/09/18 22:45 07/09/18 22:51 Temperature Pulse Rate 42 L 42 L 41 L Respiratory Rate 17 19 18 Blood Pressure 110/54 L 102/51 L 113/56 L Pulse Oximetry 97 98 98 07/09/18 22:55 07/09/18 23:00 07/09/18 23:05 Temperature Pulse Rate 41 L 44 L 48 L Respiratory Rate 17 20 23 Blood Pressure 121/54 L 116/58 L 101/54 L Pulse Oximetry 98 98 98 07/09/18 23:10 07/09/18 23:15 07/09/18 23:20 Temperature Pulse Rate 42 L 42 L 42 L Respiratory Rate 19 21 22 Blood Pressure 115/53 L 108/54 L 113/56 L Pulse Oximetry 97 97 97 07/09/18 23:25 07/09/18 23:30 07/09/18 23:35 Temperature Pulse Rate 42 L 43 L 43 L Respiratory Rate 19 21 19 Blood Pressure 120/56 L 119/57 L 120/58 L Pulse Oximetry 99 98 98 07/09/18 23:40 07/09/18 23:45 07/09/18 23:50 Temperature Pulse Rate 43 L 43 L 43 L Respiratory Rate 18 18 22 Blood Pressure 114/56 L 113/55 L 115/56 L Pulse Oximetry 98 98 98 07/09/18 23:58 07/10/18 00:00 07/10/18 00:01 Temperature 97.7 F Pulse Rate 50 L 100 H 111 H Respiratory Rate 22 30 H 40 H Blood Pressure 128/61 91/57 L Pulse Oximetry 97 88 L 96 07/10/18 00:06 07/10/18 00:10 07/10/18 01:00 Temperature Pulse Rate 44 L 43 L 39 L Respiratory Rate 20 28 H 18 Blood Pressure 119/56 L 107/55 L 87/49 L Pulse Oximetry 97 97 99 07/10/18 02:00 07/10/18 02:01 07/10/18 03:00 Temperature Pulse Rate 43 L 41 L 45 L Respiratory Rate 23 20 20 Blood Pressure 122/54 L 111/59 L Pulse Oximetry 94 L 93 L 94 L 07/10/18 04:00 07/10/18 04:04 07/10/18 05:00 Temperature 97.0 F L Pulse Rate 52 L 51 L 45 L Respiratory Rate 22 23 19 Blood Pressure 125/60 Pulse Oximetry 96 96 96 07/10/18 06:00 07/10/18 07:00 07/10/18 07:21 Temperature Pulse Rate 49 L 47 L 54 L Respiratory Rate 18 17 25 H Blood Pressure 113/55 L Pulse Oximetry 98 95 91 L 07/10/18 07:32 07/10/18 08:00 07/10/18 09:00 Temperature 97.6 F Pulse Rate 42 L 55 L Respiratory Rate 19 27 H Blood Pressure 117/58 L 130/63 Pulse Oximetry 94 L 95 94 L 07/10/18 10:00 07/10/18 11:00 07/10/18 12:00 Temperature 96.4 F L Pulse Rate 48 L 51 L 47 L Respiratory Rate 27 H 35 H 19 Blood Pressure 127/59 L 139/63 118/56 L Pulse Oximetry 94 L 92 L 94 L 07/10/18 13:00 07/10/18 14:00 07/10/18 14:01 Temperature Pulse Rate 47 L 50 L 57 L Respiratory Rate 29 H 25 H 49 H Blood Pressure 132/61 131/57 L Pulse Oximetry 92 L 92 L 93 L Intake & Output 07/09/18 07/10/18 07/10/18 18:59 06:59 18:59 Intake Total 1030 / 1030 660 / 660 100 / 100 Output Total 700 / 700 Balance 330 / 330 660 / 660 100 / 100 Weight 72.4 kg Intake: IV 550 / 550 300 / 300 100 / 100 Buminate 5% Inj 250 ML @ 250 250 / 250 mls/hr IV.SIG ONCE ONE Rx#: [id number] Maxipime Inj 2,000 MG In NS Inj 100 / 100 200 / 200 100 ML @ 200 mls/hr IV.SIG Q8H [facility] Rx#:[id number] NS Inj 1,000 ML @ 1000 mls/hr 0 / 0 IV.SIG BOLUS [facility] Rx#:[id number] Flagyl 500 MG Inj 100 ML @ 100 200 / 200 100 / 100 100 / 100 mls/hr IV.SIG Q8H [facility] Rx#: [id number] Oral 480 / 480 360 / 360 Output: Urine 700 / 700 Other: # Voids 2 # Incontinent Voids 1 Date of Last Bowel Movement 07/09/18 07/09/18 07/10/18 # Bowel Movements 3 2 Narrative: GENERAL: Elderly appearing female, lying in bed in no obvious distress. Appears emotionally related and labile. SKIN: Warm and dry. Multiple ecchymoses over bilateral shins and arms. HEAD: Normocephalic. Small contusion on right parietal scalp without laceration , bleeding, or swelling CARDIOVASCULAR: Bradycardic at 50 bpm, regular rhythm without murmurs, gallops, or rubs. RESPIRATORY: Breath sounds equal bilaterally. No accessory muscle use. GASTROINTESTINAL: Abdomen soft and nontender in any quadrant. Normal bowel sounds appreciated. Nondistended. MUSCULOSKELETAL: No cyanosis, or edema. Moves all extremities spontaneously. Results 07/10/18 04:05 07/10/18 04:05 Cardiac Enzymes 07/08/18 07/08/18 Range/Units 20:05 20:05 AST 31 (15-37) U/L Troponin I Less than 0.02 L (0.02-0.05) ng/mL Coagulation 07/08/18 Range/Units 20:05 PT 11.6 (9.8-11.6) sec APTT 27.7 (23.4-31.7) sec CBC 07/08/18 07/09/18 07/09/18 Range/Units 20:05 01:25 02:44 WBC 9.4 19.3 H D 24.9 H (4.0-11.0) th/mm3 RBC 4.83 4.39 4.83 (4.00-5.30) mil/mm3 Hgb 15.6 H 14.1 15.7 H (11.6-15.3) gm/dL Hct 44.1 40.7 45.0 (35.0-46.0) % Plt Count 316 265 286 (150-450) th/mm3 Neut # (Auto) 6.1 23.3 H (1.8-7.7) th/mm3 Lymph # (Auto) 2.6 0.6 L (1.0-4.8) th/mm3 [place] # (Auto) 0.6 1.0 H (0.0-0.9) th/mm3 Eos # (Auto) 0.1 0.0 (0.0-0.4) th/mm3 Baso # (Auto) 0.0 0.0 (0.0-0.2) th/mm3 07/10/18 Range/Units 04:05 WBC 17.4 H (4.0-11.0) th/mm3 RBC 3.64 L (4.00-5.30) mil/mm3 Hgb 11.8 D (11.6-15.3) gm/dL Hct 33.7 L (35.0-46.0) % Plt Count 214 (150-450) th/mm3 Neut # (Auto) 15.3 H (1.8-7.7) th/mm3 Lymph # (Auto) 1.1 (1.0-4.8) th/mm3 [place] # (Auto) 1.0 H (0.0-0.9) th/mm3 Eos # (Auto) 0.0 (0.0-0.4) th/mm3 Baso # (Auto) 0.0 (0.0-0.2) th/mm3 Comprehensive Metabolic Panel 07/08/18 07/09/18 07/09/18 Range/Units 20:05 02:44 02:44 Sodium 129 L 133 L 135 L (136-145) meq/L Potassium 3.4 L 3.5 3.5 (3.5-5.1) meq/L Chloride 99 104 108 H (98-107) meq/L Carbon Dioxide 19.3 L 18.9 L 13.8 L (21.0-32.0) meq/L BUN 34 H 32 H 31 H (7-18) mg/dL Creatinine 1.51 H 1.34 H 1.18 H (0.50-1.00) mg/dL Calcium 8.0 L 7.2 L* D 6.4 L* D (8.5-10.1) mg/dL AST 31 (15-37) U/L ALT 36 (10-53) U/L Alkaline Phosphatase 82 (45-117) U/L Total Protein 5.6 L D (6.4-8.2) g/dL Albumin 2.9 L 2.8 L 2.2 L D (3.4-5.0) g/dL 07/10/18 Range/Units 04:05 Sodium 137 (136-145) meq/L Potassium 3.4 L (3.5-5.1) meq/L Chloride 106 (98-107) meq/L Carbon Dioxide 16.6 L (21.0-32.0) meq/L BUN 35 H (7-18) mg/dL Creatinine 1.52 H (0.50-1.00) mg/dL Calcium 7.8 L D (8.5-10.1) mg/dL AST (15-37) U/L ALT (10-53) U/L Alkaline Phosphatase (45-117) U/L Total Protein (6.4-8.2) g/dL Albumin (3.4-5.0) g/dL Intake and Output 07/09/18 07/10/18 07/10/18 22:59 06:59 14:59 Intake Total 930 / 930 560 / 560 100 / 100 Output Total 700 / 700 Balance 230 / 230 560 / 560 100 / 100 Intake: IV 450 / 450 200 / 200 100 / 100 Buminate 5% Inj 250 ML @ 250 250 / 250 mls/hr IV.SIG ONCE ONE Rx#: [id number] Maxipime Inj 2,000 MG In NS Inj 100 / 100 100 / 100 100 ML @ 200 mls/hr IV.SIG Q8H [facility] Rx#:[id number] Flagyl 500 MG Inj 100 ML @ 100 100 / 100 100 / 100 100 / 100 mls/hr IV.SIG Q8H [facility] Rx#: [id number] Oral 480 / 480 360 / 360 Output: Urine 700 / 700 Other: # Voids 2 # Incontinent Voids 1 Date of Last Bowel Movement 07/09/18 07/09/18 07/10/18 # Bowel Movements 3 2 Weight 72.4 kg - Imaging and Cardiology Imaging: Impressions Thoracic Aorta CT 07/08/18 20:02 CONCLUSION: 1. No evidence for aortic aneurysm or dissection as questioned. 2. Diffuse colonic wall thickening most notably in the transverse colon. Findings are most concerning for colitis, likely infectious or inflammatory in etiology. The mesenteric arteries are patent which make ischemic etiology unlikely. 3. Moderate severe sigmoid diverticulosis. 4. Coronary artery calcifications. 5. Additional ancillary findings, as above. Head CT 07/08/18 20:05 CONCLUSION: 1. No acute intracranial abnormality. 2. Atrophy and chronic white matter changes. . Abdomen/Pelvis CT 07/09/18 00:44 CONCLUSION: 1. Unremarkable study without evidence of bowel obstruction or free fluid or free air of any significance. Gallbladder is well distended. Kidneys are functioning. Degenerative arthritis lower lumbar spine. Bibasilar consolidation likely atelectasis 2. Sigmoid diverticulosis Assessment and Plan - Assessment (1) Bradycardia Code(s): R00.1 - Bradycardia, unspecified Status: Acute (2) Colitis Code(s): K52.9 - Noninfective gastroenteritis and colitis, unspecified Status : Acute (3) Afib Code(s): I48.91 - Unspecified atrial fibrillation Status: Acute (4) Hypertension Code(s): I10 - Essential (primary) hypertension Status: Acute (5) Hypothyroid Code(s): E03.9 - Hypothyroidism, unspecified Status: Acute (6) Anxiety Code(s): F41.9 - Anxiety disorder, unspecified Status: Acute (7) SKY (acute kidney injury) Code(s): N17.9 - Acute kidney failure, unspecified Status: Acute (8) Hypotension Code(s): I95.9 - Hypotension, unspecified Status: Acute (9) Sepsis associated hypotension Code(s): A41.9 - Sepsis, unspecified organism; I95.9 - Hypotension, unspecified Status: Acute - Plan 1. Abdominal pain, which appears to be due to colitis. Clinically better 2. Sepsis. Resolved, most likely secondary to colitis 3. Hypotension responsive to IV fluids. Resolved 4. Acute bradycardia secondary to medications. Amiodarone stopped Con't Flecainide Metoprolol held Con't to follow rates for now 5. Difficult to control atrial fibrillation with history of atrial fibrillation ablation x2 and atrial flutter ablation x1. Con't Flecainide for now, want to avoid Afib with RVR as possible Eliquis Drop in Hgb appears dilutional Hemoccult positive, will reevaluate Hgb levels tomorrow 6. Previous hypothermia. 7. Acute kidney injury. 8. Echo pending
--- NOTE | 2018-07-10 16:25 | MB ---
cc: Sonny Ariza MD,Roscoe Bustamante MD DATE: 07/10/2018 REQUESTING PHYSICIAN: Roscoe Morales MD REASON FOR CONSULTATION: A patient with a history of paroxysmal atrial fibrillation. Discharged on 07/07/2018 on flecainide. Readmitted due to hypotension and altered mental status. The patient is being empirically treated for colitis based on imaging. Requesting further recommendations on antibiotic treatment. HISTORY OF PRESENT ILLNESS: This is an 83-year-old white female who recently underwent an ablation procedure and was discharged home on flecainide. The patient was brought to the emergency department on 07/08/2018 after she fell and hit her head and also was noted to have severe abdominal pain. The patient was using medications for bowel movements including 2 rectal suppositories. She was noted to have constipation. She reports that she had a bowel movement after taking the suppositories and after that, she had been having some watery stools. Her temperature in the emergency department was normal, and at one point, her blood pressure was low with a BP of 70/45. A CTA was ordered to rule out aortic dissection. She also had a CT of the abdomen and pelvis. The CT of the abdomen was reported unremarkable without evidence of bowel obstruction, free fluid or free air. She was noted to have sigmoid diverticulosis. The reading of the thoracic CT reports diffuse colonic wall thickening, most notably in the transverse colon. Findings are most concerning for colitis, likely infectious or inflammatory in etiology. Moderate to severe sigmoid diverticulosis also was noted on that reading. The patient was started on IV Flagyl. Her white blood cell count initially was 9.4 on the evening of 07/08/2018 and then it jose m to 24.9 the following day. The patient has remained afebrile. Stool C. difficile toxin is negative. Blood cultures have no growth. The patient tells me that she is passing gas, but she no longer has diarrhea. She states that her abdomen is not painful, but mildly sore. The patient notes that she was having nausea and vomiting before she was admitted. PAST MEDICAL HISTORY: Atrial fibrillation, hypertension, hypothyroidism, history of hysterectomy, history of hip replacement, radiofrequency ablation. ALLERGIES: CIPROFLOXACIN, SULFA, CEFACLOR, PAROXETINE, CLONIDINE. MEDICATIONS: 1. Cefepime. 2. Eliquis. 3. Tambocor. 4. Dilaudid. 5. Synthroid. 6. Metronidazole. 7. Zofran. 8. Potassium. SOCIAL HISTORY: No tobacco, no alcohol, no illicit drugs. FAMILY HISTORY: Noncontributory. REVIEW OF SYSTEMS: All systems have been reviewed and pertinents are mentioned in the history of present illness. In addition, the patient also notes easy bruising and bleeding. PHYSICAL EXAMINATION: GENERAL: This is a well-developed female in no acute distress. She is awake and alert. VITAL SIGNS: Temperature 97.6, BP 118/56, respirations 20, heart rate 58. HEENT: Head atraumatic. Extraocular movements are grossly intact. Pupils reactive to light. No icterus. No conjunctival erythema. Oropharynx, mucosa is moist. NECK: Supple without adenopathy. No swelling. LUNGS: Clear breath sounds which are diminished. CARDIOVASCULAR: Regular S1 and S2. ABDOMEN: Soft, protuberant. Decreased bowel sounds. No significant tenderness on palpation. No rebound tenderness. RECTAL: Not performed. EXTREMITIES: No clubbing, cyanosis or edema. Diffuse ecchymosis of both lower extremities and also of the upper extremities. SKIN: No diffuse rash. NEUROLOGIC: No gross focal finding. PSYCHIATRIC: The patient is calm and cooperative. LABORATORY DATA: WBC 17.4, platelet count 214, hemoglobin 11.8. Creatinine 1.52, estimated GFR 33, sodium 137. Liver function tests normal. IMPRESSION: Abdominal pain and abnormal transverse colon findings suggesting colitis. The patient has a negative Clostridium difficile toxin. Her abdominal pain is almost completely resolved, but she has problems with constipation. It is unclear that this patient has infectious colitis and I think it probably is inflammatory in nature. Because her white blood cell count is elevated, I would continue the Flagyl and I recommend that she be evaluated by gastroenterology to further elucidate the cause of the changes in the transverse colon, which may have to be investigated by a colonoscopy. I would discontinue the cefepime and monitor the white blood cell count on Flagyl. If she continues to have watery or loose stools, we should also send a sample for ova and parasites. Thank you for this consultation. MD KELIN Ivey/cherri , 12:51 PM , 01:22 PM
--- NOTE | 2018-07-11 00:35 | ECG ---
Date Performed: 07/08/2018 Time Performed: 19:55:08 PTAGE: 83 years EKG: Sinus rhythm INDETERMINATE AXIS POSSIBLE RIGHT VENTRICULAR CONDUCTION DELAY SEPTAL MYOCARDIAL INFARCTION ABNORMAL ECG INTERPRETATION BASED ON A DEFAULT AGE OF 40 YEARS Compared to PREVIOUS TRACING , [place] no longer noted DOCTOR: Cameron Frank Interpretating Date/Time 07/11/2018 00:34:46
[2018-07-11] MEDS: Chlorhexidine Gluconate 2% 1 Pack (2 Cloths) TOPICAL SCH (03:08)
[2018-07-11] MEDS: Levothyroxine 50 MCG Tablet PO SCH (06:02)
[2018-07-11 06:32] LABS: Baso % (Auto) 0.3 % (0.0-2.0); Eos # (Auto) 0.1 th/mm3 (0.0-0.4); Eos % (Auto) 0.8 % (0.0-4.0); Hematocrit 32.1 % (35.0-46.0); Hemoglobin 11.4 gm/dL (11.6-15.3); Lymph # (Auto) 1.2 th/mm3 (1.0-4.8); Lymph % (Auto) 8.3 % (9.0-44.0); Mean Corpuscular HGB Conc 35.6 % (32.0-36.0); Mean Corpuscular Hemoglobin 32.8 pg (27.0-34.0); Mean Corpuscular Volume 92.2 fL (80.0-100.0); Mono # (Auto) 0.8 th/mm3 (0.0-0.9); Mono % (Auto) 5.5 % (0.0-8.0); Neut # (Auto) 12.5 th/mm3 (1.8-7.7); Neut % (Auto) 85.1 % (16.0-70.0); Platelet Count 220 th/mm3 (150-450); Red Blood Count 3.48 mil/mm3 (4.00-5.30); Red Cell Distribution Width 14.5 % (11.6-17.2); White Blood Count 14.7 th/mm3 (4.0-11.0)
[2018-07-11 07:08] LABS: Calcium 8.2 mg/dL (8.5-10.1); Carbon Dioxide 16.6 meq/L (21.0-32.0); Phosphorus 1.2 mg/dL (2.5-4.9)
[2018-07-11 07:14] LABS: Potassium 2.9 meq/L (3.5-5.1)
[2018-07-11] MEDS ORDERED: Potassium Chlor 20 mEq Premix 20 MEQ/100 ML PIGGYBACK IV.SIG ONE (08:00)
[2018-07-11] MEDS: Flecainide 100 MG Tablet PO SCH ×2 (08:04→21:39)
--- NOTE | 2018-07-11 08:56 | P.CONGI ---
History of Present Illness Consult date: 07/11/18 Chief complaint: colitis, bradycardia History of Present Illness: This is an 83-year-old female PMHx Afib s/p ablation, HTN and hypothyroidism who presents the emergency room with EMS after she had a syncopal episode. Patient reports that she was recently discharged from the hospital a few days ago after she is being treated for A. fib with RVR. Patient has been having trouble moving her bowels, reports that she gave herself 2 rectal suppositories and took a lot of laxatives in order to move her bowels. Shortly after, patient had a syncopal episode before she can make it to the bathroom. States stools were all liquid at that time. Patient is on Eliquis 5 mg twice daily. Patient denies abdominal pain, she has some cramps associated with having to use the bathroom. Has had mild nausea and vomiting for a couple of days which she attributes to being on clear liquid diet. Was found to have heme (+) stools. hgb is dropping. No obvious bleeding reported. WBC elevated but trending down. CT done with no evidence of colitis or acute findings. Stools negative for C-diff. Colonoscopy was done 4 yrs ago by report <Batsheva Connelly - Last Filed: 07/11/18 10:43> Review of Systems All other systems reviewed negative except as stated in HPI <Batsheva Connelly - Last Filed: 07/11/18 10:43> PMFSH - History History Provided By: Patient, Medical Record - Medical History Medical History: Medical History (Last Reviewed 07/09/18 @ 11:44 by Tessa Thacker PT) Afib HTN (hypertension) History of hysterectomy Hypothyroid - Surgical History Surgical History: Surgical History (Last Reviewed 07/09/18 @ 11:44 by Tessa Thacker PT) History of hip replacement History of radiofrequency ablation procedure for cardiac arrhythmia - Family History Family History: Family History (Last Reviewed 07/09/18 @ 11:44 by Tessa Thacker PT) Other CAD (coronary artery disease) Diabetes - Tobacco History Second Hand Smoke Exposure: No Smoking Status: Never smoker Tobacco Type: Cigarettes - Alcohol History How Often Do You Have a Drink Containing Alcohol: Never - Substance Use History Substance History: No History of Abuse - Travel History Recent Travel in the [facility] Within the Last 8 Weeks: No Recent Travel Out of the Country Within the Last 8 Weeks: No - Immunization History Tetanus Immunization: Unable to Assess <Batsheva Connelly - Last Filed: 07/11/18 10:43> - Medical History Medical History: Medical History (Last Reviewed 07/09/18 @ 11:44 by Tessa Thacker, PT) Afib HTN (hypertension) History of hysterectomy Hypothyroid - Surgical History Surgical History: Surgical History (Last Reviewed 07/09/18 @ 11:44 by Tessa Thacker, PT) History of hip replacement History of radiofrequency ablation procedure for cardiac arrhythmia - Family History Family History: Family History (Last Reviewed 07/09/18 @ 11:44 by Tessa Thacker, PT) Other CAD (coronary artery disease) Diabetes <Jaquan Bashir - Last Filed: 07/11/18 12:20> Medications and Allergies Active Medications: Active Medications Acetaminophen (Tylenol) 650 mg PO Q4H PRN PRN Reason: Temp > 100.4 Apixaban (Eliquis) 5 mg PO BID [facility] Last Admin: 07/11/18 08:04 Dose: 5 mg Chlorhexidine Gluconate (Chlorhexidine 2% Cloth) 3 pack TOPICAL DAILY@0400 [facility] Stop: 07/14/18 03:59 Last Admin: 07/11/18 03:08 Dose: 3 pack Chlorhexidine Gluconate (Chlorhexidine 2% Cloth) 3 pack TOPICAL DAILY@0400 PRN PRN Reason: Extra cloth needed Stop: 07/14/18 03:59 Estradiol (Climara 0.05 Mg Patch.7d) 1 patch T-DERMAL ONCE ONE Stop: 07/12/18 17:43 Flecainide Acetate (Tambocor) 100 mg PO BID [facility] Last Admin: 07/11/18 08:04 Dose: 100 mg Hydromorphone HCl (Dilaudid Pf Inj) 0.5 mg IV.PUSH ONCE PRN PRN Reason: ABDOMINAL PAIN Last Admin: 07/09/18 00:54 Dose: 0.5 mg Metronidazole/Sodium Chloride (Flagyl 500 Mg Inj) 100 mls @ 100 mls/hr IV.SIG Q8H [facility] Last Admin: 07/11/18 08:04 Dose: 100 mls/hr Potassium Chloride (Kcl 20 Meq Premix Inj) 20 meq in 100 mls @ 50 mls/hr IV.SIG NOW ONE Stop: 07/11/18 09:59 Last Admin: 07/11/18 08:11 Dose: 50 mls/hr Levothyroxine Sodium (Synthroid) 50 mcg PO DAILY@0600 [facility] Last Admin: 07/11/18 06:02 Dose: 50 mcg Ondansetron HCl (Zofran Inj) 4 mg IV.PUSH Q6H PRN PRN Reason: NAUSEA OR VOMITING Last Admin: 07/10/18 14:06 Dose: 4 mg Patch Removal (Remove Old Patch) 1 each T-DERMAL Q7D [facility] Potassium Chloride (K-Dur) 20 meq PO DAILY [facility] Last Admin: 07/11/18 08:04 Dose: 20 meq Sodium Chloride (Ns Flush) 2 ml IV.FLUSH BID [facility] Last Admin: 07/11/18 08:11 Dose: 2 ml Sodium Chloride (Ns Flush) 2 ml IV.FLUSH PRN PRN PRN Reason: FLUSH AFTER USING IV ACCESS <Batsheva Connelly - Last Filed: 07/11/18 10:43> Active Medications: Active Medications Acetaminophen (Tylenol) 650 mg PO Q4H PRN PRN Reason: Temp > 100.4 Apixaban (Eliquis) 5 mg PO BID [facility] Last Admin: 07/11/18 08:04 Dose: 5 mg Chlorhexidine Gluconate (Chlorhexidine 2% Cloth) 3 pack TOPICAL DAILY@0400 [facility] Stop: 07/14/18 03:59 Last Admin: 07/11/18 03:08 Dose: 3 pack Chlorhexidine Gluconate (Chlorhexidine 2% Cloth) 3 pack TOPICAL DAILY@0400 PRN PRN Reason: Extra cloth needed Stop: 07/14/18 03:59 Estradiol (Climara 0.05 Mg Patch.7d) 1 patch T-DERMAL ONCE ONE Stop: 07/12/18 17:43 Flecainide Acetate (Tambocor) 100 mg PO BID [facility] Last Admin: 07/11/18 08:04 Dose: 100 mg Hydromorphone HCl (Dilaudid Pf Inj) 0.5 mg IV.PUSH ONCE PRN PRN Reason: ABDOMINAL PAIN Last Admin: 07/09/18 00:54 Dose: 0.5 mg Metronidazole/Sodium Chloride (Flagyl 500 Mg Inj) 100 mls @ 100 mls/hr IV.SIG Q8H [facility] Last Infusion: 07/11/18 10:25 Dose: Infused Levothyroxine Sodium (Synthroid) 50 mcg PO DAILY@0600 [facility] Last Admin: 07/11/18 06:02 Dose: 50 mcg Ondansetron HCl (Zofran Inj) 4 mg IV.PUSH Q6H PRN PRN Reason: NAUSEA OR VOMITING Last Admin: 07/10/18 14:06 Dose: 4 mg Patch Removal (Remove Old Patch) 1 each T-DERMAL Q7D [facility] Polyethylene Glycol/Electrolytes (Colyte Liq) 4,000 ml PO ONCE ONE Stop: 07/12/18 16:01 Potassium Chloride (K-Dur) 20 meq PO DAILY [facility] Last Admin: 07/11/18 08:04 Dose: 20 meq Sodium Chloride (Ns Flush) 2 ml IV.FLUSH BID [facility] Last Admin: 07/11/18 08:11 Dose: 2 ml Sodium Chloride (Ns Flush) 2 ml IV.FLUSH PRN PRN PRN Reason: FLUSH AFTER USING IV ACCESS <Jaquan Bashir - Last Filed: 07/11/18 12:20> Allergies Allergy/AdvReac Type Severity Reaction Status Date / Time cefaclor Allergy Severe RASH Verified 07/04/18 09:33 paroxetine Allergy Severe Rash Verified 07/04/18 09:33 Sulfa (Sulfonamide Allergy Severe RASH Verified 07/04/18 09:33 Antibiotics) ciprofloxacin Allergy Unknown GI UPSET Verified 07/04/18 09:33 clonidine Allergy Unknown SKIN Verified 07/04/18 09:33 IRRITATION latex bandages AdvReac Mild SKIN Uncoded 07/02/18 10:47 REDNESS, RASH Home Medications Medication Instructions Recorded Confirmed Type alprazolam 0.25 mg PO BID PRN 05/18/18 07/08/18 History amiodarone 200 mg PO DAILY 05/18/18 07/08/18 History apixaban [Eliquis] 5 mg PO BID 05/18/18 07/08/18 History estradiol 0.5 mg PO WEEKLY 05/18/18 07/08/18 History levothyroxine 50 mcg PO DAILY 05/18/18 07/08/18 History potassium chloride 20 meq PO DAILY 05/18/18 07/08/18 History Exam Vital signs: Vital Signs 07/10/18 09:00 07/10/18 10:00 07/10/18 11:00 Temperature Pulse Rate 55 L 48 L 51 L Respiratory Rate 27 H 27 H 35 H Blood Pressure 130/63 127/59 L 139/63 Pulse Oximetry 94 L 94 L 92 L 07/10/18 12:00 07/10/18 13:00 07/10/18 14:00 Temperature 96.4 F L Pulse Rate 47 L 47 L 50 L Respiratory Rate 19 29 H 25 H Blood Pressure 118/56 L 132/61 Pulse Oximetry 94 L 92 L 92 L 07/10/18 14:01 07/10/18 15:00 07/10/18 15:01 Temperature Pulse Rate 57 L 48 L 49 L Respiratory Rate 49 H 12 14 Blood Pressure 131/57 L 103/52 L Pulse Oximetry 93 L 93 L 93 L 07/10/18 16:00 07/10/18 16:01 07/10/18 17:00 Temperature 97.6 F Pulse Rate 51 L 53 L 88 Respiratory Rate 19 19 29 H Blood Pressure 113/51 L 113/51 L Pulse Oximetry 94 L 93 L 94 L 07/10/18 17:01 07/10/18 18:00 07/10/18 19:00 Temperature Pulse Rate 66 48 L 56 L Respiratory Rate 26 H 21 24 Blood Pressure 141/66 H 135/63 148/66 H Pulse Oximetry 92 L 96 97 07/10/18 19:30 07/10/18 20:00 07/10/18 21:00 Temperature 97.6 F Pulse Rate 56 L 58 L Respiratory Rate 19 19 Blood Pressure 142/64 H 139/65 Pulse Oximetry 94 L 95 95 07/10/18 22:00 07/10/18 23:00 07/11/18 00:00 Temperature 98 F Pulse Rate 51 L 60 60 Respiratory Rate 24 17 18 Blood Pressure 139/64 140/64 127/61 Pulse Oximetry 94 L 95 96 07/11/18 01:00 07/11/18 02:00 07/11/18 03:00 Temperature Pulse Rate 63 61 60 Respiratory Rate 24 17 19 Blood Pressure 148/65 H 122/99 H 144/65 H Pulse Oximetry 91 L 93 L 96 07/11/18 04:00 07/11/18 06:00 07/11/18 08:20 Temperature 98.2 F Pulse Rate 63 64 Respiratory Rate 17 Blood Pressure 135/64 Pulse Oximetry 91 L 93 L Intake & Output 12/07/11/18 07/11/18 18:59 06:59 18:59 Intake Total 1020 / 1020 340 / 340 Output Total 700 / 700 400 / 400 Balance 320 / 320 -60 / -60 Weight 73 kg Intake: IV 300 / 300 100 / 100 Maxipime Inj 2,000 MG In NS Inj 100 / 100 100 ML @ 200 mls/hr IV.SIG Q8H ERIK Rx#:[id number] Flagyl 500 MG Inj 100 ML @ 100 200 / 200 100 / 100 mls/hr IV.SIG Q8H ERIK Rx#: [id number] Oral 720 / 720 240 / 240 Output: Urine 700 / 700 400 / 400 Other: Date of Last Bowel Movement 07/10/18 07/10/18 # Bowel Movements 4 0 - Constitutional no acute distress - Routine HEENT Exam Head: Present: normocephalic - Routine Respiratory Exam Present: CTA bilaterally - Routine Cardiovascular Exam Present: RRR - Routine Abdominal Exam Present: soft, normoactive bowel sounds, tenderness (to palpation ) - Routine Skin Exam Present: intact, dry. Absent: jaundice - Routine Neurological Exam Present: alert, oriented X3 <Amjose,Batsheva - Last Filed: 07/11/18 10:43> Vital signs: Vital Signs 07/10/18 13:00 07/10/18 14:00 07/10/18 14:01 Temperature Pulse Rate 47 L 50 L 57 L Respiratory Rate 29 H 25 H 49 H Blood Pressure 132/61 131/57 L Pulse Oximetry 92 L 92 L 93 L 07/10/18 15:00 07/10/18 15:01 07/10/18 16:00 Temperature 97.6 F Pulse Rate 48 L 49 L 51 L Respiratory Rate 12 14 19 Blood Pressure 103/52 L 113/51 L Pulse Oximetry 93 L 93 L 94 L 07/10/18 16:01 07/10/18 17:00 07/10/18 17:01 Temperature Pulse Rate 53 L 88 66 Respiratory Rate 19 29 H 26 H Blood Pressure 113/51 L 141/66 H Pulse Oximetry 93 L 94 L 92 L 07/10/18 18:00 07/10/18 19:00 07/10/18 19:30 Temperature Pulse Rate 48 L 56 L Respiratory Rate 21 24 Blood Pressure 135/63 148/66 H Pulse Oximetry 96 97 94 L 07/10/18 20:00 07/10/18 21:00 07/10/18 22:00 Temperature 97.6 F Pulse Rate 56 L 58 L 51 L Respiratory Rate 19 19 24 Blood Pressure 142/64 H 139/65 139/64 Pulse Oximetry 95 95 94 L 07/10/18 23:00 07/11/18 00:00 07/11/18 01:00 Temperature 98 F Pulse Rate 60 60 63 Respiratory Rate 17 18 24 Blood Pressure 140/64 127/61 148/65 H Pulse Oximetry 95 96 91 L 07/11/18 02:00 07/11/18 03:00 07/11/18 04:00 Temperature 98.2 F Pulse Rate 61 60 63 Respiratory Rate 17 19 17 Blood Pressure 122/99 H 144/65 H 135/64 Pulse Oximetry 93 L 96 91 L 07/11/18 05:00 07/11/18 06:00 07/11/18 07:00 Temperature Pulse Rate 62 66 64 Respiratory Rate 18 19 17 Blood Pressure 127/60 132/63 141/62 H Pulse Oximetry 92 L 93 L 93 L 07/11/18 08:00 07/11/18 08:20 07/11/18 09:00 Temperature 98.7 F Pulse Rate 69 126 H Respiratory Rate 24 17 Blood Pressure 134/86 147/67 H Pulse Oximetry 93 L 93 L 97 07/11/18 10:00 Temperature Pulse Rate 69 Respiratory Rate 27 H Blood Pressure 144/68 H Pulse Oximetry 96 Intake & Output 07/10/18 07/11/18 07/11/18 18:59 06:59 18:59 Intake Total 1020 / 1020 340 / 340 200 / 200 Output Total 700 / 700 400 / 400 Balance 320 / 320 -60 / -60 200 / 200 Weight 73 kg Intake: IV 300 / 300 100 / 100 200 / 200 Maxipime Inj 2,000 MG In NS Inj 100 / 100 100 ML @ 200 mls/hr IV.SIG Q8H ERIK Rx#:[id number] KCl 20 mEq Premix Inj 20 meq In 100 / 100 100 ml @ 50 mls/hr IV.SIG NOW ONE Rx#:[id number] Flagyl 500 MG Inj 100 ML @ 100 200 / 200 100 / 100 100 / 100 mls/hr IV.SIG Q8H ERIK Rx#: [id number] Oral 720 / 720 240 / 240 Output: Urine 700 / 700 400 / 400 Other: Date of Last Bowel Movement 07/10/18 07/10/18 # Bowel Movements 4 0 <Jaquan Bashir - Last Filed: 07/11/18 12:20> Results - Labs CBC & Chem 7: 07/11/18 05:37 07/11/18 05:37 Labs: Laboratory Results - last 24 hr 07/10/18 07/11/18 07/11/18 11:38 05:37 05:37 WBC 14.7 H RBC 3.48 L Hgb 11.4 L Hct 32.1 L MCV 92.2 MCH 32.8 MCHC 35.6 RDW 14.5 Plt Count 220 MPV 8.0 Neut % (Auto) 85.1 H Lymph % (Auto) 8.3 L Zapata % (Auto) 5.5 Eos % (Auto) 0.8 Baso % (Auto) 0.3 Neut # (Auto) 12.5 H Lymph # (Auto) 1.2 Zapata # (Auto) 0.8 Eos # (Auto) 0.1 Baso # (Auto) 0.0 WBC Differential . Differential Comment Auto diff final Sodium 138 Potassium 2.9 L* Chloride 107 Carbon Dioxide 16.6 L Anion Gap 14 BUN 23 H Creatinine 1.13 H Estimated GFR 46 L POC Glucose 135 H Random Glucose 100 Calcium 8.2 L Phosphorus 1.2 L D Magnesium 2.0 - Imaging Thoracic Aorta CT 07/08/18 20:02 CONCLUSION: 1. No evidence for aortic aneurysm or dissection as questioned. 2. Diffuse colonic wall thickening most notably in the transverse colon. Findings are most concerning for colitis, likely infectious or inflammatory in etiology. The mesenteric arteries are patent which make ischemic etiology unlikely. 3. Moderate severe sigmoid diverticulosis. 4. Coronary artery calcifications. 5. Additional ancillary findings, as above. Head CT 07/08/18 20:05 CONCLUSION: 1. No acute intracranial abnormality. 2. Atrophy and chronic white matter changes. . Abdomen/Pelvis CT 07/09/18 00:44 CONCLUSION: 1. Unremarkable study without evidence of bowel obstruction or free fluid or free air of any significance. Gallbladder is well distended. Kidneys are functioning. Degenerative arthritis lower lumbar spine. Bibasilar consolidation likely atelectasis 2. Sigmoid diverticulosis <Batsheva Connelly - Last Filed: 07/11/18 10:43> - Labs CBC & Chem 7: 07/11/18 05:37 07/11/18 05:37 Labs: Laboratory Results - last 24 hr 07/11/18 07/11/18 05:37 05:37 WBC 14.7 H RBC 3.48 L Hgb 11.4 L Hct 32.1 L MCV 92.2 MCH 32.8 MCHC 35.6 RDW 14.5 Plt Count 220 MPV 8.0 Neut % (Auto) 85.1 H Lymph % (Auto) 8.3 L Zapata % (Auto) 5.5 Eos % (Auto) 0.8 Baso % (Auto) 0.3 Neut # (Auto) 12.5 H Lymph # (Auto) 1.2 Zapata # (Auto) 0.8 Eos # (Auto) 0.1 Baso # (Auto) 0.0 WBC Differential . Differential Comment Auto diff final Sodium 138 Potassium 2.9 L* Chloride 107 Carbon Dioxide 16.6 L Anion Gap 14 BUN 23 H Creatinine 1.13 H Estimated GFR 46 L Random Glucose 100 Calcium 8.2 L Phosphorus 1.2 L D Magnesium 2.0 <Jaquan Bashir - Last Filed: 07/11/18 12:20> Assessment and Plan - Plan - Sepsis/syncopal episode/ anemia/heme (+) stools- Patient has been having trouble moving her bowels, reports that she gave herself 2 rectal suppositories and took a lot of laxatives in order to move her bowels. Shortly after, patient had a syncopal episode before she can make it to the bathroom. States stools were all liquid at that time. Patient is on Eliquis 5 mg twice daily. Patient denies abdominal pain, she has some cramps associated with having to use the bathroom. Has had mild nausea and vomiting for a couple of days which she attributes to being on clear liquid diet. Was found to have heme (+) stools. hgb is dropping. No obvious bleeding reported. WBC elevated but trending down. Blood cx negative so far. LFTs and lipase wnl. CT done with no evidence of colitis or acute findings. Stools negative for C- diff. Colonoscopy was done 4 yrs ago by report - Anemia/heme (+) stools- no bleeding reported, pt is on Eliquis which could be the culprit - Sepsis- on Flagyl, WBC trending down. Blood cx negative so far. Ct no evidence of colitis Stools negative for C-diff - Hypokalemia- K 2.9, per CCM - PMHx Afib s/p ablation ( on eliquis) , HTN and hypothyroidism Plan: - Clear liquid diet - EGD/colonoscopy to r/o Gi related etiology for sepsis possibly on Wed. even though no signs of colitis at this time, but pt has heme (+) stools and hgb is dropping - Will need to hold Eliquis, this was discussed with Dr. Frank - ID and cardiology on the case - Cont. Flagyl - Cont. bowel regimen - Monitor hh - Supportive care - Pt is seen by Dr. Bashir and myself and this note is written on his behalf. <Batsheva Connelly - Last Filed: 07/11/18 10:43> - Attending Attestation I seen and examined the patient. The patient requires upper endoscopy and colonoscopy. This procedure will be scheduled on July 13. Patient will undergo bowel preparation July 12. I otherwise agree with the assessment and recommendations as noted above. <Jaquan Bashir - Last Filed: 07/11/18 12:20>
--- NOTE | 2018-07-11 11:39 | P.PNCA ---
Subjective Interval history: No events overnight Feels well Continues in sinus rhythm, rates 50-70, better than before Medications and Allergies Active Medications: Active Medications Acetaminophen (Tylenol) 650 mg PO Q4H PRN PRN Reason: Temp > 100.4 Apixaban (Eliquis) 5 mg PO BID [facility] Last Admin: 07/11/18 08:04 Dose: 5 mg Chlorhexidine Gluconate (Chlorhexidine 2% Cloth) 3 pack TOPICAL DAILY@0400 [facility] Stop: 07/14/18 03:59 Last Admin: 07/11/18 03:08 Dose: 3 pack Chlorhexidine Gluconate (Chlorhexidine 2% Cloth) 3 pack TOPICAL DAILY@0400 PRN PRN Reason: Extra cloth needed Stop: 07/14/18 03:59 Estradiol (Climara 0.05 Mg Patch.7d) 1 patch T-DERMAL ONCE ONE Stop: 07/12/18 17:43 Flecainide Acetate (Tambocor) 100 mg PO BID [facility] Last Admin: 07/11/18 08:04 Dose: 100 mg Hydromorphone HCl (Dilaudid Pf Inj) 0.5 mg IV.PUSH ONCE PRN PRN Reason: ABDOMINAL PAIN Last Admin: 07/09/18 00:54 Dose: 0.5 mg Metronidazole/Sodium Chloride (Flagyl 500 Mg Inj) 100 mls @ 100 mls/hr IV.SIG Q8H [facility] Last Infusion: 07/11/18 10:25 Dose: Infused Levothyroxine Sodium (Synthroid) 50 mcg PO DAILY@0600 [facility] Last Admin: 07/11/18 06:02 Dose: 50 mcg Ondansetron HCl (Zofran Inj) 4 mg IV.PUSH Q6H PRN PRN Reason: NAUSEA OR VOMITING Last Admin: 07/10/18 14:06 Dose: 4 mg Patch Removal (Remove Old Patch) 1 each T-DERMAL Q7D [facility] Polyethylene Glycol/Electrolytes (Colyte Liq) 4,000 ml PO ONCE ONE Stop: 07/12/18 16:01 Potassium Chloride (K-Dur) 20 meq PO DAILY [facility] Last Admin: 07/11/18 08:04 Dose: 20 meq Sodium Chloride (Ns Flush) 2 ml IV.FLUSH BID [facility] Last Admin: 07/11/18 08:11 Dose: 2 ml Sodium Chloride (Ns Flush) 2 ml IV.FLUSH PRN PRN PRN Reason: FLUSH AFTER USING IV ACCESS Allergies Allergy/AdvReac Type Severity Reaction Status Date / Time cefaclor Allergy Severe RASH Verified 07/04/18 09:33 paroxetine Allergy Severe Rash Verified 07/04/18 09:33 Sulfa (Sulfonamide Allergy Severe RASH Verified 07/04/18 09:33 Antibiotics) ciprofloxacin Allergy Unknown GI UPSET Verified 07/04/18 09:33 clonidine Allergy Unknown SKIN Verified 07/04/18 09:33 IRRITATION latex bandages AdvReac Mild SKIN Uncoded 07/02/18 10:47 REDNESS, RASH Home Medications Medication Instructions Recorded Confirmed Type alprazolam 0.25 mg PO BID PRN 05/18/18 07/08/18 History amiodarone 200 mg PO DAILY 05/18/18 07/08/18 History apixaban [Eliquis] 5 mg PO BID 05/18/18 07/08/18 History estradiol 0.5 mg PO WEEKLY 05/18/18 07/08/18 History levothyroxine 50 mcg PO DAILY 05/18/18 07/08/18 History potassium chloride 20 meq PO DAILY 05/18/18 07/08/18 History Physical Exam Vital signs: Vital Signs 07/10/18 12:00 07/10/18 13:00 07/10/18 14:00 Temperature 96.4 F L Pulse Rate 47 L 47 L 50 L Respiratory Rate 19 29 H 25 H Blood Pressure 118/56 L 132/61 Pulse Oximetry 94 L 92 L 92 L 07/10/18 14:01 07/10/18 15:00 07/10/18 15:01 Temperature Pulse Rate 57 L 48 L 49 L Respiratory Rate 49 H 12 14 Blood Pressure 131/57 L 103/52 L Pulse Oximetry 93 L 93 L 93 L 07/10/18 16:00 07/10/18 16:01 07/10/18 17:00 Temperature 97.6 F Pulse Rate 51 L 53 L 88 Respiratory Rate 19 19 29 H Blood Pressure 113/51 L 113/51 L Pulse Oximetry 94 L 93 L 94 L 07/10/18 17:01 07/10/18 18:00 07/10/18 19:00 Temperature Pulse Rate 66 48 L 56 L Respiratory Rate 26 H 21 24 Blood Pressure 141/66 H 135/63 148/66 H Pulse Oximetry 92 L 96 97 07/10/18 19:30 12/23/18 20:00 07/10/18 21:00 Temperature 97.6 F Pulse Rate 56 L 58 L Respiratory Rate 19 19 Blood Pressure 142/64 H 139/65 Pulse Oximetry 94 L 95 95 07/10/18 22:00 07/10/18 23:00 07/11/18 00:00 Temperature 98 F Pulse Rate 51 L 60 60 Respiratory Rate 24 17 18 Blood Pressure 139/64 140/64 127/61 Pulse Oximetry 94 L 95 96 07/11/18 01:00 07/11/18 02:00 07/11/18 03:00 Temperature Pulse Rate 63 61 60 Respiratory Rate 24 17 19 Blood Pressure 148/65 H 122/99 H 144/65 H Pulse Oximetry 91 L 93 L 96 07/11/18 04:00 07/11/18 05:00 07/11/18 06:00 Temperature 98.2 F Pulse Rate 63 62 66 Respiratory Rate 17 18 19 Blood Pressure 135/64 127/60 132/63 Pulse Oximetry 91 L 92 L 93 L 07/11/18 07:00 07/11/18 08:00 07/11/18 08:20 Temperature 98.7 F Pulse Rate 64 69 Respiratory Rate 17 24 Blood Pressure 141/62 H 134/86 Pulse Oximetry 93 L 93 L 93 L 07/11/18 09:00 07/11/18 10:00 Temperature Pulse Rate 126 H 69 Respiratory Rate 17 27 H Blood Pressure 147/67 H 144/68 H Pulse Oximetry 97 96 Intake & Output 07/10/18 07/11/18 07/11/18 18:59 06:59 18:59 Intake Total 1020 / 1020 340 / 340 200 / 200 Output Total 700 / 700 400 / 400 Balance 320 / 320 -60 / -60 200 / 200 Weight 73 kg Intake: IV 300 / 300 100 / 100 200 / 200 Maxipime Inj 2,000 MG In NS Inj 100 / 100 100 ML @ 200 mls/hr IV.SIG Q8H ERIK Rx#:[id number] KCl 20 mEq Premix Inj 20 meq In 100 / 100 100 ml @ 50 mls/hr IV.SIG NOW ONE Rx#:[id number] Flagyl 500 MG Inj 100 ML @ 100 200 / 200 100 / 100 100 / 100 mls/hr IV.SIG Q8H ERIK Rx#: [id number] Oral 720 / 720 240 / 240 Output: Urine 700 / 700 400 / 400 Other: Date of Last Bowel Movement 07/10/18 07/10/18 # Bowel Movements 4 0 Narrative: GENERAL: Elderly appearing female, lying in bed in no obvious distress. Appears emotionally related and labile. SKIN: Warm and dry. Multiple ecchymoses over bilateral shins and arms. HEAD: Normocephalic. Small contusion on right parietal scalp without laceration , bleeding, or swelling CARDIOVASCULAR: regular rhythm without murmurs, gallops, or rubs. RESPIRATORY: Breath sounds equal bilaterally. No accessory muscle use. GASTROINTESTINAL: Abdomen soft and nontender in any quadrant. Normal bowel sounds appreciated. Nondistended. MUSCULOSKELETAL: No cyanosis, or edema. Moves all extremities spontaneously. Results 07/11/18 05:37 07/11/18 05:37 CBC 07/10/18 07/11/18 Range/Units 04:05 05:37 WBC 17.4 H 14.7 H (4.0-11.0) th/mm3 RBC 3.64 L 3.48 L (4.00-5.30) mil/mm3 Hgb 11.8 D 11.4 L (11.6-15.3) gm/dL Hct 33.7 L 32.1 L (35.0-46.0) % Plt Count 214 220 (150-450) th/mm3 Neut # (Auto) 15.3 H 12.5 H (1.8-7.7) th/mm3 Lymph # (Auto) 1.1 1.2 (1.0-4.8) th/mm3 [place] # (Auto) 1.0 H 0.8 (0.0-0.9) th/mm3 Eos # (Auto) 0.0 0.1 (0.0-0.4) th/mm3 Baso # (Auto) 0.0 0.0 (0.0-0.2) th/mm3 Comprehensive Metabolic Panel 07/10/18 07/11/18 Range/Units 04:05 05:37 Sodium 137 138 (136-145) meq/L Potassium 3.4 L 2.9 L* (3.5-5.1) meq/L Chloride 106 107 (98-107) meq/L Carbon Dioxide 16.6 L 16.6 L (21.0-32.0) meq/L BUN 35 H 23 H (7-18) mg/dL Creatinine 1.52 H 1.13 H (0.50-1.00) mg/dL Calcium 7.8 L D 8.2 L (8.5-10.1) mg/dL Intake and Output 07/10/18 07/11/18 07/11/18 22:59 06:59 14:59 Intake Total 820 / 820 340 / 340 200 / 200 Output Total 700 / 700 400 / 400 Balance 120 / 120 -60 / -60 200 / 200 Intake: IV 100 / 100 100 / 100 200 / 200 KCl 20 mEq Premix Inj 20 meq In 100 / 100 100 ml @ 50 mls/hr IV.SIG NOW ONE Rx#:[id number] Flagyl 500 MG Inj 100 ML @ 100 100 / 100 100 / 100 100 / 100 mls/hr IV.SIG Q8H ERIK Rx#: [id number] Oral 720 / 720 240 / 240 Output: Urine 700 / 700 400 / 400 Other: Date of Last Bowel Movement 07/10/18 07/10/18 # Bowel Movements 4 0 Weight 73 kg Assessment and Plan - Assessment (1) Bradycardia Code(s): R00.1 - Bradycardia, unspecified Status: Acute (2) Colitis Code(s): K52.9 - Noninfective gastroenteritis and colitis, unspecified Status : Acute (3) Afib Code(s): I48.91 - Unspecified atrial fibrillation Status: Acute (4) Hypertension Code(s): I10 - Essential (primary) hypertension Status: Acute (5) Hypothyroid Code(s): E03.9 - Hypothyroidism, unspecified Status: Acute (6) Anxiety Code(s): F41.9 - Anxiety disorder, unspecified Status: Acute (7) SKY (acute kidney injury) Code(s): N17.9 - Acute kidney failure, unspecified Status: Acute (8) Hypotension Code(s): I95.9 - Hypotension, unspecified Status: Acute (9) Sepsis associated hypotension Code(s): A41.9 - Sepsis, unspecified organism; I95.9 - Hypotension, unspecified Status: Acute - Plan 1. Abdominal pain, which appears to be due to colitis. Clinically better 2. Sepsis. Resolved, most likely secondary to colitis 3. Hypotension responsive to IV fluids. Resolved 4. Acute bradycardia secondary to medications. Amiodarone stopped Con't Flecainide Metoprolol held Con't to follow rates for now, currently 50-70 5. Difficult to control atrial fibrillation with history of atrial fibrillation ablation x2 and atrial flutter ablation x1. Con't Flecainide for now, want to avoid Afib with RVR as possible Eliquis GI for EGD/Cscope Wed, Eliquis on hold 6. Previous hypothermia. 7. Acute kidney injury. 8. Echo pending
--- NOTE | 2018-07-11 11:51 | P.PNCC ---
Subjective Subjective Remarks/Hospital Course: 07/10: Afebrile. Patient awake and alert. Overnight heart rate range 48-60's. Flecainide dose was held last p.m. and review of the MAR. Today the patient was noted to be sustaining a MAP 60-61, patient received 250 cc 5% albumin and remained normotensive. Patient tolerating clear liquid diet. 07/11: Patient hemodynamically stable heart rate 50s-70s. Patient continues on flecainide. She was noted to have a positive stool for occult blood yesterday afternoon GI was consulted per plans for panendoscopy in the near future peer Eliquis was placed on hold. The patient was noted to have a low potassium level this a.m. 20 mEq IV was provided along with additional scheduled dosing of p.o. potassium. Objective Vital Signs / I&O: Vital Signs 07/10/18 12:00 07/10/18 13:00 07/10/18 14:00 Temperature 96.4 F L Pulse Rate 47 L 47 L 50 L Respiratory Rate 19 29 H 25 H Blood Pressure 118/56 L 132/61 Pulse Oximetry 94 L 92 L 92 L 07/10/18 14:01 07/10/18 15:00 07/10/18 15:01 Temperature Pulse Rate 57 L 48 L 49 L Respiratory Rate 49 H 12 14 Blood Pressure 131/57 L 103/52 L Pulse Oximetry 93 L 93 L 93 L 07/10/18 16:00 07/10/18 16:01 07/10/18 17:00 Temperature 97.6 F Pulse Rate 51 L 53 L 88 Respiratory Rate 19 19 29 H Blood Pressure 113/51 L 113/51 L Pulse Oximetry 94 L 93 L 94 L 07/10/18 17:01 07/10/18 18:00 07/10/18 19:00 Temperature Pulse Rate 66 48 L 56 L Respiratory Rate 26 H 21 24 Blood Pressure 141/66 H 135/63 148/66 H Pulse Oximetry 92 L 96 97 07/10/18 19:30 07/10/18 20:00 07/10/18 21:00 Temperature 97.6 F Pulse Rate 56 L 58 L Respiratory Rate 19 19 Blood Pressure 142/64 H 139/65 Pulse Oximetry 94 L 95 95 07/10/18 22:00 07/10/18 23:00 12/24/18 00:00 Temperature 98 F Pulse Rate 51 L 60 60 Respiratory Rate 24 17 18 Blood Pressure 139/64 140/64 127/61 Pulse Oximetry 94 L 95 96 07/11/18 01:00 07/11/18 02:00 07/11/18 03:00 Temperature Pulse Rate 63 61 60 Respiratory Rate 24 17 19 Blood Pressure 148/65 H 122/99 H 144/65 H Pulse Oximetry 91 L 93 L 96 07/11/18 04:00 07/11/18 05:00 07/11/18 06:00 Temperature 98.2 F Pulse Rate 63 62 66 Respiratory Rate 17 18 19 Blood Pressure 135/64 127/60 132/63 Pulse Oximetry 91 L 92 L 93 L 07/11/18 07:00 07/11/18 08:00 07/11/18 08:20 Temperature 98.7 F Pulse Rate 64 69 Respiratory Rate 17 24 Blood Pressure 141/62 H 134/86 Pulse Oximetry 93 L 93 L 93 L 07/11/18 09:00 07/11/18 10:00 Temperature Pulse Rate 126 H 69 Respiratory Rate 17 27 H Blood Pressure 147/67 H 144/68 H Pulse Oximetry 97 96 Intake & Output 07/10/18 07/11/18 07/11/18 18:59 06:59 18:59 Intake Total 1020 / 1020 340 / 340 200 / 200 Output Total 700 / 700 400 / 400 Balance 320 / 320 -60 / -60 200 / 200 Weight 73 kg Intake: IV 300 / 300 100 / 100 200 / 200 Maxipime Inj 2,000 MG In NS Inj 100 / 100 100 ML @ 200 mls/hr IV.SIG Q8H ERIK Rx#:[id number] KCl 20 mEq Premix Inj 20 meq In 100 / 100 100 ml @ 50 mls/hr IV.SIG NOW ONE Rx#:[id number] Flagyl 500 MG Inj 100 ML @ 100 200 / 200 100 / 100 100 / 100 mls/hr IV.SIG Q8H ERIK Rx#: [id number] Oral 720 / 720 240 / 240 Output: Urine 700 / 700 400 / 400 Other: Date of Last Bowel Movement 07/10/18 07/10/18 # Bowel Movements 4 0 Result Diagrams: 07/11/18 05:37 07/11/18 05:37 Other Results: Laboratory Results WBC 14.7 th/mm3 (4.0-11.0) H 07/11/18 05:37 RBC 3.48 mil/mm3 (4.00-5.30) L 07/11/18 05:37 Hgb 11.4 gm/dL (11.6-15.3) L 07/11/18 05:37 Hct 32.1 % (35.0-46.0) L 07/11/18 05:37 MCV 92.2 fL (80.0-100.0) 07/11/18 05:37 MCH 32.8 pg (27.0-34.0) 07/11/18 05:37 MCHC 35.6 % (32.0-36.0) 07/11/18 05:37 RDW 14.5 % (11.6-17.2) 07/11/18 05:37 Plt Count 220 th/mm3 (150-450) 07/11/18 05:37 MPV 8.0 fL (7.0-11.0) 07/11/18 05:37 Neut % (Auto) 85.1 % (16.0-70.0) H 07/11/18 05:37 Lymph % (Auto) 8.3 % (9.0-44.0) L 07/11/18 05:37 [place] % (Auto) 5.5 % (0.0-8.0) 07/11/18 05:37 Eos % (Auto) 0.8 % (0.0-4.0) 07/11/18 05:37 Baso % (Auto) 0.3 % (0.0-2.0) 07/11/18 05:37 Neut # (Auto) 12.5 th/mm3 (1.8-7.7) H 07/11/18 05:37 Lymph # (Auto) 1.2 th/mm3 (1.0-4.8) 07/11/18 05:37 [place] # (Auto) 0.8 th/mm3 (0.0-0.9) 07/11/18 05:37 Eos # (Auto) 0.1 th/mm3 (0.0-0.4) 07/11/18 05:37 Baso # (Auto) 0.0 th/mm3 (0.0-0.2) 07/11/18 05:37 WBC Differential . 07/11/18 05:37 Differential Comment Auto diff final 07/11/18 05:37 ESR 1 mm/hr (0-30) 07/09/18 02:44 PT 11.6 sec (9.8-11.6) 07/08/18 20:05 INR 1.1 Ratio 07/08/18 20:05 APTT 27.7 sec (23.4-31.7) 07/08/18 20:05 Sodium 138 meq/L (136-145) 07/11/18 05:37 Potassium 2.9 meq/L (3.5-5.1) L* 07/11/18 05:37 Chloride 107 meq/L (98-107) 07/11/18 05:37 Carbon Dioxide 16.6 meq/L (21.0-32.0) L 07/11/18 05:37 Anion Gap 14 meq/L (5-15) 07/11/18 05:37 BUN 23 mg/dL (7-18) H 07/11/18 05:37 Creatinine 1.13 mg/dL (0.50-1.00) H 07/11/18 05:37 Estimated GFR 46 mL/min (>89) L 07/11/18 05:37 POC Glucose 135 mg/dl (68-110) H 07/10/18 11:38 Random Glucose 100 mg/dL (74-106) 07/11/18 05:37 Lactic Acid 1.9 mmol/L (0.4-2.0) 07/09/18 07:43 Calcium 8.2 mg/dL (8.5-10.1) L 07/11/18 05:37 Calcium Adj for Albumin 7.8 mg/dL (8.5-10.1) L 07/09/18 02:44 Phosphorus 1.2 mg/dL (2.5-4.9) L D 07/11/18 05:37 Magnesium 2.0 mg/dL (1.5-2.5) 07/11/18 05:37 Total Bilirubin 1.1 mg/dL (0.2-1.0) H 07/08/18 20:05 AST 31 U/L (15-37) 07/08/18 20:05 ALT 36 U/L (10-53) 07/08/18 20:05 Alkaline Phosphatase 82 U/L (45-117) 07/08/18 20:05 Total Creatine Kinase 50 U/L (26-192) 07/08/18 20:05 Troponin I Less than 0.02 ng/mL (0.02-0.05) L 07/08/18 20:05 C-Reactive Protein 2.44 mg/dL (0.00-0.30) H 07/09/18 02:44 Total Protein 5.6 g/dL (6.4-8.2) L D 07/08/18 20:05 Albumin 2.2 g/dL (3.4-5.0) L D 07/09/18 02:44 Lipase 125 U/L (73-393) 07/08/18 20:05 Procalcitonin 0.10 ng/mL (0.00-0.08) H 07/09/18 01:26 TSH 1.650 uIU/mL (0.358-3.740) 07/09/18 02:44 Free T4 1.76 ng/dL (0.76-1.46) H 07/09/18 02:44 Free T3 0.86 pg/mL (2.18-3.98) L 07/09/18 02:44 Cortisol 43.8 mcg/dL 07/09/18 01:25 Nasal Screen MRSA (PCR) Not detected (Negative) 07/09/18 01:55 Stl C.difficile DNA Amp Negative (Negative) 07/08/18 22:01 St C. diff Tox Epid 027 Negative (Negative) 07/08/18 22:01 Blood Type A Positive 07/08/18 20:05 Antibody Screen Negative 07/08/18 20:[address] 07/08/18 20:02 CONCLUSION: 1. No evidence for aortic aneurysm or dissection as questioned. 2. Diffuse colonic wall thickening most notably in the transverse colon. Findings are most concerning for colitis, likely infectious or inflammatory in etiology. The mesenteric arteries are patent which make ischemic etiology unlikely. 3. Moderate severe sigmoid diverticulosis. 4. Coronary artery calcifications. 5. Additional ancillary findings, as above. Head CT 07/08/18 20:05 CONCLUSION: 1. No acute intracranial abnormality. 2. Atrophy and chronic white matter changes. . Abdomen/Pelvis CT 07/09/18 00:44 CONCLUSION: 1. Unremarkable study without evidence of bowel obstruction or free fluid or free air of any significance. Gallbladder is well distended. Kidneys are functioning. Degenerative arthritis lower lumbar spine. Bibasilar consolidation likely atelectasis 2. Sigmoid diverticulosis Objective Remarks: GENERAL: Chronically ill-appearing elderly female in no apparent distress SKIN: Warm and dry. Large ecchymotic bruising bilateral arms HEAD: Atraumatic. Normocephalic. EYES: Pupils equal and round. No scleral icterus. No injection or drainage. ENT: No nasal bleeding or discharge. Mucous membranes pink and moist. NECK: Trachea midline. No JVD. CARDIOVASCULAR: Normal rate, regular rhythm. RESPIRATORY: No accessory muscle use. Clear to auscultation. Breath sounds equal bilaterally. GASTROINTESTINAL: Abdomen soft, non-tender, nondistended. No guarding. MUSCULOSKELETAL: Extremities without clubbing, cyanosis, or edema. Small multiple areas of ecchymotic bruising on forearms, no obvious deformities. NEUROLOGICAL: Awake and alert. RASS 0. No gross focal/sensory deficits. Follows commands in all 4 extremities. Assessment and Plan - Assessment and Plan Plan: Active problems: Severe sepsis Hypotension-resolved acute bradycardia possible amiodarone toxicity hypothermia colitis, unclear etiology acute kidney injury GI bleed Plan Received 2L crystalloid bolus on 07/09. Received 250 cc 5% albumin last evening continue flagyl change rocephin to cefepime iv F/U blood cultures c. diff PCR negative D/C 'd amiodarone Begin flecainide per recommendations of Cardiology trend lactates cortisol, free t4, tsh-WNL procalcitonin, crp, esr-elevated re-consult Dr. Rincon- currently Dr. Frank was informed per Family Medicine may require vasopressors to maintain end-organ perfusion 2d echo sepsis source likely colitis, unless infectious etiology ruled out. strict i/o's daily bmp, cbc. Gastroenterology has been consulted-plan for panendoscopy in the near future Level 2 followup. Hemodynamically stable critical care medicine will sign off thank you for the consult Code Status: Full Discussed Condition With: Patient, patient's , and [employer] SERV[employer] CONSULTANT at bedside
--- NOTE | 2018-07-11 13:44 | P.PNFP ---
Subjective Interval history: Patient reports feeling well, feeling much better. She denies any fever, chills , abdominal pain, chest pain, shortness of breath. She reports that she wishes to proceed with EGD and colonoscopy. Discussed plan of care with patient, who expressed understanding. <Juan José Miramontes - 07/11/18 15:08> Results - Labs Result diagrams: 07/12/18 06:25 07/12/18 12:00 <Oliver Wilson - 07/12/18 13:43> Abnormal lab results 07/11/18 07/12/18 07/12/18 Range/Units 23:53 05:57 06:25 WBC (4.0-11.0) th/mm3 RBC (4.00-5.30) mil/mm3 Hct (35.0-46.0) % Neut % (Auto) (16.0-70.0) % Lymph % (Auto) (9.0-44.0) % Neut # (Auto) (1.8-7.7) th/mm3 Lymph # (Auto) (1.0-4.8) th/mm3 Mc[place]osh # (Auto) (0.0-0.9) th/mm3 Seg Neuts % (Manual) (16-70) % Lymphocytes % (Manual) (9-44) % Abs Neuts (Manual) (1.8-7.7) th/mm3 PT 12.2 H (9.8-11.6) sec Potassium (3.5-5.1) meq/L Carbon Dioxide (21.0-32.0) meq/L Creatinine (0.50-1.00) mg/dL Estimated GFR (>89) mL/min POC Glucose 134 H 142 H (68-110) mg/dl Random Glucose (74-106) mg/dL Calcium (8.5-10.1) mg/dL Phosphorus (2.5-4.9) mg/dL 07/12/18 07/12/18 07/12/18 Range/Units 06:25 06:25 11:59 WBC 15.7 H (4.0-11.0) th/mm3 RBC 3.62 L (4.00-5.30) mil/mm3 Hct 34.9 L (35.0-46.0) % Neut % (Auto) 90.1 H (16.0-70.0) % Lymph % (Auto) 3.6 L (9.0-44.0) % Neut # (Auto) 14.2 H (1.8-7.7) th/mm3 Lymph # (Auto) 0.6 L (1.0-4.8) th/mm3 Mcintosh # (Auto) 1.0 H (0.0-0.9) th/mm3 Seg Neuts % (Manual) 88 H (16-70) % Lymphocytes % (Manual) 3 L (9-44) % Abs Neuts (Manual) 14.8 H (1.8-7.7) th/mm3 PT (9.8-11.6) sec Potassium 2.9 L* (3.5-5.1) meq/L Carbon Dioxide 19.7 L (21.0-32.0) meq/L Creatinine (0.50-1.00) mg/dL Estimated GFR 59 L (>89) mL/min POC Glucose 160 H (68-110) mg/dl Random Glucose 143 H (74-106) mg/dL Calcium 7.9 L (8.5-10.1) mg/dL Phosphorus 1.0 L (2.5-4.9) mg/dL 12//18 Range/Units 12:00 WBC (4.0-11.0) th/mm3 RBC (4.00-5.30) mil/mm3 Hct (35.0-46.0) % Neut % (Auto) (16.0-70.0) % Lymph % (Auto) (9.0-44.0) % Neut # (Auto) (1.8-7.7) th/mm3 Lymph # (Auto) (1.0-4.8) th/mm3 Mc[place]osh # (Auto) (0.0-0.9) th/mm3 Seg Neuts % (Manual) (16-70) % Lymphocytes % (Manual) (9-44) % Abs Neuts (Manual) (1.8-7.7) th/mm3 PT (9.8-11.6) sec Potassium 3.1 L (3.5-5.1) meq/L Carbon Dioxide (21.0-32.0) meq/L Creatinine 1.03 H (0.50-1.00) mg/dL Estimated GFR 51 L (>89) mL/min POC Glucose (68-110) mg/dl Random Glucose 174 H (74-106) mg/dL Calcium 7.9 L (8.5-10.1) mg/dL Phosphorus 0.8 L (2.5-4.9) mg/dL Short CBC 07/12/18 Range/Units 06:25 WBC 15.7 H (4.0-11.0) th/mm3 Hgb 11.6 (11.6-15.3) gm/dL Hct 34.9 L (35.0-46.0) % Plt Count 238 (150-450) th/mm3 BMP 07/12/18 07/12/18 06:25 12:00 Sodium 137 137 Potassium 2.9 L* 3.1 L Chloride 105 105 Carbon Dioxide 19.7 L 21.3 BUN 14 13 Creatinine 0.92 1.03 H Calcium 7.9 L 7.9 L <Oliver Wilson - 07/12/18 13:43> Abnormal lab results 07/11/18 07/11/18 Range/Units 05:37 05:37 WBC 14.7 H (4.0-11.0) th/mm3 RBC 3.48 L (4.00-5.30) mil/mm3 Hgb 11.4 L (11.6-15.3) gm/dL Hct 32.1 L (35.0-46.0) % Neut % (Auto) 85.1 H (16.0-70.0) % Lymph % (Auto) 8.3 L (9.0-44.0) % Neut # (Auto) 12.5 H (1.8-7.7) th/mm3 Potassium 2.9 L* (3.5-5.1) meq/L Carbon Dioxide 16.6 L (21.0-32.0) meq/L BUN 23 H (7-18) mg/dL Creatinine 1.13 H (0.50-1.00) mg/dL Estimated GFR 46 L (>89) mL/min Calcium 8.2 L (8.5-10.1) mg/dL Phosphorus 1.2 L D (2.5-4.9) mg/dL Short CBC 07/11/18 Range/Units 05:37 WBC 14.7 H (4.0-11.0) th/mm3 Hgb 11.4 L (11.6-15.3) gm/dL Hct 32.1 L (35.0-46.0) % Plt Count 220 (150-450) th/mm3 BMP 07/11/18 05:37 Sodium 138 Potassium 2.9 L* Chloride 107 Carbon Dioxide 16.6 L BUN 23 H Creatinine 1.13 H Calcium 8.2 L <Miranda R3,Chandler - 07/11/18 13:44> Physical Exam Vital signs: Vital Signs 07/11/18 14:00 07/11/18 15:00 07/11/18 16:00 Temperature 98.8 F Pulse Rate 69 69 72 Respiratory Rate 20 22 23 Blood Pressure 139/65 142/67 H 150/67 H Pulse Oximetry 96 93 L 92 L 07/11/18 18:00 07/11/18 20:00 07/11/18 23:35 Temperature 97.8 F 98.3 F Pulse Rate 76 80 76 Respiratory Rate 19 18 Blood Pressure 152/69 H 156/73 H Pulse Oximetry 95 93 L 07/11/18 23:37 07/11/18 23:44 07/11/18 23:58 Temperature 96.7 F L Pulse Rate 76 97 H Respiratory Rate 22 20 20 Blood Pressure 146/68 H Pulse Oximetry 90 L 96 07/11/18 23:59 07/12/18 00:00 07/12/18 04:00 Temperature 98.9 F 98.6 F Pulse Rate 76 71 Respiratory Rate 18 18 Blood Pressure 139/87 160/69 H Pulse Oximetry 96 97 96 07/12/18 04:37 07/12/18 08:00 07/12/18 11:42 Temperature 97.9 F Pulse Rate 80 76 75 Respiratory Rate 24 18 18 Blood Pressure 146/64 H Pulse Oximetry 97 07/12/18 12:00 Temperature 98.3 F Pulse Rate 78 Respiratory Rate 18 Blood Pressure 139/64 Pulse Oximetry 96 Intake & Output 07/11/18 07/12/18 07/12/18 18:59 06:59 18:59 Intake Total 940 / 940 460 / 460 100 / 100 Output Total 900 / 900 650 / 650 Balance 40 / 40 -190 / -190 100 / 100 Weight 73 kg Intake: IV 300 / 300 100 / 100 100 / 100 KCl 20 mEq Premix Inj 20 meq In 100 / 100 100 ml @ 50 mls/hr IV.SIG NOW ONE Rx#:[id number] Flagyl 500 MG Inj 100 ML @ 100 200 / 200 100 / 100 100 / 100 mls/hr IV.SIG Q8H [facility] Rx#: [id number] Oral 640 / 640 360 / 360 Output: Urine 900 / 900 650 / 650 Other: Date of Last Bowel Movement 07/11/18 07/11/18 # Bowel Movements 1 0 <Oliver Wilson - 07/12/18 13:43> Vital Signs 07/10/18 14:00 07/10/18 14:01 07/10/18 15:00 Temperature Pulse Rate 50 L 57 L 48 L Respiratory Rate 25 H 49 H 12 Blood Pressure 131/57 L Pulse Oximetry 92 L 93 L 93 L 07/10/18 15:01 07/10/18 16:00 07/10/18 16:01 Temperature 97.6 F Pulse Rate 49 L 51 L 53 L Respiratory Rate 14 19 19 Blood Pressure 103/52 L 113/51 L 113/51 L Pulse Oximetry 93 L 94 L 93 L 07/10/18 17:00 07/10/18 17:01 07/10/18 18:00 Temperature Pulse Rate 88 66 48 L Respiratory Rate 29 H 26 H 21 Blood Pressure 141/66 H 135/63 Pulse Oximetry 94 L 92 L 96 07/10/18 19:00 07/10/18 19:30 07/10/18 20:00 Temperature 97.6 F Pulse Rate 56 L 56 L Respiratory Rate 24 19 Blood Pressure 148/66 H 142/64 H Pulse Oximetry 97 94 L 95 07/10/18 21:00 07/10/18 22:00 07/10/18 23:00 Temperature Pulse Rate 58 L 51 L 60 Respiratory Rate 19 24 17 Blood Pressure 139/65 139/64 140/64 Pulse Oximetry 95 94 L 95 07/11/18 00:00 07/11/18 01:00 07/11/18 02:00 Temperature 98 F Pulse Rate 60 63 61 Respiratory Rate 18 24 17 Blood Pressure 127/61 148/65 H 122/99 H Pulse Oximetry 96 91 L 93 L 07/11/18 03:00 07/11/18 04:00 07/11/18 05:00 Temperature 98.2 F Pulse Rate 60 63 62 Respiratory Rate 19 17 18 Blood Pressure 144/65 H 135/64 127/60 Pulse Oximetry 96 91 L 92 L 07/11/18 06:00 07/11/18 07:00 07/11/18 08:00 Temperature 98.7 F Pulse Rate 66 64 69 Respiratory Rate 19 17 24 Blood Pressure 132/63 141/62 H 134/86 Pulse Oximetry 93 L 93 L 93 L 07/11/18 08:20 07/11/18 09:00 07/11/18 10:00 Temperature Pulse Rate 126 H 69 Respiratory Rate 17 27 H Blood Pressure 147/67 H 144/68 H Pulse Oximetry 93 L 97 96 07/11/18 11:00 07/11/18 12:00 07/11/18 13:00 Temperature 97.9 F Pulse Rate 67 77 75 Respiratory Rate 20 21 28 H Blood Pressure 140/65 159/70 H 149/70 H Pulse Oximetry 95 94 L 94 L Intake & Output 07/10/18 07/11/18 07/11/18 18:59 06:59 18:59 Intake Total 1020 / 1020 340 / 340 200 / 200 Output Total 700 / 700 400 / 400 Balance 320 / 320 -60 / -60 200 / 200 Weight 73 kg Intake: IV 300 / 300 100 / 100 200 / 200 Maxipime Inj 2,000 MG In NS Inj 100 / 100 100 ML @ 200 mls/hr IV.SIG Q8H [facility] Rx#:[id number] KCl 20 mEq Premix Inj 20 meq In 100 / 100 100 ml @ 50 mls/hr IV.SIG NOW ONE Rx#:[id number] Flagyl 500 MG Inj 100 ML @ 100 200 / 200 100 / 100 100 / 100 mls/hr IV.SIG Q8H [facility] Rx#: [id number] Oral 720 / 720 240 / 240 Output: Urine 700 / 700 400 / 400 Other: Date of Last Bowel Movement 07/10/18 07/10/18 07/10/18 # Bowel Movements 4 0 <Miranda JoyceJuan José - 07/11/18 13:44> Narrative: GENERAL: Elderly appearing female, lying in bed in no obvious distress. SKIN: Warm and dry. Multiple ecchymoses over bilateral shins and arms. HEAD: Normocephalic. Small contusion on right parietal scalp without laceration , bleeding, or swelling. CARDIOVASCULAR: regular rhythm without murmurs, gallops, or rubs. RESPIRATORY: Breath sounds equal bilaterally. No accessory muscle use. GASTROINTESTINAL: Abdomen soft and nontender in any quadrant. Normal bowel sounds appreciated. Nondistended. MUSCULOSKELETAL: No cyanosis, or edema. Moves all extremities spontaneously. <Juan José Miramontes - 07/11/18 15:08> Assessment and Plan - Assessment (1) Sepsis associated hypotension Code(s): A41.9 - Sepsis, unspecified organism; I95.9 - Hypotension, unspecified Status: Acute Plan: Sepsis associated with possible colitis, hypotension resolved, and bradycardia resolved. -Critical care consulted and signed off today -Blood cultures from 07/08-no growth to date -Leukocytosis downtrending -Currently normotensive -Infectious disease consulted. Appreciate recommendations. -Cardiology consulted. Appreciate recommendations. -GI consulted and appreciated: Plan: - Clear liquid diet - EGD/colonoscopy to r/o Gi related etiology for sepsis possibly on Wed. - hold Eliquis - Cont. bowel regimen - Monitor hh - Supportive care Plan: -Continue Flagyl 500 mg IV every 8 hours (07/09 - present) -Stop Cefepime 2 g IV every 8 hours (07/09 - 07/10) -2D echo ordered and pending -Continue to hold Xanax (2) Hypotension Code(s): I95.9 - Hypotension, unspecified Status: Acute Plan: Currently normotensive. Blood pressure has responded to fluid boluses without requiring pressor support. -Continue to follow cardiology recommendations -Per cardiology restart flecainide -Stop amiodarone -Hold metoprolol -Monitor VS q4h and on continuous telemetry -Continue to hold antihypertensives (3) Symptomatic bradycardia Code(s): R00.1 - Bradycardia, unspecified Status: Acute Plan: HR in 50s-70s. M blood Ost likely secondary to medications. -Continue to hold Xanax -Continue to hold antihypertensives -Up out of bed with assistance -Fall precautions -Continue to monitor on telemetry -Cardiology consulted. Appreciate recommendations below: Amiodarone stopped Con't Flecainide Metoprolol held Echo pending (4) Afib Code(s): I48.91 - Unspecified atrial fibrillation Status: Acute Plan: Difficult to control atrial fibrillation with history of atrial fibrillation ablation x2 and atrial flutter ablation x1. Con't Flecainide for now, want to avoid Afib with RVR as possible GI for EGD/Cscope Wed, Eliquis on hold Will likely resume Eliquis after procedure -Currently holding amiodarone, amlodipine, and metoprolol -Continue to monitor on telemetry -Continue to follow cardiology recommendations: -Restart flecainide 100mg BID (5) Head injury Code(s): S09.90XA - Unspecified injury of head, initial encounter Status: Acute Plan: CT head negative for intracranial bleed or fracture -Monitor neurologic status (6) Hypothyroid Code(s): E03.9 - Hypothyroidism, unspecified Status: Acute Plan: Continue levothyroxine 50 mcg daily (7) Anxiety Code(s): F41.9 - Anxiety disorder, unspecified Status: Acute Plan: Hold home Xanax 0.25 mg p.o. due to c/f hypotension and bradycardia <Juan José Miramontes - 07/11/18 14:44> (1) Wheezing Code(s): R06.2 - Wheezing Status: Acute (2) Electrolyte abnormality Code(s): E87.8 - Other disorders of electrolyte and fluid balance, not elsewhere classified Status: Acute (3) Sepsis associated hypotension Code(s): A41.9 - Sepsis, unspecified organism; I95.9 - Hypotension, unspecified Status: Acute (4) Hypotension Code(s): I95.9 - Hypotension, unspecified Status: Resolved (5) Afib Code(s): I48.91 - Unspecified atrial fibrillation Status: Acute (6) Anxiety Code(s): F41.9 - Anxiety disorder, unspecified Status: Acute (7) Hypothyroid Code(s): E03.9 - Hypothyroidism, unspecified Status: Acute (8) Symptomatic bradycardia Code(s): R00.1 - Bradycardia, unspecified Status: Acute <Oliver Wilson - 07/12/18 13:43> - Assessment and Plan Hospital course: -Status post normal saline bolus 1 L x4 -Stool C. difficile screen negative -Leukocytosis improving; 9.4 on admission and then trended: 24.9, 17.4, 14.7 -Lactic acid trend 1.4 -> 2.3 -> 1.9 -CRP elevated at 2.44 -TSH within normal limits but free T4 elevated at 1.76, free T3 decreased at 0.86 -Thoracic aorta CT: No evidence for aortic aneurysm or dissection, diffuse colonic wall thickening most notably in the transverse colon. Findings are most concerning for colitis, likely infectious or inflammatory in etiology. The mesenteric arteries are patent which makes ischemic etiology unlikely. Moderate severe sigmoid diverticulosis. -Head CT: No acute intracranial abnormality. Atrophy and chronic white matter changes -Abdominal CT without contrast: Unremarkable study without evidence of bowel obstruction or free fluid or free air of any significance. Gallbladder is well distended. Kidneys are functioning. Degenerative arthritis lower lumbar spine. Bibasilar consolidation, likely atelectasis. Sigmoid diverticulosis. <Juan José Miramontes - 07/11/18 15:08> Discussed Condition With: Dr. Wilson, Dr. Morales <Juan José Miramontes - 07/11/18 15:08> - Attending Attestation Pt. examined independently during medical rounds on the morning of 07/11/2018 I have read the above resident note and agree with the assessment/plan as discussed with me I was involved in all medical decision making for this patient Oliver Wilson MD <Olivre Wilson - 07/12/18 13:43>
--- NOTE | 2018-07-11 14:14 | P.PNID ---
Subjective Remarks: Patient says she feels okay. She states that she feels a lot better. She has no abdominal pain currently. No fever or chills. 83-year-old white female who recently underwent an ablation procedure and was discharged home on flecainide. The patient was brought to the emergency department on 07/08/2018 after she fell and hit her head and also was noted to have severe abdominal pain. The patient was using medications for bowel movements including 2 rectal suppositories. She was noted to have constipation. She reports that she had a bowel movement after taking the suppositories and after that, she had been having some watery stools. Her temperature in the emergency department was normal, and at one point, her blood pressure was low with a BP of 70/45. A CTA was ordered to rule out aortic dissection. The reading of the thoracic CT reports diffuse colonic wall thickening, most notably in the transverse colon. Findings are most concerning for colitis, likely infectious or inflammatory in etiology. Moderate to severe sigmoid diverticulosis also was noted on that reading. PAST MEDICAL HISTORY: Atrial fibrillation, hypertension, hypothyroidism, history of hysterectomy, history of hip replacement, radiofrequency ablation. Allergies/Adverse Reactions: Allergies cefaclor Allergy (Severe, Verified 07/04/18 09:33) RASH paroxetine Allergy (Severe, Verified 07/04/18 09:33) Rash Sulfa (Sulfonamide Antibiotics) Allergy (Severe, Verified 07/04/18 09:33) RASH ciprofloxacin Allergy (Unknown, Verified 07/04/18 09:33) GI UPSET clonidine Allergy (Unknown, Verified 07/04/18 09:33) SKIN IRRITATION latex bandages Adverse Reaction (Mild, Uncoded 07/02/18 10:47) SKIN REDNESS, RASH Objective Vital Signs 07/10/18 15:00 07/10/18 15:01 07/10/18 16:00 Temperature 97.6 F Pulse Rate 48 L 49 L 51 L Respiratory Rate 12 14 19 Blood Pressure 103/52 L 113/51 L Pulse Oximetry 93 L 93 L 94 L 07/10/18 16:01 07/10/18 17:00 07/10/18 17:01 Temperature Pulse Rate 53 L 88 66 Respiratory Rate 19 29 H 26 H Blood Pressure 113/51 L 141/66 H Pulse Oximetry 93 L 94 L 92 L 07/10/18 18:00 07/10/18 19:00 07/10/18 19:30 Temperature Pulse Rate 48 L 56 L Respiratory Rate 21 24 Blood Pressure 135/63 148/66 H Pulse Oximetry 96 97 94 L 07/10/18 20:00 07/10/18 21:00 07/10/18 22:00 Temperature 97.6 F Pulse Rate 56 L 58 L 51 L Respiratory Rate 19 19 24 Blood Pressure 142/64 H 139/65 139/64 Pulse Oximetry 95 95 94 L 07/10/18 23:00 07/11/18 00:00 07/11/18 01:00 Temperature 98 F Pulse Rate 60 60 63 Respiratory Rate 17 18 24 Blood Pressure 140/64 127/61 148/65 H Pulse Oximetry 95 96 91 L 07/11/18 02:00 07/11/18 03:00 07/11/18 04:00 Temperature 98.2 F Pulse Rate 61 60 63 Respiratory Rate 17 19 17 Blood Pressure 122/99 H 144/65 H 135/64 Pulse Oximetry 93 L 96 91 L 07/11/18 05:00 07/11/18 06:00 07/11/18 07:00 Temperature Pulse Rate 62 66 64 Respiratory Rate 18 19 17 Blood Pressure 127/60 132/63 141/62 H Pulse Oximetry 92 L 93 L 93 L 07/11/18 08:00 07/11/18 08:20 07/11/18 09:00 Temperature 98.7 F Pulse Rate 69 126 H Respiratory Rate 24 17 Blood Pressure 134/86 147/67 H Pulse Oximetry 93 L 93 L 97 07/11/18 10:00 07/11/18 11:00 07/11/18 12:00 Temperature 97.9 F Pulse Rate 69 67 77 Respiratory Rate 27 H 20 21 Blood Pressure 144/68 H 140/65 159/70 H Pulse Oximetry 96 95 94 L 07/11/18 13:00 Temperature Pulse Rate 75 Respiratory Rate 28 H Blood Pressure 149/70 H Pulse Oximetry 94 L Intake & Output 07/10/18 07/11/18 07/11/18 18:59 06:59 18:59 Intake Total 1020 / 1020 340 / 340 200 / 200 Output Total 700 / 700 400 / 400 Balance 320 / 320 -60 / -60 200 / 200 Weight 73 kg Intake: IV 300 / 300 100 / 100 200 / 200 Maxipime Inj 2,000 MG In NS Inj 100 / 100 100 ML @ 200 mls/hr IV.SIG Q8H [facility] Rx#:[id number] KCl 20 mEq Premix Inj 20 meq In 100 / 100 100 ml @ 50 mls/hr IV.SIG NOW ONE Rx#:[id number] Flagyl 500 MG Inj 100 ML @ 100 200 / 200 100 / 100 100 / 100 mls/hr IV.SIG Q8H [facility] Rx#: [id number] Oral 720 / 720 240 / 240 Output: Urine 700 / 700 400 / 400 Other: Date of Last Bowel Movement 07/10/18 07/10/18 07/10/18 # Bowel Movements 4 0 07/08/18 20:00 Blood - Peripheral Aerobic Blood Culture - Preliminary No growth in 3 days 07/08/18 20:00 Blood - Peripheral Anaerobic Blood Culture - Preliminary No growth in 3 days 07/08/18 20:05 Blood - Peripheral Aerobic Blood Culture - Preliminary No growth in 3 days 07/08/18 20:05 Blood - Peripheral Anaerobic Blood Culture - Preliminary No growth in 3 days 07/10/18 09:04 Stool Stool Occult Blood (CANDIE) - Final Hemoccult positive Lab - Hematology Results 07/10/18 07/11/18 04:05 05:37 WBC 17.4 H 14.7 H RBC 3.64 L 3.48 L Hgb 11.8 D 11.4 L Hct 33.7 L 32.1 L MCV 92.5 92.2 MCH 32.4 32.8 MCHC 35.1 35.6 RDW 14.2 14.5 Plt Count 214 220 MPV 8.0 8.0 Neut % (Auto) 87.7 H 85.1 H Lymph % (Auto) 6.2 L 8.3 L [place] % (Auto) 5.7 5.5 Eos % (Auto) 0.2 0.8 Baso % (Auto) 0.2 0.3 Neut # (Auto) 15.3 H 12.5 H Lymph # (Auto) 1.1 1.2 [place] # (Auto) 1.0 H 0.8 Eos # (Auto) 0.0 0.1 Baso # (Auto) 0.0 0.0 WBC Differential . . Differential Comment Auto diff final Auto diff final Lab - Chemistry Results 07/10/18 07/10/18 07/11/18 04:05 11:38 05:37 Sodium 137 138 Potassium 3.4 L 2.9 L* Chloride 106 107 Carbon Dioxide 16.6 L 16.6 L Anion Gap 14 14 BUN 35 H 23 H Creatinine 1.52 H 1.13 H Estimated GFR 33 L 46 L POC Glucose 135 H Random Glucose 123 H 100 Calcium 7.8 L D 8.2 L Phosphorus 3.2 1.2 L D Magnesium 1.8 2.0 07/11/18 12:27 Sodium Potassium Chloride Carbon Dioxide Anion Gap BUN Creatinine Estimated GFR POC Glucose 97 Random Glucose Calcium Phosphorus Magnesium Imaging: ITS Impressions Thoracic Aorta CT 07/08/18 20:02 CONCLUSION: 1. No evidence for aortic aneurysm or dissection as questioned. 2. Diffuse colonic wall thickening most notably in the transverse colon. Findings are most concerning for colitis, likely infectious or inflammatory in etiology. The mesenteric arteries are patent which make ischemic etiology unlikely. 3. Moderate severe sigmoid diverticulosis. 4. Coronary artery calcifications. 5. Additional ancillary findings, as above. Head CT 07/08/18 20:05 CONCLUSION: 1. No acute intracranial abnormality. 2. Atrophy and chronic white matter changes. . Abdomen/Pelvis CT 07/09/18 00:44 CONCLUSION: 1. Unremarkable study without evidence of bowel obstruction or free fluid or free air of any significance. Gallbladder is well distended. Kidneys are functioning. Degenerative arthritis lower lumbar spine. Bibasilar consolidation likely atelectasis 2. Sigmoid diverticulosis Physical Exam: GENERAL: Patient in no acute distress. HEENT: Head atraumatic. Extraocular movements are grossly intact. Pupils reactive to light. No icterus. No conjunctival erythema. Oropharynx, mucosa is moist. LUNGS: Clear breath sounds. CARDIOVASCULAR: Regular S1 and S2. Systolic murmur at the right sternal border. ABDOMEN: Soft, protuberant. Decreased bowel sounds. No tenderness. EXTREMITIES: No clubbing, cyanosis or edema. Diffuse ecchymosis of both lower extremities and also of the upper extremities. SKIN: No diffuse rash. NEUROLOGIC: No gross focal finding. PSYCHIATRIC: Calm and cooperative. Assessment and Plan - Plan IMPRESSION: Abdominal pain and abnormal transverse colon findings suggesting colitis. Questionable inflammatory. The patient has a negative Clostridium difficile toxin. Leukocytosis. Cell count is improving. RECOMMENDATIONS: Continue Flagyl for now. Patient to have colonoscopy for further evaluation.
--- NOTE | 2018-07-11 14:48 | ECHRPT ---
Indication: Atrial Fib and Flutter CONCLUSIONS Normal left ventricular size. Wall thickness is measured at the upper limits of normal. The left ventricular systolic function is normal with an estimated ejection fraction in the range of 55-60%. The left atrial size is mildly dilated. Moderate to severe mitral valve regurgitation. Trace aortic valve regurgitation. There is moderate tricuspid regurgitation. The estimated pulmonary arterial pressure is 70 mmHg. BP: 134 / 86 HR: 71 Rhythm: MEASUREMENTS (Male / Female) Normal Values Technical Quality:Fair 2D ECHO LV Diastolic Diameter PLAX 4.4 cm 4.2 - 5.9 / 3.9 - 5.3 cm LV Systolic Diameter PLAX 2.3 cm IVS Diastolic Thickness 1.0 cm 0.6 - 1.0 / 0.6 - 0.9 cm LVPW Diastolic Thickness 1.0 cm 0.6 - 1.0 / 0.6 - 0.9 cm LV Relative Wall Thickness 0.5 RV Internal Dim ED PLAX 3.4 cm Aortic Root Diameter 2.8 cm LA Systolic Diameter LX 4.2 cm 3.0 - 4.0 / 2.7 - 3.8 cm DOPPLER TR Peak Velocity 371.0 cm/s TR Peak Gradient 55.1 mmHg Right Atrial Pressure 15.0 mmHg Pulmonary Artery Systolic Pressu 70.1 mmHg Right Ventricular Systolic Press 70.1 mmHg FINDINGS LEFT VENTRICLE Normal left ventricular size. Wall thickness is measured at the upper limits of normal. The left ventricular systolic function is normal with an estimated ejection fraction in the range of 55-60%. RIGHT VENTRICLE Normal right ventricular size and systolic function. LEFT ATRIUM The left atrial size is mildly dilated. RIGHT ATRIUM The right atrial size is normal. ATRIAL SEPTUM Normal atrial septal thickness without atrial level shunting by limited color doppler interrogation. AORTA The aortic root and proximal ascending aorta are normal in size on limited imaging. MITRAL VALVE Moderate mitral valve regurgitation. AORTIC VALVE Trileaflet aortic valve. Trace aortic valve regurgitation. TRICUSPID VALVE There is moderate tricuspid regurgitation. The estimated pulmonary arterial pressure is 70 mmHg. PULMONARY VALVE No pulmonary valve regurgitation or stenosis. VESSELS The inferior vena cava is normal in size. PERICARDIUM No pericardial effusion. Torrey Robles MD, FACC, FSCAI (Electronically Signed) Final Date:11 July 2018 14:47
[2018-07-12] MEDS: Chlorhexidine Gluconate 2% 1 Pack (2 Cloths) TOPICAL SCH (04:57)
[2018-07-12] MEDS: Levothyroxine 50 MCG Tablet PO SCH (05:11)
[2018-07-12 07:34] LABS: INR 1.2 Ratio; Prothrombin Time 12.2 sec (9.8-11.6)
[2018-07-12 07:59] LABS: Baso % (Auto) 0.1 % (0.0-2.0); Hematocrit 34.9 % (35.0-46.0); Hemoglobin 11.6 gm/dL (11.6-15.3); Lymph # (Auto) 0.6 th/mm3 (1.0-4.8); Lymph % (Auto) 3.6 % (9.0-44.0); Mean Corpuscular HGB Conc 33.1 % (32.0-36.0); Mean Corpuscular Hemoglobin 31.9 pg (27.0-34.0); Mean Corpuscular Volume 96.4 fL (80.0-100.0); Mean Platelet Volume 7.8 fL (7.0-11.0); Mono % (Auto) 6.2 % (0.0-8.0); Neut # (Auto) 14.2 th/mm3 (1.8-7.7); Neut % (Auto) 90.1 % (16.0-70.0); Platelet Count 238 th/mm3 (150-450); Red Blood Count 3.62 mil/mm3 (4.00-5.30); Red Cell Distribution Width 14.5 % (11.6-17.2); White Blood Count 15.7 th/mm3 (4.0-11.0)
[2018-07-12 08:04] LABS: Calcium 7.9 mg/dL (8.5-10.1); Carbon Dioxide 19.7 meq/L (21.0-32.0)
[2018-07-12 08:07] LABS: Potassium 2.9 meq/L (3.5-5.1)
[2018-07-12] MEDS: Flecainide 100 MG Tablet PO SCH ×2 (09:29→20:50)
[2018-07-12] MEDS ORDERED: Potassium Chloride 25 MEQ Effervescent Tablet PO ONE ×4 (09:35→21:33)
--- NOTE | 2018-07-12 09:41 | P.PNFP ---
Subjective Interval history: Feeling lousy because she has to stay in hospital on [address]. States breathing treatment she received overnight due to wheezing and slight chest tightness made her feel much better Still feeling nauseous slightly, not enjoying CLD and requests Ensure No palpitations, chest pain, or SOB currently <Cynthia Louann Waddell N - 07/12/18 10:16> Results - Labs Result diagrams: 07/12/18 06:25 07/12/18 12:00 <Oliver Wilson - 07/12/18 14:21> Abnormal lab results 07/11/18 07/12/18 07/12/18 Range/Units 23:53 05:57 06:25 WBC (4.0-11.0) th/mm3 RBC (4.00-5.30) mil/mm3 Hct (35.0-46.0) % Neut % (Auto) (16.0-70.0) % Lymph % (Auto) (9.0-44.0) % Neut # (Auto) (1.8-7.7) th/mm3 Lymph # (Auto) (1.0-4.8) th/mm3 [place] # (Auto) (0.0-0.9) th/mm3 Seg Neuts % (Manual) (16-70) % Lymphocytes % (Manual) (9-44) % Abs Neuts (Manual) (1.8-7.7) th/mm3 PT 12.2 H (9.8-11.6) sec Potassium (3.5-5.1) meq/L Carbon Dioxide (21.0-32.0) meq/L Creatinine (0.50-1.00) mg/dL Estimated GFR (>89) mL/min POC Glucose 134 H 142 H (68-110) mg/dl Random Glucose (74-106) mg/dL Calcium (8.5-10.1) mg/dL Phosphorus (2.5-4.9) mg/dL 07/12/18 07/12/18 07/12/18 Range/Units 06:25 06:25 11:59 WBC 15.7 H (4.0-11.0) th/mm3 RBC 3.62 L (4.00-5.30) mil/mm3 Hct 34.9 L (35.0-46.0) % Neut % (Auto) 90.1 H (16.0-70.0) % Lymph % (Auto) 3.6 L (9.0-44.0) % Neut # (Auto) 14.2 H (1.8-7.7) th/mm3 Lymph # (Auto) 0.6 L (1.0-4.8) th/mm3 [place] # (Auto) 1.0 H (0.0-0.9) th/mm3 Seg Neuts % (Manual) 88 H (16-70) % Lymphocytes % (Manual) 3 L (9-44) % Abs Neuts (Manual) 14.8 H (1.8-7.7) th/mm3 PT (9.8-11.6) sec Potassium 2.9 L* (3.5-5.1) meq/L Carbon Dioxide 19.7 L (21.0-32.0) meq/L Creatinine (0.50-1.00) mg/dL Estimated GFR 59 L (>89) mL/min POC Glucose 160 H (68-110) mg/dl Random Glucose 143 H (74-106) mg/dL Calcium 7.9 L (8.5-10.1) mg/dL Phosphorus 1.0 L (2.5-4.9) mg/dL 12/25/18 Range/Units 12:00 WBC (4.0-11.0) th/mm3 RBC (4.00-5.30) mil/mm3 Hct (35.0-46.0) % Neut % (Auto) (16.0-70.0) % Lymph % (Auto) (9.0-44.0) % Neut # (Auto) (1.8-7.7) th/mm3 Lymph # (Auto) (1.0-4.8) th/mm3 [place] # (Auto) (0.0-0.9) th/mm3 Seg Neuts % (Manual) (16-70) % Lymphocytes % (Manual) (9-44) % Abs Neuts (Manual) (1.8-7.7) th/mm3 PT (9.8-11.6) sec Potassium 3.1 L (3.5-5.1) meq/L Carbon Dioxide (21.0-32.0) meq/L Creatinine 1.03 H (0.50-1.00) mg/dL Estimated GFR 51 L (>89) mL/min POC Glucose (68-110) mg/dl Random Glucose 174 H (74-106) mg/dL Calcium 7.9 L (8.5-10.1) mg/dL Phosphorus 0.8 L (2.5-4.9) mg/dL Short CBC 07/12/18 Range/Units 06:25 WBC 15.7 H (4.0-11.0) th/mm3 Hgb 11.6 (11.6-15.3) gm/dL Hct 34.9 L (35.0-46.0) % Plt Count 238 (150-450) th/mm3 BMP 07/12/18 07/12/18 06:25 12:00 Sodium 137 137 Potassium 2.9 L* 3.1 L Chloride 105 105 Carbon Dioxide 19.7 L 21.3 BUN 14 13 Creatinine 0.92 1.03 H Calcium 7.9 L 7.9 L <Oliver Wilson - 07/12/18 14:21> Abnormal lab results 07/11/18 07/12/18 07/12/18 Range/Units 23:53 05:57 06:25 WBC (4.0-11.0) th/mm3 RBC (4.00-5.30) mil/mm3 Hct (35.0-46.0) % Neut % (Auto) (16.0-70.0) % Lymph % (Auto) (9.0-44.0) % Neut # (Auto) (1.8-7.7) th/mm3 Lymph # (Auto) (1.0-4.8) th/mm3 [place] # (Auto) (0.0-0.9) th/mm3 PT 12.2 H (9.8-11.6) sec Potassium (3.5-5.1) meq/L Carbon Dioxide (21.0-32.0) meq/L Estimated GFR (>89) mL/min POC Glucose 134 H 142 H (68-110) mg/dl Random Glucose (74-106) mg/dL Calcium (8.5-10.1) mg/dL Phosphorus (2.5-4.9) mg/dL 07/12/18 07/12/18 Range/Units 06:25 06:25 WBC 15.7 H (4.0-11.0) th/mm3 RBC 3.62 L (4.00-5.30) mil/mm3 Hct 34.9 L (35.0-46.0) % Neut % (Auto) 90.1 H (16.0-70.0) % Lymph % (Auto) 3.6 L (9.0-44.0) % Neut # (Auto) 14.2 H (1.8-7.7) th/mm3 Lymph # (Auto) 0.6 L (1.0-4.8) th/mm3 [place] # (Auto) 1.0 H (0.0-0.9) th/mm3 PT (9.8-11.6) sec Potassium 2.9 L* (3.5-5.1) meq/L Carbon Dioxide 19.7 L (21.0-32.0) meq/L Estimated GFR 59 L (>89) mL/min POC Glucose (68-110) mg/dl Random Glucose 143 H (74-106) mg/dL Calcium 7.9 L (8.5-10.1) mg/dL Phosphorus 1.0 L (2.5-4.9) mg/dL Short CBC 07/12/18 Range/Units 06:25 WBC 15.7 H (4.0-11.0) th/mm3 Hgb 11.6 (11.6-15.3) gm/dL Hct 34.9 L (35.0-46.0) % Plt Count 238 (150-450) th/mm3 BMP 07/12/18 06:25 Sodium 137 Potassium 2.9 L* Chloride 105 Carbon Dioxide 19.7 L BUN 14 Creatinine 0.92 Calcium 7.9 L <Abid R2,Louann N - 07/12/18 09:41> Physical Exam Vital signs: Vital Signs 07/11/18 15:00 07/11/18 16:00 07/11/18 18:00 Temperature 98.8 F 97.8 F Pulse Rate 69 72 76 Respiratory Rate 22 23 19 Blood Pressure 142/67 H 150/67 H 152/69 H Pulse Oximetry 93 L 92 L 95 07/11/18 20:00 07/11/18 23:35 07/11/18 23:37 Temperature 98.3 F 96.7 F L Pulse Rate 80 76 76 Respiratory Rate 18 22 Blood Pressure 156/73 H 146/68 H Pulse Oximetry 93 L 90 L 07/11/18 23:44 07/11/18 23:58 07/11/18 23:59 Temperature Pulse Rate 97 H Respiratory Rate 20 20 Blood Pressure Pulse Oximetry 96 96 07/12/18 00:00 07/12/18 04:00 07/12/18 04:37 Temperature 98.9 F 98.6 F Pulse Rate 76 71 80 Respiratory Rate 18 18 24 Blood Pressure 139/87 160/69 H Pulse Oximetry 97 96 07/12/18 08:00 07/12/18 11:42 07/12/18 12:00 Temperature 97.9 F 98.3 F Pulse Rate 76 75 78 Respiratory Rate 18 18 18 Blood Pressure 146/64 H 139/64 Pulse Oximetry 97 96 Intake & Output 07/11/18 07/12/18 07/12/18 18:59 06:59 18:59 Intake Total 940 / 940 460 / 460 100 / 100 Output Total 900 / 900 650 / 650 Balance 40 / 40 -190 / -190 100 / 100 Weight 73 kg Intake: IV 300 / 300 100 / 100 100 / 100 KCl 20 mEq Premix Inj 20 meq In 100 / 100 100 ml @ 50 mls/hr IV.SIG NOW ONE Rx#:[id number] Flagyl 500 MG Inj 100 ML @ 100 200 / 200 100 / 100 100 / 100 mls/hr IV.SIG Q8H [facility] Rx#: [id number] Oral 640 / 640 360 / 360 Output: Urine 900 / 900 650 / 650 Other: Date of Last Bowel Movement 07/11/18 07/11/18 # Bowel Movements 1 0 <Oliver Wilson - 07/12/18 14:21> Vital Signs 07/11/18 10:00 07/11/18 11:00 07/11/18 12:00 Temperature 97.9 F Pulse Rate 69 67 77 Respiratory Rate 27 H 20 21 Blood Pressure 144/68 H 140/65 159/70 H Pulse Oximetry 96 95 94 L 07/11/18 13:00 07/11/18 14:00 07/11/18 15:00 Temperature Pulse Rate 75 69 69 Respiratory Rate 28 H 20 22 Blood Pressure 149/70 H 139/65 142/67 H Pulse Oximetry 94 L 96 93 L 07/11/18 16:00 07/11/18 18:00 07/11/18 20:00 Temperature 98.8 F 97.8 F 98.3 F Pulse Rate 72 76 80 Respiratory Rate 23 19 18 Blood Pressure 150/67 H 152/69 H 156/73 H Pulse Oximetry 92 L 95 93 L 07/11/18 23:35 07/11/18 23:37 07/11/18 23:44 Temperature 96.7 F L Pulse Rate 76 76 97 H Respiratory Rate 22 20 Blood Pressure 146/68 H Pulse Oximetry 90 L 07/11/18 23:58 07/11/18 23:59 07/12/18 00:00 Temperature 98.9 F Pulse Rate 76 Respiratory Rate 20 18 Blood Pressure 139/87 Pulse Oximetry 96 96 97 07/12/18 04:00 07/12/18 04:37 07/12/18 08:00 Temperature 98.6 F 97.9 F Pulse Rate 71 80 76 Respiratory Rate 18 24 18 Blood Pressure 160/69 H 146/64 H Pulse Oximetry 96 93 L Intake & Output 07/11/18 07/12/18 07/12/18 18:59 06:59 18:59 Intake Total 940 / 940 460 / 460 Output Total 900 / 900 650 / 650 Balance 40 / 40 -190 / -190 Weight 73 kg Intake: IV 300 / 300 100 / 100 KCl 20 mEq Premix Inj 20 meq In 100 / 100 100 ml @ 50 mls/hr IV.SIG NOW ONE Rx#:[id number] Flagyl 500 MG Inj 100 ML @ 100 200 / 200 100 / 100 mls/hr IV.SIG Q8H [facility] Rx#: [id number] Oral 640 / 640 360 / 360 Output: Urine 900 / 900 650 / 650 Other: Date of Last Bowel Movement 07/11/18 07/11/18 # Bowel Movements 1 0 <Abid R2Louann N - 07/12/18 09:41> Narrative: GENERAL: Elderly appearing female, lying in bed in no obvious distress. SKIN: Warm and dry. Multiple ecchymoses over bilateral shins and arms. HEAD: Normocephalic. Small contusion on right parietal scalp without laceration , bleeding, or swelling. CARDIOVASCULAR: regular rhythm without murmurs, gallops, or rubs. RESPIRATORY: Breath sounds equal bilaterally. No accessory muscle use. Slightly restricted air flow. GASTROINTESTINAL: Abdomen soft and nontender in any quadrant. Normal bowel sounds appreciated. Nondistended. MUSCULOSKELETAL: No cyanosis, or edema. Moves all extremities spontaneously. <Abidianne Louann Waddell N - 07/12/18 10:16> Assessment and Plan - Assessment (1) Wheezing Code(s): R06.2 - Wheezing Status: Acute (2) Electrolyte abnormality Code(s): E87.8 - Other disorders of electrolyte and fluid balance, not elsewhere classified Status: Acute (3) Sepsis associated hypotension Code(s): A41.9 - Sepsis, unspecified organism; I95.9 - Hypotension, unspecified Status: Acute (4) Hypotension Code(s): I95.9 - Hypotension, unspecified Status: Resolved (5) Afib Code(s): I48.91 - Unspecified atrial fibrillation Status: Acute (6) Anxiety Code(s): F41.9 - Anxiety disorder, unspecified Status: Acute (7) Hypothyroid Code(s): E03.9 - Hypothyroidism, unspecified Status: Acute (8) Symptomatic bradycardia Code(s): R00.1 - Bradycardia, unspecified Status: Acute <Oliver Wilson - 07/12/18 14:21> (1) Wheezing Code(s): R06.2 - Wheezing Status: Acute Plan: Occurred overnight. Give albuterol TID PRN, space out to avoid tachycardia (2) Electrolyte abnormality Code(s): E87.8 - Other disorders of electrolyte and fluid balance, not elsewhere classified Status: Acute Plan: Phosphate level of 1.0, K+ 2.9 Start IV sodium phosphate per 0.25-0.5 mmol/kg (20 mml) IV once Give 2 packets K-lyte Check BMP at 3 pm (3) Sepsis associated hypotension Code(s): A41.9 - Sepsis, unspecified organism; I95.9 - Hypotension, unspecified Status: Acute Plan: Improving Sepsis associated with possible colitis, hypotension resolved, and bradycardia resolved. -Critical care consulted and signed off 07/11 -Blood cultures from 07/08-no growth to date -Leukocytosis stable -Currently normotensive -Infectious disease consulted. Appreciate recommendations. -Cardiology consulted. Appreciate recommendations. -GI consulted and appreciated Plan: - Clear liquid diet - EGD/colonoscopy to r/o Gi related etiology for sepsis tomorrow - Eliquis held - Bowel regimen to start today after electrolyte correction - Hgb wnl, daily CBC -On Flagyl 500 mg IV every 8 hours (07/09 - present) -S/p Cefepime 2 g IV every 8 hours (07/09 - 07/10) -2D echo shows no abnormalities: mod-severe mitral regurg, mod tricuspid regurg , EF 55-60% -Continue to hold Xanax (4) Hypotension Code(s): I95.9 - Hypotension, unspecified Status: Resolved Plan: Resolved. (5) Afib Code(s): I48.91 - Unspecified atrial fibrillation Status: Acute Plan: Difficult to control atrial fibrillation with history of atrial fibrillation ablation x2 and atrial flutter ablation x1. Con't Flecainide for now, want to avoid Afib with RVR as possible GI for EGD/Cscope Wed, Eliquis on hold Will likely resume Eliquis after procedure -Currently holding amiodarone, amlodipine, and metoprolol -Continue to monitor on telemetry -Continue to follow cardiology recommendations: -flecainide 100mg BID (6) Anxiety Code(s): F41.9 - Anxiety disorder, unspecified Status: Acute Plan: May resume Xanax 0.25 mg p.o. (7) Hypothyroid Code(s): E03.9 - Hypothyroidism, unspecified Status: Acute Plan: Continue levothyroxine 50 mcg daily (8) Symptomatic bradycardia Code(s): R00.1 - Bradycardia, unspecified Status: Acute Plan: Resolved <Abid R2,Louann N - 07/12/18 10:37> - Assessment and Plan Hospital course: -Status post normal saline bolus 1 L x4 -Stool C. difficile screen negative -Leukocytosis improving; 9.4 on admission and then trended: 24.9, 17.4, 14.7 -Lactic acid trend 1.4 -> 2.3 -> 1.9 -CRP elevated at 2.44 -TSH within normal limits but free T4 elevated at 1.76, free T3 decreased at 0.86 -Thoracic aorta CT: No evidence for aortic aneurysm or dissection, diffuse colonic wall thickening most notably in the transverse colon. Findings are most concerning for colitis, likely infectious or inflammatory in etiology. The mesenteric arteries are patent which makes ischemic etiology unlikely. Moderate severe sigmoid diverticulosis. -Head CT: No acute intracranial abnormality. Atrophy and chronic white matter changes -Abdominal CT without contrast: Unremarkable study without evidence of bowel obstruction or free fluid or free air of any significance. Gallbladder is well distended. Kidneys are functioning. Degenerative arthritis lower lumbar spine. Bibasilar consolidation, likely atelectasis. Sigmoid diverticulosis. <Louann Gonzalez - 07/12/18 10:47> Discharge Planning: Pending completion of workup and clearance from cardio <Louann Gonzalez - 07/12/18 10:47> - Attending Attestation Patient examined independently of resident physicians on 07/12/18 I personally reviewed daily updates with the patient and answered all questions I have read the above note by the resident physicians and agree with the assessment/plan as discussed with me I was involved in all medical decision making for this patient Oliver Wilson MD <Oliver Wilson - 07/12/18 14:21>
--- NOTE | 2018-07-12 10:09 | P.PNGI ---
Subjective Interval history: Pt is resting in bed, denies nausea, vomiting or abd pain, no bleeding <Batsheva Connelly - Last Filed: 07/12/18 10:01> Physical Exam Vital signs: Vital Signs 07/11/18 11:00 07/11/18 12:00 07/11/18 13:00 Temperature 97.9 F Pulse Rate 67 77 75 Respiratory Rate 20 21 28 H Blood Pressure 140/65 159/70 H 149/70 H Pulse Oximetry 95 94 L 94 L 07/11/18 14:00 07/11/18 15:00 07/11/18 16:00 Temperature 98.8 F Pulse Rate 69 69 72 Respiratory Rate 20 22 23 Blood Pressure 139/65 142/67 H 150/67 H Pulse Oximetry 96 93 L 92 L 07/11/18 18:00 07/11/18 20:00 07/11/18 23:35 Temperature 97.8 F 98.3 F Pulse Rate 76 80 76 Respiratory Rate 19 18 Blood Pressure 152/69 H 156/73 H Pulse Oximetry 95 93 L 07/11/18 23:37 07/11/18 23:44 07/11/18 23:58 Temperature 96.7 F L Pulse Rate 76 97 H Respiratory Rate 22 20 20 Blood Pressure 146/68 H Pulse Oximetry 90 L 96 07/11/18 23:59 07/12/18 00:00 07/12/18 04:00 Temperature 98.9 F 98.6 F Pulse Rate 76 71 Respiratory Rate 18 18 Blood Pressure 139/87 160/69 H Pulse Oximetry 96 97 96 07/12/18 04:37 07/12/18 08:00 Temperature 97.9 F Pulse Rate 80 76 Respiratory Rate 24 18 Blood Pressure 146/64 H Pulse Oximetry 93 L Intake & Output 07/11/18 07/12/18 07/12/18 18:59 06:59 18:59 Intake Total 940 / 940 460 / 460 Output Total 900 / 900 650 / 650 Balance 40 / 40 -190 / -190 Weight 73 kg Intake: IV 300 / 300 100 / 100 KCl 20 mEq Premix Inj 20 meq In 100 / 100 100 ml @ 50 mls/hr IV.SIG NOW ONE Rx#:[id number] Flagyl 500 MG Inj 100 ML @ 100 200 / 200 100 / 100 mls/hr IV.SIG Q8H [facility] Rx#: [id number] Oral 640 / 640 360 / 360 Output: Urine 900 / 900 650 / 650 Other: Date of Last Bowel Movement 07/11/18 07/11/18 # Bowel Movements 1 0 Narrative: GENERAL: Elderly appearing female, lying in bed in no obvious distress. SKIN: Warm and dry. Multiple ecchymoses over bilateral shins and arms. CARDIOVASCULAR: regular rhythm without murmurs, gallops, or rubs. RESPIRATORY: Breath sounds equal bilaterally. No accessory muscle use. GASTROINTESTINAL: Abdomen soft and nontender in any quadrant. Normal bowel sounds appreciated. Nondistended. MUSCULOSKELETAL: No cyanosis, or edema. Moves all extremities spontaneously. Neuro: Alert and oriented X 3 <Batsheva Connelly - Last Filed: 07/12/18 10:01> Vital signs: Vital Signs 07/11/18 11:00 07/11/18 12:00 07/11/18 13:00 Temperature 97.9 F Pulse Rate 67 77 75 Respiratory Rate 20 21 28 H Blood Pressure 140/65 159/70 H 149/70 H Pulse Oximetry 95 94 L 94 L 07/11/18 14:00 07/11/18 15:00 07/11/18 16:00 Temperature 98.8 F Pulse Rate 69 69 72 Respiratory Rate 20 22 23 Blood Pressure 139/65 142/67 H 150/67 H Pulse Oximetry 96 93 L 92 L 07/11/18 18:00 07/11/18 20:00 07/11/18 23:35 Temperature 97.8 F 98.3 F Pulse Rate 76 80 76 Respiratory Rate 19 18 Blood Pressure 152/69 H 156/73 H Pulse Oximetry 95 93 L 07/11/18 23:37 07/11/18 23:44 07/11/18 23:58 Temperature 96.7 F L Pulse Rate 76 97 H Respiratory Rate 22 20 20 Blood Pressure 146/68 H Pulse Oximetry 90 L 96 07/11/18 23:59 07/12/18 00:00 07/12/18 04:00 Temperature 98.9 F 98.6 F Pulse Rate 76 71 Respiratory Rate 18 18 Blood Pressure 139/87 160/69 H Pulse Oximetry 96 97 96 07/12/18 04:37 07/12/18 08:00 Temperature 97.9 F Pulse Rate 80 76 Respiratory Rate 24 18 Blood Pressure 146/64 H Pulse Oximetry 93 L Intake & Output 07/11/18 07/12/18 07/12/18 18:59 06:59 18:59 Intake Total 940 / 940 460 / 460 Output Total 900 / 900 650 / 650 Balance 40 / 40 -190 / -190 Weight 73 kg Intake: IV 300 / 300 100 / 100 KCl 20 mEq Premix Inj 20 meq In 100 / 100 100 ml @ 50 mls/hr IV.SIG NOW ONE Rx#:[id number] Flagyl 500 MG Inj 100 ML @ 100 200 / 200 100 / 100 mls/hr IV.SIG Q8H [facility] Rx#: [id number] Oral 640 / 640 360 / 360 Output: Urine 900 / 900 650 / 650 Other: Date of Last Bowel Movement 07/11/18 07/11/18 # Bowel Movements 1 0 <Jaquan Bashir - Last Filed: 07/12/18 10:14> Results - Labs CBC & Chem 7: 07/12/18 06:25 07/12/18 06:25 Laboratory Results - last 24 hr 07/11/18 07/11/18 07/11/18 12:27 17:17 23:53 WBC RBC Hgb Hct MCV MCH MCHC RDW Plt Count MPV Prelim Diff (Auto) Neut % (Auto) Lymph % (Auto) [place] % (Auto) Eos % (Auto) Baso % (Auto) Neut # (Auto) Lymph # (Auto) [place] # (Auto) Eos # (Auto) Baso # (Auto) Differential Comment Hematology Comments PT INR Sodium Potassium Chloride Carbon Dioxide Anion Gap BUN Creatinine Estimated GFR POC Glucose 97 103 134 H Random Glucose Calcium Phosphorus Magnesium 07/12/18 07/12/18 07/12/18 05:57 06:25 06:25 WBC 15.7 H RBC 3.62 L Hgb 11.6 Hct 34.9 L MCV 96.4 D MCH 31.9 MCHC 33.1 RDW 14.5 Plt Count 238 MPV 7.8 Prelim Diff (Auto) Slide review pending Neut % (Auto) 90.1 H Lymph % (Auto) 3.6 L [place] % (Auto) 6.2 Eos % (Auto) 0.0 Baso % (Auto) 0.1 Neut # (Auto) 14.2 H Lymph # (Auto) 0.6 L [place] # (Auto) 1.0 H Eos # (Auto) 0.0 Baso # (Auto) 0.0 Differential Comment . Hematology Comments PT 12.2 H INR 1.2 Sodium Potassium Chloride Carbon Dioxide Anion Gap BUN Creatinine Estimated GFR POC Glucose 142 H Random Glucose Calcium Phosphorus Magnesium 07/12/18 06:25 WBC RBC Hgb Hct MCV MCH MCHC RDW Plt Count MPV Prelim Diff (Auto) Neut % (Auto) Lymph % (Auto) [place] % (Auto) Eos % (Auto) Baso % (Auto) Neut # (Auto) Lymph # (Auto) [place] # (Auto) Eos # (Auto) Baso # (Auto) Differential Comment Hematology Comments PT INR Sodium 137 Potassium 2.9 L* Chloride 105 Carbon Dioxide 19.7 L Anion Gap 12 BUN 14 Creatinine 0.92 Estimated GFR 59 L POC Glucose Random Glucose 143 H Calcium 7.9 L Phosphorus 1.0 L Magnesium 2.0 Microbiology 07/08/18 20:00 Blood - Peripheral Aerobic Blood Culture - Preliminary No growth in 3 days 07/08/18 20:00 Blood - Peripheral Anaerobic Blood Culture - Preliminary No growth in 3 days 07/08/18 20:05 Blood - Peripheral Aerobic Blood Culture - Preliminary No growth in 3 days 07/08/18 20:05 Blood - Peripheral Anaerobic Blood Culture - Preliminary No growth in 3 days <JannajoseBereniceshena - Last Filed: 07/12/18 10:01> - Labs CBC & Chem 7: 07/12/18 06:25 07/12/18 06:25 Laboratory Results - last 24 hr 07/11/18 07/11/18 07/11/18 12:27 17:17 23:53 WBC RBC Hgb Hct MCV MCH MCHC RDW Plt Count MPV Prelim Diff (Auto) Neut % (Auto) Lymph % (Auto) Walker % (Auto) Eos % (Auto) Baso % (Auto) Neut # (Auto) Lymph # (Auto) [place] # (Auto) Eos # (Auto) Baso # (Auto) WBC Differential Seg Neuts % (Manual) Band Neuts % (Manual) Lymphocytes % (Manual) Monocytes % (Manual) Metamyelocytes % (Man) Abs Neuts (Manual) Differential Comment Platelet Estimate Platelet Morphology Hematology Comments PT INR Sodium Potassium Chloride Carbon Dioxide Anion Gap BUN Creatinine Estimated GFR POC Glucose 97 103 134 H Random Glucose Calcium Phosphorus Magnesium 07/12/18 07/12/18 07/12/18 05:57 06:25 06:25 WBC 15.7 H RBC 3.62 L Hgb 11.6 Hct 34.9 L MCV 96.4 D MCH 31.9 MCHC 33.1 RDW 14.5 Plt Count 238 MPV 7.8 Prelim Diff (Auto) Slide review pending Neut % (Auto) 90.1 H Lymph % (Auto) 3.6 L Walker % (Auto) 6.2 Eos % (Auto) 0.0 Baso % (Auto) 0.1 Neut # (Auto) 14.2 H Lymph # (Auto) 0.6 L Walker # (Auto) 1.0 H Eos # (Auto) 0.0 Baso # (Auto) 0.0 WBC Differential Manual diff final Seg Neuts % (Manual) 88 H Band Neuts % (Manual) 5 Lymphocytes % (Manual) 3 L Monocytes % (Manual) 3 Metamyelocytes % (Man) 1 Abs Neuts (Manual) 14.8 H Differential Comment . Platelet Estimate Normal Platelet Morphology Normal Hematology Comments PT 12.2 H INR 1.2 Sodium Potassium Chloride Carbon Dioxide Anion Gap BUN Creatinine Estimated GFR POC Glucose 142 H Random Glucose Calcium Phosphorus Magnesium 07/12/18 06:25 WBC RBC Hgb Hct MCV MCH MCHC RDW Plt Count MPV Prelim Diff (Auto) Neut % (Auto) Lymph % (Auto) Walker % (Auto) Eos % (Auto) Baso % (Auto) Neut # (Auto) Lymph # (Auto) Walker # (Auto) Eos # (Auto) Baso # (Auto) WBC Differential Seg Neuts % (Manual) Band Neuts % (Manual) Lymphocytes % (Manual) Monocytes % (Manual) Metamyelocytes % (Man) Abs Neuts (Manual) Differential Comment Platelet Estimate Platelet Morphology Hematology Comments PT INR Sodium 137 Potassium 2.9 L* Chloride 105 Carbon Dioxide 19.7 L Anion Gap 12 BUN 14 Creatinine 0.92 Estimated GFR 59 L POC Glucose Random Glucose 143 H Calcium 7.9 L Phosphorus 1.0 L Magnesium 2.0 Microbiology 07/08/18 20:00 Blood - Peripheral Aerobic Blood Culture - Preliminary No growth in 3 days 07/08/18 20:00 Blood - Peripheral Anaerobic Blood Culture - Preliminary No growth in 3 days 07/08/18 20:05 Blood - Peripheral Aerobic Blood Culture - Preliminary No growth in 3 days 07/08/18 20:05 Blood - Peripheral Anaerobic Blood Culture - Preliminary No growth in 3 days <Hudes,Jaquan - Last Filed: 07/12/18 10:14> Assessment and Plan - Plan - Sepsis/syncopal episode/ anemia/heme (+) stools- Patient has been having trouble moving her bowels, reports that she gave herself 2 rectal suppositories and took a lot of laxatives in order to move her bowels. Shortly after, patient had a syncopal episode before she can make it to the bathroom. States stools were all liquid at that time. Patient is on Eliquis 5 mg twice daily. hgb is dropping. No obvious bleeding reported. WBC elevated but trending down. Blood cx negative so far. LFTs and lipase wnl. CT done with no evidence of colitis or acute findings. Stools negative for C-diff. Colonoscopy was done 4 yrs ago by report - Anemia/heme (+) stools- hgb stabilized. no bleeding reported, pt is on Eliquis which could be the culprit - Sepsis- on Flagyl, WBC today is rising . Blood cx negative so far. Ct no evidence of colitis Stools negative for C-diff - Hypokalemia- K 2.9, per CCM - PMHx Afib s/p ablation ( on eliquis) , HTN and hypothyroidism Plan: - Clear liquid diet - EGD/colonoscopy to r/o Gi related etiology for sepsis possibly tomorrow Pending electrolyte correction (potassium and phosphorus) discussed with attending - Cont. to hold Eliquis, this was discussed with Dr. Frank - ID and cardiology on the case - Cont. Flagyl - Cont. bowel regimen - Monitor hh - Supportive care - Pt is seen by Dr. Bashir and myself and this note is written on his behalf. <Batsheva Connelly - Last Filed: 07/12/18 10:01> - Attending Attestation I have seen and examined the patient and reviewed the patients care with the BUSINESS OPERATIONS SPECIALIST. I agree with the above assessment and recommendations as documented above. Patient has hypokalemia and hypophosphatemia. Once these are corrected patient will be prescribed bowel preparation for upper endoscopy and colonoscopy tomorrow. If her electrolyte imbalance cannot be corrected today then colonoscopy and upper endoscopy will be delayed accordingly. <Jaquan Bashir - Last Filed: 07/12/18 10:14>
[2018-07-12 10:10] LABS: Lymphocytes 3 % (9-44); Metamyelocytes 1 % (0-1); Monocytes 3 % (0-8)
[2018-07-12 10:11] LABS: Platelet Estimate Normal (Normal); Platelet Morphology Normal (Normal)
[2018-07-12 13:01] LABS: Calcium 7.9 mg/dL (8.5-10.1); Carbon Dioxide 21.3 meq/L (21.0-32.0); Phosphorus 0.8 mg/dL (2.5-4.9); Potassium 3.1 meq/L (3.5-5.1)
[2018-07-12] MEDS: SODIUM CHLOR 0.9% IV.SIG ONE ×2 (13:02→13:45)
[2018-07-12] MEDS: SODIUM GLYCEROPHOSPHATE IV.SIG ONE ×2 (13:02→13:45)
[2018-07-12] MEDS ORDERED: PEG 3350/E-Lyte Soln 4000 ML Bottle PO ONE (16:00)
[2018-07-12 17:30] LABS: Calcium 7.8 mg/dL (8.5-10.1); Carbon Dioxide 19.3 meq/L (21.0-32.0); Potassium 3.5 meq/L (3.5-5.1)
[2018-07-12] MEDS ORDERED: Estradiol 0.05 MG/24 HR Patch T-DERMAL ONE (17:42)
[2018-07-12] MEDS: ALPRAZolam 0.25 MG Tablet PO PRN (21:03)
[2018-07-13] MEDS: Chlorhexidine Gluconate 2% 1 Pack (2 Cloths) TOPICAL SCH (03:48)
[2018-07-13] MEDS ORDERED: Chlorhexidine Gluconate 2% 1 Pack (2 Cloths) TOPICAL ONE (04:02)
[2018-07-13] MEDS ORDERED: Sodium Chlor 0.9% Inj 500 ML IV.SIG SCH (05:00)
[2018-07-13] MEDS: Levothyroxine 50 MCG Tablet PO SCH (06:37)
[2018-07-13 06:51] LABS: Hematocrit 31.2 % (35.0-46.0); Hemoglobin 11.1 gm/dL (11.6-15.3); Mean Corpuscular HGB Conc 35.6 % (32.0-36.0); Mean Corpuscular Hemoglobin 32.9 pg (27.0-34.0); Mean Corpuscular Volume 92.4 fL (80.0-100.0); Mean Platelet Volume 7.3 fL (7.0-11.0); Neut % (Auto) 84.6 % (16.0-70.0); Platelet Count 218 th/mm3 (150-450); Red Blood Count 3.37 mil/mm3 (4.00-5.30); Red Cell Distribution Width 14.4 % (11.6-17.2); White Blood Count 16.1 th/mm3 (4.0-11.0)
[2018-07-13 06:52] LABS: Baso % (Auto) 0.2 % (0.0-2.0); Eos % (Auto) 0.2 % (0.0-4.0); Lymph # (Auto) 0.9 th/mm3 (1.0-4.8); Lymph % (Auto) 5.4 % (9.0-44.0); Mono # (Auto) 1.5 th/mm3 (0.0-0.9); Mono % (Auto) 9.6 % (0.0-8.0); Neut # (Auto) 13.7 th/mm3 (1.8-7.7)
[2018-07-13 07:32] LABS: Alanine Aminotransferase 246 U/L (10-53); Albumin 2.8 g/dL (3.4-5.0); Alkaline Phosphatase 89 U/L (45-117); Anion Gap 9 meq/L (5-15); Aspartate Aminotransferase 73 U/L (15-37); Blood Urea Nitrogen 8 mg/dL (7-18); Calcium 7.6 mg/dL (8.5-10.1); Carbon Dioxide 23.7 meq/L (21.0-32.0); Chloride 104 meq/L (98-107); Glomerular Filtration Rate 87 mL/min (>89); Glucose,Random 118 mg/dL (74-106); Sodium 137 meq/L (136-145); Total Protein 5.7 g/dL (6.4-8.2)
[2018-07-13 07:54] LABS: Potassium 2.8 meq/L (3.5-5.1)
[2018-07-13] MEDS: Flecainide 100 MG Tablet PO SCH ×2 (08:56→20:50)
[2018-07-13] MEDS ORDERED: Potassium Chloride 25 MEQ Effervescent Tablet PO ONE (09:30)
[2018-07-13 10:20] LABS: Phosphorus 1.1 mg/dL (2.5-4.9)
--- NOTE | 2018-07-13 10:45 | P.PNFP ---
Subjective Interval history: Patient was seen at bedside this morning. Overnight patient had a short stent of atrial fibrillation but converted to normal sinus sinus rhythm on her own after a few minutes. Patient reports feeling overall terrible due to still being in the hospital as well as the bowel prep that she reported was miserable. Her current electrolyte levels were discussed with patient as well as the need for potassium supplementation. She also expressed being very nervous about the procedure, but was reassured that she will be given sedation and we will not feel anything. Upon leaving the room patient appeared reassured thanked me very much for my care. <Carmen MarquezSteve Feliciano - 07/13/18 11:38> Results - Labs Result diagrams: 07/13/18 06:21 07/13/18 18:10 <Oliver Wilson - 07/13/18 21:29> Abnormal lab results 07/13/18 07/13/18 07/13/18 Range/Units 06:21 06:21 06:21 WBC 16.1 H (4.0-11.0) th/mm3 RBC 3.37 L (4.00-5.30) mil/mm3 Hgb 11.1 L (11.6-15.3) gm/dL Hct 31.2 L (35.0-46.0) % Neut % (Auto) 84.6 H (16.0-70.0) % Lymph % (Auto) 5.4 L (9.0-44.0) % [place] % (Auto) 9.6 H (0.0-8.0) % Neut # (Auto) 13.7 H (1.8-7.7) th/mm3 Lymph # (Auto) 0.9 L (1.0-4.8) th/mm3 [place] # (Auto) 1.5 H (0.0-0.9) th/mm3 O2 Saturation (90-100) % ABG pCO2 (38-42) mmHg ABG pO2 (61-120) mmHG ABG HCO3 (22-26) mmol/L ABG Base Excess (-2-2) mmol/L Hemoglobin (12.0-16.0) G/DL Potassium 2.8 L* (3.5-5.1) meq/L Estimated GFR 87 L (>89) mL/min Random Glucose 118 H (74-106) mg/dL Calcium 7.6 L (8.5-10.1) mg/dL Phosphorus 0.9 L (2.5-4.9) mg/dL Total Bilirubin 1.5 H (0.2-1.0) mg/dL AST 73 H (15-37) U/L ALT 246 H (10-53) U/L Troponin I (0.02-0.05) ng/mL B-Natriuretic Peptide (0-100) pg/mL Total Protein 5.7 L (6.4-8.2) g/dL Albumin 2.8 L (3.4-5.0) g/dL 07/13/18 07/13/18 07/13/18 Range/Units 06:21 09:36 13:33 WBC (4.0-11.0) th/mm3 RBC (4.00-5.30) mil/mm3 Hgb (11.6-15.3) gm/dL Hct (35.0-46.0) % Neut % (Auto) (16.0-70.0) % Lymph % (Auto) (9.0-44.0) % [place] % (Auto) (0.0-8.0) % Neut # (Auto) (1.8-7.7) th/mm3 Lymph # (Auto) (1.0-4.8) th/mm3 [place] # (Auto) (0.0-0.9) th/mm3 O2 Saturation 87 L* (90-100) % ABG pCO2 32 L (38-42) mmHg ABG pO2 52 L* (61-120) mmHG ABG HCO3 20 L (22-26) mmol/L ABG Base Excess -3.5 L (-2-2) mmol/L Hemoglobin 11.0 L (12.0-16.0) G/DL Potassium 3.0 L (3.5-5.1) meq/L Estimated GFR (>89) mL/min Random Glucose (74-106) mg/dL Calcium (8.5-10.1) mg/dL Phosphorus 1.1 L (2.5-4.9) mg/dL Total Bilirubin (0.2-1.0) mg/dL AST (15-37) U/L ALT (10-53) U/L Troponin I (0.02-0.05) ng/mL B-Natriuretic Peptide 687 H (0-100) pg/mL Total Protein (6.4-8.2) g/dL Albumin (3.4-5.0) g/dL 07/13/18 Range/Units 18:10 WBC (4.0-11.0) th/mm3 RBC (4.00-5.30) mil/mm3 Hgb (11.6-15.3) gm/dL Hct (35.0-46.0) % Neut % (Auto) (16.0-70.0) % Lymph % (Auto) (9.0-44.0) % [place] % (Auto) (0.0-8.0) % Neut # (Auto) (1.8-7.7) th/mm3 Lymph # (Auto) (1.0-4.8) th/mm3 [place] # (Auto) (0.0-0.9) th/mm3 O2 Saturation (90-100) % ABG pCO2 (38-42) mmHg ABG pO2 (61-120) mmHG ABG HCO3 (22-26) mmol/L ABG Base Excess (-2-2) mmol/L Hemoglobin (12.0-16.0) G/DL Potassium (3.5-5.1) meq/L Estimated GFR (>89) mL/min Random Glucose (74-106) mg/dL Calcium (8.5-10.1) mg/dL Phosphorus 1.2 L (2.5-4.9) mg/dL Total Bilirubin (0.2-1.0) mg/dL AST (15-37) U/L ALT (10-53) U/L Troponin I 0.10 H (0.02-0.05) ng/mL B-Natriuretic Peptide (0-100) pg/mL Total Protein (6.4-8.2) g/dL Albumin (3.4-5.0) g/dL Short CBC 07/13/18 Range/Units 06:21 WBC 16.1 H (4.0-11.0) th/mm3 Hgb 11.1 L (11.6-15.3) gm/dL Hct 31.2 L (35.0-46.0) % Plt Count 218 (150-450) th/mm3 BMP 07/13/18 07/13/18 07/13/18 06:21 09:36 18:10 Sodium 137 Potassium 2.8 L* 3.0 L 3.6 Chloride 104 Carbon Dioxide 23.7 BUN 8 Creatinine 0.65 Calcium 7.6 L Cardiac Enzymes 07/13/18 07/13/18 Range/Units 18:10 18:10 Total Creatine Kinase 105 Cancelled (26-192) U/L Troponin I 0.10 H Cancelled (0.02-0.05) ng/mL Liver Function 07/13/18 Range/Units 06:21 Total Bilirubin 1.5 H (0.2-1.0) mg/dL AST 73 H (15-37) U/L ALT 246 H (10-53) U/L Alkaline Phosphatase 89 (45-117) U/L Albumin 2.8 L (3.4-5.0) g/dL <Oliver Wilson - 07/13/18 21:29> Abnormal lab results 07/12/18 07/12/18 07/12/18 Range/Units 11:59 12:00 16:54 WBC (4.0-11.0) th/mm3 RBC (4.00-5.30) mil/mm3 Hgb (11.6-15.3) gm/dL Hct (35.0-46.0) % Neut % (Auto) (16.0-70.0) % Lymph % (Auto) (9.0-44.0) % [place] % (Auto) (0.0-8.0) % Neut # (Auto) (1.8-7.7) th/mm3 Lymph # (Auto) (1.0-4.8) th/mm3 [place] # (Auto) (0.0-0.9) th/mm3 Potassium 3.1 L (3.5-5.1) meq/L Carbon Dioxide 19.3 L (21.0-32.0) meq/L Creatinine 1.03 H 1.01 H (0.50-1.00) mg/dL Estimated GFR 51 L 53 L (>89) mL/min POC Glucose 160 H (68-110) mg/dl Random Glucose 174 H 156 H (74-106) mg/dL Calcium 7.9 L 7.8 L (8.5-10.1) mg/dL Phosphorus 0.8 L (2.5-4.9) mg/dL Total Bilirubin (0.2-1.0) mg/dL AST (15-37) U/L ALT (10-53) U/L Total Protein (6.4-8.2) g/dL Albumin (3.4-5.0) g/dL 07/12/18 07/13/18 07/13/18 Range/Units 17:32 06:21 06:21 WBC 16.1 H (4.0-11.0) th/mm3 RBC 3.37 L (4.00-5.30) mil/mm3 Hgb 11.1 L (11.6-15.3) gm/dL Hct 31.2 L (35.0-46.0) % Neut % (Auto) 84.6 H (16.0-70.0) % Lymph % (Auto) 5.4 L (9.0-44.0) % [place] % (Auto) 9.6 H (0.0-8.0) % Neut # (Auto) 13.7 H (1.8-7.7) th/mm3 Lymph # (Auto) 0.9 L (1.0-4.8) th/mm3 [place] # (Auto) 1.5 H (0.0-0.9) th/mm3 Potassium 2.8 L* (3.5-5.1) meq/L Carbon Dioxide (21.0-32.0) meq/L Creatinine (0.50-1.00) mg/dL Estimated GFR 87 L (>89) mL/min POC Glucose 142 H (68-110) mg/dl Random Glucose 118 H (74-106) mg/dL Calcium 7.6 L (8.5-10.1) mg/dL Phosphorus (2.5-4.9) mg/dL Total Bilirubin 1.5 H (0.2-1.0) mg/dL AST 73 H (15-37) U/L ALT 246 H (10-53) U/L Total Protein 5.7 L (6.4-8.2) g/dL Albumin 2.8 L (3.4-5.0) g/dL 07/13/18 07/13/18 Range/Units 06:21 09:36 WBC (4.0-11.0) th/mm3 RBC (4.00-5.30) mil/mm3 Hgb (11.6-15.3) gm/dL Hct (35.0-46.0) % Neut % (Auto) (16.0-70.0) % Lymph % (Auto) (9.0-44.0) % [place] % (Auto) (0.0-8.0) % Neut # (Auto) (1.8-7.7) th/mm3 Lymph # (Auto) (1.0-4.8) th/mm3 [place] # (Auto) (0.0-0.9) th/mm3 Potassium 3.0 L (3.5-5.1) meq/L Carbon Dioxide (21.0-32.0) meq/L Creatinine (0.50-1.00) mg/dL Estimated GFR (>89) mL/min POC Glucose (68-110) mg/dl Random Glucose (74-106) mg/dL Calcium (8.5-10.1) mg/dL Phosphorus 0.9 L 1.1 L (2.5-4.9) mg/dL Total Bilirubin (0.2-1.0) mg/dL AST (15-37) U/L ALT (10-53) U/L Total Protein (6.4-8.2) g/dL Albumin (3.4-5.0) g/dL Short CBC 07/13/18 Range/Units 06:21 WBC 16.1 H (4.0-11.0) th/mm3 Hgb 11.1 L (11.6-15.3) gm/dL Hct 31.2 L (35.0-46.0) % Plt Count 218 (150-450) th/mm3 BMP 07/12/18 07/12/18 07/13/18 12:00 16:54 06:21 Sodium 137 137 137 Potassium 3.1 L 3.5 2.8 L* Chloride 105 106 104 Carbon Dioxide 21.3 19.3 L 23.7 BUN 13 13 8 Creatinine 1.03 H 1.01 H 0.65 Calcium 7.9 L 7.8 L 7.6 L 07/13/18 09:36 Sodium Potassium 3.0 L Chloride Carbon Dioxide BUN Creatinine Calcium Liver Function 07/13/18 Range/Units 06:21 Total Bilirubin 1.5 H (0.2-1.0) mg/dL AST 73 H (15-37) U/L ALT 246 H (10-53) U/L Alkaline Phosphatase 89 (45-117) U/L Albumin 2.8 L (3.4-5.0) g/dL <Steve Ruiz - 07/13/18 10:45> - Imaging Impressions Chest X-Ray 07/13/18 00:00 CONCLUSION: 1. Bilateral perihilar infiltrates consistent with moderate to severe pulmonary edema versus pneumonia. Clinical correlation is recommended. 2. Cardiomegaly. 3. Small bilateral pleural effusions. 4. Right internal jugular central line has its tip in superior vena cava. There is no pneumothorax. <Oliver Wlison - 07/13/18 21:29> Physical Exam Vital signs: Vital Signs 07/13/18 00:00 07/13/18 04:00 07/13/18 04:20 Temperature 98.4 F 98.7 F Pulse Rate 115 H 107 H 106 H Respiratory Rate 17 18 Blood Pressure 140/77 152/74 H Pulse Oximetry 98 97 07/13/18 04:29 07/13/18 08:00 07/13/18 09:34 Temperature 98.4 F Pulse Rate 97 H 82 Respiratory Rate 18 Blood Pressure 138/66 142/72 H Pulse Oximetry 91 L 92 L 07/13/18 11:30 07/13/18 12:00 07/13/18 13:30 Temperature 98.8 F 97.6 F Pulse Rate 85 87 82 Respiratory Rate 18 20 Blood Pressure 138/76 129/60 Pulse Oximetry 93 L 88 L 07/13/18 13:35 07/13/18 13:45 07/13/18 14:00 Temperature Pulse Rate 87 86 Respiratory Rate 16 18 Blood Pressure 128/60 132/63 Pulse Oximetry 91 L 92 L 93 L 07/13/18 14:15 07/13/18 14:30 07/13/18 14:45 Temperature Pulse Rate 85 87 86 Respiratory Rate 18 18 17 Blood Pressure 130/64 128/65 131/66 Pulse Oximetry 94 L 94 L 93 L 07/13/18 15:00 07/13/18 15:15 07/13/18 15:30 Temperature Pulse Rate 85 85 84 Respiratory Rate 17 16 16 Blood Pressure 131/62 132/64 139/67 Pulse Oximetry 96 94 L 95 12/26/18 15:45 07/13/18 15:55 07/13/18 16:00 Temperature 97.8 F Pulse Rate 87 90 Respiratory Rate 17 Blood Pressure 142/67 H Pulse Oximetry 95 95 97 07/13/18 16:08 07/13/18 16:17 07/13/18 16:38 Temperature 99.0 F Pulse Rate 86 83 Respiratory Rate 28 H 26 H Blood Pressure 157/67 H 157/69 H 155/72 H Pulse Oximetry 93 L 93 L 99 07/13/18 16:53 07/13/18 17:00 07/13/18 17:08 Temperature Pulse Rate 84 84 85 Respiratory Rate 28 H 27 H 29 H Blood Pressure 152/70 H 155/72 H Pulse Oximetry 99 99 98 07/13/18 17:23 07/13/18 17:38 07/13/18 17:53 Temperature Pulse Rate 85 87 89 Respiratory Rate 28 H 26 H 28 H Blood Pressure 148/69 H 152/72 H 150/67 H Pulse Oximetry 100 99 97 07/13/18 18:00 07/13/18 19:00 07/13/18 20:00 Temperature 100.4 F H Pulse Rate 88 92 H 108 H Respiratory Rate 31 H 26 H 26 H Blood Pressure 154/72 H 155/67 H 130/68 Pulse Oximetry 98 93 L 99 07/13/18 21:00 Temperature Pulse Rate 83 Respiratory Rate 26 H Blood Pressure 138/65 Pulse Oximetry 99 Intake & Output 07/13/18 07/13/18 07/14/18 06:59 18:59 06:59 Intake Total 920 / 920 700 / 700 Output Total 600 / 600 Balance 920 / 920 100 / 100 Intake: IV 200 / 200 300 / 300 KCl 20 mEq Premix Inj 20 meq In 200 / 200 100 ml @ 50 mls/hr IV.SIG Q2H ERIK Rx#:[id number] Flagyl 500 MG Inj 100 ML @ 100 200 / 200 100 / 100 mls/hr IV.SIG Q8H [facility] Rx#: [id number] Oral 720 / 720 Anesthesia Amount 400 / 400 Output: Urine Amount (Catheter) 600 / 600 Indwelling Urethral Catheter 600 / 600 Other: # Voids 5 Date of Last Bowel Movement 07/13/18 07/13/18 07/13/18 # Incontinent Bowel Movements 6 <Oliver Wilson 07/13/18 21:29> Vital Signs 07/12/18 11:42 07/12/18 12:00 07/12/18 16:00 Temperature 98.3 F 98.2 F Pulse Rate 75 80 72 Respiratory Rate 18 18 18 Blood Pressure 139/64 141/59 H Pulse Oximetry 96 93 L 07/12/18 16:13 07/12/18 19:41 07/12/18 20:00 Temperature Pulse Rate 73 81 89 Respiratory Rate 20 18 Blood Pressure 160/68 H Pulse Oximetry 92 L 07/13/18 00:00 07/13/18 04:00 07/13/18 04:20 Temperature 98.4 F 98.7 F Pulse Rate 115 H 107 H 106 H Respiratory Rate 17 18 Blood Pressure 140/77 152/74 H Pulse Oximetry 98 97 07/13/18 04:29 07/13/18 08:00 07/13/18 09:34 Temperature 98.4 F Pulse Rate 97 H 87 Respiratory Rate 18 Blood Pressure 138/66 142/72 H Pulse Oximetry 91 L 92 L Intake & Output 07/12/18 07/13/18 07/13/18 18:59 06:59 18:59 Intake Total 830 / 830 920 / 920 Output Total 300 / 300 Balance 530 / 530 920 / 920 Intake: IV 270 / 270 200 / 200 Glycophos Inj 20 MMOL In NS Inj 170 / 170 150 ML @ 40 mls/hr IV.SIG ONCE ONE Rx#:[id number] Flagyl 500 MG Inj 100 ML @ 100 100 / 100 200 / 200 mls/hr IV.SIG Q8H [facility] Rx#: [id number] Oral 560 / 560 720 / 720 Output: Urine 300 / 300 Other: # Voids 5 Date of Last Bowel Movement 07/11/18 07/13/18 07/13/18 # Incontinent Bowel Movements 4 6 <Carmen MarquezSteve Feliciano - 07/13/18 10:45> Narrative: GENERAL: Elderly appearing female, lying in bed in no obvious distress. SKIN: Warm and dry. Multiple ecchymoses over bilateral shins and arms. HEAD: Normocephalic. Small contusion on right parietal scalp without laceration , bleeding, or swelling. CARDIOVASCULAR: regular rhythm without murmurs, gallops, or rubs. RESPIRATORY: Breath sounds equal bilaterally. No accessory muscle use. Minimal wheezing in upper lobes bilaterally. GASTROINTESTINAL: Abdomen soft and nontender in any quadrant. Normal bowel sounds appreciated. Nondistended. MUSCULOSKELETAL: No cyanosis, or edema. Moves all extremities spontaneously. <Steve Ruiz - 07/13/18 11:38> Assessment and Plan - Assessment (1) Electrolyte abnormality Code(s): E87.8 - Other disorders of electrolyte and fluid balance, not elsewhere classified Status: Acute (2) Sepsis associated hypotension Code(s): A41.9 - Sepsis, unspecified organism; I95.9 - Hypotension, unspecified Status: Acute (3) Afib Code(s): I48.91 - Unspecified atrial fibrillation Status: Acute (4) Anxiety Code(s): F41.9 - Anxiety disorder, unspecified Status: Acute (5) Hypotension Code(s): I95.9 - Hypotension, unspecified Status: Resolved (6) Symptomatic bradycardia Code(s): R00.1 - Bradycardia, unspecified Status: Acute (7) Hypothyroid Code(s): E03.9 - Hypothyroidism, unspecified Status: Acute (8) Wheezing Code(s): R06.2 - Wheezing Status: Acute <Oliver Wilson - 07/13/18 21:29> (1) Electrolyte abnormality Code(s): E87.8 - Other disorders of electrolyte and fluid balance, not elsewhere classified Status: Acute Plan: Phosphate level of 1.1, K+ 2.8 status post total 75 mEq of potassium yesterday, potassium at 1654 on 11/10 was 3.5. This morning. Start IV sodium glycerophosphate 30mmol, 280 mls at 40mls/hr NS+Kcl 20 meq at 120ml/hr Kcl premix IV 20meq X 4, at 10meq/hr Check BMP at 4pm (2) Sepsis associated hypotension Code(s): A41.9 - Sepsis, unspecified organism; I95.9 - Hypotension, unspecified Status: Acute Plan: Resolved Sepsis associated with possible colitis, hypotension resolved, and bradycardia resolved. -Critical care consulted and signed off 07/11 -Blood cultures from 07/08-no growth to date -Leukocytosis up slightly but stable -Currently normotensive Plan: - S/p bowel regimen for colonoscopy - EGD/colonoscopy to r/o Gi related etiology for sepsis today pending electrolyte normalization - Eliquis held - Hgb grossly wnl, daily CBC -On Flagyl 500 mg IV every 8 hours (07/09 - present) -S/p Cefepime 2 g IV every 8 hours (07/09 - 07/10) -2D echo shows no abnormalities: mod-severe mitral regurg, mod tricuspid regurg , EF 55-60% -Xanax for anxiety (3) Afib Code(s): I48.91 - Unspecified atrial fibrillation Status: Acute Plan: Currently normal sinus rhythm after one episode of A. fib overnight that self resolved within minutes. -Currently holding amiodarone, amlodipine, and metoprolol -Continue to monitor on telemetry -Continue to follow cardiology recommendations: -flecainide 100mg BID (4) Anxiety Code(s): F41.9 - Anxiety disorder, unspecified Status: Acute Plan: May resume Xanax 0.25 mg p.o. (5) Hypotension Code(s): I95.9 - Hypotension, unspecified Status: Resolved Plan: Resolved. (6) Symptomatic bradycardia Code(s): R00.1 - Bradycardia, unspecified Status: Acute Plan: Resolved (7) Hypothyroid Code(s): E03.9 - Hypothyroidism, unspecified Status: Acute Plan: Continue levothyroxine 50 mcg daily (8) Wheezing Code(s): R06.2 - Wheezing Status: Acute Plan: Improved Give albuterol TID PRN, space out to avoid tachycardia <Carmen Steve Marquez Feliciano - 07/13/18 11:28> - Assessment and Plan Hospital course: -Status post normal saline bolus 1 L x4 -Stool C. difficile screen negative -Leukocytosis improving; 9.4 on admission and then trended: 24.9, 17.4, 14.7 -Lactic acid trend 1.4 -> 2.3 -> 1.9 -CRP elevated at 2.44 -TSH within normal limits but free T4 elevated at 1.76, free T3 decreased at 0.86 -Thoracic aorta CT: No evidence for aortic aneurysm or dissection, diffuse colonic wall thickening most notably in the transverse colon. Findings are most concerning for colitis, likely infectious or inflammatory in etiology. The mesenteric arteries are patent which makes ischemic etiology unlikely. Moderate severe sigmoid diverticulosis. -Head CT: No acute intracranial abnormality. Atrophy and chronic white matter changes -Abdominal CT without contrast: Unremarkable study without evidence of bowel obstruction or free fluid or free air of any significance. Gallbladder is well distended. Kidneys are functioning. Degenerative arthritis lower lumbar spine. Bibasilar consolidation, likely atelectasis. Sigmoid diverticulosis. <Morales Steve Marquez - 07/13/18 10:45> - Attending Attestation Pt. examined independently from resident physicians today on medicine rounds I have read the above note and agree with the assessment/plan as discussed with me I was involved in all medical decision making for this patient Pt. developed sudden shortness of breath following procedure and CXR shows perihilar congestion - transferred to [facility] for closer monitoring and oxygenation via venti mask vs. BiPap - IV abx added with cefepime - continue flagyl - Blood cultures drawn - Diuresis with chucky Wilson MD <Oliver Wilson - 07/13/18 21:29>
[2018-07-13] MEDS: Potassium Chlor 20 mEq Premix 20 MEQ/100 ML PIGGYBACK IV.SIG SCH ×4 (10:47→23:01)
[2018-07-13] MEDS: ALPRAZolam 0.25 MG Tablet PO PRN (10:47)
[2018-07-13] MEDS ORDERED: Sodium Glycerophosphate Inj 30 MMOL in Sodium Chlor 0.9% Inj 250 ML IV.SIG ONE (11:00)
[2018-07-13] MEDS ORDERED: Sodium Phosphate Inj 30 MMOL in Sodium Chlor 0.9% Inj 250 ML IV.SIG ONE (12:00)
--- NOTE | 2018-07-13 12:45 | GIPROC ---
[facility] [address] [facility], [id number] EGD PROCEDURE REPORT EXAM DATE: 07/13/2018 PATIENT NAME: Rachna Ferreira MR #: [id number] BIRTHDATE: 1935 ATTENDING: Solomon Pascal MD ORDER #: [id number] SPORTS DOCTOR: Kassandra Aleman and Tomasa Chang STATUS: inpatient INDICATIONS: The patient is a 83 yr old female here for an EGD due to anemia PROCEDURE PERFORMED: EGD, diagnostic MEDICATIONS: Per Anesthesia and None. TOPICAL ANESTHETIC: none CONSENT: The patient understands the risks and benefits of the procedure and understands that these risks include, but are not limited to: sedation, allergic reaction, infection, perforation and/or bleeding. Alternative means of evaluation and treatment include, among others: physical exam, x-rays, and/or surgical intervention. The patient elects to proceed with this endoscopic procedure. medical equipment was checked for proper function. Hand hygiene and appropriate measures for infection prevention was taken. After the risks, benefits and alternatives of the procedure were thoroughly explained, Informed consent was verified, confirmed and timeout was successfully executed by the treatment team. The patient was anesthetized with topical anesthesia and the EC-[id number] (Pedi C) endoscope was introduced through the mouth and advanced to the second portion of the duodenum. Retroflexion was performed and was normal The gastroscope was then slowly withdrawn and removed. ESOPHAGUS: The mucosa of the esophagus appeared normal. A large hiatal hernia was noted. STOMACH: The mucosa of the stomach appeared normal. DUODENUM: The duodenal mucosa appeared normal in the duodenal bulb and 2nd part duodenum. ADVERSE EVENTS: There were no complications. IMPRESSIONS: 1. The esophagus appeared normal 2. Large hiatal hernia 3. The mucosa of the stomach appeared normal 4. Normal duodenal mucosa in the duodenal bulb and 2nd part duodenum RECOMMENDATIONS: No treatment PATIENT CONDITION: stable DISPOSITION: Observation REPEAT EXAM: NONE Solomon Pascal MD eSigned: Solomon Pascal MD 07/13/2018 12:44 PM cc:
--- NOTE | 2018-07-13 12:49 | GIPROC ---
[facility] [address] [facility], [address] COLONOSCOPY PROCEDURE REPORT EXAM DATE: 07/13/2018 PATIENT NAME: Rachna Ferreira MR #: [id number] BIRTHDATE: 1935 ENDOSCOPIST: Solomon Pascal MD ORDER #: [id number] EXERCISER: Kassandra Aleman and Tomasa Chang STATUS: inpatient INDICATIONS: The patient is a 83 yr old female here for a colonoscopy due to anemia, non-specific PROCEDURE PERFORMED: Colonoscopy, diagnostic MEDICATIONS: Per Anesthesia and None. PREP QUALITY: poor PREP TYPE:GoLytely ESTIMATED BLOOD LOSS: None CONSENT: The patient understands the risks and benefits of the procedure and understands that these risks include, but are not limited to: sedation, allergic reaction, infection, perforation and/or bleeding. Alternative means of evaluation and treatment include, among others: physical exam, x-rays, and/or surgical intervention. The patient elects to proceed with this endoscopic procedure. medical equipment was checked for proper function. Hand hygiene and appropriate measures for infection prevention was taken. After the risks, benefits and alternatives of the procedure were thoroughly explained, Informed consent was verified, confirmed and timeout was successfully executed by the treatment team. A digital exam revealed no abnormalities of the rectum The Pentax [id number] endoscope was introduced through the anus and advanced to the cecum, which was identified by both the appendix and ileocecal valve. The instrument was then slowly withdrawn as the colon was fully examined. COLON FINDINGS: Large internal hemorrhoids were found. There was severe diverticulosis noted in the sigmoid colon and descending colon with associated angulation, tortuosity, purulent discharge and inflammatory changes. No bleeding was noted from the diverticulosis. Retroflexed views revealed no abnormalities The scope was then completely withdrawn from the patient and the procedure terminated. PROCEDURE WITHDRAWAL TIME:10minutes ADVERSE EVENTS: There were no complications. IMPRESSIONS: 1. Large internal hemorrhoids 2. There was severe diverticulosis noted in the sigmoid colon and descending colon 3. Poor bowel prep. limited the exam, no large masses or polyps seen. RECOMMENDATIONS: 1. No seeds, nuts and popcorn in diet 2. High fiber diet 3. Continue surveillance RECALL: Return 1 year Colonoscopy Solomon Pascal MD eSigned: Solomon Pascal MD 07/13/2018 12:48 PM cc: PATIENT NAME: Rachna Ferreira MR#: [id number]
[2018-07-13 13:43] LABS: ABG Base Excess -3.5 mmol/L (-2-2); ABG PCO2 32 mmHg (38-42); ABG PO2 52 mmHG (61-120)
--- NOTE | 2018-07-13 14:06 | XR ---
EXAM DATE: 07/13/2018 2:01 PM EST AGE/SEX: 83 years / Female INDICATIONS: Central line placement. CLINICAL DATA: This is the patient's subsequent encounter. Patient reports that signs and symptoms h ave been present for 1 day and indicates a pain score of Nonresponsive. MEDICAL/SURGICAL HISTORY: Non-responsive. Non-responsive. COMPARISON: [facility], CHEST 1V SINGLE AP, 07/04/2018. . FINDINGS: Bilateral perihilar infiltrates are noted consistent with moderate to severe pulmonary edema versus p neumonia. Clinical correlation is recommended. The heart is enlarged. Small bilateral pleural effusio ns are noted. Right internal jugular central line has its tip in the superior vena cava. There is no pneumothorax. CONCLUSION: 1. Bilateral perihilar infiltrates consistent with moderate to severe pulmonary edema versus pneumon ia. Clinical correlation is recommended. 2. Cardiomegaly. 3. Small bilateral pleural effusions. 4. Right internal jugular central line has its tip in superior vena cava. There is no pneumothorax. Electronically signed by: Oracio Addison MD Board Certified Radiologist 07/13/2018 2:04 PM EST
--- NOTE | 2018-07-13 16:01 | P.PNCC ---
Subjective Subjective Remarks/Hospital Course: 07/10: Afebrile. Patient awake and alert. Overnight heart rate range 48-60's. Flecainide dose was held last p.m. and review of the MAR. Today the patient was noted to be sustaining a MAP 60-61, patient received 250 cc 5% albumin and remained normotensive. Patient tolerating clear liquid diet. 07/11: Patient hemodynamically stable heart rate 50s-70s. Patient continues on flecainide. She was noted to have a positive stool for occult blood yesterday afternoon GI was consulted per plans for panendoscopy in the near future peer Eliquis was placed on hold. The patient was noted to have a low potassium level this a.m. 20 mEq IV was provided along with additional scheduled dosing of p.o. potassium. 07/13: The patient developed hypoxemic respiratory failure today and is being transferred to the intensive care unit for a higher level of care. Results of the endoscopies presently not available, but will review. Chest x-ray looks like pulmonary edema with bilateral hilar congestion and prominent pulmonary veins. Objective Vital Signs / I&O: Vital Signs 07/12/18 16:00 07/12/18 16:13 07/12/18 19:41 Temperature 98.2 F Pulse Rate 72 73 81 Respiratory Rate 18 20 18 Blood Pressure 141/59 H Pulse Oximetry 93 L 92 L 07/12/18 20:00 07/13/18 00:00 07/13/18 04:00 Temperature 98.4 F 98.7 F Pulse Rate 89 115 H 107 H Respiratory Rate 17 18 Blood Pressure 160/68 H 140/77 152/74 H Pulse Oximetry 98 97 07/13/18 04:20 07/13/18 04:29 07/13/18 08:00 Temperature 98.4 F Pulse Rate 106 H 97 H 82 Respiratory Rate 18 Blood Pressure 138/66 142/72 H Pulse Oximetry 91 L 07/13/18 09:34 07/13/18 11:30 07/13/18 12:00 Temperature 98.8 F Pulse Rate 85 87 Respiratory Rate 18 Blood Pressure 138/76 Pulse Oximetry 92 L 93 L 07/13/18 13:30 Temperature 97.6 F Pulse Rate 82 Respiratory Rate 20 Blood Pressure 129/60 Pulse Oximetry 88 L Intake & Output 07/12/18 07/13/18 07/13/18 18:59 06:59 18:59 Intake Total 830 / 830 920 / 920 500 / 500 Output Total 300 / 300 Balance 530 / 530 920 / 920 500 / 500 Intake: IV 270 / 270 200 / 200 100 / 100 KCl 20 mEq Premix Inj 20 meq In 100 / 100 100 ml @ 50 mls/hr IV.SIG Q2H ERIK Rx#:[id number] Glycophos Inj 20 MMOL In NS Inj 170 / 170 150 ML @ 40 mls/hr IV.SIG ONCE ONE Rx#:[id number] Flagyl 500 MG Inj 100 ML @ 100 100 / 100 200 / 200 mls/hr IV.SIG Q8H ERIK Rx#: [id number] Oral 560 / 560 720 / 720 Anesthesia Amount 400 / 400 Output: Urine 300 / 300 Other: # Voids 5 Date of Last Bowel Movement 07/11/18 07/13/18 07/13/18 # Incontinent Bowel Movements 4 6 Result Diagrams: 07/13/18 06:21 07/13/18 09:36 Objective Remarks: GENERAL: Chronically ill-appearing elderly female SKIN: Warm and dry. Large areas of bruising bilateral arms HEAD: Atraumatic. Normocephalic. EYES: Pupils equal and round. No scleral icterus. No injection or drainage. ENT: No nasal bleeding or discharge. Mucous membranes pink and moist. NECK: Trachea midline. Airway widely patent CARDIOVASCULAR: Normal rate, regular rhythm. RESPIRATORY: Accessory muscle use is present, labored breathing. Light wheezes and dependent crackles. GASTROINTESTINAL: Abdomen soft, non-tender, nondistended. No guarding. Bowel sounds are present MUSCULOSKELETAL: Extremities without clubbing, cyanosis, or edema. Small multiple areas of ecchymotic bruising on forearms, no obvious deformities. NEUROLOGICAL: Awake and alert. RASS 0. No gross focal/sensory deficits. Follows commands in all 4 extremities. Assessment and Plan - Assessment and Plan Plan: Active problems: Severe sepsis Hypotension-resolved acute bradycardia possible amiodarone toxicity hypothermia colitis, unclear etiology acute kidney injury GI bleed Plan Nonrebreathing mask for now, consider BiPAP noninvasive ventilation continue flagyl cefepime iv F/U blood cultures c. diff PCR negative may require vasopressors to maintain end-organ perfusion 2d echo sepsis source likely colitis, unless infectious etiology ruled out. strict i/o's daily bmp, cbc. Gastroenterology service is following and performed endoscopy today Review arrhythmia management with cardiology service Overall impression: Physically and radiographically this appears to be flash pulmonary edema. Heart rate control is acceptable and hopefully she will respond to diuretics.
[2018-07-13] MEDS ORDERED: Potassium Phosphate Inj 15 MMOL in Sodium Chlor 0.9% Inj 150 ML IV.SIG ONE (18:00)
[2018-07-13 19:02] LABS: Potassium 3.6 meq/L (3.5-5.1)
[2018-07-13 19:04] LABS: Phosphorus 1.2 mg/dL (2.5-4.9)
--- NOTE | 2018-07-13 19:38 | P.PNCA ---
Subjective Interval history: EGD/Cscope done today Afterwards difficult to oxygenate CXR showing pulmonary edema No chest pain, just SOB Medications and Allergies Active Medications: Active Medications Acetaminophen (Tylenol) 650 mg PO Q4H PRN PRN Reason: Temp > 100.4 Albuterol (Albuterol Neb (Prn)) 2.5 mg NEB ONCE PRN PRN Reason: SHORTNESS OF BREATH Last Admin: 07/12/18 16:10 Dose: 2.5 mg Albuterol (Duoneb Neb (Keith)) 1 ampul NEB Q4HR NEB [facility] Alprazolam (Xanax) 0.25 mg PO Q12H PRN PRN Reason: ANXIETY Last Admin: 07/13/18 10:47 Dose: 0.25 mg Apixaban (Eliquis) 5 mg PO BID [facility] Last Admin: 07/11/18 08:04 Dose: 5 mg Chlorhexidine Gluconate (Chlorhexidine 2% Cloth) 3 pack TOPICAL DAILY@0400 KEITH Stop: 07/14/18 03:59 Last Admin: 07/13/18 03:48 Dose: Not Given Chlorhexidine Gluconate (Chlorhexidine 2% Cloth) 3 pack TOPICAL DAILY@0400 PRN PRN Reason: Extra cloth needed Stop: 07/14/18 03:59 Flecainide Acetate (Tambocor) 100 mg PO BID [facility] Last Admin: 07/13/18 08:56 Dose: 100 mg Hydromorphone HCl (Dilaudid Pf Inj) 0.5 mg IV.PUSH ONCE PRN PRN Reason: ABDOMINAL PAIN Last Admin: 07/09/18 00:54 Dose: 0.5 mg Metronidazole/Sodium Chloride (Flagyl 500 Mg Inj) 100 mls @ 100 mls/hr IV.SIG Q8H [facility] Last Infusion: 07/13/18 18:17 Dose: Infused Lactated Ringer's (Lr 1000 Ml Inj) 1,000 mls @ 30 mls/hr IV.SIG .Q24H [facility] Sodium Chloride (Ns Inj) 500 mls @ 30 mls/hr IV.SIG .Q10H [facility] Potassium Phosphate 15 mmol/ (Sodium Chloride) 155 mls @ 38.75 mls/hr IV.SIG ONCE ONE Stop: 07/13/18 21:59 Last Admin: 07/13/18 17:48 Dose: 38.75 mls/hr Levothyroxine Sodium (Synthroid) 50 mcg PO DAILY@0600 [facility] Last Admin: 07/13/18 06:37 Dose: 50 mcg Miscellaneous Information ([facility] Nursing Information) 0 each OTHER UNSCH PRN PRN Reason: SEE LABEL COMMENTS Stop: 07/14/18 13:29 Ondansetron HCl (Zofran Inj) 4 mg IV.PUSH Q6H PRN PRN Reason: NAUSEA OR VOMITING Last Admin: 07/12/18 21:03 Dose: 4 mg Patch Removal (Remove Old Patch) 1 each T-DERMAL Q7D [facility] Last Admin: 07/12/18 17:38 Dose: 1 each Potassium Chloride (K-Dur) 20 meq PO DAILY [facility] Last Admin: 07/12/18 09:29 Dose: 20 meq Sodium Chloride (Ns Flush) 2 ml IV.FLUSH BID [facility] Last Admin: 07/13/18 09:00 Dose: 2 ml Sodium Chloride (Ns Flush) 2 ml IV.FLUSH PRN PRN PRN Reason: FLUSH AFTER USING IV ACCESS Allergies Allergy/AdvReac Type Severity Reaction Status Date / Time cefaclor Allergy Severe RASH Verified 07/04/18 09:33 paroxetine Allergy Severe Rash Verified 07/04/18 09:33 Sulfa (Sulfonamide Allergy Severe RASH Verified 07/04/18 09:33 Antibiotics) ciprofloxacin Allergy Unknown GI UPSET Verified 07/04/18 09:33 clonidine Allergy Unknown SKIN Verified 07/04/18 09:33 IRRITATION latex bandages AdvReac Mild SKIN Uncoded 07/02/18 10:47 REDNESS, RASH Home Medications Medication Instructions Recorded Confirmed Type alprazolam 0.25 mg PO BID PRN 05/18/18 07/08/18 History amiodarone 200 mg PO DAILY 05/18/18 07/08/18 History apixaban [Eliquis] 5 mg PO BID 05/18/18 07/08/18 History estradiol 0.5 mg PO WEEKLY 05/18/18 07/08/18 History levothyroxine 50 mcg PO DAILY 05/18/18 07/08/18 History potassium chloride 20 meq PO DAILY 05/18/18 07/08/18 History Physical Exam Vital signs: Vital Signs 07/12/18 19:41 07/12/18 20:00 07/13/18 00:00 Temperature 98.4 F Pulse Rate 81 89 115 H Respiratory Rate 18 17 Blood Pressure 160/68 H 140/77 Pulse Oximetry 92 L 98 07/13/18 04:00 07/13/18 04:20 07/13/18 04:29 Temperature 98.7 F Pulse Rate 107 H 106 H 97 H Respiratory Rate 18 Blood Pressure 152/74 H 138/66 Pulse Oximetry 97 07/13/18 08:00 07/13/18 09:34 07/13/18 11:30 Temperature 98.4 F 98.8 F Pulse Rate 82 85 Respiratory Rate 18 18 Blood Pressure 142/72 H 138/76 Pulse Oximetry 91 L 92 L 93 L 07/13/18 12:00 07/13/18 13:30 07/13/18 13:35 Temperature 97.6 F Pulse Rate 87 82 Respiratory Rate 20 Blood Pressure 129/60 Pulse Oximetry 88 L 91 L 07/13/18 13:45 07/13/18 14:00 07/13/18 14:15 Temperature Pulse Rate 87 86 85 Respiratory Rate 16 18 18 Blood Pressure 128/60 132/63 130/64 Pulse Oximetry 92 L 93 L 94 L 07/13/18 14:30 07/13/18 14:45 07/13/18 15:00 Temperature Pulse Rate 87 86 85 Respiratory Rate 18 17 17 Blood Pressure 128/65 131/66 131/62 Pulse Oximetry 94 L 93 L 96 07/13/18 15:15 07/13/18 15:30 07/13/18 15:45 Temperature 97.8 F Pulse Rate 85 84 87 Respiratory Rate 16 16 17 Blood Pressure 132/64 139/67 142/67 H Pulse Oximetry 94 L 95 95 07/13/18 15:55 07/13/18 16:00 07/13/18 16:08 Temperature 99.0 F Pulse Rate 90 Respiratory Rate Blood Pressure 157/67 H Pulse Oximetry 95 97 93 L 07/13/18 16:17 07/13/18 16:38 07/13/18 16:53 Temperature Pulse Rate 86 83 84 Respiratory Rate 28 H 26 H 28 H Blood Pressure 157/69 H 155/72 H 152/70 H Pulse Oximetry 93 L 99 99 07/13/18 17:00 07/13/18 17:08 07/13/18 17:23 Temperature Pulse Rate 84 85 85 Respiratory Rate 27 H 29 H 28 H Blood Pressure 155/72 H 148/69 H Pulse Oximetry 99 98 100 07/13/18 17:38 07/13/18 17:53 07/13/18 18:00 Temperature Pulse Rate 87 89 88 Respiratory Rate 26 H 28 H 31 H Blood Pressure 152/72 H 150/67 H 154/72 H Pulse Oximetry 99 97 98 Intake & Output 07/13/18 07/13/18 07/14/18 06:59 18:59 06:59 Intake Total 920 / 920 700 / 700 Output Total 600 / 600 Balance 920 / 920 100 / 100 Intake: IV 200 / 200 300 / 300 KCl 20 mEq Premix Inj 20 meq In 200 / 200 100 ml @ 50 mls/hr IV.SIG Q2H KEITH Rx#:[id number] Flagyl 500 MG Inj 100 ML @ 100 200 / 200 100 / 100 mls/hr IV.SIG Q8H KEITH Rx#: [id number] Oral 720 / 720 Anesthesia Amount 400 / 400 Output: Urine Amount (Catheter) 600 / 600 Indwelling Urethral Catheter 600 / 600 Other: # Voids 5 Date of Last Bowel Movement 07/13/18 07/13/18 # Incontinent Bowel Movements 6 Narrative: GENERAL: Elderly appearing female, lying in bed in no obvious distress. SKIN: Warm and dry. Multiple ecchymoses over bilateral shins and arms. HEAD: Normocephalic. Small contusion on right parietal scalp without laceration , bleeding, or swelling. CARDIOVASCULAR: regular rhythm without murmurs, gallops, or rubs. RESPIRATORY: Decreased breath sounds bilaterally with rales GASTROINTESTINAL: Abdomen soft and nontender in any quadrant. Normal bowel sounds appreciated. Nondistended. MUSCULOSKELETAL: No cyanosis, or edema. Moves all extremities spontaneously. - Urinary Catheter Management Indwelling Urethral Catheter Cath placed during this visit: yes Reason for continuing: Hourly intake/output Insertion date: 07/13/18 Insertion time: 14:30 Results 07/13/18 06:21 07/13/18 18:10 Cardiac Enzymes 07/13/18 07/13/18 07/13/18 Range/Units 06:21 06:21 18:10 AST 73 H (15-37) U/L Troponin I Cancelled B-Natriuretic Peptide 687 H (0-100) pg/mL Coagulation 07/12/18 07/13/18 Range/Units 06:25 06:21 PT 12.2 H (9.8-11.6) sec B-Natriuretic Peptide 687 H (0-100) pg/mL CBC 07/12/18 07/13/18 Range/Units 06:25 06:21 WBC 15.7 H 16.1 H (4.0-11.0) th/mm3 RBC 3.62 L 3.37 L (4.00-5.30) mil/mm3 Hgb 11.6 11.1 L (11.6-15.3) gm/dL Hct 34.9 L 31.2 L (35.0-46.0) % Plt Count 238 218 (150-450) th/mm3 Neut # (Auto) 14.2 H 13.7 H (1.8-7.7) th/mm3 Lymph # (Auto) 0.6 L 0.9 L (1.0-4.8) th/mm3 Frontier # (Auto) 1.0 H 1.5 H (0.0-0.9) th/mm3 Eos # (Auto) 0.0 0.0 (0.0-0.4) th/mm3 Baso # (Auto) 0.0 0.0 (0.0-0.2) th/mm3 Comprehensive Metabolic Panel 07/12/18 07/12/18 07/12/18 Range/Units 06:25 12:00 16:54 Sodium 137 137 137 (136-145) meq/L Potassium 2.9 L* 3.1 L 3.5 (3.5-5.1) meq/L Chloride 105 105 106 (98-107) meq/L Carbon Dioxide 19.7 L 21.3 19.3 L (21.0-32.0) meq/L BUN 14 13 13 (7-18) mg/dL Creatinine 0.92 1.03 H 1.01 H (0.50-1.00) mg/dL Calcium 7.9 L 7.9 L 7.8 L (8.5-10.1) mg/dL AST (15-37) U/L ALT (10-53) U/L Alkaline Phosphatase (45-117) U/L Total Protein (6.4-8.2) g/dL Albumin (3.4-5.0) g/dL 07/13/18 07/13/18 07/13/18 Range/Units 06:21 09:36 18:10 Sodium 137 (136-145) meq/L Potassium 2.8 L* 3.0 L 3.6 (3.5-5.1) meq/L Chloride 104 (98-107) meq/L Carbon Dioxide 23.7 (21.0-32.0) meq/L BUN 8 (7-18) mg/dL Creatinine 0.65 (0.50-1.00) mg/dL Calcium 7.6 L (8.5-10.1) mg/dL AST 73 H (15-37) U/L ALT 246 H (10-53) U/L Alkaline Phosphatase 89 (45-117) U/L Total Protein 5.7 L (6.4-8.2) g/dL Albumin 2.8 L (3.4-5.0) g/dL Intake and Output 07/13/18 07/13/18 07/13/18 06:59 14:59 22:59 Intake Total 820 / 820 500 / 500 200 / 200 Output Total 600 / 600 Balance 820 / 820 500 / 500 -400 / -400 Intake: IV 100 / 100 100 / 100 200 / 200 KCl 20 mEq Premix Inj 20 meq In 100 / 100 100 / 100 100 ml @ 50 mls/hr IV.SIG Q2H KEITH Rx#:[id number] Flagyl 500 MG Inj 100 ML @ 100 100 / 100 100 / 100 mls/hr IV.SIG Q8H KEITH Rx#: [id number] Oral 720 / 720 Anesthesia Amount 400 / 400 Output: Urine Amount (Catheter) 600 / 600 Indwelling Urethral Catheter 600 / 600 Other: # Voids 5 Date of Last Bowel Movement 07/13/18 07/13/18 07/13/18 # Incontinent Bowel Movements 6 - Imaging and Cardiology Imaging: Impressions Chest X-Ray 07/13/18 00:00 CONCLUSION: 1. Bilateral perihilar infiltrates consistent with moderate to severe pulmonary edema versus pneumonia. Clinical correlation is recommended. 2. Cardiomegaly. 3. Small bilateral pleural effusions. 4. Right internal jugular central line has its tip in superior vena cava. There is no pneumothorax. Assessment and Plan - Assessment (1) Bradycardia Code(s): R00.1 - Bradycardia, unspecified Status: Acute (2) Colitis Code(s): K52.9 - Noninfective gastroenteritis and colitis, unspecified Status : Acute (3) Afib Code(s): I48.91 - Unspecified atrial fibrillation Status: Acute (4) Hypertension Code(s): I10 - Essential (primary) hypertension Status: Acute (5) Hypothyroid Code(s): E03.9 - Hypothyroidism, unspecified Status: Acute (6) Anxiety Code(s): F41.9 - Anxiety disorder, unspecified Status: Acute (7) SKY (acute kidney injury) Code(s): N17.9 - Acute kidney failure, unspecified Status: Acute (8) Hypotension Code(s): I95.9 - Hypotension, unspecified Status: Resolved (9) Sepsis associated hypotension Code(s): A41.9 - Sepsis, unspecified organism; I95.9 - Hypotension, unspecified Status: Acute - Plan 1. Abdominal pain, which appears to be due to colitis. Clinically better 2. Sepsis. Resolved, most likely secondary to colitis 3. Hypotension responsive to IV fluids. Resolved 4. Acute bradycardia secondary to medications. Amiodarone stopped Con't Flecainide Metoprolol held Con't to follow rates for now, currently stable 5. Difficult to control atrial fibrillation with history of atrial fibrillation ablation x2 and atrial flutter ablation x1. Con't Flecainide for now, want to avoid Afib with RVR as possible Eliquis on hold for Cscope/EGD 6. Previous hypothermia. 7. Acute kidney injury. 8. Flash pulmonary edema EKG with minimal changes, similar to previous Most likely due to known moderate to severe MR Will check troponins Repeat echo to evaluate overall function Other possibility would be negative pressure pulmonary edema
[2018-07-13 19:45] LABS: Troponin I 0.1 ng/mL (0.02-0.05)
[2018-07-14 01:20] LABS: Calcium 7.3 mg/dL (8.5-10.1); Magnesium 1.5 mg/dL (1.5-2.5); Phosphorus 1.2 mg/dL (2.5-4.9); Potassium 3.4 meq/L (3.5-5.1); Troponin I 0.07 ng/mL (0.02-0.05)
[2018-07-14 01:28] LABS: Albumin 2.5 g/dL (3.4-5.0); Calcium-Albumin Corrected 8.5 mg/dL (8.5-10.1)
[2018-07-14] MEDS: Levothyroxine 50 MCG Tablet PO SCH (05:14)
[2018-07-14 06:54] LABS: Baso % (Auto) 0.2 % (0.0-2.0); Eos % (Auto) 0.1 % (0.0-4.0); Hematocrit 29.8 % (35.0-46.0); Hemoglobin 10.3 gm/dL (11.6-15.3); Lymph # (Auto) 0.5 th/mm3 (1.0-4.8); Lymph % (Auto) 2.7 % (9.0-44.0); Mean Corpuscular HGB Conc 34.6 % (32.0-36.0); Mean Corpuscular Hemoglobin 32.5 pg (27.0-34.0); Mean Platelet Volume 7.4 fL (7.0-11.0); Mono # (Auto) 1.6 th/mm3 (0.0-0.9); Mono % (Auto) 9.4 % (0.0-8.0); Neut # (Auto) 14.6 th/mm3 (1.8-7.7); Neut % (Auto) 87.6 % (16.0-70.0); Platelet Count 195 th/mm3 (150-450); Red Blood Count 3.16 mil/mm3 (4.00-5.30); Red Cell Distribution Width 14.8 % (11.6-17.2); White Blood Count 16.7 th/mm3 (4.0-11.0)
[2018-07-14 07:22] LABS: Troponin I 0.06 ng/mL (0.02-0.05)
[2018-07-14 07:48] LABS: Lymphocytes 8 % (9-44); Monocytes 6 % (0-8); Myelocytes 1 % (0-0); Platelet Estimate Normal (Normal); Platelet Morphology Normal (Normal); Toxic Granulation 1+
--- NOTE | 2018-07-14 08:26 | ECG ---
Date Performed: 07/13/2018 Time Performed: 18:28:58 PTAGE: 83 years EKG: Sinus rhythm . Extensive ST-T changes are nonspecific Since the previous tracing, no significant change noted [facility] ECG PREVIOUS TRACING : 07/08/2018 19.55 DOCTOR: Alissa Quintero Interpretating Date/Time 07/14/2018 08:23:59
[2018-07-14] MEDS: Flecainide 100 MG Tablet PO SCH ×2 (08:59→20:50)
--- NOTE | 2018-07-14 09:24 | P.PNFP ---
Subjective Interval history: Continuing to saturate at 97% on 15 L non rebreather. States she has a cough that started 2 days after admission, non-productive. Union an episode of palpitations last night, was worried she was going back into afib. No chest pain or chest tightness, feels she is doing well as long as she has O2. Denies leg edema. <Abid Louann Waddell N - 07/14/18 10:52> Results - Labs Result diagrams: 07/14/18 06:30 07/14/18 00:40 <KatieOliver - 07/14/18 11:34> Abnormal lab results 07/13/18 07/13/18 07/13/18 Range/Units 06:21 13:33 18:10 WBC (4.0-11.0) th/mm3 RBC (4.00-5.30) mil/mm3 Hgb (11.6-15.3) gm/dL Hct (35.0-46.0) % Neut % (Auto) (16.0-70.0) % Lymph % (Auto) (9.0-44.0) % [place] % (Auto) (0.0-8.0) % Neut # (Auto) (1.8-7.7) th/mm3 Lymph # (Auto) (1.0-4.8) th/mm3 [place] # (Auto) (0.0-0.9) th/mm3 Seg Neuts % (Manual) (16-70) % Lymphocytes % (Manual) (9-44) % Myelocytes % (Man) (0-0) % Abs Neuts (Manual) (1.8-7.7) th/mm3 Toxic Granulation (None) O2 Saturation 87 L* (90-100) % ABG pCO2 32 L (38-42) mmHg ABG pO2 52 L* (61-120) mmHG ABG HCO3 20 L (22-26) mmol/L ABG Base Excess -3.5 L (-2-2) mmol/L Hemoglobin 11.0 L (12.0-16.0) G/DL Potassium (3.5-5.1) meq/L Estimated GFR (>89) mL/min POC Glucose (68-110) mg/dl Random Glucose (74-106) mg/dL Calcium (8.5-10.1) mg/dL Phosphorus 1.2 L (2.5-4.9) mg/dL Troponin I 0.10 H (0.02-0.05) ng/mL B-Natriuretic Peptide 687 H (0-100) pg/mL Albumin (3.4-5.0) g/dL 07/14/18 07/14/18 07/14/18 Range/Units 00:40 06:30 06:30 WBC 16.7 H (4.0-11.0) th/mm3 RBC 3.16 L (4.00-5.30) mil/mm3 Hgb 10.3 L (11.6-15.3) gm/dL Hct 29.8 L (35.0-46.0) % Neut % (Auto) 87.6 H (16.0-70.0) % Lymph % (Auto) 2.7 L (9.0-44.0) % [place] % (Auto) 9.4 H (0.0-8.0) % Neut # (Auto) 14.6 H (1.8-7.7) th/mm3 Lymph # (Auto) 0.5 L (1.0-4.8) th/mm3 [place] # (Auto) 1.6 H (0.0-0.9) th/mm3 Seg Neuts % (Manual) 80 H (16-70) % Lymphocytes % (Manual) 8 L (9-44) % Myelocytes % (Man) 1 H (0-0) % Abs Neuts (Manual) 14.4 H (1.8-7.7) th/mm3 Toxic Granulation 1+ H (None) O2 Saturation (90-100) % ABG pCO2 (38-42) mmHg ABG pO2 (61-120) mmHG ABG HCO3 (22-26) mmol/L ABG Base Excess (-2-2) mmol/L Hemoglobin (12.0-16.0) G/DL Potassium 3.4 L (3.5-5.1) meq/L Estimated GFR 70 L (>89) mL/min POC Glucose (68-110) mg/dl Random Glucose 119 H (74-106) mg/dL Calcium 7.3 L* (8.5-10.1) mg/dL Phosphorus 1.2 L (2.5-4.9) mg/dL Troponin I 0.07 H (0.02-0.05) ng/mL B-Natriuretic Peptide 361 H (0-100) pg/mL Albumin 2.5 L (3.4-5.0) g/dL 07/14/18 07/14/18 Range/Units 06:30 09:49 WBC (4.0-11.0) th/mm3 RBC (4.00-5.30) mil/mm3 Hgb (11.6-15.3) gm/dL Hct (35.0-46.0) % Neut % (Auto) (16.0-70.0) % Lymph % (Auto) (9.0-44.0) % [place] % (Auto) (0.0-8.0) % Neut # (Auto) (1.8-7.7) th/mm3 Lymph # (Auto) (1.0-4.8) th/mm3 [place] # (Auto) (0.0-0.9) th/mm3 Seg Neuts % (Manual) (16-70) % Lymphocytes % (Manual) (9-44) % Myelocytes % (Man) (0-0) % Abs Neuts (Manual) (1.8-7.7) th/mm3 Toxic Granulation (None) O2 Saturation (90-100) % ABG pCO2 (38-42) mmHg ABG pO2 (61-120) mmHG ABG HCO3 (22-26) mmol/L ABG Base Excess (-2-2) mmol/L Hemoglobin (12.0-16.0) G/DL Potassium (3.5-5.1) meq/L Estimated GFR (>89) mL/min POC Glucose 141 H (68-110) mg/dl Random Glucose (74-106) mg/dL Calcium (8.5-10.1) mg/dL Phosphorus (2.5-4.9) mg/dL Troponin I 0.06 H (0.02-0.05) ng/mL B-Natriuretic Peptide (0-100) pg/mL Albumin (3.4-5.0) g/dL Short CBC 07/14/18 Range/Units 06:30 WBC 16.7 H (4.0-11.0) th/mm3 Hgb 10.3 L (11.6-15.3) gm/dL Hct 29.8 L (35.0-46.0) % Plt Count 195 (150-450) th/mm3 BMP 07/13/18 07/14/18 18:10 00:40 Sodium 138 Potassium 3.6 3.4 L Chloride 103 Carbon Dioxide 26.0 BUN 8 Creatinine 0.79 Calcium 7.3 L* Cardiac Enzymes 07/13/18 07/13/18 07/14/18 Range/Units 18:10 18:10 00:40 Total Creatine Kinase 105 Cancelled 75 (26-192) U/L Troponin I 0.10 H Cancelled 0.07 H (0.02-0.05) ng/mL 07/14/18 Range/Units 06:30 Total Creatine Kinase 59 (26-192) U/L Troponin I 0.06 H (0.02-0.05) ng/mL Liver Function 07/14/18 Range/Units 00:40 Albumin 2.5 L (3.4-5.0) g/dL <Oliver Wilson - 07/14/18 11:34> Abnormal lab results 07/13/18 07/13/18 07/13/18 Range/Units 06:21 09:36 13:33 WBC (4.0-11.0) th/mm3 RBC (4.00-5.30) mil/mm3 Hgb (11.6-15.3) gm/dL Hct (35.0-46.0) % Neut % (Auto) (16.0-70.0) % Lymph % (Auto) (9.0-44.0) % [place] % (Auto) (0.0-8.0) % Neut # (Auto) (1.8-7.7) th/mm3 Lymph # (Auto) (1.0-4.8) th/mm3 [place] # (Auto) (0.0-0.9) th/mm3 Seg Neuts % (Manual) (16-70) % Lymphocytes % (Manual) (9-44) % Myelocytes % (Man) (0-0) % Abs Neuts (Manual) (1.8-7.7) th/mm3 Toxic Granulation (None) O2 Saturation 87 L* (90-100) % ABG pCO2 32 L (38-42) mmHg ABG pO2 52 L* (61-120) mmHG ABG HCO3 20 L (22-26) mmol/L ABG Base Excess -3.5 L (-2-2) mmol/L Hemoglobin 11.0 L (12.0-16.0) G/DL Potassium 3.0 L (3.5-5.1) meq/L Estimated GFR (>89) mL/min Random Glucose (74-106) mg/dL Calcium (8.5-10.1) mg/dL Phosphorus 1.1 L (2.5-4.9) mg/dL Troponin I (0.02-0.05) ng/mL B-Natriuretic Peptide 687 H (0-100) pg/mL Albumin (3.4-5.0) g/dL 07/13/18 07/14/18 07/14/18 Range/Units 18:10 00:40 06:30 WBC (4.0-11.0) th/mm3 RBC (4.00-5.30) mil/mm3 Hgb (11.6-15.3) gm/dL Hct (35.0-46.0) % Neut % (Auto) (16.0-70.0) % Lymph % (Auto) (9.0-44.0) % [place] % (Auto) (0.0-8.0) % Neut # (Auto) (1.8-7.7) th/mm3 Lymph # (Auto) (1.0-4.8) th/mm3 [place] # (Auto) (0.0-0.9) th/mm3 Seg Neuts % (Manual) (16-70) % Lymphocytes % (Manual) (9-44) % Myelocytes % (Man) (0-0) % Abs Neuts (Manual) (1.8-7.7) th/mm3 Toxic Granulation (None) O2 Saturation (90-100) % ABG pCO2 (38-42) mmHg ABG pO2 (61-120) mmHG ABG HCO3 (22-26) mmol/L ABG Base Excess (-2-2) mmol/L Hemoglobin (12.0-16.0) G/DL Potassium 3.4 L (3.5-5.1) meq/L Estimated GFR 70 L (>89) mL/min Random Glucose 119 H (74-106) mg/dL Calcium 7.3 L* (8.5-10.1) mg/dL Phosphorus 1.2 L 1.2 L (2.5-4.9) mg/dL Troponin I 0.10 H 0.07 H (0.02-0.05) ng/mL B-Natriuretic Peptide 361 H (0-100) pg/mL Albumin 2.5 L (3.4-5.0) g/dL 07/14/18 07/14/18 Range/Units 06:30 06:30 WBC 16.7 H (4.0-11.0) th/mm3 RBC 3.16 L (4.00-5.30) mil/mm3 Hgb 10.3 L (11.6-15.3) gm/dL Hct 29.8 L (35.0-46.0) % Neut % (Auto) 87.6 H (16.0-70.0) % Lymph % (Auto) 2.7 L (9.0-44.0) % [place] % (Auto) 9.4 H (0.0-8.0) % Neut # (Auto) 14.6 H (1.8-7.7) th/mm3 Lymph # (Auto) 0.5 L (1.0-4.8) th/mm3 [place] # (Auto) 1.6 H (0.0-0.9) th/mm3 Seg Neuts % (Manual) 80 H (16-70) % Lymphocytes % (Manual) 8 L (9-44) % Myelocytes % (Man) 1 H (0-0) % Abs Neuts (Manual) 14.4 H (1.8-7.7) th/mm3 Toxic Granulation 1+ H (None) O2 Saturation (90-100) % ABG pCO2 (38-42) mmHg ABG pO2 (61-120) mmHG ABG HCO3 (22-26) mmol/L ABG Base Excess (-2-2) mmol/L Hemoglobin (12.0-16.0) G/DL Potassium (3.5-5.1) meq/L Estimated GFR (>89) mL/min Random Glucose (74-106) mg/dL Calcium (8.5-10.1) mg/dL Phosphorus (2.5-4.9) mg/dL Troponin I 0.06 H (0.02-0.05) ng/mL B-Natriuretic Peptide (0-100) pg/mL Albumin (3.4-5.0) g/dL Short CBC 07/14/18 Range/Units 06:30 WBC 16.7 H (4.0-11.0) th/mm3 Hgb 10.3 L (11.6-15.3) gm/dL Hct 29.8 L (35.0-46.0) % Plt Count 195 (150-450) th/mm3 BMP 07/13/18 07/13/18 07/14/18 09:36 18:10 00:40 Sodium 138 Potassium 3.0 L 3.6 3.4 L Chloride 103 Carbon Dioxide 26.0 BUN 8 Creatinine 0.79 Calcium 7.3 L* Cardiac Enzymes 07/13/18 07/13/18 07/14/18 Range/Units 18:10 18:10 00:40 Total Creatine Kinase 105 Cancelled 75 (26-192) U/L Troponin I 0.10 H Cancelled 0.07 H (0.02-0.05) ng/mL 07/14/18 Range/Units 06:30 Total Creatine Kinase 59 (26-192) U/L Troponin I 0.06 H (0.02-0.05) ng/mL Liver Function 07/14/18 Range/Units 00:40 Albumin 2.5 L (3.4-5.0) g/dL <Louann Gonzalez - 07/14/18 09:24> - Imaging Impressions Chest X-Ray 07/13/18 00:00 CONCLUSION: 1. Bilateral perihilar infiltrates consistent with moderate to severe pulmonary edema versus pneumonia. Clinical correlation is recommended. 2. Cardiomegaly. 3. Small bilateral pleural effusions. 4. Right internal jugular central line has its tip in superior vena cava. There is no pneumothorax. <Oliver Wilson - 07/14/18 11:34> Impressions Chest X-Ray 07/13/18 00:00 CONCLUSION: 1. Bilateral perihilar infiltrates consistent with moderate to severe pulmonary edema versus pneumonia. Clinical correlation is recommended. 2. Cardiomegaly. 3. Small bilateral pleural effusions. 4. Right internal jugular central line has its tip in superior vena cava. There is no pneumothorax. <Louann Gonzalez - 07/14/18 09:24> Physical Exam Vital signs: Vital Signs 07/13/18 12:00 07/13/18 13:30 07/13/18 13:35 Temperature 97.6 F Pulse Rate 87 82 Respiratory Rate 20 Blood Pressure 129/60 Pulse Oximetry 88 L 91 L 07/13/18 13:45 07/13/18 14:00 07/13/18 14:15 Temperature Pulse Rate 87 86 85 Respiratory Rate 16 18 18 Blood Pressure 128/60 132/63 130/64 Pulse Oximetry 92 L 93 L 94 L 07/13/18 14:30 07/13/18 14:45 07/13/18 15:00 Temperature Pulse Rate 87 86 85 Respiratory Rate 18 17 17 Blood Pressure 128/65 131/66 131/62 Pulse Oximetry 94 L 93 L 96 07/13/18 15:15 07/13/18 15:30 07/13/18 15:45 Temperature 97.8 F Pulse Rate 85 84 87 Respiratory Rate 16 16 17 Blood Pressure 132/64 139/67 142/67 H Pulse Oximetry 94 L 95 95 07/13/18 15:55 07/13/18 16:00 07/13/18 16:08 Temperature 99.0 F Pulse Rate 90 Respiratory Rate Blood Pressure 157/67 H Pulse Oximetry 95 97 93 L 07/13/18 16:17 07/13/18 16:38 07/13/18 16:53 Temperature Pulse Rate 86 83 84 Respiratory Rate 28 H 26 H 28 H Blood Pressure 157/69 H 155/72 H 152/70 H Pulse Oximetry 93 L 99 99 07/13/18 17:00 07/13/18 17:08 07/13/18 17:23 Temperature Pulse Rate 84 85 85 Respiratory Rate 27 H 29 H 28 H Blood Pressure 155/72 H 148/69 H Pulse Oximetry 99 98 100 07/13/18 17:38 07/13/18 17:53 07/13/18 18:00 Temperature Pulse Rate 87 89 88 Respiratory Rate 26 H 28 H 31 H Blood Pressure 152/72 H 150/67 H 154/72 H Pulse Oximetry 99 97 98 07/13/18 19:00 07/13/18 20:00 07/13/18 21:00 Temperature 100.4 F H Pulse Rate 92 H 108 H 83 Respiratory Rate 26 H 26 H 26 H Blood Pressure 155/67 H 130/68 138/65 Pulse Oximetry 93 L 99 99 07/13/18 22:00 07/13/18 23:00 07/13/18 23:53 Temperature Pulse Rate 79 81 77 Respiratory Rate 26 H 30 H 20 Blood Pressure 127/60 129/61 Pulse Oximetry 97 97 07/14/18 00:00 07/14/18 01:00 07/14/18 02:00 Temperature 100.5 F H Pulse Rate 81 87 81 Respiratory Rate 30 H 30 H 30 H Blood Pressure 122/60 121/58 L 125/60 Pulse Oximetry 97 97 97 07/14/18 03:00 07/14/18 04:00 07/14/18 04:06 Temperature 99.2 F Pulse Rate 81 81 81 Respiratory Rate 28 H 26 H 17 Blood Pressure 137/60 135/63 Pulse Oximetry 96 96 07/14/18 05:00 07/14/18 06:00 07/14/18 07:00 Temperature Pulse Rate 92 H 86 80 Respiratory Rate 26 H 26 H 25 H Blood Pressure 135/62 135/63 126/62 Pulse Oximetry 97 99 98 07/14/18 08:00 07/14/18 08:40 07/14/18 09:00 Temperature 99.4 F Pulse Rate 82 87 Respiratory Rate 26 H 27 H Blood Pressure 133/63 134/63 Pulse Oximetry 96 97 94 L 07/14/18 10:00 07/14/18 11:00 07/14/18 11:14 Temperature Pulse Rate 85 82 Respiratory Rate 27 H 27 H Blood Pressure 132/83 136/60 Pulse Oximetry 97 95 92 L Intake & Output 07/13/18 07/14/18 07/14/18 18:59 06:59 18:59 Intake Total 700 / 700 695 / 695 100 / 100 Output Total 600 / 600 2000 / 2000 Balance 100 / 100 -1305 / -1305 100 / 100 Weight 69.1 kg Intake: IV 300 / 300 455 / 455 100 / 100 KCl 20 mEq Premix Inj 20 meq In 200 / 200 200 / 200 100 ml @ 50 mls/hr IV.SIG Q2H [facility] Rx#:[id number] Potassium Phosphate Inj 15 MMOL 155 / 155 In NS Inj 150 ML @ 38.75 mls/ hr IV.SIG ONCE ONE Rx#:[id number] Flagyl 500 MG Inj 100 ML @ 100 100 / 100 100 / 100 100 / 100 mls/hr IV.SIG Q8H [facility] Rx#: [id number] Oral 240 / 240 Anesthesia Amount 400 / 400 Output: Urine Amount (Catheter) 600 / 600 1999 Indwelling Urethral Catheter 600 / 600 1999 Other: Date of Last Bowel Movement 07/13/18 07/13/18 07/13/18 # Bowel Movements 0 <Oliver Wilson - 07/14/18 11:34> Vital Signs 07/13/18 09:34 07/13/18 11:30 07/13/18 12:00 Temperature 98.8 F Pulse Rate 85 87 Respiratory Rate 18 Blood Pressure 138/76 Pulse Oximetry 92 L 93 L 07/13/18 13:30 07/13/18 13:35 07/13/18 13:45 Temperature 97.6 F Pulse Rate 82 87 Respiratory Rate 20 16 Blood Pressure 129/60 128/60 Pulse Oximetry 88 L 91 L 92 L 07/13/18 14:00 07/13/18 14:15 07/13/18 14:30 Temperature Pulse Rate 86 85 87 Respiratory Rate 18 18 18 Blood Pressure 132/63 130/64 128/65 Pulse Oximetry 93 L 94 L 94 L 07/13/18 14:45 07/13/18 15:00 07/13/18 15:15 Temperature Pulse Rate 86 85 85 Respiratory Rate 17 17 16 Blood Pressure 131/66 131/62 132/64 Pulse Oximetry 93 L 96 94 L 07/13/18 15:30 07/13/18 15:45 07/13/18 15:55 Temperature 97.8 F Pulse Rate 84 87 Respiratory Rate 16 17 Blood Pressure 139/67 142/67 H Pulse Oximetry 95 95 95 07/13/18 16:00 07/13/18 16:08 07/13/18 16:17 Temperature 99.0 F Pulse Rate 90 86 Respiratory Rate 28 H Blood Pressure 157/67 H 157/69 H Pulse Oximetry 97 93 L 93 L 07/13/18 16:38 07/13/18 16:53 07/13/18 17:00 Temperature Pulse Rate 83 84 84 Respiratory Rate 26 H 28 H 27 H Blood Pressure 155/72 H 152/70 H Pulse Oximetry 99 99 99 07/13/18 17:08 07/13/18 17:23 07/13/18 17:38 Temperature Pulse Rate 85 85 87 Respiratory Rate 29 H 28 H 26 H Blood Pressure 155/72 H 148/69 H 152/72 H Pulse Oximetry 98 100 99 07/13/18 17:53 07/13/18 18:00 07/13/18 19:00 Temperature Pulse Rate 89 88 92 H Respiratory Rate 28 H 31 H 26 H Blood Pressure 150/67 H 154/72 H 155/67 H Pulse Oximetry 97 98 93 L 07/13/18 20:00 07/13/18 21:00 07/13/18 22:00 Temperature 100.4 F H Pulse Rate 108 H 83 79 Respiratory Rate 26 H 26 H 26 H Blood Pressure 130/68 138/65 127/60 Pulse Oximetry 99 99 97 07/13/18 23:00 07/13/18 23:53 07/14/18 00:00 Temperature 100.5 F H Pulse Rate 81 77 81 Respiratory Rate 30 H 20 30 H Blood Pressure 129/61 122/60 Pulse Oximetry 97 97 07/14/18 01:00 07/14/18 02:00 07/14/18 03:00 Temperature Pulse Rate 87 81 81 Respiratory Rate 30 H 30 H 28 H Blood Pressure 121/58 L 125/60 137/60 Pulse Oximetry 97 97 96 07/14/18 04:00 07/14/18 04:06 07/14/18 05:00 Temperature 99.2 F Pulse Rate 81 81 92 H Respiratory Rate 26 H 17 26 H Blood Pressure 135/63 135/62 Pulse Oximetry 96 97 07/14/18 06:00 07/14/18 07:00 07/14/18 08:00 Temperature 99.4 F Pulse Rate 86 80 82 Respiratory Rate 26 H 25 H 26 H Blood Pressure 135/63 126/62 133/63 Pulse Oximetry 99 98 96 07/14/18 08:40 07/14/18 09:00 Temperature Pulse Rate 87 Respiratory Rate 27 H Blood Pressure 134/63 Pulse Oximetry 97 94 L Intake & Output 07/13/18 07/14/18 07/14/18 18:59 06:59 18:59 Intake Total 700 / 700 695 / 695 Output Total 600 / 600 2000 / 2000 Balance 100 / 100 -1305 / -1305 Weight 69.1 kg Intake: IV 300 / 300 455 / 455 KCl 20 mEq Premix Inj 20 meq In 200 / 200 200 / 200 100 ml @ 50 mls/hr IV.SIG Q2H [facility] Rx#:[id number] Potassium Phosphate Inj 15 MMOL 155 / 155 In NS Inj 150 ML @ 38.75 mls/ hr IV.SIG ONCE ONE Rx#:[id number] Flagyl 500 MG Inj 100 ML @ 100 100 / 100 100 / 100 mls/hr IV.SIG Q8H ERIK Rx#: [id number] Oral 240 / 240 Anesthesia Amount 400 / 400 Output: Urine Amount (Catheter) 600 / 600 1999 Indwelling Urethral Catheter 600 / 600 1999 Other: Date of Last Bowel Movement 07/13/18 07/13/18 07/13/18 # Bowel Movements 0 <Louann Gonzalez - 07/14/18 09:24> Narrative: GENERAL: Elderly appearing female, sitting up in bed on non-rebreather. SKIN: Warm and dry. Multiple ecchymoses over bilateral shins and arms. HEAD: Normocephalic. CARDIOVASCULAR: regular rhythm and rate. Systolic murmur noted. RESPIRATORY: Crackles in bilateral lobes, air flow limited. GASTROINTESTINAL: Abdomen soft and nontender in any quadrant. Normal bowel sounds appreciated. Nondistended. MUSCULOSKELETAL: No cyanosis, or edema. Moves all extremities spontaneously. <Louann Gonzalez - 07/14/18 10:52> - Urinary Catheter Management Indwelling Urethral Catheter Cath placed during this visit: no <Oliver Wilson - 07/14/18 11:34> yes <Louann Gonzalez [facility] 07/14/18 10:52> Reason for continuing: Hourly intake/output <AbiLouann Delgadillo [facility] 07/14/18 09:24 > Insertion date: 07/13/18 <AbiLouann Delgadillo [facility] 07/14/18 09:24> Insertion time: 14:30 <Abid Louann Waddell [facility] 07/14/18 09:24> Assessment and Plan - Assessment (1) Colitis Code(s): K52.9 - Noninfective gastroenteritis and colitis, unspecified Status : Acute (2) Acute hypoxemic respiratory failure Code(s): J96.01 - Acute respiratory failure with hypoxia Status: Acute (3) Mitral regurgitation Code(s): I34.0 - Nonrheumatic mitral (valve) insufficiency Status: Acute (4) Electrolyte abnormality Code(s): E87.8 - Other disorders of electrolyte and fluid balance, not elsewhere classified Status: Acute (5) Afib Code(s): I48.91 - Unspecified atrial fibrillation Status: Acute (6) Anxiety Code(s): F41.9 - Anxiety disorder, unspecified Status: Acute (7) Hypothyroid Code(s): E03.9 - Hypothyroidism, unspecified Status: Acute (8) Symptomatic bradycardia Code(s): R00.1 - Bradycardia, unspecified Status: Resolved (9) Sepsis associated hypotension Code(s): A41.9 - Sepsis, unspecified organism; I95.9 - Hypotension, unspecified Status: Resolved <Oliver Wilson - 07/14/18 11:34> (1) Colitis Code(s): K52.9 - Noninfective gastroenteritis and colitis, unspecified Status : Acute Plan: Sepsis associated with possible colitis (per CT scan), hypotension resolved, and bradycardia resolved. -Critical care consulted and signed off 07/11 -Blood cultures from 07/08-no growth to date -ID consulted. Patient placed on Flagyl - S/p colonoscopy and egd for evidence of source for colitis. No acute abnormalities found - Eliquis resumed post procedure -On Flagyl 500 mg IV every 8 hours (07/09 - present), day #5 -S/p Cefepime 2 g IV every 8 hours (07/09 - 07/10) Con't flagyl for now per ID recs (2) Acute hypoxemic respiratory failure Code(s): J96.01 - Acute respiratory failure with hypoxia Status: Acute Plan: Flash pulmonary edema after EGD and colonoscopy Hypoxic on room air, requiring 15 L on non-rebreather BNP was elevated at 687, indicating moderate fluid overload Receiving diuresis since yesterday CC consulted to assist in management and monitor, based on complexity of patient 's risk factors and comorbidities On tele Spoke w/CC Dr. Cid, plan to con't diuresis for now and try to wean off non- rebreather (3) Mitral regurgitation Code(s): I34.0 - Nonrheumatic mitral (valve) insufficiency Status: Acute Plan: Per echo 18: Normal left ventricular size. Wall thickness is measured at the upper limits of normal. The left ventricular systolic function is normal with an estimated ejection fraction in the range of 55-60%. The left atrial size is mildly dilated. Moderate to severe mitral valve regurgitation. Trace aortic valve regurgitation. There is moderate tricuspid regurgitation. The estimated pulmonary arterial pressure is 70 mmHg. May predispose patient to atelactasis and likely contributed to pulmonary edema Seen by cardiology yesterday, echo ordered Plan to diuresis as needed for now, monitor kidney function Metoprolol continues to be held, on flecainide (4) Electrolyte abnormality Code(s): E87.8 - Other disorders of electrolyte and fluid balance, not elsewhere classified Status: Acute Plan: Monitor potassium and phosphate and replete as needed (5) Afib Code(s): I48.91 - Unspecified atrial fibrillation Status: Acute Plan: Multiple hospitalizations for paroxysmal, symptomatic afib S/p multiple ablations -Currently holding metoprolol -Continue to monitor on telemetry -Continue to follow cardiology recommendations: -flecainide 100mg BID (6) Anxiety Code(s): F41.9 - Anxiety disorder, unspecified Status: Acute Plan: May resume Xanax 0.25 mg p.o. (7) Hypothyroid Code(s): E03.9 - Hypothyroidism, unspecified Status: Acute Plan: Continue levothyroxine 50 mcg daily (8) Symptomatic bradycardia Code(s): R00.1 - Bradycardia, unspecified Status: Resolved Plan: Resolved (9) Sepsis associated hypotension Code(s): A41.9 - Sepsis, unspecified organism; I95.9 - Hypotension, unspecified Status: Resolved Plan: Resolved <Abidianne R2Louann N - 07/14/18 10:52> - Assessment and Plan Hospital course: -Status post normal saline bolus 1 L x4 -Stool C. difficile screen negative -Leukocytosis improving; 9.4 on admission and then trended: 24.9, 17.4, 14.7 -Lactic acid trend 1.4 -> 2.3 -> 1.9 -CRP elevated at 2.44 -TSH within normal limits but free T4 elevated at 1.76, free T3 decreased at 0.86 -Thoracic aorta CT: No evidence for aortic aneurysm or dissection, diffuse colonic wall thickening most notably in the transverse colon. Findings are most concerning for colitis, likely infectious or inflammatory in etiology. The mesenteric arteries are patent which makes ischemic etiology unlikely. Moderate severe sigmoid diverticulosis. -Head CT: No acute intracranial abnormality. Atrophy and chronic white matter changes -Abdominal CT without contrast: Unremarkable study without evidence of bowel obstruction or free fluid or free air of any significance. Gallbladder is well distended. Kidneys are functioning. Degenerative arthritis lower lumbar spine. Bibasilar consolidation, likely atelectasis. Sigmoid diverticulosis. Hypotension resolved. - Echo done on 07/11 showed moderate to severe mitral regurgitation and bilateral atelactasis. Patient was encouraged to mobilize with PT and breathing treatments were ordered but spaced out to prevent arrythmias. - 07/13 endoscopy and colonoscopy. No abnormalities on egd, colonsocopy showed large internal hemorrhoids and severe diverticulosis. Colonoscopy recommended in 1 year. After procedure, patient went into acute respiratory failure 2/2 to flash pulmonary edema. Underwent diuresis to improve symptoms and monitored on telemetry. <Louann Gonzalez - 07/14/18 10:52> Discharge Planning: Pending completion of workup and clearance from cardio <Louann Gonzalez - 07/14/18 10:52> - Attending Attestation Patient case discussed with resident physicians I have independently examined the patient I have read the above note and agree with the assessment and plan as discussed with me I was involved in all medical decision making for this patient Flash pulmonary edema: Patient diuresed well yesterday afternoon and feels her breathing is improved Still requiring 15 L nonrebreather Continue diuresis today and wean oxygen as tolerated Colitis: Continue Flagyl to complete 7-day course Status post colonoscopy and EGD Atrial fibrillation: Continue flecainide and Eliquis Oliver Wilson MD <Oliver Wilson - 07/14/18 11:34>
--- NOTE | 2018-07-14 11:31 | P.PNCC ---
Subjective Subjective Remarks/Hospital Course: 07/10: Afebrile. Patient awake and alert. Overnight heart rate range 48-60's. Flecainide dose was held last p.m. and review of the MAR. Today the patient was noted to be sustaining a MAP 60-61, patient received 250 cc 5% albumin and remained normotensive. Patient tolerating clear liquid diet. 07/11: Patient hemodynamically stable heart rate 50s-70s. Patient continues on flecainide. She was noted to have a positive stool for occult blood yesterday afternoon GI was consulted per plans for panendoscopy in the near future peer Eliquis was placed on hold. The patient was noted to have a low potassium level this a.m. 20 mEq IV was provided along with additional scheduled dosing of p.o. potassium. 07/13: The patient developed hypoxemic respiratory failure today and is being transferred to the intensive care unit for a higher level of care. Results of the endoscopies presently not available, but will review. Chest x-ray looks like pulmonary edema with bilateral hilar congestion and prominent pulmonary veins. 07/14: Persistent hypoxemia today with labored breathing. Diuresis over 2 L yesterday however respiratory status remains compromised. Multiple electrolyte abnormalities, now being replaced. She has remained in sinus rhythm. Objective Vital Signs / I&O: Vital Signs 07/13/18 11:30 07/13/18 12:00 07/13/18 13:30 Temperature 98.8 F 97.6 F Pulse Rate 85 87 82 Respiratory Rate 18 20 Blood Pressure 138/76 129/60 Pulse Oximetry 93 L 88 L 07/13/18 13:35 07/13/18 13:45 07/13/18 14:00 Temperature Pulse Rate 87 86 Respiratory Rate 16 18 Blood Pressure 128/60 132/63 Pulse Oximetry 91 L 92 L 93 L 07/13/18 14:15 07/13/18 14:30 07/13/18 14:45 Temperature Pulse Rate 85 87 86 Respiratory Rate 18 18 17 Blood Pressure 130/64 128/65 131/66 Pulse Oximetry 94 L 94 L 93 L 07/13/18 15:00 07/13/18 15:15 07/13/18 15:30 Temperature Pulse Rate 85 85 84 Respiratory Rate 17 16 16 Blood Pressure 131/62 132/64 139/67 Pulse Oximetry 96 94 L 95 07/13/18 15:45 07/13/18 15:55 07/13/18 16:00 Temperature 97.8 F Pulse Rate 87 90 Respiratory Rate 17 Blood Pressure 142/67 H Pulse Oximetry 95 95 97 07/13/18 16:08 07/13/18 16:17 07/13/18 16:38 Temperature 99.0 F Pulse Rate 86 83 Respiratory Rate 28 H 26 H Blood Pressure 157/67 H 157/69 H 155/72 H Pulse Oximetry 93 L 93 L 99 07/13/18 16:53 07/13/18 17:00 07/13/18 17:08 Temperature Pulse Rate 84 84 85 Respiratory Rate 28 H 27 H 29 H Blood Pressure 152/70 H 155/72 H Pulse Oximetry 99 99 98 07/13/18 17:23 07/13/18 17:38 07/13/18 17:53 Temperature Pulse Rate 85 87 89 Respiratory Rate 28 H 26 H 28 H Blood Pressure 148/69 H 152/72 H 150/67 H Pulse Oximetry 100 99 97 07/13/18 18:00 07/13/18 19:00 07/13/18 20:00 Temperature 100.4 F H Pulse Rate 88 92 H 108 H Respiratory Rate 31 H 26 H 26 H Blood Pressure 154/72 H 155/67 H 130/68 Pulse Oximetry 98 93 L 99 07/13/18 21:00 07/13/18 22:00 07/13/18 23:00 Temperature Pulse Rate 83 79 81 Respiratory Rate 26 H 26 H 30 H Blood Pressure 138/65 127/60 129/61 Pulse Oximetry 99 97 97 07/13/18 23:53 07/14/18 00:00 07/14/18 01:00 Temperature 100.5 F H Pulse Rate 77 81 87 Respiratory Rate 20 30 H 30 H Blood Pressure 122/60 121/58 L Pulse Oximetry 97 97 07/14/18 02:00 07/14/18 03:00 07/14/18 04:00 Temperature 99.2 F Pulse Rate 81 81 81 Respiratory Rate 30 H 28 H 26 H Blood Pressure 125/60 137/60 135/63 Pulse Oximetry 97 96 96 07/14/18 04:06 07/14/18 05:00 07/14/18 06:00 Temperature Pulse Rate 81 92 H 86 Respiratory Rate 17 26 H 26 H Blood Pressure 135/62 135/63 Pulse Oximetry 97 99 07/14/18 07:00 07/14/18 08:00 07/14/18 08:40 Temperature 99.4 F Pulse Rate 80 82 Respiratory Rate 25 H 26 H Blood Pressure 126/62 133/63 Pulse Oximetry 98 96 97 07/14/18 09:00 07/14/18 10:00 07/14/18 11:00 Temperature Pulse Rate 87 85 82 Respiratory Rate 27 H 27 H 27 H Blood Pressure 134/63 132/83 136/60 Pulse Oximetry 94 L 97 95 07/14/18 11:14 Temperature Pulse Rate Respiratory Rate Blood Pressure Pulse Oximetry 92 L Intake & Output 07/13/18 07/14/18 07/14/18 18:59 06:59 18:59 Intake Total 700 / 700 695 / 695 100 / 100 Output Total 600 / 600 1999 Balance 100 / 100 -1305 / -1305 100 / 100 Weight 69.1 kg Intake: IV 300 / 300 455 / 455 100 / 100 KCl 20 mEq Premix Inj 20 meq In 200 / 200 200 / 200 100 ml @ 50 mls/hr IV.SIG Q2H [facility] Rx#:[id number] Potassium Phosphate Inj 15 MMOL 155 / 155 In NS Inj 150 ML @ 38.75 mls/ hr IV.SIG ONCE ONE Rx#:[id number] Flagyl 500 MG Inj 100 ML @ 100 100 / 100 100 / 100 100 / 100 mls/hr IV.SIG Q8H [facility] Rx#: [id number] Oral 240 / 240 Anesthesia Amount 400 / 400 Output: Urine Amount (Catheter) 600 / 600 1999 Indwelling Urethral Catheter 600 / 600 1999 Other: Date of Last Bowel Movement 07/13/18 07/13/18 07/13/18 # Bowel Movements 0 Result Diagrams: 07/14/18 06:30 07/14/18 00:40 Objective Remarks: GENERAL: Chronically ill-appearing elderly female SKIN: Warm and dry. Large areas of bruising bilateral arms HEAD: Atraumatic. Normocephalic. EYES: Pupils equal and round. No scleral icterus. No injection or drainage. ENT: No nasal bleeding or discharge. Mucous membranes pink and moist. NECK: Trachea midline. Airway widely patent CARDIOVASCULAR: Normal rate, regular rhythm. RESPIRATORY: Accessory muscle use is present, labored breathing. Persistent dependent crackles. GASTROINTESTINAL: Abdomen soft, non-tender, nondistended. No guarding. Bowel sounds are present MUSCULOSKELETAL: Extremities without clubbing, cyanosis, or edema. Small multiple areas of ecchymotic bruising on forearms, no obvious deformities. NEUROLOGICAL: Awake and alert. RASS 0. No gross focal/sensory deficits. Follows commands in all 4 extremities. Assessment and Plan - Assessment and Plan Plan: Active problems: Severe sepsis Hypotension-resolved acute bradycardia possible amiodarone toxicity hypothermia colitis, unclear etiology acute kidney injury GI bleed Plan Nonrebreathing mask for now, consider BiPAP noninvasive ventilation continue flagyl cefepime iv F/U blood cultures c. diff PCR negative 2d echo strict i/o's daily bmp, cbc, mag, phosphorus. Gastroenterology service is following and performed endoscopy today Review arrhythmia management with cardiology service Overall impression: Physically and radiographically this appears to be flash pulmonary edema. Heart rate control is acceptable but she is not responding clinically to aggressive diuresis. Her radiographic picture is worse with considerable pulmonary venous engorgement. We will continue aggressive diuresis at this point and replace electrolytes as needed. Persistent low- grade fevers and leukocytosis remain concerning -I suspect she may have some sort of pneumonitis and we will continue broad antibiotic coverage. She remains critically ill. Critical care time 45 minutes
--- NOTE | 2018-07-14 11:44 | XR ---
EXAM DATE: 07/14/2018 11:40 AM EST AGE/SEX: 83 years / Female INDICATIONS: Hypoxemia, worsening CLINICAL DATA: This is the patient's subsequent encounter. Patient reports that signs and symptoms h ave been present for 1 week and indicates a pain score of Nonresponsive. MEDICAL/SURGICAL HISTORY: Non-responsive. Non-responsive. COMPARISON: C, CHEST 1V SINGLE AP, 07/13/2018. . FINDINGS: Right neck central line is stable in position. There is worsening bilateral primarily perihilar and b asilar parenchymal opacity and hazy basilar density suggestive of layering effusions. Visualized card iac contours are grossly unchanged. CONCLUSION: Worsening aeration Electronically signed by: Lyndon Byrnes MD Board Certified Radiologist 07/14/2018 11:43 AM EST
[2018-07-14] MEDS ORDERED: Potassium Chlor 40 mEq Premix 40 MEQ/100 ML PIGGYBACK IV.SIG ONE (12:00)
[2018-07-14] MEDS ORDERED: Magnesium Sulfate Inj 2 GM in Sodium Chlor 0.9% Inj 96 ML IV.SIG ONE (12:00)
[2018-07-14] MEDS ORDERED: Potassium Phosphate Inj 30 MMOL in Sodium Chlor 0.9% Inj 250 ML IV.SIG ONE (12:00)
--- NOTE | 2018-07-14 13:27 | ECHRPT ---
Indication: HEART FAILURE CONCLUSIONS Normal left ventricular size. Wall thickness is normal. The left ventricular systolic function is mildly reduced with an estimated ejection fraction in the range of 50%. The right ventricular systoilc function is mildly decreased. The left atrial size is moderately dilated. There is evidence of increased left atrial pressure. Lbzjrakw-vz-[id number] mitral valve regurgitation. Mitral annular calcification is present. Aortic valve sclerosis is present. Trace aortic valve regurgitation. There is moderate to severe tricuspid valve regurgitation. There is estimated severe pulmonary hypertension present ( 77 mmHg). A moderate size left sided pleural effusion is noted. BP: / HR: Rhythm: MEASUREMENTS (Male / Female) Normal Values Technical Quality: 2D ECHO LV Diastolic Diameter PLAX 5.1 cm 4.2 - 5.9 / 3.9 - 5.3 cm LV Systolic Diameter PLAX 4.0 cm IVS Diastolic Thickness 0.8 cm 0.6 - 1.0 / 0.6 - 0.9 cm LVPW Diastolic Thickness 0.5 cm 0.6 - 1.0 / 0.6 - 0.9 cm LV Relative Wall Thickness 0.3 LA Systolic Diameter LX 4.5 cm 3.0 - 4.0 / 2.7 - 3.8 cm LV Ejection Fraction MOD BP 49.4 % >= 55 % LV Ejection Fraction MOD 4C 47.4 % LV Ejection Fraction 4C AL 47.8 % LV Ejection Fraction MOD 2C 53.9 % LV Ejection Fraction 2C AL 54.4 % LA Volume Index 60.9 cm/m 16 - 28 cm/m DOPPLER TR Peak Velocity 410.0 cm/s TR Peak Gradient 67.2 mmHg Right Atrial Pressure 10.0 mmHg Pulmonary Artery Systolic Pressu 77.2 mmHg Right Ventricular Systolic Press 77.2 mmHg FINDINGS LEFT VENTRICLE Normal left ventricular size. Wall thickness is normal. The left ventricular systolic function is mildly reduced with an estimated ejection fraction in the range of 50%. RIGHT VENTRICLE The right ventricular systoilc function is mildly decreased. LEFT ATRIUM The left atrial size is moderately dilated. There is evidence of increased left atrial pressure. RIGHT ATRIUM The right atrial size is normal. ATRIAL SEPTUM Normal atrial septal thickness without atrial level shunting by limited color doppler interrogation. AORTA The aortic root and proximal ascending aorta are normal in size on limited imaging. MITRAL VALVE Fiyqzqlr-lx-qcklqm mitral valve regurgitation. Mitral annular calcification is present. AORTIC VALVE Aortic valve sclerosis is present. Trace aortic valve regurgitation. TRICUSPID VALVE There is moderate to severe tricuspid valve regurgitation. There is estimated severe pulmonary hypertension present ( 77 mmHg). PULMONARY VALVE No pulmonary valve regurgitation or stenosis. VESSELS The inferior vena cava is normal in size. PERICARDIUM A moderate left sided pleural effusion is noted. Khoa Oquendo (Electronically Signed) Final Date:14 July 2018 13:27
--- NOTE | 2018-07-14 14:54 | P.PNGI ---
Subjective Interval history: Patient resting soundly Awakens easily Post EGD colonoscopy No reported bleeding Denies abdominal pain Physical Exam Vital signs: Vital Signs 07/13/18 15:00 07/13/18 15:15 07/13/18 15:30 Temperature Pulse Rate 85 85 84 Respiratory Rate 17 16 16 Blood Pressure 131/62 132/64 139/67 Pulse Oximetry 96 94 L 95 07/13/18 15:45 07/13/18 15:55 07/13/18 16:00 Temperature 97.8 F Pulse Rate 87 90 Respiratory Rate 17 Blood Pressure 142/67 H Pulse Oximetry 95 95 97 07/13/18 16:08 07/13/18 16:17 07/13/18 16:38 Temperature 99.0 F Pulse Rate 86 83 Respiratory Rate 28 H 26 H Blood Pressure 157/67 H 157/69 H 155/72 H Pulse Oximetry 93 L 93 L 99 07/13/18 16:53 07/13/18 17:00 07/13/18 17:08 Temperature Pulse Rate 84 84 85 Respiratory Rate 28 H 27 H 29 H Blood Pressure 152/70 H 155/72 H Pulse Oximetry 99 99 98 07/13/18 17:23 07/13/18 17:38 07/13/18 17:53 Temperature Pulse Rate 85 87 89 Respiratory Rate 28 H 26 H 28 H Blood Pressure 148/69 H 152/72 H 150/67 H Pulse Oximetry 100 99 97 07/13/18 18:00 07/13/18 19:00 07/13/18 20:00 Temperature 100.4 F H Pulse Rate 88 92 H 108 H Respiratory Rate 31 H 26 H 26 H Blood Pressure 154/72 H 155/67 H 130/68 Pulse Oximetry 98 93 L 99 07/13/18 21:00 07/13/18 22:00 07/13/18 23:00 Temperature Pulse Rate 83 79 81 Respiratory Rate 26 H 26 H 30 H Blood Pressure 138/65 127/60 129/61 Pulse Oximetry 99 97 97 07/13/18 23:53 07/14/18 00:00 07/14/18 01:00 Temperature 100.5 F H Pulse Rate 77 81 87 Respiratory Rate 20 30 H 30 H Blood Pressure 122/60 121/58 L Pulse Oximetry 97 97 07/14/18 02:00 07/14/18 03:00 07/14/18 04:00 Temperature 99.2 F Pulse Rate 81 81 81 Respiratory Rate 30 H 28 H 26 H Blood Pressure 125/60 137/60 135/63 Pulse Oximetry 97 96 96 07/14/18 04:06 07/14/18 05:00 07/14/18 06:00 Temperature Pulse Rate 81 92 H 86 Respiratory Rate 17 26 H 26 H Blood Pressure 135/62 135/63 Pulse Oximetry 97 99 07/14/18 07:00 07/14/18 08:00 07/14/18 08:40 Temperature 99.4 F Pulse Rate 80 82 Respiratory Rate 25 H 26 H Blood Pressure 126/62 133/63 Pulse Oximetry 98 96 97 07/14/18 09:00 07/14/18 10:00 07/14/18 11:00 Temperature Pulse Rate 87 85 82 Respiratory Rate 27 H 27 H 27 H Blood Pressure 134/63 132/83 136/60 Pulse Oximetry 94 L 97 95 07/14/18 11:14 07/14/18 11:39 07/14/18 12:00 Temperature 98.6 F Pulse Rate 84 87 Respiratory Rate 25 H 25 H Blood Pressure 143/65 H 159/67 H Pulse Oximetry 92 L 97 96 07/14/18 13:00 07/14/18 13:41 07/14/18 14:00 Temperature Pulse Rate 83 127 H 113 H Respiratory Rate 26 H 25 H 26 H Blood Pressure 143/72 H 143/72 H Pulse Oximetry 94 L 96 96 Intake & Output 07/13/18 07/14/18 07/14/18 18:59 06:59 18:59 Intake Total 700 / 700 695 / 695 100 / 100 Output Total 600 / 600 2000 / 1999 Balance 100 / 100 -1305 / -1305 100 / 100 Weight 69.1 kg Intake: IV 300 / 300 455 / 455 100 / 100 KCl 20 mEq Premix Inj 20 meq In 200 / 200 200 / 200 100 ml @ 50 mls/hr IV.SIG Q2H [facility] Rx#:[id number] Potassium Phosphate Inj 15 MMOL 155 / 155 In NS Inj 150 ML @ 38.75 mls/ hr IV.SIG ONCE ONE Rx#:[id number] Flagyl 500 MG Inj 100 ML @ 100 100 / 100 100 / 100 100 / 100 mls/hr IV.SIG Q8H [facility] Rx#: [id number] Oral 240 / 240 Anesthesia Amount 400 / 400 Output: Urine Amount (Catheter) 600 / 600 1999 Indwelling Urethral Catheter 600 / 600 1999 Other: Date of Last Bowel Movement 07/13/18 07/13/18 07/13/18 # Bowel Movements 0 - Constitutional no acute distress, chronically ill appearing - Routine HEENT Exam Head: Present: normocephalic - Routine Respiratory Exam Present: accessory muscle use, crackles - Routine Cardiovascular Exam Present: RRR - Routine Abdominal Exam Present: soft, normoactive bowel sounds. Absent: tenderness, distended - Routine Extremities Exam Absent: edema - Routine Skin Exam Present: dry, warm - Routine Neurological Exam Present: alert - Urinary Catheter Management Indwelling Urethral Catheter Cath placed during this visit: yes Reason for continuing: Hourly intake/output Insertion date: 07/13/18 Insertion time: 14:30 Results - Labs CBC & Chem 7: 07/14/18 06:30 07/14/18 00:40 Laboratory Results - last 24 hr 07/13/18 07/13/18 07/13/18 06:21 18:10 18:10 WBC RBC Hgb Hct MCV MCH MCHC RDW Plt Count MPV Prelim Diff (Auto) Neut % (Auto) Lymph % (Auto) Miner % (Auto) Eos % (Auto) Baso % (Auto) Neut # (Auto) Lymph # (Auto) Miner # (Auto) Eos # (Auto) Baso # (Auto) WBC Differential Seg Neuts % (Manual) Band Neuts % (Manual) Lymphocytes % (Manual) Monocytes % (Manual) Myelocytes % (Man) Abs Neuts (Manual) Differential Comment Toxic Granulation Platelet Estimate Platelet Morphology Sodium Potassium 3.6 Chloride Carbon Dioxide Anion Gap BUN Creatinine Estimated GFR POC Glucose Random Glucose Calcium Calcium Adj for Albumin Phosphorus 1.2 L Magnesium Total Creatine Kinase 105 Cancelled Troponin I 0.10 H Cancelled B-Natriuretic Peptide 687 H Albumin 07/14/18 07/14/18 07/14/18 00:40 06:30 06:30 WBC 16.7 H RBC 3.16 L Hgb 10.3 L Hct 29.8 L MCV 94.0 MCH 32.5 MCHC 34.6 RDW 14.8 Plt Count 195 MPV 7.4 Prelim Diff (Auto) Slide review pending Neut % (Auto) 87.6 H Lymph % (Auto) 2.7 L Miner % (Auto) 9.4 H Eos % (Auto) 0.1 Baso % (Auto) 0.2 Neut # (Auto) 14.6 H Lymph # (Auto) 0.5 L Miner # (Auto) 1.6 H Eos # (Auto) 0.0 Baso # (Auto) 0.0 WBC Differential Manual diff final Seg Neuts % (Manual) 80 H Band Neuts % (Manual) 5 Lymphocytes % (Manual) 8 L Monocytes % (Manual) 6 Myelocytes % (Man) 1 H Abs Neuts (Manual) 14.4 H Differential Comment . Toxic Granulation 1+ H Platelet Estimate Normal Platelet Morphology Normal Sodium 138 Potassium 3.4 L Chloride 103 Carbon Dioxide 26.0 Anion Gap 9 BUN 8 Creatinine 0.79 Estimated GFR 70 L POC Glucose Random Glucose 119 H Calcium 7.3 L* Calcium Adj for Albumin 8.5 Phosphorus 1.2 L Magnesium 1.5 Total Creatine Kinase 75 Troponin I 0.07 H B-Natriuretic Peptide 361 H Albumin 2.5 L 07/14/18 07/14/18 06:30 09:49 WBC RBC Hgb Hct MCV MCH MCHC RDW Plt Count MPV Prelim Diff (Auto) Neut % (Auto) Lymph % (Auto) Miner % (Auto) Eos % (Auto) Baso % (Auto) Neut # (Auto) Lymph # (Auto) Miner # (Auto) Eos # (Auto) Baso # (Auto) WBC Differential Seg Neuts % (Manual) Band Neuts % (Manual) Lymphocytes % (Manual) Monocytes % (Manual) Myelocytes % (Man) Abs Neuts (Manual) Differential Comment Toxic Granulation Platelet Estimate Platelet Morphology Sodium Potassium Chloride Carbon Dioxide Anion Gap BUN Creatinine Estimated GFR POC Glucose 141 H Random Glucose Calcium Calcium Adj for Albumin Phosphorus Magnesium Total Creatine Kinase 59 Troponin I 0.06 H B-Natriuretic Peptide Albumin Microbiology 07/08/18 20:00 Blood - Peripheral Aerobic Blood Culture - Final No growth in 5 days 07/08/18 20:00 Blood - Peripheral Anaerobic Blood Culture - Final No growth in 5 days 07/08/18 20:05 Blood - Peripheral Aerobic Blood Culture - Final No growth in 5 days 07/08/18 20:05 Blood - Peripheral Anaerobic Blood Culture - Final No growth in 5 days - Imaging Impressions Chest X-Ray 07/14/18 00:00 CONCLUSION: Worsening aeration Assessment and Plan - Plan - Sepsis/syncopal episode/ anemia/heme (+) stools- Patient has been having trouble moving her bowels, reports that she gave herself 2 rectal suppositories and took a lot of laxatives in order to move her bowels. Shortly after, patient had a syncopal episode before she can make it to the bathroom. States stools were all liquid at that time. Patient is on Eliquis 5 mg twice daily. hgb is dropping. No obvious bleeding reported. WBC elevated but trending down. Blood cx negative so far. LFTs and lipase wnl. CT done with no evidence of colitis or acute findings. Stools negative for C-diff. Colonoscopy was done 4 yrs ago by report - Anemia/heme (+) stools- hgb stabilized. no bleeding reported, pt is on Eliquis which could be the culprit - Sepsis- on Flagyl, WBC today is rising . Blood cx negative so far. Ct no evidence of colitis Stools negative for C-diff - Hypokalemia- K 2.9, per CCM - PMHx Afib s/p ablation ( on eliquis) , HTN and hypothyroidism 07/14/2018 Heme positive stools-indication for endoscopy Patient resting soundly, awakens easily. No reported bleeding 07/13/2018 EGD revealed the following= The esophagus appeared normal Large hiatal hernia The mucosa of the stomach appeared normal Normal duodenal mucosa in the duodenal bulb and 2nd part duodenum 07/13/2018 colonoscopy revealed the following= Large internal hemorrhoids There was severe diverticulosis noted in the sigmoid colon and descending colon Poor bowel prep. limited the exam, no large masses or polyps seen. -Discussed the above findings with patient who verbalized understanding -Hemoglobin 10.3 hematocrit 29.8 stable Plan -Cardiac [id number] diet (Diverticulosis) -Critical care medicine to determine plan of care -No nuts seeds or popcorn -Poor prep-recommend repeat colonoscopy in 1 year -Monitor for bleeding -Monitor hemoglobin and hematocrit -Supportive care -GI will sign off at this time, please notify for any further needs This patient has been seen by myself and Dr. Fonseca and this note is written on his behalf - Attending Attestation Dr. Fonseca
[2018-07-14] MEDS: ALPRAZolam 0.25 MG Tablet PO PRN (18:00)
--- NOTE | 2018-07-14 20:04 | P.PNCA ---
Subjective Interval history: Still with labored breathing Diuresed well yesterday No chest pain Feels better up to the chair Medications and Allergies Active Medications: Active Medications Acetaminophen (Tylenol) 650 mg PO Q4H PRN PRN Reason: Temp > 100.4 Albuterol (Albuterol Neb (Prn)) 2.5 mg NEB ONCE PRN PRN Reason: SHORTNESS OF BREATH Last Admin: 07/12/18 16:10 Dose: 2.5 mg Albuterol (Duoneb Neb (Keith)) 1 ampul NEB Q4HR NEB [facility] Last Admin: 07/14/18 19:23 Dose: 1 ampul Alprazolam (Xanax) 0.25 mg PO Q12H PRN PRN Reason: ANXIETY Last Admin: 07/14/18 18:00 Dose: 0.25 mg Apixaban (Eliquis) 5 mg PO BID [facility] Last Admin: 07/14/18 08:59 Dose: 5 mg Flecainide Acetate (Tambocor) 100 mg PO BID [facility] Last Admin: 07/14/18 08:59 Dose: 100 mg Furosemide (Lasix Inj) 60 mg IV.PUSH Q12H [facility] Last Admin: 07/14/18 13:29 Dose: 60 mg Hydromorphone HCl (Dilaudid Pf Inj) 0.5 mg IV.PUSH ONCE PRN PRN Reason: ABDOMINAL PAIN Last Admin: 07/09/18 00:54 Dose: 0.5 mg Metronidazole/Sodium Chloride (Flagyl 500 Mg Inj) 100 mls @ 100 mls/hr IV.SIG Q8H [facility] Last Infusion: 07/14/18 16:40 Dose: Infused Lactated Ringer's (Lr 1000 Ml Inj) 1,000 mls @ 30 mls/hr IV.SIG .Q24H [facility] Sodium Chloride (Ns Inj) 500 mls @ 30 mls/hr IV.SIG .Q10H [facility] Cefepime HCl 2,000 mg/ Sodium (Chloride) 100 mls @ 200 mls/hr IV.SIG Q8H [facility] Last Infusion: 07/14/18 15:09 Dose: Infused Levothyroxine Sodium (Synthroid) 50 mcg PO DAILY@0600 [facility] Last Admin: 07/14/18 05:14 Dose: 50 mcg Ondansetron HCl (Zofran Inj) 4 mg IV.PUSH Q6H PRN PRN Reason: NAUSEA OR VOMITING Last Admin: 07/12/18 21:03 Dose: 4 mg Patch Removal (Remove Old Patch) 1 each T-DERMAL Q7D [facility] Last Admin: 07/12/18 17:38 Dose: 1 each Potassium Chloride (K-Dur) 20 meq PO DAILY [facility] Last Admin: 07/14/18 08:59 Dose: 20 meq Sodium Chloride (Ns Flush) 2 ml IV.FLUSH BID [facility] Last Admin: 07/14/18 08:59 Dose: 2 ml Sodium Chloride (Ns Flush) 2 ml IV.FLUSH PRN PRN PRN Reason: FLUSH AFTER USING IV ACCESS Allergies Allergy/AdvReac Type Severity Reaction Status Date / Time cefaclor Allergy Severe RASH Verified 07/04/18 09:33 paroxetine Allergy Severe Rash Verified 07/04/18 09:33 Sulfa (Sulfonamide Allergy Severe RASH Verified 07/04/18 09:33 Antibiotics) ciprofloxacin Allergy Unknown GI UPSET Verified 07/04/18 09:33 clonidine Allergy Unknown SKIN Verified 07/04/18 09:33 IRRITATION latex bandages AdvReac Mild SKIN Uncoded 07/02/18 10:47 REDNESS, RASH Home Medications Medication Instructions Recorded Confirmed Type alprazolam 0.25 mg PO BID PRN 05/18/18 07/08/18 History amiodarone 200 mg PO DAILY 05/18/18 07/08/18 History apixaban [Eliquis] 5 mg PO BID 05/18/18 07/08/18 History estradiol 0.5 mg PO WEEKLY 05/18/18 07/08/18 History levothyroxine 50 mcg PO DAILY 05/18/18 07/08/18 History potassium chloride 20 meq PO DAILY 05/18/18 07/08/18 History Physical Exam Vital signs: Vital Signs 07/13/18 21:00 07/13/18 22:00 07/13/18 23:00 Temperature Pulse Rate 83 79 81 Respiratory Rate 26 H 26 H 30 H Blood Pressure 138/65 127/60 129/61 Pulse Oximetry 99 97 97 07/13/18 23:53 07/14/18 00:00 07/14/18 01:00 Temperature 100.5 F H Pulse Rate 77 81 87 Respiratory Rate 20 30 H 30 H Blood Pressure 122/60 121/58 L Pulse Oximetry 97 97 07/14/18 02:00 07/14/18 03:00 07/14/18 04:00 Temperature 99.2 F Pulse Rate 81 81 81 Respiratory Rate 30 H 28 H 26 H Blood Pressure 125/60 137/60 135/63 Pulse Oximetry 97 96 96 07/14/18 04:06 07/14/18 05:00 07/14/18 06:00 Temperature Pulse Rate 81 92 H 86 Respiratory Rate 17 26 H 26 H Blood Pressure 135/62 135/63 Pulse Oximetry 97 99 07/14/18 07:00 07/14/18 08:00 07/14/18 08:40 Temperature 99.4 F Pulse Rate 80 82 Respiratory Rate 25 H 26 H Blood Pressure 126/62 133/63 Pulse Oximetry 98 96 97 07/14/18 09:00 07/14/18 10:00 07/14/18 11:00 Temperature Pulse Rate 87 85 82 Respiratory Rate 27 H 27 H 27 H Blood Pressure 134/63 132/83 136/60 Pulse Oximetry 94 L 97 95 07/14/18 11:14 07/14/18 11:39 07/14/18 12:00 Temperature 98.6 F Pulse Rate 84 87 Respiratory Rate 25 H 25 H Blood Pressure 143/65 H 159/67 H Pulse Oximetry 92 L 97 96 07/14/18 13:00 07/14/18 13:41 07/14/18 14:00 Temperature Pulse Rate 83 127 H 113 H Respiratory Rate 26 H 25 H 26 H Blood Pressure 143/72 H 143/72 H Pulse Oximetry 94 L 96 96 07/14/18 14:41 07/14/18 15:00 07/14/18 15:41 Temperature Pulse Rate 86 87 90 Respiratory Rate 25 H 19 25 H Blood Pressure 139/65 139/65 147/65 H Pulse Oximetry 96 95 95 07/14/18 16:00 07/14/18 16:41 07/14/18 16:56 Temperature 98.2 F Pulse Rate 87 87 85 Respiratory Rate 25 H 20 21 Blood Pressure 147/65 H 132/60 Pulse Oximetry 97 98 07/14/18 17:00 07/14/18 17:41 07/14/18 18:00 Temperature Pulse Rate 85 84 87 Respiratory Rate 21 27 H 25 H Blood Pressure 132/61 Pulse Oximetry 100 95 90 L 07/14/18 19:26 Temperature Pulse Rate 77 Respiratory Rate 26 H Blood Pressure Pulse Oximetry 97 Intake & Output 07/14/18 07/14/18 07/15/18 06:59 18:59 06:59 Intake Total 695 / 695 1220 / 1220 Output Total 1999 Balance -1305 / -1305 -830 / -830 Weight 69.1 kg Intake: IV 455 / 455 500 / 500 Maxipime Inj 2,000 MG In NS Inj 100 / 100 100 ML @ 200 mls/hr IV.SIG Q8H [facility] Rx#:[id number] Magnesium Sulfate Inj 2 GM In 100 / 100 NS Inj 96 ML @ 50 mls/hr IV.SIG ONCE ONE Rx#:[id number] KCl 20 mEq Premix Inj 20 meq In 200 / 200 100 ml @ 50 mls/hr IV.SIG Q2H [facility] Rx#:[id number] KCl 40 mEq Premix Inj 40 meq In 100 / 100 100 ml @ 25 mls/hr IV.SIG ONCE ONE Rx#:[id number] Potassium Phosphate Inj 15 MMOL 155 / 155 In NS Inj 150 ML @ 38.75 mls/ hr IV.SIG ONCE ONE Rx#:[id number] Flagyl 500 MG Inj 100 ML @ 100 100 / 100 200 / 200 mls/hr IV.SIG Q8H [facility] Rx#: [id number] Oral 240 / 240 720 / 720 Output: Urine Amount (Catheter) 1999 Indwelling Urethral Catheter 1999 Other: Date of Last Bowel Movement 07/13/18 07/13/18 # Bowel Movements 0 Narrative: GENERAL: Elderly appearing female, sitting up in bed on non-rebreather. SKIN: Warm and dry. Multiple ecchymoses over bilateral shins and arms. HEAD: Normocephalic. CARDIOVASCULAR: regular rhythm and rate. 3/6 holosystolic murmur at the apex RESPIRATORY: Crackles in bilateral lobes, air flow limited. GASTROINTESTINAL: Abdomen soft and nontender in any quadrant. Normal bowel sounds appreciated. Nondistended. MUSCULOSKELETAL: No cyanosis, or edema. Moves all extremities spontaneously. - Urinary Catheter Management Indwelling Urethral Catheter Cath placed during this visit: yes Reason for continuing: Hourly intake/output Insertion date: 07/13/18 Insertion time: 14:30 Results 07/14/18 06:30 07/14/18 00:40 Cardiac Enzymes 07/13/18 07/13/18 07/13/18 Range/Units 06:21 06:21 18:10 AST 73 H (15-37) U/L Troponin I 0.10 H (0.02-0.05) ng/mL B-Natriuretic Peptide 687 H (0-100) pg/mL 07/13/18 07/14/18 07/14/18 Range/Units 18:10 00:40 06:30 AST (15-37) U/L Troponin I Cancelled 0.07 H (0.02-0.05) ng/mL B-Natriuretic Peptide 361 H (0-100) pg/mL 07/14/18 Range/Units 06:30 AST (15-37) U/L Troponin I 0.06 H (0.02-0.05) ng/mL B-Natriuretic Peptide (0-100) pg/mL Coagulation 07/13/18 07/14/18 Range/Units 06:21 06:30 B-Natriuretic Peptide 687 H 361 H (0-100) pg/mL CBC 07/13/18 07/14/18 Range/Units 06:21 06:30 WBC 16.1 H 16.7 H (4.0-11.0) th/mm3 RBC 3.37 L 3.16 L (4.00-5.30) mil/mm3 Hgb 11.1 L 10.3 L (11.6-15.3) gm/dL Hct 31.2 L 29.8 L (35.0-46.0) % Plt Count 218 195 (150-450) th/mm3 Neut # (Auto) 13.7 H 14.6 H (1.8-7.7) th/mm3 Lymph # (Auto) 0.9 L 0.5 L (1.0-4.8) th/mm3 [place] # (Auto) 1.5 H 1.6 H (0.0-0.9) th/mm3 Eos # (Auto) 0.0 0.0 (0.0-0.4) th/mm3 Baso # (Auto) 0.0 0.0 (0.0-0.2) th/mm3 Comprehensive Metabolic Panel 07/13/18 07/13/18 07/13/18 Range/Units 06:21 09:36 18:10 Sodium 137 (136-145) meq/L Potassium 2.8 L* 3.0 L 3.6 (3.5-5.1) meq/L Chloride 104 (98-107) meq/L Carbon Dioxide 23.7 (21.0-32.0) meq/L BUN 8 (7-18) mg/dL Creatinine 0.65 (0.50-1.00) mg/dL Calcium 7.6 L (8.5-10.1) mg/dL AST 73 H (15-37) U/L ALT 246 H (10-53) U/L Alkaline Phosphatase 89 (45-117) U/L Total Protein 5.7 L (6.4-8.2) g/dL Albumin 2.8 L (3.4-5.0) g/dL 07/14/18 Range/Units 00:40 Sodium 138 (136-145) meq/L Potassium 3.4 L (3.5-5.1) meq/L Chloride 103 (98-107) meq/L Carbon Dioxide 26.0 (21.0-32.0) meq/L BUN 8 (7-18) mg/dL Creatinine 0.79 (0.50-1.00) mg/dL Calcium 7.3 L* (8.5-10.1) mg/dL AST (15-37) U/L ALT (10-53) U/L Alkaline Phosphatase (45-117) U/L Total Protein (6.4-8.2) g/dL Albumin 2.5 L (3.4-5.0) g/dL Intake and Output 07/14/18 07/14/18 07/14/18 06:59 14:59 22:59 Intake Total 440 / 440 100 / 100 1120 / 1120 Output Total 1999 / 1999 Balance -1560 / -1560 100 / 100 -930 / -930 Intake: IV 200 / 200 100 / 100 400 / 400 Maxipime Inj 2,000 MG In NS Inj 100 / 100 100 ML @ 200 mls/hr IV.SIG Q8H [facility] Rx#:[id number] Magnesium Sulfate Inj 2 GM In 100 / 100 NS Inj 96 ML @ 50 mls/hr IV.SIG ONCE ONE Rx#:[id number] KCl 20 mEq Premix Inj 20 meq In 100 / 100 100 ml @ 50 mls/hr IV.SIG Q2H [facility] Rx#:[id number] KCl 40 mEq Premix Inj 40 meq In 100 / 100 100 ml @ 25 mls/hr IV.SIG ONCE ONE Rx#:[id number] Flagyl 500 MG Inj 100 ML @ 100 100 / 100 100 / 100 100 / 100 mls/hr IV.SIG Q8H [facility] Rx#: [id number] Oral 240 / 240 720 / 720 Output: Urine Amount (Catheter) 1999 Indwelling Urethral Catheter 1999 Other: Date of Last Bowel Movement 07/13/18 07/13/18 07/13/18 # Bowel Movements 0 Weight 69.1 kg - Imaging and Cardiology Imaging: Impressions Chest X-Ray 07/13/18 00:00 CONCLUSION: 1. Bilateral perihilar infiltrates consistent with moderate to severe pulmonary edema versus pneumonia. Clinical correlation is recommended. 2. Cardiomegaly. 3. Small bilateral pleural effusions. 4. Right internal jugular central line has its tip in superior vena cava. There is no pneumothorax. Chest X-Ray 07/14/18 00:00 CONCLUSION: Worsening aeration Assessment and Plan - Assessment (1) Bradycardia Code(s): R00.1 - Bradycardia, unspecified Status: Acute (2) Colitis Code(s): K52.9 - Noninfective gastroenteritis and colitis, unspecified Status : Acute (3) Afib Code(s): I48.91 - Unspecified atrial fibrillation Status: Acute (4) Hypertension Code(s): I10 - Essential (primary) hypertension Status: Acute (5) Hypothyroid Code(s): E03.9 - Hypothyroidism, unspecified Status: Acute (6) Anxiety Code(s): F41.9 - Anxiety disorder, unspecified Status: Acute (7) SKY (acute kidney injury) Code(s): N17.9 - Acute kidney failure, unspecified Status: Acute (8) Sepsis associated hypotension Code(s): A41.9 - Sepsis, unspecified organism; I95.9 - Hypotension, unspecified Status: Resolved - Plan 1. Abdominal pain, which appears to be due to colitis. Clinically better 2. Sepsis. Resolved, most likely secondary to colitis 3. Hypotension responsive to IV fluids. Resolved 4. Acute bradycardia secondary to medications. Amiodarone stopped Con't Flecainide Metoprolol held Con't to follow rates for now, currently stable 5. Difficult to control atrial fibrillation with history of atrial fibrillation ablation x2 and atrial flutter ablation x1. Con't Flecainide for now, want to avoid Afib with RVR as possible Eliquis 6. Previous hypothermia. 7. Acute kidney injury. 8. Flash pulmonary edema EKG with minimal changes, similar to previous Most likely due to known moderate to severe MR Troponins minimal and decreasing, most likely type 2 Repeat echo with no significant change Overall feel this is not due to coronary artery disease, but most likely her mitral regurgitation Left pleural effusion Discussed with critical care, for now attempt to continue to diurese her and may need thoracentesis for pleural effusion
[2018-07-14 22:10] LABS: Calcium 7.5 mg/dL (8.5-10.1); Carbon Dioxide 27.3 meq/L (21.0-32.0); Potassium 4.4 meq/L (3.5-5.1)
[2018-07-15] MEDS: Levothyroxine 50 MCG Tablet PO SCH (05:06)
[2018-07-15 05:30] LABS: Calcium 7.4 mg/dL (8.5-10.1); Carbon Dioxide 28.7 meq/L (21.0-32.0); Magnesium 1.6 mg/dL (1.5-2.5); Phosphorus 1.7 mg/dL (2.5-4.9); Potassium 3.1 meq/L (3.5-5.1)
[2018-07-15 05:42] LABS: Albumin 2.3 g/dL (3.4-5.0); Calcium-Albumin Corrected 8.8 mg/dL (8.5-10.1)
[2018-07-15] MEDS ORDERED: Potassium Chlor 40 mEq Premix 40 MEQ/100 ML PIGGYBACK IV.SIG ONE (07:00)
--- NOTE | 2018-07-15 07:07 | P.PNCC ---
Subjective Subjective Remarks/Hospital Course: 07/10: Afebrile. Patient awake and alert. Overnight heart rate range 48-60's. Flecainide dose was held last p.m. and review of the MAR. Today the patient was noted to be sustaining a MAP 60-61, patient received 250 cc 5% albumin and remained normotensive. Patient tolerating clear liquid diet. 07/11: Patient hemodynamically stable heart rate 50s-70s. Patient continues on flecainide. She was noted to have a positive stool for occult blood yesterday afternoon GI was consulted per plans for panendoscopy in the near future peer Eliquis was placed on hold. The patient was noted to have a low potassium level this a.m. 20 mEq IV was provided along with additional scheduled dosing of p.o. potassium. 07/13: The patient developed hypoxemic respiratory failure today and is being transferred to the intensive care unit for a higher level of care. Results of the endoscopies presently not available, but will review. Chest x-ray looks like pulmonary edema with bilateral hilar congestion and prominent pulmonary veins. 07/14: Persistent hypoxemia today with labored breathing. Diuresis over 2 L yesterday however respiratory status remains compromised. Multiple electrolyte abnormalities, now being replaced. She has remained in sinus rhythm. 07/15: Requiring less concentrated oxygen this morning. Negative fluid balance for 2 days now without worsening renal function. Persistent leukocytosis concerning but she remains afebrile. We will continue to treat this is simple fluid overload but I think it is worth continuing to cover her for bacterial pneumonia. Objective Vital Signs / I&O: Vital Signs 07/14/18 08:00 07/14/18 08:40 07/14/18 09:00 Temperature 99.4 F Pulse Rate 82 87 Respiratory Rate 26 H 27 H Blood Pressure 133/63 134/63 Pulse Oximetry 96 97 94 L 07/14/18 10:00 07/14/18 11:00 07/14/18 11:14 Temperature Pulse Rate 85 82 Respiratory Rate 27 H 27 H Blood Pressure 132/83 136/60 Pulse Oximetry 97 95 92 L 07/14/18 11:39 07/14/18 12:00 07/14/18 13:00 Temperature 98.6 F Pulse Rate 84 87 83 Respiratory Rate 25 H 25 H 26 H Blood Pressure 143/65 H 159/67 H Pulse Oximetry 97 96 94 L 07/14/18 13:41 07/14/18 14:00 07/14/18 14:41 Temperature Pulse Rate 127 H 113 H 86 Respiratory Rate 25 H 26 H 25 H Blood Pressure 143/72 H 143/72 H 139/65 Pulse Oximetry 96 96 96 07/14/18 15:00 07/14/18 15:41 07/14/18 16:00 Temperature 98.2 F Pulse Rate 87 90 87 Respiratory Rate 19 25 H 25 H Blood Pressure 139/65 147/65 H 147/65 H Pulse Oximetry 95 95 97 07/14/18 16:41 07/14/18 16:56 07/14/18 17:00 Temperature Pulse Rate 87 85 85 Respiratory Rate 20 21 21 Blood Pressure 132/60 Pulse Oximetry 98 100 07/14/18 17:41 07/14/18 18:00 07/14/18 19:00 Temperature Pulse Rate 84 87 77 Respiratory Rate 27 H 25 H 28 H Blood Pressure 132/61 126/60 Pulse Oximetry 95 90 L 98 07/14/18 19:26 07/14/18 20:00 07/14/18 21:00 Temperature Pulse Rate 77 83 82 Respiratory Rate 26 H 25 H 28 H Blood Pressure 134/63 133/61 Pulse Oximetry 97 91 L 94 L 07/14/18 22:00 07/14/18 23:00 07/14/18 23:10 Temperature Pulse Rate 83 79 78 Respiratory Rate 28 H 27 H 24 Blood Pressure 129/60 133/63 Pulse Oximetry 91 L 95 94 L 07/15/18 00:00 07/15/18 01:00 07/15/18 02:00 Temperature Pulse Rate 80 81 78 Respiratory Rate 24 25 H 25 H Blood Pressure 133/60 133/60 120/60 Pulse Oximetry 97 95 98 07/15/18 03:00 07/15/18 03:11 07/15/18 03:13 Temperature Pulse Rate 81 80 Respiratory Rate 21 26 H Blood Pressure 117/59 L Pulse Oximetry 92 L 94 L 07/15/18 04:00 07/15/18 05:00 07/15/18 06:00 Temperature Pulse Rate 82 106 H 106 H Respiratory Rate 23 20 30 H Blood Pressure 124/60 131/62 123/66 Pulse Oximetry 95 92 L 93 L Intake & Output 07/14/18 07/15/18 07/15/18 18:59 06:59 18:59 Intake Total 1220 / 1220 1040 / 1040 Output Total 2049 1400 / 1400 Balance -830 / -830 -360 / -360 Weight 69.3 kg Intake: IV 500 / 500 560 / 560 Maxipime Inj 2,000 MG In NS Inj 100 / 100 200 / 200 100 ML @ 200 mls/hr IV.SIG Q8H [facility] Rx#:[id number] Magnesium Sulfate Inj 2 GM In 100 / 100 NS Inj 96 ML @ 50 mls/hr IV.SIG ONCE ONE Rx#:[id number] KCl 40 mEq Premix Inj 40 meq In 100 / 100 100 ml @ 25 mls/hr IV.SIG ONCE ONE Rx#:[id number] Potassium Phosphate Inj 30 MMOL 260 / 260 In NS Inj 250 ML @ 43.333 mls/ hr IV.SIG ONCE ONE Rx#:[id number] Flagyl 500 MG Inj 100 ML @ 100 200 / 200 100 / 100 mls/hr IV.SIG Q8H [facility] Rx#: [id number] Oral 720 / 720 480 / 480 Output: Urine Amount (Catheter) 2049 1400 / 1400 Indwelling Urethral Catheter 2049 1400 / 1400 Other: Date of Last Bowel Movement 07/13/18 07/13/18 # Bowel Movements 0 Weight On Admission 69.3 kg Result Diagrams: 07/14/18 06:30 07/15/18 04:44 Objective Remarks: GENERAL: Chronically ill-appearing elderly female SKIN: Warm and dry. Large areas of bruising both arms HEAD: Atraumatic. Normocephalic. EYES: Pupils equal and round. No scleral icterus. No injection or drainage. ENT: No nasal bleeding or discharge. Mucous membranes pink and moist. NECK: Trachea midline. Airway widely patent CARDIOVASCULAR: Normal rate, regular rhythm. RESPIRATORY: Some accessory muscle use is present. Persistent dependent crackles. Dry cough. GASTROINTESTINAL: Abdomen soft, non-tender, nondistended. No guarding. Bowel sounds active MUSCULOSKELETAL: Extremities without clubbing, cyanosis, or edema. Small multiple areas of ecchymotic bruising on forearms, no obvious deformities. NEUROLOGICAL: Awake and alert. RASS 0. No gross focal/sensory deficits. Follows commands in all 4 extremities. Weak Assessment and Plan - Assessment and Plan Plan: Active problems: Severe sepsis Hypotension-resolved acute bradycardia possible amiodarone toxicity hypothermia colitis, unclear etiology acute kidney injury GI bleed Plan Continue high flow oxygen while weaning concentration continue flagyl cefepime iv F/U blood cultures negative c. diff PCR negative 2d echo strict i/o's, limit tap water daily bmp, cbc, mag, phosphorus. Review arrhythmia management with cardiology service Continue aggressive replacement of potassium, magnesium, and phosphorus. Overall impression: Physically and radiographically this appears to be flash pulmonary edema. Her radiographic picture was worse yesterday with considerable pulmonary venous engorgement. We will continue aggressive diuresis at this point and replace electrolytes as needed. We will continue coverage for bacterial pneumonia despite lack of a specific organism. She remains critically ill and may yet require mechanical ventilation. Critical care time 40 minutes
[2018-07-15] MEDS ORDERED: Potassium Phosphate Inj 15 MMOL in Sodium Chlor 0.9% Inj 150 ML IV.SIG ONE (08:00)
[2018-07-15] MEDS ORDERED: Magnesium Sulfate Inj 2 GM in Sodium Chlor 0.9% Inj 96 ML IV.SIG ONE (08:00)
[2018-07-15] MEDS: Flecainide 100 MG Tablet PO SCH ×2 (09:02→21:45)
[2018-07-15] MEDS: ALPRAZolam 0.25 MG Tablet PO PRN ×2 (09:03→21:45)
--- NOTE | 2018-07-15 11:48 | P.PNFP ---
Results - Labs Result diagrams: 07/14/18 06:30 07/15/18 04:44 <Oliver Wilson - 07/15/18 16:06> Abnormal lab results 07/14/18 07/15/18 07/15/18 Range/Units 21:11 04:44 04:44 Sodium 134 L (136-145) meq/L Potassium 3.1 L D (3.5-5.1) meq/L Chloride 97 L (98-107) meq/L Estimated GFR 60 L 57 L (>89) mL/min Random Glucose 131 H 140 H (74-106) mg/dL Calcium 7.5 L 7.4 L* (8.5-10.1) mg/dL Phosphorus 1.7 L (2.5-4.9) mg/dL B-Natriuretic Peptide 216 H (0-100) pg/mL Albumin 2.3 L (3.4-5.0) g/dL [facility] 07/14/18 07/15/18 21:11 04:44 Sodium 134 L 136 Potassium 4.4 D 3.1 L D Chloride 100 97 L Carbon Dioxide 27.3 28.7 BUN 13 14 Creatinine 0.90 0.94 Calcium 7.5 L 7.4 L* Liver Function 07/15/18 Range/Units 04:44 Albumin 2.3 L (3.4-5.0) g/dL <Oliver Wilson - 07/15/18 16:06> Abnormal lab results 07/14/18 07/15/18 07/15/18 Range/Units 21:11 04:44 04:44 Sodium 134 L (136-145) meq/L Potassium 3.1 L D (3.5-5.1) meq/L Chloride 97 L (98-107) meq/L Estimated GFR 60 L 57 L (>89) mL/min Random Glucose 131 H 140 H (74-106) mg/dL Calcium 7.5 L 7.4 L* (8.5-10.1) mg/dL Phosphorus 1.7 L (2.5-4.9) mg/dL B-Natriuretic Peptide 216 H (0-100) pg/mL Albumin 2.3 L (3.4-5.0) g/dL [facility] 07/14/18 07/15/18 21:11 04:44 Sodium 134 L 136 Potassium 4.4 D 3.1 L D Chloride 100 97 L Carbon Dioxide 27.3 28.7 BUN 13 14 Creatinine 0.90 0.94 Calcium 7.5 L 7.4 L* Liver Function 07/15/18 Range/Units 04:44 Albumin 2.3 L (3.4-5.0) g/dL <Louann Gonzalez N - 07/15/18 11:48> - Imaging Impressions Chest CTA 07/15/18 00:00 CONCLUSION: 1. This study is negative for pulmonary embolism. 2. Moderately-sized bilateral pleural effusions. 3. Ground-glass infiltrates are noted bilaterally consistent with mild pulmonary vascular congestion or possible pneumonia. Clinical correlation is recommended. 4. Bibasilar compressive atelectasis. 5. Minimally prominent pretracheal, subcarinal and AP window mediastinal as well as right hilar lymph nodes which are nonspecific. 6. Cardiomegaly and coronary artery calcifications. 7. Small hiatal hernia. <Oliver Wilson - 07/15/18 16:06> Impressions Chest X-Ray 07/14/18 00:00 CONCLUSION: Worsening aeration <Louann Gonzalez N - 07/15/18 11:48> Physical Exam Vital signs: Vital Signs 07/14/18 16:41 07/14/18 16:56 07/14/18 17:00 Temperature Pulse Rate 87 85 85 Respiratory Rate 20 21 21 Blood Pressure 132/60 Pulse Oximetry 98 100 07/14/18 17:41 07/14/18 18:00 07/14/18 19:00 Temperature Pulse Rate 84 87 77 Respiratory Rate 27 H 25 H 28 H Blood Pressure 132/61 126/60 Pulse Oximetry 95 90 L 98 07/14/18 19:26 07/14/18 20:00 07/14/18 21:00 Temperature Pulse Rate 77 83 82 Respiratory Rate 26 H 25 H 28 H Blood Pressure 134/63 133/61 Pulse Oximetry 97 91 L 94 L 07/14/18 22:00 07/14/18 23:00 07/14/18 23:10 Temperature Pulse Rate 83 79 78 Respiratory Rate 28 H 27 H 24 Blood Pressure 129/60 133/63 Pulse Oximetry 91 L 95 94 L 07/15/18 00:00 07/15/18 01:00 07/15/18 02:00 Temperature Pulse Rate 80 81 78 Respiratory Rate 24 25 H 25 H Blood Pressure 133/60 133/60 120/60 Pulse Oximetry 97 95 98 07/15/18 03:00 07/15/18 03:11 07/15/18 03:13 Temperature Pulse Rate 81 80 Respiratory Rate 21 26 H Blood Pressure 117/59 L Pulse Oximetry 92 L 94 L 07/15/18 04:00 07/15/18 05:00 07/15/18 06:00 Temperature Pulse Rate 82 106 H 106 H Respiratory Rate 23 20 30 H Blood Pressure 124/60 131/62 123/66 Pulse Oximetry 95 92 L 93 L 07/15/18 06:41 07/15/18 07:00 07/15/18 07:41 Temperature Pulse Rate 108 H 109 H 108 H Respiratory Rate 23 23 23 Blood Pressure 130/68 133/61 Pulse Oximetry 91 L 93 L 94 L 07/15/18 08:00 07/15/18 08:35 07/15/18 08:41 Temperature 98.6 F Pulse Rate 105 H 108 H Respiratory Rate 23 23 Blood Pressure 126/61 Pulse Oximetry 95 94 L 93 L 07/15/18 09:00 07/15/18 09:41 07/15/18 10:00 Temperature Pulse Rate 105 H 119 H 117 H Respiratory Rate 23 23 25 H Blood Pressure 122/67 Pulse Oximetry 94 L 93 L 95 07/15/18 10:41 07/15/18 11:00 07/15/18 11:35 Temperature Pulse Rate 111 H 108 H 96 H Respiratory Rate 22 20 26 H Blood Pressure 118/62 Pulse Oximetry 98 97 99 07/15/18 11:41 07/15/18 12:00 07/15/18 12:42 Temperature 99.1 F Pulse Rate 96 H 101 H 105 H Respiratory Rate 23 22 Blood Pressure 114/55 L 96/67 L Pulse Oximetry 97 98 100 07/15/18 13:00 07/15/18 13:42 07/15/18 14:00 Temperature Pulse Rate 102 H 110 H 105 H Respiratory Rate 28 H 31 H 32 H Blood Pressure 122/60 Pulse Oximetry 93 L 90 L 96 07/15/18 14:42 07/15/18 15:00 Temperature Pulse Rate 105 H 124 H Respiratory Rate 23 29 H Blood Pressure 137/61 Pulse Oximetry 94 L 90 L Intake & Output 07/14/18 07/15/1818 18:59 06:59 18:59 Intake Total 1220 / 1220 1040 / 1040 555 / 555 Output Total 2049 1400 / 1400 Balance -830 / -830 -360 / -360 555 / 555 Weight 69.3 kg Intake: IV 500 / 500 560 / 560 555 / 555 Maxipime Inj 2,000 MG In NS Inj 100 / 100 200 / 200 100 / 100 100 ML @ 200 mls/hr IV.SIG Q8H [facility] Rx#:[id number] Magnesium Sulfate Inj 2 GM In 100 / 100 100 / 100 NS Inj 96 ML @ 50 mls/hr IV.SIG ONCE ONE Rx#:[id number] KCl 40 mEq Premix Inj 40 meq In 100 / 100 100 / 100 100 ml @ 25 mls/hr IV.SIG ONCE ONE Rx#:[id number] Potassium Phosphate Inj 15 MMOL 155 / 155 In NS Inj 150 ML @ 38.75 mls/ hr IV.SIG ONCE ONE Rx#:[id number] Potassium Phosphate Inj 30 MMOL 260 / 260 In NS Inj 250 ML @ 43.333 mls/ hr IV.SIG ONCE ONE Rx#:[id number] Flagyl 500 MG Inj 100 ML @ 100 200 / 200 100 / 100 100 / 100 mls/hr IV.SIG Q8H [facility] Rx#: [id number] Oral 720 / 720 480 / 480 Output: Urine Amount (Catheter) 2049 1400 / 1400 Indwelling Urethral Catheter 2049 1400 / 1400 Other: Date of Last Bowel Movement 07/13/18 07/13/18 07/13/18 # Bowel Movements 0 Weight On Admission 69.3 kg <Oliver Wilson - 07/15/18 16:06> Vital Signs 07/14/18 12:00 07/14/18 13:00 07/14/18 13:41 Temperature 98.6 F Pulse Rate 87 83 127 H Respiratory Rate 25 H 26 H 25 H Blood Pressure 159/67 H 143/72 H Pulse Oximetry 96 94 L 96 07/14/18 14:00 07/14/18 14:41 07/14/18 15:00 Temperature Pulse Rate 113 H 86 87 Respiratory Rate 26 H 25 H 19 Blood Pressure 143/72 H 139/65 139/65 Pulse Oximetry 96 96 95 07/14/18 15:41 07/14/18 16:00 07/14/18 16:41 Temperature 98.2 F Pulse Rate 90 87 87 Respiratory Rate 25 H 25 H 20 Blood Pressure 147/65 H 147/65 H 132/60 Pulse Oximetry 95 97 98 07/14/18 16:56 07/14/18 17:00 07/14/18 17:41 Temperature Pulse Rate 85 85 84 Respiratory Rate 21 21 27 H Blood Pressure 132/61 Pulse Oximetry 100 95 07/14/18 18:00 07/14/18 19:00 07/14/18 19:26 Temperature Pulse Rate 87 77 77 Respiratory Rate 25 H 28 H 26 H Blood Pressure 126/60 Pulse Oximetry 90 L 98 97 07/14/18 20:00 07/14/18 21:00 07/14/18 22:00 Temperature Pulse Rate 83 82 83 Respiratory Rate 25 H 28 H 28 H Blood Pressure 134/63 133/61 129/60 Pulse Oximetry 91 L 94 L 91 L 07/14/18 23:00 07/14/18 23:10 07/15/18 00:00 Temperature Pulse Rate 79 78 80 Respiratory Rate 27 H 24 24 Blood Pressure 133/63 133/60 Pulse Oximetry 95 94 L 97 07/15/18 01:00 07/15/18 02:00 07/15/18 03:00 Temperature Pulse Rate 81 78 81 Respiratory Rate 25 H 25 H 21 Blood Pressure 133/60 120/60 117/59 L Pulse Oximetry 95 98 92 L 07/15/18 03:11 07/15/18 03:13 07/15/18 04:00 Temperature Pulse Rate 80 82 Respiratory Rate 26 H 23 Blood Pressure 124/60 Pulse Oximetry 94 L 95 07/15/18 05:00 07/15/18 06:00 07/15/18 06:41 Temperature Pulse Rate 106 H 106 H 108 H Respiratory Rate 20 30 H 23 Blood Pressure 131/62 123/66 130/68 Pulse Oximetry 92 L 93 L 91 L 07/15/18 07:00 07/15/18 07:41 07/15/18 08:00 Temperature 98.6 F Pulse Rate 109 H 108 H 105 H Respiratory Rate 23 23 23 Blood Pressure 133/61 Pulse Oximetry 93 L 94 L 95 07/15/18 08:35 07/15/18 08:41 07/15/18 09:00 Temperature Pulse Rate 108 H 105 H Respiratory Rate 23 23 Blood Pressure 126/61 Pulse Oximetry 94 L 93 L 94 L 07/15/18 09:41 07/15/18 10:00 07/15/18 11:35 Temperature Pulse Rate 119 H 117 H 96 H Respiratory Rate 23 25 H 26 H Blood Pressure 122/67 Pulse Oximetry 93 L 95 99 Intake & Output 07/14/18 07/15/18 07/15/18 18:59 06:59 18:59 Intake Total 1220 / 1220 1040 / 1040 Output Total 2049 1400 / 1400 Balance -830 / -830 -360 / -360 Weight 69.3 kg Intake: IV 500 / 500 560 / 560 Maxipime Inj 2,000 MG In NS Inj 100 / 100 200 / 200 100 ML @ 200 mls/hr IV.SIG Q8H [facility] Rx#:[id number] Magnesium Sulfate Inj 2 GM In 100 / 100 NS Inj 96 ML @ 50 mls/hr IV.SIG ONCE ONE Rx#:[id number] KCl 40 mEq Premix Inj 40 meq In 100 / 100 100 ml @ 25 mls/hr IV.SIG ONCE ONE Rx#:[id number] Potassium Phosphate Inj 30 MMOL 260 / 260 In NS Inj 250 ML @ 43.333 mls/ hr IV.SIG ONCE ONE Rx#:[id number] Flagyl 500 MG Inj 100 ML @ 100 200 / 200 100 / 100 mls/hr IV.SIG Q8H [facility] Rx#: [id number] Oral 720 / 720 480 / 480 Output: Urine Amount (Catheter) 2049 1400 / 1400 Indwelling Urethral Catheter 2049 1400 / 1400 Other: Date of Last Bowel Movement 07/13/18 07/13/18 07/13/18 # Bowel Movements 0 Weight On Admission 69.3 kg <Louann Gonzalez N - 07/15/18 11:48> - Urinary Catheter Management Indwelling Urethral Catheter Cath placed during this visit: no <Oliver Wilson - 07/15/18 16:06> yes <Louann Gonzalez N - 07/15/18 11:48> Reason for continuing: Hourly intake/output <AbiLouann Delgadillo N - 07/15/18 11:48 > Insertion date: 07/13/18 <AbiLouann Delgadillo N - 07/15/18 11:48> Insertion time: 14:30 <Cynthia Louann Waddell N - 07/15/18 11:48> Assessment and Plan - Assessment (1) Acute hypoxemic respiratory failure Code(s): J96.01 - Acute respiratory failure with hypoxia Status: Acute (2) Mitral regurgitation Code(s): I34.0 - Nonrheumatic mitral (valve) insufficiency Status: Acute (3) Colitis Code(s): K52.9 - Noninfective gastroenteritis and colitis, unspecified Status : Acute (4) Electrolyte abnormality Code(s): E87.8 - Other disorders of electrolyte and fluid balance, not elsewhere classified Status: Acute (5) Afib Code(s): I48.91 - Unspecified atrial fibrillation Status: Acute (6) Anxiety Code(s): F41.9 - Anxiety disorder, unspecified Status: Acute (7) Hypothyroid Code(s): E03.9 - Hypothyroidism, unspecified Status: Acute (8) Sepsis associated hypotension Code(s): A41.9 - Sepsis, unspecified organism; I95.9 - Hypotension, unspecified Status: Resolved <Oliver Wilson - 07/15/18 16:06> (1) Acute hypoxemic respiratory failure Code(s): J96.01 - Acute respiratory failure with hypoxia Status: Acute Plan: Flash pulmonary edema after EGD and colonoscopy CC consulted to assist in management and monitor, based on complexity of patient 's risk factors and comorbidities On tele IV cefepime started (day #2) to cover for possible HCAP Repeat echo 07/14 shows worsening of ejection fraction and pulmonary hypertension, along w/left sided pleural effusion. Tricuspid regurgitation is now moderate to severe. Improving w/diuresis, currently at Lasix 60 mg BID Weaning down O2 as tolerated CC managing electrolytes Order CTA to r/o PE (2) Mitral regurgitation Code(s): I34.0 - Nonrheumatic mitral (valve) insufficiency Status: Acute Plan: Per echo 07.11.18: Normal left ventricular size. Wall thickness is measured at the upper limits of normal. The left ventricular systolic function is normal with an estimated ejection fraction in the range of 55-60%. The left atrial size is mildly dilated. Moderate to severe mitral valve regurgitation. Trace aortic valve regurgitation. There is moderate tricuspid regurgitation. The estimated pulmonary arterial pressure is 70 mmHg. Echo 07.14.18 shows mildly reduced EF of 50% (range), worsening right ventricular systolic function, tricuspid valve regurgitation, and pulmonary HTN (sever at 77 mm hg). Left sided pleural effusion is evident. May predispose patient to atelactasis and likely contributed to pulmonary edema Cardiology following Currently on flecainide and Eliquis Con't to diuresis (3) Colitis Code(s): K52.9 - Noninfective gastroenteritis and colitis, unspecified Status : Acute Plan: Sepsis associated with possible colitis (per CT scan), hypotension resolved, and bradycardia resolved. -Critical care consulted and signed off 07/11 -Blood cultures from 07/08-no growth to date -ID consulted. Patient placed on Flagyl - S/p colonoscopy and egd for evidence of source for colitis. No acute abnormalities found -On Flagyl 500 mg IV every 8 hours (07/09 - present), day #6. Plan to dc after 7 days Con't flagyl for now per ID recs (4) Electrolyte abnormality Code(s): E87.8 - Other disorders of electrolyte and fluid balance, not elsewhere classified Status: Acute Plan: Monitoring potassium and phosphate, CC assisting to replete as needed (5) Afib Code(s): I48.91 - Unspecified atrial fibrillation Status: Acute Plan: Multiple hospitalizations for paroxysmal, symptomatic afib S/p multiple ablations -Currently holding metoprolol -Continue to monitor on telemetry -Continue to follow cardiology recommendations: -flecainide 100mg BID (6) Anxiety Code(s): F41.9 - Anxiety disorder, unspecified Status: Acute Plan: May resume Xanax 0.25 mg p.o. (7) Hypothyroid Code(s): E03.9 - Hypothyroidism, unspecified Status: Acute Plan: Continue levothyroxine 50 mcg daily (8) Sepsis associated hypotension Code(s): A41.9 - Sepsis, unspecified organism; I95.9 - Hypotension, unspecified Status: Resolved Plan: Resolved <Louann Gonzalez N - 07/15/18 11:40> - Assessment and Plan Hospital course: -Status post normal saline bolus 1 L x4 -Stool C. difficile screen negative -Leukocytosis improving; 9.4 on admission and then trended: 24.9, 17.4, 14.7 -Lactic acid trend 1.4 -> 2.3 -> 1.9 -CRP elevated at 2.44 -TSH within normal limits but free T4 elevated at 1.76, free T3 decreased at 0.86 -Thoracic aorta CT: No evidence for aortic aneurysm or dissection, diffuse colonic wall thickening most notably in the transverse colon. Findings are most concerning for colitis, likely infectious or inflammatory in etiology. The mesenteric arteries are patent which makes ischemic etiology unlikely. Moderate severe sigmoid diverticulosis. -Head CT: No acute intracranial abnormality. Atrophy and chronic white matter changes -Abdominal CT without contrast: Unremarkable study without evidence of bowel obstruction or free fluid or free air of any significance. Gallbladder is well distended. Kidneys are functioning. Degenerative arthritis lower lumbar spine. Bibasilar consolidation, likely atelectasis. Sigmoid diverticulosis. Hypotension resolved. - Echo done on 07/11 showed moderate to severe mitral regurgitation and bilateral atelactasis. Patient was encouraged to mobilize with PT and breathing treatments were ordered but spaced out to prevent arrythmias. - 07/13 endoscopy and colonoscopy. No abnormalities on egd, colonsocopy showed large internal hemorrhoids and severe diverticulosis. Colonoscopy recommended in 1 year. After procedure, patient went into acute respiratory failure 2/2 to flash pulmonary edema. Underwent diuresis to improve symptoms and monitored on telemetry. <Louann Gonzalez - 07/15/18 11:48> Discharge Planning: Pending completion of workup and clearance from cardio <Louann Gonzalez - 07/15/18 11:48> - Attending Attestation Patient case discussed with resident physicians I have independently examined the patient I have read the above note and agree with the assessment and plan as discussed with me I was involved in all medical decision making for this patient Oliver Wilson MD <Oliver Wilson - 07/15/18 16:06>
--- NOTE | 2018-07-15 11:56 | P.PNID ---
Subjective Remarks: Patient says she feels okay. She is sitting in a chair. Noted to have increased oxygen requirement. Also noted to have CHF. Reports that she is coughing. She has no abdominal pain. No fever or chills. Diverticulosis noted on colonoscopy. 83-year-old white female who recently underwent an ablation procedure and was discharged home on flecainide. The patient was brought to the emergency department on 07/08/2018 after she fell and hit her head and also was noted to have severe abdominal pain. The patient was using medications for bowel movements including 2 rectal suppositories. She was noted to have constipation. She reports that she had a bowel movement after taking the suppositories and after that, she had been having some watery stools. Her temperature in the emergency department was normal, and at one point, her blood pressure was low with a BP of 70/45. A CTA was ordered to rule out aortic dissection. The reading of the thoracic CT reports diffuse colonic wall thickening, most notably in the transverse colon. Findings are most concerning for colitis, likely infectious or inflammatory in etiology. Moderate to severe sigmoid diverticulosis also was noted on that reading. PAST MEDICAL HISTORY: Atrial fibrillation, hypertension, hypothyroidism, history of hysterectomy, history of hip replacement, radiofrequency ablation. Allergies/Adverse Reactions: Allergies cefaclor Allergy (Severe, Verified 07/04/18 09:33) RASH paroxetine Allergy (Severe, Verified 07/04/18 09:33) Rash Sulfa (Sulfonamide Antibiotics) Allergy (Severe, Verified 07/04/18 09:33) RASH ciprofloxacin Allergy (Unknown, Verified 07/04/18 09:33) GI UPSET clonidine Allergy (Unknown, Verified 07/04/18 09:33) SKIN IRRITATION latex bandages Adverse Reaction (Mild, Uncoded 07/02/18 10:47) SKIN REDNESS, RASH Objective Vital Signs 07/14/18 12:00 07/14/18 13:00 07/14/18 13:41 Temperature 98.6 F Pulse Rate 87 83 127 H Respiratory Rate 25 H 26 H 25 H Blood Pressure 159/67 H 143/72 H Pulse Oximetry 96 94 L 96 07/14/18 14:00 07/14/18 14:41 07/14/18 15:00 Temperature Pulse Rate 113 H 86 87 Respiratory Rate 26 H 25 H 19 Blood Pressure 143/72 H 139/65 139/65 Pulse Oximetry 96 96 95 07/14/18 15:41 07/14/18 16:00 07/14/18 16:41 Temperature 98.2 F Pulse Rate 90 87 87 Respiratory Rate 25 H 25 H 20 Blood Pressure 147/65 H 147/65 H 132/60 Pulse Oximetry 95 97 98 07/14/18 16:56 07/14/18 17:00 07/14/18 17:41 Temperature Pulse Rate 85 85 84 Respiratory Rate 21 21 27 H Blood Pressure 132/61 Pulse Oximetry 100 95 07/14/18 18:00 07/14/18 19:00 07/14/18 19:26 Temperature Pulse Rate 87 77 77 Respiratory Rate 25 H 28 H 26 H Blood Pressure 126/60 Pulse Oximetry 90 L 98 97 07/14/18 20:00 07/14/18 21:00 07/14/18 22:00 Temperature Pulse Rate 83 82 83 Respiratory Rate 25 H 28 H 28 H Blood Pressure 134/63 133/61 129/60 Pulse Oximetry 91 L 94 L 91 L 07/14/18 23:00 07/14/18 23:10 07/15/18 00:00 Temperature Pulse Rate 79 78 80 Respiratory Rate 27 H 24 24 Blood Pressure 133/63 133/60 Pulse Oximetry 95 94 L 97 07/15/18 01:00 07/15/18 02:00 07/15/18 03:00 Temperature Pulse Rate 81 78 81 Respiratory Rate 25 H 25 H 21 Blood Pressure 133/60 120/60 117/59 L Pulse Oximetry 95 98 92 L 07/15/18 03:11 07/15/18 03:13 07/15/18 04:00 Temperature Pulse Rate 80 82 Respiratory Rate 26 H 23 Blood Pressure 124/60 Pulse Oximetry 94 L 95 07/15/18 05:00 07/15/18 06:00 07/15/18 06:41 Temperature Pulse Rate 106 H 106 H 108 H Respiratory Rate 20 30 H 23 Blood Pressure 131/62 123/66 130/68 Pulse Oximetry 92 L 93 L 91 L 07/15/18 07:00 07/15/18 07:41 07/15/18 08:00 Temperature 98.6 F Pulse Rate 109 H 108 H 105 H Respiratory Rate 23 23 23 Blood Pressure 133/61 Pulse Oximetry 93 L 94 L 95 07/15/18 08:35 07/15/18 08:41 07/15/18 09:00 Temperature Pulse Rate 108 H 105 H Respiratory Rate 23 23 Blood Pressure 126/61 Pulse Oximetry 94 L 93 L 94 L 07/15/18 09:41 07/15/18 10:00 07/15/18 11:35 Temperature Pulse Rate 119 H 117 H 96 H Respiratory Rate 23 25 H 26 H Blood Pressure 122/67 Pulse Oximetry 93 L 95 99 Intake & Output 07/14/18 07/15/18 07/15/18 18:59 06:59 18:59 Intake Total 1220 / 1220 1040 / 1040 Output Total 2049 1400 / 1400 Balance -830 / -830 -360 / -360 Weight 69.3 kg Intake: IV 500 / 500 560 / 560 Maxipime Inj 2,000 MG In NS Inj 100 / 100 200 / 200 100 ML @ 200 mls/hr IV.SIG Q8H [facility] Rx#:[id number] Magnesium Sulfate Inj 2 GM In 100 / 100 NS Inj 96 ML @ 50 mls/hr IV.SIG ONCE ONE Rx#:[id number] KCl 40 mEq Premix Inj 40 meq In 100 / 100 100 ml @ 25 mls/hr IV.SIG ONCE ONE Rx#:[id number] Potassium Phosphate Inj 30 MMOL 260 / 260 In NS Inj 250 ML @ 43.333 mls/ hr IV.SIG ONCE ONE Rx#:[id number] Flagyl 500 MG Inj 100 ML @ 100 200 / 200 100 / 100 mls/hr IV.SIG Q8H [facility] Rx#: [id number] Oral 720 / 720 480 / 480 Output: Urine Amount (Catheter) 2049 1400 / 1400 Indwelling Urethral Catheter 2049 1400 / 1400 Other: Date of Last Bowel Movement 07/13/18 07/13/18 07/13/18 # Bowel Movements 0 Weight On Admission 69.3 kg 07/08/18 20:00 Blood - Peripheral Aerobic Blood Culture - Final No growth in 5 days 07/08/18 20:00 Blood - Peripheral Anaerobic Blood Culture - Final No growth in 5 days 07/08/18 20:05 Blood - Peripheral Aerobic Blood Culture - Final No growth in 5 days 07/08/18 20:05 Blood - Peripheral Anaerobic Blood Culture - Final No growth in 5 days Lab - Hematology Results 07/14/18 07/15/18 06:30 10:22 WBC 16.7 H RBC 3.16 L Hgb 10.3 L Hct 29.8 L MCV 94.0 MCH 32.5 MCHC 34.6 RDW 14.8 Plt Count 195 MPV 7.4 Prelim Diff (Auto) Slide review pending Neut % (Auto) 87.6 H Lymph % (Auto) 2.7 L Wright % (Auto) 9.4 H Eos % (Auto) 0.1 Baso % (Auto) 0.2 Neut # (Auto) 14.6 H Lymph # (Auto) 0.5 L Wright # (Auto) 1.6 H Eos # (Auto) 0.0 Baso # (Auto) 0.0 WBC Differential Manual diff final Seg Neuts % (Manual) 80 H Band Neuts % (Manual) 5 Lymphocytes % (Manual) 8 L Monocytes % (Manual) 6 Myelocytes % (Man) 1 H Abs Neuts (Manual) 14.4 H Differential Comment . Toxic Granulation 1+ H Platelet Estimate Normal Platelet Morphology Normal Smear Path Review Lab - Chemistry Results 07/13/18 07/13/18 07/13/18 06:21 18:10 18:10 Sodium Potassium 3.6 Chloride Carbon Dioxide Anion Gap BUN Creatinine Estimated GFR POC Glucose Random Glucose Calcium Calcium Adj for Albumin Phosphorus 1.2 L Magnesium Total Creatine Kinase 105 Cancelled Troponin I 0.10 H Cancelled B-Natriuretic Peptide 687 H Albumin 07/14/18 07/14/18 07/14/18 00:40 06:30 06:30 Sodium 138 Potassium 3.4 L Chloride 103 Carbon Dioxide 26.0 Anion Gap 9 BUN 8 Creatinine 0.79 Estimated GFR 70 L POC Glucose Random Glucose 119 H Calcium 7.3 L* Calcium Adj for Albumin 8.5 Phosphorus 1.2 L Magnesium 1.5 Total Creatine Kinase 75 59 Troponin I 0.07 H 0.06 H B-Natriuretic Peptide 361 H Albumin 2.5 L 07/14/18 07/14/18 07/15/18 09:49 21:11 04:44 Sodium 134 L 136 Potassium 4.4 D 3.1 L D Chloride 100 97 L Carbon Dioxide 27.3 28.7 Anion Gap 7 10 BUN 13 14 Creatinine 0.90 0.94 Estimated GFR 60 L 57 L POC Glucose 141 H Random Glucose 131 H 140 H Calcium 7.5 L 7.4 L* Calcium Adj for Albumin 8.8 Phosphorus 1.7 L Magnesium 1.6 Total Creatine Kinase Troponin I B-Natriuretic Peptide Albumin 2.3 L 07/15/18 04:44 Sodium Potassium Chloride Carbon Dioxide Anion Gap BUN Creatinine Estimated GFR POC Glucose Random Glucose Calcium Calcium Adj for Albumin Phosphorus Magnesium Total Creatine Kinase Troponin I B-Natriuretic Peptide 216 H Albumin Imaging: ITS Impressions Thoracic Aorta CT 07/08/18 20:02 CONCLUSION: 1. No evidence for aortic aneurysm or dissection as questioned. 2. Diffuse colonic wall thickening most notably in the transverse colon. Findings are most concerning for colitis, likely infectious or inflammatory in etiology. The mesenteric arteries are patent which make ischemic etiology unlikely. 3. Moderate severe sigmoid diverticulosis. 4. Coronary artery calcifications. 5. Additional ancillary findings, as above. Head CT 07/08/18 20:05 CONCLUSION: 1. No acute intracranial abnormality. 2. Atrophy and chronic white matter changes. . Abdomen/Pelvis CT 07/09/18 00:44 CONCLUSION: 1. Unremarkable study without evidence of bowel obstruction or free fluid or free air of any significance. Gallbladder is well distended. Kidneys are functioning. Degenerative arthritis lower lumbar spine. Bibasilar consolidation likely atelectasis 2. Sigmoid diverticulosis Chest X-Ray 07/14/18 00:00 CONCLUSION: Worsening aeration Physical Exam: GENERAL: No acute distress. HEENT: Head atraumatic. Extraocular movements are grossly intact. Pupils reactive to light. No icterus. No conjunctival erythema. Oropharynx, mucosa is moist. LUNGS: Clear breath sounds. CARDIOVASCULAR: Regular S1 and S2. Systolic murmur at the right sternal border. ABDOMEN: Soft, protuberant. Decreased bowel sounds. No tenderness. EXTREMITIES: No clubbing, cyanosis or edema. Diffuse ecchymosis of both lower extremities and also of the upper extremities. SKIN: No diffuse rash. NEUROLOGIC: No gross focal finding. PSYCHIATRIC: Calm and cooperative. Assessment and Plan - Plan IMPRESSION: Abdominal pain and abnormal transverse colon findings suggesting colitis. Questionable inflammatory. Negative Clostridium difficile toxin. Leukocytosis. White count remains elevated. Abnormal chest x-ray. Probable pneumonia. RECOMMENDATIONS: Continue Flagyl. Continue Cefepime. Follow the white blood cell count. Obtain sputum culture if she is coughing up sputum. Discussed with DR Wilson.
--- NOTE | 2018-07-15 12:48 | CT ---
EXAM DATE: 07/15/2018 12:41 PM EST AGE/SEX: 83 years / Female INDICATIONS: Embolism. CLINICAL DATA: This is the patient's subsequent encounter. Patient reports that signs and symptoms h ave been present for 1 day and indicates a pain score of 3/10. MEDICAL/SURGICAL HISTORY: Hypertension. Cardiovascular disease. Colitis. Acute kidney injury. Hys terectomy. Bilateral hip replacement. RADIATION DOSE: 9.41 CTDI (mGy) COMPARISON: No prior exams available for comparison. TECHNIQUE: Volumetric scanning was performed using a multi-row detector CT scanner during bolus infu lio of 72 ml Omnipaque 350 (iohexol) nonionic water-soluble contrast as a single exam dose. The nicolas a was post processed with a variety of visualization algorithms including full volume maximum intensi ty projection and sliding thin slab reformation. Using automated exposure control and adjustment of t he mA and/or kV according to patient size, radiation dose was kept as low as reasonably achievable to obtain optimal diagnostic quality images. DICOM format image data is available electronically for r eview and comparison. FINDINGS: Pulmonary Arteries: No filling defects are seen in the pulmonary arteries out to the subsegmental ve ssels. The left and right pulmonary arteries are normal in diameter. Lung: Bibasilar compressive atelectasis is noted. Ground-glass infiltrates are noted bilaterally con sistent with mild pulmonary vascular congestion or possible pneumonia. Clinical correlation is recomm ended. No pulmonary nodule or mass is noted. Effusion: Moderate-sized bilateral pleural effusions are noted. Mediastinum: Minimally prominent pretracheal and subcarinal and AP window mediastinal lymph nodes as well as right hilar lymph nodes which are nonspecific. The heart is enlarged. Coronary artery calcifi cations are noted. Other: The axilla is unremarkable. Small hiatal hernia is noted. CONCLUSION: 1. This study is negative for pulmonary embolism. 2. Moderately-sized bilateral pleural effusions. 3. Ground-glass infiltrates are noted bilaterally consistent with mild pulmonary vascular congestion or possible pneumonia. Clinical correlation is recommended. 4. Bibasilar compressive atelectasis. 5. Minimally prominent pretracheal, subcarinal and AP window mediastinal as well as right hilar lymp h nodes which are nonspecific. 6. Cardiomegaly and coronary artery calcifications. 7. Small hiatal hernia. Electronically signed by: Oracio Addison MD Board Certified Radiologist 07/15/2018 12:47 PM EST
--- NOTE | 2018-07-15 18:25 | P.PNCA ---
Subjective Interval history: Decreased oxygen demand Back in Afib with mostly controlled rates Diuresing Medications and Allergies Active Medications: Active Medications Acetaminophen (Tylenol) 650 mg PO Q4H PRN PRN Reason: Temp > 100.4 Albuterol (Albuterol Neb (Prn)) 2.5 mg NEB ONCE PRN PRN Reason: SHORTNESS OF BREATH Last Admin: 07/12/18 16:10 Dose: 2.5 mg Albuterol (Duoneb Neb ([facility])) 1 ampul NEB Q4HR NEB [facility] Last Admin: 07/15/18 16:32 Dose: 1 ampul Alprazolam (Xanax) 0.25 mg PO Q12H PRN PRN Reason: ANXIETY Last Admin: 07/15/18 09:03 Dose: 0.25 mg Apixaban (Eliquis) 5 mg PO BID [facility] Last Admin: 07/15/18 09:03 Dose: 5 mg Flecainide Acetate (Tambocor) 100 mg PO BID [facility] Last Admin: 07/15/18 09:02 Dose: 100 mg Furosemide (Lasix Inj) 60 mg IV.PUSH Q12H [facility] Last Admin: 07/15/18 13:22 Dose: 60 mg Hydromorphone HCl (Dilaudid Pf Inj) 0.5 mg IV.PUSH ONCE PRN PRN Reason: ABDOMINAL PAIN Last Admin: 07/09/18 00:54 Dose: 0.5 mg Metronidazole/Sodium Chloride (Flagyl 500 Mg Inj) 100 mls @ 100 mls/hr IV.SIG Q8H [facility] Last Infusion: 07/15/18 17:26 Dose: Infused Lactated Ringer's (Lr 1000 Ml Inj) 1,000 mls @ 30 mls/hr IV.SIG .Q24H [facility] Last Admin: 07/15/18 07:27 Dose: Not Given Sodium Chloride (Ns Inj) 500 mls @ 30 mls/hr IV.SIG .Q10H [facility] Last Admin: 07/15/18 07:28 Dose: Not Given Cefepime HCl 2,000 mg/ Sodium (Chloride) 100 mls @ 200 mls/hr IV.SIG Q8H [facility] Last Infusion: 07/15/18 14:17 Dose: Infused Levothyroxine Sodium (Synthroid) 50 mcg PO DAILY@0600 [facility] Last Admin: 07/15/18 05:06 Dose: 50 mcg Ondansetron HCl (Zofran Inj) 4 mg IV.PUSH Q6H PRN PRN Reason: NAUSEA OR VOMITING Last Admin: 07/12/18 21:03 Dose: 4 mg Patch Removal (Remove Old Patch) 1 each T-DERMAL Q7D [facility] Last Admin: 07/12/18 17:38 Dose: 1 each Potassium Chloride (K-Dur) 20 meq PO DAILY [facility] Last Admin: 07/15/18 09:04 Dose: 20 meq Sodium Chloride (Ns Flush) 2 ml IV.FLUSH BID [facility] Last Admin: 07/15/18 09:03 Dose: 2 ml Sodium Chloride (Ns Flush) 2 ml IV.FLUSH PRN PRN PRN Reason: FLUSH AFTER USING IV ACCESS Allergies Allergy/AdvReac Type Severity Reaction Status Date / Time cefaclor Allergy Severe RASH Verified 07/04/18 09:33 paroxetine Allergy Severe Rash Verified 07/04/18 09:33 Sulfa (Sulfonamide Allergy Severe RASH Verified 07/04/18 09:33 Antibiotics) ciprofloxacin Allergy Unknown GI UPSET Verified 07/04/18 09:33 clonidine Allergy Unknown SKIN Verified 07/04/18 09:33 IRRITATION latex bandages AdvReac Mild SKIN Uncoded 07/02/18 10:47 REDNESS, RASH Home Medications Medication Instructions Recorded Confirmed Type alprazolam 0.25 mg PO BID PRN 05/18/18 07/08/18 History amiodarone 200 mg PO DAILY 05/18/18 07/08/18 History apixaban [Eliquis] 5 mg PO BID 05/18/18 07/08/18 History estradiol 0.5 mg PO WEEKLY 05/18/18 07/08/18 History levothyroxine 50 mcg PO DAILY 05/18/18 07/08/18 History potassium chloride 20 meq PO DAILY 05/18/18 07/08/18 History Physical Exam Vital signs: Vital Signs 07/14/18 19:00 07/14/18 19:26 07/14/18 20:00 Temperature Pulse Rate 77 77 83 Respiratory Rate 28 H 26 H 25 H Blood Pressure 126/60 134/63 Pulse Oximetry 98 97 91 L 07/14/18 21:00 07/14/18 22:00 07/14/18 23:00 Temperature Pulse Rate 82 83 79 Respiratory Rate 28 H 28 H 27 H Blood Pressure 133/61 129/60 133/63 Pulse Oximetry 94 L 91 L 95 07/14/18 23:10 07/15/18 00:00 07/15/18 01:00 Temperature Pulse Rate 78 80 81 Respiratory Rate 24 24 25 H Blood Pressure 133/60 133/60 Pulse Oximetry 94 L 97 95 07/15/18 02:00 07/15/18 03:00 07/15/18 03:11 Temperature Pulse Rate 78 81 80 Respiratory Rate 25 H 21 26 H Blood Pressure 120/60 117/59 L Pulse Oximetry 98 92 L 07/15/18 03:13 07/15/18 04:00 07/15/18 05:00 Temperature Pulse Rate 82 106 H Respiratory Rate 23 20 Blood Pressure 124/60 131/62 Pulse Oximetry 94 L 95 92 L 07/15/18 06:00 07/15/18 06:41 07/15/18 07:00 Temperature Pulse Rate 106 H 108 H 109 H Respiratory Rate 30 H 23 23 Blood Pressure 123/66 130/68 Pulse Oximetry 93 L 91 L 93 L 07/15/18 07:41 07/15/18 08:00 07/15/18 08:35 Temperature 98.6 F Pulse Rate 108 H 105 H Respiratory Rate 23 23 Blood Pressure 133/61 Pulse Oximetry 94 L 95 94 L 07/15/18 08:41 07/15/18 09:00 07/15/18 09:41 Temperature Pulse Rate 108 H 105 H 119 H Respiratory Rate 23 23 23 Blood Pressure 126/61 122/67 Pulse Oximetry 93 L 94 L 93 L 07/15/18 10:00 07/15/18 10:41 07/15/18 11:00 Temperature Pulse Rate 117 H 111 H 108 H Respiratory Rate 25 H 22 20 Blood Pressure 118/62 Pulse Oximetry 95 98 97 07/15/18 11:35 07/15/18 11:41 07/15/18 12:00 Temperature Pulse Rate 96 H 96 H 101 H Respiratory Rate 26 H 23 22 Blood Pressure 114/55 L Pulse Oximetry 99 97 98 07/15/18 12:42 07/15/18 13:00 07/15/18 13:42 Temperature 99.1 F Pulse Rate 105 H 102 H 110 H Respiratory Rate 28 H 31 H Blood Pressure 96/67 L 122/60 Pulse Oximetry 100 93 L 90 L 07/15/18 14:00 07/15/18 14:42 07/15/18 15:00 Temperature Pulse Rate 105 H 105 H 124 H Respiratory Rate 32 H 23 29 H Blood Pressure 137/61 Pulse Oximetry 96 94 L 90 L 07/15/18 15:42 07/15/18 16:00 07/15/18 16:32 Temperature 98.7 F Pulse Rate 106 H 105 H 102 H Respiratory Rate 80 H 37 H 28 H Blood Pressure 118/56 L Pulse Oximetry 93 L 92 L 07/15/18 16:33 07/15/18 16:42 07/15/18 17:00 Temperature Pulse Rate 97 H 100 H Respiratory Rate 28 H 30 H Blood Pressure 114/65 Pulse Oximetry 95 93 L 92 L Intake & Output 07/14/18 07/15/18 07/15/18 18:59 06:59 18:59 Intake Total 1220 / 1220 1040 / 1040 655 / 655 Output Total 2049 1400 / 1400 Balance -830 / -830 -360 / -360 655 / 655 Weight 69.3 kg Intake: IV 500 / 500 560 / 560 655 / 655 Maxipime Inj 2,000 MG In NS Inj 100 / 100 200 / 200 100 / 100 100 ML @ 200 mls/hr IV.SIG Q8H [facility] Rx#:[id number] Magnesium Sulfate Inj 2 GM In 100 / 100 100 / 100 NS Inj 96 ML @ 50 mls/hr IV.SIG ONCE ONE Rx#:[id number] KCl 40 mEq Premix Inj 40 meq In 100 / 100 100 / 100 100 ml @ 25 mls/hr IV.SIG ONCE ONE Rx#:[id number] Potassium Phosphate Inj 15 MMOL 155 / 155 In NS Inj 150 ML @ 38.75 mls/ hr IV.SIG ONCE ONE Rx#:[id number] Potassium Phosphate Inj 30 MMOL 260 / 260 In NS Inj 250 ML @ 43.333 mls/ hr IV.SIG ONCE ONE Rx#:[id number] Flagyl 500 MG Inj 100 ML @ 100 200 / 200 100 / 100 200 / 200 mls/hr IV.SIG Q8H [facility] Rx#: [id number] Oral 720 / 720 480 / 480 Output: Urine Amount (Catheter) 2049 1400 / 1400 Indwelling Urethral Catheter 2049 1400 / 1400 Other: Date of Last Bowel Movement 07/13/18 07/13/18 07/15/18 # Bowel Movements 0 Weight On Admission 69.3 kg Narrative: GENERAL: Elderly appearing female, sitting up in bed on non-rebreather. SKIN: Warm and dry. Multiple ecchymoses over bilateral shins and arms. HEAD: Normocephalic. CARDIOVASCULAR: regular rhythm and rate. 3/6 holosystolic murmur at the apex RESPIRATORY: Crackles in bilateral lobes, air flow limited. GASTROINTESTINAL: Abdomen soft and nontender in any quadrant. Normal bowel sounds appreciated. Nondistended. MUSCULOSKELETAL: No cyanosis, or edema. Moves all extremities spontaneously. - Urinary Catheter Management Indwelling Urethral Catheter Cath placed during this visit: yes Reason for continuing: Hourly intake/output Insertion date: 07/13/18 Insertion time: 14:30 Results 07/14/18 06:30 07/15/18 04:44 Cardiac Enzymes 07/13/18 07/13/18 07/14/18 Range/Units 18:10 18:10 00:40 Troponin I 0.10 H Cancelled 0.07 H (0.02-0.05) ng/mL B-Natriuretic Peptide (0-100) pg/mL 07/14/18 07/14/18 07/15/18 Range/Units 06:30 06:30 04:44 Troponin I 0.06 H (0.02-0.05) ng/mL B-Natriuretic Peptide 361 H 216 H (0-100) pg/mL Coagulation 07/14/18 07/15/18 Range/Units 06:30 04:44 B-Natriuretic Peptide 361 H 216 H (0-100) pg/mL CBC 07/14/18 Range/Units 06:30 WBC 16.7 H (4.0-11.0) th/mm3 RBC 3.16 L (4.00-5.30) mil/mm3 Hgb 10.3 L (11.6-15.3) gm/dL Hct 29.8 L (35.0-46.0) % Plt Count 195 (150-450) th/mm3 Neut # (Auto) 14.6 H (1.8-7.7) th/mm3 Lymph # (Auto) 0.5 L (1.0-4.8) th/mm3 [place] # (Auto) 1.6 H (0.0-0.9) th/mm3 Eos # (Auto) 0.0 (0.0-0.4) th/mm3 Baso # (Auto) 0.0 (0.0-0.2) th/mm3 Comprehensive Metabolic Panel 07/13/18 07/14/18 07/14/18 Range/Units 18:10 00:40 21:11 Sodium 138 134 L (136-145) meq/L Potassium 3.6 3.4 L 4.4 D (3.5-5.1) meq/L Chloride 103 100 (98-107) meq/L Carbon Dioxide 26.0 27.3 (21.0-32.0) meq/L BUN 8 13 (7-18) mg/dL Creatinine 0.79 0.90 (0.50-1.00) mg/dL Calcium 7.3 L* 7.5 L (8.5-10.1) mg/dL Albumin 2.5 L (3.4-5.0) g/dL 07/15/18 Range/Units 04:44 Sodium 136 (136-145) meq/L Potassium 3.1 L D (3.5-5.1) meq/L Chloride 97 L (98-107) meq/L Carbon Dioxide 28.7 (21.0-32.0) meq/L BUN 14 (7-18) mg/dL Creatinine 0.94 (0.50-1.00) mg/dL Calcium 7.4 L* (8.5-10.1) mg/dL Albumin 2.3 L (3.4-5.0) g/dL Intake and Output 07/15/18 07/15/18 07/15/18 06:59 14:59 22:59 Intake Total 680 / 680 555 / 555 100 / 100 Output Total 1400 / 1400 Balance -720 / -720 555 / 555 100 / 100 Intake: IV 200 / 200 555 / 555 100 / 100 Maxipime Inj 2,000 MG In NS Inj 100 / 100 100 / 100 100 ML @ 200 mls/hr IV.SIG Q8H [facility] Rx#:[id number] Magnesium Sulfate Inj 2 GM In 100 / 100 NS Inj 96 ML @ 50 mls/hr IV.SIG ONCE ONE Rx#:[id number] KCl 40 mEq Premix Inj 40 meq In 100 / 100 100 ml @ 25 mls/hr IV.SIG ONCE ONE Rx#:[id number] Potassium Phosphate Inj 15 MMOL 155 / 155 In NS Inj 150 ML @ 38.75 mls/ hr IV.SIG ONCE ONE Rx#:[id number] Flagyl 500 MG Inj 100 ML @ 100 100 / 100 100 / 100 100 / 100 mls/hr IV.SIG Q8H [facility] Rx#: [id number] Oral 480 / 480 Output: Urine Amount (Catheter) 1400 / 1400 Indwelling Urethral Catheter 1400 / 1400 Other: Date of Last Bowel Movement 07/13/18 07/13/18 07/15/18 # Bowel Movements 0 Weight 69.3 kg Weight On Admission 69.3 kg - Imaging and Cardiology Imaging: Impressions Chest X-Ray 07/14/18 00:00 CONCLUSION: Worsening aeration Chest CTA 07/15/18 00:00 CONCLUSION: 1. This study is negative for pulmonary embolism. 2. Moderately-sized bilateral pleural effusions. 3. Ground-glass infiltrates are noted bilaterally consistent with mild pulmonary vascular congestion or possible pneumonia. Clinical correlation is recommended. 4. Bibasilar compressive atelectasis. 5. Minimally prominent pretracheal, subcarinal and AP window mediastinal as well as right hilar lymph nodes which are nonspecific. 6. Cardiomegaly and coronary artery calcifications. 7. Small hiatal hernia. Assessment and Plan - Assessment (1) Bradycardia Code(s): R00.1 - Bradycardia, unspecified Status: Acute (2) Colitis Code(s): K52.9 - Noninfective gastroenteritis and colitis, unspecified Status : Acute (3) Afib Code(s): I48.91 - Unspecified atrial fibrillation Status: Acute (4) Hypertension Code(s): I10 - Essential (primary) hypertension Status: Acute (5) Hypothyroid Code(s): E03.9 - Hypothyroidism, unspecified Status: Acute (6) Anxiety Code(s): F41.9 - Anxiety disorder, unspecified Status: Acute (7) SKY (acute kidney injury) Code(s): N17.9 - Acute kidney failure, unspecified Status: Acute (8) Sepsis associated hypotension Code(s): A41.9 - Sepsis, unspecified organism; I95.9 - Hypotension, unspecified Status: Resolved - Plan 1. Abdominal pain, which appears to be due to colitis. Clinically better 2. Sepsis. Resolved, most likely secondary to colitis 3. Hypotension responsive to IV fluids. Resolved 4. Acute bradycardia secondary to medications. Amiodarone stopped Metoprolol held Con't to follow rates for now, currently stable 5. Difficult to control atrial fibrillation with history of atrial fibrillation ablation x2 and atrial flutter ablation x1. Will need to stop Flecainide for now with CHF Will place on low dose BB Convert back to Flecainide when through CHF If elevated rates, then may need Digoxin load Eliquis 6. Previous hypothermia. 7. Acute kidney injury. 8. Flash pulmonary edema EKG with minimal changes, similar to previous Most likely due to known moderate to severe MR Troponins minimal and decreasing, most likely type 2 Repeat echo with no significant change Overall feel this is not due to coronary artery disease, but most likely her mitral regurgitation Bilateral pleural effusion If not decreasing oxygen demand, may need thoracentesis Will need work up for mitral valve regurgitation She would prefer to get better and do electively, will have to see how hospital course progresses If not better, may need to consider Mitral Clip 9. Dr. Hinson will be covering over the weekend if questions arise
[2018-07-15 22:36] LABS: Calcium 7.6 mg/dL (8.5-10.1); Carbon Dioxide 28.3 meq/L (21.0-32.0); Potassium 3.8 meq/L (3.5-5.1)
[2018-07-16 04:12] LABS: Baso # (Auto) 0.1 th/mm3 (0.0-0.2); Baso % (Auto) 0.5 % (0.0-2.0); Eos # (Auto) 0.2 th/mm3 (0.0-0.4); Eos % (Auto) 1.1 % (0.0-4.0); Hematocrit 33.2 % (35.0-46.0); Hemoglobin 11.1 gm/dL (11.6-15.3); Lymph # (Auto) 1.3 th/mm3 (1.0-4.8); Mean Corpuscular HGB Conc 33.3 % (32.0-36.0); Mean Corpuscular Hemoglobin 31.6 pg (27.0-34.0); Mean Corpuscular Volume 94.8 fL (80.0-100.0); Mono # (Auto) 1.1 th/mm3 (0.0-0.9); Mono % (Auto) 6.8 % (0.0-8.0); Neut # (Auto) 13.1 th/mm3 (1.8-7.7); Neut % (Auto) 83.6 % (16.0-70.0); Platelet Count 241 th/mm3 (150-450); Red Blood Count 3.51 mil/mm3 (4.00-5.30); Red Cell Distribution Width 14.8 % (11.6-17.2); White Blood Count 15.6 th/mm3 (4.0-11.0)
[2018-07-16 04:48] LABS: Calcium 7.9 mg/dL (8.5-10.1); Carbon Dioxide 26.6 meq/L (21.0-32.0); Magnesium 1.9 mg/dL (1.5-2.5); Phosphorus 2.6 mg/dL (2.5-4.9)
[2018-07-16 04:53] LABS: Potassium 2.9 meq/L (3.5-5.1)
[2018-07-16 05:13] LABS: Eosinophils 1 % (0-4); Lymphocytes 12 % (9-44); Metamyelocytes 2 % (0-1); Monocytes 1 % (0-8)
[2018-07-16 05:14] LABS: Platelet Estimate Normal (Normal); Platelet Morphology Normal (Normal)
[2018-07-16] MEDS: Levothyroxine 50 MCG Tablet PO SCH (05:27)
[2018-07-16] MEDS: Flecainide 100 MG Tablet PO SCH ×2 (08:11→21:25)
[2018-07-16] MEDS: Potassium Chlor 20 mEq Premix 20 MEQ/100 ML PIGGYBACK IV.SIG SCH ×4 (09:08→17:53)
--- NOTE | 2018-07-16 10:29 | P.PNCA ---
Subjective Interval history: Minimal dyspnea this morning. No CP, dizziness, palpitations. Medications and Allergies Active Medications: Active Medications Acetaminophen (Tylenol) 650 mg PO Q4H PRN PRN Reason: Temp > 100.4 Albuterol (Albuterol Neb (Prn)) 2.5 mg NEB ONCE PRN PRN Reason: SHORTNESS OF BREATH Last Admin: 07/12/18 16:10 Dose: 2.5 mg Albuterol (Duoneb Neb ([facility])) 1 ampul NEB Q4HR [facility] Last Admin: 07/16/18 07:22 Dose: 1 ampul Alprazolam (Xanax) 0.25 mg PO Q12H PRN PRN Reason: ANXIETY Last Admin: 07/15/18 21:45 Dose: 0.25 mg Apixaban (Eliquis) 5 mg PO BID [facility] Last Admin: 07/16/18 08:11 Dose: 5 mg Flecainide Acetate (Tambocor) 100 mg PO BID [facility] Last Admin: 07/16/18 08:11 Dose: 100 mg Furosemide (Lasix Inj) 60 mg IV.PUSH Q12H [facility] Last Admin: 07/16/18 00:17 Dose: 60 mg Hydromorphone HCl (Dilaudid Pf Inj) 0.5 mg IV.PUSH ONCE PRN PRN Reason: ABDOMINAL PAIN Last Admin: 07/09/18 00:54 Dose: 0.5 mg Metronidazole/Sodium Chloride (Flagyl 500 Mg Inj) 100 mls @ 100 mls/hr IV.SIG Q8H [facility] Last Admin: 07/16/18 07:36 Dose: 100 mls/hr Lactated Ringer's (Lr 1000 Ml Inj) 1,000 mls @ 30 mls/hr IV.SIG .Q24H [facility] Last Admin: 07/15/18 07:27 Dose: Not Given Sodium Chloride (Ns Inj) 500 mls @ 30 mls/hr IV.SIG .Q10H [facility] Last Admin: 07/15/18 07:28 Dose: Not Given Cefepime HCl 2,000 mg/ Sodium (Chloride) 100 mls @ 200 mls/hr IV.SIG Q8H [facility] Last Infusion: 07/16/18 05:57 Dose: Infused Potassium Chloride (Kcl 20 Meq Premix Inj) 20 meq in 100 mls @ 50 mls/hr IV.SIG Q2H [facility] Stop: 07/16/18 16:44 Last Admin: 07/16/18 09:08 Dose: 50 mls/hr Levothyroxine Sodium (Synthroid) 50 mcg PO DAILY@0600 [facility] Last Admin: 07/16/18 05:27 Dose: 50 mcg Ondansetron HCl (Zofran Inj) 4 mg IV.PUSH Q6H PRN PRN Reason: NAUSEA OR VOMITING Last Admin: 07/12/18 21:03 Dose: 4 mg Patch Removal (Remove Old Patch) 1 each T-DERMAL Q7D [facility] Last Admin: 07/12/18 17:38 Dose: 1 each Potassium Chloride (K-Dur) 20 meq PO DAILY [facility] Last Admin: 07/16/18 08:11 Dose: 20 meq Sodium Chloride (Ns Flush) 2 ml IV.FLUSH BID [facility] Last Admin: 07/16/18 08:11 Dose: 2 ml Sodium Chloride (Ns Flush) 2 ml IV.FLUSH PRN PRN PRN Reason: FLUSH AFTER USING IV ACCESS Allergies Allergy/AdvReac Type Severity Reaction Status Date / Time cefaclor Allergy Severe RASH Verified 07/04/18 09:33 paroxetine Allergy Severe Rash Verified 07/04/18 09:33 Sulfa (Sulfonamide Allergy Severe RASH Verified 07/04/18 09:33 Antibiotics) ciprofloxacin Allergy Unknown GI UPSET Verified 07/04/18 09:33 clonidine Allergy Unknown SKIN Verified 07/04/18 09:33 IRRITATION latex bandages AdvReac Mild SKIN Uncoded 07/02/18 10:47 REDNESS, RASH Home Medications Medication Instructions Recorded Confirmed Type alprazolam 0.25 mg PO BID PRN 05/18/18 07/08/18 History amiodarone 200 mg PO DAILY 05/18/18 07/08/18 History apixaban [Eliquis] 5 mg PO BID 05/18/18 07/08/18 History estradiol 0.5 mg PO WEEKLY 05/18/18 07/08/18 History levothyroxine 50 mcg PO DAILY 05/18/18 07/08/18 History potassium chloride 20 meq PO DAILY 05/18/18 07/08/18 History Physical Exam Vital signs: Vital Signs 07/15/18 10:41 07/15/18 11:00 07/15/18 11:35 Temperature Pulse Rate 111 H 108 H 96 H Respiratory Rate 22 20 26 H Blood Pressure 118/62 Pulse Oximetry 98 97 99 07/15/18 11:41 07/15/18 12:00 07/15/18 12:42 Temperature 99.1 F Pulse Rate 96 H 101 H 105 H Respiratory Rate 23 22 Blood Pressure 114/55 L 96/67 L Pulse Oximetry 97 98 100 07/15/18 13:00 07/15/18 13:42 07/15/18 14:00 Temperature Pulse Rate 102 H 110 H 105 H Respiratory Rate 28 H 31 H 32 H Blood Pressure 122/60 Pulse Oximetry 93 L 90 L 96 07/15/18 14:42 07/15/18 15:00 07/15/18 15:42 Temperature Pulse Rate 105 H 124 H 106 H Respiratory Rate 23 29 H 80 H Blood Pressure 137/61 118/56 L Pulse Oximetry 94 L 90 L 93 L 07/15/18 16:00 07/15/18 16:32 07/15/18 16:33 Temperature 98.7 F Pulse Rate 105 H 102 H Respiratory Rate 37 H 28 H Blood Pressure Pulse Oximetry 92 L 95 07/15/18 16:42 07/15/18 17:00 07/15/18 17:42 Temperature Pulse Rate 97 H 100 H 102 H Respiratory Rate 28 H 30 H 33 H Blood Pressure 114/65 117/56 L Pulse Oximetry 93 L 92 L 94 L 07/15/18 18:00 07/15/18 19:00 07/15/18 19:27 Temperature Pulse Rate 95 H 102 H 115 H Respiratory Rate 33 H 85 H 22 Blood Pressure 118/56 L Pulse Oximetry 93 L 89 L 94 L 07/15/18 20:00 07/15/18 21:00 07/15/18 22:00 Temperature Pulse Rate 111 H 110 H 105 H Respiratory Rate 111 H 24 23 Blood Pressure 114/55 L 108/61 110/59 L Pulse Oximetry 94 L 95 97 07/15/18 23:10 07/16/18 00:00 07/16/18 01:00 Temperature Pulse Rate 99 H 107 H 104 H Respiratory Rate 23 24 21 Blood Pressure 118/57 L 116/55 L Pulse Oximetry 95 98 07/16/18 02:00 07/16/18 03:00 07/16/18 03:53 Temperature Pulse Rate 99 H 98 H 102 H Respiratory Rate 20 19 22 Blood Pressure 108/54 L 94/50 L Pulse Oximetry 99 98 07/16/18 04:00 07/16/18 05:00 07/16/18 06:00 Temperature Pulse Rate 98 H 99 H 97 H Respiratory Rate 22 22 81 H Blood Pressure 97/56 L 107/53 L 112/59 L Pulse Oximetry 100 100 91 L 07/16/18 07:23 Temperature Pulse Rate 98 H Respiratory Rate 14 Blood Pressure Pulse Oximetry 100 Intake & Output 07/15/18 07/16/18 07/16/18 18:59 06:59 18:59 Intake Total 1670 / 1670 540 / 540 Output Total 1200 / 1200 1225 / 1225 Balance 470 / 470 -685 / -685 Weight 66.5 kg Intake: IV 655 / 655 300 / 300 Maxipime Inj 2,000 MG In NS Inj 100 / 100 200 / 200 100 ML @ 200 mls/hr IV.SIG Q8H [facility] Rx#:[id number] Magnesium Sulfate Inj 2 GM In 100 / 100 NS Inj 96 ML @ 50 mls/hr IV.SIG ONCE ONE Rx#:[id number] KCl 40 mEq Premix Inj 40 meq In 100 / 100 100 ml @ 25 mls/hr IV.SIG ONCE ONE Rx#:[id number] Potassium Phosphate Inj 15 MMOL 155 / 155 In NS Inj 150 ML @ 38.75 mls/ hr IV.SIG ONCE ONE Rx#:[id number] Flagyl 500 MG Inj 100 ML @ 100 200 / 200 100 / 100 mls/hr IV.SIG Q8H [facility] Rx#: [id number] Oral 1015 / 1015 240 / 240 Output: Urine Amount (Catheter) 1200 / 1200 1225 / 1225 Indwelling Urethral Catheter 1200 / 1200 1225 / 1225 Other: Date of Last Bowel Movement 07/15/18 07/16/18 # Bowel Movements 1 1 - Constitutional no acute distress - Routine Neck Exam Absent: JVD - Routine Respiratory Exam Present: decreased breath sounds - Routine Cardiovascular Exam Present: S1, S2, irregularly irregular. Absent: murmur, gallop - Routine Abdominal Exam Present: soft, normoactive bowel sounds. Absent: tenderness - Routine Extremities Exam Absent: cyanosis, clubbing, edema - Urinary Catheter Management Indwelling Urethral Catheter Cath placed during this visit: yes Reason for continuing: Hourly intake/output Insertion date: 07/13/18 Insertion time: 14:30 Results 07/16/18 04:01 07/16/18 04:01 Cardiac Enzymes 07/15/18 Range/Units 04:44 B-Natriuretic Peptide 216 H (0-100) pg/mL Coagulation 07/15/18 Range/Units 04:44 B-Natriuretic Peptide 216 H (0-100) pg/mL CBC 07/16/18 Range/Units 04:01 WBC 15.6 H (4.0-11.0) th/mm3 RBC 3.51 L (4.00-5.30) mil/mm3 Hgb 11.1 L (11.6-15.3) gm/dL Hct 33.2 L (35.0-46.0) % Plt Count 241 (150-450) th/mm3 Neut # (Auto) 13.1 H (1.8-7.7) th/mm3 Lymph # (Auto) 1.3 (1.0-4.8) th/mm3 [place] # (Auto) 1.1 H (0.0-0.9) th/mm3 Eos # (Auto) 0.2 (0.0-0.4) th/mm3 Baso # (Auto) 0.1 (0.0-0.2) th/mm3 Comprehensive Metabolic Panel 07/14/18 07/15/18 07/15/18 Range/Units 21:11 04:44 21:51 Sodium 134 L 136 137 (136-145) meq/L Potassium 4.4 D 3.1 L D 3.8 (3.5-5.1) meq/L Chloride 100 97 L 99 (98-107) meq/L Carbon Dioxide 27.3 28.7 28.3 (21.0-32.0) meq/L BUN 13 14 18 (7-18) mg/dL Creatinine 0.90 0.94 1.00 (0.50-1.00) mg/dL Calcium 7.5 L 7.4 L* 7.6 L (8.5-10.1) mg/dL Albumin 2.3 L (3.4-5.0) g/dL 07/16/18 Range/Units 04:01 Sodium 134 L (136-145) meq/L Potassium 2.9 L* D (3.5-5.1) meq/L Chloride 97 L (98-107) meq/L Carbon Dioxide 26.6 (21.0-32.0) meq/L BUN 21 H (7-18) mg/dL Creatinine 1.19 H (0.50-1.00) mg/dL Calcium 7.9 L (8.5-10.1) mg/dL Albumin (3.4-5.0) g/dL Intake and Output 07/15/18 07/16/18 07/16/18 22:59 06:59 14:59 Intake Total 1215 / 1215 440 / 440 Output Total 1200 / 1200 1225 / 1225 Balance 15 / 15 -785 / -785 Intake: IV 200 / 200 200 / 200 Maxipime Inj 2,000 MG In NS Inj 100 / 100 100 / 100 100 ML @ 200 mls/hr IV.SIG Q8H [facility] Rx#:[id number] Flagyl 500 MG Inj 100 ML @ 100 100 / 100 100 / 100 mls/hr IV.SIG Q8H [facility] Rx#: [id number] Oral 1015 / 1015 240 / 240 Output: Urine Amount (Catheter) 1200 / 1200 1225 / 1225 Indwelling Urethral Catheter 1200 / 1200 1225 / 1225 Other: Date of Last Bowel Movement 07/15/18 07/16/18 # Bowel Movements 1 1 Weight 66.5 kg - Imaging and Cardiology Imaging: Impressions Chest X-Ray 07/14/18 00:00 CONCLUSION: Worsening aeration Chest CTA 07/15/18 00:00 CONCLUSION: 1. This study is negative for pulmonary embolism. 2. Moderately-sized bilateral pleural effusions. 3. Ground-glass infiltrates are noted bilaterally consistent with mild pulmonary vascular congestion or possible pneumonia. Clinical correlation is recommended. 4. Bibasilar compressive atelectasis. 5. Minimally prominent pretracheal, subcarinal and AP window mediastinal as well as right hilar lymph nodes which are nonspecific. 6. Cardiomegaly and coronary artery calcifications. 7. Small hiatal hernia. Assessment and Plan - Assessment (1) Bradycardia Code(s): R00.1 - Bradycardia, unspecified Status: Acute (2) Colitis Code(s): K52.9 - Noninfective gastroenteritis and colitis, unspecified Status : Acute (3) Afib Code(s): I48.91 - Unspecified atrial fibrillation Status: Acute (4) Hypertension Code(s): I10 - Essential (primary) hypertension Status: Acute (5) Hypothyroid Code(s): E03.9 - Hypothyroidism, unspecified Status: Acute (6) Anxiety Code(s): F41.9 - Anxiety disorder, unspecified Status: Acute (7) SKY (acute kidney injury) Code(s): N17.9 - Acute kidney failure, unspecified Status: Acute (8) Sepsis associated hypotension Code(s): A41.9 - Sepsis, unspecified organism; I95.9 - Hypotension, unspecified Status: Resolved - Plan 1. Abdominal pain, which appears to be due to colitis. Clinically better 2. Sepsis. Resolved, most likely secondary to colitis 3. Hypotension responsive to IV fluids. Resolved 4. Acute bradycardia secondary to medications. Amiodarone stopped Metoprolol held HR's acceptable at the present time. Consider pacemaker implantation. 5. Difficult to control atrial fibrillation with history of atrial fibrillation ablation x 2 and atrial flutter ablation x 1. Appears to be in mostly atrial flutter with variable AV conduction, HR's acceptable. Continue apixaban, flecainide. 6. Previous hypothermia. 7. Acute kidney injury. 8. Flash pulmonary edema EKG with minimal changes, similar to previous Most likely due to known moderate to severe MR Troponins minimal and decreasing, most likely type 2 Repeat echo with no significant change Overall feel this is not due to coronary artery disease, but most likely her mitral regurgitation Bilateral pleural effusion If not decreasing oxygen demand, may need thoracentesis Will need work up for mitral valve regurgitation She would prefer to get better and do electively, will have to see how hospital course progresses If not better, may need to consider Mitral Clip Code Status: full Discussed Condition With: patient and family, at length
--- NOTE | 2018-07-16 11:38 | P.PNCC ---
Subjective Subjective Remarks/Hospital Course: 07/10: Afebrile. Patient awake and alert. Overnight heart rate range 48-60's. Flecainide dose was held last p.m. and review of the MAR. Today the patient was noted to be sustaining a MAP 60-61, patient received 250 cc 5% albumin and remained normotensive. Patient tolerating clear liquid diet. 07/11: Patient hemodynamically stable heart rate 50s-70s. Patient continues on flecainide. She was noted to have a positive stool for occult blood yesterday afternoon GI was consulted per plans for panendoscopy in the near future peer Eliquis was placed on hold. The patient was noted to have a low potassium level this a.m. 20 mEq IV was provided along with additional scheduled dosing of p.o. potassium. 07/13: The patient developed hypoxemic respiratory failure today and is being transferred to the intensive care unit for a higher level of care. Results of the endoscopies presently not available, but will review. Chest x-ray looks like pulmonary edema with bilateral hilar congestion and prominent pulmonary veins. 07/14: Persistent hypoxemia today with labored breathing. Diuresis over 2 L yesterday however respiratory status remains compromised. Multiple electrolyte abnormalities, now being replaced. She has remained in sinus rhythm. 07/15: Requiring less concentrated oxygen this morning. Negative fluid balance for 2 days now without worsening renal function. Persistent leukocytosis concerning but she remains afebrile. Back in atrial fibrillation, rate controlled we will continue to treat this is simple fluid overload but I think it is worth continuing to cover her for bacterial pneumonia. 07/16: Continues to require decreasing amounts of inspired oxygen. Requires very aggressive diuretic therapy to stay out of pulmonary edema. Hopefully we can keep her out of pulmonary edema with a diuretic dose that will not impair renal function. Continue to aggressively replace potassium as expected. Objective Vital Signs / I&O: Vital Signs 07/15/18 11:35 07/15/18 11:41 07/15/18 12:00 Temperature Pulse Rate 96 H 96 H 101 H Respiratory Rate 26 H 23 22 Blood Pressure 114/55 L Pulse Oximetry 99 97 98 07/15/18 12:42 07/15/18 13:00 07/15/18 13:42 Temperature 99.1 F Pulse Rate 105 H 102 H 110 H Respiratory Rate 28 H 31 H Blood Pressure 96/67 L 122/60 Pulse Oximetry 100 93 L 90 L 07/15/18 14:00 07/15/18 14:42 07/15/18 15:00 Temperature Pulse Rate 105 H 105 H 124 H Respiratory Rate 32 H 23 29 H Blood Pressure 137/61 Pulse Oximetry 96 94 L 90 L 07/15/18 15:42 07/15/18 16:00 07/15/18 16:32 Temperature 98.7 F Pulse Rate 106 H 105 H 102 H Respiratory Rate 80 H 37 H 28 H Blood Pressure 118/56 L Pulse Oximetry 93 L 92 L 07/15/18 16:33 07/15/18 16:42 07/15/18 17:00 Temperature Pulse Rate 97 H 100 H Respiratory Rate 28 H 30 H Blood Pressure 114/65 Pulse Oximetry 95 93 L 92 L 07/15/18 17:42 07/15/18 18:00 07/15/18 19:00 Temperature Pulse Rate 102 H 95 H 102 H Respiratory Rate 33 H 33 H 85 H Blood Pressure 117/56 L 118/56 L Pulse Oximetry 94 L 93 L 89 L 07/15/18 19:27 07/15/18 20:00 07/15/18 21:00 Temperature Pulse Rate 115 H 111 H 110 H Respiratory Rate 22 111 H 24 Blood Pressure 114/55 L 108/61 Pulse Oximetry 94 L 94 L 95 07/15/18 22:00 07/15/18 23:10 07/16/18 00:00 Temperature Pulse Rate 105 H 99 H 107 H Respiratory Rate 23 23 24 Blood Pressure 110/59 L 118/57 L Pulse Oximetry 97 95 07/16/18 01:00 07/16/18 02:00 07/16/18 03:00 Temperature Pulse Rate 104 H 99 H 98 H Respiratory Rate 21 20 19 Blood Pressure 116/55 L 108/54 L 94/50 L Pulse Oximetry 98 99 98 07/16/18 03:53 07/16/18 04:00 07/16/18 05:00 Temperature Pulse Rate 102 H 98 H 99 H Respiratory Rate 22 22 22 Blood Pressure 97/56 L 107/53 L Pulse Oximetry 100 100 07/16/18 06:00 07/16/18 07:23 Temperature Pulse Rate 97 H 98 H Respiratory Rate 81 H 14 Blood Pressure 112/59 L Pulse Oximetry 91 L 100 Intake & Output 07/15/18 07/16/18 07/16/18 18:59 06:59 18:59 Intake Total 1670 / 1670 540 / 540 100 / 100 Output Total 1200 / 1200 1225 / 1225 Balance 470 / 470 -685 / -685 100 / 100 Weight 66.5 kg Intake: IV 655 / 655 300 / 300 100 / 100 Maxipime Inj 2,000 MG In NS Inj 100 / 100 200 / 200 100 ML @ 200 mls/hr IV.SIG Q8H ERI[facility] Rx#:[id number] Magnesium Sulfate Inj 2 GM In 100 / 100 NS Inj 96 ML @ 50 mls/hr IV.SIG ONCE ONE Rx#:[id number] KCl 20 mEq Premix Inj 20 meq In 100 / 100 100 ml @ 50 mls/hr IV.SIG Q2H E[facility] Rx#:[id number] KCl 40 mEq Premix Inj 40 meq In 100 / 100 100 ml @ 25 mls/hr IV.SIG ONCE ONE Rx#:[id number] Potassium Phosphate Inj 15 MMOL 155 / 155 In NS Inj 150 ML @ 38.75 mls/ hr IV.SIG ONCE ONE Rx#:[id number] Flagyl 500 MG Inj 100 ML @ 100 200 / 200 100 / 100 mls/hr IV.SIG Q8H [facility] Rx#: [id number] Oral 1015 / 1015 240 / 240 Output: Urine Amount (Catheter) 1200 / 1200 1225 / 1225 Indwelling Urethral Catheter 1200 / 1200 1225 / 1225 Other: Date of Last Bowel Movement 07/15/18 07/16/18 # Bowel Movements 1 1 Result Diagrams: 07/16/18 04:01 07/16/18 04:01 Objective Remarks: GENERAL: Weak, elderly female SKIN: Warm and dry. Large areas of bruising both arms HEAD: Atraumatic. Normocephalic. EYES: Pupils equal and round. No scleral icterus. No injection or drainage. ENT: No nasal bleeding or discharge. Mucous membranes pink and moist. NECK: Trachea midline. Airway widely patent, no obstructive noises with breathing CARDIOVASCULAR: Irregular irregular, rate controlled, no JVD RESPIRATORY: Some accessory muscle use is present. Generally clear but crackles persist. Less dry cough. GASTROINTESTINAL: Abdomen soft, non-tender, nondistended. No guarding. Bowel sounds active MUSCULOSKELETAL: Extremities without clubbing, cyanosis, or edema. Small multiple areas of ecchymotic bruising on forearms, no obvious deformities. NEUROLOGICAL: Awake and alert. RASS 0. No gross focal/sensory deficits. Follows commands in all 4 extremities. Weak Assessment and Plan - Assessment and Plan Plan: Active problems: Severe sepsis Hypotension-resolved acute bradycardia possible amiodarone toxicity hypothermia colitis, unclear etiology acute kidney injury GI bleed Plan Adjust FiO2 to keep sats greater than 92%. Continue Flagyl, cefepime iv c. diff PCR negative 2d echo unchanged from previous strict i/o's, limit tap water ingestion daily bmp, cbc, mag, phosphorus. Review arrhythmia management with cardiology service Continue aggressive replacement of potassium, magnesium, and phosphorus. We will hopefully be able to back off on diuretic dose once the fluid load from the IV antibiotics is passed. Overall impression: Physically and radiographically this appears to have been flash pulmonary edema. She is clearly improving with diuresis, helped by heart rate control. Remains fragile and weak.
--- NOTE | 2018-07-16 11:39 | P.PNFP ---
Subjective Interval history: Patient on 6 L of nasal cannula oxygen this morning. States that she probably had some good sleep last night. States that she thinks she may be seeing things and hearing things that are not there. States that when she closes her eyes she can see images and hear voices. States that she feels better from yesterday but overall does not feel great. No chest pain shortness of breath, constipation or diarrhea, burning with urination. Has required significant amounts of potassium supplementation overnight. Patient is interested in having a medication that better controls her anxiety than Xanax. States it is too short acting. Has been in A. fib since yesterday. Patient denies palpitations or lightheadedness. <Abid BaironKikeLouann N - 07/16/18 11:39> Results - Labs Result diagrams: 07/16/18 04:01 07/17/18 05:30 <Oliver Wilson - 07/17/18 08:55> Abnormal lab results 07/17/18 Range/Units 05:30 Sodium 132 L (136-145) meq/L BUN 25 H (7-18) mg/dL Creatinine 1.11 H (0.50-1.00) mg/dL Estimated GFR 47 L (>89) mL/min Random Glucose 150 H (74-106) mg/dL Calcium 8.0 L (8.5-10.1) mg/dL BMP 07/17/18 05:30 Sodium 132 L Potassium 4.3 D Chloride 98 Carbon Dioxide 26.3 BUN 25 H Creatinine 1.11 H Calcium 8.0 L <Oliver Wilson - 07/17/18 08:55> Abnormal lab results 07/15/18 07/16/18 07/16/18 Range/Units 21:51 04:01 04:01 WBC 15.6 H (4.0-11.0) th/mm3 RBC 3.51 L (4.00-5.30) mil/mm3 Hgb 11.1 L (11.6-15.3) gm/dL Hct 33.2 L (35.0-46.0) % Neut % (Auto) 83.6 H (16.0-70.0) % Lymph % (Auto) 8.0 L (9.0-44.0) % Neut # (Auto) 13.1 H (1.8-7.7) th/mm3 [place] # (Auto) 1.1 H (0.0-0.9) th/mm3 Seg Neuts % (Manual) 82 H (16-70) % Metamyelocytes % (Man) 2 H (0-1) % Abs Neuts (Manual) 13.3 H (1.8-7.7) th/mm3 Sodium 134 L (136-145) meq/L Potassium 2.9 L* D (3.5-5.1) meq/L Chloride 97 L (98-107) meq/L BUN 21 H (7-18) mg/dL Creatinine 1.19 H (0.50-1.00) mg/dL Estimated GFR 53 L 44 L (>89) mL/min Random Glucose 141 H 144 H (74-106) mg/dL Calcium 7.6 L 7.9 L (8.5-10.1) mg/dL Short CBC 07/16/18 Range/Units 04:01 WBC 15.6 H (4.0-11.0) th/mm3 Hgb 11.1 L (11.6-15.3) gm/dL Hct 33.2 L (35.0-46.0) % Plt Count 241 (150-450) th/mm3 BMP 07/15/18 07/16/18 21:51 04:01 Sodium 137 134 L Potassium 3.8 2.9 L* D Chloride 99 97 L Carbon Dioxide 28.3 26.6 BUN 18 21 H Creatinine 1.00 1.19 H Calcium 7.6 L 7.9 L <AbiLouann Delgadillo N - 07/16/18 11:39> - Imaging Impressions Chest X-Ray 07/17/18 04:00 CONCLUSION: Substantially decreased pleural effusions and basilar consolidation, now small/ mild. <Oliver Wilson - 07/17/18 08:55> Impressions Chest CTA 07/15/18 00:00 CONCLUSION: 1. This study is negative for pulmonary embolism. 2. Moderately-sized bilateral pleural effusions. 3. Ground-glass infiltrates are noted bilaterally consistent with mild pulmonary vascular congestion or possible pneumonia. Clinical correlation is recommended. 4. Bibasilar compressive atelectasis. 5. Minimally prominent pretracheal, subcarinal and AP window mediastinal as well as right hilar lymph nodes which are nonspecific. 6. Cardiomegaly and coronary artery calcifications. 7. Small hiatal hernia. <Abid R2,Louann N - 07/16/18 11:39> Physical Exam Vital signs: Vital Signs 07/16/18 09:00 07/16/18 09:42 07/16/18 10:00 Temperature Pulse Rate 101 H 100 H 110 H Respiratory Rate 73 H 31 H 27 H Blood Pressure 114/63 Pulse Oximetry 98 97 97 07/16/18 10:42 07/16/18 11:00 07/16/18 11:42 Temperature Pulse Rate 104 H 108 H 111 H Respiratory Rate 36 H 21 32 H Blood Pressure 133/61 119/66 Pulse Oximetry 96 99 98 07/16/18 11:46 07/16/18 12:00 07/16/18 12:42 Temperature 98.6 F Pulse Rate 114 H 110 H 113 H Respiratory Rate 20 23 38 H Blood Pressure 123/55 L Pulse Oximetry 100 98 07/16/18 13:00 07/16/18 13:42 07/16/18 14:00 Temperature Pulse Rate 112 H 109 H 111 H Respiratory Rate 58 H 30 H 40 H Blood Pressure 116/58 L Pulse Oximetry 97 96 98 07/16/18 14:42 07/16/18 15:00 07/16/18 15:45 Temperature Pulse Rate 107 H 109 H 128 H Respiratory Rate 40 H 33 H 102 H Blood Pressure 127/61 125/100 H Pulse Oximetry 96 99 07/16/18 15:48 07/16/18 16:00 07/16/18 16:42 Temperature 98 F Pulse Rate 112 H 107 H 90 Respiratory Rate 22 130 H 104 H Blood Pressure 115/53 L Pulse Oximetry 100 99 07/16/18 17:00 07/16/18 17:42 07/16/18 18:00 Temperature Pulse Rate 92 H 91 H 90 Respiratory Rate 129 H 108 H 31 H Blood Pressure 114/58 L Pulse Oximetry 99 98 99 07/16/18 19:00 07/16/18 19:42 07/16/18 20:00 Temperature 98.4 F Pulse Rate 104 H 105 H 103 H Respiratory Rate 120 H 133 H 140 H Blood Pressure 120/57 L Pulse Oximetry 99 99 98 07/16/18 20:07 07/16/18 20:09 07/16/18 20:42 Temperature Pulse Rate 124 H 110 H Respiratory Rate 19 0 L Blood Pressure 123/58 L Pulse Oximetry 98 98 07/16/18 21:00 07/16/18 21:42 07/16/18 22:00 Temperature Pulse Rate 108 H 109 H 108 H Respiratory Rate 22 24 25 H Blood Pressure 106/55 L Pulse Oximetry 100 98 96 07/16/18 22:42 07/16/18 23:00 07/16/18 23:20 Temperature Pulse Rate 111 H 109 H 108 H Respiratory Rate 21 32 H 19 Blood Pressure 128/60 Pulse Oximetry 97 96 07/16/18 23:42 07/17/18 00:00 07/17/18 00:42 Temperature 99.0 F Pulse Rate 110 H 110 H 110 H Respiratory Rate 21 21 22 Blood Pressure 115/56 L 113/57 L Pulse Oximetry 95 95 95 07/17/18 01:00 07/17/18 01:42 07/17/18 02:00 Temperature Pulse Rate 109 H 110 H 110 H Respiratory Rate 23 22 25 H Blood Pressure 116/55 L Pulse Oximetry 98 97 97 07/17/18 02:42 07/17/18 03:00 07/17/18 03:42 Temperature Pulse Rate 111 H 112 H Respiratory Rate 23 23 107 H Blood Pressure 110/57 L 123/61 Pulse Oximetry 97 97 96 07/17/18 04:00 07/17/18 04:42 07/17/18 05:00 Temperature 98.9 F Pulse Rate 113 H 91 H 103 H Respiratory Rate 147 H 80 H 97 H Blood Pressure 116/58 L Pulse Oximetry 99 98 98 07/17/18 06:00 07/17/18 06:42 07/17/18 07:00 Temperature Pulse Rate 79 78 79 Respiratory Rate 27 H 21 19 Blood Pressure 121/57 L 121/57 L Pulse Oximetry 98 99 07/17/18 07:42 07/17/18 07:46 07/17/18 08:00 Temperature 98.1 F Pulse Rate 77 77 79 Respiratory Rate 17 17 29 H Blood Pressure 112/54 L Pulse Oximetry 99 99 100 07/17/18 08:42 Temperature Pulse Rate 80 Respiratory Rate 25 H Blood Pressure 124/58 L Pulse Oximetry 97 Intake & Output 07/16/18 07/17/18 07/17/18 18:59 06:59 18:59 Intake Total 1280 / 1280 860 / 860 Output Total 900 / 900 1250 / 1250 Balance 380 / 380 -390 / -390 Weight 67.8 kg Intake: IV 400 / 400 400 / 400 Maxipime Inj 2,000 MG In NS Inj 100 / 100 100 ML @ 200 mls/hr IV.SIG Q12H ERIK Rx#:[id number] KCl 20 mEq Premix Inj 20 meq In 300 / 300 100 ml @ 50 mls/hr IV.SIG Q2H ERIK Rx#:[id number] Flagyl 500 MG Inj 100 ML @ 100 100 / 100 200 / 200 mls/hr IV.SIG Q8H ERIK Rx#: [id number] Oral 880 / 880 460 / 460 Output: Urine Amount (Catheter) 900 / 900 1250 / 1250 Indwelling Urethral Catheter 900 / 900 1250 / 1250 Other: Date of Last Bowel Movement 07/16/18 07/17/18 07/17/18 # Bowel Movements 1 <Oliver Wilson - 07/17/18 08:55> Vital Signs 07/15/18 11:35 07/15/18 11:41 07/15/18 12:00 Temperature Pulse Rate 96 H 96 H 101 H Respiratory Rate 26 H 23 22 Blood Pressure 114/55 L Pulse Oximetry 99 97 98 07/15/18 12:42 07/15/18 13:00 07/15/18 13:42 Temperature 99.1 F Pulse Rate 105 H 102 H 110 H Respiratory Rate 28 H 31 H Blood Pressure 96/67 L 122/60 Pulse Oximetry 100 93 L 90 L 07/15/18 14:00 07/15/18 14:42 07/15/18 15:00 Temperature Pulse Rate 105 H 105 H 124 H Respiratory Rate 32 H 23 29 H Blood Pressure 137/61 Pulse Oximetry 96 94 L 90 L 07/15/18 15:42 07/15/18 16:00 07/15/18 16:32 Temperature 98.7 F Pulse Rate 106 H 105 H 102 H Respiratory Rate 80 H 37 H 28 H Blood Pressure 118/56 L Pulse Oximetry 93 L 92 L 07/15/18 16:33 07/15/18 16:42 07/15/18 17:00 Temperature Pulse Rate 97 H 100 H Respiratory Rate 28 H 30 H Blood Pressure 114/65 Pulse Oximetry 95 93 L 92 L 07/15/18 17:42 07/15/18 18:00 07/15/18 19:00 Temperature Pulse Rate 102 H 95 H 102 H Respiratory Rate 33 H 33 H 85 H Blood Pressure 117/56 L 118/56 L Pulse Oximetry 94 L 93 L 89 L 07/15/18 19:27 07/15/18 20:00 07/15/18 21:00 Temperature Pulse Rate 115 H 111 H 110 H Respiratory Rate 22 111 H 24 Blood Pressure 114/55 L 108/61 Pulse Oximetry 94 L 94 L 95 07/15/18 22:00 07/15/18 23:10 07/16/18 00:00 Temperature Pulse Rate 105 H 99 H 107 H Respiratory Rate 23 23 24 Blood Pressure 110/59 L 118/57 L Pulse Oximetry 97 95 07/16/18 01:00 07/16/18 02:00 07/16/18 03:00 Temperature Pulse Rate 104 H 99 H 98 H Respiratory Rate 21 20 19 Blood Pressure 116/55 L 108/54 L 94/50 L Pulse Oximetry 98 99 98 07/16/18 03:53 07/16/18 04:00 07/16/18 05:00 Temperature Pulse Rate 102 H 98 H 99 H Respiratory Rate 22 22 22 Blood Pressure 97/56 L 107/53 L Pulse Oximetry 100 100 07/16/18 06:00 07/16/18 07:23 Temperature Pulse Rate 97 H 98 H Respiratory Rate 81 H 14 Blood Pressure 112/59 L Pulse Oximetry 91 L 100 Intake & Output 07/15/18 07/16/18 07/16/18 18:59 06:59 18:59 Intake Total 1670 / 1670 540 / 540 100 / 100 Output Total 1200 / 1200 1225 / 1225 Balance 470 / 470 -685 / -685 100 / 100 Weight 66.5 kg Intake: IV 655 / 655 300 / 300 100 / 100 Maxipime Inj 2,000 MG In NS Inj 100 / 100 200 / 200 100 ML @ 200 mls/hr IV.SIG Q8H [facility] Rx#:[id number] Magnesium Sulfate Inj 2 GM In 100 / 100 NS Inj 96 ML @ 50 mls/hr IV.SIG ONCE ONE Rx#:[id number] KCl 20 mEq Premix Inj 20 meq In 100 / 100 100 ml @ 50 mls/hr IV.SIG Q2H [facility] Rx#:[id number] KCl 40 mEq Premix Inj 40 meq In 100 / 100 100 ml @ 25 mls/hr IV.SIG ONCE ONE Rx#:[id number] Potassium Phosphate Inj 15 MMOL 155 / 155 In NS Inj 150 ML @ 38.75 mls/ hr IV.SIG ONCE ONE Rx#:[id number] Flagyl 500 MG Inj 100 ML @ 100 200 / 200 100 / 100 mls/hr IV.SIG Q8H [facility] Rx#: [id number] Oral 1015 / 1015 240 / 240 Output: Urine Amount (Catheter) 1200 / 1200 1225 / 1225 Indwelling Urethral Catheter 1200 / 1200 1225 / 1225 Other: Date of Last Bowel Movement 07/15/18 07/16/18 # Bowel Movements 1 1 <Louann Gonzalez N - 07/16/18 11:39> Narrative: GENERAL: Elderly appearing female, sitting up in bed on 6 L nasal cannula oxygen SKIN: Warm and dry. Multiple ecchymoses over bilateral shins and arms. HEAD: Normocephalic. CARDIOVASCULAR: regular rhythm and rate. 3/6 holosystolic murmur at the apex RESPIRATORY: No bilateral crackles or rhonchi heard. Inspiratory airflow improved from yesterday. GASTROINTESTINAL: Abdomen soft and nontender in any quadrant. Normal bowel sounds appreciated. Nondistended. MUSCULOSKELETAL: No cyanosis, or edema. Moves all extremities spontaneously. <Betydianne Louann Waddell N - 07/16/18 11:39> - Urinary Catheter Management Indwelling Urethral Catheter Cath placed during this visit: no <Oliver Wilson - 07/17/18 08:55> yes <Betydianne Louann Waddell N - 07/16/18 11:39> Reason for continuing: Hourly intake/output <Abid Louann Waddell N - 07/16/18 11:39 > Insertion date: 07/13/18 <Abid Louann Waddell N - 07/16/18 11:39> Insertion time: 14:30 <Abid Louann Waddell N - 07/16/18 11:39> Assessment and Plan - Assessment (1) Acute hypoxemic respiratory failure Code(s): J96.01 - Acute respiratory failure with hypoxia Status: Acute (2) Mitral regurgitation Code(s): I34.0 - Nonrheumatic mitral (valve) insufficiency Status: Acute (3) Colitis Code(s): K52.9 - Noninfective gastroenteritis and colitis, unspecified Status : Acute (4) Electrolyte abnormality Code(s): E87.8 - Other disorders of electrolyte and fluid balance, not elsewhere classified Status: Acute (5) Afib Code(s): I48.91 - Unspecified atrial fibrillation Status: Acute (6) Anxiety Code(s): F41.9 - Anxiety disorder, unspecified Status: Acute (7) Hypothyroid Code(s): E03.9 - Hypothyroidism, unspecified Status: Acute (8) Sepsis associated hypotension Code(s): A41.9 - Sepsis, unspecified organism; I95.9 - Hypotension, unspecified Status: Resolved <Oliver Wilson - 07/17/18 08:55> (1) Acute hypoxemic respiratory failure Code(s): J96.01 - Acute respiratory failure with hypoxia Status: Acute Plan: Flash pulmonary edema after EGD and colonoscopy 07/13 CC consulted to assist in management and monitor, based on complexity of patient 's risk factors and comorbidities IV cefepime started (day #3) to cover for possible HCAP Repeat echo 07/14 showed worsening of ejection fraction and pulmonary hypertension, along w/left sided pleural effusion. Tricuspid regurgitation is now moderate to severe. CTA shows no evidence of PE Improving w/diuresis, currently at Lasix 60 mg IV BID Weaning down O2 as tolerated Electrolyte replacement as needed. Potassium chloride 20 mg 3 times daily ordered May need thoracentesis for pleural effusion (2) Mitral regurgitation Code(s): I34.0 - Nonrheumatic mitral (valve) insufficiency Status: Acute Plan: Per echo 07.11.18: Normal left ventricular size. Wall thickness is measured at the upper limits of normal. The left ventricular systolic function is normal with an estimated ejection fraction in the range of 55-60%. The left atrial size is mildly dilated. Moderate to severe mitral valve regurgitation. Trace aortic valve regurgitation. There is moderate tricuspid regurgitation. The estimated pulmonary arterial pressure is 70 mmHg. Echo 07.14.18 shows mildly reduced EF of 50% (range), worsening right ventricular systolic function, tricuspid valve regurgitation, and pulmonary HTN (sever at 77 mm hg). Left sided pleural effusion is evident. May predispose patient to atelactasis and likely contributed to pulmonary edema Cardiology following Currently on flecainide and Eliquis Con't to diuresis (3) Colitis Code(s): K52.9 - Noninfective gastroenteritis and colitis, unspecified Status : Acute Plan: Sepsis associated with possible colitis (per CT scan), hypotension resolved, and bradycardia resolved. -Critical care consulted and signed off 07/11 -Blood cultures from 07/08-no growth to date -ID consulted. Patient placed on Flagyl - S/p colonoscopy and egd for evidence of source for colitis. No acute abnormalities found -On Flagyl 500 mg IV every 8 hours (07/09 - present), day #7 Con't flagyl for now per ID recs (4) Electrolyte abnormality Code(s): E87.8 - Other disorders of electrolyte and fluid balance, not elsewhere classified Status: Acute Plan: Monitoring potassium and phosphate, CC assisting to replete as needed (5) Afib Code(s): I48.91 - Unspecified atrial fibrillation Status: Acute Plan: Multiple hospitalizations for paroxysmal, symptomatic afib S/p multiple ablations -Currently holding metoprolol -Continue to monitor on telemetry -Continue to follow cardiology recommendations: -flecainide 100mg BID (6) Anxiety Code(s): F41.9 - Anxiety disorder, unspecified Status: Acute Plan: Patient may be developing delirium. Will follow the plan below to prevent worsening: May resume Xanax 0.25 mg p.o. as needed Add Prozac 10 mg daily for longer-acting anxiety control Add Trazodone 80 mg at night for sleep (7) Hypothyroid Code(s): E03.9 - Hypothyroidism, unspecified Status: Acute Plan: Continue levothyroxine 50 mcg daily (8) Sepsis associated hypotension Code(s): A41.9 - Sepsis, unspecified organism; I95.9 - Hypotension, unspecified Status: Resolved Plan: Resolved <Abid R2Louann N - 07/16/18 11:31> - Assessment and Plan Hospital course: -Status post normal saline bolus 1 L x4 -Stool C. difficile screen negative -Leukocytosis improving; 9.4 on admission and then trended: 24.9, 17.4, 14.7 -Lactic acid trend 1.4 -> 2.3 -> 1.9 -CRP elevated at 2.44 -TSH within normal limits but free T4 elevated at 1.76, free T3 decreased at 0.86 -Thoracic aorta CT: No evidence for aortic aneurysm or dissection, diffuse colonic wall thickening most notably in the transverse colon. Findings are most concerning for colitis, likely infectious or inflammatory in etiology. The mesenteric arteries are patent which makes ischemic etiology unlikely. Moderate severe sigmoid diverticulosis. -Head CT: No acute intracranial abnormality. Atrophy and chronic white matter changes -Abdominal CT without contrast: Unremarkable study without evidence of bowel obstruction or free fluid or free air of any significance. Gallbladder is well distended. Kidneys are functioning. Degenerative arthritis lower lumbar spine. Bibasilar consolidation, likely atelectasis. Sigmoid diverticulosis. Hypotension resolved. - Echo done on 07/11 showed moderate to severe mitral regurgitation and bilateral atelactasis. Patient was encouraged to mobilize with PT and breathing treatments were ordered but spaced out to prevent arrythmias. - 07/13 endoscopy and colonoscopy. No abnormalities on egd, colonsocopy showed large internal hemorrhoids and severe diverticulosis. Colonoscopy recommended in 1 year. After procedure, patient went into acute respiratory failure 2/2 to flash pulmonary edema. Underwent diuresis to improve symptoms and monitored on telemetry. Started on Prozac for better anxiety control and trazodone for insomnia. <Louann Gonzalez - 07/16/18 11:39> Discharge Planning: Pending completion of workup and clearance from cardio <Louann Gonzalez - 07/16/18 11:39> - Attending Attestation Pt. examined independently of resident physician on the morning of 07/16/2018 Pt. case was discussed with resident physician and I have read/agree with the assessment/plan as discussed with me I was involved in all medical decision making for this patient Oliver Wilson MD <Oliver Wilson - 07/17/18 08:55>
[2018-07-16] MEDS: FLUoxetine 10 MG Capsule PO SCH ×2 (17:54→18:36)
[2018-07-16] MEDS: traZODone 50 MG Tablet PO SCH (20:52)
[2018-07-16] MEDS: ALPRAZolam 0.25 MG Tablet PO PRN (23:15)
--- NOTE | 2018-07-17 04:03 | XR ---
EXAM DATE: 07/17/2018 3:57 AM EST AGE/SEX: 83 years / Female INDICATIONS: Hypoxemia. CLINICAL DATA: This is the patient's subsequent encounter. Patient reports that signs and symptoms h ave been present for 1 week and indicates a pain score of 0/10. MEDICAL/SURGICAL HISTORY: Hypertension. A-Fib. Hysterectomy. Ablation. COMPARISON: [facility], CHEST 1V SINGLE AP, 07/14/2018. . FINDINGS: Mild parenchymal opacities of both lungs, mostly perihilar and basilar. Both sides are significantly improved in the interim. Tiny bilateral effusions are present. No pneumothorax. Heart size stable, within normal limits. There is a right internal jugular central venous catheter again seen with tip in the superior vena ca va. CONCLUSION: Substantially decreased pleural effusions and basilar consolidation, now small/mild. Electronically signed by: Lyndon Lee MD Board Certified Radiologist 07/17/2018 4:02 AM EST
[2018-07-17] MEDS: Levothyroxine 50 MCG Tablet PO SCH (06:12)
[2018-07-17 06:25] LABS: Carbon Dioxide 26.3 meq/L (21.0-32.0); Potassium 4.3 meq/L (3.5-5.1)
[2018-07-17] MEDS: Flecainide 100 MG Tablet PO SCH ×2 (08:10→21:38)
[2018-07-17] MEDS: FLUoxetine 10 MG Capsule PO SCH (08:11)
--- NOTE | 2018-07-17 10:55 | P.PNFP ---
Subjective Interval history: Patient seen at bedside this morning. Patient had no acute events overnight. This morning patient continues to feel terrible due to being tired as well as frustration. She appears visibly distraught and reports frustration over continued inpatient stay. She feels as though she is not moving forward nor backward and either wants to get better or go home. Although she is pleased with the care she is received from medical team she is distraught because she feels like she is not getting better. A lengthy discussion was had with the patient about her current setbacks as well as the team understanding her frustrations. We also discussed her role in continuing to improve. Encouraged her to continue her work with physical therapy as well as went over her continued plan. She reported understanding had no further questions. <tSeve Ruiz - 07/17/18 10:54> Results - Labs Result diagrams: 07/16/18 04:01 07/17/18 05:30 <Oliver Wilson - 07/17/18 13:38> Abnormal lab results 07/17/18 07/17/18 Range/Units 05:30 10:22 Sodium 132 L (136-145) meq/L BUN 25 H (7-18) mg/dL Creatinine 1.11 H (0.50-1.00) mg/dL Estimated GFR 47 L (>89) mL/min POC Glucose 173 H (68-110) mg/dl Random Glucose 150 H (74-106) mg/dL Calcium 8.0 L (8.5-10.1) mg/dL [facility] 07/17/18 05:30 Sodium 132 L Potassium 4.3 D Chloride 98 Carbon Dioxide 26.3 BUN 25 H Creatinine 1.11 H Calcium 8.0 L <Oliver Wilson - 07/17/18 13:38> Abnormal lab results 07/17/18 Range/Units 05:30 Sodium 132 L (136-145) meq/L BUN 25 H (7-18) mg/dL Creatinine 1.11 H (0.50-1.00) mg/dL Estimated GFR 47 L (>89) mL/min Random Glucose 150 H (74-106) mg/dL Calcium 8.0 L (8.5-10.1) mg/dL [facility] 07/17/18 05:30 Sodium 132 L Potassium 4.3 D Chloride 98 Carbon Dioxide 26.3 BUN 25 H Creatinine 1.11 H Calcium 8.0 L <Steve Ruiz O - 07/17/18 10:54> - Imaging Impressions Chest X-Ray 07/17/18 04:00 CONCLUSION: Substantially decreased pleural effusions and basilar consolidation, now small/ mild. <KatieOliver - 07/17/18 13:38> Impressions Chest X-Ray 07/17/18 04:00 CONCLUSION: Substantially decreased pleural effusions and basilar consolidation, now small/ mild. <Steve Ruiz - 07/17/18 10:54> Physical Exam Vital signs: Vital Signs 07/16/18 13:42 07/16/18 14:00 07/16/18 14:42 Temperature Pulse Rate 109 H 111 H 107 H Respiratory Rate 30 H 40 H 40 H Blood Pressure 116/58 L 127/61 Pulse Oximetry 96 98 96 07/16/18 15:00 07/16/18 15:45 07/16/18 15:48 Temperature Pulse Rate 109 H 128 H 112 H Respiratory Rate 33 H 102 H 22 Blood Pressure 125/100 H Pulse Oximetry 99 07/16/18 16:00 07/16/18 16:42 07/16/18 17:00 Temperature 98 F Pulse Rate 107 H 90 92 H Respiratory Rate 130 H 104 H 129 H Blood Pressure 115/53 L Pulse Oximetry 100 99 99 07/16/18 17:42 07/16/18 18:00 07/16/18 19:00 Temperature Pulse Rate 91 H 90 104 H Respiratory Rate 108 H 31 H 120 H Blood Pressure 114/58 L Pulse Oximetry 98 99 99 07/16/18 19:42 07/16/18 20:00 07/16/18 20:07 Temperature 98.4 F Pulse Rate 105 H 103 H 124 H Respiratory Rate 133 H 140 H 19 Blood Pressure 120/57 L Pulse Oximetry 99 98 07/16/18 20:09 07/16/18 20:42 07/16/18 21:00 Temperature Pulse Rate 110 H 108 H Respiratory Rate 0 L 22 Blood Pressure 123/58 L Pulse Oximetry 98 98 100 07/16/18 21:42 07/16/18 22:00 07/16/18 22:42 Temperature Pulse Rate 109 H 108 H 111 H Respiratory Rate 24 25 H 21 Blood Pressure 106/55 L 128/60 Pulse Oximetry 98 96 97 07/16/18 23:00 07/16/18 23:20 07/16/18 23:42 Temperature Pulse Rate 109 H 108 H 110 H Respiratory Rate 32 H 19 21 Blood Pressure 115/56 L Pulse Oximetry 96 95 07/17/18 00:00 07/17/18 00:42 07/17/18 01:00 Temperature 99.0 F Pulse Rate 110 H 110 H 109 H Respiratory Rate 21 22 23 Blood Pressure 113/57 L Pulse Oximetry 95 95 98 07/17/18 01:42 07/17/18 02:00 07/17/18 02:42 Temperature Pulse Rate 110 H 110 H 111 H Respiratory Rate 22 25 H 23 Blood Pressure 116/55 L 110/57 L Pulse Oximetry 97 97 97 07/17/18 03:00 07/17/18 03:42 07/17/18 04:00 Temperature 98.9 F Pulse Rate 112 H 113 H Respiratory Rate 23 107 H 147 H Blood Pressure 123/61 Pulse Oximetry 97 96 99 07/17/18 04:42 07/17/18 05:00 07/17/18 06:00 Temperature Pulse Rate 91 H 103 H 79 Respiratory Rate 80 H 97 H 27 H Blood Pressure 116/58 L Pulse Oximetry 98 98 07/17/18 06:42 07/17/18 07:00 07/17/18 07:42 Temperature Pulse Rate 78 79 77 Respiratory Rate 21 19 17 Blood Pressure 121/57 L 121/57 L 112/54 L Pulse Oximetry 98 99 99 07/17/18 07:46 07/17/18 08:00 07/17/18 08:42 Temperature 98.1 F Pulse Rate 77 79 80 Respiratory Rate 17 29 H 25 H Blood Pressure 124/58 L Pulse Oximetry 99 100 97 07/17/18 09:00 07/17/18 09:42 07/17/18 10:00 Temperature Pulse Rate 79 86 89 Respiratory Rate 20 28 H 28 H Blood Pressure 124/58 L 123/68 Pulse Oximetry 97 97 94 L 07/17/18 11:00 07/17/18 11:01 07/17/18 11:08 Temperature Pulse Rate 81 80 80 Respiratory Rate 24 23 24 Blood Pressure 119/58 L Pulse Oximetry 88 L 99 07/17/18 11:42 07/17/18 12:00 07/17/18 12:42 Temperature 97.9 F Pulse Rate 81 79 78 Respiratory Rate 30 H 18 20 Blood Pressure 117/59 L 114/56 L Pulse Oximetry 97 97 95 07/17/18 13:00 Temperature Pulse Rate 77 Respiratory Rate 20 Blood Pressure Pulse Oximetry 95 Intake & Output 07/16/18 07/17/18 07/17/18 18:59 06:59 18:59 Intake Total 1280 / 1280 860 / 860 100 / 100 Output Total 900 / 900 1250 / 1250 Balance 380 / 380 -390 / -390 100 / 100 Weight 67.8 kg Intake: IV 400 / 400 400 / 400 100 / 100 Maxipime Inj 2,000 MG In NS Inj 100 / 100 100 ML @ 200 mls/hr IV.SIG Q12H ERIK Rx#:[id number] KCl 20 mEq Premix Inj 20 meq In 300 / 300 100 ml @ 50 mls/hr IV.SIG Q2H ERIK Rx#:[id number] Flagyl 500 MG Inj 100 ML @ 100 100 / 100 200 / 200 100 / 100 mls/hr IV.SIG Q8H ERIK Rx#: [id number] Oral 880 / 880 460 / 460 Output: Urine Amount (Catheter) 900 / 900 1250 / 1250 Indwelling Urethral Catheter 900 / 900 1250 / 1250 Other: Date of Last Bowel Movement 07/16/18 07/17/18 07/17/18 # Bowel Movements 1 <Oliver Wilson - 07/17/18 13:38> Vital Signs 07/16/18 11:00 07/16/18 11:42 07/16/18 11:46 Temperature Pulse Rate 108 H 111 H 114 H Respiratory Rate 21 32 H 20 Blood Pressure 119/66 Pulse Oximetry 99 98 07/16/18 12:00 07/16/18 12:42 07/16/18 13:00 Temperature 98.6 F Pulse Rate 110 H 113 H 112 H Respiratory Rate 23 38 H 58 H Blood Pressure 123/55 L Pulse Oximetry 100 98 97 07/16/18 13:42 07/16/18 14:00 07/16/18 14:42 Temperature Pulse Rate 109 H 111 H 107 H Respiratory Rate 30 H 40 H 40 H Blood Pressure 116/58 L 127/61 Pulse Oximetry 96 98 96 07/16/18 15:00 07/16/18 15:45 07/16/18 15:48 Temperature Pulse Rate 109 H 128 H 112 H Respiratory Rate 33 H 102 H 22 Blood Pressure 125/100 H Pulse Oximetry 99 07/16/18 16:00 07/16/18 16:42 07/16/18 17:00 Temperature 98 F Pulse Rate 107 H 90 92 H Respiratory Rate 130 H 104 H 129 H Blood Pressure 115/53 L Pulse Oximetry 100 99 99 07/16/18 17:42 07/16/18 18:00 07/16/18 19:00 Temperature Pulse Rate 91 H 90 104 H Respiratory Rate 108 H 31 H 120 H Blood Pressure 114/58 L Pulse Oximetry 98 99 99 07/16/18 19:42 07/16/18 20:00 07/16/18 20:07 Temperature 98.4 F Pulse Rate 105 H 103 H 124 H Respiratory Rate 133 H 140 H 19 Blood Pressure 120/57 L Pulse Oximetry 99 98 07/16/18 20:09 07/16/18 20:42 07/16/18 21:00 Temperature Pulse Rate 110 H 108 H Respiratory Rate 0 L 22 Blood Pressure 123/58 L Pulse Oximetry 98 98 100 07/16/18 21:42 07/16/18 22:00 07/16/18 22:42 Temperature Pulse Rate 109 H 108 H 111 H Respiratory Rate 24 25 H 21 Blood Pressure 106/55 L 128/60 Pulse Oximetry 98 96 97 07/16/18 23:00 07/16/18 23:20 07/16/18 23:42 Temperature Pulse Rate 109 H 108 H 110 H Respiratory Rate 32 H 19 21 Blood Pressure 115/56 L Pulse Oximetry 96 95 07/17/18 00:00 07/17/18 00:42 07/17/18 01:00 Temperature 99.0 F Pulse Rate 110 H 110 H 109 H Respiratory Rate 21 22 23 Blood Pressure 113/57 L Pulse Oximetry 95 95 98 07/17/18 01:42 07/17/18 02:00 07/17/18 02:42 Temperature Pulse Rate 110 H 110 H 111 H Respiratory Rate 22 25 H 23 Blood Pressure 116/55 L 110/57 L Pulse Oximetry 97 97 97 07/17/18 03:00 07/17/18 03:42 07/17/18 04:00 Temperature 98.9 F Pulse Rate 112 H 113 H Respiratory Rate 23 107 H 147 H Blood Pressure 123/61 Pulse Oximetry 97 96 99 07/17/18 04:42 07/17/18 05:00 07/17/18 06:00 Temperature Pulse Rate 91 H 103 H 79 Respiratory Rate 80 H 97 H 27 H Blood Pressure 116/58 L Pulse Oximetry 98 98 07/17/18 06:42 07/17/18 07:00 07/17/18 07:42 Temperature Pulse Rate 78 79 77 Respiratory Rate 21 19 17 Blood Pressure 121/57 L 121/57 L 112/54 L Pulse Oximetry 98 99 99 07/17/18 07:46 07/17/18 08:00 07/17/18 08:42 Temperature 98.1 F Pulse Rate 77 79 80 Respiratory Rate 17 29 H 25 H Blood Pressure 124/58 L Pulse Oximetry 99 100 97 07/17/18 09:00 07/17/18 09:42 07/17/18 10:00 Temperature Pulse Rate 79 86 89 Respiratory Rate 20 28 H 28 H Blood Pressure 124/58 L 123/68 Pulse Oximetry 97 97 94 L Intake & Output 07/16/18 07/17/18 07/17/18 18:59 06:59 18:59 Intake Total 1280 / 1280 860 / 860 100 / 100 Output Total 900 / 900 1250 / 1250 Balance 380 / 380 -390 / -390 100 / 100 Weight 67.8 kg Intake: IV 400 / 400 400 / 400 100 / 100 Maxipime Inj 2,000 MG In NS Inj 100 / 100 100 ML @ 200 mls/hr IV.SIG Q12H ERIK Rx#:[id number] KCl 20 mEq Premix Inj 20 meq In 300 / 300 100 ml @ 50 mls/hr IV.SIG Q2H ERIK Rx#:[id number] Flagyl 500 MG Inj 100 ML @ 100 100 / 100 200 / 200 100 / 100 mls/hr IV.SIG Q8H ERIK Rx#: [id number] Oral 880 / 880 460 / 460 Output: Urine Amount (Catheter) 900 / 900 1250 / 1250 Indwelling Urethral Catheter 900 / 900 1250 / 1250 Other: Date of Last Bowel Movement 07/16/18 07/17/18 07/17/18 # Bowel Movements 1 <Steve Ruiz O - 07/17/18 10:54> Narrative: GENERAL: Elderly appearing female, lying in bed on 2 L nasal cannula oxygen SKIN: Warm and dry. Multiple ecchymoses over bilateral shins and arms. HEAD: Normocephalic. CARDIOVASCULAR: regular rhythm and rate. 3/6 holosystolic murmur at the apex RESPIRATORY: No bilateral crackles or rhonchi heard. Inspiratory airflow improved from yesterday. GASTROINTESTINAL: Abdomen soft and nontender in any quadrant. Normal bowel sounds appreciated. Nondistended. MUSCULOSKELETAL: No cyanosis. Minimal edema noted over dorsum of feet bilaterally. Moves all extremities spontaneously. <Morales AlmaSteve Feliciano 07/17/18 10:54> - Urinary Catheter Management Indwelling Urethral Catheter Cath placed during this visit: no <Oliver Wilson 07/17/18 13:38> yes <Morales AlmaSteve Feliciano 07/17/18 10:54> Reason for continuing: Hourly intake/output <Carmen MarquezSteve Wiggins 07/17/18 10:54 > Insertion date: 07/13/18 <Carmen MarquezSteve Wiggins 07/17/18 10:54> Insertion time: 14:30 <Steve Ruiz 07/17/18 10:54> Assessment and Plan - Assessment (1) Acute hypoxemic respiratory failure Code(s): J96.01 - Acute respiratory failure with hypoxia Status: Acute (2) Mitral regurgitation Code(s): I34.0 - Nonrheumatic mitral (valve) insufficiency Status: Acute (3) Colitis Code(s): K52.9 - Noninfective gastroenteritis and colitis, unspecified Status : Acute (4) Electrolyte abnormality Code(s): E87.8 - Other disorders of electrolyte and fluid balance, not elsewhere classified Status: Acute (5) Afib Code(s): I48.91 - Unspecified atrial fibrillation Status: Acute (6) Hyponatremia Code(s): E87.1 - Hypo-osmolality and hyponatremia Status: Acute (7) Anxiety Code(s): F41.9 - Anxiety disorder, unspecified Status: Acute (8) Hypothyroid Code(s): E03.9 - Hypothyroidism, unspecified Status: Acute (9) Sepsis associated hypotension Code(s): A41.9 - Sepsis, unspecified organism; I95.9 - Hypotension, unspecified Status: Resolved <Oliver Wilson 07/17/18 13:38> (1) Acute hypoxemic respiratory failure Code(s): J96.01 - Acute respiratory failure with hypoxia Status: Acute Plan: Flash pulmonary edema after EGD and colonoscopy 07/13 CC consulted to assist in management and monitor, based on complexity of patient 's risk factors and comorbidities IV cefepime (day #4) to cover for possible HCAP Repeat echo 07/14 showed worsening of ejection fraction and pulmonary hypertension, along w/left sided pleural effusion. Tricuspid regurgitation is now moderate to severe. CTA shows no evidence of PE Improving w/diuresis, currently at Lasix 60 mg IV BID Weaning down O2 as tolerated Electrolyte replacement as needed. Potassium chloride 20 mg 3 times daily ordered May need thoracentesis for pleural effusion (2) Mitral regurgitation Code(s): I34.0 - Nonrheumatic mitral (valve) insufficiency Status: Acute Plan: Per echo 07.11.18: Normal left ventricular size. Wall thickness is measured at the upper limits of normal. The left ventricular systolic function is normal with an estimated ejection fraction in the range of 55-60%. The left atrial size is mildly dilated. Moderate to severe mitral valve regurgitation. Trace aortic valve regurgitation. There is moderate tricuspid regurgitation. The estimated pulmonary arterial pressure is 70 mmHg. Echo 07.14.18 shows mildly reduced EF of 50% (range), worsening right ventricular systolic function, tricuspid valve regurgitation, and pulmonary HTN (sever at 77 mm hg). Left sided pleural effusion is evident. May predispose patient to atelectasis and likely contributed to pulmonary edema Cardiology following Currently on flecainide and Eliquis Con't to diuresis (3) Colitis Code(s): K52.9 - Noninfective gastroenteritis and colitis, unspecified Status : Acute Plan: Sepsis associated with possible colitis (per CT scan), hypotension resolved, and bradycardia resolved. -Critical care consulted and signed off 07/11 -Blood cultures from 07/08-no growth to date -ID consulted. Patient placed on Flagyl - S/p colonoscopy and egd for evidence of source for colitis. No acute abnormalities found -On Flagyl 500 mg IV every 8 hours (07/09 - present), day #8 Con't flagyl for now per ID recs (4) Electrolyte abnormality Code(s): E87.8 - Other disorders of electrolyte and fluid balance, not elsewhere classified Status: Acute Plan: Monitoring potassium and phosphate, CC assisting to replete as needed (5) Afib Code(s): I48.91 - Unspecified atrial fibrillation Status: Acute Plan: Multiple hospitalizations for paroxysmal, symptomatic afib S/p multiple ablations -Currently holding metoprolol -Continue to monitor on telemetry -Continue to follow cardiology recommendations: -flecainide 100mg BID (6) Hyponatremia Code(s): E87.1 - Hypo-osmolality and hyponatremia Status: Acute Plan: Mild hyponatremia with a sodium of 132 -Restrict fluid to 1.5 L daily (7) Anxiety Code(s): F41.9 - Anxiety disorder, unspecified Status: Acute Plan: Patient exhibited signs of delirium. Continue: Xanax 0.25 mg p.o. as needed Prozac 10 mg daily for longer-acting anxiety control Trazodone 80 mg at night for sleep (8) Hypothyroid Code(s): E03.9 - Hypothyroidism, unspecified Status: Acute Plan: Continue levothyroxine 50 mcg daily (9) Sepsis associated hypotension Code(s): A41.9 - Sepsis, unspecified organism; I95.9 - Hypotension, unspecified Status: Resolved Plan: Resolved <Carmen MarquezSteve O - 07/17/18 10:46> - Assessment and Plan Hospital course: -Status post normal saline bolus 1 L x4 -Stool C. difficile screen negative -Leukocytosis improving; 9.4 on admission and then trended: 24.9, 17.4, 14.7 -Lactic acid trend 1.4 -> 2.3 -> 1.9 -CRP elevated at 2.44 -TSH within normal limits but free T4 elevated at 1.76, free T3 decreased at 0.86 -Thoracic aorta CT: No evidence for aortic aneurysm or dissection, diffuse colonic wall thickening most notably in the transverse colon. Findings are most concerning for colitis, likely infectious or inflammatory in etiology. The mesenteric arteries are patent which makes ischemic etiology unlikely. Moderate severe sigmoid diverticulosis. -Head CT: No acute intracranial abnormality. Atrophy and chronic white matter changes -Abdominal CT without contrast: Unremarkable study without evidence of bowel obstruction or free fluid or free air of any significance. Gallbladder is well distended. Kidneys are functioning. Degenerative arthritis lower lumbar spine. Bibasilar consolidation, likely atelectasis. Sigmoid diverticulosis. Hypotension resolved. - Echo done on 07/11 showed moderate to severe mitral regurgitation and bilateral atelactasis. Patient was encouraged to mobilize with PT and breathing treatments were ordered but spaced out to prevent arrythmias. - 07/13 endoscopy and colonoscopy. No abnormalities on egd, colonsocopy showed large internal hemorrhoids and severe diverticulosis. Colonoscopy recommended in 1 year. After procedure, patient went into acute respiratory failure 2/2 to flash pulmonary edema. Underwent diuresis to improve symptoms and monitored on telemetry. Started on Prozac for better anxiety control and trazodone for insomnia. <Steve Ruiz - 07/17/18 10:54> - Attending Attestation Pt. examined with resident physician during morning medical rounds I have discussed the patient case with resident physician I have read the above resident note and agree with the assessment/plan as discussed with me Oliver Wilson MD <Oliver Wilson - 07/17/18 13:38>
--- NOTE | 2018-07-17 12:36 | P.PNCA ---
Subjective Interval history: Denies CP, dyspnea, dizziness, palpitations, nausea. Slept fairly well. Medications and Allergies Active Medications: Active Medications Acetaminophen (Tylenol) 650 mg PO Q4H PRN PRN Reason: Temp > 100.4 Albuterol (Albuterol Neb (Prn)) 2.5 mg NEB ONCE PRN PRN Reason: SHORTNESS OF BREATH Last Admin: 07/12/18 16:10 Dose: 2.5 mg Albuterol (Duoneb Neb (Keith)) 1 ampul NEB Q4HR NEB KEITH Last Admin: 07/17/18 11:07 Dose: 1 ampul Alprazolam (Xanax) 0.25 mg PO Q12H PRN PRN Reason: ANXIETY Last Admin: 07/16/18 23:15 Dose: 0.25 mg Apixaban (Eliquis) 5 mg PO BID KEITH Last Admin: 07/17/18 08:10 Dose: 5 mg Flecainide Acetate (Tambocor) 100 mg PO BID COUNT INCLUDES THE [facility] Last Admin: 07/17/18 08:10 Dose: 100 mg Fluoxetine HCl (Prozac) 10 mg PO DAILY COUNT INCLUDES THE [facility] Last Admin: 07/17/18 08:11 Dose: Not Given Furosemide (Lasix Inj) 60 mg IV.PUSH Q12H COUNT INCLUDES THE [facility] Last Admin: 07/17/18 12:20 Dose: 60 mg Hydromorphone HCl (Dilaudid Pf Inj) 0.5 mg IV.PUSH ONCE PRN PRN Reason: ABDOMINAL PAIN Last Admin: 07/09/18 00:54 Dose: 0.5 mg Metronidazole/Sodium Chloride (Flagyl 500 Mg Inj) 100 mls @ 100 mls/hr IV.SIG Q8H COUNT INCLUDES THE [facility] Last Infusion: 07/17/18 09:11 Dose: Infused Lactated Ringer's (Lr 1000 Ml Inj) 1,000 mls @ 30 mls/hr IV.SIG .Q24H KEITH Last Admin: 07/15/18 07:27 Dose: Not Given Sodium Chloride (Ns Inj) 500 mls @ 30 mls/hr IV.SIG .Q10H COUNT INCLUDES THE [facility] Last Admin: 07/15/18 07:28 Dose: Not Given Cefepime HCl 2,000 mg/ Sodium (Chloride) 100 mls @ 200 mls/hr IV.SIG Q12H COUNT INCLUDES THE [facility] Last Infusion: 07/17/18 03:00 Dose: Infused Levothyroxine Sodium (Synthroid) 50 mcg PO DAILY@0600 COUNT INCLUDES THE [facility] Last Admin: 07/17/18 06:12 Dose: 50 mcg Ondansetron HCl (Zofran Inj) 4 mg IV.PUSH Q6H PRN PRN Reason: NAUSEA OR VOMITING Last Admin: 07/12/18 21:03 Dose: 4 mg Patch Removal (Remove Old Patch) 1 each T-DERMAL Q7D COUNT INCLUDES THE [facility] Last Admin: 07/12/18 17:38 Dose: 1 each Potassium Chloride (K-Dur) 20 meq PO TID COUNT INCLUDES THE [facility] Last Admin: 07/17/18 12:20 Dose: 20 meq Sodium Chloride (Ns Flush) 2 ml IV.FLUSH BID COUNT INCLUDES THE [facility] Last Admin: 07/17/18 08:11 Dose: 2 ml Sodium Chloride (Ns Flush) 2 ml IV.FLUSH PRN PRN PRN Reason: FLUSH AFTER USING IV ACCESS Trazodone HCl (Desyrel) 50 mg PO HS COUNT INCLUDES THE [facility] Last Admin: 07/16/18 20:52 Dose: 50 mg Allergies Allergy/AdvReac Type Severity Reaction Status Date / Time cefaclor Allergy Severe RASH Verified 07/04/18 09:33 paroxetine Allergy Severe Rash Verified 07/04/18 09:33 Sulfa (Sulfonamide Allergy Severe RASH Verified 07/04/18 09:33 Antibiotics) ciprofloxacin Allergy Unknown GI UPSET Verified 07/04/18 09:33 clonidine Allergy Unknown SKIN Verified 07/04/18 09:33 IRRITATION latex bandages AdvReac Mild SKIN Uncoded 07/02/18 10:47 REDNESS, RASH Home Medications Medication Instructions Recorded Confirmed Type alprazolam 0.25 mg PO BID PRN 05/18/18 07/08/18 History amiodarone 200 mg PO DAILY 05/18/18 07/08/18 History apixaban [Eliquis] 5 mg PO BID 05/18/18 07/08/18 History estradiol 0.5 mg PO WEEKLY 05/18/18 07/08/18 History levothyroxine 50 mcg PO DAILY 05/18/18 07/08/18 History potassium chloride 20 meq PO DAILY 05/18/18 07/08/18 History Physical Exam Vital signs: Vital Signs 07/16/18 12:42 07/16/18 13:00 07/16/18 13:42 Temperature Pulse Rate 113 H 112 H 109 H Respiratory Rate 38 H 58 H 30 H Blood Pressure 123/55 L 116/58 L Pulse Oximetry 98 97 96 07/16/18 14:00 07/16/18 14:42 07/16/18 15:00 Temperature Pulse Rate 111 H 107 H 109 H Respiratory Rate 40 H 40 H 33 H Blood Pressure 127/61 Pulse Oximetry 98 96 99 07/16/18 15:45 07/16/18 15:48 07/16/18 16:00 Temperature 98 F Pulse Rate 128 H 112 H 107 H Respiratory Rate 102 H 22 130 H Blood Pressure 125/100 H Pulse Oximetry 100 07/16/18 16:42 07/16/18 17:00 07/16/18 17:42 Temperature Pulse Rate 90 92 H 91 H Respiratory Rate 104 H 129 H 108 H Blood Pressure 115/53 L 114/58 L Pulse Oximetry 99 99 98 07/16/18 18:00 07/16/18 19:00 07/16/18 19:42 Temperature Pulse Rate 90 104 H 105 H Respiratory Rate 31 H 120 H 133 H Blood Pressure 120/57 L Pulse Oximetry 99 99 99 07/16/18 20:00 07/16/18 20:07 07/16/18 20:09 Temperature 98.4 F Pulse Rate 103 H 124 H Respiratory Rate 140 H 19 Blood Pressure Pulse Oximetry 98 98 07/16/18 20:42 07/16/18 21:00 07/16/18 21:42 Temperature Pulse Rate 110 H 108 H 109 H Respiratory Rate 0 L 22 24 Blood Pressure 123/58 L 106/55 L Pulse Oximetry 98 100 98 07/16/18 22:00 07/16/18 22:42 07/16/18 23:00 Temperature Pulse Rate 108 H 111 H 109 H Respiratory Rate 25 H 21 32 H Blood Pressure 128/60 Pulse Oximetry 96 97 96 07/16/18 23:20 07/16/18 23:42 07/17/18 00:00 Temperature 99.0 F Pulse Rate 108 H 110 H 110 H Respiratory Rate 19 21 21 Blood Pressure 115/56 L Pulse Oximetry 95 95 07/17/18 00:42 07/17/18 01:00 07/17/18 01:42 Temperature Pulse Rate 110 H 109 H 110 H Respiratory Rate 22 23 22 Blood Pressure 113/57 L 116/55 L Pulse Oximetry 95 98 97 07/17/18 02:00 07/17/18 02:42 07/17/18 03:00 Temperature Pulse Rate 110 H 111 H 112 H Respiratory Rate 25 H 23 23 Blood Pressure 110/57 L Pulse Oximetry 97 97 97 07/17/18 03:42 07/17/18 04:00 07/17/18 04:42 Temperature 98.9 F Pulse Rate 113 H 91 H Respiratory Rate 107 H 147 H 80 H Blood Pressure 123/61 116/58 L Pulse Oximetry 96 99 98 07/17/18 05:00 07/17/18 06:00 07/17/18 06:42 Temperature Pulse Rate 103 H 79 78 Respiratory Rate 97 H 27 H 21 Blood Pressure 121/57 L Pulse Oximetry 98 98 07/17/18 07:00 07/17/18 07:42 07/17/18 07:46 Temperature Pulse Rate 79 77 77 Respiratory Rate 19 17 17 Blood Pressure 121/57 L 112/54 L Pulse Oximetry 99 99 99 07/17/18 08:00 07/17/18 08:42 07/17/18 09:00 Temperature 98.1 F Pulse Rate 79 80 79 Respiratory Rate 29 H 25 H 20 Blood Pressure 124/58 L 124/58 L Pulse Oximetry 100 97 97 07/17/18 09:42 07/17/18 10:00 07/17/18 11:00 Temperature Pulse Rate 86 89 81 Respiratory Rate 28 H 28 H 24 Blood Pressure 123/68 Pulse Oximetry 97 94 L 88 L 07/17/18 11:01 07/17/18 11:08 07/17/18 11:42 Temperature Pulse Rate 80 80 81 Respiratory Rate 23 24 30 H Blood Pressure 119/58 L 117/59 L Pulse Oximetry 99 97 07/17/18 12:00 Temperature 97.9 F Pulse Rate 79 Respiratory Rate 18 Blood Pressure Pulse Oximetry 97 Intake & Output 07/16/18 07/17/18 07/17/18 18:59 06:59 18:59 Intake Total 1280 / 1280 860 / 860 100 / 100 Output Total 900 / 900 1250 / 1250 Balance 380 / 380 -390 / -390 100 / 100 Weight 67.8 kg Intake: IV 400 / 400 400 / 400 100 / 100 Maxipime Inj 2,000 MG In NS Inj 100 / 100 100 ML @ 200 mls/hr IV.SIG Q12H COUNT INCLUDES THE [facility] Rx#:[id number] KCl 20 mEq Premix Inj 20 meq In 300 / 300 100 ml @ 50 mls/hr IV.SIG Q2H [facility] Rx#:[id number] Flagyl 500 MG Inj 100 ML @ 100 100 / 100 200 / 200 100 / 100 mls/hr IV.SIG Q8H KE[facility] Rx#: [id number] Oral 880 / 880 460 / 460 Output: Urine Amount (Catheter) 900 / 900 1250 / 1250 Indwelling Urethral Catheter 900 / 900 1250 / 1250 Other: Date of Last Bowel Movement 07/16/18 07/17/18 07/17/18 # Bowel Movements 1 - Constitutional no acute distress - Routine Neck Exam Absent: JVD - Routine Respiratory Exam Present: CTA bilaterally - Routine Cardiovascular Exam Present: RRR, S1, S2, murmur. Absent: gallop Comments: I/ systolic murmur lower left sternal border. - Routine Abdominal Exam Present: soft, normoactive bowel sounds. Absent: tenderness, organomegaly - Routine Extremities Exam Absent: cyanosis, clubbing, edema - Urinary Catheter Management Indwelling Urethral Catheter Cath placed during this visit: yes Reason for continuing: Hourly intake/output Insertion date: 07/13/18 Insertion time: 14:30 Results 07/16/18 04:01 07/17/18 05:30 CBC 07/16/18 Range/Units 04:01 WBC 15.6 H (4.0-11.0) th/mm3 RBC 3.51 L (4.00-5.30) mil/mm3 Hgb 11.1 L (11.6-15.3) gm/dL Hct 33.2 L (35.0-46.0) % Plt Count 241 (150-450) th/mm3 Neut # (Auto) 13.1 H (1.8-7.7) th/mm3 Lymph # (Auto) 1.3 (1.0-4.8) th/mm3 [place] # (Auto) 1.1 H (0.0-0.9) th/mm3 Eos # (Auto) 0.2 (0.0-0.4) th/mm3 Baso # (Auto) 0.1 (0.0-0.2) th/mm3 Comprehensive Metabolic Panel 07/15/18 07/16/18 07/17/18 Range/Units 21:51 04:01 05:30 Sodium 137 134 L 132 L (136-145) meq/L Potassium 3.8 2.9 L* D 4.3 D (3.5-5.1) meq/L Chloride 99 97 L 98 (98-107) meq/L Carbon Dioxide 28.3 26.6 26.3 (21.0-32.0) meq/L BUN 18 21 H 25 H (7-18) mg/dL Creatinine 1.00 1.19 H 1.11 H (0.50-1.00) mg/dL Calcium 7.6 L 7.9 L 8.0 L (8.5-10.1) mg/dL Intake and Output 07/16/18 07/17/18 07/17/18 22:59 06:59 14:59 Intake Total 1080 / 1080 760 / 760 100 / 100 Output Total 900 / 900 1250 / 1250 Balance 180 / 180 -490 / -490 100 / 100 Intake: IV 200 / 200 300 / 300 100 / 100 Maxipime Inj 2,000 MG In NS Inj 100 / 100 100 ML @ 200 mls/hr IV.SIG Q12H [facility] Rx#:[id number] KCl 20 mEq Premix Inj 20 meq In 100 / 100 100 ml @ 50 mls/hr IV.SIG Q2H [facility] Rx#:[id number] Flagyl 500 MG Inj 100 ML @ 100 200 / 200 100 / 100 mls/hr IV.SIG Q8H KE[facility] Rx#: [id number] Oral 880 / 880 460 / 460 Output: Urine Amount (Catheter) 900 / 900 1250 / 1250 Indwelling Urethral Catheter 900 / 900 1250 / 1250 Other: Date of Last Bowel Movement 07/16/18 07/17/18 07/17/18 # Bowel Movements 1 Weight 67.8 kg - Imaging and Cardiology Imaging: Impressions Chest CTA 07/15/18 00:00 CONCLUSION: 1. This study is negative for pulmonary embolism. 2. Moderately-sized bilateral pleural effusions. 3. Ground-glass infiltrates are noted bilaterally consistent with mild pulmonary vascular congestion or possible pneumonia. Clinical correlation is recommended. 4. Bibasilar compressive atelectasis. 5. Minimally prominent pretracheal, subcarinal and AP window mediastinal as well as right hilar lymph nodes which are nonspecific. 6. Cardiomegaly and coronary artery calcifications. 7. Small hiatal hernia. Chest X-Ray 07/17/18 04:00 CONCLUSION: Substantially decreased pleural effusions and basilar consolidation, now small/ mild. Assessment and Plan - Assessment (1) Bradycardia Code(s): R00.1 - Bradycardia, unspecified Status: Acute (2) Colitis Code(s): K52.9 - Noninfective gastroenteritis and colitis, unspecified Status : Acute (3) Afib Code(s): I48.91 - Unspecified atrial fibrillation Status: Acute (4) Hypertension Code(s): I10 - Essential (primary) hypertension Status: Acute (5) Hypothyroid Code(s): E03.9 - Hypothyroidism, unspecified Status: Acute (6) Anxiety Code(s): F41.9 - Anxiety disorder, unspecified Status: Acute (7) SKY (acute kidney injury) Code(s): N17.9 - Acute kidney failure, unspecified Status: Acute (8) Sepsis associated hypotension Code(s): A41.9 - Sepsis, unspecified organism; I95.9 - Hypotension, unspecified Status: Resolved - Plan 1. Abdominal pain, which appears to be due to colitis. Clinically better 2. Sepsis. Resolved, most likely secondary to colitis 3. Hypotension responsive to IV fluids. Resolved 4. Acute bradycardia secondary to medications. Amiodarone stopped Metoprolol held HR's normal and patient back in NSR at the present time. 5. Difficult to control atrial fibrillation with history of atrial fibrillation ablation x 2 and atrial flutter ablation x 1. Appears to be back in NSR today. Continue apixaban, flecainide. 6. Previous hypothermia. 7. Acute kidney injury. 8. Flash pulmonary edema EKG with minimal changes, similar to previous Most likely due to known moderate to severe MR Troponin levels minimally elevated, most likely type 2 Repeat echo with no significant change Overall feel this is not due to coronary artery disease, but most likely her mitral regurgitation Bilateral pleural effusion much improved on today's CXR Will need work up for mitral valve regurgitation She would prefer to get better and do electively, will have to see how hospital course progresses If not better, may need to consider Mitral Clip Code Status: full Discussed Condition With: patient
--- NOTE | 2018-07-17 12:43 | P.PNCC ---
Subjective Subjective Remarks/Hospital Course: 07/10: Afebrile. Patient awake and alert. Overnight heart rate range 48-60's. Flecainide dose was held last p.m. and review of the MAR. Today the patient was noted to be sustaining a MAP 60-61, patient received 250 cc 5% albumin and remained normotensive. Patient tolerating clear liquid diet. 07/11: Patient hemodynamically stable heart rate 50s-70s. Patient continues on flecainide. She was noted to have a positive stool for occult blood yesterday afternoon GI was consulted per plans for panendoscopy in the near future peer Eliquis was placed on hold. The patient was noted to have a low potassium level this a.m. 20 mEq IV was provided along with additional scheduled dosing of p.o. potassium. 07/13: The patient developed hypoxemic respiratory failure today and is being transferred to the intensive care unit for a higher level of care. Results of the endoscopies presently not available, but will review. Chest x-ray looks like pulmonary edema with bilateral hilar congestion and prominent pulmonary veins. 07/14: Persistent hypoxemia today with labored breathing. Diuresis over 2 L yesterday however respiratory status remains compromised. Multiple electrolyte abnormalities, now being replaced. She has remained in sinus rhythm. 07/15: Requiring less concentrated oxygen this morning. Negative fluid balance for 2 days now without worsening renal function. Persistent leukocytosis concerning but she remains afebrile. Back in atrial fibrillation, rate controlled we will continue to treat this is simple fluid overload but I think it is worth continuing to cover her for bacterial pneumonia. 07/16: Continues to require decreasing amounts of inspired oxygen. Requires very aggressive diuretic therapy to stay out of pulmonary edema. Hopefully we can keep her out of pulmonary edema with a diuretic dose that will not impair renal function. Continue to aggressively replace potassium as expected. 07/17: Breathing much more comfortably today following aggressive diuresis yesterday. Chest x-ray is clearing nicely. Antibiotic regimen requires a lot of fluid and we could probably stop at any time. This cleared too fast to be a pneumonia so I suspect this was all water. Transfer to floor fine with me. Objective Vital Signs / I&O: Vital Signs 07/16/18 12:42 07/16/18 13:00 07/16/18 13:42 Temperature Pulse Rate 113 H 112 H 109 H Respiratory Rate 38 H 58 H 30 H Blood Pressure 123/55 L 116/58 L Pulse Oximetry 98 97 96 07/16/18 14:00 07/16/18 14:42 07/16/18 15:00 Temperature Pulse Rate 111 H 107 H 109 H Respiratory Rate 40 H 40 H 33 H Blood Pressure 127/61 Pulse Oximetry 98 96 99 07/16/18 15:45 07/16/18 15:48 07/16/18 16:00 Temperature 98 F Pulse Rate 128 H 112 H 107 H Respiratory Rate 102 H 22 130 H Blood Pressure 125/100 H Pulse Oximetry 100 07/16/18 16:42 07/16/18 17:00 07/16/18 17:42 Temperature Pulse Rate 90 92 H 91 H Respiratory Rate 104 H 129 H 108 H Blood Pressure 115/53 L 114/58 L Pulse Oximetry 99 99 98 07/16/18 18:00 07/16/18 19:00 07/16/18 19:42 Temperature Pulse Rate 90 104 H 105 H Respiratory Rate 31 H 120 H 133 H Blood Pressure 120/57 L Pulse Oximetry 99 99 99 07/16/18 20:00 07/16/18 20:07 07/16/18 20:09 Temperature 98.4 F Pulse Rate 103 H 124 H Respiratory Rate 140 H 19 Blood Pressure Pulse Oximetry 98 98 07/16/18 20:42 07/16/18 21:00 07/16/18 21:42 Temperature Pulse Rate 110 H 108 H 109 H Respiratory Rate 0 L 22 24 Blood Pressure 123/58 L 106/55 L Pulse Oximetry 98 100 98 07/16/18 22:00 07/16/18 22:42 07/16/18 23:00 Temperature Pulse Rate 108 H 111 H 109 H Respiratory Rate 25 H 21 32 H Blood Pressure 128/60 Pulse Oximetry 96 97 96 07/16/18 23:20 07/16/18 23:42 07/17/18 00:00 Temperature 99.0 F Pulse Rate 108 H 110 H 110 H Respiratory Rate 19 21 21 Blood Pressure 115/56 L Pulse Oximetry 95 95 07/17/18 00:42 07/17/18 01:00 07/17/18 01:42 Temperature Pulse Rate 110 H 109 H 110 H Respiratory Rate 22 23 22 Blood Pressure 113/57 L 116/55 L Pulse Oximetry 95 98 97 07/17/18 02:00 07/17/18 02:42 07/17/18 03:00 Temperature Pulse Rate 110 H 111 H 112 H Respiratory Rate 25 H 23 23 Blood Pressure 110/57 L Pulse Oximetry 97 97 97 07/17/18 03:42 07/17/18 04:00 07/17/18 04:42 Temperature 98.9 F Pulse Rate 113 H 91 H Respiratory Rate 107 H 147 H 80 H Blood Pressure 123/61 116/58 L Pulse Oximetry 96 99 98 07/17/18 05:00 07/17/18 06:00 07/17/18 06:42 Temperature Pulse Rate 103 H 79 78 Respiratory Rate 97 H 27 H 21 Blood Pressure 121/57 L Pulse Oximetry 98 98 07/17/18 07:00 07/17/18 07:42 07/17/18 07:46 Temperature Pulse Rate 79 77 77 Respiratory Rate 19 17 17 Blood Pressure 121/57 L 112/54 L Pulse Oximetry 99 99 99 07/17/18 08:00 07/17/18 08:42 07/17/18 09:00 Temperature 98.1 F Pulse Rate 79 80 79 Respiratory Rate 29 H 25 H 20 Blood Pressure 124/58 L 124/58 L Pulse Oximetry 100 97 97 07/17/18 09:42 07/17/18 10:00 07/17/18 11:00 Temperature Pulse Rate 86 89 81 Respiratory Rate 28 H 28 H 24 Blood Pressure 123/68 Pulse Oximetry 97 94 L 88 L 07/17/18 11:01 07/17/18 11:08 07/17/18 11:42 Temperature Pulse Rate 80 80 81 Respiratory Rate 23 24 30 H Blood Pressure 119/58 L 117/59 L Pulse Oximetry 99 97 07/17/18 12:00 Temperature 97.9 F Pulse Rate 79 Respiratory Rate 18 Blood Pressure Pulse Oximetry 97 Intake & Output 07/16/18 07/17/18 07/17/18 18:59 06:59 18:59 Intake Total 1280 / 1280 860 / 860 100 / 100 Output Total 900 / 900 1250 / 1250 Balance 380 / 380 -390 / -390 100 / 100 Weight 67.8 kg Intake: IV 400 / 400 400 / 400 100 / 100 Maxipime Inj 2,000 MG In NS Inj 100 / 100 100 ML @ 200 mls/hr IV.SIG Q12H [facility] Rx#:[id number] KCl 20 mEq Premix Inj 20 meq In 300 / 300 100 ml @ 50 mls/hr IV.SIG Q2H [facility] Rx#:[id number] Flagyl 500 MG Inj 100 ML @ 100 100 / 100 200 / 200 100 / 100 mls/hr IV.SIG Q8H [facility] Rx#: [id number] Oral 880 / 880 460 / 460 Output: Urine Amount (Catheter) 900 / 900 1250 / 1250 Indwelling Urethral Catheter 900 / 900 1250 / 1250 Other: Date of Last Bowel Movement 07/16/18 07/17/18 07/17/18 # Bowel Movements 1 Result Diagrams: 07/16/18 04:01 07/17/18 05:30 Objective Remarks: GENERAL: Weak, elderly female SKIN: Warm and dry. Large areas of bruising both arms HEAD: Atraumatic. Normocephalic. EYES: Pupils equal and round. No scleral icterus. No injection or drainage. ENT: No nasal bleeding or discharge. Mucous membranes pink and moist. NECK: Trachea midline. Airway widely patent, no obstructive noises with breathing CARDIOVASCULAR: Irregular irregular, rate controlled, no JVD RESPIRATORY: Some accessory muscle use is present. Clear, comfortable respiratory pattern. GASTROINTESTINAL: Abdomen soft, non-tender, nondistended. No guarding. Bowel sounds active MUSCULOSKELETAL: Extremities without clubbing, cyanosis, or edema. Digits are warm and well-perfused. NEUROLOGICAL: Awake and alert. RASS 0. No gross focal/sensory deficits. Follows commands in all 4 extremities. Weak Assessment and Plan - Assessment and Plan Plan: Active problems: Severe sepsis Hypotension-resolved acute bradycardia possible amiodarone toxicity hypothermia colitis, unclear etiology acute kidney injury GI bleed Plan Adjust FiO2 to keep sats greater than 92%. Discontinue Flagyl, cefepime iv strict i/o's, limit tap water ingestion daily bmp, cbc, mag, phosphorus. Continue aggressive replacement of potassium, magnesium, and phosphorus. Overall impression: Physically and radiographically this appears to have been flash pulmonary edema. She is clearly improving with diuresis, helped by heart rate control. Remains fragile and weak but much improved. Stop antibiotics any time.
--- NOTE | 2018-07-17 14:16 | ECG ---
Date Performed: 07/17/2018 Time Performed: 13:41:36 PTAGE: 83 years EKG: Sinus rhythm WITH FIRST DEGREE AV BLOCK NONSPECIFIC INTRAVENTRICULAR CONDUCTION DELAY T-WAVE ABNORMALITY, CONSID ER ANTEROLATERAL ISCHEMIA NONSPECIFIC INFERIOR T WAVE ABNORMALITY ABNORMAL ECG PREVIOUS TRACING : 07/13/2018 18.28 No significant change from previous tracing noted. DOCTOR: Price Hinson Interpretating Date/Time 07/17/2018 14:15:46
[2018-07-17] MEDS: traZODone 50 MG Tablet PO SCH (21:38)
[2018-07-18] MEDS: ALPRAZolam 0.25 MG Tablet PO PRN (03:28)
[2018-07-18 05:39] LABS: Calcium 8.2 mg/dL (8.5-10.1); Carbon Dioxide 25.6 meq/L (21.0-32.0); Potassium 4.2 meq/L (3.5-5.1)
[2018-07-18] MEDS: Levothyroxine 50 MCG Tablet PO SCH (05:39)
[2018-07-18] MEDS: FLUoxetine 10 MG Capsule PO SCH ×2 (07:51→08:37)
--- NOTE | 2018-07-18 08:38 | P.PNFP ---
Subjective Interval history: Not on NC O2, on room air. Feeling nauseous and weak this morning, doesn't like how she is feeling. Hates the food. Feeling depressed. Having a cough, wants breathing treatments. <Betydianne Louann Waddell N - 07/18/18 08:38> Results - Labs Result diagrams: 07/16/18 04:01 07/18/18 04:35 <LoganJuan José L - 07/18/18 16:35> Abnormal lab results 07/17/18 07/18/18 Range/Units 17:17 04:35 Sodium 133 L (136-145) meq/L BUN 20 H (7-18) mg/dL Estimated GFR 61 L (>89) mL/min POC Glucose 188 H (68-110) mg/dl Random Glucose 173 H (74-106) mg/dL Calcium 8.2 L (8.5-10.1) mg/dL [facility] 07/18/18 04:35 Sodium 133 L Potassium 4.2 Chloride 100 Carbon Dioxide 25.6 BUN 20 H Creatinine 0.89 Calcium 8.2 L <Juan José Ford L - 07/18/18 16:35> Abnormal lab results 07/17/18 07/17/18 07/18/18 Range/Units 10:22 17:17 04:35 Sodium 133 L (136-145) meq/L BUN 20 H (7-18) mg/dL Estimated GFR 61 L (>89) mL/min POC Glucose 173 H 188 H (68-110) mg/dl Random Glucose 173 H (74-106) mg/dL Calcium 8.2 L (8.5-10.1) mg/dL [facility] 07/18/18 04:35 Sodium 133 L Potassium 4.2 Chloride 100 Carbon Dioxide 25.6 BUN 20 H Creatinine 0.89 Calcium 8.2 L <Louann Gonzalez N - 07/18/18 08:38> Physical Exam Vital signs: Vital Signs 07/17/18 21:01 07/18/18 00:00 07/18/18 02:35 Temperature 98.4 F 98.2 F Pulse Rate 80 80 75 Respiratory Rate 18 17 Blood Pressure 128/60 129/60 Pulse Oximetry 95 95 07/18/18 04:00 07/18/18 04:02 07/18/18 08:00 Temperature 98.8 F 98.2 F Pulse Rate 77 80 76 Respiratory Rate 16 14 Blood Pressure 117/57 L 124/58 L Pulse Oximetry 95 95 07/18/18 12:00 Temperature 98.0 F Pulse Rate 65 Respiratory Rate 18 Blood Pressure 113/58 L Pulse Oximetry 95 Intake & Output 07/17/18 07/18/18 07/18/18 18:59 06:59 18:59 Intake Total 800 / 800 680 / 680 100 / 100 Output Total 1250 / 1250 350 / 350 Balance -450 / -450 330 / 330 100 / 100 Intake: IV 300 / 300 200 / 200 100 / 100 Maxipime Inj 2,000 MG In NS Inj 100 / 100 100 / 100 100 ML @ 200 mls/hr IV.SIG Q12H ERIK Rx#:[id number] Flagyl 500 MG Inj 100 ML @ 100 200 / 200 100 / 100 100 / 100 mls/hr IV.SIG Q8H ERIK Rx#: [id number] Oral 500 / 500 480 / 480 Output: Urine 350 / 350 Urine Amount (Catheter) 1250 / 1250 Indwelling Urethral Catheter 1250 / 1250 Other: Date of Last Bowel Movement 07/17/18 07/17/18 07/17/18 # Bowel Movements 1 1 <Juan José Ford L - 07/18/18 16:35> Vital Signs 07/17/18 08:42 07/17/18 09:00 07/17/18 09:42 Temperature Pulse Rate 80 79 86 Respiratory Rate 25 H 20 28 H Blood Pressure 124/58 L 124/58 L 123/68 Pulse Oximetry 97 97 97 07/17/18 10:00 07/17/18 11:00 07/17/18 11:01 Temperature Pulse Rate 89 81 80 Respiratory Rate 28 H 24 23 Blood Pressure 119/58 L Pulse Oximetry 94 L 88 L 99 07/17/18 11:08 07/17/18 11:42 07/17/18 12:00 Temperature 97.9 F Pulse Rate 80 81 79 Respiratory Rate 24 30 H 18 Blood Pressure 117/59 L Pulse Oximetry 97 97 07/17/18 12:42 07/17/18 13:00 07/17/18 13:42 Temperature Pulse Rate 78 77 79 Respiratory Rate 20 20 46 H Blood Pressure 114/56 L 129/67 Pulse Oximetry 95 95 95 07/17/18 14:00 07/17/18 14:42 07/17/18 15:00 Temperature Pulse Rate 77 79 77 Respiratory Rate 22 29 H 18 Blood Pressure 124/60 Pulse Oximetry 96 99 96 07/17/18 15:16 07/17/18 15:42 07/17/18 16:00 Temperature 98.2 F Pulse Rate 80 83 84 Respiratory Rate 20 31 H 26 H Blood Pressure 122/81 Pulse Oximetry 94 L 97 07/17/18 21:01 07/18/18 00:00 07/18/18 02:35 Temperature 98.4 F 98.2 F Pulse Rate 80 80 75 Respiratory Rate 18 17 Blood Pressure 128/60 129/60 Pulse Oximetry 95 95 07/18/18 04:00 07/18/18 04:02 Temperature 98.8 F Pulse Rate 77 80 Respiratory Rate 16 Blood Pressure 117/57 L Pulse Oximetry 95 Intake & Output 07/17/18 07/18/18 07/18/18 18:59 06:59 18:59 Intake Total 800 / 800 680 / 680 Output Total 1250 / 1250 350 / 350 Balance -450 / -450 330 / 330 Intake: IV 300 / 300 200 / 200 Maxipime Inj 2,000 MG In NS Inj 100 / 100 100 / 100 100 ML @ 200 mls/hr IV.SIG Q12H ERIK Rx#:[id number] Flagyl 500 MG Inj 100 ML @ 100 200 / 200 100 / 100 mls/hr IV.SIG Q8H ERIK Rx#: [id number] Oral 500 / 500 480 / 480 Output: Urine 350 / 350 Urine Amount (Catheter) 1250 / 1250 Indwelling Urethral Catheter 1250 / 1250 Other: Date of Last Bowel Movement 07/17/18 07/17/18 # Bowel Movements 1 1 <Abid R2Louann N - 07/18/18 08:38> Narrative: GENERAL: Elderly appearing female, lying in bed on 2 L nasal cannula oxygen SKIN: Warm and dry. Multiple ecchymoses over bilateral shins and arms. HEAD: Normocephalic. CARDIOVASCULAR: regular rhythm and rate. 3/6 holosystolic murmur at the apex RESPIRATORY: No bilateral crackles or rhonchi heard. Inspiratory airflow good. GASTROINTESTINAL: Abdomen soft and nontender in any quadrant. Normal bowel sounds appreciated. Nondistended. MUSCULOSKELETAL: No cyanosis. Minimal edema noted over dorsum of feet bilaterally. Moves all extremities spontaneously. <Abid R2,Louann N - 07/18/18 08:38> - Urinary Catheter Management Indwelling Urethral Catheter Cath placed during this visit: no <Juan José Ford - 07/18/18 16:35> yes <Louann Gonzalez N - 07/18/18 08:38> Reason for continuing: Hourly intake/output <Abid Louann Waddell N - 07/18/18 08:38 > Insertion date: 07/13/18 <Abid R2Louann N - 07/18/18 08:38> Insertion time: 14:30 <Abid Louann Waddell N - 07/18/18 08:38> Assessment and Plan - Assessment (1) Nausea Code(s): R11.0 - Nausea Status: Acute (2) Acute hypoxemic respiratory failure Code(s): J96.01 - Acute respiratory failure with hypoxia Status: Acute (3) Mitral regurgitation Code(s): I34.0 - Nonrheumatic mitral (valve) insufficiency Status: Acute (4) Colitis Code(s): K52.9 - Noninfective gastroenteritis and colitis, unspecified Status : Acute (5) Electrolyte abnormality Code(s): E87.8 - Other disorders of electrolyte and fluid balance, not elsewhere classified Status: Acute (6) Afib Code(s): I48.91 - Unspecified atrial fibrillation Status: Acute (7) Hyponatremia Code(s): E87.1 - Hypo-osmolality and hyponatremia Status: Acute (8) Anxiety Code(s): F41.9 - Anxiety disorder, unspecified Status: Acute (9) Hypothyroid Code(s): E03.9 - Hypothyroidism, unspecified Status: Acute (10) Sepsis associated hypotension Code(s): A41.9 - Sepsis, unspecified organism; I95.9 - Hypotension, unspecified Status: Resolved <Juan José Ford - 07/18/18 16:35> (1) Nausea Code(s): R11.0 - Nausea Status: Acute Plan: Give Reglan TID before meals (2) Acute hypoxemic respiratory failure Code(s): J96.01 - Acute respiratory failure with hypoxia Status: Acute Plan: Flash pulmonary edema after EGD and colonoscopy 07/13 CC consulted to assist in management and monitor, based on complexity of patient 's risk factors and comorbidities S/p IV cefepime (day #10) to cover for possible HCAP. Abx are DC'd. Repeat echo 07/14 showed worsening of ejection fraction and pulmonary hypertension, along w/left sided pleural effusion. Tricuspid regurgitation is now moderate to severe. CTA shows no evidence of PE Improving w/diuresis, currently at Lasix 60 mg IV BID Electrolyte replacement as needed. Potassium chloride 20 mg 3 times daily ordered CXR shows significant improvement in pulmonary congestion Duonebs BID, spaced out to prevent prolonged tachycardia (3) Mitral regurgitation Code(s): I34.0 - Nonrheumatic mitral (valve) insufficiency Status: Acute Plan: Per echo 18: Normal left ventricular size. Wall thickness is measured at the upper limits of normal. The left ventricular systolic function is normal with an estimated ejection fraction in the range of 55-60%. The left atrial size is mildly dilated. Moderate to severe mitral valve regurgitation. Trace aortic valve regurgitation. There is moderate tricuspid regurgitation. The estimated pulmonary arterial pressure is 70 mmHg. Echo 07.14.18 shows mildly reduced EF of 50% (range), worsening right ventricular systolic function, tricuspid valve regurgitation, and pulmonary HTN (sever at 77 mm hg). Left sided pleural effusion is evident. May predispose patient to atelectasis and likely contributed to pulmonary edema Cardiology following Currently on flecainide and Eliquis Con't to diuresis (4) Colitis Code(s): K52.9 - Noninfective gastroenteritis and colitis, unspecified Status : Acute Plan: Sepsis associated with possible colitis (per CT scan), hypotension resolved, and bradycardia resolved. -Critical care consulted and signed off 07/11 -Blood cultures from 07/08-no growth to date -ID consulted. Patient placed on Flagyl - S/p colonoscopy and egd for evidence of source for colitis. No acute abnormalities found -On Flagyl 500 mg IV every 8 hours (07/09 - present), day #10 DC Flagyl as course has been complete for intraabdominal infection (5) Electrolyte abnormality Code(s): E87.8 - Other disorders of electrolyte and fluid balance, not elsewhere classified Status: Acute Plan: Monitoring potassium and phosphate, CC assisting to replete as needed (6) Afib Code(s): I48.91 - Unspecified atrial fibrillation Status: Acute Plan: Multiple hospitalizations for paroxysmal, symptomatic afib S/p multiple ablations Normal rhythm currently -Currently holding metoprolol -Continue to monitor on telemetry -Continue to follow cardiology recommendations: -flecainide 100mg BID (7) Hyponatremia Code(s): E87.1 - Hypo-osmolality and hyponatremia Status: Acute Plan: Mild hyponatremia with a sodium of 132 -Restrict fluid to 1.5 L daily (8) Anxiety Code(s): F41.9 - Anxiety disorder, unspecified Status: Acute Plan: Patient exhibited signs of delirium. Continue: Xanax 0.25 mg p.o. as needed Prozac 10 mg daily for longer-acting anxiety control Trazodone 80 mg at night for sleep (9) Hypothyroid Code(s): E03.9 - Hypothyroidism, unspecified Status: Acute Plan: Continue levothyroxine 50 mcg daily (10) Sepsis associated hypotension Code(s): A41.9 - Sepsis, unspecified organism; I95.9 - Hypotension, unspecified Status: Resolved Plan: Resolved <Louann Gonzalez N - 07/18/18 08:29> - Assessment and Plan Hospital course: -Status post normal saline bolus 1 L x4 -Stool C. difficile screen negative -Leukocytosis improving; 9.4 on admission and then trended: 24.9, 17.4, 14.7 -Lactic acid trend 1.4 -> 2.3 -> 1.9 -CRP elevated at 2.44 -TSH within normal limits but free T4 elevated at 1.76, free T3 decreased at 0.86 -Thoracic aorta CT: No evidence for aortic aneurysm or dissection, diffuse colonic wall thickening most notably in the transverse colon. Findings are most concerning for colitis, likely infectious or inflammatory in etiology. The mesenteric arteries are patent which makes ischemic etiology unlikely. Moderate severe sigmoid diverticulosis. -Head CT: No acute intracranial abnormality. Atrophy and chronic white matter changes -Abdominal CT without contrast: Unremarkable study without evidence of bowel obstruction or free fluid or free air of any significance. Gallbladder is well distended. Kidneys are functioning. Degenerative arthritis lower lumbar spine. Bibasilar consolidation, likely atelectasis. Sigmoid diverticulosis. Hypotension resolved. - Echo done on 07/11 showed moderate to severe mitral regurgitation and bilateral atelactasis. Patient was encouraged to mobilize with PT and breathing treatments were ordered but spaced out to prevent arrythmias. - 07/13 endoscopy and colonoscopy. No abnormalities on egd, colonsocopy showed large internal hemorrhoids and severe diverticulosis. Colonoscopy recommended in 1 year. After procedure, patient went into acute respiratory failure 2/2 to flash pulmonary edema. Underwent diuresis to improve symptoms and monitored on telemetry. Started on Prozac for better anxiety control and trazodone for insomnia. <Louann Gonzalez - 07/18/18 08:38> Discharge Planning: DC to SNF likely, possible tomorrow <Louann Gonzalez - 07/18/18 08:38> - Attending Attestation Attending note: I discussed management plan with the resident team and agree with documentation above. I evaluated the patient independently this afternoon. Reviewing her history, she's had a complicated course. She has a history of atrial fibrillation. She developed hypotension after taking amiodarone and flecainide. She presented with symptoms of colitis and sepsis. She developed acute pulmonary edema after colonoscopy and EGD to evaluate the colitis. This put her in the ICU for a period of time. She is now out of the ICU and respiratory status is much improved. Diuretics are being used to offset the fluid overload, decrease pulmonary edema, which seems to be working. Antibiotics to treat for hospital acquired pneumonia and colitis have been stopped. By my exam, she seems very depressed. This seems most like an acute depression involving her particular situation as she does not have a reported history of depression. She may benefit from antidepressants if this persists, although those wont be expected to work in the acute setting. She also has significant valvular dysfunction which may be predisposed her to the acute pulmonary edema. Will continue to follow her course. - Juan José Ford <Juan José Ford - 07/18/18 16:35>
[2018-07-18] MEDS: Flecainide 100 MG Tablet PO SCH ×2 (08:42→21:10)
[2018-07-18] MEDS: Potassium Chloride 10 MEQ ER Capsule PO SCH ×2 (13:55→17:34)
--- NOTE | 2018-07-18 20:59 | P.PNCA ---
Subjective Interval history: No events overnight Feeling better Off oxygen, up to the chair Medications and Allergies Active Medications: Active Medications Acetaminophen (Tylenol) 650 mg PO Q4H PRN PRN Reason: Temp > 100.4 Albuterol (Albuterol Neb (Prn)) 2.5 mg NEB ONCE PRN PRN Reason: SHORTNESS OF BREATH Last Admin: 07/12/18 16:10 Dose: 2.5 mg Albuterol (Duoneb Neb (Keith)) 1 ampul NEB Q12HR NEB [facility] Last Admin: 07/18/18 19:44 Dose: 1 ampul Alprazolam (Xanax) 0.25 mg PO Q12H PRN PRN Reason: ANXIETY Last Admin: 07/18/18 03:28 Dose: 0.25 mg Apixaban (Eliquis) 5 mg PO BID [facility] Last Admin: 07/18/18 08:33 Dose: Not Given Flecainide Acetate (Tambocor) 100 mg PO BID [facility] Last Admin: 07/18/18 08:42 Dose: 100 mg Fluoxetine HCl (Prozac) 10 mg PO DAILY [facility] Last Admin: 07/18/18 08:37 Dose: Not Given Furosemide (Lasix Inj) 60 mg IV.PUSH Q12H [facility] Last Admin: 07/18/18 13:55 Dose: 60 mg Hydromorphone HCl (Dilaudid Pf Inj) 0.5 mg IV.PUSH ONCE PRN PRN Reason: ABDOMINAL PAIN Last Admin: 07/09/18 00:54 Dose: 0.5 mg Lactated Ringer's (Lr 1000 Ml Inj) 1,000 mls @ 30 mls/hr IV.SIG .Q24H [facility] Last Admin: 07/15/18 07:27 Dose: Not Given Sodium Chloride (Ns Inj) 500 mls @ 30 mls/hr IV.SIG .Q10H [facility] Last Admin: 07/15/18 07:28 Dose: Not Given Levothyroxine Sodium (Synthroid) 50 mcg PO DAILY@0600 [facility] Last Admin: 07/18/18 05:39 Dose: 50 mcg Metoclopramide HCl (Reglan Inj) 5 mg IV.PUSH Q8H [facility]; Protocol Stop: 07/19/18 08:27 Last Admin: 07/18/18 17:35 Dose: 5 mg Ondansetron HCl (Zofran Inj) 4 mg IV.PUSH Q6H PRN PRN Reason: NAUSEA OR VOMITING Last Admin: 07/12/18 21:03 Dose: 4 mg Patch Removal (Remove Old Patch) 1 each T-DERMAL Q7D [facility] Last Admin: 07/12/18 17:38 Dose: 1 each Potassium Chloride (Kcl) 20 meq PO TID [facility] Last Admin: 07/18/18 17:34 Dose: 20 meq Sodium Chloride (Ns Flush) 2 ml IV.FLUSH BID [facility] Last Admin: 07/18/18 08:37 Dose: 2 ml Sodium Chloride (Ns Flush) 2 ml IV.FLUSH PRN PRN PRN Reason: FLUSH AFTER USING IV ACCESS Trazodone HCl (Desyrel) 50 mg PO HS [facility] Last Admin: 07/17/18 21:38 Dose: 50 mg Allergies Allergy/AdvReac Type Severity Reaction Status Date / Time cefaclor Allergy Severe RASH Verified 07/04/18 09:33 paroxetine Allergy Severe Rash Verified 07/04/18 09:33 Sulfa (Sulfonamide Allergy Severe RASH Verified 07/04/18 09:33 Antibiotics) ciprofloxacin Allergy Unknown GI UPSET Verified 07/04/18 09:33 clonidine Allergy Unknown SKIN Verified 07/04/18 09:33 IRRITATION latex bandages AdvReac Mild SKIN Uncoded 07/02/18 10:47 REDNESS, RASH Home Medications Medication Instructions Recorded Confirmed Type alprazolam 0.25 mg PO BID PRN 05/18/18 07/08/18 History amiodarone 200 mg PO DAILY 05/18/18 07/08/18 History apixaban [Eliquis] 5 mg PO BID 05/18/18 07/08/18 History estradiol 0.5 mg PO WEEKLY 05/18/18 07/08/18 History levothyroxine 50 mcg PO DAILY 05/18/18 07/08/18 History potassium chloride 20 meq PO DAILY 05/18/18 07/08/18 History Physical Exam Vital signs: Vital Signs 07/17/18 21:01 07/18/18 00:00 07/18/18 02:35 Temperature 98.4 F 98.2 F Pulse Rate 80 80 75 Respiratory Rate 18 17 Blood Pressure 128/60 129/60 Pulse Oximetry 95 95 07/18/18 04:00 07/18/18 04:02 07/18/18 08:00 Temperature 98.8 F 98.2 F Pulse Rate 77 80 76 Respiratory Rate 16 14 Blood Pressure 117/57 L 124/58 L Pulse Oximetry 95 95 07/18/18 12:00 07/18/18 16:00 07/18/18 19:48 Temperature 98.0 F 97.8 F Pulse Rate 65 76 71 Respiratory Rate 18 16 15 Blood Pressure 113/58 L 109/53 L Pulse Oximetry 95 95 Intake & Output 07/18/18 07/18/18 07/19/18 06:59 18:59 06:59 Intake Total 680 / 680 820 / 820 Output Total 350 / 350 1500 / 1500 Balance 330 / 330 -680 / -680 Intake: IV 200 / 200 100 / 100 Maxipime Inj 2,000 MG In NS Inj 100 / 100 100 ML @ 200 mls/hr IV.SIG Q12H KEITH Rx#:[id number] Flagyl 500 MG Inj 100 ML @ 100 100 / 100 100 / 100 mls/hr IV.SIG Q8H KEITH Rx#: [id number] Oral 480 / 480 720 / 720 Output: Urine 350 / 350 1500 / 1500 Other: Date of Last Bowel Movement 07/17/18 07/17/18 # Bowel Movements 1 1 Narrative: GENERAL: Elderly appearing female, lying in bed on 2 L nasal cannula oxygen SKIN: Warm and dry. Multiple ecchymoses over bilateral shins and arms. HEAD: Normocephalic. CARDIOVASCULAR: regular rhythm and rate. 3/6 holosystolic murmur at the apex RESPIRATORY: No bilateral crackles or rhonchi heard. Inspiratory airflow good. GASTROINTESTINAL: Abdomen soft and nontender in any quadrant. Normal bowel sounds appreciated. Nondistended. MUSCULOSKELETAL: No cyanosis. Minimal edema noted over dorsum of feet bilaterally. Moves all extremities spontaneously. - Urinary Catheter Management Indwelling Urethral Catheter Cath placed during this visit: yes Reason for continuing: Hourly intake/output Insertion date: 07/13/18 Insertion time: 14:30 Results 07/16/18 04:01 07/18/18 04:35 Comprehensive Metabolic Panel 07/17/18 07/18/18 Range/Units 05:30 04:35 Sodium 132 L 133 L (136-145) meq/L Potassium 4.3 D 4.2 (3.5-5.1) meq/L Chloride 98 100 (98-107) meq/L Carbon Dioxide 26.3 25.6 (21.0-32.0) meq/L BUN 25 H 20 H (7-18) mg/dL Creatinine 1.11 H 0.89 (0.50-1.00) mg/dL Calcium 8.0 L 8.2 L (8.5-10.1) mg/dL Intake and Output 07/18/18 07/18/18 07/18/18 06:59 14:59 22:59 Intake Total 680 / 680 100 / 100 720 / 720 Output Total 350 / 350 1500 / 1500 Balance 330 / 330 100 / 100 -780 / -780 Intake: IV 200 / 200 100 / 100 Maxipime Inj 2,000 MG In NS Inj 100 / 100 100 ML @ 200 mls/hr IV.SIG Q12H KEITH Rx#:[id number] Flagyl 500 MG Inj 100 ML @ 100 100 / 100 100 / 100 mls/hr IV.SIG Q8H KEITH Rx#: [id number] Oral 480 / 480 720 / 720 Output: Urine 350 / 350 1500 / 1500 Other: Date of Last Bowel Movement 07/17/18 # Bowel Movements 1 1 - Imaging and Cardiology Imaging: Impressions Chest X-Ray 07/17/18 04:00 CONCLUSION: Substantially decreased pleural effusions and basilar consolidation, now small/ mild. Assessment and Plan - Assessment (1) Bradycardia Code(s): R00.1 - Bradycardia, unspecified Status: Acute (2) Colitis Code(s): K52.9 - Noninfective gastroenteritis and colitis, unspecified Status : Acute (3) Afib Code(s): I48.91 - Unspecified atrial fibrillation Status: Acute (4) Hypertension Code(s): I10 - Essential (primary) hypertension Status: Acute (5) Hypothyroid Code(s): E03.9 - Hypothyroidism, unspecified Status: Acute (6) Anxiety Code(s): F41.9 - Anxiety disorder, unspecified Status: Acute (7) SKY (acute kidney injury) Code(s): N17.9 - Acute kidney failure, unspecified Status: Acute (8) Sepsis associated hypotension Code(s): A41.9 - Sepsis, unspecified organism; I95.9 - Hypotension, unspecified Status: Resolved - Plan 1. Abdominal pain, which appears to be due to colitis. Clinically better 2. Sepsis. Resolved, most likely secondary to colitis 3. Hypotension responsive to IV fluids. Resolved 4. Acute bradycardia secondary to medications. Amiodarone stopped Metoprolol held HR's normal and patient back in NSR at the present time. 5. Difficult to control atrial fibrillation with history of atrial fibrillation ablation x 2 and atrial flutter ablation x 1. Appears to be back in NSR. Continue apixaban, flecainide. 6. Previous hypothermia. 7. Acute kidney injury. 8. Flash pulmonary edema EKG with minimal changes, similar to previous Most likely due to known moderate to severe MR Troponin levels minimally elevated, most likely type 2 Repeat echo with no significant change Overall feel this is not due to coronary artery disease, but most likely her mitral regurgitation Bilateral pleural effusion much improved on today's CXR Will need work up for mitral valve regurgitation She would prefer to get better and do electively 9. Discussed going to SNF She had a horrible experience, but wants to do home PT From my standpoint appears relatively stable, PT will work with her today and will see about discharge tomorrow
[2018-07-18] MEDS: traZODone 50 MG Tablet PO SCH (21:10)
[2018-07-19] MEDS: ALPRAZolam 0.25 MG Tablet PO PRN (00:29)
[2018-07-19] MEDS: Levothyroxine 50 MCG Tablet PO SCH (05:46)
[2018-07-19 07:42] LABS: Carbon Dioxide 27.6 meq/L (21.0-32.0); Potassium 3.3 meq/L (3.5-5.1)
[2018-07-19 09:01] LABS: Baso % (Auto) 0.3 % (0.0-2.0); Eos # (Auto) 0.4 th/mm3 (0.0-0.4); Eos % (Auto) 2.6 % (0.0-4.0); Hematocrit 31.9 % (35.0-46.0); Lymph # (Auto) 1.3 th/mm3 (1.0-4.8); Lymph % (Auto) 9.5 % (9.0-44.0); Mean Corpuscular HGB Conc 34.5 % (32.0-36.0); Mean Corpuscular Hemoglobin 32.4 pg (27.0-34.0); Mean Corpuscular Volume 93.9 fL (80.0-100.0); Mean Platelet Volume 7.8 fL (7.0-11.0); Mono # (Auto) 1.3 th/mm3 (0.0-0.9); Mono % (Auto) 9.7 % (0.0-8.0); Neut # (Auto) 10.7 th/mm3 (1.8-7.7); Neut % (Auto) 77.9 % (16.0-70.0); Platelet Count 301 th/mm3 (150-450); Red Cell Distribution Width 14.8 % (11.6-17.2); White Blood Count 13.8 th/mm3 (4.0-11.0)
[2018-07-19] MEDS: Flecainide 100 MG Tablet PO SCH (09:02)
[2018-07-19] MEDS: Potassium Chloride 10 MEQ ER Capsule PO SCH ×2 (09:02→14:03)
[2018-07-19] MEDS: FLUoxetine 10 MG Capsule PO SCH (09:02)
[2018-07-19 09:52] LABS: Eosinophils 2 % (0-4); Lymphocytes 6 % (9-44); Monocytes 10 % (0-8); Toxic Granulation 1+
[2018-07-19 09:53] LABS: Platelet Estimate Normal (Normal); Platelet Morphology Normal (Normal)
--- NOTE | 2018-07-19 11:08 | P.PNFP ---
Subjective Interval history: Patient reports feeling much better today, stronger. She reports that yesterday she was out of bed walking around her room with a walker. We discussed patient's preference for home physical therapy rather than PT at rehab. Discussed plan of care to get physical therapy recommendations today. Patient currently denies any chest pain, abdominal pain, nausea, diarrhea, fever. She reports one episode of vomiting over the past 24 hours. She reports that her chills and shortness of breath are at baseline. <Miranda JoyceChandler - 07/19/18 11:08> Results - Labs Result diagrams: 07/19/18 06:57 07/19/18 06:27 <LoganJuan José Nereida - 07/19/18 13:23> Abnormal lab results 07/19/18 07/19/18 Range/Units 06:27 06:57 WBC 13.8 H (4.0-11.0) th/mm3 RBC 3.40 L (4.00-5.30) mil/mm3 Hgb 11.0 L (11.6-15.3) gm/dL Hct 31.9 L (35.0-46.0) % Neut % (Auto) 77.9 H (16.0-70.0) % [place] % (Auto) 9.7 H (0.0-8.0) % Neut # (Auto) 10.7 H (1.8-7.7) th/mm3 [place] # (Auto) 1.3 H (0.0-0.9) th/mm3 Seg Neuts % (Manual) 78 H (16-70) % Lymphocytes % (Manual) 6 L (9-44) % Monocytes % (Manual) 10 H (0-8) % Abs Neuts (Manual) 11.3 H (1.8-7.7) th/mm3 Toxic Granulation 1+ H (None) Sodium 135 L (136-145) meq/L Potassium 3.3 L D (3.5-5.1) meq/L BUN 20 H (7-18) mg/dL Creatinine 1.09 H (0.50-1.00) mg/dL Estimated GFR 48 L (>89) mL/min Random Glucose 140 H (74-106) mg/dL Calcium 8.0 L (8.5-10.1) mg/dL Short CBC 07/19/18 Range/Units 06:57 WBC 13.8 H (4.0-11.0) th/mm3 Hgb 11.0 L (11.6-15.3) gm/dL Hct 31.9 L (35.0-46.0) % Plt Count 301 (150-450) th/mm3 BMP 07/19/18 06:27 Sodium 135 L Potassium 3.3 L D Chloride 99 Carbon Dioxide 27.6 BUN 20 H Creatinine 1.09 H Calcium 8.0 L <Young,Juan José L - 07/19/18 13:23> Abnormal lab results 07/19/18 07/19/18 Range/Units 06:27 06:57 WBC 13.8 H (4.0-11.0) th/mm3 RBC 3.40 L (4.00-5.30) mil/mm3 Hgb 11.0 L (11.6-15.3) gm/dL Hct 31.9 L (35.0-46.0) % Neut % (Auto) 77.9 H (16.0-70.0) % [place] % (Auto) 9.7 H (0.0-8.0) % Neut # (Auto) 10.7 H (1.8-7.7) th/mm3 [place] # (Auto) 1.3 H (0.0-0.9) th/mm3 Seg Neuts % (Manual) 78 H (16-70) % Lymphocytes % (Manual) 6 L (9-44) % Monocytes % (Manual) 10 H (0-8) % Abs Neuts (Manual) 11.3 H (1.8-7.7) th/mm3 Toxic Granulation 1+ H (None) Sodium 135 L (136-145) meq/L Potassium 3.3 L D (3.5-5.1) meq/L BUN 20 H (7-18) mg/dL Creatinine 1.09 H (0.50-1.00) mg/dL Estimated GFR 48 L (>89) mL/min Random Glucose 140 H (74-106) mg/dL Calcium 8.0 L (8.5-10.1) mg/dL Short CBC 07/19/18 Range/Units 06:57 WBC 13.8 H (4.0-11.0) th/mm3 Hgb 11.0 L (11.6-15.3) gm/dL Hct 31.9 L (35.0-46.0) % Plt Count 301 (150-450) th/mm3 BMP 07/19/18 06:27 Sodium 135 L Potassium 3.3 L D Chloride 99 Carbon Dioxide 27.6 BUN 20 H Creatinine 1.09 H Calcium 8.0 L <Juan José Miramontes A - 07/19/18 11:08> Physical Exam Vital signs: Vital Signs 07/18/18 16:00 07/18/18 19:20 07/18/18 19:48 Temperature 97.8 F 97.9 F Pulse Rate 76 73 71 Respiratory Rate 16 17 15 Blood Pressure 109/53 L 122/60 Pulse Oximetry 95 98 07/18/18 23:40 07/19/18 04:55 07/19/18 08:05 Temperature 98.5 F 97.8 F 97.7 F Pulse Rate 74 73 78 Respiratory Rate 16 16 16 Blood Pressure 121/59 L 124/61 117/56 L Pulse Oximetry 94 L 95 95 07/19/18 08:33 Temperature Pulse Rate 70 Respiratory Rate 18 Blood Pressure Pulse Oximetry Intake & Output 07/18/18 07/19/18 07/19/18 18:59 06:59 18:59 Intake Total 820 / 820 750 / 750 Output Total 1500 / 1500 903 / 903 Balance -680 / -680 -153 / -153 Weight 67.8 kg Intake: IV 100 / 100 Flagyl 500 MG Inj 100 ML @ 100 100 / 100 mls/hr IV.SIG Q8H [facility] Rx#: [id number] Oral 720 / 720 750 / 750 Output: Urine 1500 / 1500 Stool 3 / 3 Urine Amount (Catheter) 900 / 900 Indwelling Urethral Catheter 900 / 900 Other: Date of Last Bowel Movement 07/17/18 07/19/18 07/19/18 # Bowel Movements 1 1 <Juan José Ford L - 07/19/18 13:23> Vital Signs 07/18/18 12:00 07/18/18 16:00 07/18/18 19:20 Temperature 98.0 F 97.8 F 97.9 F Pulse Rate 65 76 73 Respiratory Rate 18 16 17 Blood Pressure 113/58 L 109/53 L 122/60 Pulse Oximetry 95 95 98 07/18/18 19:48 07/18/18 23:40 07/19/18 04:55 Temperature 98.5 F 97.8 F Pulse Rate 71 74 73 Respiratory Rate 15 16 16 Blood Pressure 121/59 L 124/61 Pulse Oximetry 94 L 95 07/19/18 08:05 07/19/18 08:33 Temperature 97.7 F Pulse Rate 78 70 Respiratory Rate 16 18 Blood Pressure 117/56 L Pulse Oximetry 95 Intake & Output 07/18/18 07/19/18 07/19/18 18:59 06:59 18:59 Intake Total 820 / 820 750 / 750 Output Total 1500 / 1500 903 / 903 Balance -680 / -680 -153 / -153 Weight 67.8 kg Intake: IV 100 / 100 Flagyl 500 MG Inj 100 ML @ 100 100 / 100 mls/hr IV.SIG Q8H [facility] Rx#: [id number] Oral 720 / 720 750 / 750 Output: Urine 1500 / 1500 Stool 3 / 3 Urine Amount (Catheter) 900 / 900 Indwelling Urethral Catheter 900 / 900 Other: Date of Last Bowel Movement 07/17/18 07/19/18 07/19/18 # Bowel Movements 1 1 <Juan José Miramontes 07/19/18 11:08> Narrative: GENERAL: Elderly appearing female, lying in bed on 2 L nasal cannula oxygen SKIN: Warm and dry. Multiple ecchymoses over bilateral shins and arms. HEAD: Normocephalic. CARDIOVASCULAR: regular rhythm and rate. 3/6 holosystolic murmur at the apex RESPIRATORY: No bilateral crackles or rhonchi heard. Inspiratory airflow good. GASTROINTESTINAL: Abdomen soft and nontender in any quadrant. Normal bowel sounds appreciated. Nondistended. MUSCULOSKELETAL: No cyanosis. Minimal edema noted over dorsum of feet bilaterally. Moves all extremities spontaneously. <Juan José Miramontes 07/19/18 11:08> - Urinary Catheter Management Indwelling Urethral Catheter Cath placed during this visit: no <Juan José Ford 07/19/18 13:23> yes, but has since been removed by the nurse <Juan José Miramontes 07/19/18 11:12> Reason for continuing: Decision to DC catheter <Juan José Miramontes 11:08> Insertion date: 07/13/18 <Juan José Miramontes 07/19/18 11:08> Insertion time: 14:30 <Juan José Miramontes - 07/19/18 11:08> Removal date: 07/19/18 <Juan José Miramontes - 07/19/18 11:08> Removal time: 05:50 <Juan José Miramontes - 07/19/18 11:08> Assessment and Plan - Assessment (1) Acute hypoxemic respiratory failure Code(s): J96.01 - Acute respiratory failure with hypoxia Status: Acute (2) Mitral regurgitation Code(s): I34.0 - Nonrheumatic mitral (valve) insufficiency Status: Acute (3) Colitis Code(s): K52.9 - Noninfective gastroenteritis and colitis, unspecified Status : Acute (4) Electrolyte abnormality Code(s): E87.8 - Other disorders of electrolyte and fluid balance, not elsewhere classified Status: Acute (5) Afib Code(s): I48.91 - Unspecified atrial fibrillation Status: Acute (6) Hyponatremia Code(s): E87.1 - Hypo-osmolality and hyponatremia Status: Acute (7) Anxiety Code(s): F41.9 - Anxiety disorder, unspecified Status: Acute (8) Hypothyroid Code(s): E03.9 - Hypothyroidism, unspecified Status: Acute (9) Sepsis associated hypotension Code(s): A41.9 - Sepsis, unspecified organism; I95.9 - Hypotension, unspecified Status: Resolved <Juan José Ford - 07/19/18 13:23> (1) Acute hypoxemic respiratory failure Code(s): J96.01 - Acute respiratory failure with hypoxia Status: Acute Plan: Flash pulmonary edema after EGD and colonoscopy 07/13 CC consulted to assist in management and monitor, based on complexity of patient 's risk factors and comorbidities S/p IV cefepime (day #10) to cover for possible HCAP. Abx are DC'd. Repeat echo 07/14 showed worsening of ejection fraction and pulmonary hypertension, along w/left sided pleural effusion. Tricuspid regurgitation is now moderate to severe. CTA shows no evidence of PE Improving w/diuresis, currently at Lasix 60 mg IV BID; will convert to p.o. upon discharge Electrolyte replacement as needed. Potassium chloride 20 mg 3 times daily ordered CXR shows significant improvement in pulmonary congestion Duonebs BID, spaced out to prevent prolonged tachycardia PT consult (2) Mitral regurgitation Code(s): I34.0 - Nonrheumatic mitral (valve) insufficiency Status: Acute Plan: Per echo 07.11.18: Normal left ventricular size. Wall thickness is measured at the upper limits of normal. The left ventricular systolic function is normal with an estimated ejection fraction in the range of 55-60%. The left atrial size is mildly dilated. Moderate to severe mitral valve regurgitation. Trace aortic valve regurgitation. There is moderate tricuspid regurgitation. The estimated pulmonary arterial pressure is 70 mmHg. Echo 07.14.18 shows mildly reduced EF of 50% (range), worsening right ventricular systolic function, tricuspid valve regurgitation, and pulmonary HTN (sever at 77 mm hg). Left sided pleural effusion is evident. May predispose patient to atelectasis and likely contributed to pulmonary edema Cardiology following Currently on flecainide and Eliquis Con't to diuresis as above PT consult (3) Colitis Code(s): K52.9 - Noninfective gastroenteritis and colitis, unspecified Status : Acute Plan: Sepsis associated with possible colitis (per CT scan), hypotension resolved, and bradycardia resolved. -Critical care consulted and signed off 07/11 -Blood cultures from 07/08-no growth to date -ID consulted. Patient placed on Flagyl, completed course -S/p colonoscopy and egd for evidence of source for colitis. No acute abnormalities found -D/c Flagyl 500 mg IV every 8 hours (07/09 - 07/18), day #10 (4) Nausea Code(s): R11.0 - Nausea Status: Acute Plan: Give Reglan TID before meals (5) Electrolyte abnormality Code(s): E87.8 - Other disorders of electrolyte and fluid balance, not elsewhere classified Status: Acute Plan: Monitoring potassium and repleting Mg, phosphate wnl on 07/16/18 (6) Afib Code(s): I48.91 - Unspecified atrial fibrillation Status: Acute Plan: Multiple hospitalizations for paroxysmal, symptomatic afib S/p multiple ablations Normal rhythm currently -Currently holding metoprolol -Continue to monitor on telemetry -Continue to follow cardiology recommendations: -flecainide 100mg BID -Eliquis 5 mg p.o. twice daily (7) Hyponatremia Code(s): E87.1 - Hypo-osmolality and hyponatremia Status: Acute Plan: Mild hyponatremia with a sodium of 135 -Restrict fluid to 1.5 L daily (8) Anxiety Code(s): F41.9 - Anxiety disorder, unspecified Status: Acute Plan: Patient exhibited signs of delirium. Continue: Xanax 0.25 mg p.o. as needed Prozac 10 mg daily for longer-acting anxiety control Trazodone 80 mg at night for sleep (9) Hypothyroid Code(s): E03.9 - Hypothyroidism, unspecified Status: Acute Plan: Continue levothyroxine 50 mcg daily (10) Sepsis associated hypotension Code(s): A41.9 - Sepsis, unspecified organism; I95.9 - Hypotension, unspecified Status: Resolved Plan: Resolved <Juan José Miramontes - 07/19/18 11:11> - Assessment and Plan Hospital course: -Status post normal saline bolus 1 L x4 -Stool C. difficile screen negative -Leukocytosis improving; 9.4 on admission and then trended: 24.9, 17.4, 14.7 -Lactic acid trend 1.4 -> 2.3 -> 1.9 -CRP elevated at 2.44 -TSH within normal limits but free T4 elevated at 1.76, free T3 decreased at 0.86 -Thoracic aorta CT: No evidence for aortic aneurysm or dissection, diffuse colonic wall thickening most notably in the transverse colon. Findings are most concerning for colitis, likely infectious or inflammatory in etiology. The mesenteric arteries are patent which makes ischemic etiology unlikely. Moderate severe sigmoid diverticulosis. -Head CT: No acute intracranial abnormality. Atrophy and chronic white matter changes -Abdominal CT without contrast: Unremarkable study without evidence of bowel obstruction or free fluid or free air of any significance. Gallbladder is well distended. Kidneys are functioning. Degenerative arthritis lower lumbar spine. Bibasilar consolidation, likely atelectasis. Sigmoid diverticulosis. Hypotension resolved. - Echo done on 07/11 showed moderate to severe mitral regurgitation and bilateral atelactasis. Patient was encouraged to mobilize with PT and breathing treatments were ordered but spaced out to prevent arrythmias. - 07/13 endoscopy and colonoscopy. No abnormalities on egd, colonsocopy showed large internal hemorrhoids and severe diverticulosis. Colonoscopy recommended in 1 year. After procedure, patient went into acute respiratory failure 2/2 to flash pulmonary edema. Underwent diuresis to improve symptoms and monitored on telemetry. Started on Prozac for better anxiety control and trazodone for insomnia. <Juan José Miramontes - 07/19/18 11:12> Discussed Condition With: s/d/w Dr. Morales <Miranda JoyceChandler - 07/19/18 11:12> - Attending Attestation The exam, history, and the medical decision-making described in the above note were completed with the assistance of the resident physician. I reviewed and agree with the findings presented. I attest that I had a [id number] encounter with the patient on the same day, and personally performed and documented my assessment and findings in the medical record. I evaluated patient independently of the residents. She reports feeling good today. She was able to ambulate down the hallway with her walker with PT. Discussed discharge planning with her and her at length. They are refusing any inpatient physical therapy or [facility] facility, preferring instead to have home health and home physical therapy. reports that his daughter and sister will also be around the house to help. Discussed discharge plan at length and need to be very careful at home. She has walker and wheelchair at home already. Will coordinate plan with physical therapist's recommendations. She also needs close follow up with her PCP and rn lactation. <uJan José Ford - 07/19/18 13:23>
--- NOTE | 2018-07-19 11:11 | P.DCO ---
- Diagnosis (1) Physical deconditioning Status: Acute (2) Weakness acquired in ICU Status: Acute (3) Acute hypoxemic respiratory failure Status: Acute (4) Mitral regurgitation Status: Acute - Physical Therapy Order: Evaluate and treat, Improve ambulation, Strength and gait training - Occupational Therapy Order: Evaluate and treat, Improve ADL, Gross motor coordination, Fine motor coordination - Case Management Consult Case Management Consult-Home Health: Yes - Certification I have seen patient Rachna Ferreira on 07/19/18. My clinical findings support the need for the requested home health care services because: Limited mobility due to disease progression, Patient has SOB, Deconditioned with increased weakness, High risk of falls I certify that my clinical findings support that this patient is homebound because: Impaired cognitive ability/safety, Unsteady gait/balance
--- NOTE | 2018-07-19 11:30 | P.DS ---
Date of admission: 07/08/18 22:30 Primary care physician: Junior Quinonez MD Brief History from admission: Patient seen on medical rounds with the resident physician this morning. She continues to feel poorly, stating that her abdomen is diffusely tender. She states that her abdomen is mostly tender in the left upper quadrant in the right lower quadrant. She endorses continued uncontrolled diarrhea associated with this abdominal tenderness. Physical therapy did come by to try to sit patient up, however she was unable to do so due to dizziness and abdominal discomfort with diarrhea. She denies any fevers or chills, she denies any shortness of breath, she denies any palpitations, she denies any cough. In summary, this is an 83-year-old female with a past medical history of atrial fibrillation and hypothyroidism who presents to the emergency department following dizziness with a fall today at home. She was recently discharged from the hospital on 07/07 where she was hospitalized for atrial fibrillation with RVR. During that hospitalization, her metoprolol was increased to 50 mg p.o. twice daily and she was started on flecainide. She was set to have a cardioversion performed, however she converted to normal sinus rhythm after receiving lidocaine in preparation for the cardioversion. She was discharged home on metoprolol 50 mg p.o. twice daily and flecainide. She had chronically been on amiodarone and she continued this at home in conjunction with her flecainide. She took both the amiodarone and flecainide at home yesterday afternoon prior to the dizziness and her fall. When he back arrived, she was hypotensive and bradycardic, treated with IV fluid boluses and cardiac monitoring. In the emergency department, she had received IV fluid bolus with normal saline times 3 L and was placed in Trendelenburg position due to her hypotension which responded well. She was having abdominal pain, so a CT of the abdomen was performed which showed possible colitis and she was started on IV antibiotics with cefepime and Flagyl. She had worsening abdominal pain with progressive leukocytosis, so repeat CT scan was performed due to concern for ischemic colitis versus perforation, however this repeat CT was stable with no evidence of perforationshe was then transported to the [facility] for closer monitoring and treatment for severe sepsis. She has had several visits to the hospital recently, this is her third visit within the week. Her initial emergency room visit was on 07/02/18 where she was brought in for symptomatic bradycardia. She was evaluated by cardiology and her beta-ramesh was discontinued but she was continued on her Eliquis, amlodipine and amiodarone, and she was discharged home from the emergency room. She returned to the hospital in atrial fibrillation with RVR on 07/04/18 where her medications were changed, adding metoprolol back in but increasing it to 50 mg twice daily as well as beginning her on flecainide. She converted to normal sinus rhythm with lidocaine prior to attempted cardioversion, and she was discharged home on Eliquis, metoprolol, amlodipine, amiodarone, with flecainide added per cardiology. PMHx Afib HTN Hypothyroid PSurgHx History of hysterectomy Hx of radiofrequency ablation History of hip replacement FamHx Hx of CAD and diabetes SocHx Lives with Never smoker/tobacco, EtOH or other drugs DS: Diagnosis - Discharge Diagnosis (1) Acute hypoxemic respiratory failure Status: Acute (2) Mitral regurgitation Status: Acute (3) Colitis Status: Acute (4) Electrolyte abnormality Status: Acute (5) Afib Status: Acute (6) Hyponatremia Status: Acute (7) Anxiety Status: Acute (8) Hypothyroid Status: Acute DS: Medications - Discharge Medications Prescriptions: fluoxetine 10 mg PO DAILY #30 cap potassium chloride 20 meq PO DAILY #10 caplet DS: Summary Hospital Course: This patient is an 83-year-old female with a history of A. fib status post several ablations, hypothyroidism, hypertension, and anxiety who presented to the ED status post fall and head injury without loss of consciousness accompanied by hypotension, bradycardia, hypothermia and acute abdominal pain. On admission patient was found to be hypotensive with a blood pressure of 70/45 and received IV fluid bolus with normal saline x 3 L and was placed in Trendelenburg position due to her hypotension which responded well. She was having abdominal pain, so a CT of the abdomen was performed which showed possible colitis and she was started on IV antibiotics with cefepime and Flagyl. She had worsening abdominal pain with progressive leukocytosis, so repeat CT scan was performed due to concern for ischemic colitis versus perforation, however this repeat CT was stable with no evidence of perforation she was then transported to the [facility] for closer monitoring and treatment for severe sepsis. In the IMC patient received another 2 L boluses of crystalloid as well as 250 cc of 5% albumin. Her hypotension resolved but continued to have bradycardia ranging in the 40s-60s. Cardiology was consulted who continued flecainide, held her metoprolol, and ordered echocardiogram that showed moderate to severe mitral regurgitation and bilateral atelactasis. Patient had no leukocytosis on admission but over the course of her hospitalization her white count increased to 24.9 before slowly trending downwards. On admission her lactic acid was 1.4 as well as had an elevated CRP of 2.44. Patient was started on IV Flagyl and after further evaluation cefepime was added to her antibiotic regimen. Patient was found to be C. difficile negative. Due to patient's presumed colitis seen on imaging as well as abdominal pain, GI was consulted and an endoscopy and colonoscopy were planned. In preparation for procedure patient received vigorous potassium and phosphorus supplementation as her electrolytes were difficult to normalize. Patient was eventually taken to the GI suite on 07/13 and a endoscopy and colonoscopy were performed that showed no abnormalities on egd. Colonsocopy showed large internal hemorrhoids and severe diverticulosis. After procedure, patient went into acute respiratory failure 2/2 to flash pulmonary edema. Chest x-ray showed pulmonary edema with bilateral hilar congestion and prominent pulmonary veins. Her BNP at the time was elevated at 687. Patient underwent diuresis to improve symptoms, placed on nonrebreather requiring 15 L, and monitored on telemetry. Patient also placed back on IMC. A repeat echocardiogram on 07/14 showed worsening of ejection fraction and pulmonary hypertension, along w/left sided pleural effusion. Tricuspid regurgitation moderate to anderson medication re. Flash pulmonary edema was likely secondary to tricuspid regurgitation. Patient was diuresed aggressively as well as covered for HCAP. Over the course of her hospitalizations blood cultures continued to show no growth. Patient's respiratory status continued to improve and was slowly weaned down on nasal cannula. On 07/17 patient was transferred back to the medicine floor. On 07/18 her Flagyl was discontinued on day #10 of treatment. Patient was discharged on July 19 with the following regimen: Fluoxetine, alprazolam, apixaban, flecainide, levothyroxine, potassium chloride, and estradiol as well as follow-up with GI for colonoscopy within 1 year. Imaging studies on admission as below: - CT abdomen/pelvis and CT thoracic aorta was ordered that showed evidence of colitis most notably in transverse colon and moderate-severe diverticulosis in sigmoid colon w/o perforation; no AAA. -Thoracic aorta CT: No evidence for aortic aneurysm or dissection, diffuse colonic wall thickening most notably in the transverse colon. Findings are most concerning for colitis, likely infectious or inflammatory in etiology. The mesenteric arteries are patent which makes ischemic etiology unlikely. Moderate severe sigmoid diverticulosis. -Head CT: No acute intracranial abnormality. Atrophy and chronic white matter changes -Abdominal CT without contrast: Unremarkable study without evidence of bowel obstruction or free fluid or free air of any significance. Gallbladder is well distended. Kidneys are functioning. Degenerative arthritis lower lumbar spine. Bibasilar consolidation, likely atelectasis. Sigmoid diverticulosis. - Time Spent with Patient Total time spent providing and/or coordinating discharge services: Greater than 30 minutes - Quality: VTE Deep Vein Thrombosis/Pulmonary Embolism Present on Admission: No Exam Vital signs: Vital Signs 07/18/18 12:00 07/18/18 16:00 07/18/18 19:20 Temperature 98.0 F 97.8 F 97.9 F Pulse Rate 65 76 73 Respiratory Rate 18 16 17 Blood Pressure 113/58 L 109/53 L 122/60 Pulse Oximetry 95 95 98 07/18/18 19:48 07/18/18 23:40 07/19/18 04:55 Temperature 98.5 F 97.8 F Pulse Rate 71 74 73 Respiratory Rate 15 16 16 Blood Pressure 121/59 L 124/61 Pulse Oximetry 94 L 95 07/19/18 08:05 07/19/18 08:33 Temperature 97.7 F Pulse Rate 78 70 Respiratory Rate 16 18 Blood Pressure 117/56 L Pulse Oximetry 95 Intake & Output 07/18/18 07/19/18 07/19/18 18:59 06:59 18:59 Intake Total 820 / 820 750 / 750 Output Total 1500 / 1500 903 / 903 Balance -680 / -680 -153 / -153 Weight 67.8 kg Intake: IV 100 / 100 Flagyl 500 MG Inj 100 ML @ 100 100 / 100 mls/hr IV.SIG Q8H ERIK Rx#: [id number] Oral 720 / 720 750 / 750 Output: Urine 1500 / 1500 Stool 3 / 3 Urine Amount (Catheter) 900 / 900 Indwelling Urethral Catheter 900 / 900 Other: Date of Last Bowel Movement 12/30/18 01/01/19 01/01/19 # Bowel Movements 1 1 Narrative: GENERAL: Elderly appearing female, lying in bed on 2 L nasal cannula oxygen SKIN: Warm and dry. Multiple ecchymoses over bilateral shins and arms. HEAD: Normocephalic. CARDIOVASCULAR: regular rhythm and rate. 3/6 holosystolic murmur at the apex RESPIRATORY: No bilateral crackles or rhonchi heard. Inspiratory airflow improved from yesterday. GASTROINTESTINAL: Abdomen soft and nontender in any quadrant. Normal bowel sounds appreciated. Nondistended. MUSCULOSKELETAL: No cyanosis. Minimal edema noted over dorsum of feet bilaterally. Moves all extremities spontaneously. Results Procedures completed during hospitalization: Endoscopy, colonoscopy, placement of central line. Labs on day of discharge: Labs from last 24 hours 07/19/18 07/19/18 06:57 06:27 WBC 13.8 H RBC 3.40 L Hgb 11.0 L Hct 31.9 L MCV 93.9 MCH 32.4 MCHC 34.5 RDW 14.8 Plt Count 301 MPV 7.8 Prelim Diff (Auto) Slide review pending Neut % (Auto) 77.9 H Lymph % (Auto) 9.5 [place] % (Auto) 9.7 H Eos % (Auto) 2.6 Baso % (Auto) 0.3 Neut # (Auto) 10.7 H Lymph # (Auto) 1.3 [place] # (Auto) 1.3 H Eos # (Auto) 0.4 Baso # (Auto) 0.0 WBC Differential Manual diff final Seg Neuts % (Manual) 78 H Band Neuts % (Manual) 4 Lymphocytes % (Manual) 6 L Monocytes % (Manual) 10 H Eosinophils % (Manual) 2 Abs Neuts (Manual) 11.3 H Differential Comment . Toxic Granulation 1+ H Platelet Estimate Normal Platelet Morphology Normal Sodium 135 L Potassium 3.3 L D Chloride 99 Carbon Dioxide 27.6 Anion Gap 8 BUN 20 H Creatinine 1.09 H Estimated GFR 48 L Random Glucose 140 H Calcium 8.0 L - Impressions ITS Impressions Thoracic Aorta CT 07/08/18 20:02 CONCLUSION: 1. No evidence for aortic aneurysm or dissection as questioned. 2. Diffuse colonic wall thickening most notably in the transverse colon. Findings are most concerning for colitis, likely infectious or inflammatory in etiology. The mesenteric arteries are patent which make ischemic etiology unlikely. 3. Moderate severe sigmoid diverticulosis. 4. Coronary artery calcifications. 5. Additional ancillary findings, as above. Head CT 07/08/18 20:05 CONCLUSION: 1. No acute intracranial abnormality. 2. Atrophy and chronic white matter changes. . Abdomen/Pelvis CT 07/09/18 00:44 CONCLUSION: 1. Unremarkable study without evidence of bowel obstruction or free fluid or free air of any significance. Gallbladder is well distended. Kidneys are functioning. Degenerative arthritis lower lumbar spine. Bibasilar consolidation likely atelectasis 2. Sigmoid diverticulosis Chest CTA 07/15/18 00:00 CONCLUSION: 1. This study is negative for pulmonary embolism. 2. Moderately-sized bilateral pleural effusions. 3. Ground-glass infiltrates are noted bilaterally consistent with mild pulmonary vascular congestion or possible pneumonia. Clinical correlation is recommended. 4. Bibasilar compressive atelectasis. 5. Minimally prominent pretracheal, subcarinal and AP window mediastinal as well as right hilar lymph nodes which are nonspecific. 6. Cardiomegaly and coronary artery calcifications. 7. Small hiatal hernia. Chest X-Ray 07/17/18 04:00 CONCLUSION: Substantially decreased pleural effusions and basilar consolidation, now small/ mild. Discharge Plan - Discharge Disposition Patient Disposition: /Home Health Service - Discharge Condition Condition: Stable - Discharge Order Discharge Orders: Discharge Order (Routine); Ordered 07/19/18 Ordered By: Steve Morales R1 ED Use Only Admit Order (Routine); Ordered 07/08/18 Ordered By: Jayne Mullins - Discharge Details Discharge Comment: Patient to follow-up with computer operations specialist within 1 week of discharge. Patient to follow-up with primary care doctor within 1-2 weeks of discharge. Patient will need to have repeat colonoscopy within 1 year. - Physicians Team Primary Care Provider: Junior Quinonez Attending Provider: Juan José Ford Other Providers: Cameron Frank DO ; Sonny Ariza MD ; Jaquan Bashir MD ; Louann Marie MD, R2 ; Bull Cid MD
--- NOTE | 2018-07-19 13:20 | P.PNCA ---
Subjective Interval history: Feels better today Up and walking with PT, although not very far Medications and Allergies Active Medications: Active Medications Acetaminophen (Tylenol) 650 mg PO Q4H PRN PRN Reason: Temp > 100.4 Albuterol (Albuterol Neb (Prn)) 2.5 mg NEB ONCE PRN PRN Reason: SHORTNESS OF BREATH Last Admin: 07/12/18 16:10 Dose: 2.5 mg Albuterol (Duoneb Neb ([facility])) 1 ampul NEB Q12HR NEB [facility] Last Admin: 07/19/18 08:31 Dose: 1 ampul Alprazolam (Xanax) 0.25 mg PO Q12H PRN PRN Reason: ANXIETY Last Admin: 07/19/18 00:29 Dose: 0.25 mg Apixaban (Eliquis) 5 mg PO BID [facility] Last Admin: 07/19/18 09:02 Dose: 5 mg Flecainide Acetate (Tambocor) 100 mg PO BID [facility] Last Admin: 07/19/18 09:02 Dose: 100 mg Fluoxetine HCl (Prozac) 10 mg PO DAILY [facility] Last Admin: 07/19/18 09:02 Dose: 10 mg Furosemide (Lasix Inj) 60 mg IV.PUSH Q12H [facility] Last Admin: 07/19/18 00:30 Dose: 60 mg Hydromorphone HCl (Dilaudid Pf Inj) 0.5 mg IV.PUSH ONCE PRN PRN Reason: ABDOMINAL PAIN Last Admin: 07/09/18 00:54 Dose: 0.5 mg Lactated Ringer's (Lr 1000 Ml Inj) 1,000 mls @ 30 mls/hr IV.SIG .Q24H [facility] Last Admin: 07/15/18 07:27 Dose: Not Given Sodium Chloride (Ns Inj) 500 mls @ 30 mls/hr IV.SIG .Q10H [facility] Last Admin: 07/15/18 07:28 Dose: Not Given Levothyroxine Sodium (Synthroid) 50 mcg PO DAILY@0600 [facility] Last Admin: 07/19/18 05:46 Dose: 50 mcg Ondansetron HCl (Zofran Inj) 4 mg IV.PUSH Q6H PRN PRN Reason: NAUSEA OR VOMITING Last Admin: 07/12/18 21:03 Dose: 4 mg Patch Removal (Remove Old Patch) 1 each T-DERMAL Q7D [facility] Last Admin: 07/12/18 17:38 Dose: 1 each Potassium Chloride (Kcl) 20 meq PO TID [facility] Last Admin: 07/19/18 09:02 Dose: 20 meq Sodium Chloride (Ns Flush) 2 ml IV.FLUSH BID [facility] Last Admin: 07/19/18 09:03 Dose: 2 ml Sodium Chloride (Ns Flush) 2 ml IV.FLUSH PRN PRN PRN Reason: FLUSH AFTER USING IV ACCESS Trazodone HCl (Desyrel) 50 mg PO HS [facility] Last Admin: 07/18/18 21:10 Dose: 50 mg Allergies Allergy/AdvReac Type Severity Reaction Status Date / Time cefaclor Allergy Severe RASH Verified 07/04/18 09:33 paroxetine Allergy Severe Rash Verified 07/04/18 09:33 Sulfa (Sulfonamide Allergy Severe RASH Verified 07/04/18 09:33 Antibiotics) ciprofloxacin Allergy Unknown GI UPSET Verified 07/04/18 09:33 clonidine Allergy Unknown SKIN Verified 07/04/18 09:33 IRRITATION latex bandages AdvReac Mild SKIN Uncoded 07/02/18 10:47 REDNESS, RASH Home Medications Medication Instructions Recorded Confirmed Type alprazolam 0.25 mg PO BID PRN 05/18/18 07/08/18 History amiodarone 200 mg PO DAILY 05/18/18 07/08/18 History apixaban [Eliquis] 5 mg PO BID 05/18/18 07/08/18 History estradiol 0.5 mg PO WEEKLY 05/18/18 07/08/18 History levothyroxine 50 mcg PO DAILY 05/18/18 07/08/18 History potassium chloride 20 meq PO DAILY 05/18/18 07/08/18 History Physical Exam Vital signs: Vital Signs 07/18/18 16:00 07/18/18 19:20 07/18/18 19:48 Temperature 97.8 F 97.9 F Pulse Rate 76 73 71 Respiratory Rate 16 17 15 Blood Pressure 109/53 L 122/60 Pulse Oximetry 95 98 07/18/18 23:40 07/19/18 04:55 07/19/18 08:05 Temperature 98.5 F 97.8 F 97.7 F Pulse Rate 74 73 78 Respiratory Rate 16 16 16 Blood Pressure 121/59 L 124/61 117/56 L Pulse Oximetry 94 L 95 95 07/19/18 08:33 Temperature Pulse Rate 70 Respiratory Rate 18 Blood Pressure Pulse Oximetry Intake & Output 07/18/18 07/19/18 07/19/18 18:59 06:59 18:59 Intake Total 820 / 820 750 / 750 Output Total 1500 / 1500 903 / 903 Balance -680 / -680 -153 / -153 Weight 67.8 kg Intake: IV 100 / 100 Flagyl 500 MG Inj 100 ML @ 100 100 / 100 mls/hr IV.SIG Q8H ERIK Rx#: [id number] Oral 720 / 720 750 / 750 Output: Urine 1500 / 1500 Stool 3 / 3 Urine Amount (Catheter) 900 / 900 Indwelling Urethral Catheter 900 / 900 Other: Date of Last Bowel Movement 07/17/18 07/19/18 07/19/18 # Bowel Movements 1 1 Narrative: GENERAL: Elderly appearing female, lying in bed on 2 L nasal cannula oxygen SKIN: Warm and dry. Multiple ecchymoses over bilateral shins and arms. HEAD: Normocephalic. CARDIOVASCULAR: regular rhythm and rate. 3/6 holosystolic murmur at the apex RESPIRATORY: No bilateral crackles or rhonchi heard. Inspiratory airflow good. GASTROINTESTINAL: Abdomen soft and nontender in any quadrant. Normal bowel sounds appreciated. Nondistended. MUSCULOSKELETAL: No cyanosis. Minimal edema noted over dorsum of feet bilaterally. Moves all extremities spontaneously. - Urinary Catheter Management Indwelling Urethral Catheter Cath placed during this visit: yes, but has since been removed by the nurse Reason for continuing: Decision to DC catheter Insertion date: 07/13/18 Insertion time: 14:30 Removal date: 07/19/18 Removal time: 05:50 Results 07/19/18 06:57 07/19/18 06:27 CBC 07/19/18 Range/Units 06:57 WBC 13.8 H (4.0-11.0) th/mm3 RBC 3.40 L (4.00-5.30) mil/mm3 Hgb 11.0 L (11.6-15.3) gm/dL Hct 31.9 L (35.0-46.0) % Plt Count 301 (150-450) th/mm3 Neut # (Auto) 10.7 H (1.8-7.7) th/mm3 Lymph # (Auto) 1.3 (1.0-4.8) th/mm3 [place] # (Auto) 1.3 H (0.0-0.9) th/mm3 Eos # (Auto) 0.4 (0.0-0.4) th/mm3 Baso # (Auto) 0.0 (0.0-0.2) th/mm3 Comprehensive Metabolic Panel 07/18/18 07/19/18 Range/Units 04:35 06:27 Sodium 133 L 135 L (136-145) meq/L Potassium 4.2 3.3 L D (3.5-5.1) meq/L Chloride 100 99 (98-107) meq/L Carbon Dioxide 25.6 27.6 (21.0-32.0) meq/L BUN 20 H 20 H (7-18) mg/dL Creatinine 0.89 1.09 H (0.50-1.00) mg/dL Calcium 8.2 L 8.0 L (8.5-10.1) mg/dL Intake and Output 07/18/18 07/19/18 07/19/18 22:59 06:59 14:59 Intake Total 720 / 720 750 / 750 Output Total 1500 / 1500 903 / 903 Balance -780 / -780 -153 / -153 Intake: Oral 720 / 720 750 / 750 Output: Urine 1500 / 1500 Stool 3 / 3 Urine Amount (Catheter) 900 / 900 Indwelling Urethral Catheter 900 / 900 Other: Date of Last Bowel Movement 07/18/18 07/19/18 07/19/18 # Bowel Movements 1 1 Weight 67.8 kg Assessment and Plan - Assessment (1) Bradycardia Code(s): R00.1 - Bradycardia, unspecified Status: Acute (2) Colitis Code(s): K52.9 - Noninfective gastroenteritis and colitis, unspecified Status : Acute (3) Afib Code(s): I48.91 - Unspecified atrial fibrillation Status: Acute (4) Hypertension Code(s): I10 - Essential (primary) hypertension Status: Acute (5) Hypothyroid Code(s): E03.9 - Hypothyroidism, unspecified Status: Acute (6) Anxiety Code(s): F41.9 - Anxiety disorder, unspecified Status: Acute (7) SKY (acute kidney injury) Code(s): N17.9 - Acute kidney failure, unspecified Status: Acute (8) Sepsis associated hypotension Code(s): A41.9 - Sepsis, unspecified organism; I95.9 - Hypotension, unspecified Status: Resolved - Plan 1. Abdominal pain, which appears to be due to colitis. Clinically better 2. Sepsis. Resolved, most likely secondary to colitis 3. Hypotension responsive to IV fluids. Resolved 4. Acute bradycardia secondary to medications. Amiodarone stopped Metoprolol held HR's normal and patient back in NSR at the present time. 5. Difficult to control atrial fibrillation with history of atrial fibrillation ablation x 2 and atrial flutter ablation x 1. Appears to be back in NSR. Continue apixaban, flecainide. 6. Previous hypothermia. 7. Acute kidney injury. 8. Flash pulmonary edema EKG with minimal changes, similar to previous Most likely due to known moderate to severe MR Troponin levels minimally elevated, most likely type 2 Repeat echo with no significant change Overall feel this is not due to coronary artery disease, but most likely her mitral regurgitation Bilateral pleural effusion much improved on CXR Will need work up for mitral valve regurgitation She would prefer to get better and do electively Will have her follow up with Dr. Rincon and when ready will plan for cath and possible RACH 9. Discussed going to SNF She had a horrible experience, but wants to do home PT From my standpoint appears relatively stable Discussed with her and her that SNF would be the best option, but they decline No further cardiovascular work up at this time
== END 2018-07-19 15:05 | disposition home health service (06) | DRG 871 ==
LOC: NEPE 19:51 → NEDA 19:51 → NEPHCDU 23:15 → HIMC 07-09 01:55 → N04 07-11 17:57 → N03 07-13 15:00 → N06 07-17 18:55
PROVIDERS: ADMIT Family Medicine; ATTEND Family Medicine
PROC: PANENDO (2018-07-13 11:40)
PROC: COLONOS (2018-07-13 11:40)
CPT/HCPCS: 36600; 70450; 71010; 71045; 71275; 74175; 74176; 76937; 80048; 80053; 82040; 82272; 82533; 82550; 82805; 82948; 82962; 83520; 83605; 83690; 83735; 83880; 84100; 84132; 84145; 84439; 84443; 84481; 84484; 85025; 85027; 85610; 85651; 85652; 85730; 86140; 86850; 86900; 86901; 87040; 87493; 87641; 90761; 90765; 90767; 90775; 93005; 93308; 94002; 94003; 94640; 94656; 94657; 94664; 94665; 96361; 96365; 96367; 96375; 97110; 97116; 97163; 97164; 99291; G0378; J0692; J0696; J1120; J1170; J1940; J2405; J2704; J2765; J3010; J3475; J3480; J7030; J7050; P9045; Q9967

== ENCOUNTER 2018-09-13 17:04 | Inpatient (IN) ==
--- NOTE | 2018-09-13 18:39 | XR ---
EXAM DATE: 09/13/2018 6:35 PM EST AGE/SEX: 83 years / Female INDICATIONS: Short of breath. CLINICAL DATA: This is the patient's initial encounter. Patient reports that signs and symptoms have been present for 1 month and indicates a pain score of 0/10. MEDICAL/SURGICAL HISTORY: . A-fib. . Several heart ablations. COMPARISON: [facility] [place], [place], CHEST 1V SINGLE AP, 07/17/2018. . FINDINGS: Minimal airspace disease at the left lung base. The cardiomediastinal contours are unremarkable. Os seous structures are intact. CONCLUSION: 1. Minimal left lung base airspace disease likely reflecting atelectasis. Electronically signed by: Nando Bass MD Board Certified Radiologist 09/13/2018 6:38 PM EST
--- NOTE | 2018-09-13 19:08 | ED ---
HPI General Chief Complaint: Syncope Stated Complaint: blood pressure Time Seen by Provider: 09/13/18 17:15 Source: patient and family Mode of arrival: ambulatory Limitations: no limitations History of Present Illness HPI narrative: Patient is an 83-year-old female presenting to the emergency department for evaluation of increased falls, weakness, decreased appetite. Patient reports that she fears tired all the time, she states when she thinks of food she becomes nauseated. Patient states she comes short of breath when she exerts herself. is at bedside and states that she has home health for physical therapy and occupational therapy whenever her vital signs are assessed her heart rate has been in the 40s. reports that patient has fallen several times in the last 2 weeks. 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 He does report that there was talk of placing a pacemaker in the past. Past medical history significant for atrial fibrillation status post ablation, anxiety, depression, hypertension, patient is on Eliquis. reports several admissions in June and into July for a cardioversion and then a fall with a head injury secondary to patient taking amiodarone and flecainide at the same time. Patient does report feeling anxious which may be contributing to her lack of appetite and nausea. Patient denies any chest pain, abdominal pain , fever, chills, vomiting, headache. Related Data Home Medications Medication Instructions Recorded Confirmed alprazolam 0.25 mg PO DAILY 05/18/18 09/13/18 apixaban [Eliquis] 5 mg PO BID 05/18/18 09/13/18 levothyroxine 50 mcg PO DAILY 05/18/18 09/13/18 multivitamin [One Daily Essential] 1 tab PO QPM 09/13/18 09/13/18 ondansetron HCl [Zofran] 8 mg PO BID PRN 09/13/18 09/13/18 sennosides-docusate sodium [Senna 2 tab PO QPM 09/13/18 09/13/18 Plus] Previous Rx's Medication Instructions Recorded flecainide 100 mg PO BID #60 tab 07/07/18 fluoxetine 10 mg PO DAILY #30 cap 07/19/18 potassium chloride 20 meq PO DAILY #10 caplet 07/19/18 Allergies Allergy/AdvReac Type Severity Reaction Status Date / Time cefaclor Allergy Severe RASH Verified 07/04/18 09:33 paroxetine Allergy Severe Rash Verified 07/04/18 09:33 Sulfa (Sulfonamide Allergy Severe RASH Verified 07/04/18 09:33 Antibiotics) ciprofloxacin Allergy Unknown GI UPSET Verified 07/04/18 09:33 clonidine Allergy Unknown SKIN Verified 07/04/18 09:33 IRRITATION latex bandages AdvReac Mild SKIN Uncoded 07/02/18 10:47 REDNESS, RASH Review of Systems ROS: all other systems reviewed are negative [facility] Medical History Medical History Afib (Acute) HTN (hypertension) (Acute) History of hysterectomy (Acute) Hypothyroid (Acute) Surgical History Surgical History History of hip replacement (Acute) History of radiofrequency ablation procedure for cardiac arrhythmia (Acute) Family History Family History Other CAD (coronary artery disease) Diabetes Social History Social History Substance History: No History of Abuse Second Hand Smoke Exposure: No Smoking Status: Never smoker Tobacco Type: Cigarettes How Often Do You Have a Drink Containing Alcohol: Never Recent Travel in [facility] within the Last 8 Weeks: No Recent Out of Country Travel within the Last 8 Weeks: No Immunization History Tetanus Immunization: >5 Years Exam Narrative Exam Narrative: GENERAL: Thin, well-developed, alert elderly female. Presenting in no acute distress. SKIN: Focused skin assessment warm/dry. HEAD: Atraumatic. Normocephalic. EYES: Pupils equal and round. No scleral icterus. No injection or drainage. ENT: No nasal bleeding or discharge. Mucous membranes pink and moist. NECK: Trachea midline. No JVD. CARDIOVASCULAR: Bradycardic. No murmur appreciated. RESPIRATORY: No accessory muscle use. Clear to auscultation. Breath sounds equal bilaterally. GASTROINTESTINAL: Abdomen soft, non-tender, nondistended. Hepatic and splenic margins not palpable. MUSCULOSKELETAL: No obvious deformities. No clubbing. No cyanosis. No edema. NEUROLOGICAL: Awake and alert. No obvious cranial nerve deficits. Motor grossly within normal limits. Normal speech. PSYCHIATRIC: Appropriate mood and affect; insight and judgment normal. Course Initial Documented Vital Signs Temperature 97.4 F L 09/13/18 17:11 Pulse Rate 61 09/13/18 17:11 Respiratory Rate 18 09/13/18 17:11 Blood Pressure 219/93 H 09/13/18 17:11 Pulse Oximetry 99 09/13/18 17:11 Last Documented Vital Signs Temperature 97.4 F L 09/13/18 17:11 Pulse Rate 50 L 09/13/18 20:54 Respiratory Rate 18 09/13/18 20:54 Blood Pressure 194/87 H 09/13/18 20:54 Pulse Oximetry 96 09/13/18 20:54 Medical Decision Making MDM Narrative Medical decision making narrative: Patient presented with her for evaluation of increased falls, weakness, fatigue, shortness of breath, bradycardia. On arrival patient is bradycardic with a heart rate in the upper 40s. Initial EKG was reviewed by my attending physician. Patient is hypertensive, her states that she was taken off of her blood pressure medications. Labs and imaging ordered and pending. CBC with no acute findings, chemistry with a sodium of 128, creatinine 1.37 Cardiac enzymes negative x1 set Chest x-ray shows left lower lobe atelectasis Patient continued to be hypertensive, she was given a dose of hydralazine IV x1. Patient will be admitted for symptomatic bradycardia. Discussed with Dr. Davison who accepted admission, orders placed. Patient and advised on clinical findings and plan of care and are agreeable. Medical Screen Exam Complete: Yes Emergency Medical Condition: Yes Differential Diagnosis Differential Diagnosis: Cardiac arrhythmia versus metabolic abnormality versus medication side effect versus anxiety versus deconditioning Medical Records Medical records reviewed: Yes I reviewed the patient's medical records. Lab Data Lab results reviewed: Yes I reviewed the patient's lab results. Result diagrams: 09/13/18 18:45 09/13/18 18:45 Lab Results 09/13/18 09/13/18 09/13/18 Range/Units 18:45 18:45 18:45 WBC 10.5 (4.0-11.0) th/mm3 RBC 4.73 (4.00-5.30) mil/mm3 Hgb 15.0 (11.6-15.3) gm/dL Hct 44.7 (35.0-46.0) % MCV 94.5 (80.0-100.0) fL MCH 31.6 (27.0-34.0) pg MCHC 33.5 (32.0-36.0) % RDW 14.3 (11.6-17.2) % Plt Count 309 (150-450) th/mm3 MPV 8.7 (7.0-11.0) fL Prelim Diff (Auto) Slide review pending Neut % (Auto) 68.6 (16.0-70.0) % Lymph % (Auto) 18.3 (9.0-44.0) % [place] % (Auto) 9.3 H (0.0-8.0) % Eos % (Auto) 3.4 (0.0-4.0) % Baso % (Auto) 0.4 (0.0-2.0) % Neut # (Auto) 7.2 (1.8-7.7) th/mm3 Lymph # (Auto) 1.9 (1.0-4.8) th/mm3 [place] # (Auto) 1.0 H (0.0-0.9) th/mm3 Eos # (Auto) 0.4 (0.0-0.4) th/mm3 Baso # (Auto) 0.0 (0.0-0.2) th/mm3 WBC Differential . Diff Scan Auto diff confirmed Differential Comment . PT 10.9 (9.8-11.6) sec INR 1.1 Ratio APTT 23.3 L (23.4-31.7) sec Sodium 128 L (136-145) meq/L Potassium 5.0 (3.5-5.1) meq/L Chloride 96 L (98-107) meq/L Carbon Dioxide 24.9 (21.0-32.0) meq/L Anion Gap 7 (5-15) meq/L BUN 12 (7-18) mg/dL Creatinine 1.37 H (0.50-1.00) mg/dL Estimated GFR 37 L (>89) mL/min Random Glucose 120 H (74-106) mg/dL Calcium 9.1 (8.5-10.1) mg/dL Magnesium 2.1 (1.5-2.5) mg/dL Total Bilirubin 0.7 (0.2-1.0) mg/dL AST 65 H (15-37) U/L ALT 37 (10-53) U/L Alkaline Phosphatase 122 H (45-117) U/L Troponin I Less than 0.02 L (0.02-0.05) ng/mL B-Natriuretic Peptide (0-100) pg/mL Total Protein 7.5 (6.4-8.2) g/dL Albumin 3.4 (3.4-5.0) g/dL TSH 5.720 H (0.358-3.740) uIU/mL Urine Color (Yellw/Straw) Urine Clarity (Clear) Urine pH (5.0-8.5) Ur Specific Kelly (1.002-1.035) Urine Protein (Neg-Trace) mg/dL Urine Glucose (UA) (Negative) mg/dL Urine Ketones (Negative) mg/dL Urine Occult Blood (Negative) Urine Nitrate (Negative) Urine Bilirubin (Negative) Urine Urobilinogen (Less than 2) mg/dL Ur Leukocyte Esterase (Negative) Urine RBC (0-3) /hpf Urine WBC (0-5) /hpf Ur Squamous Epith Cells (0-5) /hpf Urine Mucus (Occasional) /lpf Micro UA Comment Ur Microscopic Review Urine Culture Comments 09/13/18 09/13/18 Range/Units 18:45 19:45 WBC (4.0-11.0) th/mm3 RBC (4.00-5.30) mil/mm3 Hgb (11.6-15.3) gm/dL Hct (35.0-46.0) % MCV (80.0-100.0) fL MCH (27.0-34.0) pg MCHC (32.0-36.0) % RDW (11.6-17.2) % Plt Count (150-450) th/mm3 MPV (7.0-11.0) fL Prelim Diff (Auto) Neut % (Auto) (16.0-70.0) % Lymph % (Auto) (9.0-44.0) % [place] % (Auto) (0.0-8.0) % Eos % (Auto) (0.0-4.0) % Baso % (Auto) (0.0-2.0) % Neut # (Auto) (1.8-7.7) th/mm3 Lymph # (Auto) (1.0-4.8) th/mm3 [place] # (Auto) (0.0-0.9) th/mm3 Eos # (Auto) (0.0-0.4) th/mm3 Baso # (Auto) (0.0-0.2) th/mm3 WBC Differential Diff Scan Differential Comment PT (9.8-11.6) sec INR Ratio APTT (23.4-31.7) sec Sodium (136-145) meq/L Potassium (3.5-5.1) meq/L Chloride (98-107) meq/L Carbon Dioxide (21.0-32.0) meq/L Anion Gap (5-15) meq/L BUN (7-18) mg/dL Creatinine (0.50-1.00) mg/dL Estimated GFR (>89) mL/min Random Glucose (74-106) mg/dL Calcium (8.5-10.1) mg/dL Magnesium (1.5-2.5) mg/dL Total Bilirubin (0.2-1.0) mg/dL AST (15-37) U/L ALT (10-53) U/L Alkaline Phosphatase (45-117) U/L Troponin I (0.02-0.05) ng/mL B-Natriuretic Peptide 158 H (0-100) pg/mL Total Protein (6.4-8.2) g/dL Albumin (3.4-5.0) g/dL TSH (0.358-3.740) uIU/mL Urine Color Yellow (Yellw/Straw) Urine Clarity Hazy H (Clear) Urine pH 6.0 (5.0-8.5) Ur Specific Kelly 1.005 (1.002-1.035) Urine Protein Negative (Neg-Trace) mg/dL Urine Glucose (UA) Negative (Negative) mg/dL Urine Ketones Negative (Negative) mg/dL Urine Occult Blood Negative (Negative) Urine Nitrate Negative (Negative) Urine Bilirubin Negative (Negative) Urine Urobilinogen Less than 2 (Less than 2) mg/dL Ur Leukocyte Esterase Trace H (Negative) Urine RBC 1 (0-3) /hpf Urine WBC 3 (0-5) /hpf Ur Squamous Epith Cells 4 (0-5) /hpf Urine Mucus Few H (Occasional) /lpf Micro UA Comment Culture not ind Ur Microscopic Review Not Reportable Urine Culture Comments Culture not ind Imaging Data Radiologist's impression: Chest X-Ray 09/13/18 18:20 CONCLUSION: 1. Minimal left lung base airspace disease likely reflecting atelectasis. Discharge Plan Discharge Disposition Patient Disposition: ED Admit(ED Internal Use Only) Discharge Condition Condition: Stable Discharge Order Discharge Orders: ED Use Only Admit Order (Routine); Ordered 09/13/18 Ordered By: Sarahy Llanos Discharge Details Diagnosis: Symptomatic bradycardia, Frequent falls Physicians Team ED Provider: Jessica Walker ED Midlevel Provider: Sarahy Llanos Primary Care Provider: Junior Quinonez Rxs /Orders / Referrals /Forms Prescriptions: No Action alprazolam 0.25 mg Tablet 0.25 mg PO DAILY RF: 0 levothyroxine 50 mcg Tablet 50 mcg PO DAILY RF: 0 apixaban [Eliquis] 5 mg Tablet 5 mg PO BID RF: 0 multivitamin [One Daily Essential] Tablet 1 tab PO QPM RF: 0 sennosides-docusate sodium [Senna Plus] 8.6-50 mg Tablet 2 tab PO QPM RF: 0 ondansetron HCl [Zofran] 8 mg Tablet 8 mg PO BID PRN (Reason: Nausea) RF: 0 flecainide 100 mg Tablet 100 mg PO BID Qty: 60 RF: 2 fluoxetine 10 mg Capsule 10 mg PO DAILY Qty: 30 RF: 0 potassium chloride 20 mEq Tablet Extended Release 20 meq PO DAILY Qty: 10 RF: 0 Status ED Status: Admitted Patient
[2018-09-13 19:12] LABS: Activated Partial Thrombo Time 23.3 sec (23.4-31.7); Alanine Aminotransferase 37 U/L (10-53); INR 1.1 Ratio; Prothrombin Time 10.9 sec (9.8-11.6)
[2018-09-13 19:22] LABS: Alkaline Phosphatase 122 U/L (45-117); Baso % (Auto) 0.4 % (0.0-2.0); Eos # (Auto) 0.4 th/mm3 (0.0-0.4); Eos % (Auto) 3.4 % (0.0-4.0); Hematocrit 44.7 % (35.0-46.0); Lymph # (Auto) 1.9 th/mm3 (1.0-4.8); Lymph % (Auto) 18.3 % (9.0-44.0); Mean Corpuscular HGB Conc 33.5 % (32.0-36.0); Mean Corpuscular Hemoglobin 31.6 pg (27.0-34.0); Mean Corpuscular Volume 94.5 fL (80.0-100.0); Mean Platelet Volume 8.7 fL (7.0-11.0); Mono % (Auto) 9.3 % (0.0-8.0); Neut # (Auto) 7.2 th/mm3 (1.8-7.7); Neut % (Auto) 68.6 % (16.0-70.0); Platelet Count 309 th/mm3 (150-450); Red Blood Count 4.73 mil/mm3 (4.00-5.30); Red Cell Distribution Width 14.3 % (11.6-17.2); Total Protein 7.5 g/dL (6.4-8.2); White Blood Count 10.5 th/mm3 (4.0-11.0)
[2018-09-13 19:23] LABS: Albumin 3.4 g/dL (3.4-5.0); Anion Gap 7 meq/L (5-15); Blood Urea Nitrogen 12 mg/dL (7-18); Calcium 9.1 mg/dL (8.5-10.1); Carbon Dioxide 24.9 meq/L (21.0-32.0); Chloride 96 meq/L (98-107); Glomerular Filtration Rate 37 mL/min (>89); Glucose,Random 120 mg/dL (74-106); Sodium 128 meq/L (136-145)
[2018-09-13 19:25] LABS: Aspartate Aminotransferase 65 U/L (15-37); Magnesium 2.1 mg/dL (1.5-2.5)
[2018-09-13 20:14] LABS: Bilirubin,Urine Negative (Negative); Clarity,Urine Hazy (Clear); Color,Urine Yellow (Yellw/Straw); Glucose,Urine (UA) Negative (Negative); Leukocyte Esterase,Urine Trace (Negative); Mucus,Urine Few /lpf (Occasional); Nitrite,Urine Negative (Negative); Specific Gravity,Urine 1.005 (1.002-1.035); Squamous Epithelial Cell,Urine 4 /hpf (0-5)
[2018-09-13] MEDS ORDERED: hydrALAZINE HCl Inj 20 MG/ML Vial IV.PUSH ONE (21:01)
[2018-09-13] MEDS ORDERED: Acetaminophen 325 MG Tablet PO PRN (21:54)
[2018-09-13] MEDS ORDERED: Bisacodyl 10 MG Supp RECTAL PRN (21:54)
--- NOTE | 2018-09-14 02:01 | P.HPIM ---
History of Present Illness Primary Care Physician: Junior Quinonez MD History of Present Illness: 83 y/o female with a history of Afib on Eliquis, anxiety and hypothyroid presented to the ER with complaints of feeling tired for 6 weeks. She states she has fallen 3-4 times over the last few weeks, and has been having to use a cane more frequently. She states she has had no appetite and lost 23 pounds since June. She states she just feels weak. Denies any chest pain, heart palpitation, nausea, vomiting, fever or chills. Upon examination patients HR was 76. Inpatient Certification Inpatient Certification: I certify that the inpatient services were ordered in accordance with Medicare regulations governing the order. This includes certification that hospital inpatient services are reasonable and necessary and in the case of services not specified as inpatient-only under 42 CFR 419.22(n), that they are appropriately provided as inpatient services in accordance to with the 2-midnight benchmark under 43 CFR 412.3(e) Review of Systems Review of Systems: all other systems reviewed are negative [facility] Medical History Medical History Afib (Acute) HTN (hypertension) (Acute) History of hysterectomy (Acute) Hypothyroid (Acute) Surgical History Surgical History History of hip replacement (Acute) History of radiofrequency ablation procedure for cardiac arrhythmia (Acute) Social History Social History Substance History: No History of Abuse Second Hand Smoke Exposure: No Smoking Status: Never smoker Tobacco Type: Cigarettes How Often Do You Have a Drink Containing Alcohol: Never Recent Travel in [facility] within the Last 8 Weeks: No Recent Out of Country Travel within the Last 8 Weeks: No Immunization History Tetanus Immunization: >5 Years Medications and Allergies Allergies Allergy/AdvReac Type Severity Reaction Status Date / Time cefaclor Allergy Severe RASH Verified 07/04/18 09:33 paroxetine Allergy Severe Rash Verified 07/04/18 09:33 Sulfa (Sulfonamide Allergy Severe RASH Verified 07/04/18 09:33 Antibiotics) ciprofloxacin Allergy Unknown GI UPSET Verified 07/04/18 09:33 clonidine Allergy Unknown SKIN Verified 07/04/18 09:33 IRRITATION latex bandages AdvReac Mild SKIN Uncoded 07/02/18 10:47 REDNESS, RASH Home Medications Medication Instructions Recorded Confirmed Type alprazolam 0.25 mg PO DAILY 05/18/18 09/13/18 History apixaban [Eliquis] 5 mg PO BID 05/18/18 09/13/18 History levothyroxine 50 mcg PO DAILY 05/18/18 09/13/18 History multivitamin [One Daily Essential] 1 tab PO QPM 09/13/18 09/13/18 History ondansetron HCl [Zofran] 8 mg PO BID PRN 09/13/18 09/13/18 History sennosides-docusate sodium [Senna 2 tab PO QPM 09/13/18 09/13/18 History Plus] Active Medications: Active Medications Acetaminophen (Tylenol) 650 mg PO Q4H PRN PRN Reason: Temp > 100.4 Al Hydroxide/Mg Hydroxide (Milk Of Magnesia Liq) 30 ml PO Q12H PRN PRN Reason: Mild Constipation Bisacodyl (Dulcolax Supp) 10 mg RECTAL DAILY PRN PRN Reason: SEVERE CONSITIPATION Flecainide Acetate (Tambocor) 100 mg PO BID ERIK Sodium Chloride (Ns Inj) 1,000 mls @ 35 mls/hr IV.CONT .Q24H ERIK Lactulose (Lactulose Liq) 30 ml PO DAILY PRN PRN Reason: SEVERE CONSITIPATION Levothyroxine Sodium (Synthroid) 50 mcg PO DAILY@0700 ERIK Ondansetron HCl (Zofran Inj) 4 mg IV.PUSH Q6H PRN PRN Reason: NAUSEA OR VOMITING Sennosides (Senokot) 17.2 mg PO Q12H PRN PRN Reason: Moderate Constipation Sodium Chloride (Ns Flush) 2 ml IV.FLUSH BID ERIK Sodium Chloride (Ns Flush) 2 ml IV.FLUSH PRN PRN PRN Reason: FLUSH AFTER USING IV ACCESS Physical Exam Vital signs: Vital Signs 09/13/18 17:11 09/13/18 18:52 09/13/18 20:54 Temperature 97.4 F L Pulse Rate 61 46 L 50 L Respiratory Rate 18 20 18 Blood Pressure 219/93 H 196/84 H 194/87 H Pulse Oximetry 99 97 96 09/13/18 21:35 09/13/18 23:30 09/14/18 00:00 Temperature 97.7 F Pulse Rate 53 L 70 55 L Respiratory Rate 18 18 12 Blood Pressure 162/69 H 139/64 188/80 H Pulse Oximetry 98 98 97 Intake & Output 09/13/18 09/13/18 09/14/18 06:59 18:59 06:59 Weight 57.606 kg Narrative: GENERAL: well nourished in no distress SKIN: Warm and dry. HEAD: Normocephalic. EYES: No scleral icterus. No injection or drainage. NECK: Supple, trachea midline. No JVD or lymphadenopathy. CARDIOVASCULAR: Regular rate and rhythm without murmurs, gallops, or rubs. RESPIRATORY: Breath sounds equal bilaterally. No accessory muscle use. GASTROINTESTINAL: Abdomen soft, non-tender, nondistended. MUSCULOSKELETAL: No cyanosis, or edema. Results Labs CBC & Chem 7: 09/13/18 18:45 09/13/18 18:45 Imaging Impressions Chest X-Ray 09/13/18 18:20 CONCLUSION: 1. Minimal left lung base airspace disease likely reflecting atelectasis. Caprini VTE Risk Assessment Caprini VTE Risk Assessment: Moderate/High Risk (score >= 2) Caprini Risk Assessment Model: Point Value = 1 Point Value = 2 Point Value = 3 Point Value = 5 Age 41-60 Minor surgery BMI > 25 kg/m2 Swollen legs Varicose veins or History of unexplained or recurrent spontaneous Oral contraceptives or hormone replacement Sepsis (< 1 month) Serious lung disease, including pneumonia (< 1 month) Abnormal pulmonary function Acute myocardial infarction Congestive heart failure (< 1 month) History of inflammatory bowel disease Medical patient at bed rest Age 61-74 Arthroscopic surgery Major open surgery (> 45 min) Laparoscopic surgery (> 45 min) Malignancy Confined to bed (> 72 hours) Immobilizing plaster cast Central venous access Age >= 75 History of VTE Family history of VTE Factor V Leiden Prothrombin [id number] Lupus anticoagulant Anticardiolipin antibodies Elevated serum homocysteine Heparin-induced thrombocytopenia Other congenital or acquired thrombophilia Stroke (< 1 month) Elective arthroplasty Hip, pelvis, or leg fracture Acute spinal cord injury (< 1 month) Prophylaxis Regimen: Total Risk Factor Score Risk Level Prophylaxis Regimen 0-1 Low Early ambulation 2 Moderate Order ONE of the following: *Sequential Compression Device (SCD) *Heparin 5000 units SQ BID 3-4 Higher Order ONE of the following medications: *Heparin 5000 units SQ TID *Enoxaparin/Lovenox 40 mg SQ daily (WT < 150 kg, CrCl > 30 mL/min) *Enoxaparin/Lovenox 30 mg SQ daily (WT < 150 kg, CrCl > 10-29 mL/min) *Enoxaparin/Lovenox 30 mg SQ BID (WT < 150 kg, CrCl > 30 mL/min) AND/OR *Sequential Compression Device (SCD) 5 or more Highest Order ONE of the following medications: *Heparin 5000 units SQ TID (Preferred with Epidurals) *Enoxaparin/Lovenox 40 mg SQ daily (WT < 150 kg, CrCl > 30 mL/min) *Enoxaparin/Lovenox 30 mg SQ daily (WT < 150 kg, CrCl > 10-29 mL/min) *Enoxaparin/Lovenox 30 mg SQ BID (WT < 150 kg, CrCl > 30 mL/min) AND *Sequential Compression Device (SCD) Assessment and Plan Plan 83 y/o female with a history of Afib on Eliquis, anxiety and hypothyroid presented to the ER with complaints of feeling tired for 6 weeks. Symptomatic Bradycardia, HR<50 EKG shows SR with first degree block -Monitor telemetry -Consult cardiology for evaluation -IVF for hydration -B12, and Vit D levels ordered -PT eval Possible Depression with recent appetite changes and weightloss -Add Ensure when no longer NPO -Consult psych for evaluation -Patient may benefit from appetite stimulant Afib, chronic -Resume home Eliquis Hypothyroid, chronic -Resume home levothyroxine -Check TSH Anxiety, chronic -Resume home Xanax and fluoxetine DVT prophylaxis: Eliquis Discussed Condition With: Patient and RN
[2018-09-14] MEDS ORDERED: ALPRAZolam 0.25 MG Tablet PO PRN (02:10)
[2018-09-14] MEDS: Sod Chloride 0.9% Inj 1,000 ML IV.CONT SCH ×2 (02:31→21:24)
[2018-09-14 05:19] LABS: Baso # (Auto) 0.1 th/mm3 (0.0-0.2); Baso % (Auto) 0.7 % (0.0-2.0); Eos # (Auto) 0.3 th/mm3 (0.0-0.4); Eos % (Auto) 3.2 % (0.0-4.0); Hematocrit 41.2 % (35.0-46.0); Lymph # (Auto) 1.4 th/mm3 (1.0-4.8); Lymph % (Auto) 15.4 % (9.0-44.0); Mean Corpuscular HGB Conc 33.9 % (32.0-36.0); Mean Corpuscular Hemoglobin 32.2 pg (27.0-34.0); Mean Platelet Volume 7.5 fL (7.0-11.0); Mono % (Auto) 10.7 % (0.0-8.0); Neut # (Auto) 6.6 th/mm3 (1.8-7.7); Platelet Count 236 th/mm3 (150-450); Red Blood Count 4.34 mil/mm3 (4.00-5.30); Red Cell Distribution Width 14.4 % (11.6-17.2); White Blood Count 9.4 th/mm3 (4.0-11.0)
[2018-09-14 06:13] LABS: Anion Gap 6 meq/L (5-15); Blood Urea Nitrogen 10 mg/dL (7-18); Carbon Dioxide 26.7 meq/L (21.0-32.0); Chloride 101 meq/L (98-107); Glomerular Filtration Rate 58 mL/min (>89); Glucose,Random 101 mg/dL (74-106); Potassium 3.8 meq/L (3.5-5.1); Sodium 134 meq/L (136-145); Vitamin B12 1492 pg/mL (193-986)
[2018-09-14] MEDS: Levothyroxine 50 MCG Tablet PO SCH (06:23)
[2018-09-14] MEDS ORDERED: FLUoxetine 10 MG Capsule PO SCH (09:00)
[2018-09-14] MEDS: hydrALAZINE 25 MG Tablet PO SCH ×3 (11:10→18:29)
[2018-09-14] MEDS: Flecainide 100 MG Tablet PO SCH ×2 (11:16→21:32)
--- NOTE | 2018-09-14 13:45 | P.CONPSY ---
Provisional Diagnosis Admission Date: September 13, 2018 20:56 [place] I.: Adjustment disorder with depressed mood vs major depressive disorder, recurrent , moderate, generalized anxiety History of Present Illness Service: ER Primary Care Provider: Junior Quinonez MD History of Present Illness: The patient is a 83-year-old woman, domiciled with her in [place], no children, retired, with a psychiatric history of anxiety and depression, no previous psychiatric admissions, no pre-suicide attempts, she is on Xanax 0.25 mg twice daily, Prozac 10 mg prescribed by PCP, with a medical history of Afib on Eliquis and hypothyroid, who presented to the ER with complaints of feeling tired for 6 weeks. She states she has fallen 3-4 times over the last few weeks, and has been having to use a cane more frequently. She states she has had no appetite and lost 23 pounds since June. She states she just feels weak. Denies any chest pain, heart palpitation, nausea, vomiting , fever or chills. Upon examination patients HR was 76. The patient was admitted in observation status due to Symptomatic Bradycardia, HR<50. EKG shows SR with first degree block. Consult cardiology for evaluation. Hypothyroid, chronic. THS is elevated, 5.7. Levothyroxine 50 mg reinitiated. Consulted to psychiatry due to symptoms of depression. Chart was reviewed. On my psychiatric evaluation I find a patient that is calm, cooperative, very pleasant. The patient reports that she has been increasingly depressed in the last 2 months due to aggravation of her medical conditions. She says that she hates to come to the hospital, every time that she is in the hospital she becomes more depressed. She says that in the last 2 months, due to frequent falls, fecal incontinence and feeling weak, she has been avoiding to eat, and for this reason she has been increasingly depressed. The patient described her depression and sad and irritable mood, lack of motivation, generalized pessimism , distortion and self image, difficulty sleeping at night, intrusive thoughts, but she denies hopelessness, denies helplessness, denies suicidal, denies homicidal ideation, she denies visual and auditory hallucinations. The patient also reports occasional anxiety, but she reports that she is well controlled with her Xanax. She reports that she has been responsive to Paxil, which she thinks that her current dose might not be enough. The patient is fully oriented x3, there is no attention deficit, no fluctuation of consciousness. During my evaluation there is no paranoia, no delusions, no ideas of reference, no loosening of no agitation, no aggressive behavior. There is no symptoms of withdrawal. PPHx:with a psychiatric history of anxiety and depression, no previous psychiatric admissions, no pre-suicide attempts, she is on Xanax 0.25 mg twice daily, Prozac 10 mg prescribed by PCP PMHx: with a medical history of Afib on Eliquis and hypothyroid, Family Hx: No family psychiatric history Substance Hx: Denies the use of alcohol and illegal drugs. 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, her highest level of medications are some college credits Review of Systems All other systems reviewed negative except as stated in HPI Constitutional: Reports anorexia, Reports fatigue, Reports lack of energy, Denies body ache(s), Denies chills, Denies daytime sleepiness, Denies excessive sweating, Denies fever(s), Denies headache(s), Denies increased appetite, Denies malaise, Denies night sweats, Denies weakness, Denies weight gain, Denies weight loss, Denies other Ears, Nose, Mouth, and Throat: Denies abnormal hearing, Denies bleeding gums, Denies bad breath, Denies change in voice, Denies dental pain, Denies difficulty swallowing, Denies dizziness, Denies dry mouth, Denies ear discharge , Denies ear pain, Denies facial pain, Denies headache(s), Denies hearing loss, Denies hoarseness, Denies lip swelling, Denies nosebleed, Denies mouth lesions, Denies mouth pain, Denies nasal congestion, Denies nasal discharge, Denies nasal obstruction, Denies nasal trauma, Denies neck lump, Denies neck pain, Denies nose pain, Denies pain with swallowing, Denies poor balance, Denies post nasal drip, Denies ringing in the ears, Denies sinus pain, Denies sinus pressure , Denies sore throat, Denies throat swelling, Denies tongue swelling, Denies other Cardiovascular: Denies chest pain, Denies chest pain at rest, Denies chest pain with activity, Denies excessive sweating, Denies fainting, Denies fast heart rate, Denies foot swelling, Denies generalized swelling, Denies irregular heart rhythm, Denies leg pain with activity, Denies leg sores, Denies leg swelling, Denies lightheadedness, Denies radiating jaw, neck or arm pain, Denies rapid, pounding, or irregular heartbeat, Denies shortness of breath, Denies shortness of breath with activity, Denies shortness of breath when lying down, Denies shortness of breath causing sudden awakening, Denies slow heart rate, Denies other Respiratory: Denies change in phlegm color, Denies chest congestion, Denies cough, Denies coughing up blood, Denies excessive phlegm production, Denies pain on inspiration, Denies pain with cough, Denies shortness of breath, Denies shortness of breath with activity, Denies snoring, Denies stridor, Denies wheezing, Denies other Gastrointestinal: Reports incontinent of stools, Denies abdominal pain, Denies belching, Denies black, tarry stools, Denies bloating, Denies bright, red blood in stools, Denies change in bowel habits, Denies constant urge to pass stool, Denies change in stools, Denies coffee ground vomit, Denies constipation, Denies cramping, Denies difficulty swallowing, Denies excessive passing of gas, Denies feeling full early, Denies heartburn, Denies loose stools, Denies nausea , Denies pain with swallowing, Denies vomiting, Denies vomiting blood, Denies other Genitourinary: Denies abnormal periods, Denies abnormal vaginal bleeding, Denies absent period, Denies bleeding between periods, Denies blood in urine, Denies difficulty starting urination, Denies difficulty urinating, Denies dribbling after urination, Denies frequent nighttime urination, Denies genital itching, Denies genital lesions, Denies heavy periods, Denies hot flashes, Denies light periods, Denies nipple discharge, Denies painful intercourse, Denies painful periods, Denies painful urination, Denies pelvic pain, Denies prolapse symptoms, Denies sexual problems, Denies side pain, Denies urinary incontinence, Denies urinary urgency, Denies vaginal discharge, Denies vaginal dryness, Denies vaginal odor, Denies vaginal itching, Denies other Musculoskeletal: Denies abnormal walking, Denies back pain, Denies body aches, Denies decreased muscle mass, Denies deformity, Denies joint pain, Denies joint swelling, Denies limited joint movement, Denies loss of height, Denies muscle cramps, Denies muscle weakness, Denies neck pain, Denies numbness, Denies radiating pain into limb, Denies stiffness, Denies tingling, Denies other Neurologic: Denies abnormal hearing, Denies abnormal movements, Denies abnormal speech, Denies abnormal walking, Denies behavioral changes, Denies burning sensations, Denies confusion, Denies dizziness, Denies fainting, Denies frequent falls, Denies headache(s), Denies lack of coordination, Denies localized weakness, Denies loss of vision, Denies memory loss, Denies numbness, Denies other visual disturbances, Denies radiating pain, Denies restless legs, Denies convulsions, Denies seizure-like activity, Denies sensory deficit, Denies tingling, Denies tingling/numbness/burning sensations, Denies tremor(s), Denies unsteadiness, Denies weakness, Denies other Psychiatric: Reports depression, Denies abnormal sleep pattern, Denies anxiety, Denies behavioral changes, Denies change in appetite, Denies change in sex drive , Denies confusion, Denies difficulty concentrating, Denies hearing things others do not hear, Denies hopelessness, Denies irritability, Denies lack of enjoyment, Denies memory loss, Denies mood swings, Denies panic attacks, Denies paranoia, Denies seeing things others do not see, Denies sensing things others do not sense, Denies tactile hallucinations, Denies thoughts of hurting/killing others, Denies thoughts of hurting/killing yourself, Denies other PMFSH - History History Provided By: Patient - Medical History Medical History: Medical History (Last Reviewed 09/14/18 @ 08:53 by Cesario Silverio) Afib HTN (hypertension) History of hysterectomy Hypothyroid - Surgical History Surgical History: Surgical History (Last Reviewed 09/14/18 @ 08:53 by Cesario Silverio) History of hip replacement History of radiofrequency ablation procedure for cardiac arrhythmia - Family History Family History: Family History (Last Updated 09/14/18 @ 02:03 by CHRIS Calloway) Father CAD (coronary artery disease) Mother CAD (coronary artery disease) Other Diabetes - Tobacco History Second Hand Smoke Exposure: No Smoking Status: Never smoker Tobacco Type: Cigarettes - Alcohol History How Often Do You Have a Drink Containing Alcohol: Never - Substance Use History Substance History: No History of Abuse - Travel History Recent Travel in the [place] Within the Last 8 Weeks: No Recent Travel Out of the Country Within the Last 8 Weeks: No - Immunization History Tetanus Immunization: >5 Years Medications and Allergies Active Medications: Active Medications Acetaminophen (Tylenol) 650 mg PO Q4H PRN PRN Reason: Temp > 100.4 Last Admin: 09/14/18 11:10 Dose: 650 mg Al Hydroxide/Mg Hydroxide (Milk Of Magnesia Liq) 30 ml PO Q12H PRN PRN Reason: Mild Constipation Alprazolam (Xanax) 0.25 mg PO DAILY PRN PRN Reason: AGITATION Last Admin: 09/14/18 02:41 Dose: 0.25 mg Apixaban (Eliquis) 5 mg PO BID [facility] Last Admin: 09/14/18 09:22 Dose: 5 mg Bisacodyl (Dulcolax Supp) 10 mg RECTAL DAILY PRN PRN Reason: SEVERE CONSITIPATION Flecainide Acetate (Tambocor) 100 mg PO BID [facility] Last Admin: 09/14/18 11:16 Dose: 100 mg Fluoxetine HCl (Prozac) 20 mg PO DAILY [facility] Hydralazine HCl (Apresoline) 25 mg PO TID [facility] Last Admin: 09/14/18 11:10 Dose: 25 mg Sodium Chloride (Ns Inj) 1,000 mls @ 50 mls/hr IV.CONT .Q20H [facility] Last Admin: 09/14/18 02:31 Dose: 50 mls/hr Lactulose (Lactulose Liq) 30 ml PO DAILY PRN PRN Reason: SEVERE CONSITIPATION Levothyroxine Sodium (Synthroid) 50 mcg PO DAILY@0700 [facility] Last Admin: 09/14/18 06:23 Dose: 50 mcg Ondansetron HCl (Zofran Inj) 4 mg IV.PUSH Q6H PRN PRN Reason: NAUSEA OR VOMITING Potassium Chloride (K-Dur) 20 meq PO DAILY [facility] Senna/Docusate Sodium (Magdalena-Colace) 2 tab PO QPM [facility] Sennosides (Senokot) 17.2 mg PO Q12H PRN PRN Reason: Moderate Constipation Sodium Chloride (Ns Flush) 2 ml IV.FLUSH BID [facility]RI[facility] Last Admin: 09/14/18 09:22 Dose: Not Given Sodium Chloride (Ns Flush) 2 ml IV.FLUSH PRN PRN PRN Reason: FLUSH AFTER USING IV ACCESS Allergies Allergy/AdvReac Type Severity Reaction Status Date / Time cefaclor Allergy Severe RASH Verified 07/04/18 09:33 paroxetine Allergy Severe Rash Verified 07/04/18 09:33 Sulfa (Sulfonamide Allergy Severe RASH Verified 07/04/18 09:33 Antibiotics) ciprofloxacin Allergy Unknown GI UPSET Verified 07/04/18 09:33 clonidine Allergy Unknown SKIN Verified 07/04/18 09:33 IRRITATION latex bandages AdvReac Mild SKIN Uncoded 07/02/18 10:47 REDNESS, RASH Home Medications Medication Instructions Recorded Confirmed Type alprazolam 0.25 mg PO DAILY 05/18/18 09/13/18 History apixaban [Eliquis] 5 mg PO BID 05/18/18 09/13/18 History levothyroxine 50 mcg PO DAILY 05/18/18 09/13/18 History multivitamin [One Daily Essential] 1 tab PO QPM 09/13/18 09/13/18 History ondansetron HCl [Zofran] 8 mg PO BID PRN 09/13/18 09/13/18 History sennosides-docusate sodium [Senna 2 tab PO QPM 09/13/18 09/13/18 History Plus] Exam Vital signs: Vital Signs 09/13/18 17:11 09/13/18 18:52 09/13/18 20:54 Temperature 97.4 F L Pulse Rate 61 46 L 50 L Respiratory Rate 18 20 18 Blood Pressure 219/93 H 196/84 H 194/87 H Pulse Oximetry 99 97 96 09/13/18 21:35 09/13/18 23:30 09/14/18 00:00 Temperature 97.7 F Pulse Rate 53 L 70 55 L Respiratory Rate 18 18 12 Blood Pressure 162/69 H 139/64 188/80 H Pulse Oximetry 98 98 97 09/14/18 04:00 09/14/18 08:00 09/14/18 12:00 Temperature 97.9 F 97.6 F Pulse Rate 60 63 69 Respiratory Rate 18 12 16 Blood Pressure 139/61 189/86 H 158/68 H Pulse Oximetry 97 94 L 98 Intake & Output 09/13/18 09/14/18 09/14/18 18:59 06:59 18:59 Weight 57.606 kg Other: Date of Last Bowel Movement 09/12/18 Narrative: No psychomotor agitation or retardation, no withdrawal symptoms, no EPS, no catatonia - Constitutional no acute distress, mild distress - Routine HEENT Exam Head: Present: normocephalic, atraumatic Eye: Present: EOMI, PERRL ENT: Present: mucous membranes moist Mental Status Examination Appearance: Appropriate Consciousness: Alert Orientation: x4 Motor Activity: Normal gait Speech: Unremarkable Language: Adequate Fund of Knowledge: Adequate Attention and Concentration: Adequate Memory: Unremarkable Mood: Appropriate, Sad Affect: Euthymic Thought Process & Associations: Intact Thought Content: Appropriate Hallucination Type: None Delusion Type: None Suicidal Ideation: No Suicidal Plan: No Suicidal Intention: No Homicidal Ideation: No Homicidal Plan: No Homicidal Intention: No Insight: Adequate Judgment: Adequate Assessment and Plan - Assessment (1) Major depressive disorder, recurrent, moderate Code(s): F33.1 - Major depressive disorder, recurrent, moderate Status: Acute (2) Anxiety Code(s): F41.9 - Anxiety disorder, unspecified Status: Acute - Plan Plan: On my psychiatric evaluation today the patient presents calm, cooperative, pleasant. The patient reports increased symptoms of depression in the last 2 months in the context of medical decompensation, decreased functionality at home , episodes of falling and fecal incontinence. The patient reports that in the last month she has been having increased sense of generalized pessimism, lack of energy, intrusive thoughts, preoccupation, impaired self image, insomnia, also moments of anxiety. She does deny suicidal and homicidal ideation, denies visual and auditory hallucinations. Current neuropsychiatric symptom definitely related with underlying medical conditions, especially they could be related with decompensated hypothyroidism as showed by TSH of 5.7. She does not meet criteria for involuntary psychiatric admission. I will increase her Paxil to 20 mg to help with her depression. The patient can continue Xanax 0.25 mg twice daily, but it is important to clarify that Xanax can contribute an increase with fall, and other medication for anxiety should be explored with the patient in outpatient basis. I have discussed this possibility with the patient, but the patient seems to be reluctant to change this medication arguing that this is the medication to help her the most. Extensive support, motivation, psychoeducation provided. I will follow-up. Justification for Continued Inpatient Stay: No psychiatric admission indicated.
[2018-09-14] MEDS: FLUoxetine 20 MG Capsule PO SCH (16:49)
[2018-09-14] MEDS: Senna/Docusate Sodium 8.6/50 MG Tablet PO SCH (18:29)
--- NOTE | 2018-09-14 21:33 | ECG ---
Date Performed: 09/14/2018 Time Performed: 05:31:58 PTAGE: 83 years EKG: Sinus rhythm WITH FIRST DEGREE AV BLOCK RIGHT BUNDLE BRANCH BLOCK ABNORMAL ECG NO PREVIOUS TRACING DOCTOR: Luke Degroot Interpretating Date/Time 09/14/2018 21:32:39
--- NOTE | 2018-09-14 21:46 | ECG ---
Date Performed: 09/13/2018 Time Performed: 22:39:13 PTAGE: 83 years EKG: Sinus rhythm WITH FIRST DEGREE AV BLOCK INTRAVENTRICULAR CONDUCTION DELAY ABNORMAL ECG PREVIOUS TRACING : 09/13/2018 19.11 Since the previous tracing, no significant change noted DOCTOR: Luke Degroot Interpretating Date/Time 09/14/2018 21:44:30
--- NOTE | 2018-09-14 21:51 | ECG ---
Date Performed: 09/13/2018 Time Performed: 19:11:23 PTAGE: 83 years EKG: UNCERTAIN REGULAR RHYTHM LATERAL MYOCARDIAL INFARCTION MODERATE T-WAVE ABNORMALITY, CONSIDE R ANTERIOR ISCHEMIA MODERATE T-WAVE ABNORMALITY, CONSIDER INFERIOR ISCHEMIA ABNORMAL ECG NO PREVIOUS TRACING DOCTOR: Luke Degroot Interpretating Date/Time 09/14/2018 21:48:58
[2018-09-14] MEDS: ALPRAZolam 0.25 MG Tablet PO PRN (22:42)
[2018-09-15] MEDS: Levothyroxine 50 MCG Tablet PO SCH (06:12)
[2018-09-15 08:09] LABS: Calcium 8.3 mg/dL (8.5-10.1); Carbon Dioxide 25.2 meq/L (21.0-32.0); Potassium 3.4 meq/L (3.5-5.1)
--- NOTE | 2018-09-15 10:05 | P.PNIM ---
Subjective Interval history: Follow-up visit bradycardia, hypertension, A. fib on Eliquis, anxiety, hypothyroidism. Patient seen and examined today. at the bedside. Patient is very repetitive and confused and runs around the story. She is very concentrated on taking alprazolam/Xanax. States that she has been taking this for 40 years. Discussed with patient her problem of being hypertensive with a lower heart rate. verbalized understanding. States that patient has baseline confusion after hospitalization in July. states that this is not worsening. He is concerned about patient not eating well and has no appetite to eat. Patient states that her body is telling her to bring out the food from her mouth and not swallow it. Denies any odynophagia, dysphagia. States that it is just her body telling her not to swallow food. Otherwise, patient denies chest pain, palpitations, headaches, dizziness. Reports headaches yesterday, possibly secondary to BP being elevated. Denies dysuria, denies fevers, chills, nausea, diarrhea. Physical Exam Vital signs: Vital Signs 09/14/18 12:00 09/14/18 16:04 09/14/18 20:00 Temperature 97.6 F 98.3 F 97.9 F Pulse Rate 69 65 65 Respiratory Rate 16 20 16 Blood Pressure 158/68 H 180/80 H 180/76 H Pulse Oximetry 98 97 96 09/14/18 20:10 09/14/18 23:36 09/15/18 00:00 Temperature Pulse Rate 62 65 64 Respiratory Rate 16 Blood Pressure 157/68 H Pulse Oximetry 96 09/15/18 04:00 09/15/18 07:43 Temperature 98.4 F Pulse Rate 61 54 L Respiratory Rate 16 16 Blood Pressure 182/72 H 180/77 H Pulse Oximetry 96 96 Intake & Output 09/14/18 09/15/18 09/15/18 18:59 06:59 18:59 Intake Total 1000 / 1000 Balance 1000 / 1000 Weight 57.606 kg Intake: IV 1000 / 1000 NS Inj 1,000 ML @ 75 mls/hr IV. 1000 / 1000 CONT .[id number] ERIK Rx#:[id number] Other: # Voids 1 Date of Last Bowel Movement 09/14/18 09/14/18 Weight On Admission 57.606 kg Narrative: GENERAL: This is a thin appearing elderly female, well-developed patient, in no apparent distress. SKIN: Warm and dry. HEENT: Normocephalic. Pupils equal round and reactive. Nose without bleeding. Airway patent. NECK: Trachea midline. No JVD. Supple. CARDIOVASCULAR: Regular rate and rhythm without murmurs, gallops, or rubs. RESPIRATORY: Clear to auscultation. Breath sounds equal bilaterally. No wheezes , rales, or rhonchi. GASTROINTESTINAL: Abdomen soft, non-tender, nondistended. Bowel Sounds normoactive x4. MUSCULOSKELETAL: Extremities without clubbing, cyanosis, or edema. NEUROLOGICAL: Awake and alert. Confused. Repetitive with conversation. Unable to focus on conversation. Needs to be continuously redirected to the topic. Conflate her stories. Moves all extremities. Normal speech. Results Labs CBC & Chem 7: 09/14/18 04:55 09/15/18 05:38 Assessment and Plan (1) Major depressive disorder, recurrent, moderate: Code(s): F33.1 - Major depressive disorder, recurrent, moderate Status: Acute (2) Anxiety: Code(s): F41.9 - Anxiety disorder, unspecified Status: Acute Plan 83 y/o female with a history of Afib on Eliquis, anxiety and hypothyroid presented to the ER with complaints of feeling tired for 6 weeks. Symptomatic Bradycardia, HR<50 EKG shows SR with first degree block Hypertension, uncontrolled -Monitor telemetry. Imaging of brain and C spine did not show any acute findings. -CXR with some atelectasis. ECG-NSR at 72b/min with 1st degree block. -Follow up with Dr. Rincon in the outpatient. -Patient's heart rate has been improving it has been in the 50s. -IVF for hydration -B12 1492 and Vit D level 36 -PT eval and treat -Started on hydralazine will increase the dose to 50 mg 3 times daily. Monitor for improvement Possible Depression with recent appetite changes and weight loss Poor appetite -Add Ensure when no longer NPO -Consult psych for evaluation -Patient may benefit from appetite stimulant, trial megace -Encourage favorite food, jello, popsicles Afib, chronic -Resume home Eliquis Hypothyroid, chronic -Resume home levothyroxine -TSH 3.640 Anxiety, chronic -Resume home Xanax and fluoxetine -Psychiatry following DVT prophylaxis Eliquis Full code Discussed Condition With: Patient, nursing, Dr. Wilson Discharge Planning: DC home with C when clinically improved. Monitor BP trend for now. Progress Note: Quality VTE Deep Vein Thrombosis/Pulmonary Embolism Present on Admission: No
[2018-09-15] MEDS: hydrALAZINE 25 MG Tablet PO SCH ×3 (10:36→18:17)
[2018-09-15] MEDS: Flecainide 100 MG Tablet PO SCH ×2 (10:37→22:20)
[2018-09-15] MEDS: FLUoxetine 20 MG Capsule PO SCH (10:37)
--- NOTE | 2018-09-15 11:17 | P.PNPSY ---
Subjective Remarks: The patient was seen today for psychiatric reevaluation. Case discussed with nursing charge. Patient is found calm, cooperative, with a brighter affect than yesterday. Patient reports that she feels a little bit better mood zuluaga, even though continues to be quite concerned about constipation. She also concerned about her medical conditions "thinking that I might have cancer". A little bit catastrophic about medical conditions. However she reports to be hopeful, she reports that she wants to get better. Describes her mood as 5/10, "better than yesterday". Reports that she had a good sleep last night. Denies anxiety at the moment. She denies suicidal enemas ideation, denies visual and auditory hallucinations. The patient is fully oriented x3, no attention deficit , no fluctuation of consciousness. Mental Status Examination Appearance: Appropriate Consciousness: Alert Orientation: x4 Motor Activity: Normal gait Speech: Unremarkable Language: Adequate Fund of Knowledge: Adequate Attention and Concentration: Adequate Memory: Unremarkable Mood: Appropriate, Sad Affect: Euthymic Thought Process & Associations: Intact Thought Content: Appropriate Hallucination Type: None Delusion Type: None Suicidal Ideation: No Suicidal Plan: No Suicidal Intention: No Homicidal Ideation: No Homicidal Plan: No Homicidal Intention: No Insight: Adequate Judgment: Adequate Assessment and Plan - Assessment (1) Major depressive disorder, recurrent, moderate Code(s): F33.1 - Major depressive disorder, recurrent, moderate Status: Acute (2) Anxiety Code(s): F41.9 - Anxiety disorder, unspecified Status: Acute - Plan Plan: Patient seems to be in a brighter affect and in a better spirit today. A little bit catastrophic about medical conditions, but denies hopelessness, denies helplessness, denies suicidal and was ideation, denies visual and auditory hallucinations. Reports better sleep last night. Continue current psychotropic regimen. Continue psychiatric care as an outpatient. No admission indicated. Support, motivation, psychoeducation provided. Justification for Continued Inpatient Stay: No admission is indicated.
[2018-09-15] MEDS: Sod Chloride 0.9% Inj 1,000 ML IV.CONT SCH (13:47)
[2018-09-15] MEDS: Senna/Docusate Sodium 8.6/50 MG Tablet PO SCH (18:16)
[2018-09-15] MEDS: ALPRAZolam 0.25 MG Tablet PO PRN (22:20)
[2018-09-16] MEDS: Sod Chloride 0.9% Inj 1,000 ML IV.CONT SCH (05:15)
[2018-09-16] MEDS: Levothyroxine 50 MCG Tablet PO SCH (06:11)
--- NOTE | 2018-09-16 08:48 | P.PNIM ---
Subjective Interval history: Follow-up visit bradycardia, hypertension, A. fib on Eliquis , anxiety, hypothyroidism. Patient seen and examined today. Patient states she is doing okay. is concern about use of flecanaide as he looked up side effects causing anorexia. discussed weighing in benefits versus risk on using the medication and thatpatient started on appetite stimulant yesterday. encourage bringing favorite food from home. verbalized understanding. Otherwise , patient denies chest pain, palpitations, headaches, dizziness. Denies dysuria , denies fevers, chills. Denies dysuria. Physical Exam Vital signs: Vital Signs 09/15/18 09:00 09/15/18 11:33 09/15/18 15:30 Temperature 96.4 F L 98.1 F Pulse Rate 60 54 L 54 L Respiratory Rate 16 16 Blood Pressure 110/56 L 168/74 H Pulse Oximetry 96 96 09/15/18 20:00 09/15/18 23:34 09/16/18 03:27 Temperature 98 F 98 F 97.6 F Pulse Rate 70 73 64 Respiratory Rate 16 12 12 Blood Pressure 154/67 H 162/72 H 183/95 H Pulse Oximetry 99 97 94 L 09/16/18 07:19 Temperature 98.6 F Pulse Rate 69 Respiratory Rate 20 Blood Pressure 188/86 H Pulse Oximetry 97 Intake & Output 09/15/18 09/16/18 09/16/18 18:59 06:59 18:59 Other: Date of Last Bowel Movement 09/15/18 Narrative: GENERAL: This is a thin appearing elderly female, well-developed patient, in no apparent distress. SKIN: Warm and dry. HEENT: Normocephalic. Pupils equal round and reactive. Nose without bleeding. Airway patent. NECK: Trachea midline. No JVD. Supple. CARDIOVASCULAR: Regular rate and rhythm without murmurs, gallops, or rubs. RESPIRATORY: Clear to auscultation. Breath sounds equal bilaterally. No wheezes , rales, or rhonchi. GASTROINTESTINAL: Abdomen soft, non-tender, nondistended. Bowel Sounds normoactive x4. MUSCULOSKELETAL: Extremities without clubbing, cyanosis, or edema. NEUROLOGICAL: Awake and alert. Confused. Repetitive with conversation. Conflate her stories. Moves all extremities. Normal speech. Results Labs CBC & Chem 7: 09/14/18 04:55 09/15/18 05:38 Assessment and Plan (1) Major depressive disorder, recurrent, moderate: Code(s): F33.1 - Major depressive disorder, recurrent, moderate Status: Acute (2) Anxiety: Code(s): F41.9 - Anxiety disorder, unspecified Status: Acute Plan 83 y/o female with a history of Afib on Eliquis, anxiety and hypothyroid presented to the ER with complaints of feeling tired for 6 weeks. Symptomatic Bradycardia, HR<50 EKG shows SR with first degree block Hypertension, uncontrolled -Monitor telemetry. Imaging of brain and C spine did not show any acute findings. -CXR with some atelectasis. ECG-NSR at 72b/min with 1st degree block. -Follow up with Dr. Rincon in the outpatient. -Patient's heart rate has been improving it has been in the 50s. -IVF for hydration -B12 1492 and Vit D level 36 -PT eval and treat -hydralazine will increase the dose to 75 mg 3 times daily. Monitor for improvement Possible Depression with recent appetite changes and weight loss Poor appetite -Add Ensure when no longer NPO -Consult psych for evaluation -Megace bid -Encourage favorite food, jello, popsicles enc favorite food Afib, chronic -Resume home Eliquis Hypothyroid, chronic -Resume home levothyroxine -TSH 3.640 Anxiety, chronic Depression -Resume home Xanax and fluoxetine. Depression may contribute to poor appetite -Psychiatry following DVT prophylaxis Eliquis Full code Discharge Planning: DC home with [facility] when clinically improved. Monitor BP trend for now. Progress Note: Quality VTE Deep Vein Thrombosis/Pulmonary Embolism Present on Admission: No
[2018-09-16] MEDS: hydrALAZINE 25 MG Tablet PO SCH ×3 (09:52→18:19)
[2018-09-16] MEDS: FLUoxetine 20 MG Capsule PO SCH (09:54)
[2018-09-16] MEDS: Flecainide 100 MG Tablet PO SCH ×2 (09:55→20:07)
[2018-09-16] MEDS: ALPRAZolam 0.25 MG Tablet PO PRN (18:20)
[2018-09-16] MEDS: Senna/Docusate Sodium 8.6/50 MG Tablet PO SCH (18:20)
[2018-09-16] MEDS: Acetaminophen 325 MG Tablet PO PRN (20:07)
[2018-09-17] MEDS: Levothyroxine 50 MCG Tablet PO SCH (06:16)
[2018-09-17] MEDS: hydrALAZINE 25 MG Tablet PO SCH ×3 (08:14→19:53)
[2018-09-17] MEDS: Flecainide 100 MG Tablet PO SCH ×2 (08:15→20:45)
[2018-09-17] MEDS: FLUoxetine 20 MG Capsule PO SCH ×2 (08:15→08:52)
[2018-09-17] MEDS: ALPRAZolam 0.25 MG Tablet PO PRN ×2 (08:15→20:45)
[2018-09-17] MEDS: Lisinopril 20 MG Tablet PO SCH (08:51)
--- NOTE | 2018-09-17 11:27 | P.PNIM ---
Subjective Interval history: Follow-up visit bradycardia, hypertension, A. fib on Eliquis , anxiety, hypothyroidism. Patient seen and examined today. Patient states she is doing okay. Otherwise, patient denies chest pain, palpitations, headaches, dizziness. Denies dysuria, denies fevers, chills. Denies dysuria. Physical Exam Vital signs: Vital Signs 09/16/18 16:32 09/16/18 20:00 09/16/18 23:47 Temperature 98.4 F 97.6 F 97.8 F Pulse Rate 69 76 61 Respiratory Rate 20 16 12 Blood Pressure 164/75 H 154/87 H 151/67 H Pulse Oximetry 97 97 96 09/17/18 03:32 09/17/18 07:46 09/17/18 10:11 Temperature 97.5 F L 98.0 F Pulse Rate 63 75 77 Respiratory Rate 12 16 Blood Pressure 162/70 H 188/86 H 119/56 L Pulse Oximetry 93 L 95 95 Intake & Output 09/16/18 09/17/18 09/17/18 18:59 06:59 18:59 Intake Total 200 / 200 400 / 400 Output Total 800 / 800 Balance 200 / 200 -400 / -400 Intake: IV 200 / 200 NS Inj 1,000 ML @ 75 mls/hr IV. 200 / 200 CONT .[id number] ERIK Rx#:[id number] Oral 400 / 400 Output: Urine 800 / 800 Other: Date of Last Bowel Movement 09/17/18 # Bowel Movements 0 Narrative: GENERAL: This is a thin appearing elderly female, well-developed patient, in no apparent distress. SKIN: Warm and dry. HEENT: Normocephalic. Pupils equal round and reactive. Nose without bleeding. Airway patent. NECK: Trachea midline. No JVD. Supple. CARDIOVASCULAR: Regular rate and rhythm without murmurs, gallops, or rubs. RESPIRATORY: Clear to auscultation. Breath sounds equal bilaterally. No wheezes , rales, or rhonchi. GASTROINTESTINAL: Abdomen soft, non-tender, nondistended. Bowel Sounds normoactive x4. MUSCULOSKELETAL: Extremities without clubbing, cyanosis, or edema. NEUROLOGICAL: Awake and alert. Confused. Repetitive with conversation. Conflate her stories. Moves all extremities. Normal speech. Results Labs CBC & Chem 7: 09/14/18 04:55 09/15/18 05:38 Assessment and Plan (1) Major depressive disorder, recurrent, moderate: Code(s): F33.1 - Major depressive disorder, recurrent, moderate Status: Acute (2) Anxiety: Code(s): F41.9 - Anxiety disorder, unspecified Status: Acute Plan 83 y/o female with a history of Afib on Eliquis, anxiety and hypothyroid presented to the ER with complaints of feeling tired for 6 weeks. Symptomatic Bradycardia, HR<50 EKG shows SR with first degree block Hypertension, uncontrolled -Monitor telemetry. Imaging of brain and C spine did not show any acute findings. -CXR with some atelectasis. ECG-NSR at 72b/min with 1st degree block. -Follow up with Dr. Rincon in the outpatient. -Patient's heart rate has been improving it has been in the 50s. -IVF for hydration -B12 1492 and Vit D level 36 -PT eval and treat -hydralazine will increase the dose to 75 mg 3 times daily. Lisinopril 20mg daily. -Improving Possible Depression with recent appetite changes and weight loss Poor appetite -Ensure -Consult psych for evaluation, appreciate recommendation -Megace bid -Encourage favorite food, jello, popsicles enc favorite food Afib, chronic -Resume home Eliquis -Flecainide -Spoke with patient and extensively regarding use of flecainide and waiting in the risk benefits of the medication. She will need to continue to follow with Dr. Rincon with regards to medication use or discontinuation of this medication as this is an antiarrhythmic medication. We started the patient on appetite stimulant and has been working. Verbalized understanding but will bring up the topic again when they see Dr. Rincon in the outpatient. Hypothyroid, chronic -Resume home levothyroxine -TSH 3.640 Anxiety, chronic Depression -Resume home Xanax and fluoxetine. Depression may contribute to poor appetite -Psychiatry following Generalized weakness secondary to prolonged hospitalization, multiple hospitalization -PT/OT eval and treat -We will DC with home health care PT and OT DVT prophylaxis Eliquis Full code Discharge Planning: DC home with [facility] tomorrow. Progress Note: Quality VTE Deep Vein Thrombosis/Pulmonary Embolism Present on Admission: No
--- NOTE | 2018-09-17 15:15 | P.DCO ---
Diagnosis (1) Major depressive disorder, recurrent, moderate: Status: Acute (2) Anxiety: Status: Acute Physical Therapy Order: Evaluate and treat Occupational Therapy Order: Evaluate and treat Home Health Nursing Order: Signs/symptoms of disease process and Medication education-adverse effect Case Management Consult Case Management Consult-Home Health: Yes I have seen patient Rachna Ferreira on 09/17/18. My clinical findings support the need for the requested home health care services because: Deconditioned with increased weakness, Impaired cognition/judgement and High risk of falls I certify that my clinical findings support that this patient is homebound because: Impaired cognitive ability/safety
[2018-09-17] MEDS: Senna/Docusate Sodium 8.6/50 MG Tablet PO SCH (19:53)
[2018-09-17] MEDS: Acetaminophen 325 MG Tablet PO PRN (20:45)
[2018-09-18] MEDS: Levothyroxine 50 MCG Tablet PO SCH (06:00)
[2018-09-18] MEDS: hydrALAZINE 25 MG Tablet PO SCH (08:54)
[2018-09-18] MEDS: Flecainide 100 MG Tablet PO SCH (08:55)
[2018-09-18] MEDS: FLUoxetine 20 MG Capsule PO SCH (08:55)
[2018-09-18] MEDS: Lisinopril 20 MG Tablet PO SCH (08:56)
[2018-09-18] MEDS: ALPRAZolam 0.25 MG Tablet PO PRN (09:00)
[2018-09-18 09:45] VITALS: BP 175/81; RESP 15; TEMP 97.8; O2SAT 98
--- NOTE | 2018-09-18 11:05 | P.DS ---
DS: Providers Date of admission: 09/16/18 14:59 Primary care physician: Junior Quinonez MD Consults: 09/14/18 03:01 Consult to Psychiatry Routine Consulting Provider: Marco A Lugo Reason for Consultation: possible depression, patient with no appetite, weightloss, anhedonia Notified:: Office Spoke with:: mamarcos Date Notified:: 09/14/18 Time Notified:: 03:19 Ordering Provider: PREM 09/14/18 15:15 Consult to Cardiology Routine Consulting Provider: Kin Rincon Does the patient have a [employer]nament[employer] Helper who follows them?: Yes Preferred Program Manager Transportation:: Kin Rincon Reason for Consultation: patient request Notified:: Office Spoke with:: Katelyn Date Notified:: 09/14/18 Time Notified:: 15:22 Ordering Provider: MONICA Brief History from admission: 83 y/o female with a history of Afib on Eliquis, anxiety and hypothyroid presented to the ER with complaints of feeling tired for 6 weeks. She states she has fallen 3-4 times over the last few weeks, and has been having to use a cane more frequently. She states she has had no appetite and lost 23 pounds since June. She states she just feels weak. Denies any chest pain, heart palpitation, nausea, vomiting, fever or chills. Upon examination patients HR was 76. DS: Diagnosis Discharge Diagnosis (1) Major depressive disorder, recurrent, moderate: Status: Acute (2) Anxiety: Status: Acute DS: Summary 83 y/o female with a history of Afib on Eliquis, anxiety and hypothyroid presented to the ER with complaints of feeling tired for 6 weeks. Symptomatic Bradycardia - currently resolved. HR in the 70s. EKG shows SR with first degree block Hypertension, uncontrolled -Monitor telemetry. Imaging of brain and C spine did not show any acute findings. -CXR with some atelectasis. ECG-NSR at 72b/min with 1st degree block. -Follow up with Dr. Rincon in the outpatient. -Patient's heart rate has been improving it has been in the 50s. -IVF for hydration -B12 1492 and Vit D level 36 -PT eval and treat -hydralazine will increase the dose to 75 mg 3 times daily. Lisinopril 20mg daily. -Improving Possible Depression with recent appetite changes and weight loss Poor appetite -Ensure -Consult psych for evaluation, appreciate recommendation -Megace bid -Encourage favorite food, jello, popsicles enc favorite food Afib, chronic -Resume home Eliquis -Flecainide -Spoke with patient and extensively regarding use of flecainide and waiting in the risk benefits of the medication. She will need to continue to follow with Dr. Rincon with regards to medication use or discontinuation of this medication as this is an antiarrhythmic medication. We started the patient on appetite stimulant and has been working. Verbalized understanding but will bring up the topic again when they see Dr. Rincon in the outpatient. Hypothyroid, chronic -Resume home levothyroxine -TSH 3.640 Anxiety, chronic Depression -Resume home Xanax and fluoxetine. Depression may contribute to poor appetite -Psychiatry following Generalized weakness secondary to prolonged hospitalization, multiple hospitalization -PT/OT eval and treat -We will DC with home health care PT DVT prophylaxis Eliquis Full code Overall, patient is doing well. Asymptomatic. No chest pain, dizziness, lightheadedness. She will follow up with Dr. Rincon in the outpatient setting. Time Spent with Patient Total time spent providing and/or coordinating discharge services: Less than 30 minutes Quality: VTE Deep Vein Thrombosis/Pulmonary Embolism Present on Admission: No Exam Narrative Exam Narrative: GENERAL: Alert, Oriented x 3, NAD. SKIN: Warm and dry. HEAD: Normocephalic. EYES: No scleral icterus. No injection or drainage. NECK: Supple, trachea midline. No JVD or lymphadenopathy. CARDIOVASCULAR: Regular rate and rhythm without murmurs, gallops, or rubs. RESPIRATORY: Breath sounds equal bilaterally. No accessory muscle use. GASTROINTESTINAL: Abdomen soft, non-tender, nondistended. MUSCULOSKELETAL: No cyanosis, or edema. BACK: Nontender without obvious deformity. No CVA tenderness. Results Impressions ITS Impressions Chest X-Ray 09/13/18 18:20 CONCLUSION: 1. Minimal left lung base airspace disease likely reflecting atelectasis. Discharge Plan Discharge Disposition Patient Disposition: W/Home Health Service Discharge Condition Condition: Stable Discharge Order Discharge Orders: Discharge Order (Routine); Ordered 09/18/18 Ordered By: Ihsan Tipton Discharge Details Anticipated Discharge Date: 09/18/18 Physicians Team ED Provider: Jessica Walker ED Midlevel Provider: Saarhy Llanos Primary Care Provider: Junior Quinonez Attending Provider: Ihsan Tipton Other Providers: Marco A Lugo ; Kin Rincon Rxs /Orders / Referrals /Forms Prescriptions: New megestrol 40 mg Tablet 40 mg PO BID Qty: 60 RF: 0 lisinopril 20 mg Tablet 20 mg PO DAILY Qty: 30 RF: 3 hydralazine 25 mg Tablet 75 mg PO TID Qty: 90 RF: 3 Continue alprazolam 0.25 mg Tablet 0.25 mg PO DAILY RF: 0 levothyroxine 50 mcg Tablet 50 mcg PO DAILY RF: 0 apixaban [Eliquis] 5 mg Tablet 5 mg PO BID RF: 0 multivitamin [One Daily Essential] Tablet 1 tab PO QPM RF: 0 sennosides-docusate sodium [Senna Plus] 8.6-50 mg Tablet 2 tab PO QPM RF: 0 ondansetron HCl [Zofran] 8 mg Tablet 8 mg PO BID PRN (Reason: Nausea) RF: 0 flecainide 100 mg Tablet 100 mg PO BID Qty: 60 RF: 2 fluoxetine 10 mg Capsule 10 mg PO DAILY Qty: 30 RF: 0 potassium chloride 20 mEq Tablet Extended Release 20 meq PO DAILY Qty: 10 RF: 0 Referrals: Junior Quinonez MD [Primary Care Provider] - See Instructions (Patient to follow up with Primary in 1 week. office closed for the weekend) Kin Rincon MD [Physician] - See Instructions (Follow up in 7 Days. Schedule an appointment. office is closed for the weekend) Discharge Instructions Patient Printed Instructions: Lisinopril (By mouth), Hydralazine (By mouth), Megestrol Acetate (By mouth) Post Discharge Care Plan Care Plan Goals: Your Health Problems: Goals to Promote Your Health: * To prevent worsening of your condition * To maintain your health at the optimal level Directions to Meet Your Goals: * Take your medications as prescribed * Follow your dietary instruction * Follow activity as directed * Keep your appointments as scheduled * Take your immunizations and boosters as scheduled * If your symptoms worsen call your PCP * If no PCP go to Urgent Care or Emergency Room Smoking is dangerous to your health. Avoid second hand smoke. You may reach the 24-hour crisis hotline for domestic abuse at . Status ED Status: Left Department Discharge Information Discharge Date/Time: 09/18/18 12:03
[2018-09-18 21:03] VITALS: PULSE 76
== END 2018-09-18 12:03 | disposition home health service (06) | DRG 885 ==
LOC: NEPE 17:04 → INTOOBSV 20:56 → NEDA 20:56 → NEDH 09-14 01:23 → NEPGCP 09-14 14:01 → N04 09-17 15:48
PROVIDERS: ADMIT Hospitalist; ATTEND Hospitalist
DX: R29.6 Repeated falls; Z88.2 Allergy status to sulfonamides; Z96.649 Presence of unspecified artificial hip joint; Z79.01 Long term (current) use of anticoagulants; Z79.899 Other long term (current) drug therapy; Z90.710 Acquired absence of both cervix and uterus; Z88.1 Allergy status to other antibiotic agents; E03.9 Hypothyroidism, unspecified; I48.2 Chronic atrial fibrillation; I10 Essential (primary) hypertension; Z83.3 Family history of diabetes mellitus; Z79.890 Hormone replacement therapy; Z82.49 Family history of ischemic heart disease and other diseases of the circulatory system; R00.1 Bradycardia, unspecified; F33.1 Major depressive disorder, recurrent, moderate; J98.11 Atelectasis; I44.0 Atrioventricular block, first degree; F41.9 Anxiety disorder, unspecified; R63.0 Anorexia; R15.9 Full incontinence of feces
CPT/HCPCS: 71010; 71045; 80048; 80053; 81001; 82306; 82607; 83520; 83735; 83880; 84443; 84484; 85025; 85610; 85730; 93005; 97162; 97166; 99285; G0378; G8987; G8988; J0360; J2405; J7030